=== PATIENT | male | born 1950 | race Caucasian/White ===

== ENCOUNTER 2022-06-09 15:52 | Inpatient (IN) | payer MEDICARE, OTHER, SELFPAY ==
[2022-06-09] MEDS: ACETAMINOPHEN 325 MG TABLET 650 MG PO (17:55)
[2022-06-09] MEDS: HYDROcodone/acetaminophen (*CRX) 5-325 MG TABLET 1 TAB PO (19:57)
[2022-06-09 20:00] VITALS: O2SAT 90
--- NOTE | 2022-06-09 21:09 | PM.IMHP ---
H&P: HPI History of Present Illness Date/Time: 06/09/22 21:09 Chief Complaint: rehab/ weakness Narrative: this is a 71-year-old male that came to our facility for swing bed placement After went into respiratory distress at an outside hospital and being intubated. Patient was also treated for DKA, influenza , pneumonia . and NSTEMI. patient has a past medical history of heart failure ,diabetes. Patient admitted in swing bed for rehabilitation due to decreased balance decreased mobility in severe limited function endurant and/or mobility. The patient denies SOB, CP, palpitation, extremity numbness, lightheadedness, dizziness, constipation, diarrhea, chills, or fever. Review of Systems Review of Systems: All systems reviewed & are unremarkable except as noted in HPI and below PMFSH Past Medical History Medical History (Updated 06/09/22 @ 21:30 by SALINA Cueto) Anemia Congestive heart failure Diabetes mellitus type 2, insulin dependent Social History Social History Smoking status: Never smoker Second hand tobacco smoke exposure: No Alcohol intake: never Substance use: never Substance use type: does not use Lack of Transportation: No Lack of Food: Never True Current Housing: I Have Housing Concerned About Future Housing: No Difficulty Paying Gas/Electric Bills: No Difficulty Paying for Meds: No Currently Unemployed: No Education: High School Diploma/GED Difficulty w/ Childcare or Family Care: No Spiritual care concerns: No Meds Home Medications and Allergies Home Medications Medication Instructions Recorded Confirmed Type Adult Multivitamin with Iron 1 tab-cap PO DAILY 06/09/22 06/09/22 History aspirin 81 mg tablet,delayed 81 mg PO DAILY 06/09/22 06/09/22 History release atorvastatin 80 mg BYMOUTH HS 06/09/22 06/09/22 History carvedilol 12.5 mg tablet (Coreg) 12.5 mg PO BID 06/09/22 06/09/22 History febuxostat 40 mg tablet 40 mg PO DAILY 06/09/22 06/09/22 History ferrous sulfate 325 mg (65 mg 325 mg PO DAILY 06/09/22 06/09/22 History iron) tablet (Feosol) fluticasone 250 mcg-salmeterol 50 1 inh inhalation Q12H 06/09/22 06/09/22 History mcg/dose blistr powdr for inhalation (Wixela Inhub) hydralazine 50 mg tablet 50 mg PO Q6H 06/09/22 06/09/22 History insulin lispro protamine-lispro 35 unit subcut BID 06/09/22 06/09/22 History 100 unit/mL (75-25) subcutaneous pen (Humalog Mix 75-25 KwikPen) levetiracetam 500 mg tablet 500 mg PO DAILY 06/09/22 06/09/22 History (Keppra) losartan 50 mg tablet (Cozaar) 50 mg PO BID 06/09/22 06/09/22 History metformin 1,000 mg tablet 1,000 mg PO BID 06/09/22 06/09/22 History pantoprazole 40 mg tablet,delayed 40 mg PO BID 06/09/22 06/09/22 History release (Protonix) potassium chloride 20 mEq 20 meq PO DAILY 06/09/22 06/09/22 History tablet,extended release(part/cryst) (Klor-Con M) sertraline 100 mg tablet (Zoloft) 100 mg PO DAILY 06/09/22 06/09/22 History sucralfate 1 gram tablet (Carafate) 1 g PO TIDWMEAL 06/09/22 06/09/22 History Allergies Allergy/AdvReac Type Severity Reaction Status Date / Time Cephalosporins Allergy Unknown Verified 06/09/22 17:46 pioglitazone Allergy Unknown Verified 06/09/22 17:46 Exam Narrative: GENERAL: This is a well-nourished, well-developed patient, in no apparent distress. HEAD: normocephalic, atraumatic. EYES: PERRL. Sclera clear/white. Vision is grossly intact. EARS: External ears normal, auditory canals clear and without drainage, TMs normal without perforation. Hearing grossly intact. NOSE: External nose normal with no obvious nasal discharge, nares without redness, no rhinorrhea. THROAT: Mucous membranes moist, posterior pharynx clear. NECK: Neck supple, non-tender without lymphadenopathy, masses or thyromegaly. CARDIOVASCULAR: Regular rate and rhythm without murmurs, gallops, or rubs. RESPIRATORY: Clear to auscultation. Breath sounds equal bilaterally. No
[2022-06-09 21:12] LABS: Glucose Point of Care 238 mg/dl (65-105)
[2022-06-09] MEDS: hydrALAZINE HCL 25 MG TABLET 50 MG PO (21:23)
[2022-06-09] MEDS: LOSARTAN POTASSIUM 50 MG TABLET PO (21:23)
[2022-06-09 21:24] VITALS: PULSE 73
[2022-06-09] MEDS: carvediloL 12.5 MG TABLET PO (21:24)
[2022-06-09] MEDS: ATORVASTATIN 40 MG TABLET 80 MG BY MOUTH (21:24)
[2022-06-09] MEDS: PANTOPRAZOLE 40 MG TABLET PO (21:25)
[2022-06-09] MEDS: SUCRALFATE 1 GM TABLET PO (21:25)
[2022-06-09] MEDS: SALMET XINAFT/FLUTIC PROPIN 250 MCG/50 MCG INH CAP 1 PUFF INHALATION (21:26)
--- NOTE | 2022-06-09 22:31 | ADMGEN ---
This patient, Craig Pool, was admitted to 2nd Floor Room 210-1. Patient/family oriented to hospital policies and general routines including ID bracelet, bed and alarms, visiting hours, pain management, procedures, bathroom and other care routines, personal items, smoking policy, room service/diet, and visiting hours.
[2022-06-09 23:10] VITALS: BP 144/52; PULSE 72; RESP 17; TEMP 36.8; O2SAT 91
[2022-06-10] MEDS: HYDROcodone/acetaminophen (*CRX) 5-325 MG TABLET 1 TAB PO ×3 (03:19→21:02)
[2022-06-10 05:20] LABS: Hematocrit 28.3 % (37.0-46.0); Mean Corpuscular HGB Conc 31.8 g/dL (32.0-36.0); Mean Corpuscular Hemoglobin 29.9 pg (27.0-31.0); Mean Platelet Volume 11.1 fl (8.7-11.0); Platelet Count Result 296 K/mm3 (150-420); Red Blood Count 3.01 M/mm3 (4.70-6.10); White Blood Count 8.9 K/mm3 (4.8-10.8)
[2022-06-10 05:35] LABS: Anion Gap 9 mmol/L (8-16); Blood Urea Nitrogen 15 mg/dL (7-18); Calcium 8.3 mg/dL (8.5-10.1); Carbon Dioxide 25 mmol/L (21-32); Chloride 104 mmol/L (98-108); Estimated Glomerular Filt Rate > 60; Glucose 210 mg/dL (70-99); Osmolality Calculated 292 mOsm/kg (285-295); Sodium 138 mmol/L (136-145)
[2022-06-10] MEDS: SALMET XINAFT/FLUTIC PROPIN 250 MCG/50 MCG INH CAP 1 PUFF INHALATION ×2 (06:23→18:12)
[2022-06-10] MEDS: hydrALAZINE HCL 25 MG TABLET 50 MG PO ×3 (06:23→18:12)
[2022-06-10 08:00] VITALS: BP 164/70; PULSE 82; RESP 15; TEMP 36.8; O2SAT 91
[2022-06-10 08:07] LABS: Glucose Point of Care 218 mg/dl (65-105)
[2022-06-10] MEDS: SUCRALFATE 1 GM TABLET PO ×3 (08:49→18:12)
[2022-06-10 08:50] VITALS: PULSE 82
[2022-06-10] MEDS: POTASSIUM CHLORIDE 20 MEQ TABLET PO (08:50)
[2022-06-10] MEDS: PANTOPRAZOLE 40 MG TABLET PO ×2 (08:50→18:12)
[2022-06-10] MEDS: carvediloL 12.5 MG TABLET PO ×2 (08:50→18:12)
[2022-06-10] MEDS: LOSARTAN POTASSIUM 50 MG TABLET PO ×2 (08:51→18:12)
[2022-06-10] MEDS: FERROUS SULFATE 324 MG TABLET PO (08:51)
[2022-06-10] MEDS: SERTRALINE HCL 50 MG TABLET 100 MG PO (08:51)
[2022-06-10] MEDS: levETIRAcetam 500 MG TABLET PO (08:51)
[2022-06-10] MEDS: LIDOCAINE 5% PATCH 1 PATCH TRANSDERM (08:51)
[2022-06-10] MEDS: ASPIRIN 81 MG ENTERIC TABLET PO (08:51)
[2022-06-10 11:53] LABS: Glucose Point of Care 268 mg/dl (65-105)
[2022-06-10 16:00] VITALS: BP 147/52; PULSE 74; RESP 20; TEMP 36.8; O2SAT 95
[2022-06-10 17:14] LABS: Glucose Point of Care 283 mg/dl (65-105)
[2022-06-10 18:12] VITALS: PULSE 74
[2022-06-10] MEDS: traMADol HCL (*CRX) 25 MG TABLET PO (19:50)
[2022-06-10] MEDS: ATORVASTATIN 40 MG TABLET 80 MG BY MOUTH (21:01)
[2022-06-10] MEDS: traZODone HCL 50 MG TABLET PO (21:09)
[2022-06-10 21:10] LABS: Glucose Point of Care 219 mg/dl (65-105)
[2022-06-10 23:12] VITALS: BP 155/65; PULSE 66; RESP 16; TEMP 36.6; O2SAT 92
[2022-06-11] MEDS: hydrALAZINE HCL 25 MG TABLET 50 MG PO ×5 (00:20→23:24)
[2022-06-11] MEDS: HYDROcodone/acetaminophen (*CRX) 5-325 MG TABLET 1 TAB PO ×2 (03:10→21:04)
[2022-06-11] MEDS: SALMET XINAFT/FLUTIC PROPIN 250 MCG/50 MCG INH CAP 1 PUFF INHALATION ×2 (05:59→17:48)
[2022-06-11 08:00] VITALS: BP 141/63; PULSE 98; RESP 22; O2SAT 96
[2022-06-11 08:01] LABS: Glucose Point of Care 157 mg/dl (65-105)
[2022-06-11] MEDS: SERTRALINE HCL 50 MG TABLET 100 MG PO (10:02)
[2022-06-11] MEDS: LIDOCAINE 5% PATCH 1 PATCH TRANSDERM (10:02)
[2022-06-11 10:03] VITALS: PULSE 88
[2022-06-11] MEDS: levETIRAcetam 500 MG TABLET PO (10:03)
[2022-06-11] MEDS: POTASSIUM CHLORIDE 20 MEQ TABLET PO (10:03)
[2022-06-11] MEDS: LOSARTAN POTASSIUM 50 MG TABLET PO ×2 (10:03→17:43)
[2022-06-11] MEDS: carvediloL 12.5 MG TABLET PO ×2 (10:03→17:43)
[2022-06-11] MEDS: ASPIRIN 81 MG ENTERIC TABLET PO (10:03)
[2022-06-11] MEDS: SUCRALFATE 1 GM TABLET PO ×3 (10:03→17:44)
[2022-06-11] MEDS: PANTOPRAZOLE 40 MG TABLET PO ×2 (10:03→17:44)
[2022-06-11] MEDS: FERROUS SULFATE 324 MG TABLET PO (10:04)
[2022-06-11 12:10] LABS: Glucose Point of Care 234 mg/dl (65-105)
[2022-06-11 16:00] VITALS: BP 147/64; PULSE 68; RESP 22; TEMP 36.6; O2SAT 96
[2022-06-11 16:49] LABS: Glucose Point of Care 282 mg/dl (65-105)
[2022-06-11 17:43] VITALS: PULSE 84
[2022-06-11] MEDS: traZODone HCL 50 MG TABLET PO (21:04)
[2022-06-11] MEDS: ATORVASTATIN 40 MG TABLET 80 MG BY MOUTH (21:04)
[2022-06-11] MEDS: LORazepam (*CRX) 0.5 MG TABLET PO (21:05)
[2022-06-11 21:13] LABS: Glucose Point of Care 223 mg/dl (65-105)
[2022-06-11 23:24] VITALS: BP 156/59; PULSE 73; RESP 15; TEMP 36.8; O2SAT 91
[2022-06-12] MEDS: SALMET XINAFT/FLUTIC PROPIN 250 MCG/50 MCG INH CAP 1 PUFF INHALATION ×2 (06:18→18:21)
[2022-06-12] MEDS: hydrALAZINE HCL 25 MG TABLET 50 MG PO ×4 (06:18→23:20)
[2022-06-12 07:31] LABS: Glucose Point of Care 129 mg/dl (65-105)
[2022-06-12 08:00] VITALS: BP 176/82; PULSE 77; TEMP 36.8; O2SAT 92
[2022-06-12] MEDS: SUCRALFATE 1 GM TABLET PO ×3 (08:06→16:39)
[2022-06-12] MEDS: POTASSIUM CHLORIDE 20 MEQ TABLET PO (09:00)
[2022-06-12] MEDS: ASPIRIN 81 MG ENTERIC TABLET PO (09:03)
[2022-06-12] MEDS: SERTRALINE HCL 50 MG TABLET 100 MG PO (09:04)
[2022-06-12 09:05] VITALS: PULSE 90
[2022-06-12] MEDS: LOSARTAN POTASSIUM 50 MG TABLET PO ×2 (09:05→16:38)
[2022-06-12] MEDS: levETIRAcetam 500 MG TABLET PO (09:05)
[2022-06-12] MEDS: FERROUS SULFATE 324 MG TABLET PO (09:05)
[2022-06-12] MEDS: carvediloL 12.5 MG TABLET PO ×2 (09:05→16:39)
[2022-06-12] MEDS: PANTOPRAZOLE 40 MG TABLET PO ×2 (09:05→17:17)
[2022-06-12] MEDS: HYDROcodone/acetaminophen (*CRX) 5-325 MG TABLET 1 TAB PO ×2 (10:00→20:10)
--- NOTE | 2022-06-12 10:02 | PC.NURSE ---
Patient c/o pain to epigastric/chest area PRN norco given, AGRICULTURAL LOAN OFFICER informed. Patient has great deal of anxiety
--- NOTE | 2022-06-12 10:10 | P.PNCROSS_ITS ---
Event Note Event Note Event Note: patient complains a cough, congestion, allergies and back pain. will add medi cation for treatment
[2022-06-12] MEDS: BENZONATATE 100 MG CAPSULE 200 MG PO ×3 (10:34→16:39)
[2022-06-12] MEDS: DICLOFENAC SODIUM 1% 100 GM GEL (*BKC) 1 APPLIC TOPICAL ×4 (10:35→20:09)
[2022-06-12] MEDS: guaiFENesin 12 HR 600 MG TABCR 1200 MG PO ×2 (10:35→20:09)
[2022-06-12] MEDS: LORATADINE 10 MG TABLET PO (10:35)
[2022-06-12 11:52] LABS: Glucose Point of Care 286 mg/dl (65-105)
--- NOTE | 2022-06-12 13:27 | PC.NURSE ---
Patient reports neck pain improved with Voltaren cream and pain medication. Independent in room
[2022-06-12 16:00] VITALS: BP 173/76; PULSE 68; RESP 18; TEMP 36.8; O2SAT 95
[2022-06-12 16:39] VITALS: PULSE 69
[2022-06-12 16:49] LABS: Glucose Point of Care 250 mg/dl (65-105)
[2022-06-12 20:00] VITALS: PULSE 69; RESP 18; O2SAT 95
[2022-06-12] MEDS: traZODone HCL 50 MG TABLET PO (20:09)
[2022-06-12] MEDS: FLUTICASONE PROPIONATE 0.05% NA SPR 16 GM BTL (*BKC) 1 SPRAY NASAL (20:09)
[2022-06-12] MEDS: LORazepam (*CRX) 0.5 MG TABLET PO (20:10)
[2022-06-12] MEDS: ATORVASTATIN 40 MG TABLET 80 MG BY MOUTH (20:10)
[2022-06-12 20:14] LABS: Glucose Point of Care 289 mg/dl (65-105)
[2022-06-12 23:52] VITALS: BP 143/60; PULSE 76; RESP 17; TEMP 36.6; O2SAT 95
[2022-06-13 05:30] LABS: Hematocrit 30.2 % (37.0-46.0); Hemoglobin 9.4 g/dL (12.4-15.3)
[2022-06-13] MEDS: SALMET XINAFT/FLUTIC PROPIN 250 MCG/50 MCG INH CAP 1 PUFF INHALATION ×2 (05:34→19:38)
[2022-06-13] MEDS: hydrALAZINE HCL 25 MG TABLET 50 MG PO ×4 (05:34→23:32)
[2022-06-13 08:00] VITALS: BP 174/72; PULSE 74; RESP 18; TEMP 36.5; O2SAT 97
[2022-06-13 08:21] LABS: Glucose Point of Care 170 mg/dl (65-105)
[2022-06-13] MEDS: FLUTICASONE PROPIONATE 0.05% NA SPR 16 GM BTL (*BKC) 1 SPRAY NASAL ×2 (09:18→21:11)
[2022-06-13] MEDS: DICLOFENAC SODIUM 1% 100 GM GEL (*BKC) 1 APPLIC TOPICAL ×4 (09:18→21:11)
[2022-06-13 09:19] VITALS: PULSE 78
[2022-06-13] MEDS: SERTRALINE HCL 50 MG TABLET 100 MG PO (09:19)
[2022-06-13] MEDS: carvediloL 12.5 MG TABLET PO ×2 (09:19→16:47)
[2022-06-13] MEDS: POTASSIUM CHLORIDE 20 MEQ TABLET PO (09:20)
[2022-06-13] MEDS: PANTOPRAZOLE 40 MG TABLET PO ×2 (09:20→16:47)
[2022-06-13] MEDS: BENZONATATE 100 MG CAPSULE 200 MG PO ×3 (09:20→16:46)
[2022-06-13] MEDS: ASPIRIN 81 MG ENTERIC TABLET PO (09:21)
[2022-06-13] MEDS: levETIRAcetam 500 MG TABLET PO (09:21)
[2022-06-13] MEDS: LORATADINE 10 MG TABLET PO (09:22)
[2022-06-13] MEDS: SUCRALFATE 1 GM TABLET PO ×3 (09:22→16:45)
[2022-06-13] MEDS: LOSARTAN POTASSIUM 50 MG TABLET PO ×2 (09:22→16:47)
[2022-06-13] MEDS: FERROUS SULFATE 324 MG TABLET PO (09:22)
[2022-06-13] MEDS: guaiFENesin 12 HR 600 MG TABCR 1200 MG PO ×2 (09:26→21:10)
[2022-06-13] MEDS: HYDROcodone/acetaminophen (*CRX) 5-325 MG TABLET 1 TAB PO ×2 (09:33→21:11)
[2022-06-13 11:30] LABS: Glucose Point of Care 264 mg/dl (65-105)
--- NOTE | 2022-06-13 14:47 | PC.NURSE ---
pt after working out with therapy and and bending and standing had a small amt of brownish looking sputum after coughing it up.
[2022-06-13 16:00] VITALS: BP 169/85; PULSE 78; RESP 18; TEMP 36.5; O2SAT 95
[2022-06-13 16:33] LABS: Glucose Point of Care 247 mg/dl (65-105)
[2022-06-13 16:47] VITALS: PULSE 77
[2022-06-13] MEDS: traZODone HCL 50 MG TABLET PO (21:10)
[2022-06-13] MEDS: ATORVASTATIN 40 MG TABLET 80 MG BY MOUTH (21:11)
[2022-06-13] MEDS: LORazepam (*CRX) 0.5 MG TABLET PO (21:14)
[2022-06-13 21:22] LABS: Glucose Point of Care 209 mg/dl (65-105)
[2022-06-13 23:08] VITALS: BP 152/76; PULSE 69; RESP 17; TEMP 36.9; O2SAT 98
[2022-06-14] MEDS: ACETAMINOPHEN 325 MG TABLET 650 MG PO (05:14)
[2022-06-14] MEDS: hydrALAZINE HCL 25 MG TABLET 50 MG PO ×2 (05:14→12:17)
[2022-06-14] MEDS: SALMET XINAFT/FLUTIC PROPIN 250 MCG/50 MCG INH CAP 1 PUFF INHALATION (05:31)
[2022-06-14 08:00] VITALS: BP 180/78; PULSE 84; RESP 18; TEMP 36.6; O2SAT 97
[2022-06-14 08:11] LABS: Glucose Point of Care 161 mg/dl (65-105)
[2022-06-14] MEDS: FLUTICASONE PROPIONATE 0.05% NA SPR 16 GM BTL (*BKC) 1 SPRAY NASAL (08:50)
[2022-06-14] MEDS: HYDROcodone/acetaminophen (*CRX) 5-325 MG TABLET 1 TAB PO (08:51)
[2022-06-14] MEDS: ASPIRIN 81 MG ENTERIC TABLET PO (08:52)
[2022-06-14] MEDS: SUCRALFATE 1 GM TABLET PO ×2 (08:52→12:18)
[2022-06-14] MEDS: SERTRALINE HCL 50 MG TABLET 100 MG PO (08:52)
[2022-06-14] MEDS: BENZONATATE 100 MG CAPSULE 200 MG PO ×2 (08:52→12:18)
[2022-06-14] MEDS: DICLOFENAC SODIUM 1% 100 GM GEL (*BKC) 1 APPLIC TOPICAL ×2 (08:52→12:17)
[2022-06-14] MEDS: PANTOPRAZOLE 40 MG TABLET PO (08:52)
[2022-06-14 08:53] VITALS: PULSE 82
[2022-06-14] MEDS: LOSARTAN POTASSIUM 50 MG TABLET PO (08:53)
[2022-06-14] MEDS: guaiFENesin 12 HR 600 MG TABCR 1200 MG PO (08:53)
[2022-06-14] MEDS: LORATADINE 10 MG TABLET PO (08:53)
[2022-06-14] MEDS: FERROUS SULFATE 324 MG TABLET PO (08:53)
[2022-06-14] MEDS: carvediloL 12.5 MG TABLET PO (08:53)
[2022-06-14] MEDS: levETIRAcetam 500 MG TABLET PO (08:53)
[2022-06-14] MEDS: POTASSIUM CHLORIDE 20 MEQ TABLET PO (08:53)
[2022-06-14] MEDS: traMADol HCL (*CRX) 25 MG TABLET PO (10:52)
[2022-06-14] MEDS: LORazepam (*CRX) 0.5 MG TABLET PO (11:04)
[2022-06-14 11:06] VITALS: BP 180/94; PULSE 86; RESP 18; TEMP 36.3; O2SAT 92
[2022-06-14 12:03] LABS: Influenza A QL RT-PCR Negative (Negative); Influenza B QL RT-PCR Negative (Negative); SARS-CoV-2 RNA PCR Negative (Negative)
[2022-06-14 12:04] LABS: RSV RNA, RT-PCR Negative (Negative)
[2022-06-14 12:13] LABS: Troponin I 92.7 ng/L (0.00-60.4)
--- NOTE | 2022-06-14 12:13 | ECG_ITS ---
Measurements Intervals [place] Rate: 89 P: 81 MA: 138 QRS: 41 QRSD: 93 T: -52 QT: 372 QTc: 454 Interpretive Statements SINUS RHYTHM SHORT MA INTERVAL POSSIBLE RIGHT VENTRICULAR CONDUCTION DELAY [RSR (QR) IN V1/V2] NONSPECIFIC ST & T-WAVE ABNORMALITY ABNORMAL NO PREVIOUS ECG AVAILABLE FOR COMPARISON Electronically Signed On 06-15-2022 7:17:38 HAND TIER by Franklin Mcneill M.D.
--- NOTE | 2022-06-14 12:14 | PM.EVENT ---
Event Note Event Note Event Note: Patient complaining of severe back pain and it has radiated to his back and he has some nausea noted. Trop ordered which are critical we will see what EKG is showing and attempt to transfer
--- NOTE | 2022-06-14 12:47 | PM.EVENT ---
Event Note Event Note Event Note: Troponins is 92.7 Dr. Ernandez is patient normal fermentation operator and he has accepted patient . has come with the disk for the hospital to see the clogged arteries but due to bleeding ulcer they were not able to place on anticoagulation
[2022-06-14 13:00] LABS: Troponin I 366.2 ng/L (0.00-60.4)
--- NOTE | 2022-06-14 13:17 | PM.DS ---
DS: Admitting Diagnosis Discharge Date 06/14/2022 Admitting Diagnosis Weakness, GI Bleed DS: Discharge Diagnosis Discharge Diagnosis (1) Anemia: Code(s): D64.9 - Anemia, unspecified Status: Acute Assessment and Plan: secondary to iron deficiency anemia and GI bleed iron panel completed patient will continue supplement patient will have to follow up with GI specialist (2) History of GI bleed: Code(s): Z87.19 - Personal history of other diseases of the digestive system Status: Acute Assessment and Plan: endoscopic completed at outside hospital gastric ulcer status post clipping x4 completed patient will need to follow up with GI outpatient for colonoscopy in June (3) DONNY (obstructive sleep apnea): Code(s): G47.33 - Obstructive sleep apnea (adult) (pediatric) Status: Acute Assessment and Plan: patient does not use CPAP at home (4) Congestive heart failure: Code(s): I50.9 - Heart failure, unspecified Status: Acute Assessment and Plan: systolic CHF EF of 40% patient will need to follow up with Cardiology for outpatient catheterization PCI in [facility] thoracentesis completed on 06/05 left 530 mL and right 550 (5) Diabetes mellitus type 2, insulin dependent: Code(s): E11.9 - Type 2 diabetes mellitus without complications; Z79.4 - senior living (current) use of insulin Status: Acute Assessment and Plan: A1c pending continue active stents with sliding scale hypoglycemic protocol continue home medication (6) Weakness: Code(s): R53.1 - Weakness Status: Acute Assessment and Plan: ? Exhibit tolerance during physical activity as evidenced by a normal fluctuation of vital signs during physical activity. ? Patient will be ability to perform required activities of daily living. ? Provide appropriate nutrition for healing and strength. ? Use appropriate to prevent falls. ? Continue physical therapy/occupational therapy. (7) Non-STEMI (non-ST elevated myocardial infarction): Code(s): I21.4 - Non-ST elevation (NSTEMI) myocardial infarction Status: Acute Assessment and Plan: Troponin evaluated pt complaining of back pain radiating to his left arm ASA 325 Nitro started prior to transfer 5mcg (8) Elevated troponin: Code(s): R77.8 - Other specified abnormalities of plasma proteins Status: Acute DS: Summary Hospital Course Reason for hospitalization: Swing pt for rehab Hospital Course: Transferred to [facility] and hospitalist started on Nitro drip and recvd ASA This is a 71-year-old male that was admitted to the hospital as a swing patient he came from outlying facility due to weakness as he had had a GI bleed and non-STEMI approximately 1 month ago patient had been complaining stating that he had back pain but the back pain was going to his back his arm he became diaphoretic he was not feeling well and just wanted something for pain. I checked patient's troponins which were slightly elevated at 90 and I repeated in 4 hours later troponins went to 290 started patient on a nitro drip due to high blood pressure gave the patient 325 of aspirin called spoke with [place] grout machine operator about starting heparin drip patient recently had a GI bleed with some bleeding ulcers at this time he was deferred and they will evaluate patient as to if he needs a heparin. patient initially refused to transfer after arrived he agreed Time Spent with Patient Time attestation: Total time spent providing and/or coordinating discharge services: Exam Narrative: GENERAL: This is a well-nourished, well-developed patient, in no apparent distress. HEAD: normocephalic, atraumatic. EYES: PERRL. Sclera clear/white. Vision is grossly intact. EARS: External ears normal, t. NOSE: External nose normal with no obvious nasal discharge, nares without redness, no rhinorrhe
[2022-06-14 14:22] VITALS: BP 167/79; PULSE 88
[2022-06-14] MEDS: NITROGLYCERIN/D5W 200 MCG/ML 50 MG/250 ML BTL IV CONT (14:22)
[2022-06-14] MEDS: ASPIRIN 81 MG CHEWABLE TABLET 243 MG PO (14:29)
--- NOTE | 2022-06-14 15:14 | PC.NURSE ---
1130 patient up in room. claims he has had chills off and on all night. claims pain meds given to him earilier has had no relief. claims he feels a little nauseated. claims the pain is in lower back and his neck is stiff more than usual. tells other staff pain goes down his arms and rubs his r arm. no c/o voiced about radiating pain to this nurse. denies any pain at this time. does co sob c/o lungs feeling tight. did hear some wheezes. prn ativan and pain med given. tack picker aware. covid swabs and flu swabs obtained.--kvrn 1230 claims pain is gone. just wants to go home. kvrn 1320 in room. claims he is not having pains any more. just tired due to no sleep last night. iv started in l hand.--------kvrn 1520 report given to tanesha at [facility]. awaiting for tranfer at this time. cont to still deny cp or any. sleepy. at bedside. nitro gtt cont. kvrn
[2022-06-14 15:28] VITALS: BP 178/84; PULSE 72; RESP 18; TEMP 36.6; O2SAT 93
[2022-06-14 15:54] VITALS: BP 180/70; PULSE 72; RESP 18; TEMP 36.1; O2SAT 92
[2022-06-14 16:28] LABS: Glucose Point of Care 238 mg/dl (65-105)
--- NOTE | 2022-06-14 17:49 | PC.NURSE ---
1645 ambulance here care turned over. bp 152/79. denies cp. nitro gtt cont. walked over to stretcher. care turned over.
--- NOTE | 2022-06-19 13:33 | PC.NURSE ---
Medications finalized on chart.
[2022-07-11 15:31] LABS: Glucose Point of Care 312 mg/dl (65-105)
== END 2022-06-14 16:45 | disposition short-term general hospital (02) | DRG 947 ==
PROVIDERS: Nurse Practitioner; Nurse Practitioner Family; Admitting Provider Internal Medicine; PCP Family Medicine; Visit Provider Internal Medicine
DX: R53.1 Weakness (principal); I21.4 Non-ST elevation (NSTEMI) myocardial infarction; I50.22 Chronic systolic (congestive) heart failure; E11.9 Type 2 diabetes mellitus without complications; D50.0 Iron deficiency anemia secondary to blood loss (chronic); D50.9 Iron deficiency anemia, unspecified; R77.8 Other specified abnormalities of plasma proteins; G47.33 Obstructive sleep apnea (adult) (pediatric); Z20.822 Contact with and (suspected) exposure to COVID-19; Z79.4 Long term (current) use of insulin; Z79.82 Long term (current) use of aspirin; Z87.11 Personal history of peptic ulcer disease
CPT/HCPCS: 36415; 80048; 82948; 84484; 85014; 85018; 85027; 87637; 93005; 97110; 97161; 97165; 97530; 97535; A9270; J1815

== ENCOUNTER 2024-07-06 14:44 | Emergency (ER) | payer MEDICARE, SELFPAY ==
[2024-07-06] VITALS (44 sets, daily range): BP systolic 160–219; BP diastolic 68–127; PULSE 74–98; RESP 12–25; TEMP 36.9–37.6; O2SAT 81–97
--- NOTE | ~2024-07-06 | CT_ITS ---
CTA brain carotid Ordering provider: Franklin Lopez MD History: . Fall, possible head injury/ AMS/ unsteady gait . Comparison: None. Technique: CT angiogram head and neck was performed following timed intravenous injection of contrast . Thin slice axial images and reformatted coronal images were obtained. Three dimensional reformatted images of the brain were also obtained using a [employer] workstation. DLP: 1201 mGy-cm FINDINGS: HEAD: --ANTERIOR AND MIDDLE CEREBRAL ARTERIES AND BRANCHES: Normal caliber and contour. --INTERNAL CAROTID ARTERIES: Moderate diffuse atheromatous disease without significant stenosis. No o cclusion. --BASILAR ARTERY AND BRANCHES: Normal caliber and contour. No discrete atheromatous disease. --POSTERIOR CEREBRAL ARTERIES: Normal caliber and contour --POSTERIOR COMMUNICATING ARTERIES: Not well visualized likely related to congenital absence or small size. --ANEURYSM: None visualized. --BRAIN: Please refer to report of CT head performed the same day. --BONES AND SUPERFICIAL SOFT TISSUES: Please refer to report of CT head performed the same day. --PARANASAL SINUSES AND MASTOIDS: Please refer to report of CT head done the same day. NECK: --RIGHT CERVICAL CAROTID SYSTEM: Mild atheromatous disease of the carotid bulb and proximal internal carotid artery without significant stenosis. Percent stenosis per NASCET criteria is 0%. No carotid dissection. No significant stenosis of the right-sided cervical carotid system. --LEFT CERVICAL CAROTID SYSTEM: Mild atheromatous disease of the carotid bulb and proximal external c arotid artery without significant stenosis. Percent stenosis per NASCET criteria is 0% No carotid di ssection. No significant stenosis of the left-sided cervical carotid system. --VERTEBRAL ARTERIES: Moderate atheromatous disease, specifically within the left vertebral artery, w ith otherwise normal caliber and contour. --VISUALIZED AORTIC ARCH AND BRANCHING VESSELS: Mild atheromatous disease but no significant stenosis . --SOFT TISSUES: Unremarkable --CERVICAL SPINE: Age advanced degenerative changes. LUNGS: Patchy groundglass opacification within the right hemithorax with diffuse nodularity. Dedicate d CT examination of the chest is recommended. IMPRESSION: 1. Unremarkable CTA head of the and neck. 2. Percent stenosis per NASCET criteria is 0%, bilaterally. 3. Patchy groundglass opacification within the right hemithorax with diffuse nodularity. Dedicated C T examination of the chest is recommended. Reviewed, dictated and finalized at location A. ICITY PERSON IMPRESSION: 1. Unremarkable CTA head of the and neck. 2. Percent stenosis per NASCET criteria is 0%, bilaterally. 3. Patchy groundglass opacification within the right hemithorax with diffuse n odularity. Dedicated CT examination of the chest is recommended.
--- NOTE | ~2024-07-06 | CT_ITS ---
Clinical indication:Abnormal lung apices on CT examination of the cervical spine COMPARISON:CT of the cervical spine dated 07/06/2024 TECHNIQUE: Multiple contiguous axial images of the chest were performed without the administration of intravenous contrast. FINDINGS: Patchy groundglass consolidation within both the right middle and lower lobes. A small right-sided pl eural effusion is also noted. Interstitial thickening is detected throughout the remainder of the bilateral lung rincon. No acute displaced right-sided rib fracture is appreciated. (Although examination is somewhat limited by motion artifact). No discrete abnormality is identified within the overlying soft tissues. Calcified atherosclerotic disease is identified within the coronary arteries. IMPRESSION: Patchy groundglass consolidation within the right middle and lower lobes for which infectious/inflamm atory source is suspected. Small right-sided pleural effusion. Reviewed, dictated and finalized at location A. YOLOGY TEACHER IMPRESSION: Patchy groundglass consolidation within the right middle and lower lobes for wh ich infectious/inflammatory source is suspected. Small right-sided pleural effusion.
--- NOTE | ~2024-07-06 | CT_ITS ---
History: Bilateral lower extremity paresthesias and subjective slurred speech PROCEDURE: CT cervical spine without intravenous contrast. COMPARISON: None TECHNIQUE: Multiple contiguous axial images of the cervical spine were performed without the administration of i ntravenous contrast. DLP: mGy-cm FINDINGS: Straightening and slight reversal of the normal curvature of the cervical spine is identified, likely muscular in origin. Severe degenerative disease is identified, with osteophyte formation, and disc space narrowing. Endplate changes are also noted, as well as hypertrophy of the facets. No acute fractures are present. Left apical scarring. The remainder of the bilateral apices are unremarkable. No soft tissue abnormality is present. The airway is patent.. Impression: Straightening and slight reversal of the normal curvature of the cervical spine, likely muscular in o rigin. Degenerative disease, without acute fracture. Reviewed, dictated and finalized at location A. TRONICS COMPUTER MECHANIC Impression: Straightening and slight reversal of the normal curvature of the cervical spine , likely muscular in origin. Degenerative disease, without acute fracture.
--- NOTE | ~2024-07-06 | CT_ITS ---
History: Altered mental status. Fall, possible head injury. PROCEDURE: CT head without contrast. COMPARISON: None TECHNIQUE: Axial imaging of the head performed from the skull base to the vertex without IV contrast. Sagittal a nd coronal reformations obtained. DLP: 605 mGy-cm FINDINGS: The ventricles are normal in size, shape and position. There is no mass, mass effect or midline shift. There is no abnormal extra-axial fluid collection or intracranial hemorrhage. Visualized paranasal sinuses are clear. The mastoid air cells are well aerated. No acute displaced fractures within the overlying cranium. Impression: No acute intracranial hemorrhage or suspicious mass effect. Reviewed, dictated and finalized at location A. P TECH Impression: No acute intracranial hemorrhage or suspicious mass effect.
--- NOTE | ~2024-07-06 | XR_ITS ---
HISTORY: fall, Lt. shoulder pain/ limited ROM COMPARISON: None TECHNIQUE: 4 views of the left shoulder were performed FINDINGS: No acute fracture. Trace widening of the acromioclavicular joint space is identified (measuring 6.9 mm in width) suggest ing acromioclavicular joint injury The glenohumeral joint space is maintained The visualized portion of the adjacent left lung is clear. The humeral head is well seated within the glenoid fossa. IMPRESSION: No acute fracture or anterior dislocation. Possible acromioclavicular joint injury, as detailed above. Reviewed, dictated and finalized at location A. H PAINTER
--- NOTE | 2024-07-06 15:04 | ED.GENADULT ---
HPI - General Adult General Chief complaint: Altered Mental Status Stated complaint: shoulder pain, weakness Source: patient Mode of arrival: ambulatory Limitations: no limitations History of Present Illness HPI narrative: 73-year-old white male slipped on the ice yesterday and fell against his truck hitting his head and his left shoulder. Since then he has had soreness in the left shoulder difficult to move around. Today they were at a restaurant and patient was unable to order for himself as he normally does. He really was not acting right got up from the table his asked him where he was going. Patient stated outside but this was not appropriate at the time. patient spilled coffee on his cells twice and spilled coffee on the table twice. stated even bulwark carpenter thought there was something wrong with him. He was driving erratically all over the road according to the . Complains of pain in left shoulder hurts to move it. Otherwise been eating drinking voiding and stooling fine. said he does not have a history of dementia but his primary care provider wanted him to do a memory test last April and he got angry and left the office. His blood sugar was 268 per today is on insulin takes 30 units in the morning. stated he slept late as he always does woke up at 1:00 p.m.. says last known well was last night. Past medical history: History of DKA diabetes influenza pneumonia non-STEMI heart failure CPAP for obstructive sleep apnea Related Data Home Medications ?Medication ?Instructions ?Recorded ?Confirmed ?Last Taken ?Type Adult Multivitamin with Iron 1 tab-cap PO DAILY 06/09/22 06/09/22 Unknown History aspirin 81 mg tablet,delayed 81 mg PO DAILY 06/09/22 06/09/22 Unknown History release atorvastatin 80 mg BYMOUTH HS 06/09/22 06/09/22 Unknown History carvedilol 12.5 mg tablet (Coreg) 12.5 mg PO BID 06/09/22 06/09/22 Unknown History febuxostat 40 mg tablet 40 mg PO DAILY 06/09/22 06/09/22 Unknown History ferrous sulfate 325 mg (65 mg 325 mg PO DAILY 06/09/22 06/09/22 Unknown History iron) tablet (Feosol) fluticasone 250 mcg-salmeterol 50 1 inh inhalation Q12H 06/09/22 06/09/22 Unknown History mcg/dose blistr powdr for inhalation (Wixela Inhub) hydralazine 50 mg tablet 50 mg PO Q6H 06/09/22 06/09/22 Unknown History insulin lispro protamine-lispro 35 unit subcut BID 06/09/22 06/09/22 Unknown History 100 unit/mL (75-25) subcutaneous pen (Humalog Mix 75-25 KwikPen) levetiracetam 500 mg tablet 500 mg PO DAILY 06/09/22 06/09/22 Unknown History (Keppra) losartan 50 mg tablet (Cozaar) 50 mg PO BID 06/09/22 06/09/22 Unknown History metformin 1,000 mg tablet 1,000 mg PO BID 06/09/22 06/09/22 Unknown History pantoprazole 40 mg tablet,delayed 40 mg PO BID 06/09/22 06/09/22 Unknown History release (Protonix) potassium chloride 20 mEq 20 meq PO DAILY 06/09/22 06/09/22 Unknown History tablet,extended release(part/cryst) (Klor-Con M) sertraline 100 mg tablet (Zoloft) 100 mg PO DAILY 06/09/22 06/09/22 Unknown History sucralfate 1 gram tablet (Carafate) 1 g PO TIDWMEAL 06/09/22 06/09/22 Unknown History Allergies Allergy/AdvReac Type Severity Reaction Status Date / Time Cephalosporins Allergy Unknown Verified 07/06/24 15:39 pioglitazone Allergy Unknown Verified 07/06/24 15:39 Review of Systems Review of Systems: All systems reviewed & are unremarkable except as noted in HPI and below [facility] Past Medical History Medical History (Updated 07/06/24 @ 20:48 by Franklin Lopez MD) Anemia Congestive heart failure Diabetes mellitus type 2, insulin dependent Social History Social History Smoking status: Never smoker Second hand tobacco smoke exposure: No Alcohol intake: never Substance use: never Substance use type: does not use Lack of Transportation: No Lack of Food: Never True Current Housing: I Have Housing Concerned About Future Housing: No Difficulty Paying Gas/Electric Bills: No Difficulty Paying for Meds: No Currently Unemployed: No Education: High School Diploma/GED Difficulty w/ Childcare or Family Care: No Spiritual care concerns: No Exam Narrative: ?White male patient with no apparent distress.? Knows where he is at does not really know why his called the ambulance. He knows the month and the president his name his . Head normocephalic, atraumatic.? Eyes conjunctiva pink sclera nonicteric.? Extraocular movements are intact.? Ears externally normal.? Oropharynx is clear with moist mucous membranes without exudates.? Neck is supple nontender no lymphadenopathy.? Back is nontender.? Lungs are clear.? Heart is regular rate and rhythm without murmurs gallops or rubs.? Chest wall nontender. Abdomen is soft and nontender no hepatosplenomegaly or masses no CVA tenderness no abdominal bruits.? Extremities no cyanosis clubbing or edema.? Skin is warm and dry without rashes or lesions.? Neurological patient is alert and oriented x4.? Motor and sensory grossly intact.? Gait is normal. Patient cannot remember 3 objects within seconds of me she showing them to him and hiding them away. NIH scale 6 Course Vital Signs Vital signs: Vital Signs Temperature 37.4 C 07/06/24 14:44 Pulse Rate 87 07/06/24 14:44 Respiratory Rate 20 07/06/24 14:44 Blood Pressure 210/83 H 07/06/24 14:44 Pulse Oximetry 94 07/06/24 14:44 Oxygen Delivery Room Air 07/06/24 14:44 Temperature 36.9 C 07/06/24 18:00 Pulse Rate 84 07/06/24 20:32 Respiratory Rate 20 07/06/24 20:32 Blood Pressure 174/74 H 07/06/24 20:32 Pulse Oximetry 95 07/06/24 20:32 Oxygen Delivery Nasal Cannula 07/06/24 18:00 Oxygen Flow Rate 4 07/06/24 19:39 Medical Decision Making [facility] Narrative Medical decision making narrative: ?Patient placed in room: 7 with his by EMS, blood cultures drawn ? History and physical was performed. CT head with out contrast was negative per radiologist CT head neck with IV contrast: IMPRESSION: 1. Unremarkable CTA head of the and neck. 2. Percent stenosis per NASCET criteria is 0%, bilaterally. 3. Patchy groundglass opacification within the right hemithorax with diffuse nodularity. Dedicated CT examination of the chest is recommended. right shoulder x-ray: Possible AC separation. Negative troponin ETOH and coags. WBC 16 H&H 10.6 and 32.2 Potassium 3.2 BUN 35 creatinine 1.93 blood sugar 282 Osmo 306 GFR 34 alk phos 122 the rest of CMP is normal. Magnesium 1.5 Lactic acid 1.0 UA and THERAPY ASSISTANT urine showed +2 protein otherwise was negative ABGs On 4 L nasal cannula COVID flu RSV All negative CT chest without per radiologist: IMPRESSION: Patchy groundglass consolidation within the right middle and lower lobes for which infectious/inflammatory source is suspected. Small right-sided pleural effusion. Independent Historian: EMS External Source Review: Differential Dx includes but not limited to: stroke fracture dislocation internal hemorrhage cerebral hemorrhage Medications were Reviewed: medicines reviewed Medications given: normal saline 125 an hour, KCL 40 mEq p.o., Levaquin 500 IV Independently Interpreted by me: EKG shows sinus rhythm at rate 89 right bundle-branch block left anterior fascicular block impression abnormal EKG is independently interpreted by me. Patient had a RSR prime pattern on his EKG 2 years ago May 2022. Shared decision Making: Evaluation discussed with patient his all questions were asked and answered and they agreed with plan. Social Situation Impacting Patients Care: history of TIA 2 years ago associated with the same symptomatology trouble naming things altered mental status at that time he also had pneumonia and influenza. Discussed with [place] nurse practitioner at 4:47 p.m.. She stated patient needs a higher levels care where he can have an MRI evaluation by Neurology for stroke Discussed with Drs. Jesus and Chelly at [facility] accepts transfer and patient will be admitted to inpatient ICU DISCHARGE DIAGNOSIS: Altered mental status, probable acute ischemic stroke, renal insufficiency, mild hypokalemia, hypomagnesemia , pneumonia DISPOSITION : transfer to higher care CONDITION AT DISCHARGE: stable Vital Signs Vital Signs: Vital Signs Temperature 37.4 C 07/06/24 14:44 Pulse Rate 87 07/06/24 14:44 Respiratory Rate 20 07/06/24 14:44 Blood Pressure 210/83 H 07/06/24 14:44 Pulse Oximetry 94 07/06/24 14:44 Oxygen Delivery Room Air 07/06/24 14:44 Temperature 36.9 C 07/06/24 18:00 Pulse Rate 84 07/06/24 20:32 Respiratory Rate 20 07/06/24 20:32 Blood Pressure 174/74 H 07/06/24 20:32 Pulse Oximetry 95 07/06/24 20:32 Oxygen Delivery Nasal Cannula 07/06/24 18:00 Oxygen Flow Rate 4 07/06/24 19:39 Lab Data 07/06/24 15:52 07/06/24 15:52 Labs: Lab Results 07/06/24 07/06/24 07/06/24 Range/Units 15:52 16:03 18:02 WBC 16.0 H (4.8-10.8) K/mm3 RBC 3.55 L (4.70-6.10) M/mm3 Hgb 10.6 L (12.4-15.3) g/dL Hct 32.2 L (37.0-46.0) % MCV 90.7 (78.0-102.0) fL MCH 29.9 (27.0-31.0) pg MCHC 32.9 (32-36) g/dL RDW 13.2 (11.6-14.4) % Plt Count 188 (150-420) K/mm3 MPV 12.1 H (8.7-11.0) fl PT 10.8 (9.50-12.1) Seconds INR 1.0 APTT 27.1 (23.9-30.70) Sec Sodium 139 (136-145) mmol/L Potassium 3.2 L (3.5-5.1) mmol/L Chloride 100 (98-108) mmol/L Carbon Dioxide 25 (21-32) mmol/L Anion Gap 14 H (4-12) mmol/L BUN 35 H (7-18) mg/dL Creatinine 1.93 H (0.70-1.30) mg/dL Estim Creat Clear Calc 31 ml/min Estimated GFR 34 L (59 - ) Glucose 282 H (70-99) mg/dL Calculated Osmolality 306 H (285-295) mOsm/kg Lactic Acid 1.0 (0.4-2.0) mmol/L Calcium 8.7 (8.5-10.1) mg/dL Magnesium 1.5 L (1.8-2.4) mg/dL Total Bilirubin 0.7 (0.00-1.00) mg/dL AST 20 (15-37) U/L ALT 35 (16-63) U/L Alkaline Phosphatase 122 H (46-116) U/L Troponin I 20.7 (0.00-60.4) ng/L Total Protein 6.9 (6.4-8.2) g/dL Albumin 3.5 (3.4-5.0) g/dL Urine Color Light yellow (Yellow) Urine Appearance Clear (Clear) Urine pH 5.5 (5.0-8.0) Ur Specific [place] 1.015 (1.010-1.020) Urine Protein 2+ H (Negative) Urine Glucose (UA) Negative (Negative) Urine Ketones Negative (Negative) Ur Blood (Man) Negative (Negative) Urine Nitrate Negative (Negative) Urine Bilirubin Negative (Negative) Urine Urobilinogen 0.2 (0.2-1.0) mg/dL Leukocyte Esterase Rfl Negative (Negative) TORY/UL Amorphous Sediment Few H (None) Ethyl Alcohol < 3 (0-6) mg/dL Influenza A (RT-PCR) Negative (Negative) Influenza B (RT-PCR) Negative (Negative) RSV (RT-PCR) Negative (Negative) SARS-CoV-2 RNA (RT-PCR) Negative (Negative) ABG Data ABG results: 07/06/24 18:44 Puncture Site Right radial ABG pH 7.43 ABG pCO2 33.3 L ABG pO2 84.0 ABG PO2/FiO2 Ratio Not Reportable ABG HCO3 21.7 L ABG O2 Saturation 95.1 ABG O2 Content 15.9 L ABG Base Excess -2.0 L A-a Gradient Not Reportable Oxyhemoglobin 94.6 O2 Delivery Device Nasal cannula O2 Liters/Min 4.0 Discharge Plan Discharge Clinical Impression: Acute alteration in mental status, Acute ischemic stroke, Renal insufficiency Pneumonia Qualifiers: Pneumonia type: due to unspecified organism Laterality: unspecified laterality Lung location: unspecified part of lung Qualified Code(s): J18.9 - Pneumonia, unspecified organism Patient Disposition: Acute Care Hospital Condition: Stable Additional Instructions: Drs. Jesus and Chelly at [facility] accepts transfer and patient will be admitted to inpatient ICU Patient Language: Portuguese Prescriptions: No Action atorvastatin 80 mg BYMOUTH HS losartan [Cozaar] 50 mg Tablet 50 mg PO BID fluticasone propion-salmeterol [Wixela Inhub] 250-50 mcg/dose Blister With Device 1 inh INHALATION Q12H carvedilol [Coreg] 12.5 mg Tablet 12.5 mg PO BID Rx Instructions: must administer with a meal/food levetiracetam [Keppra] 500 mg Tablet 500 mg PO DAILY sucralfate [Carafate] 1 gram Tablet 1 g PO TIDWMEAL aspirin 81 mg Tablet,Delayed Release (Dr/Ec) 81 mg PO DAILY potassium chloride [Klor-Con M20] 20 mEq Tablet,Er Particles/Crystals 20 meq PO DAILY pantoprazole [Protonix] 40 mg Tablet,Delayed Release (Dr/Ec) 40 mg PO BID ferrous sulfate [Feosol] 325 mg (65 mg iron) Tablet 325 mg PO DAILY metformin 1,000 mg Tablet 1,000 mg PO BID hydralazine 50 mg Tablet 50 mg PO Q6H Rx Instructions: hold if sbp<120 insulin lispro protamin-lispro [Humalog Mix 75-25 KwikPen] 100 unit/mL (75-25) Insulin Pen 35 unit SUBCUT BID febuxostat 40 mg Tablet 40 mg PO DAILY sertraline [Zoloft] 100 mg Tablet 100 mg PO DAILY Adult Multivitamin with Iron 1 tab-cap PO DAILY Follow-up/Referrals: Adrienne Marin MD [Primary Care Provider] - Time of Disposition: 20:48
--- NOTE | 2024-07-06 15:17 | ECG_ITS ---
Test Date: 2024-07-06 15:42:03 Measurements Intervals [place] Rate: 89 P: 50 NM: 151 QRS: -57 QRSD: 158 T: 9 QT: 404 QTc: 492 Interpretive Statements SINUS RHYTHM RIGHT BUNDLE BRANCH BLOCK [120+ ms QRS DURATION, UPRIGHT V1, 40+ ms S IN I/aVL/V4/V5/V6] LEFT ANTERIOR FASCICULAR BLOCK [QRS AXIS <= -45, QR IN I, RS IN II] No previous ECG available for comparison Electronically Signed On 07-07-2024 21:55:56 LIBRARY MONITOR by Amy Mueller M.D.
[2024-07-06 16:08] LABS: Hematocrit 32.2 % (37.0-46.0); Hemoglobin 10.6 g/dL (12.4-15.3); Mean Corpuscular HGB Conc 32.9 g/dL (32-36); Mean Corpuscular Hemoglobin 29.9 pg (27.0-31.0); Mean Corpuscular Volume 90.7 fL (78.0-102.0); Mean Platelet Volume 12.1 fl (8.7-11.0); Platelet Count Result 188 K/mm3 (150-420); Red Blood Count 3.55 M/mm3 (4.70-6.10); Red Cell Distribution Width 13.2 % (11.6-14.4)
[2024-07-06 16:15] LABS: Partial Thromboplastin Time 27.1 Sec (23.9-30.70); Prothrombin Time 10.8 Seconds (9.50-12.1)
[2024-07-06 16:20] LABS: Alanine Aminotransferase 35 U/L (16-63); Albumin Level 3.5 g/dL (3.4-5.0); Alkaline Phosphatase 122 U/L (46-116); Anion Gap 14 mmol/L (4-12); Aspartate Amino Transferase 20 U/L (15-37); Bilirubin,Total 0.7 mg/dL (0.00-1.00); Blood Urea Nitrogen 35 mg/dL (7-18); Calcium 8.7 mg/dL (8.5-10.1); Carbon Dioxide 25 mmol/L (21-32); Chloride 100 mmol/L (98-108); Estimated CRCL calculation 31 ml/min; Estimated Glomerular Filt Rate 34; Glucose 282 mg/dL (70-99); Magnesium 1.5 mg/dL (1.8-2.4); Osmolality Calculated 306 mOsm/kg (285-295); Potassium 3.2 mmol/L (3.5-5.1); Sodium 139 mmol/L (136-145); Total Protein 6.9 g/dL (6.4-8.2); Troponin I 20.7 ng/L (0.00-60.4)
[2024-07-06 16:25] LABS: Ethanol < 3 mg/dL (0-6)
[2024-07-06 16:51] LABS: Add Urine Microscopic? YES; Appearance Urine Clear (Clear); Bilirubin Urine Negative (Negative); Blood Urine Negative (Negative); Color Urine Light Yellow (Yellow); Glucose Urine UA Negative (Negative); Ketones Urine Negative (Negative); Leukocyte Esterase Ur Negative LEU/UL (Negative); Nitrate Urine Negative (Negative); Protein Urine 2+ (Negative); Specific Grav Ur 1.015 (1.010-1.020); Urobilinogen Urine 0.2 mg/dL (0.2-1.0); pH Urine 5.5 (5.0-8.0)
[2024-07-06 17:01] LABS: Amorphous Sediment Urine Few
[2024-07-06] MEDS: SODIUM CHLORIDE 0.9% IV 1,000 ML 125 ML IV CONT (17:16)
[2024-07-06] MEDS: KCL 20 MEQ/SW 100 ML 100 ML 50 MEQ IVPB (17:59)
[2024-07-06 18:49] LABS: HCO3 ABG 21.7 mmol/L (23-29); Oxygen Content ABG 15.9 %vol (16.0-22.0); Oxygen Saturation ABG 95.1 % (95-97); Oxyhemoglobin 94.6 % (94-100); PCO2 ABG 33.3 mmHg (35-45); pH ABG 7.43 (7.35-7.45)
[2024-07-06 18:50] LABS: Device NASAL CANNULA; Modified Allen's Test Pass; Site Drawn RIGHT RADIAL
[2024-07-06 18:56] LABS: SARS-CoV-2 RNA PCR Negative (Negative)
[2024-07-06 18:57] LABS: Influenza A QL RT-PCR Negative (Negative); Influenza B QL RT-PCR Negative (Negative); RSV RNA, RT-PCR Negative (Negative)
--- NOTE | 2024-07-06 19:19 | PC.NURSE ---
Report received, pt assessed and noted resting w/ at bedside. Pt will open eyes to verbal, is A&O x2 at this time. Pt VSS, awaiting results and POC is to transfer. Pts stated his neuro Dr is at [facility] and would like transfer to this facility.
[2024-07-06] MEDS: niCARdipine 20 MG/200 ML 20 MG/200 ML BAG 30 MG IV CONT (19:38)
--- NOTE | 2024-07-06 19:54 | PC.NURSE ---
RESTING QUIETLY ON STRETCHER. WAITING ON RADIOLOGY RESULTS. DENIES ANY NEEDS
[2024-07-06] MEDS: levoFLOXacin 500 MG/D5W 100 ML 500 MG/100 ML BAG 100 MG IVPB (19:55)
--- NOTE | 2024-07-06 20:40 | PC.NURSE ---
Pt resting on side, having chills and warm blankets given. Pt noted to have temp of 99.2. Call back received from [facility] and accepting Carl[facility]. Will await call for bed assignment. Continuing to monitor, vss
--- NOTE | 2024-07-06 21:20 | PC.NURSE ---
Report given to Christophe Snow at [facility] for transfer.
[2024-07-08 07:40] LABS: Total Hemoglobin 11.9 g/dL (12.0-18.0)
--- NOTE | 2024-07-09 12:08 | PC.NURSE ---
PRELIMINARY BLOOD CULTURE RESULTS X2: NO GROWTH TO DATE
== END 2024-07-06 21:52 | disposition short-term general hospital (02) ==
PROVIDERS: Emergency Provider Emergency Medicine; PCP Internal Medicine
DX: I63.9 Cerebral infarction, unspecified (principal); J18.9 Pneumonia, unspecified organism; N28.9 Disorder of kidney and ureter, unspecified; I50.9 Heart failure, unspecified; E11.9 Type 2 diabetes mellitus without complications; I25.2 Old myocardial infarction; Z79.4 Long term (current) use of insulin; W00.0XXA Fall on same level due to ice and snow, initial encounter; Z20.822 Contact with and (suspected) exposure to COVID-19
CPT/HCPCS: 36415; 36600; 70450; 70496; 70498; 71250; 72125; 73030; 80053; 81001; 82077; 82805; 83605; 83735; 84484; 85018; 85027; 85610; 85730; 87040; 87637; 93005; 96361; 96365; 96366; 96367; 99285; J1956; J2404; J3480; J7030; Q9967

== ENCOUNTER 2024-07-15 10:29 | Emergency (ER) | payer MEDICARE, SELFPAY ==
[2024-07-15] VITALS (78 sets, daily range): BP systolic 67–200; BP diastolic 40–125; PULSE 0–97; RESP 13–28; TEMP 37.1; O2SAT 90–100
--- NOTE | ~2024-07-15 | XR_ITS ---
EXAMINATION: XR chest 1V portable DATE: 07/15/2024 11:13 INDICATION: Pneumonia. TECHNIQUE: A single frontal view of the chest was obtained. COMPARISON: Chest CT 07/06/2024 FINDINGS: There are airspace opacities in all lung zones bilaterally. There is a small right pleural effusion. No pneumothorax. Cardiomegaly is noted. There are suture anchors in right humeral head. IMPRESSION: 1. Diffuse lung disease, consistent with pulmonary edema versus pneumonia. 2. Small right pleural effusion. 3. Cardiomegaly. Reviewed, dictated and finalized at location B. E TESTER
--- NOTE | 2024-07-15 10:39 | ECG_ITS ---
Test Date: 2024-07-15 10:52:54 Measurements Intervals [place] Rate: 89 P: 83 DE: 124 QRS: -70 QRSD: 144 T: 72 QT: 379 QTc: 463 Interpretive Statements PROBABLE SINUS RHYTHM POSSIBLE LEFT ATRIAL ENLARGEMENT [-0.1mV P-WAVE IN V1/V2] RIGHT BUNDLE BRANCH BLOCK [120+ ms QRS DURATION, UPRIGHT V1, 40+ ms S IN I/aVL/V4/V5/V6] BASELINE ARTIFACT LIMITS INTERPRETATION Compared to ECG 07/06/2024 15:42:03 BASELINE ARTIFCAT LIMITS INTERPRETATION Electronically Signed On 07-17-2024 12:32:52 FRAME EXPANDER by Maritza Barbour M.D.
--- NOTE | 2024-07-15 10:42 | ED_ITS ---
HPI - SOB/Dyspnea General Chief Complaint: Shortness of Breath/Dyspnea Stated Complaint: weakness & short of breathe Time Seen by Provider: 07/15/24 10:39 Source: patient, family () and EMS Mode of arrival: EMS Limitations: clinical condition History of Present Illness HPI Narrative: 73 year old male arrives to the Emergency Department via EMS. EMS was called for difficulty breathing. Patient was admitted to [facility] and left 2 days ago AMA. He was seen here 07/06/24 and transferred after work up for altered mental status. He was thought to have had a stroke and was diagnosed with pneumonia. EMS state patient was mckeon and had O2 sats in 60's. He was given DuoNeb and placed on BiPap. 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) Context: recent illness (pneumonia) Severity: severe Exacerbating factors: nothing Relieving factors: nothing Treatment prior to arrival: oxygen, bronchodilator and other (BiPap) Related Data Home oxygen amount: none Home Medications ?Medication ?Instructions ?Recorded ?Confirmed ?Last Taken ?Type Adult Multivitamin with Iron 1 tab-cap PO DAILY 06/09/22 06/09/22 Unknown History aspirin 81 mg tablet,delayed 81 mg PO DAILY 06/09/22 06/09/22 Unknown History release atorvastatin 80 mg BYMOUTH HS 06/09/22 06/09/22 Unknown History carvedilol 12.5 mg tablet (Coreg) 12.5 mg PO BID 06/09/22 06/09/22 Unknown History febuxostat 40 mg tablet 40 mg PO DAILY 06/09/22 06/09/22 Unknown History ferrous sulfate 325 mg (65 mg 325 mg PO DAILY 06/09/22 06/09/22 Unknown History iron) tablet (Feosol) fluticasone 250 mcg-salmeterol 50 1 inh inhalation Q12H 06/09/22 06/09/22 Unknown History mcg/dose blistr powdr for inhalation (Wixela Inhub) hydralazine 50 mg tablet 50 mg PO Q6H 06/09/22 06/09/22 Unknown History insulin lispro protamine-lispro 35 unit subcut BID 06/09/22 06/09/22 Unknown History 100 unit/mL (75-25) subcutaneous pen (Humalog Mix 75-25 KwikPen) levetiracetam 500 mg tablet 500 mg PO DAILY 06/09/22 06/09/22 Unknown History (Keppra) losartan 50 mg tablet (Cozaar) 50 mg PO BID 06/09/22 06/09/22 Unknown History metformin 1,000 mg tablet 1,000 mg PO BID 06/09/22 06/09/22 Unknown History pantoprazole 40 mg tablet,delayed 40 mg PO BID 06/09/22 06/09/22 Unknown History release (Protonix) potassium chloride 20 mEq 20 meq PO DAILY 06/09/22 06/09/22 Unknown History tablet,extended release(part/cryst) (Klor-Con M) sertraline 100 mg tablet (Zoloft) 100 mg PO DAILY 06/09/22 06/09/22 Unknown History sucralfate 1 gram tablet (Carafate) 1 g PO TIDWMEAL 06/09/22 06/09/22 Unknown History Allergies Allergy/AdvReac Type Severity Reaction Status Date / Time Cephalosporins Allergy Unknown Verified 07/06/24 15:39 pioglitazone Allergy Unknown Verified 07/06/24 15:39 Review of Systems 2 Review of Systems: All systems reviewed & are unremarkable except as noted in HPI and below ROS unobtainable: Yes unobtainable due to medical condition Constitutional: Constitutional: Reports as per HPI Eyes: Eyes: Reports as per HPI ENT: Reports system reviewed and no additional complaints, except as documented Cardiovascular: Cardiovascular: Reports as per HPI and Denies chest pain Respiratory: Respiratory: Reports as per HPI and Reports dyspnea Gastrointestinal: Gastrointestinal: Reports as per HPI Genitourinary: Genitourinary: Reports no additional male genitourinary complaints Musculoskeletal: Musculoskeletal: Reports no additional musculoskeletal complaints Integumentary/Breasts: Skin/Breast: Reports system reviewed and no additional complaints, except as docu Neurologic: Reports system reviewed and no additional complaints, except as documented Psychiatric: Psychiatric: Reports no additional psychiatric complaints Endocrine: Endocrine: Reports no additional endocrine complaints Hematologic/Lymphatic: Hematologic/Lymphatic: Reports no additional hematologic/lymphatic complaints Allergic/Immunologic: Allergic/Immunologic: Reports no additional allergic/immunologic complaints PMFSH Past Medical History Medical History Anemia Congestive heart failure Diabetes mellitus type 2, insulin dependent Social History Social History Smoking status: Never smoker Second hand tobacco smoke exposure: No Alcohol intake: never Substance use: never Substance use type: does not use Lack of Transportation: No Lack of Food: Never True Current Housing: I Have Housing Concerned About Future Housing: No Difficulty Paying Gas/Electric Bills: No Difficulty Paying for Meds: No Currently Unemployed: No Education: High School Diploma/GED Difficulty w/ Childcare or Family Care: No Spiritual care concerns: No Exam 2 Const: General: ill appearing Nutritional Appearance: well nourished O rientation/consciousness: patient oriented x3 Limitations: physical limitations HENMT: Head: normal to inspection Ears: external ears normal F mina/Nose/Sinus: Normal external nose present Face and sinus: normal facial exam Mouth: Yes Normal oral and palatal mucosa present Teeth and gingiva: dentition normal Eyes: Pupils: Equal, round and reactive pupils present EOM: EOMs intact bilaterally Direct Ophthalmoscopy: no photophobia Neck: Neck: normal visual inspection and no meningeal signs Chest: Chest palpation & inspection: normal inspection of the chest Resp: Effort & Inspection: labored and tachypneic Auscultation: rhonchi Other: on BiPap Cardio: Rate: regular rate Rhythm: regular rhythm Heart sounds: no murmurs GI: Inspection: non-distended GI Palp: Yes Soft to palpation and No Tenderness to palpation present (GI) : General: Yes bladder normal to palpation Back/Spine/Pelvis: Back: no CVA tenderness Skin: General skin exam: normal color Rashes: no rashes Neuro: Other: grossly normal Extrem: General: normal to inspection and no clubbing, cyanosis or edema Course Course Emergency Course: 73 y/o male arrives to the ED via EMS for respiratory distress. EMS found patient mckeon, low O2 sats. Gave DuoNeb and placed on BiPap. PE: on BiPap, tachypnea, few coarse scattered breath sounds CBC: H/H 9/28.2, Plt 283; wbc 16.4 with 89 S, 3 L, 6 M CMP: Na 141, K 3.7, Cl 104, CO2 23, Glc 401, BUN 59, Cr 3.19; LFT's normal FSBS (1610): >499 FSBS (1750): 460 TNI: 1208 / 2 Hr TNI: 1500 EKG: NSR, 89, LAD, RBBB, ST depression lateral AB.34/ 222/ 35/ 19, 99% BiPap 100% BNP: 5509 D-dimer: 3.81 Covid: negative Influenza: negative RSV: negative PCXR: pulm edema vs pneumonia; small R pl eff; CM INR/PT/PTT: 1.1/ 11.6/ 28.8 Tx: court recording monitor, pulse ox, BiPap, saline lock. [attempted to wean BiPap, patient has more difficulty]. Blair. Lasix 40 mg IVP. Heparin 4000 U bolus and drip 900 U/hr. NS 200 cc/hr, Reg insulin 10 U IVP. Insulin 10 U Reg IVP. (1330) discussed with Drs. Garcia (Hospitalist) and Edin (Retail Parts Professional) at [facility]. Report given. Patient accepted for transfer. Will call back with bed assignment. ([id number]) Bed assigned ICU 217. ([id number]) EMS here for transfer Vital Signs Vital signs: Vital Signs Pulse Rate 92 07/15/24 10:30 Respiratory Rate 26 H 07/15/24 10:30 Pulse Oximetry 97 07/15/24 10:30 Oxygen Delivery BiPAP 07/15/24 10:30 Temperature 37.1 C 07/15/24 10:37 Pulse Rate 86 07/15/24 17:31 Respiratory Rate 15 07/15/24 17:31 Blood Pressure 187/91 H 07/15/24 17:31 Pulse Oximetry 94 07/15/24 17:31 Oxygen Delivery BiPAP 07/15/24 16:26 Oxygen Flow Rate 14 07/15/24 10:57 Fraction of Inspired Oxygen 60 07/15/24 10:57 Transfer Transfered to: [facility] Transportation: ALS Transfer rationale: Higher level of care Accepting physician: Dr. Garcia (Hospitalist) - Accepting physician Dr. Jesus (Retail Parts Professional) MDM - SOB/Dyspnea Lab Data 07/15/24 10:39 07/15/24 10:39 Labs: Lab Results 07/15/24 07/15/24 07/15/24 Range/Units 10:39 10:41 12:41 WBC 16.4 H (4.8-10.8) K/mm3 RBC 3.09 L (4.70-6.10) M/mm3 Hgb 9.0 L (12.4-15.3) g/dL Hct 28.2 L (37.0-46.0) % MCV 91.3 (78.0-102.0) fL MCH 29.1 (27.0-31.0) pg MCHC 31.9 L (32-36) g/dL RDW 13.5 (11.6-14.4) % Plt Count 283 (150-420) K/mm3 MPV 11.3 H (8.7-11.0) fl Immature Gran % (Auto) 1.2 H (0.0-0.0) % Neut % (Auto) 88.6 H (50.0-70.0) % Lymph % (Auto) 3.2 L (18.0-42.0) % [place] % (Auto) 5.6 (2.0-11.0) % Eos % (Auto) 0.8 L (1.0-6.0) % Baso % (Auto) 0.6 (0.0-1.0) % Lymph # (Auto) 0.52 L (1.10-4.50) K/mm3 [place] # (Auto) 0.91 H (0.10-0.90) K/mm3 Eos # (Auto) 0.13 (0.02-0.50) K/mm3 Baso # (Auto) 0.09 (0.00-0.10) K/mm3 Abs Immat Gran (auto) 0.20 H (0.00-0.00) K/mm3 Absolute Neuts (auto) 14.51 H (1.70-7.20) K/mm3 Absolute Nucleated RBC 0.00 (0.00-0.00) K/mm3 Nucleated RBC % 0.0 (0-0.0) % PT 11.6 (9.50-12.1) Seconds INR 1.1 APTT 28.8 (23.9-30.70) Sec D-Dimer 3.81 H* (0.19-0.50) mg/L Expiratory Pressure 7 cmH2O Inspiratory Pressure 14 cmH2O Sodium 141 (136-145) mmol/L Potassium 3.7 (3.5-5.1) mmol/L Chloride 104 (98-108) mmol/L Carbon Dioxide 23 (21-32) mmol/L Anion Gap 14 H (4-12) mmol/L BUN 59 H (7-18) mg/dL Creatinine 3.19 H (0.70-1.30) mg/dL Estim Creat Clear Calc 18 ml/min Estimated GFR 19 L (59 - ) Glucose 401 H* (70-99) mg/dL POC Capillary Glucose (65-105) mg/dl Calculated Osmolality 325 H (285-295) mOsm/kg Calcium 8.9 (8.5-10.1) mg/dL Total Bilirubin 0.7 (0.00-1.00) mg/dL AST 26 (15-37) U/L ALT 25 (16-63) U/L Alkaline Phosphatase 92 (46-116) U/L Troponin I 1208.0 H* 1499.7 H* (0.00-60.4) ng/L NT-Pro-B Natriuret Pep 5509 H (0-125) pg/mL Total Protein 7.0 (6.4-8.2) g/dL Albumin 3.1 L (3.4-5.0) g/dL Influenza A (RT-PCR) Negative (Negative) Influenza B (RT-PCR) Negative (Negative) RSV (RT-PCR) Negative (Negative) SARS-CoV-2 RNA (RT-PCR) Negative (Negative) 07/15/24 07/15/24 Range/Units 16:12 17:55 WBC (4.8-10.8) K/mm3 RBC (4.70-6.10) M/mm3 Hgb (12.4-15.3) g/dL Hct (37.0-46.0) % MCV (78.0-102.0) fL MCH (27.0-31.0) pg MCHC (32-36) g/dL RDW (11.6-14.4) % Plt Count (150-420) K/mm3 MPV (8.7-11.0) fl Immature Gran % (Auto) (0.0-0.0) % Neut % (Auto) (50.0-70.0) % Lymph % (Auto) (18.0-42.0) % [place] % (Auto) (2.0-11.0) % Eos % (Auto) (1.0-6.0) % Baso % (Auto) (0.0-1.0) % Lymph # (Auto) (1.10-4.50) K/mm3 [place] # (Auto) (0.10-0.90) K/mm3 Eos # (Auto) (0.02-0.50) K/mm3 Baso # (Auto) (0.00-0.10) K/mm3 Abs Immat Gran (auto) (0.00-0.00) K/mm3 Absolute Neuts (auto) (1.70-7.20) K/mm3 Absolute Nucleated RBC (0.00-0.00) K/mm3 Nucleated RBC % (0-0.0) % PT (9.50-12.1) Seconds INR APTT (23.9-30.70) Sec D-Dimer (0.19-0.50) mg/L Expiratory Pressure cmH2O Inspiratory Pressure cmH2O Sodium (136-145) mmol/L Potassium (3.5-5.1) mmol/L Chloride (98-108) mmol/L Carbon Dioxide (21-32) mmol/L Anion Gap (4-12) mmol/L BUN (7-18) mg/dL Creatinine (0.70-1.30) mg/dL Estim Creat Clear Calc ml/min Estimated GFR (59 - ) Glucose (70-99) mg/dL POC Capillary Glucose > 450 H > 450 H (65-105) mg/dl Calculated Osmolality (285-295) mOsm/kg Calcium (8.5-10.1) mg/dL Total Bilirubin (0.00-1.00) mg/dL AST (15-37) U/L ALT (16-63) U/L Alkaline Phosphatase (46-116) U/L Troponin I (0.00-60.4) ng/L NT-Pro-B Natriuret Pep (0-125) pg/mL Total Protein (6.4-8.2) g/dL Albumin (3.4-5.0) g/dL Influenza A (RT-PCR) (Negative) Influenza B (RT-PCR) (Negative) RSV (RT-PCR) (Negative) SARS-CoV-2 RNA (RT-PCR) (Negative) ABG Data ABG results: 07/15/24 10:39 Puncture Site Right radial ABG pH 7.34 L ABG pCO2 35.3 ABG pO2 222.2 H ABG PO2/FiO2 Ratio Not Reportable ABG HCO3 18.7 L ABG O2 Saturation 98.7 H ABG O2 Content 15.3 L ABG Base Excess -6.4 L A-a Gradient Not Reportable Oxyhemoglobin 98.0 Total Hemoglobin 10.7 L O2 Delivery Device Bipap O2 Liters/Min 100.0 Critical Care Time Critical Care Time Critical Care Time: Yes Total Critical Care Time: 60 Discharge Plan Discharge Clinical Impression: Non-STEMI (non-ST elevated myocardial infarction), Congestive heart failure, Anemia, Renal failure (ARF), acute on chronic, Acute hyperglycemia, Pneumonia, D-dimer, elevated Patient Disposition: Acute Care Hospital Condition: Serious Patient Language: Honduran Prescriptions: No Action atorvastatin 80 mg BYMOUTH HS losartan [Cozaar] 50 mg Tablet 50 mg PO BID fluticasone propion-salmeterol [Wixela Inhub] 250-50 mcg/dose Blister With Device 1 inh INHALATION Q12H carvedilol [Coreg] 12.5 mg Tablet 12.5 mg PO BID Rx Instructions: must administer with a meal/food levetiracetam [Keppra] 500 mg Tablet 500 mg PO DAILY sucralfate [Carafate] 1 gram Tablet 1 g PO TIDWMEAL aspirin 81 mg Tablet,Delayed Release (Dr/Ec) 81 mg PO DAILY potassium chloride [Klor-Con M20] 20 mEq Tablet,Er Particles/Crystals 20 meq PO DAILY pantoprazole [Protonix] 40 mg Tablet,Delayed Release (Dr/Ec) 40 mg PO BID ferrous sulfate [Feosol] 325 mg (65 mg iron) Tablet 325 mg PO DAILY metformin 1,000 mg Tablet 1,000 mg PO BID hydralazine 50 mg Tablet 50 mg PO Q6H Rx Instructions: hold if sbp<120 insulin lispro protamin-lispro [Humalog Mix 75-25 KwikPen] 100 unit/mL (75-25) Insulin Pen 35 unit SUBCUT BID febuxostat 40 mg Tablet 40 mg PO DAILY sertraline [Zoloft] 100 mg Tablet 100 mg PO DAILY Adult Multivitamin with Iron 1 tab-cap PO DAILY Follow-up/Referrals: Adrienne Marin MD [Primary Care Provider] - Time of Disposition: 17:12
[2024-07-15 10:46] LABS: Base Excess ABG -6.4 mmol/L (0-2); Basophils Absolute Auto 0.09 K/mm3 (0.00-0.10); Basophils Percent Auto 0.6 % (0.0-1.0); Eosinophils Absolute Auto 0.13 K/mm3 (0.02-0.50); Eosinophils Percent Auto 0.8 % (1.0-6.0); HCO3 ABG 18.7 mmol/L (23-29); Hematocrit 28.2 % (37.0-46.0); Immature Granulocyte Percent A 1.2 % (0.0-0.0); Lymphocytes Absolute Auto 0.52 K/mm3 (1.10-4.50); Lymphocytes Percent Auto 3.2 % (18.0-42.0); Mean Corpuscular HGB Conc 31.9 g/dL (32-36); Mean Corpuscular Hemoglobin 29.1 pg (27.0-31.0); Mean Corpuscular Volume 91.3 fL (78.0-102.0); Mean Platelet Volume 11.3 fl (8.7-11.0); Monocytes Absolute Auto 0.91 K/mm3 (0.10-0.90); Monocytes Percent Auto 5.6 % (2.0-11.0); Neutrophils Absolute Auto 14.51 K/mm3 (1.70-7.20); Neutrophils Percent Auto 88.6 % (50.0-70.0); Oxygen Content ABG 15.3 %vol (16.0-22.0); Oxygen Saturation ABG 98.7 % (95-97); PCO2 ABG 35.3 mmHg (35-45); PO2 ABG 222.2 mmHg (75-85); Platelet Count Result 283 K/mm3 (150-420); Red Blood Count 3.09 M/mm3 (4.70-6.10); Red Cell Distribution Width 13.5 % (11.6-14.4); White Blood Count 16.4 K/mm3 (4.8-10.8); pH ABG 7.34 (7.35-7.45)
[2024-07-15 10:47] LABS: Device BIPAP; Modified Allen's Test Pass; Site Drawn RIGHT RADIAL
[2024-07-15 10:48] LABS: Expiratory Pressure 7 cmH2O
[2024-07-15 10:49] LABS: Inspiratory Pressure 14 cmH2O
[2024-07-15 10:50] LABS: Total Hemoglobin 10.7 g/dL (12.0-18.0)
[2024-07-15 11:02] LABS: Alanine Aminotransferase 25 U/L (16-63); Albumin Level 3.1 g/dL (3.4-5.0); Alkaline Phosphatase 92 U/L (46-116); Anion Gap 14 mmol/L (4-12); Aspartate Amino Transferase 26 U/L (15-37); Bilirubin,Total 0.7 mg/dL (0.00-1.00); Blood Urea Nitrogen 59 mg/dL (7-18); Calcium 8.9 mg/dL (8.5-10.1); Carbon Dioxide 23 mmol/L (21-32); Chloride 104 mmol/L (98-108); Estimated CRCL calculation 18 ml/min; Estimated Glomerular Filt Rate 19; NT Pro B Type Natriuretic Pept 5509 pg/mL (0-125); Osmolality Calculated 325 mOsm/kg (285-295); Potassium 3.7 mmol/L (3.5-5.1); Sodium 141 mmol/L (136-145)
[2024-07-15 11:03] LABS: D Dimer 3.81 mg/L (0.19-0.50); Glucose 401 mg/dL (70-99)
--- NOTE | 2024-07-15 11:30 | PC.NURSE ---
Kasandra with lab calls with critical results: DDimer 3.81, Troponin 1208, Glucose 401.
[2024-07-15 11:33] LABS: Influenza A QL RT-PCR Negative (Negative); Influenza B QL RT-PCR Negative (Negative); RSV RNA, RT-PCR Negative (Negative); SARS-CoV-2 RNA PCR Negative (Negative)
[2024-07-15] MEDS: FUROSEMIDE INJ 40 MG/4 ML VIAL IV PUSH ×2 (11:56→13:46)
[2024-07-15 13:12] LABS: Troponin I 1499.7 ng/L (0.00-60.4)
[2024-07-15 13:37] LABS: INR 1.1; Partial Thromboplastin Time 28.8 Sec (23.9-30.70); Prothrombin Time 11.6 Seconds (9.50-12.1)
[2024-07-15] MEDS: HEPARIN SODIUM 5,000 UNITS/ML VIAL 4000 UNITS IV PUSH (13:46)
[2024-07-15] MEDS: HEPARIN SOD/D5W 100 UNITS/ML 25,000 UNITS/250 ML BAG 9 UNITS IV CONT (13:47)
--- NOTE | 2024-07-15 14:03 | PC.NURSE ---
Pt accepted at [facility] pending bed availability.
--- NOTE | 2024-07-15 14:31 | PC.NURSE ---
pt continues to rest on cot in room with at bedside. Pt oxygenating well on bipap. updated on plans to transfer pt to [facility] when bed is available. Continue cardiac and SpO2 monitoring.
[2024-07-15 16:13] LABS: Glucose Point of Care > 450 mg/dl (65-105)
[2024-07-15] MEDS: SODIUM CHLORIDE 0.9% IV 1,000 ML 200 ML IV CONT (16:21)
[2024-07-15] MEDS: INSULIN HUMAN REGULAR (*BKC) 1,000 UNITS/10 ML VIAL 10 UNITS IV PUSH ×2 (16:21→18:01)
--- NOTE | 2024-07-15 17:30 | PC.NURSE ---
[facility] calls to inform that the received the call for transport and should be here in 30 minutes to pick patient i
--- NOTE | 2024-07-15 17:39 | PC.NURSE ---
[facility] calls to inform they have been paged out on a 911 call and are unable to guarantee what time they will be available to cloth picker pt.
--- NOTE | 2024-07-15 17:50 | PC.NURSE ---
[facility] has been called for transport. Will notify staff if unable to accommodate BiPap.
[2024-07-15 17:57] LABS: Glucose Point of Care > 450 mg/dl (65-105)
--- NOTE | 2024-07-15 18:05 | PC.NURSE ---
[facility] repaged to transport pt
--- NOTE | 2024-07-15 18:05 | PC.NURSE ---
[facility] repaged for transport
--- NOTE | 2024-07-15 19:01 | PC.NURSE ---
[facility] arrives to transport pt to [facility]
== END 2024-07-15 19:25 | disposition short-term general hospital (02) ==
PROVIDERS: Emergency Provider Emergency Medicine; PCP Internal Medicine
DX: I21.4 Non-ST elevation (NSTEMI) myocardial infarction (principal); J18.9 Pneumonia, unspecified organism; D64.9 Anemia, unspecified; I50.9 Heart failure, unspecified; N17.9 Acute kidney failure, unspecified; R79.89 Other specified abnormal findings of blood chemistry; E11.65 Type 2 diabetes mellitus with hyperglycemia; Z20.822 Contact with and (suspected) exposure to COVID-19
CPT/HCPCS: 36415; 36600; 71045; 80053; 82805; 82948; 83880; 84484; 85018; 85025; 85380; 85610; 85730; 87637; 93005; 96365; 96366; 96375; 96376; 99291; J1644; J1815; J1940; J7030

== ENCOUNTER 2024-08-23 12:44 | Inpatient (IN) | payer MEDICARE, SELFPAY ==
[2024-08-23] VITALS (23 sets, daily range): BP systolic 126–195; BP diastolic 44–153; PULSE 57–93; RESP 17–29; TEMP 36.6–38.8; O2SAT 84–99; BMI 24.7
--- NOTE | ~2024-08-23 | XR_ITS ---
XR chest 1V portable Ordering provider: Duane Jesus MD History: 73 years Male with . SOB, cough, Fever, URI symptoms w/ AMS . Comparison: July 15, 2024 FINDINGS: MEDIASTINUM: The cardiac silhouette is slightly enlarged. Congestive chely. LUNGS: No effusions or pneumothorax. Bilateral perihilar and lower lobe opacification suggestive of pneumonia. Interstitial changes are se en which may indicate underlying edema. Clinical correlation advised. OTHER: No free air under the diaphragm. IMPRESSION: Bilateral pneumonia. Underlying pulmonary edema cannot be excluded. Clinical correlation advised. Reviewed, dictated and finalized at location A. HINOLARYNGOLOGIST IMPRESSION: Bilateral pneumonia. Underlying pulmonary edema cannot be excluded. Clinical co rrelation advised.
--- NOTE | ~2024-08-23 | CT_ITS ---
CT brain wo con Ordering provider: Duane Jesus MD History: 73 years Male with . AMS w/ URS's fever- pt will verbal resp but not follow com . Comparison: July 06, 2024 and was immediately Technique: CT of the head without contrast. Radiation reduction technique utilized. The dose-length p roduct was 605.33 mGy-cm. FINDINGS: BRAIN PARENCHYMA AND CSF SPACES: Mild leukoaraiosis and diffuse cortical atrophy. Mild atheromatous d isease. No midline shift, mass effect or hemorrhage. The brain parenchyma and CSF spaces are otherwi se normal. VISUALIZED PARANASAL SINUSES: Bilateral ethmoid sinus disease. Bilateral sphenoid sinus disease. Left maxillary sinus disease. Postoperative changes seen medially in the maxillary sinuses. MASTOIDS: Well aerated. BONES: The bones appear intact. SOFT TISSUES: Visualized nasopharynx is normal. Superficial soft tissues are normal. IMPRESSION: No acute intracranial findings. Reviewed, dictated and finalized at location A. MAN CONDUCTOR
--- NOTE | 2024-08-23 12:47 | ED_ITS ---
HPI - URI/Sore Throat General Chief Complaint: Fever Stated Complaint: cough and fever Time Seen by Provider: 08/23/24 12:45 Source: patient Mode of arrival: ambulatory Limitations: no limitations History of Present Illness HPI Narrative: 73-year-old male with a history of hypertension, diabetes mellitus, gout,seizure disorder, dyslipidemia, history of GI bleeding, anemia, DONNY, CAD status post stent,CHF with an EF of 40% was recently admitted for pneumonia on 07/13/2024. He was seen in this ED on 07/15 2024 for CHF exacerbation, anemia and acute on chronic renal failure. He was transferred to [facility] where he had placement of cardiac stent. He presents to the ED with -- fever with a T-max of 101.9? -- cough -- confusion. Patient is sluggish in slow to respond. Patient patient is very hard of hearing. He left his hearing aids at home. MD elicited complaint: fever and cough Pertinent past history: pneumonia Onset (ago): day(s) ( One day) Consistency: constant Severity: severe Description of mucous: clear Able to tolerate fluids by mouth: Yes Exacerbating factors: nothing Relieving factors: nothing Associated symptoms: fever, chills, cough and shortness of breath Treatments prior to arrival: none Related Data Home Medications ?Medication ?Instructions ?Recorded ?Confirmed ?Last Taken ?Type Adult Multivitamin with Iron 1 tab-cap PO DAILY 06/09/22 06/09/22 Unknown History aspirin 81 mg tablet,delayed 81 mg PO DAILY 06/09/22 06/09/22 Unknown History release atorvastatin 80 mg BYMOUTH 06/09/22 06/09/22 Unknown History carvedilol 12.5 mg tablet (Coreg) 25 mg PO BID 06/09/22 06/09/22 Unknown History ferrous sulfate 325 mg (65 mg 325 mg PO DAILY 06/09/22 06/09/22 Unknown History iron) tablet (Feosol) fluticasone 250 mcg-salmeterol 50 1 inh inhalation Q12H 06/09/22 06/09/22 Unknown History mcg/dose blistr powdr for inhalation (Wixela Inhub) hydralazine 50 mg tablet 100 mg PO Q6H 06/09/22 06/09/22 Unknown History pantoprazole 40 mg tablet,delayed 40 mg PO BID 06/09/22 06/09/22 Unknown History release (Protonix) sertraline 100 mg tablet (Zoloft) 100 mg PO DAILY 06/09/22 06/09/22 Unknown History alfuzosin 10 mg tablet,extended 10 mg PO DAILY 08/23/24 Unknown History release 24 hr allopurinol 100 mg tablet 100 mg PO DAILY 08/23/24 Unknown History cetirizine 10 mg capsule (All Day 10 mg PO DAILY 08/23/24 Unknown History Allergy (cetirizine)) clopidogrel 75 mg tablet (Plavix) 75 mg PO DAILY 08/23/24 Unknown History fiber 1 tablet PO BID 08/23/24 Unknown History fluticasone 250 mcg-salmeterol 50 1 inh inhalation Q12H 08/23/24 Unknown History mcg/dose blistr powdr for inhalation (Advair Diskus) furosemide 80 mg tablet 80 mg PO DAILY 08/23/24 Unknown History gabapentin 300 mg capsule 300 mg PO TID 08/23/24 Unknown History insulin aspar prot-insulin aspart 30 unit subcut BID 08/23/24 Unknown History 100 unit/mL (70-30) subcutaneous pen isosorbide mononitrate 30 mg 30 mg PO DAILY 08/23/24 Unknown History tablet,extended release 24 hr levetiracetam 750 mg tablet 750 mg PO Q12H 08/23/24 Unknown History melatonin 10 mg capsule 10 mg PO HS 08/23/24 Unknown History Allergies Allergy/AdvReac Type Severity Reaction Status Date / Time cefaclor (From [facility]) Allergy Mild Rash Verified 08/23/24 12:56 Cephalosporins Allergy Unknown Verified 08/23/24 12:56 pioglitazone Allergy Unknown Verified 08/23/24 12:56 Review of Systems 2 Review of Systems: All systems reviewed & are unremarkable except as noted in HPI and below Constitutional: Constitutional: Reports as per HPI and Reports no additional constitutional complaints Eyes: Eyes: Reports as per HPI and Reports no additional eye complaints ENT: Reports system reviewed and no additional complaints, except as documented and Reports as per HPI Cardiovascular: Cardiovascular: Reports as per HPI and Reports no additional cardiovascular complaints Respiratory: Respiratory: Reports as per HPI, Reports no additional respiratory complaints, Reports cough and Reports dyspnea Gastrointestinal: Gastrointestinal: Reports as per HPI and Reports no additional gastrointestinal complaints Genitourinary: Genitourinary: Reports no additional male genitourinary complaints and Reports as per HPI Musculoskeletal: Musculoskeletal: Reports no additional musculoskeletal complaints and Reports as per HPI Integumentary/Breasts: Skin/Breast: Reports system reviewed and no additional complaints, except as docu and Reports as per HPI Neurologic: Reports system reviewed and no additional complaints, except as documented and Reports as per HPI Comments: patient is drowsy and sluggish. He responds to verbal commands. Psychiatric: Psychiatric: Reports no additional psychiatric complaints and Reports as per HPI Endocrine: Endocrine: Reports no additional endocrine complaints and Reports as per HPI Hematologic/Lymphatic: Hematologic/Lymphatic: Reports no additional hematologic/lymphatic complaints and Reports as per HPI Allergic/Immunologic: Allergic/Immunologic: Reports no additional allergic/immunologic complaints and Reports as per HPI PMFSH Past Medical History Medical History (Updated 08/23/24 @ 15:09 by Duane Jesus MD) Gout Dyslipidemia CAD (coronary artery disease) Anemia Congestive heart failure Diabetes mellitus type 2, insulin dependent Surgical History Surgical History (Updated 08/23/24 @ 13:08 by Duane Jesus MD) H/O heart artery stent Social History Social History Smoking status: Never smoker Second hand tobacco smoke exposure: No Alcohol intake: never Substance use: never Substance use type: does not use Lack of Transportation: No Lack of Food: Never True Current Housing: I Have Housing Concerned About Future Housing: No Difficulty Paying Gas/Electric Bills: No Difficulty Paying for Meds: No Currently Unemployed: No Education: High School Diploma/GED Difficulty w/ Childcare or Family Care: No Spiritual care concerns: No Exam 2 Narrative: blood pressure 160/103. Oxygen saturation of 90% on air. Const: General: confusion Orientation/consciousness: patient oriented x3 ( Patient is confused.) Limitations: altered mental status HENMT: Head: normal to inspection Ears: external ears normal F mina/Nose/Sinus: Normal external nose present Face and sinus: normal facial exam Mouth: Yes Normal oral and palatal mucosa present Throat: posterior oropharynx normal Eyes: Conjunctivae: conjunctivae normal Pupils: Equal, round and reactive pupils present EOM: EOMs intact bilaterally Direct Ophthalmoscopy: no photophobia Neck: Neck: normal visual inspection, no lymphadenopathy and no meningeal signs Chest: Chest palpation & inspection: normal inspection of the chest Resp: Auscultation: rales, rhonchi and diminished lung sounds Cardio: Rate: regular rate Rhythm: regular rhythm GI: GI Palp: Yes Soft to palpation Auscultation: normal bowel sounds O ther: No tenderness/ rigidity / rebound. : General: Yes no CVA tenderness Back/Spine/Pelvis: Back: no CVA tenderness Skin: General skin exam: normal color Rashes: no rashes Wounds: no wounds Neuro: General: patient oriented x3, moves all extremities, no meningeal signs, no focal motor deficits and CN's II-XI intact bilaterally Cranial nerves: Yes Nystagmus not present Extrem: General: normal to inspection and no clubbing, cyanosis or edema Psych: Mental Status: mental status grossly normal Course Course Emergency Course: Febrile illness upper respiratory symptoms shortness of breath with bilateral lung infiltrates-- Pulmonary edema/ pneumonia/ volume overload( patient is febrile but has a normal white cell count and a normal lactate.) influenza a CAD/CHF with an EF of 40%-- normal troponin. ProBNP is 3 332. Patient received 40 mg of IV Lasix. CKD with a BUN/creatinine of 35/1.64 hyperglycemia with a blood sugar of 321 Vital Signs Vital signs: Vital Signs Temperature 38.8 C H 08/23/24 12:46 Pulse Rate 91 08/23/24 12:46 Respiratory Rate 20 08/23/24 12:46 Blood Pressure 166/103 H 08/23/24 12:46 Pulse Oximetry 90 08/23/24 12:46 Oxygen Delivery Room Air 08/23/24 12:46 Temperature 38.8 C H 08/23/24 12:46 Pulse Rate 93 08/23/24 13:45 Respiratory Rate 27 H 08/23/24 13:45 Blood Pressure 195/94 H 08/23/24 13:35 Pulse Oximetry 94 08/23/24 13:45 Oxygen Delivery Nasal Cannula 08/23/24 13:35 Oxygen Flow Rate 2 08/23/24 13:35 MDM - URI/Sore Throat MDM Narrative Medical decision making narrative: Influenza a CAD/CHF exacerbation bilateral lung infiltrates /pneumonia CKD hyperglycemia with type 2 diabetes mellitus Differential Diagnosis Differential diagnosis: Likely upper respiratory infection, viral infection and bronchitis Medical Records Attestation: I reviewed the patient's medical records. Lab Data Attestation: I reviewed the patient's lab results. 08/23/24 13:30 08/23/24 13:30 Labs: Lab Results 08/23/24 Range/Units 13:30 WBC 9.3 (4.8-10.8) K/mm3 RBC 3.27 L (4.70-6.10) M/mm3 Hgb 9.5 L (12.4-15.3) g/dL Hct 30.4 L (37.0-46.0) % MCV 93.0 (78.0-102.0) fL MCH 29.1 (27.0-31.0) pg MCHC 31.3 L (32-36) g/dL RDW 14.2 (11.6-14.4) % Plt Count 122 L (150-420) K/mm3 MPV 12.5 H (8.7-11.0) fl Immature Gran % (Auto) 0.5 H (0.0-0.0) % Neut % (Auto) 84.9 H (50.0-70.0) % Lymph % (Auto) 4.1 L (18.0-42.0) % [place] % (Auto) 8.1 (2.0-11.0) % Eos % (Auto) 2.0 (1.0-6.0) % Baso % (Auto) 0.4 (0.0-1.0) % Lymph # (Auto) 0.38 L (1.10-4.50) K/mm3 [place] # (Auto) 0.75 (0.10-0.90) K/mm3 Eos # (Auto) 0.19 (0.02-0.50) K/mm3 Baso # (Auto) 0.04 (0.00-0.10) K/mm3 Abs Immat Gran (auto) 0.05 H (0.00-0.00) K/mm3 Absolute Neuts (auto) 7.86 H (1.70-7.20) K/mm3 Absolute Nucleated RBC 0.00 (0.00-0.00) K/mm3 Nucleated RBC % 0.0 (0-0.0) % Sodium 140 (136-145) mmol/L Potassium 4.0 (3.5-5.1) mmol/L Chloride 102 (98-108) mmol/L Carbon Dioxide 26 (21-32) mmol/L Anion Gap 12 (4-12) mmol/L BUN 35 H (7-18) mg/dL Creatinine 1.64 H (0.70-1.30) mg/dL Estim Creat Clear Calc 35 ml/min Estimated GFR 42 L (59 - ) Glucose 321 H (70-99) mg/dL Calculated Osmolality 310 H (285-295) mOsm/kg Lactic Acid 1.3 (0.4-2.0) mmol/L Calcium 9.0 (8.5-10.1) mg/dL Magnesium 1.5 L (1.8-2.4) mg/dL Total Bilirubin 0.5 (0.00-1.00) mg/dL AST 18 (15-37) U/L ALT 25 (16-63) U/L Alkaline Phosphatase 106 (46-116) U/L Troponin I 45.0 (0.00-60.4) ng/L NT-Pro-B Natriuret Pep 3332 H (0-125) pg/mL Total Protein 6.9 (6.4-8.2) g/dL Albumin 3.4 (3.4-5.0) g/dL Influenza A (RT-PCR) Positive A (Negative) Influenza B (RT-PCR) Negative (Negative) RSV (RT-PCR) Negative (Negative) SARS-CoV-2 RNA (RT-PCR) Negative (Negative) ABG Data ABG results: 08/23/24 13:36 Puncture Site Left radial ABG pH 7.44 ABG pCO2 40.1 ABG pO2 48.3 L ABG HCO3 26.5 ABG O2 Saturation 84.3 L ABG Base Excess 2.2 H Oxyhemoglobin 83.5 L O2 Delivery Device Nasal cannula O2 Liters/Min 2.0 ECG Data EKG #1: ECG completion date: 08/23/24 ECG completion time: 13:26 Interpretation: normal sinus rhythm. 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 This EKG is unchanged from an EKG done on 07/15/2024. Discharge Plan Discharge Clinical Impression: Influenza A Respiratory failure with hypoxia Qualifiers: Chronicity: acute Qualified Code(s): J96.01 - Acute respiratory failure with hypoxia CKD (chronic kidney disease) stage 3, GFR 30-59 ml/min Qualifiers: Chronic kidney disease stage 3 subtype: stage 3b (GFR 30-44) Qualified Code(s): N18.32 - Chronic kidney disease, stage 3b CHF exacerbation Qualifiers: Heart failure type: systolic Qualified Code(s): I50.23 - Acute on chronic systolic (congestive) heart failure Patient Disposition: Acute Care [facility] Condition: Stable Patient Language: Citizen Of [place] Prescriptions: No Action atorvastatin 80 mg BYMOUTH HS fluticasone propion-salmeterol [Wixela Inhub] 250-50 mcg/dose Blister With Device 1 inh INHALATION Q12H carvedilol [Coreg] 12.5 mg Tablet 25 mg PO BID Rx Instructions: must administer with a meal/food aspirin 81 mg Tablet,Delayed Release (Dr/Ec) 81 mg PO DAILY pantoprazole [Protonix] 40 mg Tablet,Delayed Release (Dr/Ec) 40 mg PO BID ferrous sulfate [Feosol] 325 mg (65 mg iron) Tablet 325 mg PO DAILY hydralazine 50 mg Tablet 100 mg PO Q6H Rx Instructions: hold if sbp<120 sertraline [Zoloft] 100 mg Tablet 100 mg PO DAILY Adult Multivitamin with Iron 1 tab-cap PO DAILY allopurinol 100 mg tablet 100 mg PO DAILY alfuzosin 10 mg tablet extended release 24 hr 10 mg PO DAILY furosemide 80 mg tablet 80 mg PO DAILY insulin asp prt-insulin aspart 100 unit/mL (70-30) insulin pen 30 unit SUBCUT BID gabapentin 300 mg capsule 300 mg PO TID levetiracetam 750 mg tablet 750 mg PO Q12H fluticasone propion-salmeterol [Advair Diskus] 250-50 mcg/dose blister with device 1 inh inhalation Q12H All Day Allergy (cetirizine) 10 mg capsule 10 mg PO DAILY clopidogrel [Plavix] 75 mg tablet 75 mg PO DAILY isosorbide mononitrate 30 mg tablet extended release 24 hr 30 mg PO DAILY melatonin 10 mg capsule 10 mg PO HS fiber Tablet,Chewable 1 tablet PO BID Follow-up/Referrals: Adrienne Marin MD [Primary Care Provider] - Time of Disposition: 15:09
--- OUTSIDE RECORDS SUMMARY | 2024-08-23 12:47 | XMS_ITS | Encounter Summary ---
Author Organization [facility] Address [facility] [place] [address] Care Team Providers Care Ict Support Engineer Name Role Phone Adrian Lee MD Primary Care Provider [phone] Gladys Sanchez MD Unavailable [phone] Adrienne Marin MD Primary Care Provider Encounter Details Date Type Department Care Team (Late st Contact Info) Description 06/20/2022 Hospital Follow-up Call [facility] [address] [place] [address] Asia Weiner, RN Social History Tobacco Use Types Packs/Day Years Used Date Smoking Tobacco: Never Smokeless Tobacco: Never Comments:non-smoker Alcohol Use Standard Drinks/Week Comments No 0 (1 standard drink = 0.6 oz pur e alcohol) AUDIT-C Answer Date Recorded Frequency of Alcohol Consumption Never 07/02/2019 Average Number of Drinks Not on file 020 Frequency of Binge Drinking Not on file 01/2020 PHQ-2 Answer Date Recorded PHQ-2 Score - If the patient scores above 3, please move on to questions 3-9 0 03/30/2022 Sex and Gender Information Value Date Recorded Sex Assigned at Male 07/08/2024 7:30 AM RECEIVING COORDINATOR Legal Sex Male 8:56 PM CDT Gender Identity Male 07/08/2024 7:30 AM RECEIVING COORDINATOR Sexual Orientation Straight 07/08/2024 7: 30 AM RECEIVING COORDINATOR COVID-19 Exposure Response Date Recorded In the last 10 days, have yo u been in contact with someone who was confirmed or suspected to have Coronavirus/COVID-19? No / Unsure 06/14/2022 6:51 PM RECEIVING COORDINATOR documented as of this encounter Functional Status * RETIRED Are you deaf or do you have serious difficulty hearing Answer Date of Assessment Author Status Yes 06/14/2022 7:00 PM RECEIVING COORDINATOR Activ e * RETIRED Are you blind or do you have serious difficulty seeing, even when wearing glasses? Answer Date of Assessment Author Status No 06/14/2022 7:00 PM RECEIVING COORDINATOR Activ e * Do you have serious difficulty walking or climbing stairs? Answer Date of Assessment Author Status No 06/14/2022 7:00 PM RECEIVING COORDINATOR Cathy Giles RN Active * Do you have difficulty dressing or bathing? Answer Date of Assessment Author Status No 06/14/2022 7:00 PM RECEIVING COORDINATOR Cathy Giles RN Active * Because of a physical, mental, or emotional condition, do you have difficulty doing errands alone such as visiting a doctor's office or shopping? Answer Date of Assessment Author Status No 06/14/2022 7:00 PM RECEIVING COORDINATOR Cathy Giles RN Active documented as of this encounter Mental Status * Because of a physical, mental, or emotional condition, do you have serious difficulty concentrating, remembering, or making decisions? Answer Entry Date Author Status No 06/14/2022 7:00 PM RECEIVING COORDINATOR Cathy Giles RN Active documented in this encounter Plan of Treatment Upcoming Encounters Date Type Department Care Team (Late st Contact Info) Description 08/25/2024 1:30 PM RECEIVING COORDINATOR [facility]ment [facility] [place] [address] Adrienne Marin MD [address] [place] [id number] 08/27/2024 1:30 PM RECEIVING COORDINATOR Appointment [facility] [place] [address] Adrienne Marin MD [address] [place] [phone] 08/29/2024 1:30 PM RECEIVING COORDINATOR Appointment [facility] [place] [address] Adrienne Marin MD [address] [place] [phone] 09/01/2024 11:30 AM CDT [facility] [address] [place] [address] Anders Palacio, COURTNEY [facility] [address] [place] [address] 09/01/2024 1:30 PM CDT Appointment [facility] [place] [address] Adrienne Marin MD [address] [place] [phone] 09/03/2024 1:30 PM CDT Appointment [facility] [place] [address] Adrienne Marin MD [address] [place] [phone] 09/05/2024 1:30 PM CDT Appointment [facility] [place] [address] Adrienne Marin MD [address] [place] [phone] 09/08/2024 1:30 PM CDT Appointment [facility] [place] [address] Adrienne Marin MD [address] [place] [phone] 09/10/2024 1:30 PM CDT Appointment [facility] [address] [place] [address] Adrienne Marin MD [address] [place] [phone] 09/12/2024 1:30 PM CDT Appointment [facility] [place] [address] Adrienne Marin MD [address] [place] [phone] 09/15/2024 1:30 PM CDT Appointment [facility] [place] [address] Adrienne Marin MD [address] [place] [phone] 09/17/2024 1:30 PM CDT Appointment [facility] [place] [address] Adrienne Marin MD [address] [place] [phone] 09/19/2024 1:30 PM CDT Appointment [facility] [place] [address] Adrienne Marin MD [address] [place] [phone] 09/22/2024 1:30 PM CDT Appointment [facility] [place] [address] Adrienne Marin MD [address] [place] [phone] 09/24/2024 1:30 PM CDT Appointment [facility] [address] [place] [address] Adrienne Marin MD [address] [place] [phone] 09/26/2024 1:30 PM CDT Appointment [facility] [place] [address] Adrienne Marin MD [address] [place] [phone] 09/29/2024 1:30 PM CDT Appointment [facility] [place] [address] Adrienne Marin MD [address] [place] [phone] 10/01/2024 1:30 PM CDT Appointment [facility] [place] [address] Adrienne Marin MD [address] [place] [phone] 10/03/2024 1:30 PM CDT Appointment [facility] [place] [address] Adrienne Marin MD [address] [place] [phone] 10/06/2024 1:30 PM CDT Appointment [facility] [place] [address] Adrienne Marin MD [address] [place] [phone] 10/08/2024 1:30 PM CDT Appointment [facility] [address] [place] [place] [address] Adrienne Marin MD [address] [place] [phone] 10/10/2024 1:30 PM CDT Appointment [facility] [address] [place] [address] Adrienne Marin MD [address] [place] [phone] 10/13/2024 1:30 PM CDT Appointment [facility] [place] [address] Adrienne Marin MD [address] [place] [phone] 10/15/2024 1:30 PM CDT Appointment [facility] [place] [address] Adrienne Marin MD [address] [place] [phone] 10/17/2024 1:30 PM CDT Appointment [facility] [place] [address] Adrienne Marin MD [address] [place] [phone] 10/20/2024 1:30 PM CDT Appointment [facility] [place] [address] Adrienne Marin MD [address] [place] [phone] 10/22/2024 1:30 PM CDT Appointment [facility] [address] [place] [address] Adrienne Marin MD [address] [place] [phone] 10/24/2024 1:30 PM CDT Appointment [facility] [address] [place] [address] Adrienne Marin MD [address] [place] [phone] 10/27/2024 1:30 PM CDT Appointment [facility] [place] [address] Adrienne Marin MD [address] [place] [phone] 10/29/2024 1:30 PM CDT Appointment [facility] [place] [address] Adrienne Marin MD [address] [place] [phone] 10/31/2024 1:30 PM CDT Appointment [facility] [place] [address] Adrienne Marin MD [address] [place] [phone] 11/03/2024 1:30 PM CDT Appointment [facility] [address] [place] [address] Adrienne Marin MD [address] [place] [phone] 11/05/2024 1:30 PM CDT Appointment [facility] [place] [address] Adrienne Marin MD [address] [place] [phone] 11/07/2024 1:30 PM CDT Appointment [facility] [place] [address] Adrienne Marin MD [address] [place] [phone] 11/07/2024 2:40 PM CDT Office Visit [facility] Diabetes [facility] Endocrinology - [address] [phone] Hannah Garrison MD [address] [place] [address] 11/10/2024 1:30 PM CDT Appointment [facility] [place] [address] Adrienne Marin MD [address] [place] [phone] 11/12/2024 1:30 PM CDT Appointment [facility] [place] [address] Adrienne Marin MD [address] [place] [phone] 11/14/2024 1:30 PM CDT Appointment [facility] [address] [place] [address] [address] [place] [address] Adrienne Marin MD [address] [place] [phone] 11/19/2024 1:30 PM CDT Appointment [facility] [address] [place], [place] [address] [address] Adrienne Marin MD [address] [place] [phone] 11/21/2024 1:30 PM CDT Appointment [facility] [address] [place], [place] [address] [address] Adrienne Marin MD [address] [place] [phone] 11/24/2024 1:30 PM CDT Appointment [facility] [address] [place], [place] [address] [address] Adrienne Marin MD [address] [place] [phone] 11/26/2024 1:30 PM CDT Appointment [facility] [address] [place], [place] [address] [address] Adrienne Marin MD [address] [place] [phone] documented as of this encounter Goals Goal Patient Goal Type Associated Problems Recent Progress Patient-Stated? Author Patient will return to prior living situation and remain independent in ADLs upon discharge from hospital General No Diana Todd mechanical piping designer - family caregiver with be involved in care transitions and discharge planning General No Nicole Cole RN Safety Patient/family will have appropriate support at home upon discharge General No Ayleen Garcia, NATURAL RESOURCE SPECIALIST documented as of this encounter Visit Diagnoses Not on filedocumented in this encounter Additional Health Concerns Infection Onset Date Last Indicated Resolved Time Influenza - Seasonal 05/23/2022 05/23/2022 023 12:34 AM RECEIVING COORDINATOR COVID-19 Rule Out 05/13/2023 05/13/2023 05/13/2023 4:14 PM RECEIVING COORDINATOR COVID-19 Rule Out 05/13/2023 05/13/2023 05/14/2023 1:35 AM RECEIVING COORDINATOR COVID-19 Rule Out 07/08/2023 07/08/2023 07/08/2023 5:34 PM RECEIVING COORDINATOR COVID-19 Rule Out 07/07/2024 07/07/2024 07/07/2024 7:39 AM RECEIVING COORDINATOR Assessment Noted Time PHQ-9 Depression Total Score: 0 11/19/19 3:11 PM CDT documented as of this encounter Care Teams Ict Support Engineer Relationship Specialty [place] [address] [place] [address] [place] [phone] PCP - General FAMILY PRACTICE 04/22/18 05/08/24 Adrienne Marin MD [address] [place] [address] PCP - General INTERNAL MEDICINE 05/09/24 Gladys Sanchez MD [address] [place] [id number] [place] [employer] Mechanic CARDIOVASCULAR DISEASE 05/28/19 documented as of this encounter
--- OUTSIDE RECORDS SUMMARY | 2024-08-23 12:47 | XMS_ITS | Encounter Summary ---
Author Organization [facility] Address [facility] [place] [address] Care Team Providers Care Customer Advocacy Manager Name Role Phone Adrian Lee MD Primary Care Provider [phone] Gladys Sanchez MD Unavailable [phone] Adrienne Marin MD Primary Care Provider [phone] Encounter Details Date Type Department Care Team (Late st Contact Info) Description 07/25/2022 Abstract [facility] BUSINESS OFFICE [address] [place] [id number] Abstract, Doc Cikda Social History Tobacco Use Types Packs/Day Years Used Date Smoking Tobacco: Never Smokeless Tobacco: Never Comments:non-smoker Alcohol Use Standard Drinks/Week Comments No 0 (1 standard drink = 0.6 oz pur e alcohol) AUDIT-C Answer Date Recorded Frequency of Alcohol Consumption Never 07/02/2019 Average Number of Drinks Not on file 020 Frequency of Binge Drinking Not on file 01/2020 PHQ-2 Answer Date Recorded Patient Health Questionnaire-2 Score 0 07/17/2022 Sex and Gender Information Value Date Recorded Sex Assigned at Male 07/08/2024 7:30 AM DIRECTOR OF BUSINESS SERVICES Legal Sex Male 8:56 PM CDT Gender Identity Male 07/08/2024 7:30 AM DIRECTOR OF BUSINESS SERVICES Sexual Orientation Straight 07/08/2024 7: 30 AM DIRECTOR OF BUSINESS SERVICES COVID-19 Exposure Response Date Recorded In the last 10 days, have yo u been in contact with someone who was confirmed or suspected to have Coronavirus/COVID-19? No / Unsure 07/28/2022 2:26 PM DIRECTOR OF BUSINESS SERVICES documented as of this encounter Functional Status * RETIRED Are you deaf or do you have serious difficulty hearing Answer Date of Assessment Author Status Yes 06/14/2022 7:00 PM DIRECTOR OF BUSINESS SERVICES Activ e * RETIRED Are you blind or do you have serious difficulty seeing, even when wearing glasses? Answer Date of Assessment Author Status No 06/14/2022 7:00 PM DIRECTOR OF BUSINESS SERVICES Activ e * Do you have serious difficulty walking or climbing stairs? Answer Date of Assessment Author Status No 06/14/2022 7:00 PM DIRECTOR OF BUSINESS SERVICES Cathy Giles RN Active * Do you have difficulty dressing or bathing? Answer Date of Assessment Author Status No 06/14/2022 7:00 PM DIRECTOR OF BUSINESS SERVICES Cathy Giles RN Active * Because of a physical, mental, or emotional condition, do you have difficulty doing errands alone such as visiting a doctor's office or shopping? Answer Date of Assessment Author Status No 06/14/2022 7:00 PM DIRECTOR OF BUSINESS SERVICES Cathy Giles RN Active documented as of this encounter Mental Status * Because of a physical, mental, or emotional condition, do you have serious difficulty concentrating, remembering, or making decisions? Answer Entry Date Author Status No 06/14/2022 7:00 PM DIRECTOR OF BUSINESS SERVICES Cathy Giles RN Active documented in this encounter Plan of Treatment Upcoming Encounters Date Type Department Care Team (Late st Contact Info) Description 08/25/2024 1:30 PM DIRECTOR OF BUSINESS SERVICES Appointment [facility] [place] [address] Adrienne Marin MD [address] [place] [phone] 08/27/2024 1:30 PM DIRECTOR OF BUSINESS SERVICES Appointment [facility] [place] [address] Adrienne Marin MD [address] [place] [phone] 08/29/2024 1:30 PM DIRECTOR OF BUSINESS SERVICES Appointment [facility] [place] [address] Adrienne Marin MD [address] [place] [phone] 09/01/2024 11:30 AM CDT Office Visit [facility] [place] [facility] [address] [place] [address] Anders Palacio, COURTNEY [facility] [address] [place] [address] 09/01/2024 1:30 PM CDT Appointment [facility] [place] [address] Adrienne Marin MD [address] [place] [id number] 09/03/2024 1:30 PM CDT [facility] [place] [place] [address] Adrienne Marin MD [address] [place] [id number] 09/05/2024 1:30 PM CDT Appointment [facility] [place] [address] Adrienne Marin MD [address] [place] [phone] 09/08/2024 1:30 PM CDT Appointment [facility] [place] [address] Adrienne Marin MD [address] [place] [phone] 09/10/2024 1:30 PM CDT Appointment [facility] [place] [address] Adrienne Marin MD [address] [place] [phone] 09/12/2024 1:30 PM CDT Appointment [facility] [facility] [place] [address] Adrienne Marin MD [address] [place] [phone] 09/15/2024 1:30 PM CDT Appointment [facility] [address] [place] [address] [place] [address] Adrienne Marin MD [address] [place] [phone] 09/17/2024 1:30 PM CDT Appointment [facility] [address] [place], [place] [address] [address] Adrienne Marin MD [address] [place] [phone] 09/19/2024 1:30 PM CDT Appointment [facility] [place] [address] Adrienne Marin MD [address] [place] [phone] 09/22/2024 1:30 PM CDT Appointment [facility] [address] [place], [place] [address] [address] Adrienne Marin MD [address] [place] [phone] 09/24/2024 1:30 PM CDT Appointment [facility] [address] [address] Adrienne Marin MD [address] [place] [phone] 09/26/2024 1:30 PM CDT Appointment [facility] [address] Adrienne Marin MD [address] [place] [phone] 09/29/2024 1:30 PM CDT Appointment [facility] [place] [address] Adrienne Marin MD [address] [place] [phone] 10/01/2024 1:30 PM CDT Appointment [facility] [place] [address] Adrienne Marin MD [address] [place] [phone] 10/03/2024 1:30 PM CDT Appointment [facility] [place] [address] Adrienne Marin MD [address] [place] [phone] 10/06/2024 1:30 PM CDT Appointment [facility] [place] [address] Adrienne Marin MD [address] [place] [phone] 10/08/2024 1:30 PM CDT Appointment [facility] [address] [place] [address] Adrienne Marin MD [address] [place] [phone] 10/10/2024 1:30 PM CDT Appointment [facility] [place] [address] Adrienne Marin MD [address] [place] [phone] 10/13/2024 1:30 PM CDT Appointment [facility] [address] [place], [place] [address] [address] Adrienne Marin MD [address] [place] [phone] 10/15/2024 1:30 PM CDT Appointment [facility] [address] [place], [place] [address] [address] Adrienne Marin MD [address] [place] [phone] 10/17/2024 1:30 PM CDT Appointment [facility] [address] Adrienne Marin MD [address] [place] [phone] 10/20/2024 1:30 PM CDT Appointment [facility] [place] [address] Adrienne Marin MD [address] [place] [phone] 10/22/2024 1:30 PM CDT Appointment [facility] [address] [place] [address] Adrienne Marin MD [address] [place] [phone] 10/24/2024 1:30 PM CDT Appointment [facility] [address] [place] [address] Adrienne Marin MD [address] [place] [phone] 10/27/2024 1:30 PM CDT Appointment [facility] [place] [address] Adrienne Marin MD [address] [place] [phone] 10/29/2024 1:30 PM CDT Appointment [facility] [place] [place] [address] Adrienne Marin MD [address] [place] [phone] 10/31/2024 1:30 PM CDT Appointment [facility] [place] [address] Adrienne Marin MD [address] [place] [phone] 11/03/2024 1:30 PM CDT Appointment [facility] [address] [place] [address] Adrienne Marin MD [address] [place] [phone] 11/05/2024 1:30 PM CDT Appointment [facility] [address] [place] [address] Adrienne Marin MD [address] [place] [phone] 11/07/2024 1:30 PM CDT Appointment [facility] [address] [place] [place] [address] Adrienne Marin MD [address] [place] [phone] 11/07/2024 2:40 PM CDT Office Visit [facility]ocr[facility] [address] [phone] Hannah Garrison MD [address] [place] [address] [id number] 11/10/2024 1:30 PM CDT Appointment [facility] [place] [address] Adrienne Marin MD [address] [place] [phone] 11/12/2024 1:30 PM CDT Appointment [facility] [place] [address] Adrienne Marin MD [address] [place] [phone] 11/14/2024 1:30 PM CDT Appointment [facility] [address] [place] [address] Adrienne Marin MD [address] [place] [phone] 11/19/2024 1:30 PM CDT Appointment [facility] [address] [place] [address] [place] [address] Adrienne Marin MD [address] [place] [phone] 11/21/2024 1:30 PM CDT Appointment [facility] [address] [place] [address] [address] [place] [address] Adrienne Marin MD [address] [place] [phone] 11/24/2024 1:30 PM CDT Appointment [facility] [address] [place] [address] [address] [place] [address] Adrienne Marin MD [address] [place] [phone] 11/26/2024 1:30 PM CDT Appointment [facility] [address] [place] [address] [place] [address] Adrienne Marin MD [address] [place] [phone] documented as of this encounter Goals Goal Patient Goal Type Associated Problems Recent Progress Patient-Stated? Author Patient will return to prior living situation and remain independent in ADLs upon discharge from hospital General No Diana Todd facsimile machine operator - family caregiver with be involved in care transitions and discharge planning General No Nicole Cole RN Safety Patient/family will have appropriate support at home upon discharge General No Ayleen Garcia, LANDSCAPE FOREMAN documented as of this encounter Visit Diagnoses Not on filedocumented in this encounter Additional Health Concerns Infection Onset Date Last Indicated Resolved Time COVID-19 Rule Out 05/13/2023 05/13/2023 05/13/2023 4:14 PM DIRECTOR OF BUSINESS SERVICES COVID-19 Rule Out 05/13/2023 05/13/2023 05/14/2023 1:35 AM DIRECTOR OF BUSINESS SERVICES COVID-19 Rule Out 07/08/2023 07/08/2023 07/08/2023 5:34 PM DIRECTOR OF BUSINESS SERVICES COVID-19 Rule Out 07/07/2024 07/07/2024 07/07/2024 7:39 AM DIRECTOR OF BUSINESS SERVICES Assessment Noted Time PHQ-9 Depression Total Score: 0 11/19/19 3:11 PM CDT documented as of this encounter Care Teams Customer Advocacy Manager Relationship Specialty Start Date End Date Adrian Lee MD [address] [place] [phone] PCP - General FAMILY PRACTICE 04/22/18 05/08/24 Adrienne Marin MD [address] [place] [address] PCP - General INTERNAL MEDICINE 05/09/24 Gladys Sanchez MD [address] [place] [address] [employer] Incident Manager CARDIOVASCULAR DISEASE 05/28/19 documented as of this encounter
--- OUTSIDE RECORDS SUMMARY | 2024-08-23 12:48 | XMS_ITS | Encounter Summary ---
Author Organization [facility] Address [facility] [place] [address] Care Team Providers Care Cd Reactor Operator Name Role Phone Gladys Sanchez MD Unavailable [phone] Adrienne Marin MD Primary Care Provider [phone] Encounter Details Date Type Department Care Team (Latest Contact Info) Description 08/22/2024 Travel Social History Tobacco Use Types Packs/Day Years Used Date Smoking Tobacco: Never Passive Smoke Exposure: Never Smokeless Tobacco: Never Comments:non-smoker Alcohol Use Standard Drinks/Week Comments No 0 (1 standard drink = 0.6 oz pur e alcohol) [facility] Utilities Answer Date Recorded In the past 12 months has e [employer], gas, oil, or water [employer] threatened to shut off services in your home? No 07/15/2024 Humiliation, Afraid, Rape, and Kick questionnair e Answer Date Recorded Within the last year, have y ou been afraid of your partner or ex-partner? No 07/15/2024 Within the last year, have y ou been humiliated or emotionally abused in other ways by your partner or ex-partner? No Within the last year, have y ou been kicked, hit, slapped, or otherwise physically hurt by your partner or ex-partner? No 07/15/2024 Within the last year, have y ou been raped or forced to have any kind of sexual activity by your partner or ex-partner? No 07/15/2024 AUDIT-C Answer Date Recorded Q1: How often do you have a drink containing alcohol? Never 07/07/2024 Q2: How many drinks containi ng alcohol do you have on a typical day when you are drinking? Patient does not drink Q3: How often do you have si x or more drinks on one occasion? Never 07/07/2024 Overall Financial Resource Strain (CARDIA) Answe r Date Recorded How hard is it for you to pa y for the very basics like food, housing, medical care, and heating? Not hard at all 07/15/2024 PHQ-2 Answer Date Recorded Patient Health Questionnaire-2 Score 0 05/09/2024 Hunger Vital Sign Answer Date Recorded Within the past 12 months, y ou worried that your food would run out before you got the money to buy more. Never true 07/15/19 25 Within the past 12 months, t he food you bought just didn't last and you didn't have money to get more. Never true 07/15/2024 PRAPARE - Transportation Answer Date Re corded In the past 12 months, has l ack of transportation kept you from medical appointments or from getting medications? No 06/26 In the past 12 months, has l ack of transportation kept you from meetings, work, or from getting things needed for daily living? No 07/15/2024 Housing Stability Vital Sign Answer Jayden e Recorded In the last 12 months, was t here a time when you were not able to pay the mortgage or rent on time? No 05/13/2023 In the last 12 months, how many places have you lived? 1 05/13/2023 In the last 12 months, was t here a time when you did not have a steady place to sleep or slept in a senior living (including now)? No 05/13/2023 Housing Stability Vital Sign Answer Jayden e Recorded In the last 12 months, was t here a time when you were not able to pay the mortgage or rent on time? No 07/15/2024 In the past 12 months, how m any times have you moved where you were living? 0 07/15/2024 At any time in the past 12 m [facility], were you homeless or living in a senior living (including now)? No 07/15/2024 Sex and Gender Information Value Date Recorded Sex Assigned at Male 07/08/2024 7:30 AM BARBER TOOL SHARPENER Legal Sex Male 8:56 PM CDT Gender Identity Male 07/08/2024 7:30 AM BARBER TOOL SHARPENER Sexual Orientation Straight 07/08/2024 7: 30 AM BARBER TOOL SHARPENER documented as of this encounter Functional Status * Are you deaf or do you have serious difficulty hearing Answer Date of Assessment Author Status Yes 07/15/2024 10:54 PM Moe Parsons RN Active * Are you blind or do you have serious difficulty seeing, even when wearing glasses? Answer Date of Assessment Author Status No 07/15/2024 10:54 PM Moe Parsons RN Active * Do you have serious difficulty walking or climbing stairs? Answer Date of Assessment Author Status No 07/15/2024 10:54 PM Moe Parsosn RN Active * Do you have difficulty dressing or bathing? Answer Date of Assessment Author Status No 07/15/2024 10:54 PM Moe Parsons RN Active * Because of a physical, mental, or emotional condition, do you have difficulty doing errands alone such as visiting a doctor's office or shopping? Answer Date of Assessment Author Status No 07/15/2024 10:54 PM Moe Parsons RN Active documented as of this encounter Mental Status * Because of a physical, mental, or emotional condition, do you have serious difficulty concentrating, remembering, or making decisions? Answer Entry Date Author Status No 07/15/2024 10:54 PM Moe Parsons RN Active documented in this encounter Plan of Treatment Upcoming Encounters Date Type Department Care Team (Late st Contact Info) Description 08/25/2024 1:30 PM BARBER TOOL SHARPENER Appointment [facility] [address] [place] [address] Adrienne Marin MD [address] [place] [phone] 08/27/2024 1:30 PM BARBER TOOL SHARPENER Appointment [facility] [place] [address] Adrienne Marin MD [address] [place] [phone] 08/29/2024 1:30 PM BARBER TOOL SHARPENER Appointment [facility] [place] [address] Adrienne Marin MD [address] [place] [phone] 09/01/2024 11:30 AM CDT Office Visit [facility] [address] [place], [place] [address] Anders Palacio NP [facility] [address] [place] [address] 09/01/2024 1:30 PM CDT Appointment [facility] [place] [address] Adrienne Marin MD [address] [place] [phone] 09/03/2024 1:30 PM CDT Appointment [facility] [place] [address] Adrienne Marin MD [address] [place] [phone] 09/05/2024 1:30 PM CDT Appointment [facility] [place] [address] Adrienne Marin MD [address] [place] [phone] 09/08/2024 1:30 PM CDT Appointment [facility] [place] [address] Adrienne Marin MD [address] [place] [phone] 09/10/2024 1:30 PM CDT Appointment [facility] [address] [place] [address] Adrienne Marin MD [address] [place] [phone] 09/12/2024 1:30 PM CDT Appointment [facility] [address] [place] [address] Adrienne Marin MD [address] [place] [phone] 09/15/2024 1:30 PM CDT Appointment [facility] [address] [place] [address] Adrienne Marin MD [address] [place] [phone] 09/17/2024 1:30 PM CDT Appointment [facility] [place] [address] Adrienne Marin MD [address] [place] [phone] 09/19/2024 1:30 PM CDT Appointment [facility] [address] [place] [address] Adrienne Marin MD [address] [place] [phone] 09/22/2024 1:30 PM CDT Appointment [facility] [address] [place] [address] Adrienne Marin MD [address] [place] [phone] 09/24/2024 1:30 PM CDT Appointment [facility] [address] [place] [address] [place] [address] Adrienne Marin MD [address] [place] [phone] 09/26/2024 1:30 PM CDT Appointment [facility] [address] [place] [address] [place] [address] Adrienne Marin MD [address] [place] [phone] 09/29/2024 1:30 PM CDT Appointment [facility] [address] [place] [address] [place] [address] Adrienne Marin MD [address] [place] [phone] 10/01/2024 1:30 PM CDT Appointment [facility] [address] [place] [address] [place] [address] Adrienne Marin MD [address] [place] [phone] 10/03/2024 1:30 PM CDT Appointment [facility] [address] [place] [address] [place] [address] Adrienne Marin MD [address] [place] [phone] 10/06/2024 1:30 PM CDT Appointment [facility] [address] [place] [address] Adrienne Marin MD [address] [place] [phone] 10/08/2024 1:30 PM CDT Appointment [facility] [address] [place], [place] [address] [address] Adrienne Marin MD [address] [place] [phone] 10/10/2024 1:30 PM CDT Appointment [facility] [address] [place], [place] [address] [address] Adrienne Marin MD [address] [place] [phone] 10/13/2024 1:30 PM CDT Appointment [facility] [place] [address] Adrienne Marin MD [address] [place] [phone] 10/15/2024 1:30 PM CDT Appointment [facility] [place] [address] Adrienne Marin MD [address] [place] [phone] 10/17/2024 1:30 PM CDT Appointment [facility] [place] [address] Adrienne Marin MD [address] [place] [phone] 10/20/2024 1:30 PM CDT Appointment [facility] [address] [place] [address] Adrienne Marin MD [address] [place] [phone] 10/22/2024 1:30 PM CDT Appointment [facility] [place] [address] Adrienne Marin MD [address] [place] [phone] 10/24/2024 1:30 PM CDT Appointment [facility] [address] [place], [place] [address] [place] [address] Adrienne Marin MD [address] [place] [phone] 10/27/2024 1:30 PM CDT Appointment [facility] [address] [place], [place] [address] [address] Adrienne Marin MD [address] [place] [phone] 10/29/2024 1:30 PM CDT Appointment [facility] [address] Adrienne Marin MD [address] [place] [phone] 10/31/2024 1:30 PM CDT Appointment [facility] [place] [address] Adrienne Marin MD [address] [place] [phone] 11/03/2024 1:30 PM CDT Appointment [facility] [place] [address] Adrienne Marin MD [address] [place] [phone] 11/05/2024 1:30 PM CDT Appointment [facility] [place] [address] Adrienne Marin MD [address] [place] [phone] 11/07/2024 1:30 PM CDT Appointment [facility] [place] [address] Adrienne Marin MD [address] [place] [phone] 11/07/2024 2:40 PM CDT Office Visit [facility] - [address] [phone] Hannah Garrison MD [address] [place] [phone] 11/10/2024 1:30 PM CDT Appointment [facility] [address] Adrienne Marin MD [address] [place] [phone] 11/12/2024 1:30 PM CDT Appointment [facility] [place] [address] Adrienne Marin MD [address] [place] [phone] 11/14/2024 1:30 PM CDT Appointment [facility] [address] [place] [address] [place] [address] Adrienne Marin MD [address] [place] [phone] 11/19/2024 1:30 PM CDT Appointment [facility] [address] [place] [address] [place] [address] Adrienne Marin MD [address] [place] [phone] 11/21/2024 1:30 PM CDT Appointment [facility] [address] [place] [address] [place] [address] Adrienne Marin MD [address] [place] [phone] 11/24/2024 1:30 PM CDT Appointment [facility] [address] [place] [address] [place] [address] Adrienne Marin MD [address] [place] [phone] 11/26/2024 1:30 PM CDT Appointment [facility] [address] [place] [address] [place] [address] Adrienne Marin MD [address] [place] [phone] documented as of this encounter Goals Goal Patient Goal Type Associated Problems Recent Progress Patient-Stated? Author Patient will return to prior living situation and remain independent in ADLs upon discharge from hospital General Diana Hallman, coating and embossing unit operator - family caregiver with be involved in care transitions and discharge planning General No Nicole Cole, RN Safety Patient/family will have appropriate support at home upon discharge General Ayleen Goyal, COLOR PASTE MIXING SUPERVISOR documented as of this encounter Visit Diagnoses Not on filedocumented in this encounter Additional Health Concerns Assessment Noted Time PHQ-9 Depression Total Score: 0 11/19/19 22 3:11 PM CDT documented as of this encounter Care Teams Cd Reactor Operator Relationship Specialty Start Date End Date Adrienne Marin MD [address] [place] [address] PCP - General INTERNAL MEDICINE 05/09/24 Gladys Sanchez MD [address] [place] [id number] [place] Bullet Charging Machine Operator CARDIOVASCULAR DISEASE 05/28/19 documented as of this encounter
--- OUTSIDE RECORDS SUMMARY | 2024-08-23 12:48 | XMS_ITS | Clinical Summary ---
Author Organization [facility] Address [address] [place] [address] Care Team Providers Care Community Outreach Worker Name Role Phone Gladys Sanchez MD Unavailable [phone] Adrienne Marin MD Primary Care Provider [phone] Allergies Active Allergy Reactions Criticality Noted Date Comments Cephalosporins Rash Low 12/03/2015 Penicillins Rash Low 07/07/2024 Pioglitazone Swelling 03/22/2018 Medications * This document contains information received from the source organization and may not represent a complete record from that organization. sertraline 100 MG tabletIndicatio ns:antidepressa nt Take 1 tablet (100 mg total) by mouth daily. Indications: antidepressant 10/18/19 Active Multiple Vitamins tabletIndicatio ns:supplement Take 1 tablet by mouth daily. Indications: supplement 10/18/19 Active WIXELA INHUB 250-50 MCG/DOSE inhalerIndicati ons:Sob Inhale 1 puff into the lungs 2 (two) times daily. Indications: Sob 05/25/20 Active ferrous sulfate EC 325 (65 Fe) MG tabletIndicatio ns:anemia Take 1 tablet by mouth daily with breakfast. Indications: anemia 10/18/19 Active acetaminophen CR 650 MG Tab CR 8 hr tabletIndicatio ns:pairn Take 2 tablets (1,300 mg total) by mouth daily. Indications: pairn 10/18/19 Active ASPIRIN LOW DOSE 81 MG tablet Take 1 tablet (81 mg total) by mouth daily. 06/12/20 Active Inulin (FIBER CHOICE) 1.5 g Chew Tab Chew 1 chewable tablet by mouth 2 (two) times daily. Active Easy Comfort Lancets Misc Active alfuzosin ER (UROXATRAL) 10 MG 24 hr tablet Take 1 tablet (10 mg total) by mouth daily. Active Cetirizine HCl (ZYRTEC ALLERGY) 10 MG Cap Take 10 mg by mouth daily. Active atorvastatin (LIPITOR) 80 MG tabletIndicatio ns:Dyslipidemia Take 1 tablet (80 mg total) by mouth nightly at bedtime. 30 tablet 09/02/19 Active hydrALAZINE (APRESOLINE) 50 MG tablet Take 1 tablet (50 mg total) by mouth 3 (three) times daily. 10/11/19 Active TRUEPLUS 5-BEVEL PEN NEEDLES 31G X 5 MM [facility] [place] USE TWICE DAILY TO INJECT LANTUS AND VICTOZA 08/31/19 Active NIFEdipine ER (ADALAT CC) 90 MG 24 hr tablet Take 1 tablet (90 mg total) by mouth daily. 02/09/20 Active pantoprazole EC (PROTONIX) 40 MG tablet Take 1 tablet (40 mg total) by mouth daily for 30 days. 30 tablet 05/19/20 Active NEBULIZER/TUBIN G/MOUTHPIECE KIT, DME,Indications :Acute on chronic diastolic congestive heart failure ([facility] HHS/HCC),Camarena ry artery disease involving council coronary artery of council heart without angina pectoris Nebulizer machine with all tubing Dx CHF exacerbation and Pneumonia 1 kit 05/18/20 Active insulin NPH isophane & regular (NOVOLIN 70/30 FLEXPEN) (70-30) 100 UNIT/ML injection (pen)Indication s:Type 2 diabetes mellitus with stage 3b chronic kidney disease, with long-term current use of insulin (CMS/HCC HHS/HCC) ADMINISTER 35 UNITS UNDER THE SKIN TWICE DAILY BEFORE MEALS 30 mL 5 09/11/19 24 Active Additional Information Patient taking differently: ADMINISTER 35 UNITS UNDER THE SKIN TWICE DAILY BEFORE MEALS pt taking 30 units and 20 units, Reported on 05/09/2024 glipiZIDE (GLUCOTROL) 10 MG tabletIndicatio ns:Type 2 diabetes mellitus with stage 3a chronic kidney disease, with long-term current use of insulin (CMS/HCC HHS/HCC) TAKE 1 TABLET(10 MG) BY MOUTH EVERY MORNING BEFORE BREAKFAST 90 tablet 1 06/26/20 24 Active metFORMIN ER (GLUCOPHAGE-XR) 500 MG 24 hr tabletIndicatio ns:Type 2 diabetes mellitus with stage 3a chronic kidney disease, with long-term current use of insulin ([facility] HHS/HCC) TAKE 1 TABLET BY MOUTH DAILY WITH SUPPER 90 tablet 3 01/28/20 24 Active furosemide (LASIX) 80 MG tablet take 1 tablet by mouth every morning 90 tablet 1 02/06/20 24 Active allopurinol (ZYLOPRIM) 100 MG tablet TAKE 1 TABLET(100 MG) BY MOUTH DAILY 90 tablet 1 03/27/20 24 Active gabapentin (NEURONTIN) 100 MG capsule Take 1 capsule (100 mg total) by mouth 3 (three) times daily. 90 capsule 08/03/19 25 Active carvedilol (COREG) 25 MG tablet Take 1 tablet (25 mg total) by mouth 2 (two) times daily. 60 tablet 08/03/19 25 Active levETIRAcetam (KEPPRA) 750 MG tablet Take 1 tablet (750 mg total) by mouth 2 (two) times daily. 120 tablet 08/03/19 25 Active isosorbide mononitrate ER (IMDUR) 30 MG 24 hr tablet Take 1 tablet (30 mg total) by mouth daily. 30 tablet 08/04/19 25 Active clopidogrel (PLAVIX) 75 MG tablet Take 1 tablet (75 mg total) by mouth daily for 30 days. 30 tablet 08/04/19 25 025 Active furosemide (LASIX) 40 MG tablet Take 1 tablet (40 mg total) by mouth nightly. 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 60 tablet 11 09/10/19 24 025 Discontin ued(Stop Taking at Discharge ) losartan (COZAAR) 50 MG tabletIndicatio ns:hypertension Take 1 tablet (50 mg total) by mouth 2 (two) times daily. Indications: hypertension 180 tablet 3 05/08/20 24 025 Discontin ued(Stop Taking at Discharge ) carvedilol (COREG) 12.5 MG tablet Take 1 tablet (12.5 mg total) by mouth 2 (two) times daily. 180 tablet 3 05/08/20 24 025 Discontin ued(Stop Taking at Discharge ) gabapentin (NEURONTIN) 300 MG capsule Take 1 capsule (300 mg total) by mouth 3 (three) times daily. 025 Discontin ued(Stop Taking at Discharge ) Active Problems Problem Noted Date Diagnosed Date Encephalopathy 07/06/2024 NSTEMI (non-ST elevated myoc ardial infarction) ([facility]) 05/13/2023 Stage 3b chronic kidney disease ([facility] ) 01/03/2023 Hyperuricemia w/o signs of i nflam arthrit and tophaceous dis 07/20/2022 Hypomagnesemia 03/20/2022 Benign prostatic hyperplasia without lower urinary tract symptoms 01/09/2022 Iron deficiency anemia 08/16/2021 S/P angioplasty with stent 04/26/2018 Chronic diastolic congestive heart failure ([facility]) 04/26/2018 Type 2 diabetes mellitus wit h stage 3b chronic kidney disease, with long-term current use of insulin ([facility]) 07/19/2017 Hypertension, essential Dyslipidemia CAD (coronary artery disease) Resolved Problems Problem Noted Date Diagnosed Date Resolved Date NSTEMI (non-ST elevated myoc ardial infarction) ([facility]) 06/14/2022 05/07/2023 Edema, unspecified type 03/20/202210/23 Hypokalemia 01/09/2022 05/07/2023 Diabetes mellitus without co mplication ([facility]) 01/09/2022 04/01/2022 Intracranial bleed ([facility]) 10/09/2021 11/18/2021 Dizziness 10/08/2021 11/18/2021 Acute respiratory failure ([facility]) 08/18/2021 11/18/2021 Pneumonia due to COVID-19 virus 08/18/2021 11/18/2021 PNA (pneumonia) 07/19/2021 11/18/2021 Stage 3a chronic kidney dise ase ([facility]) 06/01/2020 01/03/2023 Femoroacetabular impingement of both hips 09/04/2019 11/18/2021 Primary osteoarthritis of left hip 08/17/2019 11/18/2021 Primary osteoarthritis of right hip 08/17/2019 11/18/2021 Trigger finger, left ring finger 05/28/2019 11/18/2021 SOB (shortness of breath) 04/26/2018 Depression 07/19/2017 11/18/2021 Encounters Date Type Department Care Team Description 08/22/2024 1:24 PM PARISH VISITOR Hospital Encounter [facility] [address] [place] [address] Adrienne Marin MD Arrived 08/22/2024 Travel 08/18/2024 1:30 PM PARISH VISITOR - 08/18/2024 11:59 PM PARISH VISITOR Hospital Encounter [facility] [place] [address] Adrienne Marin MD Discharge Disposition: Home or Self Care (Routine Discharge) 08/18/2024 Travel 08/15/2024 9:55 AM PARISH VISITOR - 08/15/2024 11:59 PM PARISH VISITOR Hospital Encounter [facility] [address] [place] [address] [place] [address] Adrienne Marin MD Discharge Disposition: Home or Self Care (Routine Discharge) 08/15/2024 Travel 08/06/2024 [place] [address] Niesha Love LPN Follow Up Call ([facility] 07/15-08/03/24) 07/26/2024 Travel 07/24/2024 Telephone [place] [address] [place] [address] Ester Mae, thread trimmer (Swing bed referral to [facility] from [facility]/) 07/15/2024 8:40 PM PARISH VISITOR - 08/03/2024 3:26 PM PARISH VISITOR Hospital Encounter [facility] Tele[place] [address] Nidia Garcia MD Malcolm, MD John Alanis, Sabrina Garcia, DO Bocanegra, MD Janet Alarcon, MD Ezio Figueroa, Carl Swann MD Discharge Disposition: Home or Self Care (Routine Discharge) 07/15/2024 Travel 07/15/2024 Hospital Follow-up Call [facility] [place] [address] Niesha Love LPN Follow Up Call ([facility] 07/06-07/11/24) 07/07/2024 Travel 07/06/2024 10:48 PM PARISH VISITOR - 07/11/2024 11:33 PM PARISH VISITOR Hospital Encounter [facility] [place] [address] Denny Spaulding MD Tran, MD Lesley Limon Hana, MD Discharge Disposition: Left Against Medical Advice from Last 3 Months Immunizations Name Administration Dates Next Due Fluzone 6 Months+ Quad (0.5 mL Prefilled Syringe) 04/16/2020 Influenza (Generic) 04/17/2019,04/28/2015,2012 Influenza Adult (Generic) 04/22/2021,,04/15/2018,2016,03/13/2016,04/20/2014 Pneumococcal (Pneumovax 23) 04/17/2019 Pneumococcal (Prevnar 13) 04/15/2018 Family History Medical History Relation Comments No Known Problems Brother Stroke Father Heart Disease Mother Hypertension Mother No Known Problems Sister Relation Status Comments Brother Alive Father Mother Sister Alive Social History Tobacco Use Types Packs/Day Years Used Date Smoking Tobacco: Never Passive Smoke Exposure: Never Smokeless Tobacco: Never Tobacco Cessation:Counseling Given: Not Answered Comments:non-smoker Alcohol Use Standard Drinks/Week Comments No 0 (1 standard drink = 0.6 oz pur e alcohol) [facility] Utilities Answer Date Recorded In the past 12 months has [employer] gas, oil, or water company threatened to shut off services in your [...] place to sleep or slept in a correction (including now)? No 05/13/2023 Housing Stability Vital Sign Answer Jayden e Recorded In the last 12 months, was t here a time when you were not able to pay the mortgage or rent on time? No 07/15/2024 In the past 12 months, how m any times have you moved where you were living? 0 07/15/2024 At any time in the past 12 m [facility], were you homeless or living in a correction (including now)? No 07/15/2024 Sex and Gender Information Value Date Recorded Sex Assigned at Male 07/08/2024 7:30 AM PARISH VISITOR Legal Sex Male 8:56 PM CDT Gender Identity Male 07/08/2024 7:30 AM PARISH VISITOR Sexual Orientation Straight 07/08/2024 7: 30 AM PARISH VISITOR Last Filed Vital Signs Vital Sign Reading Time Taken Comments Blood Pressure 151/54 08/03/2024 11:10 AM PARISH VISITOR Pulse 65 08/03/2024 11:10 AM PARISH VISITOR Temperature 36.6 C (97.9 F) 08/03/2024 11:10 AM PARISH VISITOR Respiratory Rate 12 08/03/2024 11:10 AM PARISH VISITOR Oxygen Saturation 100% 08/03/2024 11:10 AM PARISH VISITOR Inhaled Oxygen Concentration - - Weight 73.9 kg (163 lb) 08/03/2024 4:25 AM PARISH VISITOR Height 170.2 cm (5' 7 ) 07/28/2024 6:16 PM PARISH VISITOR Body Mass Index 25.53 07/28/2024 6:16 PM PARISH VISITOR Plan of Treatment Upcoming Encounters Date Type Department Care Team (Late st Contact Info) Description 08/25/2024 1:30 PM PARISH VISITOR Appointment [place] [address] Adrienne Marin MD [address] [place] [phone] 08/27/2024 1:30 PM PARISH VISITOR Appointment [facility] [address] [place] [address] Adrienne Marin MD [address] [place] [phone] 08/29/2024 1:30 PM PARISH VISITOR Appointment [facility] [place] [address] Adrienne Marin MD [address] [place] [phone] 09/01/2024 11:30 AM CDT Office Visit [facility] [address] [place] [address] Anders Palacio, COURTNEY [facility] [address] [place] [address] 09/01/2024 1:30 PM CDT Appointment [facility] [address] [place], [place] [address] [address] Adrienne Marin MD [address] [place] [phone] 09/03/2024 1:30 PM CDT Appointment [facility] [place] [address] Adrienne Marin MD [address] [place] [phone] 09/05/2024 1:30 PM CDT Appointment [facility] [place] [address] Adrienne Marin MD [address] [place] [phone] 09/08/2024 1:30 PM CDT Appointment [facility] [address] [place] [address] Adrienne Marin MD [address] [place] [phone] 09/10/2024 1:30 PM CDT Appointment [facility] [address] [place] [address] Adrienne Marin MD [address] [place] [phone] 09/12/2024 1:30 PM CDT Appointment [facility] [place] [address] Adrienne Marin MD [address] [place] [phone] 09/15/2024 1:30 PM CDT Appointment [facility] [place] [address] Adrienne Marin MD [address] [place] [phone] 09/17/2024 1:30 PM CDT Appointment [facility] [place] [address] Adrienne Marin MD [address] [place] [phone] 09/19/2024 1:30 PM CDT Appointment [facility] [place] [address] Adrienne Marin MD [address] [place] [phone] 09/22/2024 1:30 PM CDT Appointment [facility] [facility] [place] [address] Adrienne Marin MD [address] [place] [phone] 09/24/2024 1:30 PM CDT Appointment [facility] [address] [place] [address] [address] [place] [address] Adrienne Marin MD [address] [place] [phone] 09/26/2024 1:30 PM CDT Appointment [facility] [address] [place], [place] [address] [address] Adrienne Marin MD [address] [place] [phone] 09/29/2024 1:30 PM CDT Appointment [facility] [address] [place], [place] [address] [address] Adrienne Marin MD [address] [place] [phone] 10/01/2024 1:30 PM CDT Appointment [facility] [place] [address] Adrienne Marin MD [address] [place] [phone] 10/03/2024 1:30 PM CDT Appointment [facility] [place] [address] Adrienne Marin MD [address] [place] [phone] 10/06/2024 1:30 PM CDT Appointment [facility] [address] [place] [address] Adrienne Marin MD [address] [place] [phone] 10/08/2024 1:30 PM CDT Appointment [facility] [address] [place] [address] Adrienne Marin MD [address] [place] [phone] 10/10/2024 1:30 PM CDT Appointment [facility] [address] [place] [address] [place] [address] Adrienne Marin MD [address] [place] [phone] 10/13/2024 1:30 PM CDT Appointment [facility] [address] [place], [place] [address] [address] Adrienne Marin MD [address] [place] [phone] 10/15/2024 1:30 PM CDT Appointment [facility] [place] [address] Adrienne Marin MD [address] [place] [phone] 10/17/2024 1:30 PM CDT Appointment [facility] [place] [address] Adrienne Marin MD [address] [place] [address] [place] [phone] 10/20/2024 1:30 PM CDT Appointment [facility] [address] [place] [place] [address] Adrienne Marin MD [address] [place] [phone] 10/22/2024 1:30 PM CDT Appointment [facility] [place] [address] Adrienne Marin MD [address] [place] [phone] 10/24/2024 1:30 PM CDT Appointment [facility] [place] [address] Adrienne Marin MD [address] [place] [phone] 10/27/2024 1:30 PM CDT Appointment [facility] [place] [address] Adrienne Marin MD [address] [place] [phone] 10/29/2024 1:30 PM CDT Appointment [facility] [place] [address] Adrienne Marin MD [address] [place] [phone] 10/31/2024 1:30 PM CDT Appointment [facility] [place] [address] Adrienne Marin MD [address] [place] [phone] 11/03/2024 1:30 PM CDT Appointment [facility] [address] [place] [id number] Adrienne Marin MD [address] [place] [phone] 11/05/2024 1:30 PM CDT Appointment [facility] [address] [place], [place] [address] Adrienne Marin MD [address] [place] [phone] 11/07/2024 1:30 PM CDT Appointment [facility] [place] [address] Adrienne Marin MD [address] [place] [phone] 11/07/2024 2:40 PM CDT Office Visit [facility] Diabetes and Endocrinology - [address] [phone] Hannah Garrison MD [address] [place] [id number] 11/10/2024 1:30 PM CDT Appointment [facility] [address] [place] [address] Adrienne Marin MD [address] [place] [phone] 11/12/2024 1:30 PM CDT Appointment [facility] [place] [address] Adrienne Marin MD [address] [place] [phone] 11/14/2024 1:30 PM CDT Appointment [facility] [place] [address] Adrienne Marin MD [address] [place] [phone] 11/19/2024 1:30 PM CDT Appointment [facility] [place] [address] Adrienne Marin MD [address] [place] [phone] 11/21/2024 1:30 PM CDT Appointment [facility] [place] [address] Adrienne Marin MD [address] [place] [phone] 11/24/2024 1:30 PM CDT Appointment [facility] [place] [address] Adrienne Marin MD [address] [place] [phone] 11/26/2024 1:30 PM CDT Appointment [facility] [place] [address] Adrienne Marin MD [address] [place] [phone] Health Maintenance Due Date Last Done Comments ASCVD Statin 1952 Diabetes: Retinopathy Eye Exam 1970 Hepatitis C 1970 DTaP, Tdap and Td Vaccines (1 - Tdap) 10/24/1971 Zoster Vaccines (1 of 2) 2002 RSV Immunization or 60+ Years (1 - Risk 60-74 years 1-dose series) 2012 Annual Medicare Wellness Visit 2017 COVID-19 Vaccine ( season) 2024 10/01/2020, 09/01/2020 Influenza Adult (#1) 2024 04/22/2021, 04/16/2020, 04/16/2020, Additional history exists PHQ-2 (Physician [place]) 06/25/2024 05/09/2024 Hemoglobin A1C 01/07/2025 07/10/2024, 06/25, 05/09/2024, Additional history exists Kidney Health Evaluation 04/25/2025 04/25/2024 Lipid Panel 07/07/2025 07/07/2024, 11/0 06/2023, 05/07/2023, Additional history exists Colorectal Cancer Screening Colonoscopy (10 Years) 05/31/2028 05/31/2018 Pneumococcal Vaccine: 65+ Years Completed 04/17/2019, 04/15/2018 Meningococcal B Vaccine Aged Out No l onger eligible based on patient's age to complete this topic Meningococcal Vaccine Aged Out No tutu karen eligible based on patient's age to complete this topic RSV Immunizations Under 20 Months Aged Out No longer eligible based on patient's age to complete this topic Goals Goal Patient Goal Type Associated Problems Recent Progress Patient-Stated? Author Patient will return to prior living situation and remain independent in ADLs upon discharge from hospital General No Diana Todd, blasting worker - family caregiver with be involved in care transitions and discharge planning General No Nicole Cole, RN Safety Patient/family will have appropriate support at home upon discharge General No Ayleen Gracia, FLAT OPTICAL ELEMENT MAKER Procedures Procedure Name Priority Date/Time Associated Diagnosis Comments POCT GLUCOSE - RUSSO DOCKED DEVICE Routine 08/03/2024 11:12 AM PARISH VISITOR COMPREHENSIVE METABOLIC PANEL Routine 08/03/2024 6:34 AM PARISH VISITOR CBC W/DIFF AUTOMATED Routine 08/03/2024 6:34 AM PARISH VISITOR POCT GLUCOSE - RUSSO DOCKED DEVICE Routine 08/03/2024 6:06 AM PARISH VISITOR POCT GLUCOSE - RUSSO DOCKED DEVICE Routine 08/02/2024 8:01 PM PARISH VISITOR POCT GLUCOSE - RUSSO DOCKED DEVICE Routine 08/02/2024 3:13 PM PARISH VISITOR POCT GLUCOSE - RUSSO DOCKED DEVICE Routine 08/02/2024 11:11 AM PARISH VISITOR COMPREHENSIVE METABOLIC PANEL Routine 08/02/2024 7:06 AM PARISH VISITOR CBC W/DIFF AUTOMATED Routine 08/02/2024 7:06 AM PARISH VISITOR POCT GLUCOSE - RUSSO DOCKED DEVICE Routine 08/02/2024 5:55 AM PARISH VISITOR POCT GLUCOSE - RUSSO DOCKED DEVICE Routine 08/01/2024 7:56 PM PARISH VISITOR POCT GLUCOSE - RUSSO DOCKED DEVICE Routine 08/01/2024 3:53 PM PARISH VISITOR POCT GLUCOSE - RUSSO DOCKED DEVICE Routine 08/01/2024 11:50 AM PARISH VISITOR COMPREHENSIVE METABOLIC PANEL Routine 08/01/2024 7:18 AM PARISH VISITOR CBC W/DIFF AUTOMATED Routine 08/01/2024 7:18 AM PARISH VISITOR POCT GLUCOSE - RUSSO DOCKED DEVICE Routine 08/01/2024 5:39 AM PARISH VISITOR POCT GLUCOSE - RUSSO DOCKED DEVICE Routine 07/31/2024 7:15 PM PARISH VISITOR POCT GLUCOSE - RUSSO DOCKED DEVICE Routine 07/31/2024 4:37 PM PARISH VISITOR POCT GLUCOSE - RUSSO DOCKED DEVICE Routine 07/31/2024 11:05 AM PARISH VISITOR POCT GLUCOSE - RUSSO DOCKED DEVICE Routine 07/31/2024 10:42 AM PARISH VISITOR COMPREHENSIVE METABOLIC PANEL Routine 07/31/2024 7:16 AM PARISH VISITOR CBC W/DIFF AUTOMATED Routine 07/31/2024 7:16 AM PARISH VISITOR POCT GLUCOSE - RUSSO DOCKED DEVICE Routine 07/31/2024 5:31 AM PARISH VISITOR POCT GLUCOSE - RUSSO DOCKED DEVICE Routine 07/30/2024 8:04 PM PARISH VISITOR POCT GLUCOSE - RUSSO DOCKED DEVICE Routine 07/30/2024 3:21 PM PARISH VISITOR POCT GLUCOSE - RUSSO DOCKED DEVICE Routine 07/30/2024 11:14 AM PARISH VISITOR COMPREHENSIVE METABOLIC PANEL Routine 07/30/2024 7:29 AM PARISH VISITOR CBC W/DIFF AUTOMATED Routine 07/30/2024 7:29 AM PARISH VISITOR POCT GLUCOSE - RUSSO DOCKED DEVICE Routine 07/30/2024 6:00 AM PARISH VISITOR POCT GLUCOSE - RUSSO DOCKED DEVICE Routine 07/30/2024 5:31 AM PARISH VISITOR POCT GLUCOSE - RUSSO DOCKED DEVICE Routine 07/29/2024 8:05 PM PARISH VISITOR POCT GLUCOSE - RUSSO DOCKED DEVICE Routine 07/29/2024 2:11 PM PARISH VISITOR XR CHEST PORTABLE Today 07/29/2024 1:2 5 PM PARISH VISITOR POCT GLUCOSE - RUSSO DOCKED DEVICE Routine 07/29/2024 10:12 AM PARISH VISITOR COMPREHENSIVE METABOLIC PANEL Routine 07/29/2024 7:11 AM PARISH VISITOR CBC W/DIFF AUTOMATED Routine 07/29/2024 7:11 AM PARISH VISITOR POCT GLUCOSE - RUSSO DOCKED DEVICE Routine 07/29/2024 5:56 AM PARISH VISITOR POCT GLUCOSE - RUSSO DOCKED DEVICE Routine 07/28/2024 7:47 PM PARISH VISITOR POCT GLUCOSE - RUSSO DOCKED DEVICE Routine 07/28/2024 3:04 PM PARISH VISITOR EEG ROUTINE Routine 07/28/2024 11:37 AM PARISH VISITOR POCT GLUCOSE - RUSSO DOCKED DEVICE Routine 07/28/2024 10:53 AM PARISH VISITOR EEG ROUTINE Routine 07/28/2024 6:03 AM PARISH VISITOR POCT GLUCOSE - RUSSO DOCKED DEVICE Routine 07/28/2024 5:59 AM PARISH VISITOR COMPREHENSIVE METABOLIC PANEL Routine 07/28/2024 4:40 AM PARISH VISITOR CBC W/DIFF AUTOMATED Routine 07/28/2024 4:40 AM PARISH VISITOR POCT GLUCOSE - RUSSO DOCKED DEVICE Routine 07/27/2024 7:57 PM PARISH VISITOR POCT GLUCOSE - RUSSO DOCKED DEVICE Routine 07/27/2024 2:23 PM PARISH VISITOR POCT GLUCOSE - RUSSO DOCKED DEVICE Routine 07/27/2024 10:41 AM PARISH VISITOR COMPREHENSIVE METABOLIC PANEL Routine 07/27/2024 8:24 AM PARISH VISITOR CBC W/DIFF AUTOMATED Routine 07/27/2024 8:24 AM PARISH VISITOR POCT GLUCOSE - RUSSO DOCKED DEVICE Routine 07/27/2024 6:26 AM PARISH VISITOR POCT GLUCOSE - RUSSO DOCKED DEVICE Routine 07/27/2024 12:10 AM PARISH VISITOR POCT GLUCOSE - RUSSO DOCKED DEVICE Routine 07/26/2024 7:44 PM PARISH VISITOR POCT GLUCOSE - RUSSO DOCKED DEVICE Routine 07/26/2024 3:06 PM PARISH VISITOR POCT GLUCOSE - RUSSO DOCKED DEVICE Routine 07/26/2024 11:16 AM PARISH VISITOR TROPONIN, QUANT TIMED 07/26/2024 10:49 AM PARISH VISITOR ECG 12-LEAD Routine 07/26/2024 9:22 AM PARISH VISITOR TROPONIN, QUANT TIMED 07/26/2024 8:40 AM PARISH VISITOR BLOOD GAS, ARTERIAL LAB STAT 07/26/19 8:10 AM PARISH VISITOR XR CHEST PORTABLE STAT 07/26/2024 8:0 3 AM PARISH VISITOR TROPONIN, QUANT TIMED 07/26/2024 6:52 AM PARISH VISITOR PRO-BRAIN NATRIURETIC PEPTIDE Routine 07/26/2024 6:52 AM PARISH VISITOR COMPREHENSIVE METABOLIC PANEL Routine 07/26/2024 6:52 AM PARISH VISITOR CBC W/DIFF AUTOMATED Routine 07/26/2024 6:52 AM PARISH VISITOR POCT GLUCOSE - RUSSO DOCKED DEVICE Routine 07/26/2024 6:48 AM PARISH VISITOR CTA HEAD+NECK STAT 07/26/2024 5:[address] HEAD WO CON STAT 07/26/2024 5:39 AM PARISH VISITOR POCT GLUCOSE - RUSSO DOCKED DEVICE Routine 07/26/2024 5:08 AM PARISH VISITOR POCT GLUCOSE - RUSSO DOCKED DEVICE Routine 07/25/2024 7:24 PM PARISH VISITOR POCT GLUCOSE - RUSSO DOCKED DEVICE Routine 07/25/2024 3:18 PM PARISH VISITOR XR CHEST PORTABLE Today 07/25/2024 2:0 8 PM PARISH VISITOR POCT GLUCOSE - RUSSO DOCKED DEVICE Routine 07/25/2024 11:17 AM PARISH VISITOR MRSA SCREENING Routine 07/25/2024 10:45 AM PARISH VISITOR PROCALCITONIN (PCT) Routine 07/25/2024 7 :11 AM PARISH VISITOR COMPREHENSIVE METABOLIC PANEL Routine 07/25/2024 7:11 AM PARISH VISITOR CBC W/DIFF AUTOMATED Routine 07/25/2024 7:11 AM PARISH VISITOR POCT GLUCOSE - RUSSO DOCKED DEVICE Routine 07/25/2024 5:54 AM PARISH VISITOR POCT GLUCOSE - RUSSO DOCKED DEVICE Routine 07/24/2024 7:28 PM PARISH VISITOR POCT GLUCOSE - RUSSO DOCKED DEVICE Routine 07/24/2024 2:31 PM PARISH VISITOR POCT GLUCOSE - RUSSO DOCKED DEVICE Routine 07/24/2024 11:37 AM PARISH VISITOR ECG 12-LEAD Routine 07/24/2024 11:28 AM PARISH VISITOR COMPREHENSIVE METABOLIC PANEL Routine 07/24/2024 6:54 AM PARISH VISITOR CBC W/DIFF AUTOMATED Routine 07/24/2024 6:54 AM PARISH VISITOR POCT GLUCOSE - RUSSO DOCKED DEVICE Routine 07/24/2024 6:24 AM PARISH VISITOR POCT GLUCOSE - RUSSO DOCKED DEVICE Routine 07/23/2024 8:09 PM PARISH VISITOR POCT GLUCOSE - RUSSO DOCKED DEVICE Routine 07/23/2024 2:35 PM PARISH VISITOR POCT GLUCOSE - RUSSO DOCKED DEVICE Routine 07/23/2024 10:25 AM PARISH VISITOR MAGNESIUM Routine 07/23/2024 9:59 AM PARISH VISITOR COMPREHENSIVE METABOLIC PANEL Routine 07/23/2024 9:59 AM PARISH VISITOR CBC W/DIFF AUTOMATED Routine 07/23/2024 9:59 AM PARISH VISITOR POCT GLUCOSE - RUSSO DOCKED DEVICE Routine 07/23/2024 5:45 AM PARISH VISITOR POCT GLUCOSE - RUSSO DOCKED DEVICE Routine 07/22/2024 8:06 PM PARISH VISITOR HC URINALYSIS AUTO W/O MICRO Routine 07/22/2024 6:00 PM PARISH VISITOR POCT GLUCOSE - RUSSO DOCKED DEVICE Routine 07/22/2024 4:38 PM PARISH VISITOR POCT GLUCOSE - RUSSO DOCKED DEVICE Routine 07/22/2024 10:33 AM PARISH VISITOR AMMONIA Routine 07/22/2024 10:18 AM PARISH VISITOR LACTIC ACID Routine 07/22/2024 10:18 AM PARISH VISITOR CULTURE, BACTERIA, BLOOD Routine 07/22/2024 10:17 AM PARISH VISITOR PROCALCITONIN (PCT) Routine 07/22/2024 7 :11 AM PARISH VISITOR COMPREHENSIVE METABOLIC PANEL Routine 07/22/2024 7:11 AM PARISH VISITOR CBC W/DIFF AUTOMATED Routine 07/22/2024 7:11 AM PARISH VISITOR POCT GLUCOSE - RUSSO DOCKED DEVICE Routine 07/22/2024 5:46 AM PARISH VISITOR POCT GLUCOSE - RUSSO DOCKED DEVICE Routine 07/21/2024 8:42 PM PARISH VISITOR XA LHC POSS Today 07/21/2024 6:25 PM PARISH VISITOR POCT ACTIVATED CLOTTING TIME - ISTAT DOCKED DEVICE Routine 07/21/2024 6:02 PM PARISH VISITOR HEMOGLOBIN AND HEMATOCRIT STAT 07/21/2024 5:57 PM PARISH VISITOR POCT ACTIVATED CLOTTING TIME - ISTAT DOCKED DEVICE Routine 07/21/2024 5:46 PM PARISH VISITOR POCT GLUCOSE - RUSSO DOCKED DEVICE Routine 07/21/2024 12:03 PM PARISH VISITOR POCT GLUCOSE - RUSSO DOCKED DEVICE Routine 07/21/2024 8:29 AM PARISH VISITOR HEPARIN, ANTI XA, UFH STAT 07/21/2024 4:50 AM PARISH VISITOR FERRITIN Routine 07/21/2024 4:35 AM PARISH VISITOR IRON SAT PANEL (IRON,IBC,%SAT) Routine 07/21/2024 4:35 AM PARISH VISITOR COMPREHENSIVE METABOLIC PANEL Routine 07/21/2024 4:35 AM PARISH VISITOR CBC W/DIFF AUTOMATED Routine 07/21/2024 4:35 AM PARISH VISITOR POCT GLUCOSE - RUSSO DOCKED DEVICE Routine 07/20/2024 8:31 PM PARISH VISITOR POCT GLUCOSE - RUSSO DOCKED DEVICE Routine 07/20/2024 4:[address] CHEST WO CON Today 07/20/2024 3:12 PM PARISH VISITOR POCT GLUCOSE - RUSSO DOCKED DEVICE Routine 07/20/2024 11:42 AM PARISH VISITOR POCT GLUCOSE - RUSSO DOCKED DEVICE Routine 07/20/2024 7:19 AM PARISH VISITOR HEPARIN, ANTI XA, UFH Routine 07/20/2024 5:42 AM PARISH VISITOR COMPREHENSIVE METABOLIC PANEL Routine 07/20/2024 5:42 AM PARISH VISITOR CBC W/DIFF AUTOMATED Routine 07/20/2024 5:42 AM PARISH VISITOR POCT GLUCOSE - RUSSO DOCKED DEVICE Routine 07/20/2024 2:33 AM PARISH VISITOR POCT GLUCOSE - RUSSO DOCKED DEVICE Routine 07/19/2024 9:23 PM PARISH VISITOR POCT GLUCOSE - RUSSO DOCKED DEVICE Routine 07/19/2024 4:45 PM PARISH VISITOR POCT GLUCOSE - RUSSO DOCKED DEVICE Routine 07/19/2024 11:54 AM PARISH VISITOR POCT GLUCOSE - RUSSO DOCKED DEVICE Routine 07/19/2024 7:58 AM PARISH VISITOR HEPARIN, ANTI XA, UFH TIMED 07/19/2024 7:29 AM PARISH VISITOR COMPREHENSIVE METABOLIC PANEL Routine 07/19/2024 5:40 AM PARISH VISITOR CBC W/DIFF AUTOMATED Routine 07/19/2024 5:40 AM PARISH VISITOR PROCALCITONIN (PCT) Routine 07/19/2024 5 :40 AM PARISH VISITOR PHOSPHORUS, INORGANIC PHOSPHATE Routine 07/19/2024 5:40 AM PARISH VISITOR MAGNESIUM Routine 07/19/2024 5:40 AM PARISH VISITOR POCT GLUCOSE - RUSSO DOCKED DEVICE Routine 07/19/2024 12:06 AM PARISH VISITOR HEPARIN, ANTI XA, UFH TIMED 07/19/2024 12:05 AM PARISH VISITOR POCT GLUCOSE - RUSSO DOCKED DEVICE Routine 07/18/2024 8:35 PM PARISH VISITOR HEPARIN, ANTI XA, UFH TIMED 07/18/2024 5:50 PM PARISH VISITOR POCT GLUCOSE - RUSSO DOCKED DEVICE Routine 07/18/2024 4:49 PM PARISH VISITOR NM LUNG PERFUSION Today 07/18/2024 2:1 9 PM PARISH VISITOR POCT GLUCOSE - RUSSO DOCKED DEVICE Routine 07/18/2024 11:58 AM PARISH VISITOR HEPARIN, ANTI XA, UFH TIMED 07/18/2024 11:30 AM PARISH VISITOR POCT GLUCOSE - RUSSO DOCKED DEVICE Routine 07/18/2024 8:27 AM PARISH VISITOR POCT GLUCOSE - RUSSO DOCKED DEVICE Routine 07/18/2024 5:41 AM PARISH VISITOR HEPARIN, ANTI XA, UFH TIMED 07/18/2024 5:00 AM PARISH VISITOR PROCALCITONIN (PCT) Routine 07/18/2024 5 :00 AM PARISH VISITOR PHOSPHORUS, INORGANIC PHOSPHATE Routine 07/18/2024 5:00 AM PARISH VISITOR MAGNESIUM Routine 07/18/2024 5:00 AM PARISH VISITOR COMPREHENSIVE METABOLIC PANEL Routine 07/18/2024 5:00 AM PARISH VISITOR CBC W/DIFF AUTOMATED Routine 07/18/2024 5:00 AM PARISH VISITOR POCT GLUCOSE - RUSSO DOCKED DEVICE Routine 07/18/2024 1:18 AM PARISH VISITOR POCT GLUCOSE - RUSSO DOCKED DEVICE Routine 07/17/2024 7:55 PM PARISH VISITOR POTASSIUM, SERUM Routine 07/17/2024 5:21 PM PARISH VISITOR POCT GLUCOSE - RUSSO DOCKED DEVICE Routine 07/17/2024 3:33 PM PARISH VISITOR XR CHEST PORTABLE Today 07/17/2024 12: 35 PM PARISH VISITOR POCT GLUCOSE - RUSSO DOCKED DEVICE Routine 07/17/2024 11:42 AM PARISH VISITOR POCT GLUCOSE - RUSSO DOCKED DEVICE Routine 07/17/2024 8:24 AM PARISH VISITOR HEPARIN, ANTI XA, UFH TIMED 07/17/2024 3:30 AM PARISH VISITOR TROPONIN, QUANT TIMED 07/17/2024 3:30 AM PARISH VISITOR PROCALCITONIN (PCT) Routine 07/17/2024 3 :30 AM PARISH VISITOR PHOSPHORUS, INORGANIC PHOSPHATE Routine 07/17/2024 3:30 AM PARISH VISITOR MAGNESIUM Routine 07/17/2024 3:30 AM PARISH VISITOR COMPREHENSIVE METABOLIC PANEL Routine 07/17/2024 3:30 AM PARISH VISITOR CBC W/DIFF AUTOMATED Routine 07/17/2024 3:30 AM PARISH VISITOR POCT GLUCOSE - RUSSO DOCKED DEVICE Routine 07/17/2024 1:19 AM PARISH VISITOR POCT GLUCOSE - RUSSO DOCKED DEVICE Routine 07/16/2024 9:45 PM PARISH VISITOR MRI BRAIN WWO CON Today 07/16/2024 9:0 7 PM PARISH VISITOR POCT GLUCOSE - RUSSO DOCKED DEVICE Routine 07/16/2024 4:16 PM PARISH VISITOR TROPONIN, QUANT Routine 07/16/2024 4:15 PM PARISH VISITOR HEPARIN, ANTI XA, UFH TIMED 07/16/2024 4:15 PM PARISH VISITOR POCT GLUCOSE - RUSSO DOCKED DEVICE Routine 07/16/2024 12:13 PM PARISH VISITOR TROPONIN, QUANT Routine 07/16/2024 10:55 AM PARISH VISITOR HEPARIN, ANTI XA, UFH TIMED 07/16/2024 10:55 AM PARISH VISITOR POCT GLUCOSE - RUSSO DOCKED DEVICE Routine 07/16/2024 9:02 AM PARISH VISITOR POCT GLUCOSE - RUSSO DOCKED DEVICE Routine 07/16/2024 5:47 AM PARISH VISITOR PROCALCITONIN (PCT) Routine 07/16/2024 4 :25 AM PARISH VISITOR PHOSPHORUS, INORGANIC PHOSPHATE Routine 07/16/2024 4:25 AM PARISH VISITOR MAGNESIUM Routine 07/16/2024 4:25 AM PARISH VISITOR CBC W/DIFF AUTOMATED Routine 07/16/2024 4:25 AM PARISH VISITOR BASIC METABOLIC PANEL Routine 07/16/2024 4:25 AM PARISH VISITOR ECG 12-LEAD Routine 07/16/2024 2:28 AM PARISH VISITOR HC URINALYSIS AUTO W/O MICRO Routine 07/16/2024 2:03 AM PARISH VISITOR HEPARIN, ANTI XA, UFH TIMED 07/16/2024 1:55 AM PARISH VISITOR PROTHROMBIN TIME, VENOUS STAT 07/16/2024 1:55 AM PARISH VISITOR PARTIAL THROMBOPLASTIN TIME,PTT STAT 07/16/2024 1:55 AM PARISH VISITOR POCT GLUCOSE - RUSSO DOCKED DEVICE Routine 07/16/2024 1:[address] HEAD WO CON Today 07/15/2024 10:25 PM PARISH VISITOR PRO-BRAIN NATRIURETIC PEPTIDE STAT 07/15/2024 9:59 PM PARISH VISITOR TROPONIN, QUANT STAT 07/15/2024 9:59 PM PARISH VISITOR PHOSPHORUS, INORGANIC PHOSPHATE STAT 07/15/2024 9:59 PM PARISH VISITOR MAGNESIUM STAT 07/15/2024 9:59 PM PARISH VISITOR CBC W/DIFF AUTOMATED STAT 07/15/2024 9:59 PM PARISH VISITOR BASIC METABOLIC PANEL STAT 07/15/2024 9:59 PM PARISH VISITOR POCT GLUCOSE - RUSSO DOCKED DEVICE Routine 07/15/2024 9:47 PM PARISH VISITOR MRSA SCREENING Routine 07/15/2024 9:30 PM PARISH VISITOR BLOOD GAS, ARTERIAL LAB Routine 07/15/19 9:20 PM PARISH VISITOR POCT GLUCOSE - RUSSO DOCKED DEVICE Routine 07/11/2024 5:21 PM PARISH VISITOR POCT GLUCOSE - RUSSO DOCKED DEVICE Routine 07/11/2024 12:01 PM PARISH VISITOR BASIC METABOLIC PANEL Routine 07/11/2024 8:51 AM PARISH VISITOR CBC W/DIFF AUTOMATED Routine 07/11/2024 8:51 AM PARISH VISITOR PROCALCITONIN (PCT) Routine 07/11/2024 8 :51 AM PARISH VISITOR MAGNESIUM Routine 07/11/2024 8:51 AM PARISH VISITOR POCT GLUCOSE - RUSSO DOCKED DEVICE Routine 07/11/2024 7:56 AM PARISH VISITOR POCT GLUCOSE - RUSSO DOCKED DEVICE Routine 07/11/2024 5:46 AM PARISH VISITOR POCT GLUCOSE - RUSSO DOCKED DEVICE Routine 07/10/2024 9:50 PM PARISH VISITOR POCT GLUCOSE - RUSSO DOCKED DEVICE Routine 07/10/2024 6:47 PM PARISH VISITOR POCT GLUCOSE - RUSSO DOCKED DEVICE Routine 07/10/2024 3:32 PM PARISH VISITOR EEG ROUTINE Routine 07/10/2024 2:04 PM PARISH VISITOR POCT GLUCOSE - RUSSO DOCKED DEVICE Routine 07/10/2024 11:08 AM PARISH VISITOR KEPPRA LEVEL Routine 07/10/2024 7:00 AM PARISH VISITOR HEMOGLOBIN, GLYCOSYLATED Routine 07/10/2024 7:00 AM PARISH VISITOR COMPREHENSIVE METABOLIC PANEL Routine 07/10/2024 7:00 AM PARISH VISITOR CBC W/DIFF AUTOMATED Routine 07/10/2024 7:00 AM PARISH VISITOR PROCALCITONIN (PCT) Routine 07/10/2024 7 :00 AM PARISH VISITOR MAGNESIUM Routine 07/10/2024 7:00 AM PARISH VISITOR POCT GLUCOSE - RUSSO DOCKED DEVICE Routine 07/10/2024 5:52 AM PARISH VISITOR POCT GLUCOSE - RUSSO DOCKED DEVICE Routine 07/09/2024 8:06 PM PARISH VISITOR MRA NECK WO CON Today 07/09/2024 7:13 PM PARISH VISITOR MRA HEAD WO CON Today 07/09/2024 7:13 PM PARISH VISITOR MRI BRAIN WO CON Today 07/09/2024 7:00 PM PARISH VISITOR XR SHOULDER LT 3V Today 07/09/2024 4:5 3 PM PARISH VISITOR POCT GLUCOSE - RUSSO DOCKED DEVICE Routine 07/09/2024 4:[address] HEAD WO CON STAT 07/09/2024 1:57 PM PARISH VISITOR POCT GLUCOSE - RUSSO DOCKED DEVICE Routine 07/09/2024 12:55 PM PARISH VISITOR US RETROPERITONEAL COMP WICHO 07/09/19 11:32 AM PARISH VISITOR POCT GLUCOSE - RUSSO DOCKED DEVICE Routine 07/09/2024 8:47 AM PARISH VISITOR PROCALCITONIN (PCT) WICHO 07/09/2024 8 :22 AM PARISH VISITOR TROPONIN, QUANT Routine 07/09/2024 3:57 AM PARISH VISITOR MAGNESIUM Routine 07/09/2024 3:57 AM PARISH VISITOR COMPREHENSIVE METABOLIC PANEL Routine 07/09/2024 3:57 AM PARISH VISITOR CBC W/DIFF AUTOMATED Routine 07/09/2024 3:57 AM PARISH VISITOR ECG 12-LEAD Routine 07/08/2024 8:02 PM PARISH VISITOR POCT GLUCOSE - RUSSO DOCKED DEVICE Routine 07/08/2024 7:51 PM PARISH VISITOR POCT GLUCOSE - RUSSO DOCKED DEVICE Routine 07/08/2024 4:39 PM PARISH VISITOR POCT GLUCOSE - RUSSO DOCKED DEVICE Routine 07/08/2024 11:48 AM PARISH VISITOR POCT GLUCOSE - RUSSO DOCKED DEVICE Routine 07/08/2024 7:57 AM PARISH VISITOR PROCALCITONIN (PCT) Routine 07/08/2024 5 :24 AM PARISH VISITOR PRO-BRAIN NATRIURETIC PEPTIDE Routine 07/08/2024 5:24 AM PARISH VISITOR MAGNESIUM Routine 07/08/2024 5:24 AM PARISH VISITOR COMPREHENSIVE METABOLIC PANEL Routine 07/08/2024 5:24 AM PARISH VISITOR CBC W/DIFF AUTOMATED Routine 07/08/2024 5:24 AM PARISH VISITOR POCT GLUCOSE - RUSSO DOCKED DEVICE Routine 07/07/2024 7:56 PM PARISH VISITOR POCT GLUCOSE - RUSSO DOCKED DEVICE Routine 07/07/2024 4:49 PM PARISH VISITOR POCT GLUCOSE - RUSSO DOCKED DEVICE Routine 07/07/2024 12:15 PM PARISH VISITOR MRI BRAIN WO CON Today 07/07/2024 11:5 4 AM PARISH VISITOR USE ECHOCARDIOGRAM W CON Today 07/07/2024 9:52 AM PARISH VISITOR AMMONIA Routine 07/07/2024 9:37 AM PARISH VISITOR TROPONIN, QUANT Routine 07/07/2024 9:37 AM PARISH VISITOR POCT GLUCOSE - RUSSO DOCKED DEVICE Routine 07/07/2024 7:57 AM PARISH VISITOR HIV 1 ANTIGEN(S), WITH HIV-1 AND HIV-2 ANTIBODIES Routine 07/07/2024 6:36 AM PARISH VISITOR SCL 70 Routine 07/07/2024 6:36 AM PARISH VISITOR ANCA VASCULITIS PANEL Routine 07/07/2024 6:36 AM PARISH VISITOR CK (CPK) Routine 07/07/2024 6:36 AM PARISH VISITOR CYCLIC CITRULLINATED PEPTIDE (CCP)ANTIBODY(IGG) Routine 07/07/2024 6:36 AM PARISH VISITOR ANTINUCLEAR ANTIBODY WI RFX Routine 07/07/2024 6:36 AM PARISH VISITOR HEMOGLOBIN, GLYCOSYLATED Routine 07/07/2024 4:20 AM PARISH VISITOR PROCALCITONIN (PCT) Routine 07/07/2024 3 :34 AM PARISH VISITOR LIPID PANEL Routine 07/07/2024 3:34 AM PARISH VISITOR THYROID STIM HORMONE TSH Routine 07/07/2024 3:34 AM PARISH VISITOR MAGNESIUM Routine 07/07/2024 3:34 AM PARISH VISITOR COMPREHENSIVE METABOLIC PANEL Routine 07/07/2024 3:34 AM PARISH VISITOR PROTHROMBIN TIME, VENOUS Routine 07/07/2024 3:34 AM PARISH VISITOR CBC W/DIFF AUTOMATED Routine 07/07/2024 3:34 AM PARISH VISITOR RESPIRATORY PCR PANEL 2 Routine 07/07/19 1:16 AM PARISH VISITOR CULTURE, BACTERIA, BLOOD Routine 07/07/2024 12:30 AM PARISH VISITOR FOLIC ACID SERUM Routine 07/07/2024 12:3 0 AM PARISH VISITOR VITAMIN B-12 Routine 07/07/2024 12:30 AM PARISH VISITOR TRANSFERRIN Routine 07/07/2024 12:30 AM PARISH VISITOR FERRITIN Routine 07/07/2024 12:30 AM PARISH VISITOR IRON SAT PANEL (IRON,IBC,%SAT) Routine 07/07/2024 12:30 AM PARISH VISITOR LACTIC ACID Routine 07/07/2024 12:30 AM PARISH VISITOR TROPONIN, QUANT Routine 07/07/2024 12:30 AM PARISH VISITOR URINE BACTERIA CULTURE Routine 11:25 PM PARISH VISITOR DRUG SCREEN RAPID Routine 07/06/2024 11: 25 PM PARISH VISITOR HC URINALYSIS AUTO W/O MICRO Routine 07/06/2024 11:25 PM PARISH VISITOR POCT GLUCOSE - RUSSO DOCKED DEVICE Routine 07/06/2024 11:16 PM PARISH VISITOR MRSA SCREENING Routine 07/06/2024 11:08 PM PARISH VISITOR COLONOSCOPY GENERIC (SCAN ORDER) Routine 05/31/2018 from Last 3 Months or Most Recently Relevant to Health Maintenance Results * (ABNORMAL) POCT glucose (08/03/2024 11:12 AM PARISH VISITOR) Only the most recent of107 resultswithin the time period is included. GLUCOSE POC 233(H) 70 - 99 mg/dL 08/03/2024 11:27 AM PARISH VISITOR [facility] 08/03/2024 11:1 2 AM PARISH VISITOR us Carl Holguin MD POCT ORDERABLES - DEVICE Final Result [facility] [address] [place] [address], * (ABNORMAL) COMPREHENSIVE METABOLIC PANEL (08/03/2024 6:34 AM PARISH VISITOR) Only the most recent of22 resultswithin the time period is included. GLUCOSE 132(H) 70 - 99 MG/DL 08/03/2024 8:13 AM PARISH VISITOR [facility] BUN 24(H) 7 - 18 MG/DL 08/03/2024 8:13 AM PARISH VISITOR [facility] CREATININE S/P/B 1.67(H) 0.7 - 1.3 MG/DL 08/03/2024 8:13 AM PARISH VISITOR [facility] SODIUM S/P/B 141 136 - 145 MMOL/L 08/03/2024 8:13 AM PARISH VISITOR [facility] POTASSIUM S/P/B 3.7 3.5 - 5.1 MMOL/L 08/03/2024 8:13 AM [facility] CHLORIDE S/P/B 110 97 - 115 MMOL/L 08/03/2024 8:13 AM [facility] CO2 24.0 21 - 32 MMOL/L 08/03/2024 8:13 AM [facility] CALCIUM S/P/B 9.0 8.5 - 10.1 MG/DL 08/03/2024 8:13 AM [facility] BILIRUBIN TOTAL S/P/B 0.3 0.2 - 1.2 MG/DL 08/03/2024 8:13 AM [facility] Comment: THIS ASSAY IS NOT RECOMMENDED FOR PATIENTS UNDERGOING TREATMENT WITH ELTROMBOPAG DUE TO THE POTENTIAL FOR FALSELY ELEVATED RESULTS. TOTAL PROTEIN S/P/B 6.0(L) 6.4 - 8.2 G/DL 08/03/2024 8:13 AM [facility] ALBUMIN S/P/B 2.5(L) 3.4 - 5.0 G/DL 08/03/2024 8:13 AM [facility] AST 16 15 - 37 U/L 08/03/2024 8:13 AM [facility] ALT 15(L) 16 - 60 U/L 08/03/2024 8:13 AM [facility] ALKALINE PHOSPHATASE S/P/B 79 50 - 136 U/L 08/03/2024 8:13 AM [facility] ANION GAP 7.0 2 - 10 MMOL/L 08/03/2024 8:13 AM [facility] BUN CREATININE RATIO 14.4 6 - 26 08/03/2024 8:13 AM [facility] A/G RATIO 0.7(L) 1.0 - 2.0 RATIO 08/03/2024 8:13 AM [facility] GFR ESTIMATE 43(L) >90 ML/MIN/1.7 3 M2 08/03/2024 8:13 AM [facility] Comment: NOTE: eGFR is not calculated for patients <18 years of age or gender unknown. This is an estimated GFR calculation using the new CKD EPI creatinine equation without race and so does not require a correction factor for race. This estimated GFR should not be used for calculating drug doses. 08/03/2024 6:34 AM [facility] Sabrina Gonzales MD LABORATORY Final Res ult [facility] [address] [place] [address], [place] [phone] * (ABNORMAL) CBC W/DIFF AUTOMATED (08/03/2024 6:34 AM PARISH VISITOR) Only the most recent of25 resultswithin the time period is included. WBC 5.53 4.5 - 11.0 x10'3/uL 08/03/2024 7:44 AM [facility] RBC 2.59(L) 4.70 - 6.10 x10'6/uL 08/03/2024 7:44 AM [facility] HGB 7.4(L) 14.0 - 18.0 G/DL 08/03/2024 7:44 AM [facility] HCT 23.5(L) 43.0 - 54.0 % 08/03/2024 7:44 AM [facility] MCV 90.7 80.0 - 94.0 FL 08/03/2024 7:44 AM [facility] MCH 28.6 27.0 - 31.0 PG 08/03/2024 7:44 AM [facility] MCHC 31.5(L) 32.0 - 36.0 G/DL 08/03/2024 7:44 AM [facility] RDW 13.8 11.5 - 14.5 % 08/03/2024 7:44 AM [facility] PLT 165 130 - 400 x10'3/uL 08/03/2024 7:44 AM [facility] MPV 13.0(H) 9.3 - 12.2 FL 08/03/2024 7:44 AM [facility] DIFFERENTIAL TYPE MANUAL DIFFERENTIAL 08/03/2024 8:16 AM [facility] SEG NEUTROPHILS 70 % 8:16 AM [facility] LYMPHOCYTES 10 % 08/03/2024 8:16 AM [facility] MONOCYTES 10 % 08/03/2024 8:16 AM [facility] EOSINOPHILS 9 % 08/03/2024 8:16 AM [facility] BASOPHILS 1 % 08/03/2024 8:16 AM [facility] ABS. NEUTROPHILS 3.87 1.80 - 7.70 x10'3/uL 08/03/2024 8:16 AM [facility] ABS. LYMPHOCYTES 0.55(L) 1.00 - 4.80 x10'3/uL 08/03/2024 8:16 AM [facility] ABS. MONOCYTES 0.55 0.30 - 0.82 x10'3/uL 08/03/2024 8:16 AM [facility] ABS. EOSINOPHILS 0.50 0.04 - 0.54 x10'3/uL 08/03/2024 8:16 AM [facility] ABS. BASOPHILS 0.06 0.01 - 0.08 x10'3/uL 08/03/2024 8:16 AM [facility] RBC MORPHOLOGY RBC MORPHOLOGY APPEARS NORMAL. SLIDE REVIEWED. 08/03/2024 8:16 AM [facility] PLT EST. ADEQUATE 08/03/2024 8:16 AM PAR[facility]IS[facility]OR [facility] 08/03/2024 6:34 AM PAR[facility] VISIT[facility] Sabrina Gonzales MD LABORATORY Final Res ult [facility] [address] [place] [address], * XR CHEST PORTABLE (07/29/2024 1:25 PM PARISH VISITOR) Only the most recent of4 resultswithin the time period is included. Anatomical Region Laterality Modality Chest Radiographic Rozina ging 07/29/2024 1:38 PM PARISH VISITOR Impressions 07/29/2024 1:38 PM PARISH VISITOR IMPRESSION: Stable chest, no acute findings. Ordered By: NIKKI WOLFE Interpreted By: Brooks Gresham MD, 07/29/2024 1:38 PM Narrative 07/29/2024 1:38 PM PAR[facility] VISITOR [place] [id number] SINGLE VIEW OF THE CHEST Clinical history: Shortness of breath Comparison: July 26, 2024 A single view of the chest demonstrates borderline cardiomegaly which is stable. The pulmonary vessels are normally distributed. The Lungs are clear. No consolidations or effusions are seen. Procedure Note Brooks Gresham MD - 07/29/[address] [id number] SINGLE VIEW OF THE CHEST Clinical history: Shortness of breath Comparison: July 26, 2024 A single view of the chest demonstrates borderline cardiomegaly which isstable. The pulmonary vessels are normally distributed. The Lungs areclear. No consolidations or effusions are seen. IMPRESSION: Stable chest, no acute findings. Ordered By: NIKKI WOLFE Interpreted By: Brooks Gresham MD, 07/29/2024 1:38 PM us Nikki Wolfe MD GENERAL IMAGING Final Result * EEG (07/28/2024 11:37 AM PARISH VISITOR) Narrative [facility] - 07/28/2024 11:37 AM PARISH VISITOR Tho Lilly MD 07/28/2024 11:37 AM Date of Service: 07/28/2024 Procedure: Spot EEG Indications: The indication of this EEG is for further seizure work up and rule out seizures. Details of Procedure: Conditions of Recording: This is a digital EEG performed using disc electrodes placed according to the International 10-20 system of electrode placement. Scalp to scalp and scalp to ear montages were used. Activation Procedures: Photic Stimulations. Results: When maximally aroused, the awake background consists of frequencies that primarily fall within the alpha range, 8 -10 Hz on average. The posterior dominant rhythm is well-formed, symmetric characterized by 9 Hz symmetric posterior rhythm averaging 20-40 V in amplitude and is present bilaterally during the awake period. The anterior-posterior gradient was well-formed. Drowsiness was evidenced by attenuation of the posterior dominant rhythm. Amplitudes are within normal range symmetric throughout. There is no significant asymmetry between the two hemispheres with regards to amplitudes, morphologies, or frequencies. Sleep architecture was observed with vertex and beta spindling. Photic stimulation did not elicit abnormalities. No definite interictal epileptiform discharges or seizures were observed. None of the movements documented by the tech were associated with abnormal EEG. Impression: - Normal EEG in the awake and drowsy state. - Some lead artifact in the left frontal F3 T3 C3 leads during this study. Comments: The findings indicate a normal awake and drowsy study with no evidence of interictal epileptiform discharges or seizures. The presence of lead artifact may affect interpretation but does not suggest any underlying pathology. If there is clinical suspicion for seizures, continue empiric treatment with a seizure medication. The absence of interictal epileptiform discharges does not exclude the possibility of a prior seizure or predisposition to future seizures. Tho White MD Epileptologist, Neurohospitalist Hansel Patel MD NEUROLOGY ORDERABLES Final R esult Performing Organization Address City/[facility]/ZIP Co de Phone Number [facility] [address] [place] [address], [place] [phone] * (ABNORMAL) TROPONIN, QUANT (07/26/2024 10:49 AM PARISH VISITOR) Only the most recent of10 resultswithin the time period is included. TROPONIN I HIGH SENSITIVITY 95(H) <79 ng/L 07/26/2024 11:29 AM PARISH VISITOR [facility] Comment: HIGH DOSES OF BIOTIN, TROPONIN-SPECIFIC AUTOANTIBODIES, AND ANTIBODY THERAPY CONTAINING HAMA MAY INTERFERE WITH THIS TEST RESULT. CORRELATION TO CLINICAL HISTORY AND PRESENTATION RECOMMENDED. 07/26/2024 10:4 9 AM PARISH VISITOR Ester Whitten MD LABORATORY Final Re sult Performing Organization Address City/[facility]/ZIP Co de Phone Number [facility] [address] [place] [address], * ECG 12 lead (07/26/2024 9:22 AM PARISH VISITOR) Only the most recent of4 resultswithin the time period is included. 07/26/2024 9:22 AM PARISH VISITOR Narrative [facility] RAD - 07/26/2024 12:02 PM PARISH VISITOR [address] Test Date: 2024-07-26 Pat Name: KEYANA POOL Department: 40 Room: [id number] Gender: Male Special Equipment Technician: : 1950 Requested By: ESTER WHITTEN Order Number: [id number] Tiburcio MD: Johnny Garcia Measurements Intervals [place] Rate: 84 P: 42 GA: 136 QRS: -43 QRSD: 154 T: 19 QT: 423 QTc: 503 Interpretive Statements SINUS RHYTHM LEFT AXIS DEVIATION [QRS AXIS < -30] INTRAVENTRICULAR CONDUCTION DELAY [130+ ms QRS DURATION] Compared to ECG 07/24/2024 11:28:48 Left-axis deviation now present Intraventricular conduction delay now present Right bundle-branch block no longer present Left anterior fascicular block no longer present T-wave abnormality no longer present Possible ischemia no longer present SH VISITOR Procedure Note Johnny Garcia MD - 07/26/[address] Test Date: 2024-07-26 Pat Name: KEYANA POOL Department: 40 Room: [facility] Gender: Male Special Equipment Technician: : 1950 Requested By: ESTER WHITTEN Order Number: [id number] Reading MD: Johnny Garcia Measurements Intervals [place] Rate: 84 P: 42 GA: 136 QRS: -43 QRSD: 154 T: 19 QT: 423 QTc: 503 Interpretive Statements SINUS RHYTHM LEFT AXIS DEVIATION [QRS AXIS < -30] INTRAVENTRICULAR CONDUCTION DELAY [130+ ms QRS DURATION] Compared to ECG 07/24/2024 11:28:48 Left-axis deviation now present Intraventricular conduction delay now present Right bundle-branch block no longer present Left anterior fascicular block no longer present T-wave abnormality no longer present Possible ischemia no longer present SH VISITOR us Ester Whitten MD ECG ORDERABLES Final Re sult [facility] RAD * (ABNORMAL) ARTERIAL BLOOD GAS (07/26/2024 8:10 AM PARISH VISITOR) Only the most recent of2 resultswithin the time period is included. PH ARTERIAL 7.42 7.35 - 7.45 07/26/2024 8:32 AM [facility] PCO2 31.0(L) 35.0 - 45.0 MMHG 07/26/2024 8:32 AM [facility] PO2 82.0(L) 83.0 - 108.0 MMHG 07/26/2024 8:32 AM [facility] TOTAL CO2 ARTERIAL 21.1 19.0 - 24.0 MMOL/L 07/26/2024 8:32 AM [facility] BASE DEFICIT 3.4(H) 0.0 - 3.0 MMOL/L 07/26/2024 8:32 AM [facility] O2 SATURATION 96 94.0 - 98.0 % 07/26/2024 8:32 AM [facility] BICARB ARTERIAL 20.1(L) 21.0 - 28.0 MMOL/L 07/26/2024 8:32 AM [facility] TRACY TEST TRACY TEST PERFORMED 07/26/2024 8:29 AM [facility] O2 ADMIN ARTERIAL 40 07/26/2024 8:29 AM [facility] DRAW SITE ARTERIAL LT RADIAL 07/26/2024 8:29 AM [facility] 07/26/2024 8:10 AM [facility] Ester Whitten MD LABORATORY Final Re sult [facility] [address] [place] [address], * (ABNORMAL) PRO-BRAIN NATRIURETIC PEPTIDE (07/26/2024 6:52 AM [facility]) Only the most recent of3 resultswithin the time period is included. PRO-B TYPE NATRIURETIC PEPTIDE 4,026(H) <125 PG/ML 07/26/2024 7:47 AM PARISH VISITOR [facility] Comment: CUT POINTS ESTABLISHED BY [employer]NATIONAL [employer] ON NT PROBNP (ICON) STUDY (2006). AGE INDEPENDENT: <300 PG/ML HAS A 99% NEGATIVE PREDICTIVE VALUE FOR EXCLUDING ACUTE CHF <50 YEARS: >450 PG/ML IS CONSISTENT WITH ACUTE CHF 50-75 YEARS: >900 PG/ML IS CONSISTENT WITH ACUTE CHF >75 YEARS: >1800 PG/ML IS CONSISTENT WITH ACUTE CHF IN PATIENTS WITH RENAL INSUFFICIENCY (GFR <60), >1200 PG/ML YIELDS A DIAGNOSTIC SENSITIVITY AND SPECIFICITY OF 89% AND 72% FOR ACUTE CHF. 07/26/2024 6:52 AM PARISH VISITOR Ester Whitten MD LABORATORY Final Re sult [facility] [address] [place] [address], * CTA HEAD+NECK (07/26/2024 5:39 AM PARISH VISITOR) Anatomical Region Laterality Modality Head, Neck Computed Tomogra phy 07/26/2024 5:52 AM PARISH VISITOR Impressions 07/26/2024 5:58 AM PARISH VISITOR IMPRESSION: 1. Moderate stenosis in the cavernous portions of internal carotid arteries bilaterally. 2. Focal high-grade stenosis distal right vertebral artery proximal to the basilar origin. There is however very diminutive appearance of the distal right vertebral artery overall which is likely congenital. Contribution to the basilar primarily comes from left vertebral artery. 3. Calcifications of distal left vertebral artery with moderate stenosis at level of foramen magnum. 4. No significant stenosis or occlusion of major intracranial arteries near [place] of [place] otherwise. 5. 50% stenosis of the proximal left internal carotid artery. 6. Less than 10% stenosis at the origin of the right internal carotid artery. 7. Bilateral pleural effusions partially visualized. 8. Diffuse interstitial thickening in the visualized lungs. Referred By: XAVIER SCHULTE Interpreted By: Scottie Trinidad MD, 07/26/2024 5:52 AM Narrative 07/26/2024 5:58 AM PARISH VISITOR [facility] [address] [place], [place] [address] Examination: CTA of the head and neck Exam Date/Time: 07/26/2024 5:18 AM Reason For Exam: Last known well 330am, change in neuro status Comparison: No prior CTA Technique: CT angiography of the head and neck was performed after intravenous injection of 100 cc Isovue-300. Additional 3-D reconstructions and postprocessing were performed independently by the radiologist on a separate dedicated 3-D workstation. A dose lowering technique was used for this procedure, which may include, but is not limited to, dose reduction technique, automated exposure control, iterative reconstruction, ALARA (As Low As Reasonably Achievable), or Image Gently techniques. NASCET guidelines utilized for ICA stenosis grading. Findings: CTA HEAD: Left vertebral artery dominance. Very diminutive distal end of right vertebral artery with focal high-grade stenosis. Most of the contribution to the basilar artery however, given the left vertebral artery. Calcifications of the left vertebral artery at level of foramen magnum with moderate stenosis. Persistent origin circulation of the left posterior cerebral artery. Bilateral posterior cerebral arteries normal in caliber throughout without focal stenosis or aneurysmal dilatation. Calcifications in the cavernous portions of bilateral internal carotid arteries. Moderate stenosis bilaterally resulting. Anterior cerebral arteries and middle cerebral arteries are normal in caliber throughout without focal stenosis or an years bowel dilatation. No evidence of intracranial vascular malformation. CTA neck: Left aortic arch. Origins of the great vessels from the aorta are patent. Visualized portion of bilateral subclavian arteries and brachiocephalic artery are patent. Calcifications at the distal common carotid arteries and proximal internal carotid arteries bilaterally. 50% stenosis of the proximal left internal carotid artery. Less than 10% stenosis at the origin of the right internal carotid artery. Remainder of distal internal carotid arteries, external carotid arteries, and common carotid arteries show no significant stenosis or aneurysmal dilatation. Bilateral pleural effusions partially visualized. Diffuse interstitial thickening bilaterally in the visualized lungs. Procedure Note Scottie Trinidad MD - 07/26/2024 [facility] [address] [place], [place] [address] Examination: CTA of the head and neck Exam Date/Time: 07/26/2024 5:18 AM Reason For Exam: Last known well 330am, change in neuro status Comparison: No prior CTA Technique: CT angiography of the head and neck was performed afterintravenous injection of 100 cc Isovue-300. Additional 3-D reconstructionsand postprocessing were performed independently by the radiologist on aseparate dedicated 3-D workstation. A dose lowering technique was used forthis procedure, which may include, but is not limited to, dose reductiontechnique, automated exposure control, iterative reconstruction, ALARA (AsLow As Reasonably Achievable), or Image Gently techniques. NASCETguidelines utilized for ICA stenosis grading. Findings: CTA HEAD: Left vertebral artery dominance. Very diminutive distal end ofright vertebral artery with focal high-grade stenosis. Most of thecontribution to the basilar artery however, given the left vertebralartery. Calcifications of the left vertebral artery at level of foramenmagnum with moderate stenosis. Persistent origin circulation of theleft posterior cerebral artery. Bilateral posterior cerebral arteriesnormal in caliber throughout without focal stenosis or aneurysmaldilatation. Calcifications in the cavernous portions of bilateralinternal carotid arteries. Moderate stenosis bilaterally resulting.Anterior cerebral arteries and middle cerebral arteries are normal incaliber throughout without focal stenosis or an years bowel dilatation.No evidence of intracranial vascular malformation. CTA neck: Left aortic arch. Origins of the great vessels from the aortaare patent. Visualized portion of bilateral subclavian arteries andbrachiocephalic artery are patent. Calcifications at the distal commoncarotid arteries and proximal internal carotid arteries bilaterally. 50%stenosis of the proximal left internal carotid artery. Less than 10%stenosis at the origin of the right internal carotid artery. Remainder ofdistal internal carotid arteries, external carotid arteries, and commoncarotid arteries show no significant stenosis or aneurysmal dilatation. Bilateral pleural effusions partially visualized. Diffuse interstitialthickening bilaterally in the visualized lungs. IMPRESSION: 1. Moderate stenosis in the cavernous portions of internal carotidarteries bilaterally. 2. Focal high-grade stenosis distal right vertebral artery proximal tothe basilar origin. There is however very diminutive appearance of thedistal right vertebral artery overall which is likely congenital.Contribution to the basilar primarily comes from left vertebral artery. 3. Calcifications of distal left vertebral artery with moderate stenosisat level of foramen magnum. 4. No significant stenosis or occlusion of major intracranial arteriesnear [place] of [place] otherwise. 5. 50% stenosis of the proximal left internal carotid artery. 6. Less than 10% stenosis at the origin of the right internal carotidartery. 7. Bilateral pleural effusions partially visualized. 8. Diffuse interstitial thickening in the visualized lungs. Referred By: XAVIER SCHULTE Interpreted By: Scottie Trinidad MD, 07/26/2024 5:52 AM Mervin Tabares MD CT Final Result * CT HEAD WO CON (07/26/2024 5:39 AM PARISH VISITOR) Only the most recent of3 resultswithin the time period is included. Anatomical Region Laterality Modality Head Computed Tomogra phy 07/26/2024 5:49 AM PARISH VISITOR Impressions 07/26/2024 5:51 AM PARISH VISITOR IMPRESSION: ===== 1. No acute intracranial abnormalities. 2. Atrophy and small vessel ischemic disease. Superimposed acute infarct not excluded. Referred By: XAVIER SCHULTE Interpreted By: Scottie Trinidad MD, 07/26/2024 5:49 AM Narrative 07/26/2024 5:51 AM PARISH VISITOR [address] [address] EXAMINATION: CT of the head EXAM DATE/TIME: 07/26/2024 5:18 AM REASON FOR EXAM: change in neuro status Last known well 330am COMPARISON: Head CT 07/15/2024 TECHNIQUE: Axial CT images of the brain are obtained from skull base through vertex without the use of IV contrast agent. A dose lowering technique was used for this procedure, which may include, but is not limited to, dose reduction technique, automated exposure control, iterative reconstruction, ALARA (As Low As Reasonably Achievable), or Image Gently techniques. FINDINGS: No acute hemorrhage or large territory infarct. Ventricles are minimally enlarged with prominent sulci bilaterally indicated mild symmetric parenchymal volume loss. There are minimal areas of scattered hypodensities in the periventricular deep white matter which are nonspecific but likely secondary to mild small vessel ischemic disease. 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 This is stable from prior study. There are no extra-axial fluid collections. There is no mass, mass effect, or midline shift. There is no depressed skull fracture. Visualized paranasal sinuses and mastoid air cells are clear. Visualized orbital contents are unremarkable. Benign falcine calcifications. ===== Procedure Note Scottie Trinidad MD - 07/26/[address] [address] EXAMINATION: CT of the head EXAM DATE/TIME: 07/26/2024 5:18 AM REASON FOR EXAM: change in neuro status Last known well 330am COMPARISON: Head CT 07/15/2024 TECHNIQUE: Axial CT images of the brain are obtained from skull basethrough vertex without the use of IV contrast agent. A dose loweringtechnique was used for this procedure, which may include, but is notlimited to, dose reduction technique, automated exposure control,iterative reconstruction, ALARA (As Low As Reasonably Achievable), orImage Gently techniques. FINDINGS: No acute hemorrhage or large territory infarct. Ventricles areminimally enlarged with prominent sulci bilaterally indicated mildsymmetric parenchymal volume loss. 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 This is stable fromprior study. There are no extra-axial fluid collections. There is nomass, mass effect, or midline shift. There is no depressed skullfracture. Visualized paranasal sinuses and mastoid air cells are clear.Visualized orbital contents are unremarkable. Benign falcinecalcifications. ===== IMPRESSION: ===== 1. No acute intracranial abnormalities. 2. Atrophy and small vessel ischemic disease. Superimposed acute infarctnot excluded. Referred By: XAVIER SCHULTE Interpreted By: Scottie Trinidad MD, 07/26/2024 5:49 AM Mervin Tabares MD CT Final Result * MRSA SCREENING (07/25/2024 10:45 AM PARISH VISITOR) Only the most recent of3 resultswithin the time period is included. SPEC DESCRIPTION NASAL 07/25/2024 10:43 AM PARISH VISITOR [facility] SPECIAL REQUESTS NO SPECIAL REQUEST 07/25/2024 10:43 AM PARISH VISITOR [facility] CULTURE RESULT NO METHICILLIN RESISTANT STAPHYLOCOCCUS AUREUS ISOLATED 07/26/2024 1:03 PM PARISH VISITOR [facility] SPECIMEN FROM INTERNAL NOSE / Unknown 07/25/2024 10:45 AM PARISH VISITOR 07/25/2024 10:52 AM PARISH VISITOR Sabrina Gonzales MD MICROBIOLOGY - GENERAL OR DERABLES Final Result [facility] [address] [place] [address], * PROCALCITONIN (PCT) (07/25/2024 7:11 AM PARISH VISITOR) Only the most recent of11 resultswithin the time period is included. Procalcitonin 0.05 0.00 - 0.49 NG/ML 07/25/2024 9:22 AM PARISH VISITOR [facility] 07/25/2024 7:11 AM PARISH VISITOR us Sabrina Gonzales MD LABORATORY Final Res ult [facility] [address] [place] [address], [place] [phone] * MAGNESIUM (07/23/2024 9:59 AM PARISH VISITOR) Only the most recent of11 resultswithin the time period is included. MAGNESIUM 2.1 1.8 - 2.4 MG/DL 07/23/2024 12:25 PM PARISH VISITOR [facility] 07/23/2024 9:59 AM PARISH VISITOR Sabrina Gonzales MD LABORATORY Final Res ult Performing Organization Address City/[facility]/ZIP Co de Phone Number [facility] [address] [place] [address], [place] [phone] * (ABNORMAL) URINALYSIS (07/22/2024 6:00 PM PARISH VISITOR) Only the most recent of3 resultswithin the time period is included. SPECIMEN TYPE URINE CLEAN CATCH 07/22/2024 5:59 PM PARISH VISITOR [facility] COLOR (U) YELLOW 07/22/2024 6:15 PM PARISH VISITOR [facility] TRANSPARENCY CLEAR 07/22/2024 6:15 PM PARISH VISITOR [facility] SPECIFIC GRAVITY (U) 1.026 1.001 - 1.030 07/22/2024 6:15 PM PARISH VISITOR [facility] U PH 5.0 5.0 - 9.0 07/22/2024 6:15 PM [facility] LEUKOCYTES (U) 25(A) NEGATIVE 07/22/2024 6:15 PM PARISH VISITOR [facility] NITRITES NEGATIVE NEGATIVE 07/22/2024 6:15 PM PARISH VISITOR [facility] PROTEIN RANDOM (U) NEGATIVE <30 MG/DL 07/22/2024 6:15 PM PARISH VISITOR [facility] GLUCOSE (U) NORMAL NORMAL MG/DL 07/22/2024 6:15 PM PARISH VISITOR [facility] KETONES MG/DL (U) NEGATIVE NEGATIVE MG/DL 07/22/2024 6:15 PM PARISH VISITOR [facility] UROBILINOGEN NORMAL NORMAL MG/DL 07/22/2024 6:15 PM PARISH VISITOR [facility] BILIRUBIN (U) NEGATIVE NEGATIVE MG/DL 07/22/2024 6:15 PM PARISH VISITOR [facility] BLOOD (U) NEGATIVE NEGATIVE 07/22/2024 6:15 PM [facility] MUCUS RARE /LPF 07/22/2024 6:15 PM [facility] WBC/HPF 9(H) <6 /HPF 07/22/2024 6:15 PM [facility] RBC/HPF 4 <6 /HPF 07/22/2024 6:15 PM PARISH VISITOR [facility] SQUAMOUS EPITHELIALS RARE /HPF 07/22/2024 6:15 PM [facility] URINE SPECIMEN OBTAINED BY CLEAN CATCH PROCEDURE / Unknown 07/22/2024 6:00 PM [facility] Sabrina Gonzales MD URINE ORDERABLES Final Re sult [facility] [address] [place] [address], * LACTIC ACID - SINGLE (07/22/2024 10:18 AM PARISH VISITOR) Only the most recent of2 resultswithin the time period is included. LACTIC ACID VENOUS 0.8 0.4 - 2.0 MMOL/L 07/22/2024 11:00 AM PARISH VISITOR [facility] 07/22/2024 10:1 8 AM PARISH VISITOR us Sabrina Gonzales MD LABORATORY Final Res ult [facility] [address] [place] [id number], * AMMONIA (07/22/2024 10:18 AM PARISH VISITOR) Only the most recent of2 resultswithin the time period is included. AMMONIA 26 11 - 32 UMOL/L 07/22/2024 10:49 AM PARISH VISITOR [facility] 07/22/2024 10:1 8 AM PARISH VISITOR Sabrina Gonzales MD LABORATORY Final Res ult [facility] [address] [place] [address], * CULTURE, BACTERIA, BLOOD (07/22/2024 10:17 AM PARISH VISITOR) Only the most recent of2 resultswithin the time period is included. SPEC DESCRIPTION BLOOD 07/22/2024 9:57 AM PARISH VISITOR [facility] SPECIAL REQUESTS NO SPECIAL REQUEST 07/22/2024 9:57 AM PARISH VISITOR [facility] CULTURE RESULT NO GROWTH 5 DAYS 07/27/2024 10:45 AM PARISH VISITOR [facility] BLOOD SPECIMEN OBTAINED FOR BLOOD CULTURE / Unknown 07/22/2024 10:17 AM PARISH VISITOR 07/22/2024 10:18 AM PARISH VISITOR us Sabrina Gonzales MD MICROBIOLOGY - GENERAL OR DERABLES Final Result [facility] [address] [place] [address], * XA LHC POSS (07/21/2024 6:25 PM PARISH VISITOR) Anatomical Region Laterality Modality Cardiac Refined Syrup Operator 07/21/2024 6:00 PM PARISH VISITOR Roc Fulton MD SEWING MACHINE TESTER Final Result * (ABNORMAL) POCT ACTIVATED CLOTTING TIME - ISTAT DOCKED DEVICE (07/21/2024 6:02 PM PARISH VISITOR) Only the most recent of2 resultswithin the time period is included. ACTIVATED CLOTTING TIME (ACT) 263(H) 74 - 125 SEC 07/21/2024 6:14 PM PARISH VISITOR [facility] WHISKEY REGAUGER CODE 121,731 07/21/2024 6:14 PM PARISH VISITOR [facility] 07/21/2024 6:02 PM PARISH VISITOR Jesus Bocanegra MD POCT ORDERABLES - DEVIC E Final Result [facility] [address] [place] [address], * (ABNORMAL) HEMOGLOBIN AND HEMATOCRIT (07/21/2024 5:57 PM PARISH VISITOR) HGB 7.6(L) 14.0 - 18.0 G/DL 07/21/2024 6:23 PM PARISH VISITOR [facility] HCT 23.7(L) 43.0 - 54.0 % 07/21/2024 6:23 PM PARISH VISITOR [facility] 07/21/2024 5:57 PM PARISH VISITOR Jasmeet Leavitt MD LABORATORY Final Result [facility] [address] [place] [address], [place] [phone] * HEPARIN, ANTI XA, UFH (07/21/2024 4:50 AM PARISH VISITOR) Only the most recent of11 resultswithin the time period is included. HEPARIN ANTI XA UFH 0.33 0.30 - 0.70 IU/ML 07/21/2024 5:32 AM PARISH VISITOR [facility] Comment: UFH Therapeutic Anti Xa Ranges: Medical Therapeutic Range: 0.30 - 0.70 IU/mL Cardiac Therapeutic Range: 0.30 - 0.50 IU/mL Neuro Therapeutic Range: 0.20 - 0.40 IU/mL 07/21/2024 4:50 AM PARISH VISITOR Sabrina Lopez DO LABORATORY Final Res ult Performing Organization Address City/[facility]/ZIP Co de Phone Number [facility] [address] [place] [address], [place] [phone] * (ABNORMAL) IRON SAT PANEL (IRON,IBC,%SAT) (07/21/2024 4:35 AM PARISH VISITOR) Only the most recent of2 resultswithin the time period is included. IRON 40(L) 65.0 - 175.0 MCG/DL 07/21/2024 8:50 PM PARISH VISITOR [facility] IRON BINDING CAPACITY 172(L) 250 - 450 MCG/DL 07/21/2024 8:50 PM PARISH VISITOR [facility] IRON SATURATION 23 20 - 55 % 8:50 PM PARISH VISITOR [facility] 07/21/2024 4:35 AM PARISH VISITOR Jasmeet Leavitt MD LABORATORY Final Result [facility] [facility] [address] [place] [address], [place] [phone] * FERRITIN (07/21/2024 4:35 AM PARISH VISITOR) Only the most recent of2 resultswithin the time period is included. FERRITIN 280.2 8.0 - 388.0 NG/ML 07/21/2024 8:54 PM PARISH VISITOR [facility] 07/21/2024 4:35 AM PARISH VISITOR Jasmeet Leavitt MD LABORATORY Final Result Performing Organization Address City/[facility] Co de Phone Number [facility] [address] [place] [address], [place] [phone] * CT CHEST WO CON (07/20/2024 3:12 PM PARISH VISITOR) Anatomical Region Laterality Modality Chest Computed Tomogra phy 07/20/2024 11:5 6 PM PARISH VISITOR Impressions 07/21/2024 12:01 AM PARISH VISITOR IMPRESSION: 1. Scattered patchy groundglass opacities throughout both lungs, suggesting multifocal pneumonia. 2. Coronary artery calcifications. 3. Prominence of the main pulmonary artery suggesting elevated pulmonary arterial pressures. Referred By: XAVIER SCHULTE Interpreted By: Michoacano James DO, 07/20/2024 11:56 PM Narrative 07/21/2024 12:01 AM PARISH VISITOR [facility] [address] [place], [place] [address] EXAMINATION: CT CHEST WO CON EXAM DATE: 07/20/2024 3:04 PM CLINICAL HISTORY: Persistent hypoxia. COMPARISON: Chest radiographs 07/17/2024 and 07/08/2024 and CTA chest 05/23/2022. TECHNIQUE: Axial unenhanced CT of the chest was performed. Coronal and sagittal reformatted images were obtained and reviewed. A radiation dose lowering technique was used for this procedure, which may include, but is not limited to, dose reduction technique, automated exposure control, the use of iterative reconstruction, ALARA (As Low As Reasonably Achievable) techniques, and Image Gently techniques. FINDINGS: MEDIASTINUM: The heart is normal in size without pericardial effusion. There are coronary artery calcifications. There are atherosclerotic calcifications of the thoracic aorta without aneurysm formation. There is prominence of the main pulmonary artery measuring approximately 31 mm in diameter, suggesting elevated pulmonary arterial pressures. There is no mediastinal adenopathy or fluid collection. There is no internal mammary chain, axillary, or supraclavicular adenopathy. PLEURAL SPACES: There is no pleural effusion or pneumothorax. LUNGS: There are scattered patchy groundglass opacities throughout both lungs, most prominent in the right upper lobe and left lower lobe suggesting multifocal pneumonia. There are also linear opacities in the lower lobes suggesting atelectasis. There are scattered calcified granulomas. ABDOMEN: There are atherosclerotic calcifications of the upper abdominal aorta and its branches. MUSCULOSKELETAL: Degenerative arthritis affects the visualized lower cervical spine. Multilevel degenerative disc disease affects the thoracic and visualized upper lumbar spine is prominent at T7-8. Facet joint osteoarthritis affects the upper lumbar spine. Osteoarthritis affects the glenohumeral joints, right greater than left, with suture anchors in the right humeral head reflecting prior rotator cuff repair. Procedure Note Michoacano James DO - 07/21/2024 [facility] [address] [place], [place] [address] EXAMINATION: CT CHEST WO CON EXAM DATE: 07/20/2024 3:04 PM CLINICAL HISTORY: Persistent hypoxia. COMPARISON: Chest radiographs 07/17/2024 and 07/08/2024 and CTA chest05/23/2022. TECHNIQUE: Axial unenhanced CT of the chest was performed. Coronal andsagittal reformatted images were obtained and reviewed. A radiation doselowering technique was used for this procedure, which may include, but isnot limited to, dose reduction technique, automated exposure control, theuse of iterative reconstruction, ALARA (As Low As Reasonably Achievable)techniques, and Image Gently techniques. FINDINGS: MEDIASTINUM: The heart is normal in size without pericardial effusion. There arecoronary artery calcifications. There are atherosclerotic calcificationsof the thoracic aorta without aneurysm formation. There is prominence ofthe main pulmonary artery measuring approximately 31 mm in diameter,suggesting elevated pulmonary arterial pressures. There is no mediastinaladenopathy or fluid collection. There is no internal mammary chain,axillary, or supraclavicular adenopathy. PLEURAL SPACES: There is no pleural effusion or pneumothorax. LUNGS: There are scattered patchy groundglass opacities throughout both lungs,most prominent in the right upper lobe and left lower lobe suggestingmultifocal pneumonia. There are also linear opacities in the lower lobessuggesting atelectasis. There are scattered calcified granulomas. ABDOMEN: There are atherosclerotic calcifications of the upper abdominal aorta andits branches. MUSCULOSKELETAL: Degenerative arthritis affects the visualized lower cervical spine.Multilevel degenerative disc disease affects the thoracic and visualizedupper lumbar spine is prominent at T7-8. Facet joint osteoarthritisaffects the upper lumbar spine. Osteoarthritis affects the glenohumeraljoints, right greater than left, with suture anchors in the right humeralhead reflecting prior rotator cuff repair. IMPRESSION: 1. Scattered patchy groundglass opacities throughout both lungs,suggesting multifocal pneumonia. 2. Coronary artery calcifications. 3. Prominence of the main pulmonary artery suggesting elevated pulmonaryarterial pressures. Referred By: XAVIER SCHULTE Interpreted By: Michoacano James DO, 07/20/2024 11:56 PM Sabrina Lopez DO CT Final Res ult * PHOSPHORUS, INORGANIC PHOSPHATE (07/19/2024 5:40 AM PARISH VISITOR) Only the most recent of5 resultswithin the time period is included. PHOSPHORUS 3.5 2.5 - 4.9 MG/DL 07/19/2024 6:17 AM PARISH VISITOR [facility] 07/19/2024 5:40 AM PARISH VISITOR Hansel Patel MD LABORATORY Final Result [facility] [address] [place] [address], [place] [phone] * NM LUNG PERFUSION (07/18/2024 2:19 PM PARISH VISITOR) Anatomical Region Laterality Modality Chest Nuclear Medicine 07/18/2024 3:01 PM PARISH VISITOR Impressions 07/18/2024 3:05 PM PARISH VISITOR IMPRESSION: Perfusion only study reveals near uniform distribution of activity bilaterally with no segmental defects. Referred By: XAVIER SCHULTE Interpreted By: Eric Ohara MD, 07/18/2024 3:01 PM Narrative 07/18/2024 3:05 PM PARISH VISITOR [address] [address] Perfusion Scintigraphy Exam date: 07/18/2024. Indications: 73-year-old male with shortness of breath. Radiopharmaceutical: 5.6 mCi Tc-99m MAA IV. Comparison: -AP supine chest film dated 07/17/2024 at 1226 hours. -Pulmonary perfusion scintigraphy dated 08/22/2021. Findings: A ventilation study could not be performed to the patient's clinical condition. The perfusion images demonstrate near uniform distribution of activity bilaterally with no segmental defects. The findings are nearly identical to those obtained on the 08/22/2021 pulmonary perfusion scintigraphy study. Procedure Note Eric Ohara MD - 07/18/[address] [address] Perfusion Scintigraphy Exam date: 07/18/2024. Indications: 73-year-old male with shortness of breath. Radiopharmaceutical: 5.6 mCi Tc-99m MAA IV. Comparison: -AP supine chest film dated 07/17/2024 at 1226 hours. -Pulmonary perfusion scintigraphy dated 08/22/2021. Findings: A ventilation study could not be performed to the patient's clinicalcondition. The perfusion images demonstrate near uniform distribution of activitybilaterally with no segmental defects. The findings are nearly identicalto those obtained on the 08/22/2021 pulmonary perfusion scintigraphystudy. IMPRESSION: Perfusion only study reveals near uniform distribution of activitybilaterally with no segmental defects. Referred By: XAVIER SCHULTE Interpreted By: Eric Ohara MD, 07/18/2024 3:01 PM Sabrina Lopez DO NUC MED Final Res ult * (ABNORMAL) POTASSIUM, SERUM (07/17/2024 5:21 PM PARISH VISITOR) POTASSIUM S/P/B 3.2(L) 3.5 - 5.1 MMOL/L 07/17/2024 5:50 PM PARISH VISITOR [facility] 07/17/2024 5:21 PM PARISH VISITOR Hansel Patel MD LABORATORY Final Result [facility] [address] [place] [address], [place] [phone] * MRI BRAIN WWO CON (07/16/2024 9:07 PM PARISH VISITOR) Anatomical Region Laterality Modality Head Magnetic Resonan ce 07/16/2024 9:20 PM PARISH VISITOR Impressions 07/16/2024 9:30 PM PARISH VISITOR IMPRESSION: 1. No acute infarct or intracranial mass lesion. 2. Other chronic or nonurgent findings as described above. Referred By: XAVIER SCHULTE Interpreted By: Duane Pina MD, 07/16/2024 9:20 PM Narrative 07/16/2024 9:30 PM PARISH VISITOR [place] [address] INDICATION: Stroke EXAMINATION: MRI brain with and without contrast. TECHNIQUE: Multisequence multiplanar imaging was performed before and after administration of 16 cc dotarem intravenously without adverse event. DATE/TIME: 07/16/2024 8:44 PM COMPARISON: 07/09/2024, CT 07/15/2024 FINDINGS: There is no evidence of acute infarct or restricted diffusion. Motion artifact mildly degrades evaluation of the postcontrast, however no definite evidence of abnormal enhancement within the brain or meninges. There is no evidence of intracranial mass, mass effect or midline shift. Stable chronic encephalomalacia in the right anterior temporal lobe. There is mild volume loss with enlargement of the ventricles and hemispheric sulci. The proximal portions of the major intracranial arterial flow voids are grossly patent. No abnormal extra-axial collections identified. Gradient images reveal stable tiny foci of old hemorrhage in the right parietal lobe.. The craniocervical junction, sellar content, and pineal region appear unremarkable. Mastoid air cells, paranasal sinuses, and images of the orbits/globes are unremarkable. Procedure Note Duane Pina MD - 07/16/2024 [place] [address] INDICATION: Stroke EXAMINATION: MRI brain with and without contrast. TECHNIQUE: Multisequence multiplanar imaging was performed before andafter administration of 16 cc dotarem intravenously without adverseevent. DATE/TIME: 07/16/2024 8:44 PM COMPARISON: 07/09/2024, CT 07/15/2024 FINDINGS: There is no evidence of acute infarct or restricted diffusion. Motionartifact mildly degrades evaluation of the postcontrast, however nodefinite evidence of abnormal enhancement within the brain or meninges.There is no evidence of intracranial mass, mass effect or midline shift.Stable chronic encephalomalacia in the right anterior temporal lobe.There is mild volume loss with enlargement of the ventricles andhemispheric sulci. The proximal portions of the major intracranialarterial flow voids are grossly patent. No abnormal extra-axialcollections identified. Gradient images reveal stable tiny foci of oldhemorrhage in the right parietal lobe.. The craniocervical junction,sellar content, and pineal region appear unremarkable. Mastoid air cells,paranasal sinuses, and images of the orbits/globes are unremarkable. IMPRESSION: 1. No acute infarct or intracranial mass lesion. 2. Other chronic or nonurgent findings as described above. Referred By: XAVIER SCHULTE Interpreted By: Duane Pina MD, 07/16/2024 9:20 PM Hansel Patel MD MRI Final Result * (ABNORMAL) BASIC METABOLIC PANEL (07/16/2024 4:25 AM PARISH VISITOR) Only the most recent of3 resultswithin the time period is included. GLUCOSE 283(H) 70 - 99 MG/DL 07/16/2024 5:20 AM [facility] BUN 59(H) 7 - 18 MG/DL 07/16/2024 5:20 AM [facility] CREATININE S/P/B 2.63(H) 0.7 - 1.3 MG/DL 07/16/2024 5:20 AM [facility] SODIUM S/P/B 144 136 - 145 MMOL/L 07/16/2024 5:20 AM [facility] POTASSIUM S/P/B 3.3(L) 3.5 - 5.1 MMOL/L 07/16/2024 5:20 AM [facility] CHLORIDE S/P/B 113 97 - 115 MMOL/L 07/16/2024 5:20 AM [facility] CO2 23.9 21 - 32 MMOL/L 07/16/2024 5:20 AM [facility] CALCIUM S/P/B 9.1 8.5 - 10.1 MG/DL 07/16/2024 5:20 AM PARISH VISITOR [facility] ANION GAP 7.1 2 - 10 MMOL/L 07/16/2024 5:20 AM [facility] BUN CREATININE RATIO 22.4 6 - 26 07/16/2024 5:20 AM [facility] GFR ESTIMATE 25(L) >90 ML/MIN/1.7 3 M2 07/16/2024 5:20 AM [facility] Comment: NOTE: eGFR is not calculated for patients <18 years of age or gender unknown. This is an estimated GFR calculation using the new CKD EPI creatinine equation without race and so does not require a correction factor for race. This estimated GFR should not be used for calculating drug doses. 07/16/2024 4:25 AM PARISH VISITOR Nicole Brown MD LABORATORY Final Result [facility] [address] [place] [address], [place] [phone] * PARTIAL THROMBOPLASTIN TIME,PTT (07/16/2024 1:55 AM PARISH VISITOR) PTT 25.4 25.1 - 36.5 SEC 07/16/2024 2:44 AM PARISH VISITOR [facility] 07/16/2024 1:55 AM PARISH VISITOR Ester Whitten MD LABORATORY Final Re sult [facility] [address] [place] [address], [place] [phone] * (ABNORMAL) PROTIME/INR, VENOUS (07/16/2024 1:55 AM PARISH VISITOR) Only the most recent of2 resultswithin the time period is included. PROTIME 13.4(H) 10.2 - 12.9 SEC 07/16/2024 2:44 AM PARISH VISITOR [facility] INR 1.2 07/16/2024 2:44 AM PARISH VISITOR [facility] Comment: Recommended INR Therapeutic Goals: 2.0-3.0 Routine Therapy 2.5-3.5 Mechanical Prosthetic Valves (High Risk) 07/16/2024 1:55 AM PARISH VISITOR Ester Whitten MD LABORATORY Final Re sult [facility] [address] [place] [address], * EEG (07/10/2024 2:04 PM PARISH VISITOR) Narrative [facility] - 07/10/2024 2:04 PM PARISH VISITOR Tho Lilly MD 07/10/2024 2:05 PM Date of Service: 07/10/24 Procedure: Spot EEG Duration: 20-40min study Indications: The indication of this EEG is for further seizure work up and rule out seizures. Details of Procedure: Conditions of Recording: This is a digital EEG performed using disc electrodes placed according to the International 10-20 system of electrode placement. Scalp to scalp and scalp to ear montages were used. Activation Procedures: Photic Stimulations Results: When maximally aroused, the awake background consists of frequencies that primarily fall within the alpha range, 8-10 Hz on average. The posterior dominant rhythm is well-formed, symmetric characterized by 9 Hz symmetric posterior rhythm averaging 20-40 uV in amplitude and is present bilaterally during the awake period. There was an appropriate admixture of frequencies and the anterior-posterior gradient was well-formed. Drowsiness was evidenced by attenuation of the posterior dominant rhythm. Amplitudes are within normal range symmetric throughout. There is no significant asymmetry between the 2 hemispheres with regards to amplitudes, morphologies, or frequencies. Photic stimulation did not elicit abnormalities. Focal slowing was noted over the left temporal area. However, significant lead artifact over the left temporal area limits interpretation of the study. No definite interictal epileptiform discharges or seizures were observed. None of the movements documented by the tech were associated with abnormal EEG. Impression: - Abnormal EEG in the awake and drowsy state - Focal slowing over the left temporal area, which may represent a focal abnormality or artifact - Significant lead artifact over left temporal area limiting interpretation of the study Comments: The focal slowing observed over the left temporal area could potentially indicate focal neuronal dysfunction in this region. However, the presence of significant lead artifact in the same area limits the interpretation of this finding. It is difficult to definitively determine whether the slowing represents a true physiological abnormality or is an artifact-related phenomenon. If there is clinical suspicion for seizures, continue empiric treatment with a seizure medication. The absence of interictal epileptiform discharges does not exclude the possibility of a prior seizure or of the predisposition to future seizures. A repeat EEG with careful attention to electrode placement and impedance, particularly in the left temporal region, may be considered to clarify the nature of the observed slowing and to rule out artifact. Tho White MD Epileptologist, Neurohospitalist Jennifer Arroyo MD NEUROLOGY ORDERABLES [facility] al Result [facility] [address] [place] [address], [place] [phone] * (ABNORMAL) HEMOGLOBIN, GLYCOSYLATED (07/10/2024 7:00 AM PARISH VISITOR) Only the most recent of2 resultswithin the time period is included. HGB A1C 8.4(H) <5.7 % 07/10/2024 10:01 AM PARISH VISITOR [facility] Comment: ADA GUIDELINES 2010 5.7 TO 6.4% INCREASED RISK OF DIABETES > OR = 6.5% CONSISTENT WITH DIABETES ESTIMATED AVG GLUCOSE 194 mg/dL 07/10/2024 10:01 AM PARISH VISITOR [facility] 07/10/2024 7:00 AM PARISH VISITOR Padmaja Leigh MD LABORATORY Final Result [facility] [address] [place] [address], [place] [phone] * (ABNORMAL) KEPPRA LEVEL (07/10/2024 7:00 AM PARISH VISITOR) KEPPRA 49.5(H) 6.0 - 46.0 mcg/mL 07/13/2024 8:05 PM PARISH VISITOR [facility] Comment: Brivaracetam (Briviact(R), Rikelta(R)) exhibits significant cross-reactivity in the Levetiracetam (Keppra(R), Spritam(R)) immunoassay. If Brivaracetam has been prescribed, order test code 12383 Levetiracetam by LCMSMS. Test Performed by [employer] [facility], [facility], [address] [place] [address] Zaki Beard M.D., Ph.D., Director of Laboratories , [facility] [id number] 07/10/2024 7:00 AM PARISH VISITOR Padmaja Leigh MD LABORATORY Final Result Performing Organization Address City/[facility]/ZIP Co de Phone Number [place] [address] , * MRA NECK WO CON (07/09/2024 7:13 PM PARISH VISITOR) Anatomical Region Laterality Modality Neck Magnetic Resonan ce 07/09/2024 7:53 PM PARISH VISITOR Impressions 07/09/2024 8:00 PM PARISH VISITOR IMPRESSION: 1. No definite large vessel intracranial arterial occlusion identified. 2. No hemodynamically significant stenosis in the visualized carotid and vertebral arteries in the neck. 3. MRA assessment somewhat degraded by motion and artifact. Referred By: VERÓNICA HUNTER Interpreted By: Fer August MD, 07/09/2024 7:53 PM Narrative 07/09/2024 8:00 PM PARISH VISITOR [address] [address] INDICATION: Slurred speech. TIA. EXAMINATION: MRA of the neck and head without contrast. TECHNIQUE: Unenhanced MRA examinations of the neck and head were performed. Both the source images and 3-D/MIP images were reviewed. Percent carotid stenosis measured per NASCET criteria. COMPARISON: CTA 10/08/2021 FINDINGS: MRA NECK: Assessment is somewhat limited by motion and artifact. Aorta and great vessels: Classic 3 vessel aortic arch origin anatomy. Visualized portions of the mediastinal great vessels are grossly patent. Right carotid: No hemodynamically significant stenosis suggested, though motion and artifact somewhat degrade assessment.. Left carotid: No hemodynamically significant stenosis suggested, though motion and artifact somewhat degrade assessment.. Right vertebral artery: Developmentally smaller in caliber than the left. No significant stenosis. Left vertebral artery: No significant stenosis. MRA head: Image quality is degraded by motion and artifact. Mild to moderate narrowing of the supraclinoid ICA segment suggested. Otherwise the intracranial ICA segments and proximal portions of the anterior and middle cerebral arteries are patent. Anterior communicating artery is patent. Posterior circulation is left dominant. Basilar artery patent and without significant stenosis to the terminus. Moderate stenosis suggested at the left CREDIT ANALYST P1/P2 segment junction. Proximal portions of the posterior cerebral arteries, superior cerebellar arteries, and PICA branches are patent. Left posterior communicating artery patent. Tiny right posterior communicating artery patent. Procedure Note Fer August MD - 07/09/[address] [address] INDICATION: Slurred speech. TIA. EXAMINATION: MRA of the neck and head without contrast. TECHNIQUE: Unenhanced MRA examinations of the neck and head were performed. Both thesource images and 3-D/MIP images were reviewed. Percent carotid stenosismeasured per NASCET criteria. COMPARISON: CTA 10/08/2021 FINDINGS: MRA NECK: Assessment is somewhat limited by motion and artifact. Aorta and great vessels: Classic 3 vessel aortic arch origin anatomy.Visualized portions of the mediastinal great vessels are grossly patent. Right carotid: No hemodynamically significant stenosis suggested, thoughmotion and artifact somewhat degrade assessment.. Left carotid: No hemodynamically significant stenosis suggested, thoughmotion and artifact somewhat degrade assessment.. Right vertebral artery: Developmentally smaller in caliber than the left.No significant stenosis. Left vertebral artery: No significant stenosis. MRA head: Image quality is degraded by motion and artifact. Mild to moderatenarrowing of the supraclinoid ICA segment suggested. Otherwise theintracranial ICA segments and proximal portions of the anterior and middlecerebral arteries are patent. Anterior communicating artery is patent. Posterior circulation is left dominant. Basilar artery patent and withoutsignificant stenosis to the terminus. Moderate stenosis suggested at theleft CREDIT ANALYST P1/P2 segment junction. Proximal portions of the posteriorcerebral arteries, superior cerebellar arteries, and PICA branches arepatent. Left posterior communicating artery patent. Tiny right posteriorcommunicating artery patent. IMPRESSION: 1. No definite large vessel intracranial arterial occlusion identified. 2. No hemodynamically significant stenosis in the visualized carotid andvertebral arteries in the neck. 3. MRA assessment somewhat degraded by motion and artifact. Referred By: VERÓNICA HUNTER Interpreted By: Fer August MD, 07/09/2024 7:53 PM us Jennifer Arroyo MD MRI Final Re sult * MRA HEAD WO CON (07/09/2024 7:13 PM PARISH VISITOR) Anatomical Region Laterality Modality Head Magnetic Resonan ce 07/09/2024 7:53 PM PARISH VISITOR Impressions 07/09/2024 8:00 PM PARISH VISITOR IMPRESSION: 1. No definite large vessel intracranial arterial occlusion identified. 2. No hemodynamically significant stenosis in the visualized carotid and vertebral arteries in the neck. 3. MRA assessment somewhat degraded by motion and artifact. Referred By: VERÓNICA HUNTER Interpreted By: Fer August MD, 07/09/2024 7:53 PM Narrative 07/09/2024 8:00 PM PARISH VISITOR [address] [address] INDICATION: Slurred speech. TIA. EXAMINATION: MRA of the neck and head without contrast. TECHNIQUE: Unenhanced MRA examinations of the neck and head were performed. Both the source images and 3-D/MIP images were reviewed. Percent carotid stenosis measured per NASCET criteria. COMPARISON: CTA 10/08/2021 FINDINGS: MRA NECK: Assessment is somewhat limited by motion and artifact. Aorta and great vessels: Classic 3 vessel aortic arch origin anatomy. Visualized portions of the mediastinal great vessels are grossly patent. Right carotid: No hemodynamically significant stenosis suggested, though motion and artifact somewhat degrade assessment.. Left carotid: No hemodynamically significant stenosis suggested, though motion and artifact somewhat degrade assessment.. Right vertebral artery: Developmentally smaller in caliber than the left. No significant stenosis. Left vertebral artery: No significant stenosis. MRA head: Image quality is degraded by motion and artifact. Mild to moderate narrowing of the supraclinoid ICA segment suggested. Otherwise the intracranial ICA segments and proximal portions of the anterior and middle cerebral arteries are patent. Anterior communicating artery is patent. Posterior circulation is left dominant. Basilar artery patent and without significant stenosis to the terminus. Moderate stenosis suggested at the left CREDIT ANALYST P1/P2 segment junction. Proximal portions of the posterior cerebral arteries, superior cerebellar arteries, and PICA branches are patent. Left posterior communicating artery patent. Tiny right posterior communicating artery patent. Procedure Note Fer August MD - 07/09/[address] [address] INDICATION: Slurred speech. TIA. EXAMINATION: MRA of the neck and head without contrast. TECHNIQUE: Unenhanced MRA examinations of the neck and head were performed. Both thesource images and 3-D/MIP images were reviewed. Percent carotid stenosismeasured per NASCET criteria. COMPARISON: CTA 10/08/2021 FINDINGS: MRA NECK: Assessment is somewhat limited by motion and artifact. Aorta and great vessels: Classic 3 vessel aortic arch origin anatomy.Visualized portions of the mediastinal great vessels are grossly patent. Right carotid: No hemodynamically significant stenosis suggested, thoughmotion and artifact somewhat degrade assessment.. Left carotid: No hemodynamically significant stenosis suggested, thoughmotion and artifact somewhat degrade assessment.. Right vertebral artery: Developmentally smaller in caliber than the left.No significant stenosis. Left vertebral artery: No significant stenosis. MRA head: Image quality is degraded by motion and artifact. Mild to moderatenarrowing of the supraclinoid ICA segment suggested. Otherwise theintracranial ICA segments and proximal portions of the anterior and middlecerebral arteries are patent. Anterior communicating artery is patent. Posterior circulation is left dominant. Basilar artery patent and withoutsignificant stenosis to the terminus. Moderate stenosis suggested at theleft CREDIT ANALYST P1/P2 segment junction. Proximal portions of the posteriorcerebral arteries, superior cerebellar arteries, and PICA branches arepatent. Left posterior communicating artery patent. Tiny right posteriorcommunicating artery patent. IMPRESSION: 1. No definite large vessel intracranial arterial occlusion identified. 2. No hemodynamically significant stenosis in the visualized carotid andvertebral arteries in the neck. 3. MRA assessment somewhat degraded by motion and artifact. Referred By: VERÓNICA HUNTER Interpreted By: Fer August MD, 07/09/2024 7:53 PM us Jennifer Arroyo MD MRI Final Re sult * MRI BRAIN WO CON (07/09/2024 7:00 PM PARISH VISITOR) Only the most recent of2 resultswithin the time period is included. Anatomical Region Laterality Modality Head Magnetic Resonan ce 07/09/2024 7:50 PM PARISH VISITOR Impressions 07/09/2024 7:53 PM PARISH VISITOR IMPRESSION: 1. No acute intracranial abnormalities identified. No acute infarct, intracranial mass, or midline shift. 2. 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 3. Stable chronic encephalomalacia involving the anterior right temporal lobe, probably from prior infarct versus other remote insults. Referred By: VERÓNICA HUNTER Interpreted By: Fer August MD, 07/09/2024 7:50 PM Narrative 07/09/2024 7:53 PM PARISH VISITOR [place] [address] INDICATION: Slurred speech. Concern for TIA. EXAMINATION: MRI brain without contrast. TECHNIQUE: Multiplanar and multisequence MRI images of the brain were obtained without contrast. COMPARISON: Brain MRI 07/07/2024 FINDINGS: No diffusion restriction or evidence of acute infarct. Patchy foci of FLAIR hyperintensity again seen in the hemispheric white matter, likely due to small vessel disease. Stable chronic encephalomalacia involving the anterior right temporal lobe. 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 No intracranial mass, mass effect, or midline shift. Mild volume loss with prominence of the ventricles and extra-axial/subarachnoid spaces. No extra-axial collections. Proximal portions of the major intracranial arterial flow voids are patent. No hemorrhagic foci of susceptibility seen on gradient echo images. Craniocervical junction, sellar content, and pineal region are unremarkable. Partially imaged degenerative changes in the cervical spine. Mastoid air cells clear. Post surgical and inflammatory changes noted in the paranasal sinuses. Visualized orbits unremarkable. Procedure Note Fer August MD - 07/09/2024 [place] [address] INDICATION: Slurred speech. Concern for TIA. EXAMINATION: MRI brain without contrast. TECHNIQUE: Multiplanar and multisequence MRI images of the brain wereobtained without contrast. COMPARISON: Brain MRI 07/07/2024 FINDINGS: No diffusion restriction or evidence of acute infarct. Patchy foci ofFLAIR hyperintensity again seen in the hemispheric white matter, likelydue to small vessel disease. Stable chronic encephalomalacia involving theanterior right temporal lobe. 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 Nointracranial mass, mass effect, or midline shift. Mild volume loss withprominence of the ventricles and extra- axial/subarachnoid spaces. Noextra-axial collections. Proximal portions of the major intracranialarterial flow voids are patent. No hemorrhagic foci of susceptibility seenon gradient echo images. Craniocervical junction, sellar content, andpineal region are unremarkable. Partially imaged degenerative changes inthe cervical spine. Mastoid air cells clear. Post surgical andinflammatory changes noted in the paranasal sinuses. Visualized orbitsunremarkable. IMPRESSION: 1. No acute intracranial abnormalities identified. No acute infarct,intracranial mass, or midline shift. 2. 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 3. Stable chronic encephalomalacia involving the anterior right temporallobe, probably from prior infarct versus other remote insults. Referred By: VERÓNICA HUNTER Interpreted By: Fer August MD, 07/09/2024 7:50 PM us Jennifer Arroyo MD MRI Final Re sult * XR SHOULDER LT 3V (07/09/2024 4:53 PM PARISH VISITOR) Anatomical Region Laterality Modality Shoulder Radiographic Rozina ging 07/09/2024 4:43 PM PARISH VISITOR Impressions 07/09/2024 4:45 PM PARISH VISITOR =====IMPRESSION:===== 1. No left shoulder acute injury identified 2. Mild inferior joint degenerative spurring Ordered By: PADMAJA LEIGH Interpreted By: Phil Valencia MD, 07/09/2024 4:43 PM Narrative 07/09/2024 4:45 PM PARISH VISITOR [address] [address] Examination: 3 views left shoulder Exam date/time: 07/09/2024 4:26 PM Reason For Exam: 73 male status post recent fall. Persistent shoulder pain. Unable to lift arm above horizontal. Comparison: None Technique: 3 views of the left shoulder were obtained Findings: No acute fracture or dislocation seen. Grossly normal glenohumeral alignment. Inferior glenohumeral joint mild degenerative spurring. AC joint is unremarkable. Normal bone density. No erosive destructive change. Soft tissues are unremarkable. Procedure Note Phil Valencia MD - 07/09/2024 [facility] [address] [place], [place] [address] Examination: 3 views left shoulder Exam date/time: 07/09/2024 4:26 PM Reason For Exam: 73 male status post recent fall. Persistent shoulderpain. Unable to lift arm above horizontal. Comparison: None Technique: 3 views of the left shoulder were obtained Findings: No acute fracture or dislocation seen. Grossly normal glenohumeral alignment. Inferior glenohumeral joint milddegenerative spurring. AC joint is unremarkable. Normal bone density. No erosive destructive change. Soft tissues are unremarkable. =====IMPRESSION:===== 1. No left shoulder acute injury identified 2. Mild inferior joint degenerative spurring Ordered By: PADMAJA LEIGH Interpreted By: Phil Valencia MD, 07/09/2024 4:43 PM us Padmaja Leigh MD GENERAL IMAGING Final Result * US RETROPERITONEAL COMP (07/09/2024 11:32 AM PARISH VISITOR) Anatomical Region Laterality Modality Abdomen Ultrasound 07/09/2024 11:4 8 AM PARISH VISITOR Impressions 07/09/2024 11:55 AM PARISH VISITOR IMPRESSION: 1. No hydronephrosis. Bilateral ureteral jets in the urinary bladder. 2. Mild urinary bladder wall thickening. Mild cystitis would be in the differential diagnosis and recommend clinical correlation. 3. Minimal right pleural effusion. Ordered By: PADMAJA LEIGH Interpreted By: Venu Ding, 07/09/2024 11:48 AM Narrative 07/09/2024 11:55 AM [facility] [place] [address] [place], [place] [address] IMAGING STUDIES: US RETROPERITONEAL COMP DATE: 07/09/2024 11:05 AM HISTORY: acute on CKD 3 73-year-old male. Stage III chronic kidney disease. Acute kidney injury. Current ICU patient. COMPARISON: No pertinent comparison study at this institution. DISCUSSION: Right kidney 10.7 x 5.7 x 5.2 cm. Left kidney 10.6 x 6.7 x 5.5 cm. No hydronephrosis. Color Doppler signal within both kidneys. Mild urinary bladder distention. Mild urinary bladder wall thickening with anterior bladder wall approximately 6.8 mm. No bladder calcification. On color Doppler imaging of the urinary bladder, bilateral ureteral jets visualized consistent with patent ureters. Grayscale and color Doppler imaging of the upper abdominal IVC is within normal limits. Minimal right pleural fluid. Procedure Note Venu Ding MD - 07/09/2024 [facility] [address] [place], [place] [address] IMAGING STUDIES: US RETROPERITONEAL COMPDATE: 07/09/2024 11:05 AM HISTORY: acute on CKD 3 73-year-old male. Stage III chronic kidneydisease. Acute kidney injury. Current ICU patient. COMPARISON: No pertinent comparison study at this institution. DISCUSSION: Right kidney 10.7 x 5.7 x 5.2 cm. Left kidney 10.6 x 6.7 x 5.5 cm. No hydronephrosis. Color Doppler signal within both kidneys. Mild urinary bladder distention. Mild urinary bladder wall thickening withanterior bladder wall approximately 6.8 mm. No bladder calcification. Oncolor Doppler imaging of the urinary bladder, bilateral ureteral jetsvisualized consistent with patent ureters. Grayscale and color Doppler imaging of the upper abdominal IVC is withinnormal limits. Minimal right pleural fluid. IMPRESSION: 1. No hydronephrosis. Bilateral ureteral jets in the urinary bladder. 2. Mild urinary bladder wall thickening. Mild cystitis would be in thedifferential diagnosis and recommend clinical correlation. 3. Minimal right pleural effusion. Ordered By: PADMAJA LEIGH Interpreted By: Venu Ding, 07/09/2024 11:48 AM us Padmaja Leigh MD ULTRASOUND Final Result * USE ECHOCARDIOGRAM W CON (07/07/2024 9:52 AM PARISH VISITOR) Anatomical Region Laterality Modality NA Echocardiogram 07/07/2024 9:16 AM PARISH VISITOR Narrative 07/07/2024 9:30 PM PARISH VISITOR Echocardiography Report Pat.Name: KEYANA POOL Pat.ID: [id number] St.Date: 07/07/2024 Exam Time: 9:16:00 AM Study Type:ECHO WITH CARDIAC DOPPLER COMP Height: 67 in Weight: 177 lb BSA: 1.92 m2 Age: 5 1950,73Y Sex: M HR: 68 bpm Sonogrphr: Hugh Lantigua [facility] [[email or web address]], ACS Pat. Stat.:Inpatient Room: [facility] Reason for Study:Ischemic Cardiomyopathy Procedures: 2D, M-mode, Doppler, Color Flow, Definity was used to enhance endocardial definition. Portable, The study quality is technically difficult. Race: W ++++++++++++++++++++++++++++++++++++ SUMMARY: ++++++++++++++++++++++++++++++++++++ The left ventricular size is normal. Estimated left ventricular ejection fraction is 55-60%. Left ventricular diastolic function is abnormal. There was severe hypokinesis, nearly aneurysmal, of the apical urbina. The right ventricular size is normal. Right ventricular systolic function is normal. No significant valvular abnormalities. ++++++++++++++++++++++++++++++++++++ FINDINGS: ++++++++++++++++++++++++++++++++++++ LV: The left ventricular size is normal. Estimated left ventricular ejection fraction is 55-60%. No concentric left ventricular hypertrophy. Left ventricular diastolic function is abnormal. WM: There was severe hypokinesis, nearly aneurysmal, of the apical urbina. RV: The right ventricular size is normal. Right ventricular systolic function is normal. IVS: No evidence of ventricular septal defect. LA: The left atrial volume is moderately increased (42-48 ml/M2). RA: Right atrial size is mildly enlarged. IAS: Atrial septum appears intact. ANGEL LUIS: Very small pericardial effusion noted, no evidence of tamponade. AO: Normal aortic root. PA: The peak pulmonary artery systolic pressure is estimated to be approximately 30 mmHg. This is consistent with upper normal pulmonary artery systolic pressure. SVn: Inferior vena cava is normal. Inferior vena cava shows >50% collapse with respiration consistent with normal right atrial pressure. AV: The aortic valve is trileaflet. No evidence of aortic valve stenosis. No evidence of aortic valve regurgitation. MV: Trace mitral regurgitation. No evidence of mitral stenosis. PV: No evidence of pulmonic valve stenosis. No evidence of pulmonic regurgitation. TV: A trace of tricuspid regurgitation. No evidence of tricuspid valve stenosis. <Electronic Signature> 07/07/2024 09:30 PM Roc Fulton M.D. Procedure Note Roc Fulton MD - 07/07/2024 Echocardiography Report Pat.Name: KEYANA POOL Pat.ID: [id number] .Date: 07/07/2024 Exam Time: 9:16:00 AM Study Type:ECHO WITH CARDIAC DOPPLER COMP Height: 67 in Weight: 177 lb BSA: 1.92 m2 Age: 5 1950,73Y Sex: M HR: 68 bpm Sonogrphr: Hugh Lantigua [facility] [[email or web address]], ACS Pat. Stat.:Inpatient Room: 202 Reason for Study:Ischemic Cardiomyopathy Procedures: 2D, M-mode, Doppler, Color Flow, Definity was used to enhance endocardial definition. Portable, The study quality is technically difficult. Race: W ++++++++++++++++++++++++++++++++++++ SUMMARY: ++++++++++++++++++++++++++++++++++++ The left ventricular size is normal. Estimated left ventricular ejection fraction is 55-60%. Left ventricular diastolic function is abnormal. There was severe hypokinesis, nearly aneurysmal, of the apical urbina. The right ventricular size is normal. Right ventricular systolic function is normal. No significant valvular abnormalities. ++++++++++++++++++++++++++++++++++++ FINDINGS: ++++++++++++++++++++++++++++++++++++ LV: The left ventricular size is normal. Estimated left ventricular ejection fraction is 55-60%. No concentric left ventricular hypertrophy. Left ventricular diastolic function is abnormal. WM: There was severe hypokinesis, nearly aneurysmal, of the apical urbina. RV: The right ventricular size is normal. Right ventricular systolic function is normal. IVS: No evidence of ventricular septal defect. LA: The left atrial volume is moderately increased (42-48 ml/M2). RA: Right atrial size is mildly enlarged. IAS: Atrial septum appears intact. ANGEL LUIS: Very small pericardial effusion noted, no evidence of tamponade. AO: Normal aortic root. PA: The peak pulmonary artery systolic pressure is estimated to be approximately 30 mmHg. This is consistent with upper normal pulmonary artery systolic pressure. SVn: Inferior vena cava is normal. Inferior vena cava shows >50% collapse with respiration consistent with normal right atrial pressure. AV: The aortic valve is trileaflet. No evidence of aortic valve stenosis. No evidence of aortic valve regurgitation. MV: Trace mitral regurgitation. No evidence of mitral stenosis. PV: No evidence of pulmonic valve stenosis. No evidence of pulmonic regurgitation. TV: A trace of tricuspid regurgitation. No evidence of tricuspid valve stenosis. <Electronic Signature> 07/07/2024 09:30 PM Roc Fulton M.D. Abram Lassiter DO ECHO Final Result * ANCA VASCULITIS PANEL (07/07/2024 6:36 AM PARISH VISITOR) MYELOPEROXIDASE AB <1.0 <1.0 AI 2024 10:20 AM PARISH VISITOR Koding DEBORAH PERKINS Comment: Value Interpretation <1.0 AI: No Antibody Detected >or=1.0 AI: Antibody Detected Autoantibodies to myeloperoxidase (MPO) are commonly associated with the following small-vessel vasculitides: microscopic polyangiitis, polyarteritis nodosa, Churg-Zak syndrome, necrotizing and crescentic glomerulonephritis and occasionally granulomatosis with polyangiitis (GPA, Ajit's). The perinuclear IFA pattern, (p-ANCA) is based largely on autoantibody to myeloperoxidase which serves as the primary antigen. These autoantibodies are present in active disease. C ANCA <1.0 <1.0 AI 07/09/2024 10:20 AM PARISH VISITOR [facility] Comment: Value Interpretation <1.0 AI: No Antibody Detected >or=1.0 AI: Antibody Detected Autoantibodies to proteinase-3 (GA-3) are accepted as characteristic for granulomatosis with polyangiitis (GPA, Ajit's), and are detectable in 95% of the histologically proven cases. The cytoplasmic IFA pattern, (c-ANCA), is based largely on autoantibody to GA-3 which serves as the primary antigen. These autoantibodies are present in active disease. Test Performed by [facility], [facility], [address] [place] [address] Zaki Beard M.D., Ph.D., Director of Laboratories , [facility] [id number] 07/07/2024 6:36 AM PARISH VISITOR Duane Jesus MD LABORATORY Final Result [facility] [address], * HIV 1 ANTIGEN(S), WITH HIV-1 AND HIV-2 ANTIBODIES (07/07/2024 6:36 AM PARISH VISITOR) HIV 1/2 AB+ HIV1 P24 AG NON-REACTI VE NON-REACTI VE 07/07/2024 8:05 AM PARISH VISITOR [facility] 07/07/2024 6:36 AM PARISH VISITOR Duane Jesus MD LABORATORY Final Result [facility] [address] [place] [address], [place] [phone] * ANTINUCLEAR ANTIBODY WI RFX (MARA) (07/07/2024 6:36 AM PARISH VISITOR) MARA <0.09 07/07/2024 2:30 PM PARISH VISITOR [facility] Comment: NEGATIVE: <0.7 RATIO MARA PROFILE AND TITER NOT PERFORMED THE MARA SCREEN TESTS FOR THE FOLLOWING ANTIBODIES BY EIA: SSA1 (RO), SSB1 (LA), BISHOP, SCL70, JO1, CENTROMERE, AUTO PAINTER HELPER HISTONE MUST BE ORDERED SEPARATELY DNA (DS) ANTIBODY 1.3 IU/ML 2:30 PM PARISH VISITOR [facility] Comment: NEGATIVE: <10 IU/mL EQUIVOCAL: 10 to 15 IU/mL POSITIVE: >15 IU/mL THIS QUANTITATIVE ASSAY IS CALIBRATED TO THE [employer]'S WO/80 STANDARD. THE LEVEL OF dsDNA AUTOANTIBODY GERERALLY CORRELATES WITH THE LEVEL OF DISEASE ACTIVITY IN SYSTEMIC LUPUS ERYTHMATOSUS 07/07/2024 6:36 AM PARISH VISITOR Duane Jesus MD LABORATORY Final Result [facility] [address] [place] [address], [place] [phone] [id number] * CYCLIC CITRULLINATED PEPTIDE (CCP)ANTIBODY(IGG) (07/07/2024 6:36 AM PARISH VISITOR) CITRULLINE PEPTIDE ANTIBODY <16 <20 Units 07/09/2024 6:54 PM PARISH VISITOR Koding VICKEYJESÚS ODEN Comment: Negative: <20 Weak Positive: 20 - 39 Moderate Positive: 40 - 59 Strong Positive: >59 Test Performed by Mani Reynoso, [facility], [address] [place] [address] Zaki Beard M.D., Ph.D., Director of Laboratories , CLIA [id number] 07/07/2024 6:36 AM PARISH VISITOR Duane Jesus MD LABORATORY Final Result [place] [id number] [place], [place] , [place] [phone] * SCL 70 (07/07/2024 6:36 AM PARISH VISITOR) SCL 70 S/P/B <1.0 07/09/2024 9:52 AM PARISH VISITOR [facility] Comment: Reference Range: < 1.0 NEG AI Test Performed by [facility], [facility], [address] [place] [address] Zaki Beard M.D., Ph.D., Director of Laboratories , CLIA [id number] 07/07/2024 6:36 AM PARISH VISITOR us Duane Jesus MD LABORATORY Final Result Performing Organization Address City/[facility]/ZIP Co de Phone Number [place] [id number] [place], [place] , [place] [phone] * CK (CPK) (07/07/2024 6:36 AM PARISH VISITOR) CPK 172 35 - 232 U/L 07/07/2024 7:08 AM PARISH VISITOR [facility] 07/07/2024 6:36 AM PARISH VISITOR us Duane Jesus MD LABORATORY Final Result [facility] [address] [place] [id number], [place] [phone] * LIPID PANEL (07/07/2024 3:34 AM PARISH VISITOR) CHOLESTEROL 125 <200 MG/DL 07/07/2024 4:48 AM [facility] TRIGLYCERIDES 119 <150 MG/DL 07/07/2024 4:48 AM [facility] HDL 52 >40.0 MG/DL 07/07/2024 4:48 AM [facility] LDL (CALCULATED) 49 <100 MG/DL 07/07/19 25 4:48 AM [facility] NON HDL CHOLESTEROL 73 <130 MG/DL 07/07 4:48 AM [facility] CHOL/HDL RATIO 2.4 0.0 - 4.5 07/07/2024 4:48 AM [facility] VLDL CALCULATION 24 5 - 55 MG/DL 07/07/2024 4:48 AM [facility] LIPID INTERPRETATION 07/07/2024 4:48 AM [facility] Comment: [facility] REPORT RECOMMENDATIONS: ADULT CHILD LOW RISK: CHOLESTEROL <200 <170 TRIGLYCERIDE <150 --- HDL >=60 --- LDL <100 <110 BORDERLINE: CHOLESTEROL 200-239 170-199 TRIGLYCERIDE 150-199 --- HDL 40-59 --- LDL 100-159 110-129 HIGH RISK: CHOLESTEROL >=240 >=200 TRIGLYCERIDE >=200 --- HDL <40 --- LDL >=160 >=130 07/07/2024 3:34 AM PARISH VISITOR us Denny Spaulding MD LABORATORY Final Resul t [facility] [address] [place] [address], * THYROID STIM HORMONE, TSH (07/07/2024 3:34 AM PARISH VISITOR) Pathologist [facility] [place] TSH 1.270 0.358 - 3.74 uIU/ML 07/07/2024 4:58 AM PARISH VISITOR [facility] Comment: HIGH DOSES OF BIOTIN MAY INTERFERE WITH THIS TEST RESULT. CORRELATION TO CLINICAL HISTORY AND PRESENTATION RECOMMENDED. 07/07/2024 3:34 AM PARISH VISITOR us Denny Spaulding MD LABORATORY Final Resul t [facility] [address] [place] [address], * RESPIRATORY PCR PANEL 2 (07/07/2024 1:16 AM PARISH VISITOR) [facility] ADENOVIRUS PCR (RESP) NOT DETECTED NOT DETECTED 07/07/2024 7:39 AM PARISH VISITOR [facility] CORONAVIRUS 229E PCR (RESP) NOT DETECTED NOT DETECTED 07/07/2024 7:39 AM PARISH VISITOR [facility] CORONAVIRUS HKU1 PCR (RESP) NOT DETECTED NOT DETECTED 07/07/2024 7:39 AM [facility] CORONAVIRUS NL63 PCR (RESP) NOT DETECTED NOT DETECTED 07/07/2024 7:39 AM [facility] CORONAVIRUS OC43 PCR (RESP) NOT DETECTED NOT DETECTED 07/07/2024 7:39 AM PARISH VISITOR [facility] METAPNEUMOVIRUS PCR (RESP) NOT DETECTED NOT DETECTED 07/07/2024 7:39 AM PARISH VISITOR [facility] RHINOVIRUS/ENTEROV IRUS PCR (RESP) NOT DETECTED NOT DETECTED 07/07/2024 7:39 AM PARISH VISITOR [facility] INFLUENZA A PCR (RESP) NOT DETECTED NOT DETECTED 07/07/2024 7:39 AM [facility] INFLUENZA B PCR (RESP) NOT DETECTED NOT DETECTED 07/07/2024 7:39 AM PARISH VISITOR [facility] PARAINFLUENZA 1 PCR (RESP) NOT DETECTED NOT DETECTED 07/07/2024 7:39 AM PARISH VISITOR [facility] PARAINFLUENZA 2 PCR (RESP) NOT DETECTED NOT DETECTED 07/07/2024 7:39 AM PARISH VISITOR [facility] PARAINFLUENZA 3 PCR (RESP) NOT DETECTED NOT DETECTED 07/07/2024 7:39 AM PARISH VISITOR [facility] PARAINFLUENZA 4 PCR (RESP) NOT DETECTED NOT DETECTED 07/07/2024 7:39 AM PARISH VISITOR [facility] RSV PCR (RESP) NOT DETECTED NOT DETECTED 07/07/2024 7:39 AM PARISH VISITOR [facility] B PARAPERTUSIS PCR (RESP) NOT DETECTED NOT DETECTED 07/07/2024 7:39 AM PARISH VISITOR [facility] BORDETELLA PERTUSSIS PCR (RESP) NOT DETECTED NOT DETECTED 07/07/2024 7:39 AM PARISH VISITOR [facility] CHLAMYDOPHILA PNEUMONIAE PCR (RESP) NOT DETECTED NOT DETECTED 07/07/2024 7:39 AM PARISH VISITOR [facility] MYCOPLASMA PNEUMONIAE PCR (RESP) NOT DETECTED NOT DETECTED 07/07/2024 7:39 AM PARISH VISITOR [facility] CORONAVIRUS SARS COV 2 PCR (RESP) NOT DETECTED NOT DETECTED 07/07/2024 7:39 AM PARISH VISITOR [facility] NASOPHARYNGEAL SWAB / Unknown 07/07/2024 1:16 AM PARISH VISITOR Duane Jesus MD MICROBIOLOGY - GENERAL ORDER PRECIOUS Final Result [facility] [address] [place] [address], [place] [phone] * (ABNORMAL) VITAMIN B-12 (07/07/2024 12:30 AM PARISH VISITOR) VITAMIN B12 S/P/B 1,551(H) 254 - 1,320 PG/ML 07/07/2024 1:34 AM PARISH VISITOR [facility] 07/07/2024 12:3 0 AM PARISH VISITOR us Duane Jesus MD LABORATORY Final Result [facility] [address] [place] [address], [place] [phone] * (ABNORMAL) TRANSFERRIN (07/07/2024 12:30 AM PARISH VISITOR) TRANSFERRIN 172(L) 200 - 360 mg/dL 07/07/2024 1:02 AM PARISH VISITOR [facility] 07/07/2024 12:3 0 AM PARISH VISITOR us Duane Jesus MD LABORATORY Final Result Performing Organization Address City/[facility]/ZIP Co de Phone Number [facility] [address] [place] [address], [place] [phone] * (ABNORMAL) FOLIC ACID SERUM (07/07/2024 12:30 AM PARISH VISITOR) FOLATE 46.6(H) 3.1 - 17.5 NG/ML 07/07/2024 1:34 AM PARISH VISITOR [facility] 07/07/2024 12:3 0 AM PARISH VISITOR us Duane Jesus MD LABORATORY Final Result Performing Organization Address City/[facility]/ZIP Co de Phone Number [facility] [address] [place] [address], [place] [phone] * DRUG SCREEN RAPID (07/06/2024 11:25 PM PARISH VISITOR) AMPHETAMINE (U) NEGATIVE NEGATIVE 12:07 AM [facility] BARBITURATES SCREEN (U) NEGATIVE NEGATIVE 07/07/2024 12:07 AM [facility] BENZODIAZEPINES SCREEN (U) NEGATIVE NEGATIVE 07/07/2024 12:07 AM [facility] CANNABINOIDS SCREEN (U) NEGATIVE NEGATIVE 07/07/2024 12:07 AM [facility] COCAINE METABOLITES (U) NEGATIVE NEGATIVE 07/07/2024 12:07 AM [facility] METHADONE (U) NEGATIVE NEGATIVE 07/07/2024 12:07 AM [facility] OPIATE SCREEN (U) NEGATIVE NEGATIVE 025 12:07 AM [facility] PHENCYCLIDINE PCP (U) NEGATIVE NEGATIVE 07/07/2024 12:07 AM [facility] Comment: NOTE: RESULTS OF THIS DRUG SCREEN SHOULD BE USED FOR MEDICAL PURPOSES ONLY AND NOT FOR LEGAL OR EMPLOYMENT PURPOSES. POSITIVE RESULTS ARE NOT CONFIRMED. MEDICATIONS CONTAINING EPHEDRINE MAY CAUSE FALSE POSITIVE AMPHETAMINE CALL [phone], LAB, TO REQUEST CONFIRMATION TESTING. IF CREATININE IS <40 mg/dL. RECOLLECTION IS SUGGESTED. AMPHETAMINE- 500 NG/ML BARBITURATE- 200 NG/ML BENZODIAZEPINES- 200 NG/ML THC- 50 NG/ML COCAINE- 150 NG/ML METHADONE- 300 NG/ML OPIATE- 300 MG/ML PCP- 25 NG/ML CREATININE (U) 71.6 39 - 259 MG/DL 07/07/2024 12:07 AM [facility] URINE SPECIMEN / Unknown 07/06/2024 11:25 PM PARISH VISITOR us Duane Jesus MD URINE ORDERABLES Final Resul t [facility] [address] [place] [id number], * URINE BACTERIA CULTURE (07/06/2024 11:25 PM PARISH VISITOR) SPEC DESCRIPTION URINE CLEAN CATCH 07/06/2024 11:22 PM PARISH VISITOR [facility] SPECIAL REQUESTS NO SPECIAL REQUEST 07/06/2024 11:22 PM PARISH VISITOR [facility] CULTURE RESULT NO GROWTH 2 DAYS 07/09/2024 7:01 AM PARISH VISITOR [facility] URINE SPECIMEN OBTAINED BY CLEAN CATCH PROCEDURE / Unknown 07/06/2024 11:25 PM PARISH VISITOR 07/06/2024 11:47 PM PARISH VISITOR us Duane Jesus MD MICROBIOLOGY - GENERAL ORDER PRECIOUS Final Result [facility] [address] [place] [address], [place] [phone] * COLONOSCOPY (05/31/2018) us Documents Scanned SCANNING Final Result from Last 3 Months or Most Recently Relevant to Health Maintenance Insurance [employer] Advance Directives * Full Code (Latest Code Status on File) Date Activated Date Inactivated Comments 07/21/2024 6:36 PM 08/03/2024 5:26 PM * Full Code Date Activated Date Inactivated Comments 07/06/2024 10:52 PM 07/12/2024 1:44 AM * Full Code Date Activated Date Inactivated Comments 05/13/2023 9:25 PM 05/18/2023 4:22 PM * Full Code Date Activated Date Inactivated Comments 06/14/2022 6:58 PM 06/16/2022 3:34 PM * Full Code Date Activated Date Inactivated Comments 10/18/2021 7:16 PM 05/23/2022 2:52 PM Care Teams Community Outreach Worker Relationship Specialty Start Date End Date Adrienne Marin MD [address] [place] [address] PCP - General INTERNAL MEDICINE 05/09/24 Gladys Sanchez MD [address] [place] [address] [facility] Nurse Liaison CARDIOVASCULAR DISEASE 05/28/19
--- OUTSIDE RECORDS SUMMARY | 2024-08-23 12:48 | XMS_ITS | Encounter Summary ---
Author Organization [facility] Address Critical access hospital[address] [place] [address] Care Team Providers Care Management Trainee Program Stores Name Role Phone Adrian Lee MD Primary Care Provider [phone] Gladys Sanchez MD Unavailable [phone] Adrienne Marin MD Primary Care Provider [phone] Encounter Details Date Type Department Care Team (Late st Contact Info) Description 01/24/2023 Abstract [facility] [address] [place] [id number] Flakito Hernandez MD Social History Tobacco Use Types Packs/Day Years [...] Date Recorded Patient Health Questionnaire-2 Score 0 01/15/2023 Sex and Gender Information Value Date Recorded Sex Assigned at Male 07/08/2024 7:30 AM PERSONAL INSURANCE ADVISOR Legal Sex Male 8:56 PM CDT Gender Identity Male 07/08/2024 7:30 AM PERSONAL INSURANCE ADVISOR Sexual Orientation Straight 07/08/2024 7: 30 AM PERSONAL INSURANCE ADVISOR documented as of this encounter Functional Status * RETIRED Are you deaf or do you have serious difficulty hearing Answer Date of Assessment Author Status Yes 06/14/2022 7:00 PM PERSONAL INSURANCE ADVISOR Activ e * RETIRED Are you blind or do you have serious difficulty seeing, even when wearing glasses? Answer Date of Assessment Author Status No 06/14/2022 7:00 PM PERSONAL INSURANCE ADVISOR Activ e * Do you have serious difficulty walking or climbing stairs? Answer Date of Assessment Author Status No 06/14/2022 7:00 PM Cathy Osuna RN Active * Do you have difficulty dressing or bathing? Answer Date of Assessment Author Status No 06/14/2022 7:00 PM Cathy Osuna RN Active * Because of a physical, mental, or emotional condition, do you have difficulty doing errands alone such as visiting a doctor's office or shopping? Answer Date of Assessment Author Status No 06/14/2022 7:00 PM Cathy Osuna RN Active documented as of this encounter Mental Status * Because of a physical, mental, or emotional condition, do you have serious difficulty concentrating, remembering, or making decisions? Answer Entry Date Author Status No 06/14/2022 7:00 PM Cathy Osuna RN Active documented in this encounter Plan of Treatment Upcoming Encounters Date Type Department Care Team (Late st Contact Info) Description 08/25/2024 1:30 PM PERSONAL INSURANCE ADVISOR Appointment Center [facility] [address] [address] Adrienne Marin MD [address] [place] [phone] 08/27/2024 1:30 PM PERSONAL INSURANCE ADVISOR Appointment Center [facility] [place] [address] Adrienne Marin MD [address] [place] [phone] 08/29/2024 1:30 PM PERSONAL INSURANCE ADVISOR Appointment Center [facility] [place] [address] Adrienne Marin MD [address] [place] [phone] 09/01/2024 11:30 AM CDT Office [facility], [facility] [address] [place] [address] Anders Palacio, COURTNEY Three [facility] [address] [place] [address] 09/01/2024 1:30 PM CDT Appointment Center [facility] [address] [place] [address] Adrienne Marin MD [address] [place] [phone] 09/03/2024 1:30 PM CDT Appointment [facility] [place] [address] Adrienne Marin MD [address] [place] [phone] 09/05/2024 1:30 PM CDT Appointment [facility] [place] [address] Adrienne Marin MD [address] [place] [phone] 09/08/2024 1:30 PM CDT [facility] [address] Adrienne Marin MD [address] [place] [phone] 09/10/2024 1:30 PM CDT App[facility] [place] [address] Adrienne Marin MD [address] [place] [phone] 09/12/2024 1:30 PM CDT Appointment [facility] [address] [place] [place] [address] Adrienne Marin MD [address] [place] [phone] 09/15/2024 1:30 PM CDT Appointment [facility] [address] [place] [place] [address] Adrienne Marin MD [address] [place] [phone] 09/17/2024 1:30 PM CDT Appointment [facility] [place] [address] Adrienne Marin MD [address] [place] [phone] 09/19/2024 1:30 PM CDT Appointment [facility] [place] [address] Adrienne Marin MD [address] [place] [phone] 09/22/2024 1:30 PM CDT Appointment [facility] [place] [address] Adrienne Marin MD [address] [place] [phone] 09/24/2024 1:30 PM CDT Appointment [facility] [place] [address] Adrienne Marin MD [address] [place] [phone] 09/26/2024 1:30 PM CDT Appointment [facility] [address] [place] [address] Adrienne Marin MD [address] [place] [phone] 09/29/2024 1:30 PM CDT Appointment [facility] [address] [place] [address] Adrienne Marin MD [address] [place] [phone] 10/01/2024 1:30 PM CDT Appointment [facility] [place] [address] Adrienne Marin MD [address] [place] [phone] 10/03/2024 1:30 PM CDT Appointment [facility] [place] [address] Adrienne Marin MD [address] [place] [phone] 10/06/2024 1:30 PM CDT Appointment [facility] [place] [address] Adrienne Marin MD [address] [place] [phone] 10/08/2024 1:30 PM CDT Appointment [facility] [address] [place] [address] Adrienne Marin MD [address] [place] [phone] 10/10/2024 1:30 PM CDT Appointment [facility] [address] [place] [address] Adrienne Marin MD [address] [place] [phone] 10/13/2024 1:30 PM CDT Appointment [facility] [place] [address] Adrienne Marin MD [address] [place] [phone] 10/15/2024 1:30 PM CDT Appointment [facility] [place] [address] Adrienne Marin MD [address] [place] [phone] 10/17/2024 1:30 PM CDT Appointment [facility] [place] [address] Adrienne Marin MD [address] [place] [phone] 10/20/2024 1:30 PM CDT Appointment [facility] [place] [address] Adrienne Marin MD [address] [place] [phone] 10/22/2024 1:30 PM CDT Appointment [facility] [address] [place] [address] Adrienne Marin MD [address] [place] [phone] 10/24/2024 1:30 PM CDT Appointment [facility] [address] [place] [address] Adrienne Marin MD [address] [place] [phone] 10/27/2024 1:30 PM CDT Appointment [facility] [address] [place], [place] [address] [address] Adrienne Marin MD [address] [place] [phone] 10/29/2024 1:30 PM CDT Appointment [facility] [place] [address] Adrienne Marin MD [address] [place] [phone] 10/31/2024 1:30 PM CDT Appointment [facility] [place] [address] Adrienne Marin MD [address] [place] [phone] 11/03/2024 1:30 PM CDT Appointment [facility] [address] [address] Adrienne Marin MD [address] [place] [phone] 11/05/2024 1:30 PM CDT Appointment [facility] [address] [place] [address] Adrienne Marin MD [address] [place] [phone] 11/07/2024 1:30 PM CDT Appointment [facility] [address] [place] [address] Adrienne Marin MD [address] [place] [phone] 11/07/2024 2:40 PM CDT Office Visit [facility] Diabetes and Endocrinology - [address] [phone] Hannah Garrison MD [address] [place] [id number] 11/10/2024 1:30 PM CDT Appointment [facility] [place] [address] Adrienne Marin MD [address] [place] [phone] 11/12/2024 1:30 PM CDT Appointment [facility] [address] [place] [address] Adrienne Marin MD [address] [place] [phone] 11/14/2024 1:30 PM CDT Appointment [facility] [address] [place] [address] Adrienne Marin MD [address] [place] [phone] 11/19/2024 1:30 PM CDT Appointment [facility] [address] [place] [address] [address] [place] [address] Adrienne Marin MD [address] [place] [phone] 11/21/2024 1:30 PM CDT Appointment [facility] [address] [place] [address] [address] [place] [address] Adrienne Marin MD [address] [place] [phone] 11/24/2024 1:30 PM CDT Appointment [facility] [address] [place] [address] [place] [address] Adrienne Marin MD [address] [place] [phone] 11/26/2024 1:30 PM CDT App[facility] [address] [place] [address] [address] [place] [address] Adrienne Marin MD [address] [place] [phone] documented as of this encounter Goals Goal Patient Goal Type Associated Problems Recent Progress Patient-Stated? Author Patient will return to prior living situation and remain independent in ADLs upon discharge from hospital General No Diana Todd RN Family - family caregiver with be involved in care transitions and discharge planning General No Nicole Cole RN Safety Patient/family will have appropriate support at home upon discharge General No Ayleen Garcia, DIRECTOR OF TEACHER EDUCATION documented as of this encounter Visit Diagnoses Not on filedocumented in this encounter Additional Health Concerns Infection Onset Date Last Indicated Resolved Time COVID-19 Rule Out 05/13/2023 05/13/2023 05/13/2023 4:14 PM PERSONAL INSURANCE ADVISOR COVID-19 Rule Out 05/13/2023 05/13/2023 05/14/2023 1:35 AM PERSONAL INSURANCE ADVISOR COVID-19 Rule Out 07/08/2023 07/08/2023 07/08/2023 5:34 PM PERSONAL INSURANCE ADVISOR COVID-19 Rule Out 07/07/2024 07/07/2024 07/07/2024 7:39 AM PERSONAL INSURANCE ADVISOR Assessment Noted Time PHQ-9 Depression Total Score: 0 11/19/19 3:11 PM CDT documented as of this encounter Care Teams Management Trainee Program Stores Relationship Specialty Start Date End Date Adrian Lee MD [address] [facility] [place] [phone] PCP - General FAMILY PRACTICE 04/22/18 05/08/24 Adrienne Marin MD [address] [place] [phone] PCP - General INTERNAL MEDICINE 05/09/24 Gladys Sanchez MD [address] [place] [id number] [employer] Manager CARDIOVASCULAR DISEASE 05/28/19 documented as of this encounter
--- OUTSIDE RECORDS SUMMARY | 2024-08-23 12:48 | XMS_ITS | Encounter Summary ---
Author Organization [facility] Address [facility] [place] [address] Care Team Providers Care Senior Project Architect Name Role Phone Pee Lafleur MD Unavailable Unavailable Adrian Lee MD Primary Care Provider [phone] Gladys Sanchez MD Unavailable [phone] Adrienne Marin MD Primary Care Provider [phone] Encounter Details Date Type Department Care Team (Late st Contact Info) Description 11/30/2018 Abstract SFL CONVERSION [address] [place] [address] , Generic Conversion, Social History Tobacco Use Types Packs/Day Years Used Date Smoking Tobacco: Never Smokeless Tobacco: Never Sex and Gender Information Value Date Recorded Sex Assigned at Male 07/08/2024 7:30 AM MIXER RUNNER Legal Sex Male 8:56 PM CDT Gender Identity Male 07/08/2024 7:30 AM MIXER RUNNER Sexual Orientation Straight 07/08/2024 7: 30 AM MIXER RUNNER documented as of this encounter Plan of Treatment Upcoming Encounters Date Type Department Care Team (Late st Contact Info) Description 08/25/2024 1:30 [address] [facility] [place] [address] Adrienne Marin MD [address] [place] [phone] 08/27/2024 1:30 PM MIXER RUNNER Appointment [facility] [place] [address] Adrienne Marin MD [address] [place] [phone] 08/29/2024 1:30 PM MIXER RUNNER Appointment [facility] [place] [address] Adrienne Marin MD [address] [place] [phone] 09/01/2024 11:30 AM CDT Office [facility], [facility] [address] [place] [address] Anders Palacio NP [facility] [address] [place] [address] 09/01/2024 1:30 PM CDT Appointment [facility] [address] [place], [place] [address] [address] Adrienne Marin MD [address] [place] [phone] 09/03/2024 1:30 PM CDT Appointment [facility] [place] [address] Adrienne Marin MD [address] [place] [phone] 09/05/2024 1:30 PM CDT Appointment [facility] [place] [address] Adrienne Marin MD [address] [place] [phone] 09/08/2024 1:30 PM CDT Appointment [facility] [address] [place] [address] Adrienne Marin MD [address] [place] [phone] 09/10/2024 1:30 PM CDT Appointment [facility] [place] [address] Adrienne Marin MD [address] [place] [phone] 09/12/2024 1:30 PM CDT Appointment [facility] [place] [place] [address] Adrienne Marin MD [address] [place] [phone] 09/15/2024 1:30 PM CDT Appointment [facility] [address] [place], [place] [address] [address] Adrienne Marin MD [address] [place] [phone] 09/17/2024 1:30 PM CDT Appointment [facility] [place] [address] Adrienne Marin MD [address] [place] [phone] 09/19/2024 1:30 PM CDT Appointment [facility] [place] [address] Adrienne Marin MD [address] [place] [phone] 09/22/2024 1:30 PM CDT Appointment [facility] [address] [place] [address] Adrienne Marin MD [address] [place] [phone] 09/24/2024 1:30 PM CDT Appointment [facility] [place] [address] Adrienne Marin MD [address] [place] [phone] 09/26/2024 1:30 PM CDT Appointment [facility] [place] [address] Adrienne Marin MD [address] [place] [phone] 09/29/2024 1:30 PM CDT Appointment [facility] [place] [address] Adrienne Marin MD [address] [place] [phone] 10/01/2024 1:30 PM CDT Appointment [facility] [place] [address] Adrienne Marin MD [address] [place] [phone] 10/03/2024 1:30 PM CDT Appointment [facility] [place] [address] Adrienne Marin MD [address] [place] [phone] 10/06/2024 1:30 PM CDT Appointment [facility] [address] [place] [address] Adrienne Marin MD [address] [place] [phone] 10/08/2024 1:30 PM CDT Appointment [facility] [place] [address] Adrienne Marin MD [address] [place] [phone] 10/10/2024 1:30 PM CDT Appointment [facility] [place] [address] Adrienne Marin MD [address] [place] [phone] 10/13/2024 1:30 PM CDT Appointment [facility] [address] [place], [place] [address] [address] Adrienne Marin MD [address] [place] [phone] 10/15/2024 1:30 PM CDT Appointment [facility] [place] [address] Adrienne Marin MD [address] [place] [phone] 10/17/2024 1:30 PM CDT Appointment [facility] [place] [address] Adrienne Marin MD [address] [place] [phone] 10/20/2024 1:30 PM CDT Appointment [facility] [address] [place] [address] Adrienne Marin MD [address] [place] [phone] 10/22/2024 1:30 PM CDT Appointment [facility] [address] [place] [address] Adrienne Marin MD [address] [place] [phone] 10/24/2024 1:30 PM CDT Appointment [facility] [address] [place] [address] Adrienne Marin MD [address] [place] [phone] 10/27/2024 1:30 PM CDT Appointment [facility] [place] [address] Adrienne Marin MD [address] [place] [phone] 10/29/2024 1:30 PM CDT Appointment [facility] [place] [address] Adrienne Marin MD [address] [place] [phone] 10/31/2024 1:30 PM CDT Appointment [facility] [place] [address] Adrienne Marin MD [address] [place] [phone] 11/03/2024 1:30 PM CDT Appointment [facility] [address] [place] [address] Adrienne Marin MD [address] [place] [phone] 11/05/2024 1:30 PM CDT Appointment [facility] [place] [address] Adrienne Marin MD [address] [place] [phone] 11/07/2024 1:30 PM CDT Appointment [facility] [place] [address] Adrienne Marin MD [address] [place] [phone] 11/07/2024 2:40 PM CDT Office Visit [facility] Endocrinology [address] [phone] Hannah Garrison MD [address] [place] [address] 11/10/2024 1:30 PM CDT Appointment [facility] [place] [address] Adrienne Marin MD [address] [place] [phone] 11/12/2024 1:30 PM CDT Appointment [facility] [place] [address] Adrienne Marin MD [address] [place] [phone] 11/14/2024 1:30 PM CDT Appointment [facility] [address] [place] [address] [place] [address] Adrienne Marin MD [address] [place] [phone] 11/19/2024 1:30 PM CDT Appointment [facility] [address] [place] [address] [place] [address] Adrienne Marin MD [address] [place] [phone] 11/21/2024 1:30 PM CDT Appointment [facility] [address] [place] [address] [place] [address] Adrienne Marin MD [address] [place] [phone] 11/24/2024 1:30 PM CDT Appointment [facility] [address] [place], [place] [address] [address] Adrienne Marin MD [address] [place] [phone] 11/26/2024 1:30 PM CDT Appointment [facility] [place] [address] Adrienne Marin MD [address] [place] [phone] documented as of this encounter Visit Diagnoses Not on filedocumented in this encounter Additional Health Concerns Infection Onset Date Last Indicated Resolved Time COVID-19 Rule Out 07/19/2021 07/19/2021 07/19/2021 9:17 PM MIXER RUNNER COVID-19 Rule Out 07/19/2021 07/19/2021 07/20/2021 7:01 PM MIXER RUNNER COVID-19 Rule Out 08/18/2021 08/18/2021 08/18/2021 12:03 PM MIXER RUNNER COVID-19 Confirmed 08/18/2021 08/18/2021 12:32 AM CDT COVID-19 Rule Out 09/13/2021 09/13/2021 09/13/2021 5:00 AM CDT COVID-19 Rule Out 05/23/2022 05/23/2022 05/23/2022 3:38 PM MIXER RUNNER Influenza - Seasonal 05/23/2022 05/23/2022 023 12:34 AM MIXER RUNNER COVID-19 Rule Out 05/13/2023 05/13/2023 05/13/2023 4:14 PM MIXER RUNNER COVID-19 Rule Out 05/13/2023 05/13/2023 05/14/2023 1:35 AM MIXER RUNNER COVID-19 Rule Out 07/08/2023 07/08/2023 07/08/2023 5:34 PM MIXER RUNNER COVID-19 Rule Out 07/07/2024 07/07/2024 07/07/2024 7:39 AM MIXER RUNNER documented as of this encounter Care Teams Senior Project Architect Relationship Specialty Start Date End Date Adrian Lee MD [address] [place] [address] [place] [address] PCP - General FAMILY PRACTICE 04/22/18 05/08/24 Adrienne Marin MD [address] [place] [address] PCP - General INTERNAL MEDICINE 05/09/24 Pee Lafleur MD [place] [employer] CARDIOVASCULAR DISEASE 11/02/17 05/27/19 Gladys Sanchez MD [address] [place] [address] [place] [employer] CARDIOVASCULAR DISEASE 05/28/19 documented as of this encounter
--- OUTSIDE RECORDS SUMMARY | 2024-08-23 12:48 | XMS_ITS | Encounter Summary ---
Author Organization [facility] Address [facility] [place] [address] Care Team Providers Care Playground Attendant Name Role Phone Adrian Lee MD Primary Care Provider [phone] Gladys Sanchez MD Unavailable [phone] Adrienne Marin MD Primary Care Provider [phone] Encounter Details Date Type Department Care Team (Late st Contact Info) Description 05/21/2023 Hospital Follow-up Call [facility] Unit [address] [place] [address] Amanda Ohara RN Social History Tobacco Use Types Packs/Day Years Used Date Smoking Tobacco: Never Passive Smoke Exposure: Never Smokeless Tobacco: Never Comments:non-smoker Alcohol Use Standard Drinks/Week Comments No 0 (1 standard drink = 0.6 oz pur e alcohol) [facility] Utilities Answer Date Recorded In the past 12 months has [employer] gas, oil, or water Plizy threatened to shut off services in your home? No 05/13/2023 Humiliation, Afraid, Rape, and Kick questionnair e Answer Date Recorded Within the last year, have y ou been afraid of your partner or ex-partner? No 05/13/2023 Within the last year, have y ou been humiliated or emotionally abused in other ways by your partner or ex-partner? No Within the last year, have y ou been kicked, hit, slapped, or otherwise physically hurt by your partner or ex-partner? No 05/13/2023 Within the last year, have y ou been raped or forced to have any kind of sexual activity by your partner or ex-partner? No 05/13/2023 AUDIT-C Answer Date Recorded Frequency of Alcohol Consumption Never 07/02/2019 Average Number of Drinks Not on file 020 Frequency of Binge Drinking Not on file 01/2020 Overall Financial Resource Strain (CARDIA) Answe r Date Recorded How hard is it for you to pa y for the very basics like food, housing, medical care, and heating? Not very hard 05/13/2023 PHQ-2 Answer Date Recorded Patient Health Questionnaire-2 Score 0 01/15/2023 Hunger Vital Sign Answer Date Recorded Within the past 12 months, y ou worried that your food would run out before you got the money to buy more. Never true 05/13/20 23 Within the past 12 months, t he food you bought just didn't last and you didn't have money to get more. Never true 05/13/2023 PRAPARE - Transportation Answer Date Re corded In the past 12 months, has l ack of transportation kept you from medical appointments or from getting medications? No 04/25 In the past 12 months, has l ack of transportation kept you from meetings, work, or from getting things needed for daily living? No 05/13/2023 Housing Stability Vital Sign Answer [...] place to sleep or slept in a assisted (including now)? No 05/13/2023 Sex and Gender Information Value Date Recorded Sex Assigned at Male 07/08/2024 7:30 AM WEIGHBRIDGE OPERATOR Legal Sex Male 8:56 PM CDT Gender Identity Male 07/08/2024 7:30 AM WEIGHBRIDGE OPERATOR Sexual Orientation Straight 07/08/2024 7: 30 AM WEIGHBRIDGE OPERATOR documented as of this encounter Functional Status * Are you deaf or do you have serious difficulty hearing Answer Date of Assessment Author Status Yes 05/13/2023 9:00 PM Dary Fortune RN Active * Are you blind or do you have serious difficulty seeing, even when wearing glasses? Answer Date of Assessment Author Status No 05/13/2023 9:00 PM Dary Fortune RN Active * Do you have serious difficulty walking or climbing stairs? Answer Date of Assessment Author Status No 05/13/2023 9:00 PM Dary Fortune RN Active * Do you have difficulty dressing or bathing? Answer Date of Assessment Author Status No 05/13/2023 9:00 PM Dary Fortune RN Active * Because of a physical, mental, or emotional condition, do you have difficulty doing errands alone such as visiting a doctor's office or shopping? Answer Date of Assessment Author Status No 05/13/2023 9:00 PM Dary Fortune RN Active documented as of this encounter Mental Status * Because of a physical, mental, or emotional condition, do you have serious difficulty concentrating, remembering, or making decisions? Answer Entry Date Author Status No 05/13/2023 9:00 PM Dary Fortune RN Active documented in this encounter Plan of Treatment Upcoming Encounters Date Type Department Care Team (Late st Contact Info) Description 08/25/2024 1:30 PM WEIGHBRIDGE OPERATOR Appointment [facility] [address] [place], [place] [address] [address] Adrienne Marin MD [address] [place] [phone] 08/27/2024 1:30 PM WEIGHBRIDGE OPERATOR Appointment [facility] [place] [address] Adrienne Marin MD [address] [place] [phone] 08/29/2024 1:30 PM WEIGHBRIDGE OPERATOR Appointment [facility] [place] [address] Adrienne Marin MD [address] [place] [phone] 09/01/2024 11:30 AM CDT Office Visit [facility] [address], [facility] [address] [place] [address] Anders Palacio, COURTNEY [facility] [address] [place] [address] 09/01/2024 1:30 PM CDT Appointment [facility] [address] [place] [address] Adrienne Marin MD [address] [place] [phone] 09/03/2024 1:30 PM CDT Appointment [facility] [address] [place] [address] Adrienne Marin MD [address] [place] [phone] 09/05/2024 1:30 PM CDT Appointment [facility] [address] [place] [address] Adrienne Marin MD [address] [place] [phone] 09/08/2024 1:30 PM CDT Appointment [facility] [address] [place] [address] Adrienne Marin MD [address] [place] [phone] 09/10/2024 1:30 PM CDT Appointment [facility] [address] [place] [address] Adrienne Marin MD [address] [place] [phone] 09/12/2024 1:30 PM CDT Appointment [facility] [address] [place] [address] Adrienne Marin MD [address] [place] [phone] 09/15/2024 1:30 PM CDT Appointment [facility] [address] [place] [address] Adrienne Marin MD [address] [place] [phone] 09/17/2024 1:30 PM CDT Appointment [facility] [place] [address] Adrienne Marin MD [address] [place] [phone] 09/19/2024 1:30 PM CDT Appointment [facility] [place] [address] Adrienne Marin MD [address] [place] [phone] 09/22/2024 1:30 PM CDT Appointment [facility] [place] [address] Adrienne Marin MD [address] [place] [phone] 09/24/2024 1:30 PM CDT Appointment [facility] [place] [address] Adrienne Marin MD [address] [place] [phone] 09/26/2024 1:30 PM CDT Appointment [facility] [address] [place] [address] Adrienne Marin MD [address] [place] [phone] 09/29/2024 1:30 PM CDT Appointment [facility] [address] [place] [address] Adrienne Marin MD [address] [place] [phone] 10/01/2024 1:30 PM CDT Appointment [facility] [place] [address] Adrienne Marin MD [address] [place] [phone] 10/03/2024 1:30 PM CDT Appointment [facility] [place] [address] Adrienne Marin MD [address] [place] [phone] 10/06/2024 1:30 PM CDT Appointment [facility] [place] [address] Adrienne Marin MD [address] [place] [phone] 10/08/2024 1:30 PM CDT Appointment [facility] [place] [address] Adrienne Marin MD [address] [place] [phone] 10/10/2024 1:30 PM CDT Appointment [facility] [address] [place] [address] Adrienne Marin MD [address] [place] [phone] 10/13/2024 1:30 PM CDT Appointment [facility] [address] [place] [address] Adrienne Marin MD [address] [place] [phone] 10/15/2024 1:30 PM CDT Appointment [facility] [address] [place] [place] [address] Adrienne Marin MD [address] [place] [phone] 10/17/2024 1:30 PM CDT Appointment [facility] [place] [address] Adrienne Marin MD [address] [place] [phone] 10/20/2024 1:30 PM CDT Appointment [facility] [place] [address] Adrienne Marin MD [address] [place] [phone] 10/22/2024 1:30 PM CDT Appointment [facility] [address] [place] [address] Adrienne Marin MD [address] [place] [phone] 10/24/2024 1:30 PM CDT Appointment [facility] [address] [place] [address] Adrienne Marin MD [address] [place] [phone] 10/27/2024 1:30 PM CDT Appointment [facility] [address] [place], [place] [address] [address] Adrienne Marin MD [address] [place] [phone] 10/29/2024 1:30 PM CDT Appointment [facility] [address] [place] [address] [place] [address] Adrienne Mrain MD [address] [place] [phone] 10/31/2024 1:30 PM CDT Appointment [facility] [place] [address] Adrienne Marin MD [address] [place] [phone] 11/03/2024 1:30 PM CDT Appointment [facility] [place] [address] Adrienne Marin MD [address] [place] [phone] 11/05/2024 1:30 PM CDT Appointment [facility] [address] [place] [address] Adrienne Marin MD [address] [place] [phone] 11/07/2024 1:30 PM CDT Appointment [facility] [address] [place] [address] Adrienne Marin MD [address] [place] [phone] 11/07/2024 2:40 PM CDT Office Visit [facility] Diabetes and Endocrinology - [address] [phone] Hannah Garrison MD [address] [place] [address] 11/10/2024 1:30 PM CDT Appointment [facility] [place] [address] Adrienne Marin MD [address] [place] [phone] 11/12/2024 1:30 PM CDT Appointment [facility] [place] [address] Adrienne Marin MD [address] [place] [phone] 11/14/2024 1:30 PM CDT Appointment [facility] [place] [address] Adrienne Marin MD [address] [place] [phone] 11/19/2024 1:30 PM CDT Appointment [facility] [address] [place] [address] [place] [address] Adrienne Marin MD [address] [place] [phone] 11/21/2024 1:30 PM CDT Appointment [facility] [address] [place] [address] [place] [address] Adrienne Marin MD [address] [place] [phone] 11/24/2024 1:30 PM CDT Appointment [facility] [address] [place] [address] [place] [address] Adrienne Marin MD [address] [place] [phone] 11/26/2024 1:30 PM CDT Appointment [facility] [address] [place] [address] [place] [address] Adrienne Marin MD [address] [place] [phone] documented as of this encounter Goals [...] home upon discharge General No Ayleen Garcia, WARE FINISHER documented as of this encounter Visit Diagnoses Not on filedocumented in this encounter Additional Health Concerns Infection Onset Date Last Indicated Resolved Time COVID-19 Rule Out 07/08/2023 07/08/2023 07/08/2023 5:34 PM WEIGHBRIDGE OPERATOR COVID-19 Rule Out 07/07/2024 07/07/2024 07/07/2024 7:39 AM WEIGHBRIDGE OPERATOR Assessment Noted Time PHQ-9 Depression Total Score: 0 11/19/19 22 3:11 PM CDT documented as of this encounter Care Teams Playground Attendant Relationship Specialty Start Date End Date Adrian Lee MD [address] [place] [address] PCP - General FAMILY PRACTICE 04/22/18 05/08/24 Adrienne Marin MD [address] [place] [id number] PCP - General INTERNAL MEDICINE 05/09/24 Gladys Sanchez MD [address] [place] [address] [place] Demonstrator CARDIOVASCULAR DISEASE 05/28/19 documented as of this encounter
--- OUTSIDE RECORDS SUMMARY | 2024-08-23 12:48 | XMS_ITS | Encounter Summary ---
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 PCI Procedures PHASE II CARDIAC REHAB Adrienne Marin MD [address] [place] [address] Phone: tel: fax: [facility] [address] [place] [address] Phone: tel: fax: Referral ID Status Reason Start Date Expiration Date V isits Requested Visits Authorized New Request 08/14/2024 [id number] [phone] Encounter Details Date Type Department Care Team (Late st Contact Info) Description 08/22/2024 1:24 PM DIRECTOR SPEECH Hospital Encounter [facility] [address] [place] [address] Adrienne Marin MD [address] [place] [address] Arrived Social History Tobacco Use Types Packs/Day Years Used Date Smoking Tobacco: Never Passive Smoke Exposure: Never Smokeless Tobacco: Never Comments:non-smoker Alcohol Use Standard Drinks/Week Comments No 0 (1 standard drink = 0.6 oz pur e alcohol) [facility] Utilities Answer Date Recorded In the past 12 months has th e electric, gas, oil, or water company threatened to [...] place to sleep or slept in a mcc (including now)? No 05/13/2023 Housing Stability Vital Sign Answer Jayden e Recorded In the last 12 months, was t here a time when you were not able to pay the mortgage or rent on time? No 07/15/2024 In the past 12 months, how m any times have you moved where you were living? 0 07/15/2024 At any time in the past 12 [facility], were you homeless or living in a mcc (including now)? No 07/15/2024 Sex and Gender Information Value Date Recorded Sex Assigned at Male 07/08/2024 7:30 AM DIRECTOR SPEECH Legal Sex Male 8:56 PM CDT Gender Identity Male 07/08/2024 7:30 AM DIRECTOR SPEECH Sexual Orientation Straight 07/08/2024 7: 30 AM DIRECTOR SPEECH documented as of this encounter Functional Status [...] Parsons RN Active * Do you have difficulty dressing or bathing? Answer Date of Assessment Author Status No 07/15/2024 10:54 PM Moe Parsons RN Active * Because of a physical, mental, or emotional condition, do you have difficulty doing errands alone such as visiting a doctor's office or shopping? Answer Date of Assessment Author Status No 07/15/2024 10:54 PM DIRECTOR SPEECH Moe Wilkins RN Active documented as of this encounter Mental Status * Because of a physical, mental, or emotional condition, do you have serious difficulty concentrating, remembering, or making decisions? Answer Entry Date Author Status No 07/15/2024 10:54 PM DIRECTOR SPEECH Moe Wilkins RN Active documented in this encounter Plan of Treatment Upcoming Encounters Date Type Department Care Team (Late st Contact Info) Description 08/25/2024 1:30 PM DIRECTOR SPEECH Appointment [facility] Critical [facility] [place] [address] Adrienne Marin MD [address] [place] [phone] 08/27/2024 1:30 PM DIRECTOR SPEECH [facility]ment [facility] [place] [address] Adrienne Marin MD [address] [place] [phone] 08/29/2024 1:30 PM DIRECTOR SPEECH Appointment [facility] [place] [place] [address] Adrienne Marin MD [address] [place] [phone] 09/01/2024 11:30 AM CDT Office Visit [facility], [facility] [address], [place] [address] Anders Palacio NP [facility] [address] [place] [address] 09/01/2024 1:30 PM CDT Appointment [facility] [place] [place] [address] Adrienne Marin MD [address] [place] [phone] 09/03/2024 1:30 PM CDT Appointment [facility] [address] [place] [address] Adrienne Marin MD [address] [place] [phone] 09/05/2024 1:30 PM CDT Appointment [facility] [address] [place] [address] Adrienne Marin MD [address] [place] [phone] 09/08/2024 1:30 PM CDT Appointment [facility] [address] [place] [address] Adrienne Marin MD [address] [place] [phone] 09/10/2024 1:30 PM CDT Appointment [facility] [place] [address] Adrienne Marin MD [address] [place] [phone] 09/12/2024 1:30 PM CDT Appointment [facility] [address] [place] [address] Adrienne Marin MD [address] [place] [phone] 09/15/2024 1:30 PM CDT Appointment [facility] [address] [place] [address] Adrienne Marin MD [address] [place] [phone] 09/17/2024 1:30 PM CDT Appointment [facility] [address] [place] [address] [place] [address] Adrienne Marin MD [address] [place] [phone] 09/19/2024 1:30 PM CDT Appointment [facility] [address] [place] [address] [place] [address] Adrienne Marin MD [address] [place] [phone] 09/22/2024 1:30 PM CDT Appointment [facility] [address] [place] [address] [place] [address] Adrienne Marin MD [address] [place] [phone] 09/24/2024 1:30 PM CDT Appointment [facility] [address] [place] [address] [place] [address] Adrienne Marin MD [address] [place] [phone] 09/26/2024 1:30 PM CDT Appointment [facility] [address] [place] [address] [place] [address] Adrienne Marin MD [address] [place] [phone] 09/29/2024 1:30 PM CDT Appointment [facility] [address] [place] [address] Adrienne Marin MD [address] [place] [phone] 10/01/2024 1:30 PM CDT Appointment [facility] [address] [place] [address] Adrienne Marin MD [address] [place] [phone] 10/03/2024 1:30 PM CDT Appointment [facility] [address] [place], [place] [address] [address] Adrienne Marin MD [address] [place] [phone] 10/06/2024 1:30 PM CDT Appointment [facility] Critical access [place] [address] Adrienne Marin MD [address] [place] [phone] 10/08/2024 1:30 PM CDT Appointment [facility] Critical access [place] [address] Adrienne Marin MD [address] [place] [phone] 10/10/2024 1:30 PM CDT Appointment [facility] Critical access [place] [address] Adrienne Marin MD [address] [place] [phone] 10/13/2024 1:30 PM CDT Appointment [facility] [address] [place] [address] Adrienne Marin MD [address] [place] [phone] 10/15/2024 1:30 PM CDT Appointment [facility] [address] [place], [place] [address] [address] Adrienne Marin MD [address] [place] [phone] 10/17/2024 1:30 PM CDT Appointment [facility] [address] [place] [address] [address] Adrienne Marin MD [address] [place] [phone] 10/20/2024 1:30 PM CDT Appointment [facility] [address] [place] [address] [address] Adrienne Marin MD [address] [place] [phone] 10/22/2024 1:30 PM CDT Appointment [facility] Critical access [place] [address] Adrienne Marin MD [address] [place] [phone] 10/24/2024 1:30 PM CDT Appointment [facility] Critical access [place] [address] Adrienne Marin MD [address] [place] [phone] 10/27/2024 1:30 PM CDT Appointment [facility] [address] [place] [address] Adrienne Marin MD [address] [place] [phone] 10/29/2024 1:30 PM CDT Appointment [facility] [address] [place] [address] Adrienne Marin MD [address] [place] [phone] 10/31/2024 1:30 PM CDT Appointment [facility] [place] [address] Adrienne Marin MD [address] [place] [phone] 11/03/2024 1:30 PM CDT Appointment [facility] Critical access [place] [address] Adrienne Marin MD [address] [place] [phone] 11/05/2024 1:30 PM CDT Appointment [facility] [place] [address] Adrienne Marin MD [address] [place] [phone] 11/07/2024 1:30 PM CDT Appointment [facility] [place] [address] Adrienne Marin MD [address] [place] [phone] 11/07/2024 2:40 PM CDT Office Visit [facility] Medical Group Diabetes and Endocrinology - [place] [address] [facility] [place] [phone] Hannah Garrison MD [address] [place] [address] 11/10/2024 1:30 PM CDT Appointment [facility] [address] [place] [address] Adrienne Marin MD [address] [place] [phone] 11/12/2024 1:30 PM CDT Appointment [facility] [address] [place] [address] Adrienne Marin MD [address] [place] [phone] 11/14/2024 1:30 PM CDT Appointment [facility] [address] [place] [address] Adrienne Marin MD [address] [place] [phone] 11/19/2024 1:30 PM CDT Appointment [facility] [address] [place] [address] Adrienne Marin MD [address] [place] [phone] 11/21/2024 1:30 PM CDT Appointment [facility] [address] [place] [address] Adrienne Marin MD [address] [place] [phone] 11/24/2024 1:30 PM CDT Appointment [facility] [address] [place] [address] [address] [place] [address] Adrienne Marin MD [address] [place] [phone] 11/26/2024 1:30 PM CDT Appointment [facility] [address] [place] [address] [address] [place] [address] Adrienne Marin MD [address] [place] [phone] documented as of this encounter Goals [...] home upon discharge General No Ayleen Garcia, SILK SCREEN PRINTER MACHINE documented as of this encounter Visit Diagnoses Not on filedocumented in this encounter Additional Health Concerns Assessment Noted Time PHQ-9 Depression Total Score: 0 11/19/19 22 3:11 PM CDT documented as of this encounter Care Teams Tempering Oven Operator Relationship Specialty Start Date End Date Adrienne Marin MD [address] [place] [address] PCP - General INTERNAL MEDICINE 05/09/24 Gladys Sanchez MD [address] [place] [address] [place] Chart Writer CARDIOVASCULAR DISEASE 05/28/19 documented as of this encounter
--- OUTSIDE RECORDS SUMMARY | 2024-08-23 12:49 | XMS_ITS | Encounter Summary ---
Author Organization [facility] Address [facility] [place] [address] Care Team Providers Care Telecom Coordinator Name Role Phone Adrian Lee MD Primary Care Provider [phone] Gladys Sanchez MD Unavailable [phone] Adrienne Marin MD Primary Care Provider [phone] Encounter Details Date Type Department Care Team (Late st Contact Info) Description 10/26/2020 Abstract [facility] [address] [place] [address] Social History Tobacco Use Types Packs/Day Years Used Date Smoking Tobacco: Never Smokeless Tobacco: Never Alcohol Use Standard Drinks/Week Comments No 0 (1 standard drink = 0.6 oz pur e alcohol) AUDIT-C Answer Date Recorded Frequency of Alcohol Consumption Never 07/02/2019 Average Number of Drinks Not on file 020 Frequency of Binge Drinking Not on file 01/2020 PHQ-2 Answer Date Recorded PHQ-2 Score - If the patient scores above 3, please move on to questions 3-9 0 09/14/2020 Sex and Gender Information Value Date Recorded Sex Assigned at Male 07/08/2024 7:30 AM CITY MAGISTRATE Legal Sex Male 8:56 PM CDT Gender Identity Male 07/08/2024 7:30 AM CITY MAGISTRATE Sexual Orientation Straight 07/08/2024 7: 30 AM CITY MAGISTRATE COVID-19 Exposure Response Date Recorded In the last month, have you been in contact with someone who was confirmed or suspected to have Coronavirus / COVID-19? No / Unsure 10/02/2020 11:49 AM CDT documented as of this encounter Plan of Treatment Upcoming Encounters Date Type Department Care Team (Late st Contact Info) Description 08/25/2024 1:30 PM CITY MAGISTRATE Appointment [facility] [place] [address] Adrienne Marin MD [address] [place] [phone] 08/27/2024 1:30 PM CITY MAGISTRATE Appointment [facility] [place] [address] Adrienne Marin MD [address] [place] [phone] 08/29/2024 1:30 PM CITY MAGISTRATE Appointment [facility] [place] [address] Adrienne Marin MD [address] [place] [phone] 09/01/2024 11:30 AM CDT Office Visit [address] [address] Anders Palacio, COURTNEY [facility] [address] [place] [address] 09/01/2024 1:30 PM CDT Appointment [facility] [place] [address] Adrienne Marin MD [address] [place] [phone] 09/03/2024 1:30 PM CDT Appointment [facility] [place] [address] Adrienne Marin MD [address] [place] [phone] 09/05/2024 1:30 PM CDT Appointment [facility] [address] [place] [address] Adrienne Marin MD [address] [place] [phone] 09/08/2024 1:30 PM CDT Appointment [facility] [address] [place] [address] Adrienne Marin MD [address] [place] [phone] 09/10/2024 1:30 PM CDT Appointment [facility] [place] [address] Adrienne Marin MD [address] [place] [phone] 09/12/2024 1:30 PM CDT Appointment [facility] [place] [address] Adrienne Marin MD [address] [place] [phone] 09/15/2024 1:30 PM CDT Appointment [facility] [place] [address] Adrienne Marin MD [address] [place] [phone] 09/17/2024 1:30 PM CDT Appointment [facility] [address] [place] [address] Adrienne Marin MD [address] [place] [phone] 09/19/2024 1:30 PM CDT Appointment [facility] [address] [place] [address] Adrienne Marin MD [address] [place] [phone] 09/22/2024 1:30 PM CDT Appointment [facility] [address] [place] [address] Adrienne Marin MD [address] [place] [phone] 09/24/2024 1:30 PM CDT Appointment [facility] [place] [address] Adrienne Marin MD [address] [place] [phone] 09/26/2024 1:30 PM CDT Appointment [facility] [place] [address] Adrienne Marin MD [address] [place] [phone] 09/29/2024 1:30 PM CDT Appointment [facility] [place] [address] Adrienne Marin MD [address] [place] [phone] 10/01/2024 1:30 PM CDT Appointment [facility] [address] [place] [address] Adrienne Marin MD [address] [place] [phone] 10/03/2024 1:30 PM CDT App[facility]ment [facility] [place] [address] Adrienne Marin MD [address] [place] [phone] 10/06/2024 1:30 PM CDT Appointment [facility] [address] [place], [place] [address] [address] Adrienne Marin MD [address] [place] [phone] 10/08/2024 1:30 PM CDT Appointment [facility] [address] [place], [place] [address] [address] Adrienne Marin MD [address] [place] [phone] 10/10/2024 1:30 PM CDT Appointment [facility] [address] [place] [address] Adrienne Marin MD [address] [place] [phone] 10/13/2024 1:30 PM CDT Appointment [facility] [place] [address] Adrienne Marin MD [address] [place] [phone] 10/15/2024 1:30 PM CDT Appointment [facility] [address] [place] [address] [place] [address] Adrienne Marin MD [address] [place] [phone] 10/17/2024 1:30 PM CDT Appointment [facility] [address] [place] [address] [place] [address] Adrienne Marin MD [address] [place] [phone] 10/20/2024 1:30 PM CDT Appointment [facility] [address] [place] [address] [place] [address] Adrienne Marin MD [address] [place] [phone] 10/22/2024 1:30 PM CDT Appointment [facility] [address] [place], [place] [address] [address] Adrienne Marin MD [address] [place] [phone] 10/24/2024 1:30 PM CDT Appointment [facility] [place] [address] Adrienne Marin MD [address] [place] [phone] 10/27/2024 1:30 PM CDT Appointment [facility] [address] [place], [place] [address] [address] Adrienne Marin MD [address] [place] [phone] 10/29/2024 1:30 PM CDT Appointment [facility] [address] [place] [address] Adrienne Marin MD [address] [place] [phone] 10/31/2024 1:30 PM CDT Appointment [facility] [address] [place] [address] Adrienne Marin MD [address] [place] [phone] 11/03/2024 1:30 PM CDT Appointment [facility] [place] [address] Adrienne Marin MD [address] [place] [phone] 11/05/2024 1:30 PM CDT Appointment [facility] [place] [address] Adrienne Marin MD [address] [place] [phone] 11/07/2024 1:30 PM CDT Appointment [facility] [place] [place] [address] Adrienne Marin MD [address] [place] [phone] 11/07/2024 2:40 PM CDT Office Visit [facility] Medical Group Diabetes and Endocrinology - [address] [phone] Hannah Garrison MD [address] [place] [address] [place] [address] 11/10/2024 1:30 PM CDT Appointment [facility] [address] [place] [address] Adrienne Marin MD [address] [place] [phone] 11/12/2024 1:30 PM CDT Appointment [facility] [facility] [address] Adrienne Marin MD [address] [place] [phone] 11/14/2024 1:30 PM CDT Appointment [facility] [address] [place], [place] [address] [address] Adrienne Marin MD [address] [place] [phone] 11/19/2024 1:30 PM CDT Appointment [facility] [address] [place], [place] [address] [address] Adrienne Marin MD [address] [place] [phone] 11/21/2024 1:30 PM CDT Appointment [facility] [place] [address] Adrienne Marin MD [address] [place] [phone] 11/24/2024 1:30 PM CDT Appointment [facility] [place] [address] Adrienne Marin MD [address] [place] [phone] 11/26/2024 1:30 PM CDT Appointment [facility] [address] [place] [address] Adrienne Marin MD [address] [place] [phone] documented as of this encounter Visit Diagnoses Not on filedocumented in this encounter Additional Health Concerns Infection Onset Date Last Indicated Resolved Time COVID-19 Rule Out 07/19/2021 07/19/2021 07/19/2021 9:17 PM CITY MAGISTRATE COVID-19 Rule Out 07/19/2021 07/19/2021 07/20/2021 7:01 PM CITY MAGISTRATE COVID-19 Rule Out 08/18/2021 08/18/2021 08/18/2021 12:03 PM CITY MAGISTRATE COVID-19 Confirmed 08/18/2021 08/18/2021 12:32 AM CDT COVID-19 Rule Out 09/13/2021 09/13/2021 09/13/2021 5:00 AM CDT COVID-19 Rule Out 05/23/2022 05/23/2022 05/23/2022 3:38 PM CITY MAGISTRATE Influenza - Seasonal 05/23/2022 05/23/2022 023 12:34 AM CITY MAGISTRATE COVID-19 Rule Out 05/13/2023 05/13/2023 05/13/2023 4:14 PM CITY MAGISTRATE COVID-19 Rule Out 05/13/2023 05/13/2023 05/14/2023 1:35 AM CITY MAGISTRATE COVID-19 Rule Out 07/08/2023 07/08/2023 07/08/2023 5:34 PM CITY MAGISTRATE COVID-19 Rule Out 07/07/2024 07/07/2024 07/07/2024 7:39 AM CITY MAGISTRATE documented as of this encounter Care Teams Telecom Coordinator Relationship Specialty Start Date End Date Adrian Lee MD [address] [place] [phone] PCP - General FAMILY PRACTICE 04/22/18 05/08/24 Adrienne Marin MD [address] [place] [address] PCP - General INTERNAL MEDICINE 05/09/24 Gladys Sanchez MD [address] [place] [address] [place] Block Saw Operator CARDIOVASCULAR DISEASE 05/28/19 documented as of this encounter
--- NOTE | 2024-08-23 13:10 | ECG_ITS ---
Test Date: 2024-08-23 13:26:37 Measurements Intervals [place] Rate: 89 P: 41 MI: 129 QRS: -63 QRSD: 158 T: 31 QT: 391 QTc: 478 Interpretive Statements SINUS RHYTHM RIGHT BUNDLE BRANCH BLOCK [120+ ms QRS DURATION, UPRIGHT V1, 40+ ms S IN I/aVL/V4/V5/V6] LEFT ANTERIOR FASCICULAR BLOCK [QRS AXIS <= -45, QR IN I, RS IN II] ABNORMAL ECG Electronically Signed On 08-23-2024 13:38:23 LOAN SUPERVISOR by Franklin Mcneill M.D.
--- OUTSIDE RECORDS SUMMARY | 2024-08-23 13:42 | XMS_ITS | Encounter Summary ---
Author Organization [facility] Address Critical access hospital[address] [place] [address] Care Team Providers Care Breaking Machine Operator Name Role Phone Adrian Lee MD Primary Care Provider [phone] Gladys Sanchez MD Unavailable [phone] Adrienne Marin MD Primary Care Provider [phone] Encounter Details Date Type Department Care Team (Late st Contact Info) Description 01/24/2023 Abstract [facility] [address] [place] [id number] Flakito Hernandez MD Social History Tobacco Use [...] Sex Assigned at Male 07/08/2024 7:30 AM HEAVY EQUIPMENT FIELD MECHANIC Legal Sex Male 8:56 PM CDT Gender Identity Male 07/08/2024 7:30 AM HEAVY EQUIPMENT FIELD MECHANIC Sexual Orientation Straight 07/08/2024 7: 30 AM HEAVY EQUIPMENT FIELD MECHANIC documented as of this encounter Functional Status * RETIRED Are you deaf or do you have serious difficulty hearing Answer Date of Assessment Author Status Yes 06/14/2022 7:00 PM HEAVY EQUIPMENT FIELD MECHANIC Activ e * RETIRED Are you blind or do you have serious difficulty seeing, even when wearing glasses? Answer Date of Assessment Author Status No 06/14/2022 7:00 PM HEAVY EQUIPMENT FIELD MECHANIC Activ e * Do you have serious [...] st Contact Info) Description 08/25/2024 1:30 PM HEAVY EQUIPMENT FIELD MECHANIC Appointment [facility] [address] [place] [address] Adrienne Marin MD [address] [place] [phone] 08/27/2024 1:30 PM HEAVY EQUIPMENT FIELD MECHANIC Appointment [facility] [place] [place] [address] Adrienne Marin MD [address] [place] [phone] 08/29/2024 1:30 PM HEAVY EQUIPMENT FIELD MECHANIC Appointment [facility] [place] [address] Adrienne Marin MD [address] [place] [phone] 09/01/2024 11:30 AM CDT [facility] [address] [place] [address] Anders Palacio, COURTNEY [facility] [address] [place] [address] 09/01/2024 1:30 PM CDT Appointment [facility] [address] [place] [address] Adrienne Marin MD [address] [place] [phone] 09/03/2024 1:30 PM CDT Appointment [facility] [place] [address] Adrienne Marin MD [address] [place] [phone] 09/05/2024 1:30 PM CDT Appointment [facility] [place] [address] Adrienne Marin MD [address] [place] [phone] 09/08/2024 1:30 PM CDT App[facility]ment [facility] [place] [address] Adrienne Marin MD [address] [place] [phone] 09/10/2024 1:30 PM CDT Appointment [facility] [place] [address] Adrienne Marin MD [address] [place] [phone] 09/12/2024 1:30 PM CDT Appointment [facility] [address] [place] [address] Adrienne Marin MD [address] [place] [phone] 09/15/2024 1:30 PM CDT Appointment [facility] [address] [place] [address] Adrienne Marin MD [address] [place] [phone] 09/17/2024 1:30 PM CDT Appointment [facility] [place] [address] Adrienne Marin MD [address] [place] [phone] 09/19/2024 1:30 PM CDT Appointment [facility] [place] [address] Adrienne Marin MD [address] [place] [phone] 09/22/2024 1:30 PM CDT Appointment [facility] [place] [address] Adrienne Marin MD [address] [place] [phone] 09/24/2024 1:30 PM CDT Appointment [facility] [place] [address] Adrienne Marin MD [address] [place] [phone] 09/26/2024 1:30 PM CDT Appointment [facility] [address] [place] [address] Adrienne Marin MD [address] [place] [phone] 09/29/2024 1:30 PM CDT Appointment [facility] [address] [place] [address] Adrienne Marin MD [address] [place] [phone] 10/01/2024 1:30 PM CDT Appointment [facility] [place] [address] Adrienne Marin MD [address] [place] [phone] 10/03/2024 1:30 PM CDT Appointment [facility] [place] [address] Adrienne Marin MD [address] [place] [phone] 10/06/2024 1:30 PM CDT Appointment [facility] [place] [address] Adrienne Marin MD [address] [place] [phone] 10/08/2024 1:30 PM CDT Appointment [facility] [address] [place] [address] Adrienne Marin MD [address] [place] [phone] 10/10/2024 1:30 PM CDT Appointment [facility] [address] [place] [address] Adrienne Marin MD [address] [place] [phone] 10/13/2024 1:30 PM CDT Appointment [facility] [place] [address] Adrienne Marin MD [address] [place] [phone] 10/15/2024 1:30 PM CDT Appointment [facility] [place] [address] Adrienne Marin MD [address] [place] [phone] 10/17/2024 1:30 PM CDT Appointment [facility] [place] [address] Adrienne Marin MD [address] [place] [phone] 10/20/2024 1:30 PM CDT Appointment [facility] [place] [address] Adrienne Marin MD [address] [place] [phone] 10/22/2024 1:30 PM CDT Appointment [facility] [address] [place] [address] Adrienne Marin MD [address] [place] [phone] 10/24/2024 1:30 PM CDT Appointment [facility] [address] [place] [address] Adrienne Marin MD [address] [place] [phone] 10/27/2024 1:30 PM CDT Appointment [facility] [address] [place], [place] [address] [address] Adrienne Marin MD [address] [place] [phone] 10/29/2024 1:30 PM CDT Appointment [facility] [place] [address] Adrienne Marin MD [address] [place] [phone] 10/31/2024 1:30 PM CDT Appointment [facility] [place] [address] Adrienne Marin MD [address] [place] [phone] 11/03/2024 1:30 PM CDT Appointment [facility] [address] [place] [address] Adrienne Marin MD [address] [place] [phone] 11/05/2024 1:30 PM CDT Appointment [facility] [address] [place] [address] Adrienne Marin MD [address] [place] [phone] 11/07/2024 1:30 PM CDT Appointment [facility] [address] [place] [address] Adrienne Marin MD [address] [place] [phone] 11/07/2024 2:40 PM CDT Office Visit [facility] Diabetes and Endocrinology - [address] [phone] Hannah Garrison MD [address] [place] [address] 11/10/2024 1:30 PM CDT Appointment [facility] [place] [address] Adrienne Marin MD [address] [place] [phone] 11/12/2024 1:30 PM CDT Appointment [facility] [address] [place] [address] Adrienne Marin MD [address] [place] [phone] 11/14/2024 1:30 PM CDT Appointment [facility] [address] [place] [address] Adrienne Marin MD [address] [place] [phone] 11/19/2024 1:30 PM CDT Appointment [facility] [address] [place] [address] [address] [place] [address] Adrienne Marin MD [address] [place] [phone] 11/21/2024 1:30 PM CDT Appointment [facility] [address] [place] [address] [address] [place] [address] Adrienne Marin MD [address] [place] [phone] 11/24/2024 1:30 PM CDT Appointment [facility] [address] [place] [address] [place] [address] Adrienne Marin MD [address] [place] [phone] 11/26/2024 1:30 PM CDT [facility] [address] [place] [address] [address] [place] [address] Adrienne Marin MD [address] [place] [phone] documented as of this encounter Goals [...] home upon discharge General No Ayleen Garcia, [employer] ATTENDANT documented as of this encounter Visit Diagnoses Not on filedocumented in this encounter Additional Health Concerns Infection Onset Date Last Indicated Resolved Time COVID-19 Rule Out 05/13/2023 05/13/2023 05/13/2023 4:14 PM HEAVY EQUIPMENT FIELD MECHANIC COVID-19 Rule Out 05/13/2023 05/13/2023 05/14/2023 1:35 AM HEAVY EQUIPMENT FIELD MECHANIC COVID-19 Rule Out 07/08/2023 07/08/2023 07/08/2023 5:34 PM HEAVY EQUIPMENT FIELD MECHANIC COVID-19 Rule Out 07/07/2024 07/07/2024 07/07/2024 7:39 AM HEAVY EQUIPMENT FIELD MECHANIC Assessment Noted Time PHQ-9 Depression Total Score: 0 11/19/19 3:11 PM CDT documented as of this encounter Care Teams Breaking Machine Operator Relationship Specialty Start Date End Date Adrian Lee MD [address] [facility] [place] [address] PCP - General FAMILY PRACTICE 04/22/18 05/08/24 Adrienne Marin MD [address] [place] [phone] PCP - General INTERNAL MEDICINE 05/09/24 Gladys Sanchez MD [address] [place] [id number] [place] [facility] Concierge CARDIOVASCULAR DISEASE 05/28/19 documented as of this encounter
--- OUTSIDE RECORDS SUMMARY | 2024-08-23 13:42 | XMS_ITS | Encounter Summary ---
Author Organization [facility] Address [facility] [place] [address] Care Team Providers Care Bus Matron Name Role Phone Adrian Lee MD Primary Care Provider [phone] Gladys Sanchez MD Unavailable [phone] Adrienne Marin MD Primary Care Provider [phone] Encounter Details Date Type Department Care Team (Late st Contact Info) Description 05/21/2023 Hospital Follow-up Call [facility] Cardi[facility] Care Unit [address] [place] [address] Amanda Ohara RN Social History Tobacco Use Types Packs/Day Years Used Date Smoking Tobacco: Never Passive Smoke Exposure: Never Smokeless Tobacco: Never Comments:non-smoker Alcohol Use Standard Drinks/Week Comments No 0 (1 standard drink = 0.6 oz pur e alcohol) [facility] Utilities Answer Date Recorded In the past 12 months has [employer] gas, oil, or water [employer] threatened to shut off services in your [...] in a mcc (including now)? No 05/13/2023 Sex and Gender Information Value Date Recorded Sex Assigned at Male 07/08/2024 7:30 AM DIGITAL STRATEGY DIRECTOR Legal Sex Male 8:56 PM CDT Gender Identity Male 07/08/2024 7:30 AM DIGITAL STRATEGY DIRECTOR Sexual Orientation Straight 07/08/2024 7: 30 AM DIGITAL STRATEGY DIRECTOR documented as of this encounter Functional Status [...] st Contact Info) Description 08/25/2024 1:30 PM DIGITAL STRATEGY DIRECTOR Appointment [facility] [address] [place], [place] [address] [address] Adrienne Marin MD [address] [place] [phone] 08/27/2024 1:30 PM DIGITAL STRATEGY DIRECTOR Appointment [facility] [place] [address] Adrienne Marin MD [address] [place] [phone] 08/29/2024 1:30 PM DIGITAL STRATEGY DIRECTOR Appointment [facility] [place] [address] Adrienne Marin MD [address] [place] [phone] 09/01/2024 11:30 AM CDT Office Visit [facility] [address], [facility] [address] [place] [address] Anders Palacio, COURTNEY [facility] [address] [place] [address] 09/01/2024 1:30 PM CDT Appointment [facility] [address] [place] [address] Adrienne Marin MD [address] [place] [phone] 09/03/2024 1:30 PM CDT Appointment [facility] [address] [place] [address] Adrienne Marin MD [address] [place] [phone] 09/05/2024 1:30 PM CDT Appointment [facility] [address] [place] [address] Adrienne Marin MD [address] [place] [phone] 09/08/2024 1:30 PM CDT Appointment [facility] [address] [place] [address] Adrienne Marin MD [address] [place] [phone] 09/10/2024 1:30 PM CDT Appointment [facility] [address] [place] [address] Adrienne Marin MD [address] [place] [phone] 09/12/2024 1:30 PM CDT Appointment [facility] [address] [place] [address] Adrienne Marin MD [address] [place] [phone] 09/15/2024 1:30 PM CDT Appointment [facility] [address] [place] [address] Adrienne Marin MD [address] [place] [phone] 09/17/2024 1:30 PM CDT Appointment [facility] [place] [address] Adrienne Marin MD [address] [place] [phone] 09/19/2024 1:30 PM CDT Appointment [facility] [place] [address] Adrienne Marin MD [address] [place] [phone] 09/22/2024 1:30 PM CDT Appointment [facility] [place] [address] Adrienne Marin MD [address] [place] [phone] 09/24/2024 1:30 PM CDT Appointment [facility] [place] [address] Adrienne Marin MD [address] [place] [phone] 09/26/2024 1:30 PM CDT Appointment [facility] [address] [place] [address] Adrienne Marin MD [address] [place] [phone] 09/29/2024 1:30 PM CDT Appointment [facility] [address] [place] [address] Adrienne Marin MD [address] [place] [phone] 10/01/2024 1:30 PM CDT Appointment [facility] [place] [address] Adrienne Marin MD [address] [place] [phone] 10/03/2024 1:30 PM CDT Appointment [facility] [place] [address] Adrienne Marin MD [address] [place] [phone] 10/06/2024 1:30 PM CDT Appointment [facility] [place] [address] Adrienne Marin MD [address] [place] [phone] 10/08/2024 1:30 PM CDT Appointment [facility] [place] [address] Adrienne Marin MD [address] [place] [phone] 10/10/2024 1:30 PM CDT Appointment [facility] [address] [place] [address] Adrienne Marin MD [address] [place] [phone] 10/13/2024 1:30 PM CDT Appointment [facility] [address] [place] [address] Adrienne Marin MD [address] [place] [phone] 10/15/2024 1:30 PM CDT Appointment [facility] [address] [address] Adrienne Marin MD [address] [place] [phone] 10/17/2024 1:30 PM CDT Appointment [facility] [place] [address] Adrienne Marin MD [address] [place] [phone] 10/20/2024 1:30 PM CDT Appointment [facility] [place] [address] Adrienne Marin MD [address] [place] [phone] 10/22/2024 1:30 PM CDT Appointment [facility] [address] [place] [address] Adrienne Marin MD [address] [place] [phone] 10/24/2024 1:30 PM CDT Appointment [facility] [address] [place] [address] Adrienne Marin MD [address] [place] [phone] 10/27/2024 1:30 PM CDT Appointment [facility] [address] [place], [place] [address] [address] Adrienne Marin MD [address] [place] [phone] 10/29/2024 1:30 PM CDT Appointment [facility] [address] [place] [address] [place] [address] Adrienne Marin MD [address] [place] [phone] 10/31/2024 1:30 PM CDT Appointment [facility] [place] [address] Adrienne Marin MD [address] [place] [phone] 11/03/2024 1:30 PM CDT Appointment [facility] [place] [address] Adrienne Marin MD [address] [place] [phone] 11/05/2024 1:30 PM CDT Appointment [facility] [address] [place] [address] Adrienne Marin MD [address] [place] [phone] 11/07/2024 1:30 PM CDT Appointment [facility] [address] [place] [address] Adrienne Marin MD [address] [place] [phone] 11/07/2024 2:40 PM CDT Office Visit [facility] Medical Group Diabetes and Endocrinology - [address] [phone] Hannah Garrison MD [address] [place] [address] 11/10/2024 1:30 PM CDT Appointment [facility] [place] [address] Adrienne Marin MD [address] [place] [phone] 11/12/2024 1:30 PM CDT Appointment [facility] [place] [address] Adrienne Marin MD [address] [place] [phone] 11/14/2024 1:30 PM CDT Appointment [facility] [place] [address] Adrienne Marin MD [address] [place] [phone] 11/19/2024 1:30 PM CDT Appointment [facility] [address] [place] [address] [place] [address] Adrienne Marin MD [address] [place] [phone] 11/21/2024 1:30 PM CDT Appointment [facility] [address] [place] [address] [place] [address] Adrienne Marin MD [address] [place] [phone] 11/24/2024 1:30 PM CDT Appointment [facility] [address] [place] [address] [place] [address] Adrienne Marin MD [address] [place] [phone] 11/26/2024 1:30 PM CDT Appointment [facility] [address] [place] [address] [place] [address] Adrienne Marin MD [address] [place] [phone] documented as of this encounter Goals [...] home upon discharge General No Ayleen Garcia, LITHARGE SUPERVISOR documented as of this encounter Visit Diagnoses Not on filedocumented in this encounter Additional Health Concerns Infection Onset Date Last Indicated Resolved Time COVID-19 Rule Out 07/08/2023 07/08/2023 07/08/2023 5:34 PM DIGITAL STRATEGY DIRECTOR COVID-19 Rule Out 07/07/2024 07/07/2024 07/07/2024 7:39 AM DIGITAL STRATEGY DIRECTOR Assessment Noted Time PHQ-9 Depression Total Score: 0 11/19/19 22 3:11 PM CDT documented as of this encounter Care Teams Bus Matron Relationship Specialty Start Date End Date Adrian Lee MD [address] [place] [phone] PCP - General FAMILY PRACTICE 04/22/18 05/08/24 Adrienne Marin MD [address] [place] [phone] PCP - General INTERNAL MEDICINE 05/09/24 Gladys Sanchez MD [address] [place] [address] [facility] CARDIOVASCULAR DISEASE 05/28/19 documented as of this encounter
--- OUTSIDE RECORDS SUMMARY | 2024-08-23 13:42 | XMS_ITS | Encounter Summary ---
Author Organization [facility] Address [facility] [place] [address] Care Team Providers Care Preparer Making Department Name Role Phone Adrian Lee MD Primary Care Provider [phone] Gladys Sanchez MD Unavailable [phone] Adrienne Marin MD Primary Care Provider [phone] Encounter Details Date Type Department Care Team (Late st Contact Info) Description 06/20/2022 Hospital Follow-up Call [facility] [address] [place] [address] Asia Weiner, RN Social History [...] Sex Assigned at Male 07/08/2024 7:30 AM CIVIL CAD TECH Legal Sex Male 8:56 PM CDT Gender Identity Male 07/08/2024 7:30 AM CIVIL CAD TECH Sexual Orientation Straight 07/08/2024 7: 30 AM CIVIL CAD TECH COVID-19 Exposure Response Date Recorded In the last 10 days, have yo u been in contact with someone who was confirmed or suspected to have Coronavirus/COVID-19? No / Unsure 06/14/2022 6:51 PM CIVIL CAD TECH documented as of this encounter Functional Status * RETIRED Are you deaf or do you have serious difficulty hearing Answer Date of Assessment Author Status Yes 06/14/2022 7:00 PM CIVIL CAD TECH Activ e * RETIRED Are you blind or do you have serious difficulty seeing, even when wearing glasses? Answer Date of Assessment Author Status No 06/14/2022 7:00 PM CIVIL CAD TECH Activ e * Do you have serious difficulty walking or climbing stairs? Answer Date of Assessment Author Status No 06/14/2022 7:00 PM CIVIL CAD TECH Cathy Giles RN Active * Do you have difficulty dressing or bathing? Answer Date of Assessment Author Status No 06/14/2022 7:00 PM CIVIL CAD TECH Cathy Giles RN Active * Because of a physical, mental, or emotional condition, do you have difficulty doing errands alone such as visiting a doctor's office or shopping? Answer Date of Assessment Author Status No 06/14/2022 7:00 PM CIVIL CAD TECH Cathy Giles RN Active documented as of this encounter Mental Status * Because of a physical, mental, or emotional condition, do you have serious difficulty concentrating, remembering, or making decisions? Answer Entry Date Author Status No 06/14/2022 7:00 PM CIVIL CAD TECH Cathy Giles RN Active documented in this encounter Plan of Treatment Upcoming Encounters Date Type Department Care Team (Late st Contact Info) Description 08/25/2024 1:30 PM CIVIL CAD TECH [facility]ment [facility] [place] [address] Adrienne Marin MD [address] [place] [phone] 08/27/2024 1:30 PM CIVIL CAD TECH Appointment [facility] [place] [address] Adrienne Marin MD [address] [place] [phone] 08/29/2024 1:30 PM CIVIL CAD TECH Appointment [facility] Count includes the [facility] [place] [address] Adrienne Marin MD [address] [place] [phone] 09/01/2024 11:30 AM CDT [facility] [address] [place] [address] Anders Palacio, COURTNEY [facility] [address] [place] [address] 09/01/2024 1:30 PM CDT Appointment [facility] includes the [facility] [place] [address] Adrienne Marin MD [address] [place] [phone] 09/03/2024 1:30 PM CDT Appointment [facility] includes the [facility] [place] [address] Adrienne Marin MD [address] [place] [phone] 09/05/2024 1:30 PM CDT Appointment [facility] Count includes the [facility] [place] [address] Adrienne Marin MD [address] [place] [phone] 09/08/2024 1:30 PM CDT Appointment [facility] includes the [facility] [place] [address] Adrienne Marin MD [address] [place] [phone] 09/10/2024 1:30 PM CDT Appointment [facility] [address] [place] [address] Adrienne Marin MD [address] [place] [phone] 09/12/2024 1:30 PM CDT Appointment [facility] [place] [address] Adrienne Marin MD [address] [place] [phone] 09/15/2024 1:30 PM CDT Appointment [facility] [place] [address] Adrienne Marin MD [address] [place] [phone] 09/17/2024 1:30 PM CDT Appointment [facility] [place] [address] Adrienne Marin MD [address] [place] [phone] 09/19/2024 1:30 PM CDT Appointment [facility] [place] [address] Adrienne Marin MD [address] [place] [phone] 09/22/2024 1:30 PM CDT Appointment [facility] [place] [address] Adrienne Marin MD [address] [place] [phone] 09/24/2024 1:30 PM CDT Appointment [facility] [address] [place] [address] Adrienne Marin MD [address] [place] [phone] 09/26/2024 1:30 PM CDT Appointment [facility] [place] [address] Adrienne Marin MD [address] [place] [phone] 09/29/2024 1:30 PM CDT Appointment [facility] includes the [facility] [place] [address] Adrienne Marin MD [address] [place] [phone] 10/01/2024 1:30 PM CDT Appointment [facility] Count includes the [facility] [place] [address] dArienne Marin MD [address] [place] [phone] 10/03/2024 1:30 PM CDT Appointment [facility] Count includes the [facility] [place] [address] Adrienne Marin MD [address] [place] [phone] 10/06/2024 1:30 PM CDT Appointment [facility] includes the [facility] [place] [address] Adrienne Marin MD [address] [place] [phone] 10/08/2024 1:30 PM CDT Appointment [facility] [address] [place] [address] Adrienne Marin MD [address] [place] [phone] 10/10/2024 1:30 PM CDT Appointment [facility] [address] [place] [address] Adrienne Marin MD [address] [place] [phone] 10/13/2024 1:30 PM CDT Appointment [facility] [place] [address] Adrienne Marin MD [address] [place] [phone] 10/15/2024 1:30 PM CDT Appointment [facility] [place] [address] Adrienne Marin MD [address] [place] [phone] 10/17/2024 1:30 PM CDT Appointment [facility] [place] [address] Adrienne Marin MD [address] [place] [phone] 10/20/2024 1:30 PM CDT Appointment [facility] [place] [address] Adrienne Marin MD [address] [place] [phone] 10/22/2024 1:30 PM CDT Appointment [facility] [address] [place] [address] Adrienne Marin MD [address] [place] [phone] 10/24/2024 1:30 PM CDT Appointment [facility] [address] [place] [address] Adrienne Marin MD [address] [place] [phone] 10/27/2024 1:30 PM CDT Appointment [facility] [place] [address] Adrienne Marin MD [address] [place] [phone] 10/29/2024 1:30 PM CDT Appointment [facility] [place] [address] Adrienne Marin MD [address] [place] [phone] 10/31/2024 1:30 PM CDT Appointment [facility] [place] [address] Adrienne Marin MD [address] [place] [phone] 11/03/2024 1:30 PM CDT Appointment [facility] [address] [place] [address] Adrienne Marin MD [address] [place] [phone] 11/05/2024 1:30 PM CDT Appointment [facility] includes the [facility] [place] [address] Adrienne Marin MD [address] [place] [phone] 11/07/2024 1:30 PM CDT Appointment [facility] includes [facility] [place] [address] Adrienne Marin MD [address] [place] [phone] 11/07/2024 2:40 PM CDT Office Visit [facility] Diabetes and Endocrinology - [address] [phone] Hannah Garrison MD [address] [place] [id number] 11/10/2024 1:30 PM CDT Appointment [facility] [place] [address] Adrienne Marin MD [address] [place] [phone] 11/12/2024 1:30 PM CDT Appointment [facility] [place] [address] Adrienne Marin MD [address] [place] [phone] 11/14/2024 1:30 PM CDT Appointment [facility] [address] [place] [address] [address] [place] [address] Adrienne Marin MD [address] [place] [phone] 11/19/2024 1:30 PM CDT Appointment [facility] [address] [place], [place] [address] [address] Adrienne Marin MD [address] [place] [phone] 11/21/2024 1:30 PM CDT Appointment [facility] [address] [place], [place] [address] [address] Adrienne Marin MD [address] [place] [phone] 11/24/2024 1:30 PM CDT Appointment [facility] [address] [place], [place] [address] [address] Adrienne Marin MD [address] [place] [phone] 11/26/2024 1:30 PM CDT Appointment [facility] [address] [place], [place] [address] [address] Adrienne Marin MD [address] [place] [phone] documented as of this encounter Goals Goal Patient Goal Type Associated Problems Recent Progress Patient-Stated? Author Patient will return to prior living situation and remain independent in ADLs upon discharge from hospital General No Diana Todd tire specialist - family caregiver with be involved in care transitions and discharge planning General No Nicole Cole RN Safety Patient/family will have appropriate support at home upon discharge General No Ayleen Garcia, DATABASE REPORT WRITER documented as of this encounter Visit Diagnoses Not on filedocumented in this encounter Additional Health Concerns Infection Onset Date Last Indicated Resolved Time Influenza - Seasonal 05/23/2022 05/23/2022 023 12:34 AM CIVIL CAD TECH COVID-19 Rule Out 05/13/2023 05/13/2023 05/13/2023 4:14 PM CIVIL CAD TECH COVID-19 Rule Out 05/13/2023 05/13/2023 05/14/2023 1:35 AM CIVIL CAD TECH COVID-19 Rule Out 07/08/2023 07/08/2023 07/08/2023 5:34 PM CIVIL CAD TECH COVID-19 Rule Out 07/07/2024 07/07/2024 07/07/2024 7:39 AM CIVIL CAD TECH Assessment Noted Time PHQ-9 Depression Total Score: 0 11/19/19 3:11 PM CDT documented as of this encounter Care Teams Preparer Making Department Relationship Specialty [place] [address] [place] [address] [place] [phone] PCP - General FAMILY PRACTICE 04/22/18 05/08/24 Adrienne Marin MD [address] [place] [phone] PCP - General INTERNAL MEDICINE 05/09/24 Gladys Sanchez MD [address] [place] [address] [place] [employer] CARDIOVASCULAR DISEASE 05/28/19 documented as of this encounter
--- OUTSIDE RECORDS SUMMARY | 2024-08-23 13:42 | XMS_ITS | Clinical Summary ---
Author Organization [facility] Address [address] [place] [address] Care Team Providers Care Video Tape Duplicator Name Role Phone Gladys Sanchez MD Unavailable [phone] Adrienne Marin MD Primary Care Provider [phone] Allergies Active Allergy Reactions Criticality Noted Date [...] 5-BEVEL PEN NEEDLES 31G X 5 MM [facility] [place] TWICE DAILY TO INJECT LANTUS AND VICTOZA 08/31/19 Active NIFEdipine ER (ADALAT CC) 90 MG 24 hr tablet Take 1 tablet (90 mg total) by mouth daily. 02/09/20 Active pantoprazole EC (PROTONIX) 40 MG tablet Take 1 tablet (40 mg total) by mouth daily for 30 days. 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 ([facility] HHS/HCC) Take 1 tablet (500 mg total) [...] 07/06/2024 NSTEMI (non-ST elevated myoc ardial infarction) ([facility]) 05/13/2023 Stage 3b chronic kidney disease ([facility] ) 01/03/2023 Hyperuricemia w/o signs of i nflam arthrit and tophaceous dis 07/20/2022 Hypomagnesemia 03/20/2022 Benign prostatic hyperplasia without lower urinary tract symptoms 01/09/2022 Iron deficiency anemia 08/16/2021 S/P angioplasty with stent 04/26/2018 Chronic diastolic congestive heart failure ([facility]) 04/26/2018 Type 2 diabetes mellitus wit h stage 3b chronic kidney disease, with long-term current use of insulin ([facility]) 07/19/2017 Hypertension, essential Dyslipidemia CAD (coronary artery disease) Resolved Problems Problem Noted Date Diagnosed Date Resolved Date NSTEMI (non-ST elevated myoc ardial infarction) ([facility]) 06/14/2022 05/07/2023 Edema, unspecified type 03/20/202210/23 Hypokalemia 01/09/2022 05/07/2023 Diabetes mellitus without co mplication ([facility]) 01/09/2022 04/01/2022 Intracranial bleed ([facility]) 10/09/2021 11/18/2021 Dizziness 10/08/2021 11/18/2021 Acute respiratory failure ([facility]) 08/18/2021 11/18/2021 Pneumonia due to COVID-19 virus 08/18/2021 11/18/2021 PNA (pneumonia) 07/19/2021 11/18/2021 Stage 3a chronic kidney dise ase ([facility]) 06/01/2020 01/03/2023 Femoroacetabular impingement of both hips 09/04/2019 11/18/2021 Primary osteoarthritis of left hip 08/17/2019 11/18/2021 Primary osteoarthritis of right hip 08/17/2019 11/18/2021 Trigger finger, left ring finger 05/28/2019 11/18/2021 SOB (shortness of breath) 04/26/2018 Depression 07/19/2017 11/18/2021 Encounters Date Type Department Care Team Description 08/22/2024 1:24 PM SEED SERVICE ADVISOR Hospital Encounter [facility] [address] [place] [address] Adrienne Marin MD Arrived 08/22/2024 Travel 08/18/2024 1:30 PM SEED SERVICE ADVISOR - 08/18/2024 11:59 PM SEED SERVICE ADVISOR Hospital Encounter [facility] Formerly [facility] [place] [address] Adrienne Marin MD Discharge Disposition: Home or Self Care (Routine Discharge) 08/18/2024 Travel 08/15/2024 9:55 AM SEED SERVICE ADVISOR - 08/15/2024 11:59 PM SEED SERVICE ADVISOR Hospital Encounter [facility] [address] [place] [address] [place] [address] Adrienne Marin MD Discharge Disposition: Home or Self Care (Routine Discharge) 08/15/2024 Travel 08/06/2024 [place] [address] Niesha Love LPN Follow Up Call ([facility] 07/15-08/03/24) 07/26/2024 Travel 07/24/2024 Telephone [place] [address] [place] [address] Ester Mae, gameroom technician (Swing bed referral to [facility] from [facility]/) 07/15/2024 8:40 PM SEED SERVICE ADVISOR - 08/03/2024 3:26 PM SEED SERVICE ADVISOR Hospital Encounter [facility] [place] [address] Nidia Garcia MD Malcolm, MD John Alanis, Sabrina Garcia, DO Bocanegra, MD Janet Alarcon, MD Ezio Figueroa, Carl Swnan MD Discharge Disposition: Home or Self Care (Routine Discharge) 07/15/2024 Travel 07/15/2024 Hospital Follow-up Call [facility] [place] [address] Niesha Love LPN Follow Up Call ([facility] 07/06-07/11/24) 07/07/2024 Travel 07/06/2024 10:48 PM SEED SERVICE ADVISOR - 07/11/2024 11:33 PM SEED SERVICE ADVISOR Hospital Encounter [facility] [place] [address] Denny Spaulding MD Tran, MD Lesley Limon [...] drink = 0.6 oz pur e alcohol) [facility] Utilities Answer Date Recorded In the past 12 months has [employer] gas, oil, or water company threatened to [...] in a assisted (including now)? No 05/13/2023 Housing Stability Vital Sign Answer Jayden e Recorded In the last 12 months, was t here a time when you were not able to pay the mortgage or rent on time? No 07/15/2024 In the past 12 months, how m any times have you moved where you were living? 0 07/15/2024 At any time in the past 12 m [facility], were you homeless or living in a assisted (including now)? No 07/15/2024 Sex and Gender Information Value Date Recorded Sex Assigned at Male 07/08/2024 7:30 AM SEED SERVICE ADVISOR Legal Sex Male 8:56 PM CDT Gender Identity Male 07/08/2024 7:30 AM SEED SERVICE ADVISOR Sexual Orientation Straight 07/08/2024 7: 30 AM SEED SERVICE ADVISOR Last Filed Vital Signs Vital Sign Reading Time Taken Comments Blood Pressure 151/54 08/03/2024 11:10 AM SEED SERVICE ADVISOR Pulse 65 08/03/2024 11:10 AM SEED SERVICE ADVISOR Temperature 36.6 C (97.9 F) 08/03/2024 11:10 AM SEED SERVICE ADVISOR Respiratory Rate 12 08/03/2024 11:10 AM SEED SERVICE ADVISOR Oxygen Saturation 100% 08/03/2024 11:10 AM SEED SERVICE ADVISOR Inhaled Oxygen Concentration - - Weight 73.9 kg (163 lb) 08/03/2024 4:25 AM SEED SERVICE ADVISOR Height 170.2 cm (5' 7 ) 07/28/2024 6:16 PM SEED SERVICE ADVISOR Body Mass Index 25.53 07/28/2024 6:16 PM SEED SERVICE ADVISOR Plan of Treatment Upcoming Encounters Date Type Department Care Team (Late st Contact Info) Description 08/25/2024 1:30 PM SEED SERVICE ADVISOR Appointment [place] [address] Adrienne Marin MD [address] [place] [phone] 08/27/2024 1:30 PM SEED SERVICE ADVISOR Appointment [facility] [address] [address] Adrienne Marin MD [address] [place] [phone] 08/29/2024 1:30 PM SEED SERVICE ADVISOR Appointment [facility] [place] [address] Adrienne Marin MD [address] [place] [phone] 09/01/2024 11:30 AM CDT Office Visit [facility] [address] [place] [address] Anders Palacio, COURTNEY [facility] [address] [place] [address] 09/01/2024 1:30 PM CDT Appointment [facility] [address] [place], [place] [address] [address] Adrienne Marin MD [address] [place] [phone] 09/03/2024 1:30 PM CDT Appointment [facility] [place] [address] Adrienne Marin MD [address] [place] [phone] 09/05/2024 1:30 PM CDT Appointment [facility] [address] [place] [address] Adrienne Marin MD [address] [place] [phone] 09/08/2024 1:30 PM CDT Appointment [facility] [address] [place] [address] Adrienne Marin MD [address] [place] [phone] 09/10/2024 1:30 PM CDT Appointment [facility] [address] [place] [address] Adrienne Marin MD [address] [place] [phone] 09/12/2024 1:30 PM CDT Appointment [facility] [place] [address] Adrienne Marin MD [address] [place] [phone] 09/15/2024 1:30 PM CDT Appointment [facility] [place] [address] Adrienne Marin MD [address] [place] [phone] 09/17/2024 1:30 PM CDT Appointment [facility] [place] [address] Adrienne Marin MD [address] [place] [phone] 09/19/2024 1:30 PM CDT Appointment [facility] [place] [address] Adrienne Marin MD [address] [place] [phone] 09/22/2024 1:30 PM CDT Appointment [facility] [place] [address] Adrienne Marin MD [address] [place] [phone] 09/24/2024 1:30 PM CDT Appointment [facility] [address] [place] [address] [address] [place] [address] Adrienne Marin MD [address] [place] [phone] 09/26/2024 1:30 PM CDT Appointment [facility] [address] [place], [place] [address] [address] Adrienne Marin MD [address] [place] [phone] 09/29/2024 1:30 PM CDT Appointment [facility] [address] [place], [place] [address] [address] Adrienne Marin MD [address] [place] [phone] 10/01/2024 1:30 PM CDT Appointment [facility] [place] [address] Adrienne Marin MD [address] [place] [phone] 10/03/2024 1:30 PM CDT Appointment [facility] [place] [address] Adrienne Marin MD [address] [place] [phone] 10/06/2024 1:30 PM CDT Appointment [facility] [address] [place] [place] [address] Adrienne Marin MD [address] [place] [phone] 10/08/2024 1:30 PM CDT Appointment [facility] [address] [place] [place] [address] Adrienne Marin MD [address] [place] [phone] 10/10/2024 1:30 PM CDT Appointment [facility] [address] [place] [address] [place] [address] Adrienne Marin MD [address] [place] [phone] 10/13/2024 1:30 PM CDT Appointment [facility] [address] [place], [place] [address] [address] Adrienne Marin MD [address] [place] [phone] 10/15/2024 1:30 PM CDT Appointment [facility] [place] [address] Adrienne Marin MD [address] [place] [phone] 10/17/2024 1:30 PM CDT Appointment [facility] [place] [address] Adrienne Marin MD [address] [place] [address] [place] [phone] 10/20/2024 1:30 PM CDT Appointment [facility] [address] [place] [place] [address] Adrienne Marin MD [address] [place] [phone] 10/22/2024 1:30 PM CDT Appointment [facility] [place] [address] Adrienne Marin MD [address] [place] [phone] 10/24/2024 1:30 PM CDT Appointment [facility] [place] [address] Adrienne Marin MD [address] [place] [phone] 10/27/2024 1:30 PM CDT Appointment [facility] [place] [address] Adrienne Marin MD [address] [place] [phone] 10/29/2024 1:30 PM CDT Appointment [facility] [place] [address] Adrienne Marin MD [address] [place] [phone] 10/31/2024 1:30 PM CDT Appointment [facility] [place] [address] Adrienne Marin MD [address] [place] [phone] 11/03/2024 1:30 PM CDT Appointment [facility] [address] [place], [place] [address] Adrienne Marin MD [address] [place] [phone] 11/05/2024 1:30 PM CDT Appointment [facility] [address] [place] [address] Adrienne Marin MD [address] [place] [phone] 11/07/2024 1:30 PM CDT Appointment [facility] [place] [address] Adrienne Marin MD [address] [place] [phone] 11/07/2024 2:40 PM CDT Office Visit [facility] Diabetes and Endocrinology - [address] [phone] Hannah Garrison MD [address] [place] [id number] 11/10/2024 1:30 PM CDT Appointment [facility] [address] [place] [address] Adrienne Marin MD [address] [place] [phone] 11/12/2024 1:30 PM CDT Appointment [facility] [place] [address] Adrienne Marin MD [address] [place] [phone] 11/14/2024 1:30 PM CDT Appointment [facility] [place] [address] Adrienne Marin MD [address] [place] [phone] 11/19/2024 1:30 PM CDT Appointment [facility] [place] [address] Adrienne Marin MD [address] [place] [phone] 11/21/2024 1:30 PM CDT Appointment [facility] [place] [address] Adrienne Marin MD [address] [place] [phone] 11/24/2024 1:30 PM CDT Appointment [facility] [place] [address] Adrienne Marin MD [address] [place] [phone] 11/26/2024 1:30 PM CDT Appointment [facility] [place] [address] Adrienne Marin MD [address] [place] [phone] Health Maintenance Due Date Last Done [...] 04/16/2020, 04/16/2020, Additional history exists PHQ-2 (Physician [place]) 06/25/2024 05/09/2024 Hemoglobin A1C 01/07/2025 07/10/2024, 06/25, [...] discharge from hospital General No Diana Todd, bright cutter - family caregiver with be involved in care transitions and discharge planning General No Nicole Cole, RN Safety Patient/family will have appropriate support at home upon discharge General No Ayleen Garcia, JOY LOADER Procedures Procedure Name Priority Date/Time Associated Diagnosis Comments POCT GLUCOSE - RUSSO DOCKED DEVICE Routine 08/03/2024 11:12 AM SEED SERVICE ADVISOR COMPREHENSIVE METABOLIC PANEL Routine 08/03/2024 6:34 AM SEED SERVICE ADVISOR CBC W/DIFF AUTOMATED Routine 08/03/2024 6:34 AM SEED SERVICE ADVISOR POCT GLUCOSE - RUSSO DOCKED DEVICE Routine 08/03/2024 6:06 AM SEED SERVICE ADVISOR POCT GLUCOSE - RUSSO DOCKED DEVICE Routine 08/02/2024 8:01 PM SEED SERVICE ADVISOR POCT GLUCOSE - RUSSO DOCKED DEVICE Routine 08/02/2024 3:13 PM SEED SERVICE ADVISOR POCT GLUCOSE - RUSSO DOCKED DEVICE Routine 08/02/2024 11:11 AM SEED SERVICE ADVISOR COMPREHENSIVE METABOLIC PANEL Routine 08/02/2024 7:06 AM SEED SERVICE ADVISOR CBC W/DIFF AUTOMATED Routine 08/02/2024 7:06 AM SEED SERVICE ADVISOR POCT GLUCOSE - RUSSO DOCKED DEVICE Routine 08/02/2024 5:55 AM SEED SERVICE ADVISOR POCT GLUCOSE - RUSSO DOCKED DEVICE Routine 08/01/2024 7:56 PM SEED SERVICE ADVISOR POCT GLUCOSE - RUSSO DOCKED DEVICE Routine 08/01/2024 3:53 PM SEED SERVICE ADVISOR POCT GLUCOSE - RUSSO DOCKED DEVICE Routine 08/01/2024 11:50 AM SEED SERVICE ADVISOR COMPREHENSIVE METABOLIC PANEL Routine 08/01/2024 7:18 AM SEED SERVICE ADVISOR CBC W/DIFF AUTOMATED Routine 08/01/2024 7:18 AM SEED SERVICE ADVISOR POCT GLUCOSE - RUSSO DOCKED DEVICE Routine 08/01/2024 5:39 AM SEED SERVICE ADVISOR POCT GLUCOSE - RUSSO DOCKED DEVICE Routine 07/31/2024 7:15 PM SEED SERVICE ADVISOR POCT GLUCOSE - RUSSO DOCKED DEVICE Routine 07/31/2024 4:37 PM SEED SERVICE ADVISOR POCT GLUCOSE - RUSSO DOCKED DEVICE Routine 07/31/2024 11:05 AM SEED SERVICE ADVISOR POCT GLUCOSE - RUSSO DOCKED DEVICE Routine 07/31/2024 10:42 AM SEED SERVICE ADVISOR COMPREHENSIVE METABOLIC PANEL Routine 07/31/2024 7:16 AM SEED SERVICE ADVISOR CBC W/DIFF AUTOMATED Routine 07/31/2024 7:16 AM SEED SERVICE ADVISOR POCT GLUCOSE - RUSSO DOCKED DEVICE Routine 07/31/2024 5:31 AM SEED SERVICE ADVISOR POCT GLUCOSE - RUSSO DOCKED DEVICE Routine 07/30/2024 8:04 PM SEED SERVICE ADVISOR POCT GLUCOSE - RUSSO DOCKED DEVICE Routine 07/30/2024 3:21 PM SEED SERVICE ADVISOR POCT GLUCOSE - RUSSO DOCKED DEVICE Routine 07/30/2024 11:14 AM SEED SERVICE ADVISOR COMPREHENSIVE METABOLIC PANEL Routine 07/30/2024 7:29 AM SEED SERVICE ADVISOR CBC W/DIFF AUTOMATED Routine 07/30/2024 7:29 AM SEED SERVICE ADVISOR POCT GLUCOSE - RUSSO DOCKED DEVICE Routine 07/30/2024 6:00 AM SEED SERVICE ADVISOR POCT GLUCOSE - RUSSO DOCKED DEVICE Routine 07/30/2024 5:31 AM SEED SERVICE ADVISOR POCT GLUCOSE - RUSSO DOCKED DEVICE Routine 07/29/2024 8:05 PM SEED SERVICE ADVISOR POCT GLUCOSE - RUSSO DOCKED DEVICE Routine 07/29/2024 2:11 PM SEED SERVICE ADVISOR XR CHEST PORTABLE Today 07/29/2024 1:2 5 PM SEED SERVICE ADVISOR POCT GLUCOSE - RUSSO DOCKED DEVICE Routine 07/29/2024 10:12 AM SEED SERVICE ADVISOR COMPREHENSIVE METABOLIC PANEL Routine 07/29/2024 7:11 AM SEED SERVICE ADVISOR CBC W/DIFF AUTOMATED Routine 07/29/2024 7:11 AM SEED SERVICE ADVISOR POCT GLUCOSE - RUSSO DOCKED DEVICE Routine 07/29/2024 5:56 AM SEED SERVICE ADVISOR POCT GLUCOSE - RUSSO DOCKED DEVICE Routine 07/28/2024 7:47 PM SEED SERVICE ADVISOR POCT GLUCOSE - RUSSO DOCKED DEVICE Routine 07/28/2024 3:04 PM SEED SERVICE ADVISOR EEG ROUTINE Routine 07/28/2024 11:37 AM SEED SERVICE ADVISOR POCT GLUCOSE - RUSSO DOCKED DEVICE Routine 07/28/2024 10:53 AM SEED SERVICE ADVISOR EEG ROUTINE Routine 07/28/2024 6:03 AM SEED SERVICE ADVISOR POCT GLUCOSE - RUSSO DOCKED DEVICE Routine 07/28/2024 5:59 AM SEED SERVICE ADVISOR COMPREHENSIVE METABOLIC PANEL Routine 07/28/2024 4:40 AM SEED SERVICE ADVISOR CBC W/DIFF AUTOMATED Routine 07/28/2024 4:40 AM SEED SERVICE ADVISOR POCT GLUCOSE - RUSSO DOCKED DEVICE Routine 07/27/2024 7:57 PM SEED SERVICE ADVISOR POCT GLUCOSE - RUSSO DOCKED DEVICE Routine 07/27/2024 2:23 PM SEED SERVICE ADVISOR POCT GLUCOSE - RUSSO DOCKED DEVICE Routine 07/27/2024 10:41 AM SEED SERVICE ADVISOR COMPREHENSIVE METABOLIC PANEL Routine 07/27/2024 8:24 AM SEED SERVICE ADVISOR CBC W/DIFF AUTOMATED Routine 07/27/2024 8:24 AM SEED SERVICE ADVISOR POCT GLUCOSE - RUSSO DOCKED DEVICE Routine 07/27/2024 6:26 AM SEED SERVICE ADVISOR POCT GLUCOSE - RUSSO DOCKED DEVICE Routine 07/27/2024 12:10 AM SEED SERVICE ADVISOR POCT GLUCOSE - RUSSO DOCKED DEVICE Routine 07/26/2024 7:44 PM SEED SERVICE ADVISOR POCT GLUCOSE - RUSSO DOCKED DEVICE Routine 07/26/2024 3:06 PM SEED SERVICE ADVISOR POCT GLUCOSE - RUSSO DOCKED DEVICE Routine 07/26/2024 11:16 AM SEED SERVICE ADVISOR TROPONIN, QUANT TIMED 07/26/2024 10:49 AM SEED SERVICE ADVISOR ECG 12-LEAD Routine 07/26/2024 9:22 AM SEED SERVICE ADVISOR TROPONIN, QUANT TIMED 07/26/2024 8:40 AM SEED SERVICE ADVISOR BLOOD GAS, ARTERIAL LAB STAT 07/26/19 8:10 AM SEED SERVICE ADVISOR XR CHEST PORTABLE STAT 07/26/2024 8:0 3 AM SEED SERVICE ADVISOR TROPONIN, QUANT TIMED 07/26/2024 6:52 AM SEED SERVICE ADVISOR PRO-BRAIN NATRIURETIC PEPTIDE Routine 07/26/2024 6:52 AM SEED SERVICE ADVISOR COMPREHENSIVE METABOLIC PANEL Routine 07/26/2024 6:52 AM SEED SERVICE ADVISOR CBC W/DIFF AUTOMATED Routine 07/26/2024 6:52 AM SEED SERVICE ADVISOR POCT GLUCOSE - RUSSO DOCKED DEVICE Routine 07/26/2024 6:48 AM SEED SERVICE ADVISOR CTA HEAD+NECK STAT 07/26/2024 5:39 AM SEED SERVICE ADVISOR CT HEAD WO CON STAT 07/26/2024 5:39 AM SEED SERVICE ADVISOR POCT GLUCOSE - RUSSO DOCKED DEVICE Routine 07/26/2024 5:08 AM SEED SERVICE ADVISOR POCT GLUCOSE - RUSSO DOCKED DEVICE Routine 07/25/2024 7:24 PM SEED SERVICE ADVISOR POCT GLUCOSE - RUSSO DOCKED DEVICE Routine 07/25/2024 3:18 PM SEED SERVICE ADVISOR XR CHEST PORTABLE Today 07/25/2024 2:0 8 PM SEED SERVICE ADVISOR POCT GLUCOSE - RUSSO DOCKED DEVICE Routine 07/25/2024 11:17 AM SEED SERVICE ADVISOR MRSA SCREENING Routine 07/25/2024 10:45 AM SEED SERVICE ADVISOR PROCALCITONIN (PCT) Routine 07/25/2024 7 :11 AM SEED SERVICE ADVISOR COMPREHENSIVE METABOLIC PANEL Routine 07/25/2024 7:11 AM SEED SERVICE ADVISOR CBC W/DIFF AUTOMATED Routine 07/25/2024 7:11 AM SEED SERVICE ADVISOR POCT GLUCOSE - RUSSO DOCKED DEVICE Routine 07/25/2024 5:54 AM SEED SERVICE ADVISOR POCT GLUCOSE - RUSSO DOCKED DEVICE Routine 07/24/2024 7:28 PM SEED SERVICE ADVISOR POCT GLUCOSE - RUSSO DOCKED DEVICE Routine 07/24/2024 2:31 PM SEED SERVICE ADVISOR POCT GLUCOSE - RUSSO DOCKED DEVICE Routine 07/24/2024 11:37 AM SEED SERVICE ADVISOR ECG 12-LEAD Routine 07/24/2024 11:28 AM SEED SERVICE ADVISOR COMPREHENSIVE METABOLIC PANEL Routine 07/24/2024 6:54 AM SEED SERVICE ADVISOR CBC W/DIFF AUTOMATED Routine 07/24/2024 6:54 AM SEED SERVICE ADVISOR POCT GLUCOSE - RUSSO DOCKED DEVICE Routine 07/24/2024 6:24 AM SEED SERVICE ADVISOR POCT GLUCOSE - RUSSO DOCKED DEVICE Routine 07/23/2024 8:09 PM SEED SERVICE ADVISOR POCT GLUCOSE - RUSSO DOCKED DEVICE Routine 07/23/2024 2:35 PM SEED SERVICE ADVISOR POCT GLUCOSE - RUSSO DOCKED DEVICE Routine 07/23/2024 10:25 AM SEED SERVICE ADVISOR MAGNESIUM Routine 07/23/2024 9:59 AM SEED SERVICE ADVISOR COMPREHENSIVE METABOLIC PANEL Routine 07/23/2024 9:59 AM SEED SERVICE ADVISOR CBC W/DIFF AUTOMATED Routine 07/23/2024 9:59 AM SEED SERVICE ADVISOR POCT GLUCOSE - RUSSO DOCKED DEVICE Routine 07/23/2024 5:45 AM SEED SERVICE ADVISOR POCT GLUCOSE - RUSSO DOCKED DEVICE Routine 07/22/2024 8:06 PM SEED SERVICE ADVISOR HC URINALYSIS AUTO W/O MICRO Routine 07/22/2024 6:00 PM SEED SERVICE ADVISOR POCT GLUCOSE - RUSSO DOCKED DEVICE Routine 07/22/2024 4:38 PM SEED SERVICE ADVISOR POCT GLUCOSE - RUSSO DOCKED DEVICE Routine 07/22/2024 10:33 AM SEED SERVICE ADVISOR AMMONIA Routine 07/22/2024 10:18 AM SEED SERVICE ADVISOR LACTIC ACID Routine 07/22/2024 10:18 AM SEED SERVICE ADVISOR CULTURE, BACTERIA, BLOOD Routine 07/22/2024 10:17 AM SEED SERVICE ADVISOR PROCALCITONIN (PCT) Routine 07/22/2024 7 :11 AM SEED SERVICE ADVISOR COMPREHENSIVE METABOLIC PANEL Routine 07/22/2024 7:11 AM SEED SERVICE ADVISOR CBC W/DIFF AUTOMATED Routine 07/22/2024 7:11 AM SEED SERVICE ADVISOR POCT GLUCOSE - RUSSO DOCKED DEVICE Routine 07/22/2024 5:46 AM SEED SERVICE ADVISOR POCT GLUCOSE - RUSSO DOCKED DEVICE Routine 07/21/2024 8:42 PM SEED SERVICE ADVISOR XA LHC POSS Today 07/21/2024 6:25 PM SEED SERVICE ADVISOR POCT ACTIVATED CLOTTING TIME - ISTAT DOCKED DEVICE Routine 07/21/2024 6:02 PM SEED SERVICE ADVISOR HEMOGLOBIN AND HEMATOCRIT STAT 07/21/2024 5:57 PM SEED SERVICE ADVISOR POCT ACTIVATED CLOTTING TIME - ISTAT DOCKED DEVICE Routine 07/21/2024 5:46 PM SEED SERVICE ADVISOR POCT GLUCOSE - RUSSO DOCKED DEVICE Routine 07/21/2024 12:03 PM SEED SERVICE ADVISOR POCT GLUCOSE - RUSSO DOCKED DEVICE Routine 07/21/2024 8:29 AM SEED SERVICE ADVISOR HEPARIN, ANTI XA, UFH STAT 07/21/2024 4:50 AM SEED SERVICE ADVISOR FERRITIN Routine 07/21/2024 4:35 AM SEED SERVICE ADVISOR IRON SAT PANEL (IRON,IBC,%SAT) Routine 07/21/2024 4:35 AM SEED SERVICE ADVISOR COMPREHENSIVE METABOLIC PANEL Routine 07/21/2024 4:35 AM SEED SERVICE ADVISOR CBC W/DIFF AUTOMATED Routine 07/21/2024 4:35 AM SEED SERVICE ADVISOR POCT GLUCOSE - RUSSO DOCKED DEVICE Routine 07/20/2024 8:31 PM SEED SERVICE ADVISOR POCT GLUCOSE - RUSSO DOCKED DEVICE Routine 07/20/2024 4:14 PM SE[address] SERVICE [address] CHEST WO CON Today 07/20/2024 3:12 PM SEED SERVICE ADVISOR POCT GLUCOSE - RUSSO DOCKED DEVICE Routine 07/20/2024 11:42 AM SEED SERVICE ADVISOR POCT GLUCOSE - RUSSO DOCKED DEVICE Routine 07/20/2024 7:19 AM SEED SERVICE ADVISOR HEPARIN, ANTI XA, UFH Routine 07/20/2024 5:42 AM SEED SERVICE ADVISOR COMPREHENSIVE METABOLIC PANEL Routine 07/20/2024 5:42 AM SEED SERVICE ADVISOR CBC W/DIFF AUTOMATED Routine 07/20/2024 5:42 AM SEED SERVICE ADVISOR POCT GLUCOSE - RUSSO DOCKED DEVICE Routine 07/20/2024 2:33 AM SEED SERVICE ADVISOR POCT GLUCOSE - RUSSO DOCKED DEVICE Routine 07/19/2024 9:23 PM SEED SERVICE ADVISOR POCT GLUCOSE - RUSSO DOCKED DEVICE Routine 07/19/2024 4:45 PM SEED SERVICE ADVISOR POCT GLUCOSE - RUSSO DOCKED DEVICE Routine 07/19/2024 11:54 AM SEED SERVICE ADVISOR POCT GLUCOSE - RUSSO DOCKED DEVICE Routine 07/19/2024 7:58 AM SEED SERVICE ADVISOR HEPARIN, ANTI XA, UFH TIMED 07/19/2024 7:29 AM SEED SERVICE ADVISOR COMPREHENSIVE METABOLIC PANEL Routine 07/19/2024 5:40 AM SEED SERVICE ADVISOR CBC W/DIFF AUTOMATED Routine 07/19/2024 5:40 AM SEED SERVICE ADVISOR PROCALCITONIN (PCT) Routine 07/19/2024 5 :40 AM SEED SERVICE ADVISOR PHOSPHORUS, INORGANIC PHOSPHATE Routine 07/19/2024 5:40 AM SEED SERVICE ADVISOR MAGNESIUM Routine 07/19/2024 5:40 AM SEED SERVICE ADVISOR POCT GLUCOSE - RUSSO DOCKED DEVICE Routine 07/19/2024 12:06 AM SEED SERVICE ADVISOR HEPARIN, ANTI XA, UFH TIMED 07/19/2024 12:05 AM SEED SERVICE ADVISOR POCT GLUCOSE - RUSSO DOCKED DEVICE Routine 07/18/2024 8:35 PM SEED SERVICE ADVISOR HEPARIN, ANTI XA, UFH TIMED 07/18/2024 5:50 PM SEED SERVICE ADVISOR POCT GLUCOSE - RUSSO DOCKED DEVICE Routine 07/18/2024 4:49 PM SEED SERVICE ADVISOR NM LUNG PERFUSION Today 07/18/2024 2:1 9 PM SEED SERVICE ADVISOR POCT GLUCOSE - RUSSO DOCKED DEVICE Routine 07/18/2024 11:58 AM SEED SERVICE ADVISOR HEPARIN, ANTI XA, UFH TIMED 07/18/2024 11:30 AM SEED SERVICE ADVISOR POCT GLUCOSE - RUSSO DOCKED DEVICE Routine 07/18/2024 8:27 AM SEED SERVICE ADVISOR POCT GLUCOSE - RUSSO DOCKED DEVICE Routine 07/18/2024 5:41 AM SEED SERVICE ADVISOR HEPARIN, ANTI XA, UFH TIMED 07/18/2024 5:00 AM SEED SERVICE ADVISOR PROCALCITONIN (PCT) Routine 07/18/2024 5 :00 AM SEED SERVICE ADVISOR PHOSPHORUS, INORGANIC PHOSPHATE Routine 07/18/2024 5:00 AM SEED SERVICE ADVISOR MAGNESIUM Routine 07/18/2024 5:00 AM SEED SERVICE ADVISOR COMPREHENSIVE METABOLIC PANEL Routine 07/18/2024 5:00 AM SEED SERVICE ADVISOR CBC W/DIFF AUTOMATED Routine 07/18/2024 5:00 AM SEED SERVICE ADVISOR POCT GLUCOSE - RUSSO DOCKED DEVICE Routine 07/18/2024 1:18 AM SEED SERVICE ADVISOR POCT GLUCOSE - RUSSO DOCKED DEVICE Routine 07/17/2024 7:55 PM SEED SERVICE ADVISOR POTASSIUM, SERUM Routine 07/17/2024 5:21 PM SEED SERVICE ADVISOR POCT GLUCOSE - RUSSO DOCKED DEVICE Routine 07/17/2024 3:33 PM SEED SERVICE ADVISOR XR CHEST PORTABLE Today 07/17/2024 12: 35 PM SEED SERVICE ADVISOR POCT GLUCOSE - RUSSO DOCKED DEVICE Routine 07/17/2024 11:42 AM SEED SERVICE ADVISOR POCT GLUCOSE - RUSSO DOCKED DEVICE Routine 07/17/2024 8:24 AM SEED SERVICE ADVISOR HEPARIN, ANTI XA, UFH TIMED 07/17/2024 3:30 AM SEED SERVICE ADVISOR TROPONIN, QUANT TIMED 07/17/2024 3:30 AM SEED SERVICE ADVISOR PROCALCITONIN (PCT) Routine 07/17/2024 3 :30 AM SEED SERVICE ADVISOR PHOSPHORUS, INORGANIC PHOSPHATE Routine 07/17/2024 3:30 AM SEED SERVICE ADVISOR MAGNESIUM Routine 07/17/2024 3:30 AM SEED SERVICE ADVISOR COMPREHENSIVE METABOLIC PANEL Routine 07/17/2024 3:30 AM SEED SERVICE ADVISOR CBC W/DIFF AUTOMATED Routine 07/17/2024 3:30 AM SEED SERVICE ADVISOR POCT GLUCOSE - RUSSO DOCKED DEVICE Routine 07/17/2024 1:19 AM SEED SERVICE ADVISOR POCT GLUCOSE - RUSSO DOCKED DEVICE Routine 07/16/2024 9:45 PM SEED SERVICE ADVISOR MRI BRAIN WWO CON Today 07/16/2024 9:0 7 PM SEED SERVICE ADVISOR POCT GLUCOSE - RUSSO DOCKED DEVICE Routine 07/16/2024 4:16 PM SEED SERVICE ADVISOR TROPONIN, QUANT Routine 07/16/2024 4:15 PM SEED SERVICE ADVISOR HEPARIN, ANTI XA, UFH TIMED 07/16/2024 4:15 PM SEED SERVICE ADVISOR POCT GLUCOSE - RUSSO DOCKED DEVICE Routine 07/16/2024 12:13 PM SEED SERVICE ADVISOR TROPONIN, QUANT Routine 07/16/2024 10:55 AM SEED SERVICE ADVISOR HEPARIN, ANTI XA, UFH TIMED 07/16/2024 10:55 AM SEED SERVICE ADVISOR POCT GLUCOSE - RUSSO DOCKED DEVICE Routine 07/16/2024 9:02 AM SEED SERVICE ADVISOR POCT GLUCOSE - RUSSO DOCKED DEVICE Routine 07/16/2024 5:47 AM SEED SERVICE ADVISOR PROCALCITONIN (PCT) Routine 07/16/2024 4 :25 AM SEED SERVICE ADVISOR PHOSPHORUS, INORGANIC PHOSPHATE Routine 07/16/2024 4:25 AM SEED SERVICE ADVISOR MAGNESIUM Routine 07/16/2024 4:25 AM SEED SERVICE ADVISOR CBC W/DIFF AUTOMATED Routine 07/16/2024 4:25 AM SEED SERVICE ADVISOR BASIC METABOLIC PANEL Routine 07/16/2024 4:25 AM SEED SERVICE ADVISOR ECG 12-LEAD Routine 07/16/2024 2:28 AM SEED SERVICE ADVISOR HC URINALYSIS AUTO W/O MICRO Routine 07/16/2024 2:03 AM SEED SERVICE ADVISOR HEPARIN, ANTI XA, UFH TIMED 07/16/2024 1:55 AM SEED SERVICE ADVISOR PROTHROMBIN TIME, VENOUS STAT 07/16/2024 1:55 AM SEED SERVICE ADVISOR PARTIAL THROMBOPLASTIN TIME,PTT STAT 07/16/2024 1:55 AM SEED SERVICE ADVISOR POCT GLUCOSE - RUSSO DOCKED DEVICE Routine 07/16/2024 1:29 AM SEED SERVICE [address] CT HEAD WO CON Today 07/15/2024 10:25 PM SEED SERVICE ADVISOR PRO-BRAIN NATRIURETIC PEPTIDE STAT 07/15/2024 9:59 PM SEED SERVICE ADVISOR TROPONIN, QUANT STAT 07/15/2024 9:59 PM SEED SERVICE ADVISOR PHOSPHORUS, INORGANIC PHOSPHATE STAT 07/15/2024 9:59 PM SEED SERVICE ADVISOR MAGNESIUM STAT 07/15/2024 9:59 PM SEED SERVICE ADVISOR CBC W/DIFF AUTOMATED STAT 07/15/2024 9:59 PM SEED SERVICE ADVISOR BASIC METABOLIC PANEL STAT 07/15/2024 9:59 PM SEED SERVICE ADVISOR POCT GLUCOSE - RUSSO DOCKED DEVICE Routine 07/15/2024 9:47 PM SEED SERVICE ADVISOR MRSA SCREENING Routine 07/15/2024 9:30 PM SEED SERVICE ADVISOR BLOOD GAS, ARTERIAL LAB Routine 07/15/19 9:20 PM SEED SERVICE ADVISOR POCT GLUCOSE - RUSSO DOCKED DEVICE Routine 07/11/2024 5:21 PM SEED SERVICE ADVISOR POCT GLUCOSE - RUSSO DOCKED DEVICE Routine 07/11/2024 12:01 PM SEED SERVICE ADVISOR BASIC METABOLIC PANEL Routine 07/11/2024 8:51 AM SEED SERVICE ADVISOR CBC W/DIFF AUTOMATED Routine 07/11/2024 8:51 AM SEED SERVICE ADVISOR PROCALCITONIN (PCT) Routine 07/11/2024 8 :51 AM SEED SERVICE ADVISOR MAGNESIUM Routine 07/11/2024 8:51 AM SEED SERVICE ADVISOR POCT GLUCOSE - RUSSO DOCKED DEVICE Routine 07/11/2024 7:56 AM SEED SERVICE ADVISOR POCT GLUCOSE - RUSSO DOCKED DEVICE Routine 07/11/2024 5:46 AM SEED SERVICE ADVISOR POCT GLUCOSE - RUSSO DOCKED DEVICE Routine 07/10/2024 9:50 PM SEED SERVICE ADVISOR POCT GLUCOSE - RUSSO DOCKED DEVICE Routine 07/10/2024 6:47 PM SEED SERVICE ADVISOR POCT GLUCOSE - RUSSO DOCKED DEVICE Routine 07/10/2024 3:32 PM SEED SERVICE ADVISOR EEG ROUTINE Routine 07/10/2024 2:04 PM SEED SERVICE ADVISOR POCT GLUCOSE - RUSSO DOCKED DEVICE Routine 07/10/2024 11:08 AM SEED SERVICE ADVISOR KEPPRA LEVEL Routine 07/10/2024 7:00 AM SEED SERVICE ADVISOR HEMOGLOBIN, GLYCOSYLATED Routine 07/10/2024 7:00 AM SEED SERVICE ADVISOR COMPREHENSIVE METABOLIC PANEL Routine 07/10/2024 7:00 AM SEED SERVICE ADVISOR CBC W/DIFF AUTOMATED Routine 07/10/2024 7:00 AM SEED SERVICE ADVISOR PROCALCITONIN (PCT) Routine 07/10/2024 7 :00 AM SEED SERVICE ADVISOR MAGNESIUM Routine 07/10/2024 7:00 AM SEED SERVICE ADVISOR POCT GLUCOSE - RUSSO DOCKED DEVICE Routine 07/10/2024 5:52 AM SEED SERVICE ADVISOR POCT GLUCOSE - RUSSO DOCKED DEVICE Routine 07/09/2024 8:06 PM SEED SERVICE ADVISOR MRA NECK WO CON Today 07/09/2024 7:13 PM SEED SERVICE ADVISOR MRA HEAD WO CON Today 07/09/2024 7:13 PM SEED SERVICE ADVISOR MRI BRAIN WO CON Today 07/09/2024 7:00 PM SEED SERVICE ADVISOR XR SHOULDER LT 3V Today 07/09/2024 4:5 3 PM SEED SERVICE ADVISOR POCT GLUCOSE - RUSSO DOCKED DEVICE Routine 07/09/2024 4:46 PM SE[address] SERVICE [address] CT HEAD WO CON STAT 07/09/2024 1:57 PM SEED SERVICE ADVISOR POCT GLUCOSE - RUSSO DOCKED DEVICE Routine 07/09/2024 12:55 PM SEED SERVICE ADVISOR US RETROPERITONEAL COMP WICHO 07/09/19 11:32 AM SEED SERVICE ADVISOR POCT GLUCOSE - RUSSO DOCKED DEVICE Routine 07/09/2024 8:47 AM SEED SERVICE ADVISOR PROCALCITONIN (PCT) WICHO 07/09/2024 8 :22 AM SEED SERVICE ADVISOR TROPONIN, QUANT Routine 07/09/2024 3:57 AM SEED SERVICE ADVISOR MAGNESIUM Routine 07/09/2024 3:57 AM SEED SERVICE ADVISOR COMPREHENSIVE METABOLIC PANEL Routine 07/09/2024 3:57 AM SEED SERVICE ADVISOR CBC W/DIFF AUTOMATED Routine 07/09/2024 3:57 AM SEED SERVICE ADVISOR ECG 12-LEAD Routine 07/08/2024 8:02 PM SEED SERVICE ADVISOR POCT GLUCOSE - RUSSO DOCKED DEVICE Routine 07/08/2024 7:51 PM SEED SERVICE ADVISOR POCT GLUCOSE - RUSSO DOCKED DEVICE Routine 07/08/2024 4:39 PM SEED SERVICE ADVISOR POCT GLUCOSE - RUSSO DOCKED DEVICE Routine 07/08/2024 11:48 AM SEED SERVICE ADVISOR POCT GLUCOSE - RUSSO DOCKED DEVICE Routine 07/08/2024 7:57 AM SEED SERVICE ADVISOR PROCALCITONIN (PCT) Routine 07/08/2024 5 :24 AM SEED SERVICE ADVISOR PRO-BRAIN NATRIURETIC PEPTIDE Routine 07/08/2024 5:24 AM SEED SERVICE ADVISOR MAGNESIUM Routine 07/08/2024 5:24 AM SEED SERVICE ADVISOR COMPREHENSIVE METABOLIC PANEL Routine 07/08/2024 5:24 AM SEED SERVICE ADVISOR CBC W/DIFF AUTOMATED Routine 07/08/2024 5:24 AM SEED SERVICE ADVISOR POCT GLUCOSE - RUSSO DOCKED DEVICE Routine 07/07/2024 7:56 PM SEED SERVICE ADVISOR POCT GLUCOSE - RUSSO DOCKED DEVICE Routine 07/07/2024 4:49 PM SEED SERVICE ADVISOR POCT GLUCOSE - RUSSO DOCKED DEVICE Routine 07/07/2024 12:15 PM SEED SERVICE ADVISOR MRI BRAIN WO CON Today 07/07/2024 11:5 4 AM SEED SERVICE ADVISOR USE ECHOCARDIOGRAM W CON Today 07/07/2024 9:52 AM SEED SERVICE ADVISOR AMMONIA Routine 07/07/2024 9:37 AM SEED SERVICE ADVISOR TROPONIN, QUANT Routine 07/07/2024 9:37 AM SEED SERVICE ADVISOR POCT GLUCOSE - RUSSO DOCKED DEVICE Routine 07/07/2024 7:57 AM SEED SERVICE ADVISOR HIV 1 ANTIGEN(S), WITH HIV-1 AND HIV-2 ANTIBODIES Routine 07/07/2024 6:36 AM SEED SERVICE ADVISOR SCL 70 Routine 07/07/2024 6:36 AM SEED SERVICE ADVISOR ANCA VASCULITIS PANEL Routine 07/07/2024 6:36 AM SEED SERVICE ADVISOR CK (CPK) Routine 07/07/2024 6:36 AM SEED SERVICE ADVISOR CYCLIC CITRULLINATED PEPTIDE (CCP)ANTIBODY(IGG) Routine 07/07/2024 6:36 AM SEED SERVICE ADVISOR ANTINUCLEAR ANTIBODY WI RFX Routine 07/07/2024 6:36 AM SEED SERVICE ADVISOR HEMOGLOBIN, GLYCOSYLATED Routine 07/07/2024 4:20 AM SEED SERVICE ADVISOR PROCALCITONIN (PCT) Routine 07/07/2024 3 :34 AM SEED SERVICE ADVISOR LIPID PANEL Routine 07/07/2024 3:34 AM SEED SERVICE ADVISOR THYROID STIM HORMONE TSH Routine 07/07/2024 3:34 AM SEED SERVICE ADVISOR MAGNESIUM Routine 07/07/2024 3:34 AM SEED SERVICE ADVISOR COMPREHENSIVE METABOLIC PANEL Routine 07/07/2024 3:34 AM SEED SERVICE ADVISOR PROTHROMBIN TIME, VENOUS Routine 07/07/2024 3:34 AM SEED SERVICE ADVISOR CBC W/DIFF AUTOMATED Routine 07/07/2024 3:34 AM SEED SERVICE ADVISOR RESPIRATORY PCR PANEL 2 Routine 07/07/19 1:16 AM SEED SERVICE ADVISOR CULTURE, BACTERIA, BLOOD Routine 07/07/2024 12:30 AM SEED SERVICE ADVISOR FOLIC ACID SERUM Routine 07/07/2024 12:3 0 AM SEED SERVICE ADVISOR VITAMIN B-12 Routine 07/07/2024 12:30 AM SEED SERVICE ADVISOR TRANSFERRIN Routine 07/07/2024 12:30 AM SEED SERVICE ADVISOR FERRITIN Routine 07/07/2024 12:30 AM SEED SERVICE ADVISOR IRON SAT PANEL (IRON,IBC,%SAT) Routine 07/07/2024 12:30 AM SEED SERVICE ADVISOR LACTIC ACID Routine 07/07/2024 12:30 AM SEED SERVICE ADVISOR TROPONIN, QUANT Routine 07/07/2024 12:30 AM SEED SERVICE ADVISOR URINE BACTERIA CULTURE Routine 11:25 PM SEED SERVICE ADVISOR DRUG SCREEN RAPID Routine 07/06/2024 11: 25 PM SEED SERVICE ADVISOR HC URINALYSIS AUTO W/O MICRO Routine 07/06/2024 11:25 PM SEED SERVICE ADVISOR POCT GLUCOSE - RUSSO DOCKED DEVICE Routine 07/06/2024 11:16 PM SEED SERVICE ADVISOR MRSA SCREENING Routine 07/06/2024 11:08 PM SEED SERVICE ADVISOR COLONOSCOPY GENERIC (SCAN ORDER) Routine 05/31/2018 from Last 3 Months or Most Recently Relevant to Health Maintenance Results * (ABNORMAL) POCT glucose (08/03/2024 11:12 AM SEED SERVICE ADVISOR) Only the most recent of107 resultswithin the time period is included. GLUCOSE POC 233(H) 70 - 99 mg/dL 08/03/2024 11:27 AM SEED SERVICE ADVISOR [facility] 08/03/2024 11:1 2 AM SEED SERVICE ADVISOR us Carl Holguin MD POCT ORDERABLES - DEVICE Final Result [facility] [address] [place] [address], * (ABNORMAL) COMPREHENSIVE METABOLIC PANEL (08/03/2024 6:34 AM SEED SERVICE ADVISOR) Only the most recent of22 resultswithin the time period is included. GLUCOSE 132(H) 70 - 99 MG/DL 08/03/2024 8:13 AM SEED SERVICE ADVISOR [facility] BUN 24(H) 7 - 18 MG/DL 08/03/2024 8:13 AM SEED SERVICE ADVISOR [facility] CREATININE S/P/B 1.67(H) 0.7 - 1.3 MG/DL 08/03/2024 8:13 AM SEED SERVICE ADVISOR [facility] SODIUM S/P/B 141 136 - 145 MMOL/L 08/03/2024 8:13 AM SEED SERVICE ADVISOR [facility] POTASSIUM S/P/B 3.7 3.5 - 5.1 MMOL/L 08/03/2024 8:13 AM [facility] CHLORIDE S/P/B 110 97 - 115 MMOL/L 08/03/2024 8:13 AM [facility] CO2 24.0 21 - 32 MMOL/L 08/03/2024 8:13 AM [facility] CALCIUM S/P/B 9.0 8.5 - 10.1 MG/DL 08/03/2024 8:13 AM [facility] BILIRUBIN TOTAL S/P/B 0.3 0.2 - 1.2 MG/DL 08/03/2024 8:13 AM [facility] Comment: THIS ASSAY IS NOT RECOMMENDED FOR PATIENTS UNDERGOING TREATMENT WITH ELTROMBOPAG DUE TO THE POTENTIAL FOR FALSELY ELEVATED RESULTS. TOTAL PROTEIN S/P/B 6.0(L) 6.4 - 8.2 G/DL 08/03/2024 8:13 AM [facility] ALBUMIN S/P/B 2.5(L) 3.4 - 5.0 G/DL 08/03/2024 8:13 AM [facility] AST 16 15 - 37 U/L 08/03/2024 8:13 AM [facility] ALT 15(L) 16 - 60 U/L 08/03/2024 8:13 AM [facility] ALKALINE PHOSPHATASE S/P/B 79 50 - 136 U/L 08/03/2024 8:13 AM [facility] ANION GAP 7.0 2 - 10 MMOL/L 08/03/2024 8:13 AM [facility] BUN CREATININE RATIO 14.4 6 - 26 08/03/2024 8:13 AM [facility] A/G RATIO 0.7(L) 1.0 - 2.0 RATIO 08/03/2024 8:13 AM [facility] GFR ESTIMATE 43(L) >90 ML/MIN/1.7 3 M2 08/03/2024 8:13 AM [facility] Comment: NOTE: eGFR is not calculated for patients <18 years of age or gender unknown. This is an estimated GFR calculation using the new CKD EPI creatinine equation without race and so does not require a correction factor for race. This estimated GFR should not be used for calculating drug doses. 08/03/2024 6:34 AM SEED SERVICE ADVISOR Sabrina Gonzales MD LABORATORY Final Res ult [facility] [address] [place] [address], [place] [phone] * (ABNORMAL) CBC W/DIFF AUTOMATED (08/03/2024 6:34 AM SEED SERVICE ADVISOR) Only the most recent of25 resultswithin the time period is included. WBC 5.53 4.5 - 11.0 x10'3/uL 08/03/2024 7:44 AM [facility] RBC 2.59(L) 4.70 - 6.10 x10'6/uL 08/03/2024 7:44 AM [facility] HGB 7.4(L) 14.0 - 18.0 G/DL 08/03/2024 7:44 AM [facility] HCT 23.5(L) 43.0 - 54.0 % 08/03/2024 7:44 AM [facility] MCV 90.7 80.0 - 94.0 FL 08/03/2024 7:44 AM [facility] MCH 28.6 27.0 - 31.0 PG 08/03/2024 7:44 AM [facility] MCHC 31.5(L) 32.0 - 36.0 G/DL 08/03/2024 7:44 AM [facility] RDW 13.8 11.5 - 14.5 % 08/03/2024 7:44 AM [facility] PLT 165 130 - 400 x10'3/uL 08/03/2024 7:44 AM [facility] MPV 13.0(H) 9.3 - 12.2 FL 08/03/2024 7:44 AM [facility] DIFFERENTIAL TYPE MANUAL DIFFERENTIAL 08/03/2024 8:16 AM [facility] SEG NEUTROPHILS 70 % 8:16 AM [facility] LYMPHOCYTES 10 % 08/03/2024 8:16 AM [facility] MONOCYTES 10 % 08/03/2024 8:16 AM [facility] EOSINOPHILS 9 % 08/03/2024 8:16 AM [facility] BASOPHILS 1 % 08/03/2024 8:16 AM [facility] ABS. NEUTROPHILS 3.87 1.80 - 7.70 x10'3/uL 08/03/2024 8:16 AM [facility] ABS. LYMPHOCYTES 0.55(L) 1.00 - 4.80 x10'3/uL 08/03/2024 8:16 AM [facility] ABS. MONOCYTES 0.55 0.30 - 0.82 x10'3/uL 08/03/2024 8:16 AM [facility] ABS. EOSINOPHILS 0.50 0.04 - 0.54 x10'3/uL 08/03/2024 8:16 AM [facility] ABS. BASOPHILS 0.06 0.01 - 0.08 x10'3/uL 08/03/2024 8:16 AM [facility] RBC MORPHOLOGY RBC MORPHOLOGY APPEARS NORMAL. SLIDE REVIEWED. 08/03/2024 8:16 AM [facility] PLT EST. ADEQUATE 08/03/2024 8:16 AM SEED SERVICE ADVISOR [facility] 08/03/2024 6:34 AM SEED SERVICE ADVISOR Sabrina Gonzales MD LABORATORY Final Res ult [facility] [address] [place] [address], * XR CHEST PORTABLE (07/29/2024 1:25 PM SEED SERVICE ADVISOR) Only the most recent of4 resultswithin the time period is included. Anatomical Region Laterality Modality Chest Radiographic Rozina ging 07/29/2024 1:38 PM SEED SERVICE ADVISOR Impressions 07/29/2024 1:38 PM SEED SERVICE ADVISOR IMPRESSION: Stable chest, no acute findings. Ordered By: NIKKI WOLFE Interpreted By: Brooks Gresham MD, 07/29/2024 1:38 PM Narrative 07/29/2024 1:38 PM SEED SERVICE ADVISOR [place] [id number] SINGLE VIEW OF THE CHEST Clinical history: Shortness of breath Comparison: July 26, 2024 A single view of the chest demonstrates borderline cardiomegaly which is stable. The pulmonary vessels are normally distributed. The Lungs are clear. No consolidations or effusions are seen. Procedure Note Brooks Gresham MD - 07/29/[address] [address] SINGLE VIEW OF THE CHEST Clinical history: [...] Final Result * EEG (07/28/2024 11:37 AM SEED SERVICE ADVISOR) Narrative [facility] - 07/28/2024 11:37 AM SEED SERVICE ADVISOR Tho Lilly MD 07/28/2024 11:37 AM Date [...] ORDERABLES Final R esult Performing Organization Address City/[facility]/ZIP Co de Phone Number [facility] [address] [place] [address], [place] [phone] * (ABNORMAL) TROPONIN, QUANT (07/26/2024 10:49 AM SEED SERVICE ADVISOR) Only the most recent of10 resultswithin the time period is included. TROPONIN I HIGH SENSITIVITY 95(H) <79 ng/L 07/26/2024 11:29 AM SEED SERVICE ADVISOR [facility] Comment: HIGH DOSES OF BIOTIN, TROPONIN-SPECIFIC AUTOANTIBODIES, AND ANTIBODY THERAPY CONTAINING HAMA MAY INTERFERE WITH THIS TEST RESULT. CORRELATION TO CLINICAL HISTORY AND PRESENTATION RECOMMENDED. 07/26/2024 10:4 9 AM SEED SERVICE ADVISOR Ester Whitten MD LABORATORY Final Re sult Performing Organization Address City/[facility]/ZIP Co de Phone Number [facility] [address] [place] [phone], * ECG 12 lead (07/26/2024 9:22 AM SEED SERVICE ADVISOR) Only the most recent of4 resultswithin the time period is included. 07/26/2024 9:22 AM SEED SERVICE ADVISOR Narrative [facility] RAD - 07/26/2024 12:02 PM SEED SERVICE ADVISOR [address] Test Date: 2024-07-26 Pat Name: KEYANA POOL Department: 40 Room: [id number] Gender: Male First Assistant Manager: : 1950 Requested By: ESTER WHITTEN Order Number: [id number] Tiburcio MD: Johnny Garcia Measurements Intervals [place] Rate: 84 P: 42 GA: 136 QRS: [...] longer present Possible ischemia no longer present SERVICE ADVISOR Procedure Note Johnny Garcia MD - 07/26/[address] [place] [address] Test Date: 2024-07-26 Pat Name: KEYANA POOL Department: 40 Room: [facility] Gender: Male First Assistant Manager: : 1950 Requested By: ESTER WHITTEN Order Number: [id number] Reading MD: Johnny Garcia Measurements Intervals [place] Rate: 84 P: 42 GA: 136 QRS: [...] longer present Possible ischemia no longer present SERVICE ADVISOR us Ester Whitten MD ECG ORDERABLES Final Re sult [facility] RAD * (ABNORMAL) ARTERIAL BLOOD GAS (07/26/2024 8:10 AM SEED SERVICE ADVISOR) Only the most recent of2 resultswithin the time period is included. PH ARTERIAL 7.42 7.35 - 7.45 07/26/2024 8:32 AM [facility] PCO2 31.0(L) 35.0 - 45.0 MMHG 07/26/2024 8:32 AM [facility] PO2 82.0(L) 83.0 - 108.0 MMHG 07/26/2024 8:32 AM [facility] TOTAL CO2 ARTERIAL 21.1 19.0 - 24.0 MMOL/L 07/26/2024 8:32 AM [facility] BASE DEFICIT 3.4(H) 0.0 - 3.0 MMOL/L 07/26/2024 8:32 AM [facility] O2 SATURATION 96 94.0 - 98.0 % 07/26/2024 8:32 AM [facility] BICARB ARTERIAL 20.1(L) 21.0 - 28.0 MMOL/L 07/26/2024 8:32 AM [facility] TRACY TEST TRACY TEST PERFORMED 07/26/2024 8:29 AM [facility] O2 ADMIN ARTERIAL 40 07/26/2024 8:29 AM [facility] DRAW SITE ARTERIAL LT RADIAL 07/26/2024 8:29 AM [facility] 07/26/2024 8:10 AM [facility] Ester Whitten MD LABORATORY Final Re sult [facility] [address] [place] [address], * (ABNORMAL) PRO-BRAIN NATRIURETIC PEPTIDE (07/26/2024 6:52 AM [facility]) Only the most recent of3 resultswithin the time period is included. PRO-B TYPE NATRIURETIC PEPTIDE 4,026(H) <125 PG/ML 07/26/2024 7:47 AM SEED SERVICE ADVISOR [facility] Comment: CUT POINTS ESTABLISHED BY INTERNATIONAL [...] 72% FOR ACUTE CHF. 07/26/2024 6:52 AM SEED SERVICE ADVISOR Ester Whitten MD LABORATORY Final Re sult [facility] [address] [place] [address], * CTA HEAD+NECK (07/26/2024 5:39 AM SEED SERVICE ADVISOR) Anatomical Region Laterality Modality Head, Neck Computed Tomogra phy 07/26/2024 5:52 AM SEED SERVICE ADVISOR Impressions 07/26/2024 5:58 AM SEED SERVICE ADVISOR IMPRESSION: 1. Moderate stenosis in the cavernous [...] or occlusion of major intracranial arteries near [place] otherwise. 5. 50% stenosis of the proximal left internal carotid artery. 6. Less than 10% stenosis at the origin of the right internal carotid artery. 7. Bilateral pleural effusions partially visualized. 8. Diffuse interstitial thickening in the visualized lungs. Referred By: XAVIER SCHULTE Interpreted By: Scottie Trinidad MD, 07/26/2024 5:52 AM Narrative 07/26/2024 5:58 AM SEED SERVICE ADVISOR [facility] [address] [place], [place] [address] Examination: CTA of the head and neck [...] Procedure Note Scottie Trinidad MD - 07/26/2024 [facility] [address] [place], [place] [address] Examination: CTA of the head and neck [...] stenosis or occlusion of major intracranial arteriesnear [place] of [place] otherwise. 5. 50% stenosis of [...] CT HEAD WO CON (07/26/2024 5:39 AM SEED SERVICE ADVISOR) Only the most recent of3 resultswithin the time period is included. Anatomical Region Laterality Modality Head Computed Tomogra phy 07/26/2024 5:49 AM SEED SERVICE ADVISOR Impressions 07/26/2024 5:51 AM SEED SERVICE ADVISOR IMPRESSION: ===== 1. No acute intracranial abnormalities. 2. Atrophy and small vessel ischemic disease. Superimposed acute infarct not excluded. Referred By: XAIVER SCHULTE Interpreted By: Scottie Trinidad MD, 07/26/2024 5:49 AM Narrative 07/26/2024 5:51 AM SEED SERVICE ADVISOR [address] [address] EXAMINATION: CT of the head EXAM DATE/TIME: [...] Procedure Note Scottie Trinidad MD - 07/26/[address] [address] EXAMINATION: CT of the head EXAM DATE/TIME: [...] Result * MRSA SCREENING (07/25/2024 10:45 AM SEED SERVICE ADVISOR) Only the most recent of3 resultswithin the time period is included. SPEC DESCRIPTION NASAL 07/25/2024 10:43 AM SEED SERVICE ADVISOR [facility] SPECIAL REQUESTS NO SPECIAL REQUEST 07/25/2024 10:43 AM SEED SERVICE ADVISOR [facility] CULTURE RESULT NO METHICILLIN RESISTANT STAPHYLOCOCCUS AUREUS ISOLATED 07/26/2024 1:03 PM SEED SERVICE ADVISOR [facility] SPECIMEN FROM INTERNAL NOSE / Unknown 07/25/2024 10:45 AM SEED SERVICE ADVISOR 07/25/2024 10:52 AM SEED SERVICE ADVISOR Sabrina Gonzales MD MICROBIOLOGY - GENERAL OR DERABLES Final Result [facility] [address] [place] [address], * PROCALCITONIN (PCT) (07/25/2024 7:11 AM SEED SERVICE ADVISOR) Only the most recent of11 resultswithin the time period is included. Procalcitonin 0.05 0.00 - 0.49 NG/ML 07/25/2024 9:22 AM SEED SERVICE ADVISOR [facility] 07/25/2024 7:11 AM SEED SERVICE ADVISOR us Sabrina Gonzales MD LABORATORY Final Res ult [facility] [address] [place] [address], [place] [phone] * MAGNESIUM (07/23/2024 9:59 AM SEED SERVICE ADVISOR) Only the most recent of11 resultswithin the time period is included. MAGNESIUM 2.1 1.8 - 2.4 MG/DL 07/23/2024 12:25 PM SEED SERVICE ADVISOR [facility] 07/23/2024 9:59 AM SEED SERVICE ADVISOR Sabrina Gonzales MD LABORATORY Final Res ult Performing Organization Address City/[facility]/ZIP Co de Phone Number [facility] [address] [place] [address], [place] [phone] * (ABNORMAL) URINALYSIS (07/22/2024 6:00 PM SEED SERVICE ADVISOR) Only the most recent of3 resultswithin the time period is included. SPECIMEN TYPE URINE CLEAN CATCH 07/22/2024 5:59 PM SEED SERVICE ADVISOR [facility] COLOR (U) YELLOW 07/22/2024 6:15 PM SEED SERVICE ADVISOR [facility] TRANSPARENCY CLEAR 07/22/2024 6:15 PM SEED SERVICE ADVISOR [facility] SPECIFIC GRAVITY (U) 1.026 1.001 - 1.030 07/22/2024 6:15 PM SEED SERVICE ADVISOR [facility] U PH 5.0 5.0 - 9.0 07/22/2024 6:15 PM [facility] LEUKOCYTES (U) 25(A) NEGATIVE 07/22/2024 6:15 PM SEED SERVICE ADVISOR [facility] NITRITES NEGATIVE NEGATIVE 07/22/2024 6:15 PM SEED SERVICE ADVISOR [facility] PROTEIN RANDOM (U) NEGATIVE <30 MG/DL 07/22/2024 6:15 PM SEED SERVICE ADVISOR [facility] GLUCOSE (U) NORMAL NORMAL MG/DL 07/22/2024 6:15 PM SEED SERVICE ADVISOR [facility] KETONES MG/DL (U) NEGATIVE NEGATIVE MG/DL 07/22/2024 6:15 PM SEED SERVICE ADVISOR [facility] UROBILINOGEN NORMAL NORMAL MG/DL 07/22/2024 6:15 PM SEED SERVICE ADVISOR [facility] BILIRUBIN (U) NEGATIVE NEGATIVE MG/DL 07/22/2024 6:15 PM SEED SERVICE ADVISOR [facility] BLOOD (U) NEGATIVE NEGATIVE 07/22/2024 6:15 PM [facility] MUCUS RARE /LPF 07/22/2024 6:15 PM [facility] WBC/HPF 9(H) <6 /HPF 07/22/2024 6:15 PM [facility] RBC/HPF 4 <6 /HPF 07/22/2024 6:15 PM SEED SERVICE ADVISOR [facility] SQUAMOUS EPITHELIALS RARE /HPF 07/22/2024 6:15 PM [facility] URINE SPECIMEN OBTAINED BY CLEAN CATCH PROCEDURE / Unknown 07/22/2024 6:00 PM [facility] Sabrina Gonzales MD URINE ORDERABLES Final Re sult [facility] [address] [place] [address], * LACTIC ACID - SINGLE (07/22/2024 10:18 AM SEED SERVICE ADVISOR) Only the most recent of2 resultswithin the time period is included. LACTIC ACID VENOUS 0.8 0.4 - 2.0 MMOL/L 07/22/2024 11:00 AM SEED SERVICE ADVISOR [facility] 07/22/2024 10:1 8 AM SEED SERVICE ADVISOR us Sabrina Gonzales MD LABORATORY Final Res ult [facility] [address] [place] [address], * AMMONIA (07/22/2024 10:18 AM SEED SERVICE ADVISOR) Only the most recent of2 resultswithin the time period is included. AMMONIA 26 11 - 32 UMOL/L 07/22/2024 10:49 AM SEED SERVICE ADVISOR [facility] 07/22/2024 10:1 8 AM SEED SERVICE ADVISOR Sabrina Gonzales MD LABORATORY Final Res ult [facility] [address] [place] [address], * CULTURE, BACTERIA, BLOOD (07/22/2024 10:17 AM SEED SERVICE ADVISOR) Only the most recent of2 resultswithin the time period is included. SPEC DESCRIPTION BLOOD 07/22/2024 9:57 AM SEED SERVICE ADVISOR [facility] SPECIAL REQUESTS NO SPECIAL REQUEST 07/22/2024 9:57 AM SEED SERVICE ADVISOR [facility] CULTURE RESULT NO GROWTH 5 DAYS 07/27/2024 10:45 AM SEED SERVICE ADVISOR [facility] BLOOD SPECIMEN OBTAINED FOR BLOOD CULTURE / Unknown 07/22/2024 10:17 AM SEED SERVICE ADVISOR 07/22/2024 10:18 AM SEED SERVICE ADVISOR us Sabrina Gonzales MD MICROBIOLOGY - GENERAL OR DERABLES Final Result [facility] [address] [place] [address], * XA LHC POSS (07/21/2024 6:25 PM SEED SERVICE ADVISOR) Anatomical Region Laterality Modality Cardiac Public [employer] Facilities Rental Manager 07/21/2024 6:00 PM SEED SERVICE ADVISOR Roc Fulton MD MANAGER OF DRILLING Final Result * (ABNORMAL) POCT ACTIVATED CLOTTING TIME - ISTAT DOCKED DEVICE (07/21/2024 6:02 PM SEED SERVICE ADVISOR) Only the most recent of2 resultswithin the time period is included. ACTIVATED CLOTTING TIME (ACT) 263(H) 74 - 125 SEC 07/21/2024 6:14 PM SEED SERVICE ADVISOR [facility] VENDING STAND SUPERVISOR CODE [id number] 07/21/2024 6:14 PM SEED SERVICE ADVISOR [facility] 07/21/2024 6:02 PM SEED SERVICE ADVISOR Jesus Bocanegra MD POCT ORDERABLES - DEVIC E Final Result [facility] [address] [place] [address], * (ABNORMAL) HEMOGLOBIN AND HEMATOCRIT (07/21/2024 5:57 PM SEED SERVICE ADVISOR) HGB 7.6(L) 14.0 - 18.0 G/DL 07/21/2024 6:23 PM SEED SERVICE ADVISOR [facility] HCT 23.7(L) 43.0 - 54.0 % 07/21/2024 6:23 PM SEED SERVICE ADVISOR [facility] 07/21/2024 5:57 PM SEED SERVICE ADVISOR Jasmeet Leavitt MD LABORATORY Final Result [facility] [address] [place] [address], [place] [phone] * HEPARIN, ANTI XA, UFH (07/21/2024 4:50 AM SEED SERVICE ADVISOR) Only the most recent of11 resultswithin the time period is included. HEPARIN ANTI XA UFH 0.33 0.30 - 0.70 IU/ML 07/21/2024 5:32 AM SEED SERVICE ADVISOR [facility] Comment: UFH Therapeutic Anti Xa Ranges: Medical Therapeutic Range: 0.30 - 0.70 IU/mL Cardiac Therapeutic Range: 0.30 - 0.50 IU/mL Neuro Therapeutic Range: 0.20 - 0.40 IU/mL 07/21/2024 4:50 AM SEED SERVICE ADVISOR Sabrina Lopez DO LABORATORY Final Res ult Performing Organization Address City/[facility]/ZIP Co de Phone Number [facility] [address] [place] [address], [place] [phone] * (ABNORMAL) IRON SAT PANEL (IRON,IBC,%SAT) (07/21/2024 4:35 AM SEED SERVICE ADVISOR) Only the most recent of2 resultswithin the time period is included. IRON 40(L) 65.0 - 175.0 MCG/DL 07/21/2024 8:50 PM SEED SERVICE ADVISOR [facility] IRON BINDING CAPACITY 172(L) 250 - 450 MCG/DL 07/21/2024 8:50 PM SEED SERVICE ADVISOR [facility] IRON SATURATION 23 20 - 55 % 8:50 PM SEED SERVICE ADVISOR [facility] 07/21/2024 4:35 AM SEED SERVICE ADVISOR Jasmeet Leavitt MD LABORATORY Final Result [facility] [address] [place] [address], [place] [phone] * FERRITIN (07/21/2024 4:35 AM SEED SERVICE ADVISOR) Only the most recent of2 resultswithin the time period is included. FERRITIN 280.2 8.0 - 388.0 NG/ML 07/21/2024 8:54 PM SEED SERVICE ADVISOR [facility] 07/21/2024 4:35 AM SEED SERVICE ADVISOR Jasmeet Leavitt MD LABORATORY Final Result Performing Organization Address City/[facility] Co de Phone Number [facility] [address] [place] [address], [place] [phone] * CT CHEST WO CON (07/20/2024 3:12 PM SEED SERVICE ADVISOR) Anatomical Region Laterality Modality Chest Computed Tomogra phy 07/20/2024 11:5 6 PM SEED SERVICE ADVISOR Impressions 07/21/2024 12:01 AM SEED SERVICE ADVISOR IMPRESSION: 1. Scattered patchy groundglass opacities throughout both lungs, suggesting multifocal pneumonia. 2. Coronary artery calcifications. 3. Prominence of the main pulmonary artery suggesting elevated pulmonary arterial pressures. Referred By: XAVIER SCHULTE Interpreted By: Michoacano James DO, 07/20/2024 11:56 PM Narrative 07/21/2024 12:01 AM SEED SERVICE ADVISOR [facility] [address] [place], [place] [address] EXAMINATION: CT CHEST WO CON EXAM DATE: [...] Procedure Note Michoacano James DO - 07/21/2024 [facility] [address] [place], [place] [address] EXAMINATION: CT CHEST WO CON EXAM DATE: [...] * PHOSPHORUS, INORGANIC PHOSPHATE (07/19/2024 5:40 AM SEED SERVICE ADVISOR) Only the most recent of5 resultswithin the time period is included. PHOSPHORUS 3.5 2.5 - 4.9 MG/DL 07/19/2024 6:17 AM SEED SERVICE ADVISOR [facility] 07/19/2024 5:40 AM SEED SERVICE ADVISOR Hansel Patel MD LABORATORY Final Result [facility] [address] [place] [address], [place] [phone] * NM LUNG PERFUSION (07/18/2024 2:19 PM SEED SERVICE ADVISOR) Anatomical Region Laterality Modality Chest Nuclear Medicine 07/18/2024 3:01 PM SEED SERVICE ADVISOR Impressions 07/18/2024 3:05 PM SEED SERVICE ADVISOR IMPRESSION: Perfusion only study reveals near uniform distribution of activity bilaterally with no segmental defects. Referred By: XAVIER SCHULTE Interpreted By: Eric Ohara MD, 07/18/2024 3:01 PM Narrative 07/18/2024 3:05 PM SEED SERVICE ADVISOR [address] [address] Perfusion Scintigraphy Exam date: 07/18/2024. Indications: 73-year-old [...] Procedure Note Eric Ohara MD - 07/18/[address] [address] Perfusion Scintigraphy Exam date: 07/18/2024. Indications: 73-year-old [...] * (ABNORMAL) POTASSIUM, SERUM (07/17/2024 5:21 PM SEED SERVICE ADVISOR) POTASSIUM S/P/B 3.2(L) 3.5 - 5.1 MMOL/L 07/17/2024 5:50 PM SEED SERVICE ADVISOR [facility] 07/17/2024 5:21 PM SEED SERVICE ADVISOR Hansel Patel MD LABORATORY Final Result [facility] [address] [place] [address], [place] [phone] * MRI BRAIN WWO CON (07/16/2024 9:07 PM SEED SERVICE ADVISOR) Anatomical Region Laterality Modality Head Magnetic Resonan ce 07/16/2024 9:20 PM SEED SERVICE ADVISOR Impressions 07/16/2024 9:30 PM SEED SERVICE ADVISOR IMPRESSION: 1. No acute infarct or intracranial mass lesion. 2. Other chronic or nonurgent findings as described above. Referred By: XAVIER SCHULTE Interpreted By: Duane Pina MD, 07/16/2024 9:20 PM Narrative 07/16/2024 9:30 PM SEED SERVICE ADVISOR [place] [address] INDICATION: Stroke EXAMINATION: MRI brain with and [...] Procedure Note Duane Pina MD - 07/16/2024 [place] [address] INDICATION: Stroke EXAMINATION: MRI brain with and [...] (ABNORMAL) BASIC METABOLIC PANEL (07/16/2024 4:25 AM SEED SERVICE ADVISOR) Only the most recent of3 resultswithin the time period is included. GLUCOSE 283(H) 70 - 99 MG/DL 07/16/2024 5:20 AM [facility] BUN 59(H) 7 - 18 MG/DL 07/16/2024 5:20 AM [facility] CREATININE S/P/B 2.63(H) 0.7 - 1.3 MG/DL 07/16/2024 5:20 AM [facility] SODIUM S/P/B 144 136 - 145 MMOL/L 07/16/2024 5:20 AM [facility] POTASSIUM S/P/B 3.3(L) 3.5 - 5.1 MMOL/L 07/16/2024 5:20 AM [facility] CHLORIDE S/P/B 113 97 - 115 MMOL/L 07/16/2024 5:20 AM [facility] CO2 23.9 21 - 32 MMOL/L 07/16/2024 5:20 AM [facility] CALCIUM S/P/B 9.1 8.5 - 10.1 MG/DL 07/16/2024 5:20 AM SEED SERVICE ADVISOR [facility] ANION GAP 7.1 2 - 10 MMOL/L 07/16/2024 5:20 AM [facility] BUN CREATININE RATIO 22.4 6 - 26 07/16/2024 5:20 AM [facility] GFR ESTIMATE 25(L) >90 ML/MIN/1.7 3 M2 07/16/2024 5:20 AM [facility] Comment: NOTE: eGFR is not calculated for patients <18 years of age or gender unknown. This is an estimated GFR calculation using the new CKD EPI creatinine equation without race and so does not require a correction factor for race. This estimated GFR should not be used for calculating drug doses. 07/16/2024 4:25 AM SEED SERVICE ADVISOR Nicole Brown MD LABORATORY Final Result [facility] [address] [place] [address], [place] [phone] * PARTIAL THROMBOPLASTIN TIME,PTT (07/16/2024 1:55 AM SEED SERVICE ADVISOR) PTT 25.4 25.1 - 36.5 SEC 07/16/2024 2:44 AM SEED SERVICE ADVISOR [facility] 07/16/2024 1:55 AM SEED SERVICE ADVISOR Ester Whitten MD LABORATORY Final Re sult [facility] [address] [place] [address], [place] [phone] * (ABNORMAL) PROTIME/INR, VENOUS (07/16/2024 1:55 AM SEED SERVICE ADVISOR) Only the most recent of2 resultswithin the time period is included. PROTIME 13.4(H) 10.2 - 12.9 SEC 07/16/2024 2:44 AM SEED SERVICE ADVISOR [facility] INR 1.2 07/16/2024 2:44 AM SEED SERVICE ADVISOR [facility] Comment: Recommended INR Therapeutic Goals: 2.0-3.0 Routine Therapy 2.5-3.5 Mechanical Prosthetic Valves (High Risk) 07/16/2024 1:55 AM SEED SERVICE ADVISOR Ester Whitten MD LABORATORY Final Re sult [facility] [address] [place] [address], * EEG (07/10/2024 2:04 PM SEED SERVICE ADVISOR) Narrative [facility] - 07/10/2024 2:04 PM SEED SERVICE ADVISOR Tho Lilly MD 07/10/2024 2:05 PM Date [...] Epileptologist, Neurohospitalist Jennifer Arroyo MD NEUROLOGY ORDERABLES [facility] al Result [facility] [address] [place] [address], [place] [phone] * (ABNORMAL) HEMOGLOBIN, GLYCOSYLATED (07/10/2024 7:00 AM SEED SERVICE ADVISOR) Only the most recent of2 resultswithin the time period is included. HGB A1C 8.4(H) <5.7 % 07/10/2024 10:01 AM SEED SERVICE ADVISOR [facility] Comment: ADA GUIDELINES 2010 5.7 TO 6.4% INCREASED RISK OF DIABETES > OR = 6.5% CONSISTENT WITH DIABETES ESTIMATED AVG GLUCOSE 194 mg/dL 07/10/2024 10:01 AM SEED SERVICE ADVISOR [facility] 07/10/2024 7:00 AM SEED SERVICE ADVISOR Padmaja Leigh MD LABORATORY Final Result [facility] [address] [place] [address], [place] [phone] * (ABNORMAL) KEPPRA LEVEL (07/10/2024 7:00 AM SEED SERVICE ADVISOR) KEPPRA 49.5(H) 6.0 - 46.0 mcg/mL 07/13/2024 8:05 PM SEED SERVICE ADVISOR [facility] Comment: Brivaracetam (Briviact(R), Rikelta(R)) exhibits significant cross-reactivity in the Levetiracetam (Keppra(R), Spritam(R)) immunoassay. If Brivaracetam has been prescribed, order test code [id number] Levetiracetam by LCMSMS. Test Performed by [employer], [facility], [address] [place] [address] Zaki Beard M.D., Ph.D., Director of Laboratories , [facility] [id number] 07/10/2024 7:00 AM SEED SERVICE ADVISOR Padmaja Leigh MD LABORATORY Final Result Performing Organization Address City/[facility]/ZIP Co de Phone Number [employer] [address] , * MRA NECK WO CON (07/09/2024 7:13 PM SEED SERVICE ADVISOR) Anatomical Region Laterality Modality Neck Magnetic Resonan ce 07/09/2024 7:53 PM SEED SERVICE ADVISOR Impressions 07/09/2024 8:00 PM SEED SERVICE ADVISOR IMPRESSION: 1. No definite large vessel intracranial arterial occlusion identified. 2. No hemodynamically significant stenosis in the visualized carotid and vertebral arteries in the neck. 3. MRA assessment somewhat degraded by motion and artifact. Referred By: VERÓNICA HUNTER Interpreted By: Fer August MD, 07/09/2024 7:53 PM Narrative 07/09/2024 8:00 PM SEED SERVICE ADVISOR [address] [address] INDICATION: Slurred speech. TIA. EXAMINATION: MRA of [...] terminus. Moderate stenosis suggested at the left WELDER GUN P1/P2 segment junction. Proximal portions of the posterior cerebral arteries, superior cerebellar arteries, and PICA branches are patent. Left posterior communicating artery patent. Tiny right posterior communicating artery patent. Procedure Note Fer August MD - 07/09/[address] [address] INDICATION: Slurred speech. TIA. EXAMINATION: MRA of [...] the terminus. Moderate stenosis suggested at theleft WELDER GUN P1/P2 segment junction. Proximal portions of the [...] MRA HEAD WO CON (07/09/2024 7:13 PM SEED SERVICE ADVISOR) Anatomical Region Laterality Modality Head Magnetic Resonan ce 07/09/2024 7:53 PM SEED SERVICE ADVISOR Impressions 07/09/2024 8:00 PM SEED SERVICE ADVISOR IMPRESSION: 1. No definite large vessel intracranial arterial occlusion identified. 2. No hemodynamically significant stenosis in the visualized carotid and vertebral arteries in the neck. 3. MRA assessment somewhat degraded by motion and artifact. Referred By: VERÓNICA HUNTER Interpreted By: Fer August MD, 07/09/2024 7:53 PM Narrative 07/09/2024 8:00 PM SEED SERVICE ADVISOR [address] [address] INDICATION: Slurred speech. TIA. EXAMINATION: MRA of [...] terminus. Moderate stenosis suggested at the left WELDER GUN P1/P2 segment junction. Proximal portions of the posterior cerebral arteries, superior cerebellar arteries, and PICA branches are patent. Left posterior communicating artery patent. Tiny right posterior communicating artery patent. Procedure Note Fer August MD - 07/09/[address] [address] INDICATION: Slurred speech. TIA. EXAMINATION: MRA of [...] the terminus. Moderate stenosis suggested at theleft WELDER GUN P1/P2 segment junction. Proximal portions of the [...] MRI BRAIN WO CON (07/09/2024 7:00 PM SEED SERVICE ADVISOR) Only the most recent of2 resultswithin the time period is included. Anatomical Region Laterality Modality Head Magnetic Resonan ce 07/09/2024 7:50 PM SEED SERVICE ADVISOR Impressions 07/09/2024 7:53 PM SEED SERVICE ADVISOR IMPRESSION: 1. No acute intracranial abnormalities identified. No acute infarct, intracranial mass, or midline shift. 2. 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 3. Stable chronic encephalomalacia involving the anterior right temporal lobe, probably from prior infarct versus other remote insults. Referred By: VERÓNICA HUNTER Interpreted By: Fer August MD, 07/09/2024 7:50 PM Narrative 07/09/2024 7:53 PM SEED SERVICE ADVISOR [place] [address] INDICATION: Slurred speech. Concern for TIA. EXAMINATION: [...] Procedure Note Fer August MD - 07/09/2024 [place] [address] INDICATION: Slurred speech. Concern for TIA. EXAMINATION: [...] XR SHOULDER LT 3V (07/09/2024 4:53 PM SEED SERVICE ADVISOR) Anatomical Region Laterality Modality Shoulder Radiographic Rozina ging 07/09/2024 4:43 PM SEED SERVICE ADVISOR Impressions 07/09/2024 4:45 PM SEED SERVICE ADVISOR =====IMPRESSION:===== 1. No left shoulder acute injury identified 2. Mild inferior joint degenerative spurring Ordered By: PADMAJA LEIGH Interpreted By: Phil Valencia MD, 07/09/2024 4:43 PM Narrative 07/09/2024 4:45 PM SEED SERVICE ADVISOR [address] [address] Examination: 3 views left shoulder Exam date/time: [...] Procedure Note Phil Valencia MD - 07/09/2024 [facility] [address] [place], [place] [address] Examination: 3 views left shoulder Exam date/time: [...] * US RETROPERITONEAL COMP (07/09/2024 11:32 AM SEED SERVICE ADVISOR) Anatomical Region Laterality Modality Abdomen Ultrasound 07/09/2024 11:4 8 AM SEED SERVICE ADVISOR Impressions 07/09/2024 11:55 AM SEED SERVICE ADVISOR IMPRESSION: 1. No hydronephrosis. Bilateral ureteral jets in the urinary bladder. 2. Mild urinary bladder wall thickening. Mild cystitis would be in the differential diagnosis and recommend clinical correlation. 3. Minimal right pleural effusion. Ordered By: PADMAJA LEIGH Interpreted By: Venu Ding, 07/09/2024 11:48 AM Narrative 07/09/2024 11:55 AM SEED SERVICE ADVISOR [facility] [address] [place], [place] [address] IMAGING STUDIES: US RETROPERITONEAL COMP DATE: 07/09/2024 [...] Procedure Note Venu Ding MD - 07/09/2024 [facility] [address] [place], [place] [address] IMAGING STUDIES: US RETROPERITONEAL COMPDATE: 07/09/2024 11:05 [...] USE ECHOCARDIOGRAM W CON (07/07/2024 9:52 AM SEED SERVICE ADVISOR) Anatomical Region Laterality Modality NA Echocardiogram 07/07/2024 9:16 AM SEED SERVICE ADVISOR Narrative 07/07/2024 9:30 PM SEED SERVICE ADVISOR Echocardiography Report Pat.Name: KEYANA POOL Pat.ID: [id number] St.Date: 07/07/2024 Exam Time: 9:16:00 AM Study Type:ECHO WITH CARDIAC DOPPLER COMP Height: 67 in Weight: 177 lb BSA: 1.92 m2 Age: 5 1950,73Y Sex: M HR: 68 bpm Sonogrphr: Hugh Lantigua [facility], [facility] Pat. Stat.:Inpatient Room: [facility] Reason for Study:Ischemic Cardiomyopathy Procedures: 2D, M-mode, [...] 07/07/2024 Echocardiography Report Pat.Name: KEYANA POOL Pat.ID: [id number] .Date: 07/07/2024 Exam Time: 9:16:00 AM Study Type:ECHO WITH CARDIAC DOPPLER COMP Height: 67 in Weight: 177 lb BSA: 1.92 m2 Age: 5 1950,73Y Sex: M HR: 68 bpm Sonogrphr: Hugh Lantigua [facility], [facility] Pat. Stat.:Inpatient Room: 202 Reason for [...] * ANCA VASCULITIS PANEL (07/07/2024 6:36 AM SEED SERVICE ADVISOR) MYELOPEROXIDASE AB <1.0 <1.0 AI 2024 10:20 AM SEED SERVICE ADVISOR [employer] DEBORAH PERKINS Comment: Value Interpretation <1.0 AI: [...] ANCA <1.0 <1.0 AI 07/09/2024 10:20 AM SEED SERVICE ADVISOR [email or web address] Comment: Value Interpretation <1.0 AI: No Antibody Detected >or=1.0 AI: Antibody Detected Autoantibodies to proteinase-3 (GA-3) are accepted as characteristic for granulomatosis with polyangiitis (GPA, Aijt's), and are detectable in 95% of the histologically proven cases. The cytoplasmic IFA pattern, (c-ANCA), is based largely on autoantibody to GA-3 which serves as the primary antigen. These autoantibodies are present in active disease. Test Performed by [employer], [facility], [address] [place] [address] Zaki Beard M.D., Ph.D., Director of Laboratories , [facility] [id number] 07/07/2024 6:36 AM SEED SERVICE ADVISOR Duane Jesus MD LABORATORY Final Result [email or web address] [phone], * HIV 1 ANTIGEN(S), WITH HIV-1 AND HIV-2 ANTIBODIES (07/07/2024 6:36 AM SEED SERVICE ADVISOR) HIV 1/2 AB+ HIV1 P24 AG NON-REACTI VE NON-REACTI VE 07/07/2024 8:05 AM SEED SERVICE ADVISOR [facility] 07/07/2024 6:36 AM SEED SERVICE ADVISOR Duane Jesus MD LABORATORY Final Result [facility] [address] [place] [address], [place] [phone] * ANTINUCLEAR ANTIBODY WI RFX (MARA) (07/07/2024 6:36 AM SEED SERVICE ADVISOR) MARA <0.09 07/07/2024 2:30 PM SEED SERVICE ADVISOR [facility] Comment: NEGATIVE: <0.7 RATIO MARA PROFILE AND TITER NOT PERFORMED THE MARA SCREEN TESTS FOR THE FOLLOWING ANTIBODIES BY EIA: SSA1 (RO), SSB1 (LA), BISHOP, SCL70, JO1, CENTROMERE, HOUSESMITH HISTONE MUST BE ORDERED SEPARATELY DNA (DS) ANTIBODY 1.3 IU/ML 2:30 PM SEED SERVICE ADVISOR [facility] Comment: NEGATIVE: <10 IU/mL EQUIVOCAL: 10 to 15 IU/mL POSITIVE: >15 IU/mL THIS QUANTITATIVE ASSAY IS CALIBRATED TO THE [employer]'S WO/80 STANDARD. THE LEVEL OF dsDNA AUTOANTIBODY GERERALLY CORRELATES WITH THE LEVEL OF DISEASE ACTIVITY IN SYSTEMIC LUPUS ERYTHMATOSUS 07/07/2024 6:36 AM SEED SERVICE ADVISOR Duane Jesus MD LABORATORY Final Result [facility] [address] [place] [address], [place] [phone] [id number] * CYCLIC CITRULLINATED PEPTIDE (CCP)ANTIBODY(IGG) (07/07/2024 6:36 AM SEED SERVICE ADVISOR) CITRULLINE PEPTIDE ANTIBODY <16 <20 Units 07/09/2024 6:54 PM SEED SERVICE ADVISOR [employer] [facility] Comment: Negative: <20 Weak Positive: 20 - 39 Moderate Positive: 40 - 59 Strong Positive: >59 Test Performed by Mani Reynoso, [employer] [facility], [address] [place] [address] Zaki Beard M.D., Ph.D., Director of Laboratories , CLIA [id number] 07/07/2024 6:36 AM SEED SERVICE ADVISOR Duane Jesus MD LABORATORY Final Result [email or web address] [place] [id number] [place], [place] , [place] [phone] * SCL 70 (07/07/2024 6:36 AM SEED SERVICE ADVISOR) SCL 70 S/P/B <1.0 07/09/2024 9:52 AM SEED SERVICE ADVISOR [email or web address] Comment: Reference Range: < 1.0 NEG AI Test Performed by [employer] [place], [employer] [facility], [address] [place] [address] Zaki Beard M.D., Ph.D., Director of Laboratories , CLIA [id number] 07/07/2024 6:36 AM SEED SERVICE ADVISOR us Duane Jesus MD LABORATORY Final Result Performing Organization Address City/[facility]/ZIP Co de Phone Number [email or web address]IL[place] [id number] [place], [place] , [place] [phone] * CK (CPK) (07/07/2024 6:36 AM SEED SERVICE ADVISOR) CPK 172 35 - 232 U/L 07/07/2024 7:08 AM SEED SERVICE ADVISOR [facility] 07/07/2024 6:36 AM SEED SERVICE ADVISOR us Duane Jesus MD LABORATORY Final Result [facility] [address] [place] [id number], [place] [phone] * LIPID PANEL (07/07/2024 3:34 AM SEED SERVICE ADVISOR) CHOLESTEROL 125 <200 MG/DL 07/07/2024 4:48 AM [facility] TRIGLYCERIDES 119 <150 MG/DL 07/07/2024 4:48 AM [facility] HDL 52 >40.0 MG/DL 07/07/2024 4:48 AM [facility] LDL (CALCULATED) 49 <100 MG/DL 07/07/19 25 4:48 AM [facility] NON HDL CHOLESTEROL 73 <130 MG/DL 07/07 4:48 AM [facility] CHOL/HDL RATIO 2.4 0.0 - 4.5 07/07/2024 4:48 AM [facility] VLDL CALCULATION 24 5 - 55 MG/DL 07/07/2024 4:48 AM [facility] LIPID INTERPRETATION 07/07/2024 4:48 AM [facility] Comment: [facility] REPORT RECOMMENDATIONS: ADULT CHILD LOW RISK: CHOLESTEROL <200 <170 TRIGLYCERIDE <150 --- HDL >=60 --- LDL <100 <110 BORDERLINE: CHOLESTEROL 200-239 170-199 TRIGLYCERIDE 150-199 --- HDL 40-59 --- LDL 100-159 110-129 HIGH RISK: CHOLESTEROL >=240 >=200 TRIGLYCERIDE >=200 --- HDL <40 --- LDL >=160 >=130 07/07/2024 3:34 AM SEED SERVICE ADVISOR us Denny Spaulding MD LABORATORY Final Resul t [facility] [address] [place] [address], * THYROID STIM HORMONE, TSH (07/07/2024 3:34 AM SEED SERVICE ADVISOR) Pathologist [facility] TSH 1.270 0.358 - 3.74 uIU/ML 07/07/2024 4:58 AM SEED SERVICE ADVISOR [facility] Comment: HIGH DOSES OF BIOTIN MAY INTERFERE WITH THIS TEST RESULT. CORRELATION TO CLINICAL HISTORY AND PRESENTATION RECOMMENDED. 07/07/2024 3:34 AM SEED SERVICE ADVISOR us Denny Spaulding MD LABORATORY Final Resul t [facility] [address] [place] [address], * RESPIRATORY PCR PANEL 2 (07/07/2024 1:16 AM SEED SERVICE ADVISOR) [facility] ADENOVIRUS PCR (RESP) NOT DETECTED NOT DETECTED 07/07/2024 7:39 AM SEED SERVICE ADVISOR [facility] CORONAVIRUS 229E PCR (RESP) NOT DETECTED NOT DETECTED 07/07/2024 7:39 AM SEED SERVICE ADVISOR [facility] CORONAVIRUS HKU1 PCR (RESP) NOT DETECTED NOT DETECTED 07/07/2024 7:39 AM [facility] CORONAVIRUS NL63 PCR (RESP) NOT DETECTED NOT DETECTED 07/07/2024 7:39 AM [facility] CORONAVIRUS OC43 PCR (RESP) NOT DETECTED NOT DETECTED 07/07/2024 7:39 AM SEED SERVICE ADVISOR [facility] METAPNEUMOVIRUS PCR (RESP) NOT DETECTED NOT DETECTED 07/07/2024 7:39 AM SEED SERVICE ADVISOR [facility] RHINOVIRUS/ENTEROV IRUS PCR (RESP) NOT DETECTED NOT DETECTED 07/07/2024 7:39 AM SEED SERVICE ADVISOR [facility] INFLUENZA A PCR (RESP) NOT DETECTED NOT DETECTED 07/07/2024 7:39 AM [facility] INFLUENZA B PCR (RESP) NOT DETECTED NOT DETECTED 07/07/2024 7:39 AM SEED SERVICE ADVISOR [facility] PARAINFLUENZA 1 PCR (RESP) NOT DETECTED NOT DETECTED 07/07/2024 7:39 AM SEED SERVICE ADVISOR [facility] PARAINFLUENZA 2 PCR (RESP) NOT DETECTED NOT DETECTED 07/07/2024 7:39 AM SEED SERVICE ADVISOR [facility] PARAINFLUENZA 3 PCR (RESP) NOT DETECTED NOT DETECTED 07/07/2024 7:39 AM SEED SERVICE ADVISOR [facility] PARAINFLUENZA 4 PCR (RESP) NOT DETECTED NOT DETECTED 07/07/2024 7:39 AM SEED SERVICE ADVISOR [facility] RSV PCR (RESP) NOT DETECTED NOT DETECTED 07/07/2024 7:39 AM SEED SERVICE ADVISOR [facility] B PARAPERTUSIS PCR (RESP) NOT DETECTED NOT DETECTED 07/07/2024 7:39 AM SEED SERVICE ADVISOR [facility] BORDETELLA PERTUSSIS PCR (RESP) NOT DETECTED NOT DETECTED 07/07/2024 7:39 AM SEED SERVICE ADVISOR [facility] CHLAMYDOPHILA PNEUMONIAE PCR (RESP) NOT DETECTED NOT DETECTED 07/07/2024 7:39 AM SEED SERVICE ADVISOR [facility] MYCOPLASMA PNEUMONIAE PCR (RESP) NOT DETECTED NOT DETECTED 07/07/2024 7:39 AM SEED SERVICE ADVISOR [facility] CORONAVIRUS SARS COV 2 PCR (RESP) NOT DETECTED NOT DETECTED 07/07/2024 7:39 AM SEED SERVICE ADVISOR [facility] NASOPHARYNGEAL SWAB / Unknown 07/07/2024 1:16 AM SEED SERVICE ADVISOR Duane Jesus MD MICROBIOLOGY - GENERAL ORDER PRECIOUS Final Result [facility] [address] [place] [address], [place] [phone] * (ABNORMAL) VITAMIN B-12 (07/07/2024 12:30 AM SEED SERVICE ADVISOR) VITAMIN B12 S/P/B 1,551(H) 254 - 1,320 PG/ML 07/07/2024 1:34 AM SEED SERVICE ADVISOR [facility] 07/07/2024 12:3 0 AM SEED SERVICE ADVISOR us Duane Jesus MD LABORATORY Final Result [facility] [address] [place] [address], [place] [phone] * (ABNORMAL) TRANSFERRIN (07/07/2024 12:30 AM SEED SERVICE ADVISOR) TRANSFERRIN 172(L) 200 - 360 mg/dL 07/07/2024 1:02 AM SEED SERVICE ADVISOR [facility] 07/07/2024 12:3 0 AM SEED SERVICE ADVISOR us Duane Jesus MD LABORATORY Final Result Performing Organization Address City/[facility]/ZIP Co de Phone Number [facility] [address] [place] [address], [place] [phone] * (ABNORMAL) FOLIC ACID SERUM (07/07/2024 12:30 AM SEED SERVICE ADVISOR) FOLATE 46.6(H) 3.1 - 17.5 NG/ML 07/07/2024 1:34 AM SEED SERVICE ADVISOR [facility] 07/07/2024 12:3 0 AM SEED SERVICE ADVISOR us Duane Jesus MD LABORATORY Final Result Performing Organization Address City/[facility]/ZIP Co de Phone Number [facility] [address] [place] [address], [place] [phone] * DRUG SCREEN RAPID (07/06/2024 11:25 PM SEED SERVICE ADVISOR) AMPHETAMINE (U) NEGATIVE NEGATIVE 12:07 AM [facility] BARBITURATES SCREEN (U) NEGATIVE NEGATIVE 07/07/2024 12:07 AM [facility] BENZODIAZEPINES SCREEN (U) NEGATIVE NEGATIVE 07/07/2024 12:07 AM [facility] CANNABINOIDS SCREEN (U) NEGATIVE NEGATIVE 07/07/2024 12:07 AM [facility] COCAINE METABOLITES (U) NEGATIVE NEGATIVE 07/07/2024 12:07 AM [facility] METHADONE (U) NEGATIVE NEGATIVE 07/07/2024 12:07 AM [facility] OPIATE SCREEN (U) NEGATIVE NEGATIVE 025 12:07 AM [facility] PHENCYCLIDINE PCP (U) NEGATIVE NEGATIVE 07/07/2024 12:07 AM [facility] Comment: NOTE: RESULTS OF THIS DRUG SCREEN SHOULD BE USED FOR MEDICAL PURPOSES ONLY AND NOT FOR LEGAL OR EMPLOYMENT PURPOSES. POSITIVE RESULTS ARE NOT CONFIRMED. MEDICATIONS CONTAINING EPHEDRINE MAY CAUSE FALSE POSITIVE AMPHETAMINE CALL [phone], LAB, TO REQUEST CONFIRMATION TESTING. IF CREATININE IS <40 mg/dL. RECOLLECTION IS SUGGESTED. AMPHETAMINE- 500 NG/ML BARBITURATE- 200 NG/ML BENZODIAZEPINES- 200 NG/ML THC- 50 NG/ML COCAINE- 150 NG/ML METHADONE- 300 NG/ML OPIATE- 300 MG/ML PCP- 25 NG/ML CREATININE (U) 71.6 39 - 259 MG/DL 07/07/2024 12:07 AM [facility] URINE SPECIMEN / Unknown 07/06/2024 11:25 PM SEED SERVICE ADVISOR us Duane Jesus MD URINE ORDERABLES Final Resul t [facility] [address] [place] [address], * URINE BACTERIA CULTURE (07/06/2024 11:25 PM SEED SERVICE ADVISOR) SPEC DESCRIPTION URINE CLEAN CATCH 07/06/2024 11:22 PM SEED SERVICE ADVISOR [facility] SPECIAL REQUESTS NO SPECIAL REQUEST 07/06/2024 11:22 PM SEED SERVICE ADVISOR [facility] CULTURE RESULT NO GROWTH 2 DAYS 07/09/2024 7:01 AM SEED SERVICE ADVISOR [facility] URINE SPECIMEN OBTAINED BY CLEAN CATCH PROCEDURE / Unknown 07/06/2024 11:25 PM SEED SERVICE ADVISOR 07/06/2024 11:47 PM SEED SERVICE ADVISOR us Duane Jesus MD MICROBIOLOGY - GENERAL ORDER PRECIOUS Final Result [facility] [address] [place] [address], [place] [phone] * COLONOSCOPY (05/31/2018) us Documents Scanned SCANNING [...] 7:16 PM 05/23/2022 2:52 PM Care Teams Video Tape Duplicator Relationship Specialty Start Date End Date Adrienne Marin MD [address] [place] [address] PCP - General INTERNAL MEDICINE 05/09/24 Gladys Sanchez MD [address] [place] [id number] [place] Mds Manager CARDIOVASCULAR DISEASE 05/28/19
--- OUTSIDE RECORDS SUMMARY | 2024-08-23 13:42 | XMS_ITS | Encounter Summary ---
Author Organization [facility] Address [facility] [place] [address] Care Team Providers Care Core Winder Machine Operator Name Role Phone Adrian Lee MD Primary Care Provider [phone] Gladys Sanchez MD Unavailable [phone] Adrienne Marin MD Primary Care Provider [phone] Encounter Details Date Type Department Care Team (Late st Contact Info) Description 07/25/2022 Abstract [facility] BUSINESS OFFICE [address] [place] [id number] Abstract, Doc Cikda Social History Tobacco Use [...] Sex Assigned at Male 07/08/2024 7:30 AM NETWORKS COMPUTER CONSULTANT Legal Sex Male 8:56 PM CDT Gender Identity Male 07/08/2024 7:30 AM NETWORKS COMPUTER CONSULTANT Sexual Orientation Straight 07/08/2024 7: 30 AM NETWORKS COMPUTER CONSULTANT COVID-19 Exposure Response Date Recorded In the last 10 days, have yo u been in contact with someone who was confirmed or suspected to have Coronavirus/COVID-19? No / Unsure 07/28/2022 2:26 PM NETWORKS COMPUTER CONSULTANT documented as of this encounter Functional Status * RETIRED Are you deaf or do you have serious difficulty hearing Answer Date of Assessment Author Status Yes 06/14/2022 7:00 PM NETWORKS COMPUTER CONSULTANT Activ e * RETIRED Are you blind or do you have serious difficulty seeing, even when wearing glasses? Answer Date of Assessment Author Status No 06/14/2022 7:00 PM NETWORKS COMPUTER CONSULTANT Activ e * Do you have serious difficulty walking or climbing stairs? Answer Date of Assessment Author Status No 06/14/2022 7:00 PM NETWORKS COMPUTER CONSULTANT Cathy Giles RN Active * Do you have difficulty dressing or bathing? Answer Date of Assessment Author Status No 06/14/2022 7:00 PM NETWORKS COMPUTER CONSULTANT Cathy Giles RN Active * Because of a physical, mental, or emotional condition, do you have difficulty doing errands alone such as visiting a doctor's office or shopping? Answer Date of Assessment Author Status No 06/14/2022 7:00 PM NETWORKS COMPUTER CONSULTANT Cathy Giles RN Active documented as of this encounter Mental Status * Because of a physical, mental, or emotional condition, do you have serious difficulty concentrating, remembering, or making decisions? Answer Entry Date Author Status No 06/14/2022 7:00 PM NETWORKS COMPUTER CONSULTANT Cathy Giles RN Active documented in this encounter Plan of Treatment Upcoming Encounters Date Type Department Care Team (Late st Contact Info) Description 08/25/2024 1:30 PM NETWORKS COMPUTER CONSULTANT Appointment [facility] [place] [place] [address] Adrienne Marin MD [address] [place] [address] [phone] 08/27/2024 1:30 PM NETWORKS COMPUTER CONSULTANT Appointment [facility] [place] [address] Adrienne Marin MD [address] [place] [address] [phone] 08/29/2024 1:30 PM NETWORKS COMPUTER CONSULTANT Appointment [facility] [place] [address] Adrienne Marin MD [address] [place] [phone] 09/01/2024 11:30 AM CDT Office Visit [facility] [address] [place] [address] Anders Palacio, COURTNEY [facility] [address] [place] [address] 09/01/2024 1:30 PM CDT Appointment [facility] [place] [address] Adrienne Marin MD [address] [place] [phone] 09/03/2024 1:30 PM CDT [facility] [address] Adrienne Marin MD [address] [place] [phone] 09/05/2024 1:30 PM CDT Appointment [facility] [place] [address] Adrienne Marin MD [address] [place] [phone] 09/08/2024 1:30 PM CDT Appointment [facility] [place] [address] Adrienne Marin MD [address] [place] [phone] 09/10/2024 1:30 PM CDT Appointment [facility] [address] Adrienne Marin MD [address] [place] [phone] 09/12/2024 1:30 PM CDT App[facility]ment [facility] [facility] [place] [address] Adrienne Marin MD [address] [place] [phone] 09/15/2024 1:30 PM CDT Appointment [facility] [address] [place] [address] [place] [address] Adrienne Marin MD [address] [place] [phone] 09/17/2024 1:30 PM CDT Appointment [facility] [address] [place], [place] [address] [address] Adrienne Marin MD [address] [place] [phone] 09/19/2024 1:30 PM CDT Appointment [facility] [place] [address] Adrienne Marin MD [address] [place] [phone] 09/22/2024 1:30 PM CDT Appointment [facility] [address] [place], [place] [address] [address] Adrienne Marin MD [address] [place] [phone] 09/24/2024 1:30 PM CDT Appointment [facility] [address] [place] [address] Adrienne Marin MD [address] [place] [phone] 09/26/2024 1:30 PM CDT Appointment [facility] [place] [address] Adrienne Marin MD [address] [place] [phone] 09/29/2024 1:30 PM CDT Appointment [facility] [place] [address] Adrienne Marin MD [address] [place] [phone] 10/01/2024 1:30 PM CDT Appointment [facility] [place] [address] Adrienne Marin MD [address] [place] [phone] 10/03/2024 1:30 PM CDT Appointment [facility] [place] [address] Adrienne Marin MD [address] [place] [phone] 10/06/2024 1:30 PM CDT Appointment [facility] [place] [address] Adrienne Marin MD [address] [place] [phone] 10/08/2024 1:30 PM CDT Appointment [facility] [address] [place] [address] Adrienne Marin MD [address] [place] [phone] 10/10/2024 1:30 PM CDT App[facility]ment [facility] [place] [address] Adrienne Marin MD [address] [place] [phone] 10/13/2024 1:30 PM CDT Appointment [facility] [address] [place], [place] [address] [address] Adrienne Marin MD [address] [place] [phone] 10/15/2024 1:30 PM CDT Appointment [facility] [address] [place] [address] [address] Adrienne Marin MD [address] [place] [phone] 10/17/2024 1:30 PM CDT App[facility]ment [facility] [place] [address] Adrienne Marin MD [address] [place] [phone] 10/20/2024 1:30 PM CDT Appointment [facility] [place] [address] Adrienne Marin MD [address] [place] [phone] 10/22/2024 1:30 PM CDT Appointment [facility] [address] [place] [address] Adrienne Marin MD [address] [place] [phone] 10/24/2024 1:30 PM CDT Appointment [facility] [address] [place] [address] Adrienne Marin MD [address] [place] [phone] 10/27/2024 1:30 PM CDT Appointment [facility] [place] [address] Adrienne aMrin MD [address] [place] [phone] 10/29/2024 1:30 PM CDT Appointment [facility] [place] [address] Adrienne Marin MD [address] [place] [phone] 10/31/2024 1:30 PM CDT App[facility]ment [facility] [place] [address] Adrienne Marin MD [address] [place] [phone] 11/03/2024 1:30 PM CDT Appointment [facility] [address] [place] [address] Adrienne Marin MD [address] [place] [phone] 11/05/2024 1:30 PM CDT Appointment [facility] [address] [place] [address] Adrienne Marin MD [address] [place] [phone] 11/07/2024 1:30 PM CDT Appointment [facility] [address] [place] [address] Adrienne Marin MD [address] [place] [phone] 11/07/2024 2:40 PM CDT Office Visit [facility] [address] [phone] Hannah Garrison MD [address] [place] [address] 11/10/2024 1:30 PM CDT Appointment [facility] [place] [address] Adrienne Marin MD [address] [place] [phone] 11/12/2024 1:30 PM CDT Appointment [facility] [place] [address] Adrienne Marin MD [address] [place] [phone] 11/14/2024 1:30 PM CDT Appointment [facility] [address] [place] [address] Adrienne Marin MD [address] [place] [phone] 11/19/2024 1:30 PM CDT Appointment [facility] [address] [place] [address] [place] [address] Adrienne Marin MD [address] [place] [phone] 11/21/2024 1:30 PM CDT Appointment [facility] [address] [place] [address] [address] [place] [address] Adrienne Marni MD [address] [place] [phone] 11/24/2024 1:30 PM CDT Appointment [facility] [address] [place] [address] [address] [place] [address] Adrienne Marin MD [address] [place] [phone] 11/26/2024 1:30 PM CDT Appointment [facility] [address] [place] [address] [place] [address] Adrienne Marin MD [address] [place] [phone] documented as of this encounter Goals Goal Patient Goal Type Associated Problems Recent Progress Patient-Stated? Author Patient will return to prior living situation and remain independent in ADLs upon discharge from hospital General No Diana Todd protective clothing issuer - family caregiver with be involved in care transitions and discharge planning General No Nicole Cole RN Safety Patient/family will have appropriate support at home upon discharge General No Ayleen Garcia, HOLIDAY DETECTOR OPERATOR documented as of this encounter Visit Diagnoses Not on filedocumented in this encounter Additional Health Concerns Infection Onset Date Last Indicated Resolved Time COVID-19 Rule Out 05/13/2023 05/13/2023 05/13/2023 4:14 PM NETWORKS COMPUTER CONSULTANT COVID-19 Rule Out 05/13/2023 05/13/2023 05/14/2023 1:35 AM NETWORKS COMPUTER CONSULTANT COVID-19 Rule Out 07/08/2023 07/08/2023 07/08/2023 5:34 PM NETWORKS COMPUTER CONSULTANT COVID-19 Rule Out 07/07/2024 07/07/2024 07/07/2024 7:39 AM NETWORKS COMPUTER CONSULTANT Assessment Noted Time PHQ-9 Depression Total Score: 0 11/19/19 3:11 PM CDT documented as of this encounter Care Teams Core Winder Machine Operator Relationship Specialty Start Date End Date Adrian Lee MD [address] [place] [phone] PCP - General FAMILY PRACTICE 04/22/18 05/08/24 Adrienne Marin MD [address] [place] [phone] PCP - General INTERNAL MEDICINE 05/09/24 Gladys Sanchez MD [address] [place] [address] [place] Heel Cover Softener CARDIOVASCULAR DISEASE 05/28/19 documented as of this encounter
--- OUTSIDE RECORDS SUMMARY | 2024-08-23 13:42 | XMS_ITS | Encounter Summary ---
Author Organization [facility] Address [facility] [place] [address] Care Team Providers Care Valve Pipe Irrigator Name Role Phone Pee Lafleur MD Unavailable Unavailable Adrian Lee MD Primary Care Provider [phone] Gladys Sanchez MD Unavailable [phone] Adrienne Marin MD Primary Care Provider [phone] Encounter Details Date Type Department Care Team (Late st Contact Info) Description 11/30/2018 Abstract [facility] [address] [place] [address] , Generic Conversion, Social History Tobacco Use Types Packs/Day Years Used Date Smoking Tobacco: Never Smokeless Tobacco: Never Sex and Gender Information Value Date Recorded Sex Assigned at Male 07/08/2024 7:30 AM INSIDE SALES ACCOUNT MANAGER Legal Sex Male 8:56 PM CDT Gender Identity Male 07/08/2024 7:30 AM INSIDE SALES ACCOUNT MANAGER Sexual Orientation Straight 07/08/2024 7: 30 AM INSIDE SALES ACCOUNT MANAGER documented as of this encounter Plan of Treatment Upcoming Encounters Date Type Department Care Team (Late st Contact Info) Description 08/25/2024 1:30 PM INSIDE SALES ACCOUNT MANAGER Appointment [place] [address] Adrienne Marin MD [address] [place] [phone] 08/27/2024 1:30 PM INSIDE SALES ACCOUNT MANAGER Appointment [facility] [place] [address] Adrienne Marin MD [address] [place] [phone] 08/29/2024 1:30 PM INSIDE SALES ACCOUNT MANAGER Appointment [facility] [place] [address] Adrienne Marin MD [address] [place] [phone] 09/01/2024 11:30 AM CDT [facility] [address] [place] [address] Anders Palacio NP Three [facility] [address] [place] [address] 09/01/2024 1:30 PM CDT Appointment [facility] [address] [place], [place] [address] [address] Adrienne Marin MD [address] [place] [phone] 09/03/2024 1:30 PM CDT Appointment [facility] [place] [address] Adrienne Marin MD [address] [place] [phone] 09/05/2024 1:30 PM CDT Appointment [facility] [place] [address] Adrienne Marin MD [address] [place] [phone] 09/08/2024 1:30 PM CDT Appointment [facility] [address] [place] [address] Adrienne Marin MD [address] [place] [phone] 09/10/2024 1:30 PM CDT Appointment [facility] [place] [address] Adrienne Marin MD [address] [place] [phone] 09/12/2024 1:30 PM CDT Appointment [facility] [facility] [place] [address] Adrienne Marin MD [address] [place] [phone] 09/15/2024 1:30 PM CDT Appointment [facility] [address] [place], [place] [address] [address] Adrienne Marin MD [address] [place] [phone] 09/17/2024 1:30 PM CDT Appointment [facility] [place] [address] Adrienne Marin MD [address] [place] [phone] 09/19/2024 1:30 PM CDT Appointment [facility] [place] [address] Adrienne Marin MD [address] [place] [phone] 09/22/2024 1:30 PM CDT Appointment [facility] [address] [place] [address] Adrienne Marin MD [address] [place] [phone] 09/24/2024 1:30 PM CDT Appointment [facility] [place] [address] Adrienne Marin MD [address] [place] [phone] 09/26/2024 1:30 PM CDT Appointment [facility] [place] [address] Adrienne Marin MD [address] [place] [phone] 09/29/2024 1:30 PM CDT Appointment [facility] [place] [address] Adrienne Marin MD [address] [place] [phone] 10/01/2024 1:30 PM CDT Appointment [facility] [place] [address] Adrienne Marin MD [address] [place] [phone] 10/03/2024 1:30 PM CDT Appointment [facility] [place] [address] Adrienne Marin MD [address] [place] [phone] 10/06/2024 1:30 PM CDT Appointment [facility] [address] [place] [address] Adrienne Marin MD [address] [place] [phone] 10/08/2024 1:30 PM CDT Appointment [facility] [place] [address] Adrienne Marin MD [address] [place] [phone] 10/10/2024 1:30 PM CDT Appointment [facility] [place] [address] Adrienne Marin MD [address] [place] [phone] 10/13/2024 1:30 PM CDT Appointment [facility] [address] [place], [place] [address] [address] Adrienne Marin MD [address] [place] [phone] 10/15/2024 1:30 PM CDT Appointment [facility] [place] [address] Adrienne Marin MD [address] [place] [phone] 10/17/2024 1:30 PM CDT Appointment [facility] [place] [address] Adrienne Marin MD [address] [place] [phone] 10/20/2024 1:30 PM CDT Appointment [facility] [address] [place] [address] Adrienne Marin MD [address] [place] [phone] 10/22/2024 1:30 PM CDT Appointment [facility] [address] [place] [address] Adrienne Marin MD [address] [place] [phone] 10/24/2024 1:30 PM CDT Appointment [facility] [place] [place] [address] Adrienne Marin MD [address] [place] [phone] 10/27/2024 1:30 PM CDT Appointment [facility] [place] [address] Adrienne Marin MD [address] [place] [phone] 10/29/2024 1:30 PM CDT Appointment [facility] [place] [address] Adrienne Marin MD [address] [place] [phone] 10/31/2024 1:30 PM CDT Appointment [facility] [place] [address] Adrienne Marin MD [address] [place] [phone] 11/03/2024 1:30 PM CDT Appointment [facility] [address] [place] [address] Adrienne Marin MD [address] [place] [phone] 11/05/2024 1:30 PM CDT Appointment [facility] [place] [address] Adrienne Marin MD [address] [place] [phone] 11/07/2024 1:30 PM CDT Appointment [facility] [place] [address] Adrienne Marin MD [address] [place] [phone] 11/07/2024 2:40 PM CDT Office Visit [facility] Diabetes and Endocrinology [address] [address] Hannah Garrison MD [address] [place] [address] 11/10/2024 1:30 PM CDT Appointment [facility] [place] [place] [address] Adrienne Marin MD [address] [place] [phone] 11/12/2024 1:30 PM CDT Appointment [facility] [place] [address] Adrienne Marin MD [address] [place] [phone] 11/14/2024 1:30 PM CDT Appointment [facility] [address] [place] [address] [place] [address] Adrienne Marin MD [address] [place] [phone] 11/19/2024 1:30 PM CDT Appointment [facility] [address] [place] [address] [place] [address] Adrienne Marin MD [address] [place] [phone] 11/21/2024 1:30 PM CDT Appointment [facility] [address] [place] [address] [place] [address] Adrienne Marin MD [address] [place] [phone] 11/24/2024 1:30 PM CDT Appointment [facility] [address] [place], [place] [address] [address] Adrienne Marin MD [address] [place] [phone] 11/26/2024 1:30 PM CDT Appointment [facility] [place] [address] Adrienne Marin MD [address] [place] [phone] documented as of this encounter Visit Diagnoses Not on filedocumented in this encounter Additional Health Concerns Infection Onset Date Last Indicated Resolved Time COVID-19 Rule Out 07/19/2021 07/19/2021 07/19/2021 9:17 PM INSIDE SALES ACCOUNT MANAGER COVID-19 Rule Out 07/19/2021 07/19/2021 07/20/2021 7:01 PM INSIDE SALES ACCOUNT MANAGER COVID-19 Rule Out 08/18/2021 08/18/2021 08/18/2021 12:03 PM INSIDE SALES ACCOUNT MANAGER COVID-19 Confirmed 08/18/2021 08/18/2021 12:32 AM CDT COVID-19 Rule Out 09/13/2021 09/13/2021 09/13/2021 5:00 AM CDT COVID-19 Rule Out 05/23/2022 05/23/2022 05/23/2022 3:38 PM INSIDE SALES ACCOUNT MANAGER Influenza - Seasonal 05/23/2022 05/23/2022 023 12:34 AM INSIDE SALES ACCOUNT MANAGER COVID-19 Rule Out 05/13/2023 05/13/2023 05/13/2023 4:14 PM INSIDE SALES ACCOUNT MANAGER COVID-19 Rule Out 05/13/2023 05/13/2023 05/14/2023 1:35 AM INSIDE SALES ACCOUNT MANAGER COVID-19 Rule Out 07/08/2023 07/08/2023 07/08/2023 5:34 PM INSIDE SALES ACCOUNT MANAGER COVID-19 Rule Out 07/07/2024 07/07/2024 07/07/2024 7:39 AM INSIDE SALES ACCOUNT MANAGER documented as of this encounter Care Teams Valve Pipe Irrigator Relationship Specialty Start Date End Date Adrian Lee MD [address] [place] [address] [place] [address] PCP - General FAMILY PRACTICE 04/22/18 05/08/24 Adrienne Marin MD [address] [place] [address] PCP - General INTERNAL MEDICINE 05/09/24 Pee Lafleur MD [employer] [facility] CARDIOVASCULAR DISEASE 11/02/17 05/27/19 Gladys Sanchez MD [address] [place] [address] [employer] [facility] CARDIOVASCULAR DISEASE 05/28/19 documented as of this encounter
--- OUTSIDE RECORDS SUMMARY | 2024-08-23 13:42 | XMS_ITS | Encounter Summary ---
Author Organization [facility] Address [facility] [place] [address] Care Team Providers Care Wax Bleacher Name Role Phone Adrian Lee MD Primary Care Provider [phone] Gladys Sanchez MD Unavailable [phone] Adrienne Marin MD Primary Care Provider [phone] Encounter Details Date Type Department Care Team (Late st Contact Info) Description 10/26/2020 Abstract [facility] [address] [place] [address] Social History Tobacco Use Types Packs/Day Years [...] Sex Assigned at Male 07/08/2024 7:30 AM AIX ADMINISTRATOR Legal Sex Male 8:56 PM CDT Gender Identity Male 07/08/2024 7:30 AM AIX ADMINISTRATOR Sexual Orientation Straight 07/08/2024 7: 30 AM AIX ADMINISTRATOR COVID-19 Exposure Response Date Recorded In the last month, have you been in contact with someone who was confirmed or suspected to have Coronavirus / COVID-19? No / Unsure 10/02/2020 11:49 AM CDT documented as of this encounter Plan of Treatment Upcoming Encounters Date Type Department Care Team (Late st Contact Info) Description 08/25/2024 1:30 PM AIX ADMINISTRATOR Appointment [facility] [place] [address] Adrienne Marin MD [address] [place] [phone] 08/27/2024 1:30 PM AIX ADMINISTRATOR Appointment [facility] [place] [place] [address] Adrienne Marin MD [address] [place] [phone] 08/29/2024 1:30 PM AIX ADMINISTRATOR Appointment [facility] [place] [place] [address] Adrienne Marin MD [address] [place] [phone] 09/01/2024 11:30 AM CDT Office Visit [address] [address] Anders Palacio, COURTNEY [facility] [address] [place] [address] 09/01/2024 1:30 PM CDT Appointment [facility] [place] [address] Adrienne Marin MD [address] [place] [phone] 09/03/2024 1:30 PM CDT Appointment [facility] [place] [address] Adrienne Marin MD [address] [place] [phone] 09/05/2024 1:30 PM CDT Appointment [facility] [address] [place] [address] Adrienne Marin MD [address] [place] [phone] 09/08/2024 1:30 PM CDT Appointment [facility] [address] [place] [address] Adrienne Marin MD [address] [place] [phone] 09/10/2024 1:30 PM CDT Appointment [facility] [place] [address] Adrienne Marin MD [address] [place] [phone] 09/12/2024 1:30 PM CDT Appointment [facility] [place] [address] Adrienne Marin MD [address] [place] [phone] 09/15/2024 1:30 PM CDT Appointment [facility] [place] [address] Adrienne Marin MD [address] [place] [phone] 09/17/2024 1:30 PM CDT Appointment [facility] [address] [place] [address] Adrienne Marin MD [address] [place] [phone] 09/19/2024 1:30 PM CDT Appointment [facility] [address] [place] [address] Adrienne Marin MD [address] [place] [phone] 09/22/2024 1:30 PM CDT Appointment [facility] [address] [place] [address] Adrienne Marin MD [address] [place] [phone] 09/24/2024 1:30 PM CDT Appointment [facility] [place] [address] Adrienne Marin MD [address] [place] [phone] 09/26/2024 1:30 PM CDT Appointment [facility] [place] [address] Adrienne Marin MD [address] [place] [phone] 09/29/2024 1:30 PM CDT Appointment [facility] [place] [address] Adrienne Marin MD [address] [place] [phone] 10/01/2024 1:30 PM CDT Appointment [facility] [address] [place] [address] Adrienne Marin MD [address] [place] [phone] 10/03/2024 1:30 PM CDT Appointment [facility] [place] [address] Adrienne Marin MD [address] [place] [phone] 10/06/2024 1:30 PM CDT Appointment [facility] [address] [place], [place] [address] [address] Adrienne Marin MD [address] [place] [phone] 10/08/2024 1:30 PM CDT Appointment [facility] [address] [place], [place] [address] [address] Adrienne Marin MD [address] [place] [phone] 10/10/2024 1:30 PM CDT Appointment [facility] [place] [address] Adrienne Marin MD [address] [place] [phone] 10/13/2024 1:30 PM CDT Appointment [facility] [place] [address] Adrienne Marin MD [address] [place] [phone] 10/15/2024 1:30 PM CDT Appointment [facility] [address] [place] [address] [place] [address] Adrienne Marin MD [address] [place] [phone] 10/17/2024 1:30 PM CDT Appointment [facility] [address] [place] [address] [place] [address] Adrienne Marin MD [address] [place] [phone] 10/20/2024 1:30 PM CDT Appointment [facility] [address] [place] [address] [place] [address] Adrienne Marin MD [address] [place] [phone] 10/22/2024 1:30 PM CDT Appointment [facility] [address] [place], [place] [address] [address] Adrienne Marin MD [address] [place] [phone] 10/24/2024 1:30 PM CDT Appointment [facility] [place] [address] Adrienne Marin MD [address] [place] [phone] 10/27/2024 1:30 PM CDT Appointment [facility] [address] [place], [place] [address] [address] Adrienne Marin MD [address] [place] [phone] 10/29/2024 1:30 PM CDT Appointment [facility] [address] [place] [address] Adrienne Marin MD [address] [place] [phone] 10/31/2024 1:30 PM CDT Appointment [facility] [address] [place] [address] Adrienne Marin MD [address] [place] [phone] 11/03/2024 1:30 PM CDT Appointment [facility] [place] [address] Adrienne Mrain MD [address] [place] [phone] 11/05/2024 1:30 PM CDT Appointment [facility] [place] [address] Adrienne Marin MD [address] [place] [phone] 11/07/2024 1:30 PM CDT Appointment [facility] [place] [place] [address] Adrienne Marin MD [address] [place] [phone] 11/07/2024 2:40 PM CDT Office Visit [facility] Medical Group Diabetes and Endocrinology - [address] [phone] Hannah Garrison MD [address] [place] [address] [place] [address] 11/10/2024 1:30 PM CDT Appointment [facility] [address] [place] [address] Adrienne Marin MD [address] [place] [phone] 11/12/2024 1:30 PM CDT Appointment [facility] [place] [address] Adrienne Marin MD [address] [place] [phone] 11/14/2024 1:30 PM CDT Appointment [facility] [address] [place], [place] [address] [address] Adrienne Marin MD [address] [place] [phone] 11/19/2024 1:30 PM CDT Appointment [facility] [address] [place], [place] [address] [address] Adrienne Marin MD [address] [place] [phone] 11/21/2024 1:30 PM CDT Appointment [facility] [place] [address] Adrienne Marin MD [address] [place] [phone] 11/24/2024 1:30 PM CDT Appointment [facility] [place] [address] Adrienne Marin MD [address] [place] [phone] 11/26/2024 1:30 PM CDT Appointment [facility] [address] [place] [address] Adrienne Marin MD [address] [place] [phone] documented as of this encounter Visit Diagnoses Not on filedocumented in this encounter Additional Health Concerns Infection Onset Date Last Indicated Resolved Time COVID-19 Rule Out 07/19/2021 07/19/2021 07/19/2021 9:17 PM AIX ADMINISTRATOR COVID-19 Rule Out 07/19/2021 07/19/2021 07/20/2021 7:01 PM AIX ADMINISTRATOR COVID-19 Rule Out 08/18/2021 08/18/2021 08/18/2021 12:03 PM AIX ADMINISTRATOR COVID-19 Confirmed 08/18/2021 08/18/2021 12:32 AM CDT COVID-19 Rule Out 09/13/2021 09/13/2021 09/13/2021 5:00 AM CDT COVID-19 Rule Out 05/23/2022 05/23/2022 05/23/2022 3:38 PM AIX ADMINISTRATOR Influenza - Seasonal 05/23/2022 05/23/2022 023 12:34 AM AIX ADMINISTRATOR COVID-19 Rule Out 05/13/2023 05/13/2023 05/13/2023 4:14 PM AIX ADMINISTRATOR COVID-19 Rule Out 05/13/2023 05/13/2023 05/14/2023 1:35 AM AIX ADMINISTRATOR COVID-19 Rule Out 07/08/2023 07/08/2023 07/08/2023 5:34 PM AIX ADMINISTRATOR COVID-19 Rule Out 07/07/2024 07/07/2024 07/07/2024 7:39 AM AIX ADMINISTRATOR documented as of this encounter Care Teams Wax Bleacher Relationship Specialty Start Date End Date Adrian Lee MD [address] [place] [address] PCP - General FAMILY PRACTICE 04/22/18 05/08/24 Adrienne Marin MD [address] [place] [address] PCP - General INTERNAL MEDICINE 05/09/24 Gladys Sanchez MD [address] [place] [address] [place] [facility] CARDIOVASCULAR DISEASE 05/28/19 documented as of this encounter
--- OUTSIDE RECORDS SUMMARY | 2024-08-23 13:42 | XMS_ITS | Encounter Summary ---
Author Organization [facility] Address [facility] [place] [address] Care Team Providers Care Licensed Nuclear Operator Name Role Phone Gladys Sanchez MD Unavailable [phone] Adrienne Marin MD Primary Care Provider Encounter Details Date Type Department Care Team (Latest Contact Info) Description 08/22/2024 Travel Social History Tobacco Use Types Packs/Day Years Used Date Smoking Tobacco: Never Passive Smoke Exposure: Never Smokeless Tobacco: Never Comments:non-smoker Alcohol Use Standard Drinks/Week Comments No 0 (1 standard drink = 0.6 oz pur e alcohol) [facility] Utilities Answer Date Recorded In the past 12 months has e [employer], gas, oil, or water [place] [employer] threatened to shut off services in your [...] place to sleep or slept in a long-term (including now)? No 05/13/2023 Housing Stability Vital Sign Answer Jayden e Recorded In the last 12 months, was t here a time when you were not able to pay the mortgage or rent on time? No 07/15/2024 In the past 12 months, how m any times have you moved where you were living? 0 07/15/2024 At any time in the past 12 m [facility], were you homeless or living in a long-term (including now)? No 07/15/2024 Sex and Gender Information Value Date Recorded Sex Assigned at Male 07/08/2024 7:30 AM SENIOR SOFTWARE TEST ENGINEER Legal Sex Male 8:56 PM CDT Gender Identity Male 07/08/2024 7:30 AM SENIOR SOFTWARE TEST ENGINEER Sexual Orientation Straight 07/08/2024 7: 30 AM SENIOR SOFTWARE TEST ENGINEER documented as of this encounter Functional Status [...] st Contact Info) Description 08/25/2024 1:30 PM SENIOR SOFTWARE TEST ENGINEER Appointment [facility] [place] [address] Adrienne Marin MD [address] [place] [phone] 08/27/2024 1:30 PM SENIOR SOFTWARE TEST ENGINEER Appointment [facility] [place] [address] Adrienne Marin MD [address] [place] [phone] 08/29/2024 1:30 PM SENIOR SOFTWARE TEST ENGINEER Appointment [facility] [place] [address] Adrienne Marin MD [address] [place] [phone] 09/01/2024 11:30 AM CDT Office Visit [facility], [facility] [address] [place], [place] [address] Anders Palacio NP [facility] [address] [place] [address] 09/01/2024 1:30 PM CDT Appointment [facility] [place] [address] Adrinene Marin MD [address] [place] [phone] 09/03/2024 1:30 PM CDT Appointment [facility] [place] [address] Adrienne Marin MD [address] [place] [phone] 09/05/2024 1:30 PM CDT Appointment [facility] [place] [address] Adrienne Marin MD [address] [place] [phone] 09/08/2024 1:30 PM CDT Appointment [facility] [place] [address] Adrienne Marin MD [address] [place] [phone] 09/10/2024 1:30 PM CDT Appointment [facility] [address] [place] [address] Adrienne Marin MD [address] [place] [phone] 09/12/2024 1:30 PM CDT Appointment [facility] [address] [place] [address] Adrienne Marin MD [address] [place] [phone] 09/15/2024 1:30 PM CDT Appointment [facility] [address] [place] [address] Adrienne Marin MD [address] [place] [phone] 09/17/2024 1:30 PM CDT Appointment [facility] [place] [address] Adrienne Marin MD [address] [place] [phone] 09/19/2024 1:30 PM CDT Appointment [facility] [address] [place] [address] Adrienne Marin MD [address] [place] [phone] 09/22/2024 1:30 PM CDT Appointment [facility] [address] [place] [address] Adrienne Marin MD [address] [place] [phone] 09/24/2024 1:30 PM CDT Appointment [facility] [address] [place] [address] [place] [address] Adrienne Marin MD [address] [place] [phone] 09/26/2024 1:30 PM CDT Appointment [facility] [address] [place] [address] [place] [address] Adrienne Marin MD [address] [place] [phone] 09/29/2024 1:30 PM CDT Appointment [facility] [address] [place] [address] [place] [address] Adrienne Marin MD [address] [place] [phone] 10/01/2024 1:30 PM CDT Appointment [facility] [address] [place] [address] [place] [address] Adrienne Marin MD [address] [place] [phone] 10/03/2024 1:30 PM CDT Appointment [facility] [address] [place] [address] [place] [address] Adrienne Marin MD [address] [place] [phone] 10/06/2024 1:30 PM CDT Appointment [facility] [address] [place] [address] Adrienne Marin MD [address] [place] [phone] 10/08/2024 1:30 PM CDT Appointment [facility] [address] [place], [place] [address] [address] Adrienne Marni MD [address] [place] [phone] 10/10/2024 1:30 PM CDT Appointment [facility] [address] [place], [place] [address] [address] Adrienne Marin MD [address] [place] [phone] 10/13/2024 1:30 PM CDT Appointment [facility] [place] [address] Adrienne Marin MD [address] [place] [phone] 10/15/2024 1:30 PM CDT Appointment [facility] [place] [address] Adrienne Marin MD [address] [place] [phone] 10/17/2024 1:30 PM CDT Appointment [facility] [place] [address] Adrienne Marin MD [address] [place] [phone] 10/20/2024 1:30 PM CDT Appointment [facility] [address] [place] [address] Adrienne Marin MD [address] [place] [phone] 10/22/2024 1:30 PM CDT Appointment [facility] [place] [address] Adrienne Marin MD [address] [place] [phone] 10/24/2024 1:30 PM CDT Appointment [facility] [address] [place], [place] [address] [address] Adrienne Marin MD [address] [place] [phone] 10/27/2024 1:30 PM CDT Appointment [facility] [address] [place], [place] [address] [address] Adrienne Marin MD [address] [place] [phone] 10/29/2024 1:30 PM CDT Appointment [facility] [place] [address] Adrienne Marin MD [address] [place] [phone] 10/31/2024 1:30 PM CDT Appointment [facility] [place] [address] Adrienne Marin MD [address] [place] [phone] 11/03/2024 1:30 PM CDT Appointment [facility] [place] [address] Adrienne Marin MD [address] [place] [phone] 11/05/2024 1:30 PM CDT Appointment [facility] [place] [address] Adrienne Marin MD [address] [place] [phone] 11/07/2024 1:30 PM CDT Appointment [facility] [place] [address] Adrienne Marin MD [address] [place] [phone] 11/07/2024 2:40 PM CDT Office Visit [facility] Diabetes and Endocrinology - [address] [phone] Hannah Garrison MD [address] [place] [phone] 11/10/2024 1:30 PM CDT Appointment [facility] [place] [address] Adrienne Marin MD [address] [place] [phone] 11/12/2024 1:30 PM CDT Appointment [facility] [place] [address] Adrienne Marin MD [address] [place] [phone] 11/14/2024 1:30 PM CDT Appointment [facility] [address] [place] [address] [place] [address] Adrienne Marin MD [address] [place] [phone] 11/19/2024 1:30 PM CDT Appointment [facility] [address] [place] [address] [place] [address] Adrienne Marin MD [address] [place] [phone] 11/21/2024 1:30 PM CDT Appointment [facility] [address] [place] [address] [place] [address] Adrienne Marin MD [address] [place] [phone] 11/24/2024 1:30 PM CDT Appointment [facility] [address] [place] [address] [place] [address] Adrienne Marin MD [address] [place] [phone] 11/26/2024 1:30 PM CDT Appointment [facility] [address] [place] [address] [place] [address] Adrienne Marin MD [address] [place] [phone] documented as of this encounter Goals Goal Patient Goal Type Associated Problems Recent Progress Patient-Stated? Author Patient will return to prior living situation and remain independent in ADLs upon discharge from hospital General Diana Hallman, perioperative manager - family caregiver with be involved in care transitions and discharge planning General No Nicole Cole, RN Safety Patient/family will have appropriate support at home upon discharge General Ayleen Goyal, SITE MONITOR documented as of this encounter Visit Diagnoses Not on filedocumented in this encounter Additional Health Concerns Assessment Noted Time PHQ-9 Depression Total Score: 0 11/19/19 22 3:11 PM CDT documented as of this encounter Care Teams Licensed Nuclear Operator Relationship Specialty Start Date End Date Adrienne Marin MD [address] [place] [address] PCP - General INTERNAL MEDICINE 05/09/24 Gladys Sanchez MD [address] [place] [address] [employer] Basic CARDIOVASCULAR DISEASE 05/28/19 documented as of this encounter
--- OUTSIDE RECORDS SUMMARY | 2024-08-23 13:42 | XMS_ITS | Encounter Summary ---
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 PCI Procedures PHASE II CARDIAC REHAB Adrienne Marin MD [address] [place] [address] Phone: tel: fax: [facility] [address] [place] [address] Phone: tel: fax: Referral ID Status Reason Start Date Expiration Date V isits Requested Visits Authorized New Request 08/14/2024 [id number] Encounter Details Date Type Department Care Team (Late st Contact Info) Description 08/22/2024 1:24 PM DROP FORGER Hospital Encounter [facility] [address] [place] [address] Adrienne Marin MD [address] [place] [phone] Arrived Social History Tobacco Use Types Packs/Day Years Used Date Smoking Tobacco: Never Passive Smoke Exposure: Never Smokeless Tobacco: Never Comments:non-smoker Alcohol Use Standard Drinks/Week Comments No 0 (1 standard drink = 0.6 oz pur e alcohol) [facility] Utilities Answer Date Recorded In the [...] place to sleep or slept in a half-way (including now)? No 05/13/2023 Housing Stability Vital Sign Answer Jayden e Recorded In the last 12 months, was t here a time when you were not able to pay the mortgage or rent on time? No 07/15/2024 In the past 12 months, how m any times have you moved where you were living? 0 07/15/2024 At any time in the past 12 m [facility], were you homeless or living in a half-way (including now)? No 07/15/2024 Sex and Gender Information Value Date Recorded Sex Assigned at Male 07/08/2024 7:30 AM DROP FORGER Legal Sex Male 8:56 PM CDT Gender Identity Male 07/08/2024 7:30 AM DROP FORGER Sexual Orientation Straight 07/08/2024 7: 30 AM DROP FORGER documented as of this encounter Functional Status [...] Assessment Author Status No 07/15/2024 10:54 PM DROP FORGER Moe Wilkins RN Active documented as of this encounter Mental Status * Because of a physical, mental, or emotional condition, do you have serious difficulty concentrating, remembering, or making decisions? Answer Entry Date Author Status No 07/15/2024 10:54 PM DROP FORGER Moe Wilkins RN Active documented in this encounter Plan of Treatment Upcoming Encounters Date Type Department Care Team (Late st Contact Info) Description 08/25/2024 1:30 PM DROP FORGER Appointment [facility] [place] [address] Adrienne Marin MD [address] [place] [phone] 08/27/2024 1:30 PM DROP FORGER [facility] [place] [address] Adrienne Marin MD [address] [place] [phone] 08/29/2024 1:30 PM DROP FORGER Appointment [facility] [place] [address] Adrienne Marin MD [address] [place] [phone] 09/01/2024 11:30 AM CDT Office Visit [facility], [facility] [address] [place], [place] [address] Anders Palacio NP [facility] [address] [place] [address] 09/01/2024 1:30 PM CDT Appointment [facility] [place] [address] Adrienne Marin MD [address] [place] [phone] 09/03/2024 1:30 PM CDT Appointment [facility] [address] [place] [address] Adrienne Marin MD [address] [place] [phone] 09/05/2024 1:30 PM CDT Appointment [facility] [address] [place] [address] Adrienne Marin MD [address] [place] [phone] 09/08/2024 1:30 PM CDT Appointment [facility] [address] [place] [address] Adrienne Marin MD [address] [place] [phone] 09/10/2024 1:30 PM CDT Appointment [facility] [place] [address] Adrienne Marin MD [address] [place] [phone] 09/12/2024 1:30 PM CDT Appointment [facility] [address] [place] [address] Adrienne Marin MD [address] [place] [phone] 09/15/2024 1:30 PM CDT Appointment [facility] [address] [place] [address] Adrienne Marin MD [address] [place] [phone] 09/17/2024 1:30 PM CDT Appointment [facility] [address] [place] [address] [place] [address] Adrienne Marin MD [address] [place] [phone] 09/19/2024 1:30 PM CDT Appointment [facility] [address] [place] [address] [place] [address] Adrienne Marin MD [address] [place] [phone] 09/22/2024 1:30 PM CDT Appointment [facility] [address] [place] [address] [place] [address] Adrienne Marin MD [address] [place] [phone] 09/24/2024 1:30 PM CDT Appointment [facility] [address] [place] [address] [place] [address] Adrienne Marin MD [address] [place] [phone] 09/26/2024 1:30 PM CDT Appointment [facility] [address] [place] [address] [place] [address] Adrienne Marin MD [address] [place] [phone] 09/29/2024 1:30 PM CDT Appointment [facility] [address] [place] [address] Adrienne Marin MD [address] [place] [phone] 10/01/2024 1:30 PM CDT Appointment [facility] [address] [place] [address] Adrienne Marin MD [address] [place] [phone] 10/03/2024 1:30 PM CDT Appointment [facility] [address] [place], [place] [address] [address] Adrienne Marin MD [address] [place] [phone] 10/06/2024 1:30 PM CDT Appointment [facility] [place] [address] Adrienne Marin MD [address] [place] [phone] 10/08/2024 1:30 PM CDT Appointment [facility] [place] [address] Adrienne Marin MD [address] [place] [phone] 10/10/2024 1:30 PM CDT Appointment [facility] [place] [address] Adrienne Marin MD [address] [place] [phone] 10/13/2024 1:30 PM CDT Appointment [facility] [address] [place] [address] Adrienne Marin MD [address] [place] [phone] 10/15/2024 1:30 PM CDT Appointment [facility] [address] [place], [place] [address] [address] Adrienne Marin MD [address] [place] [phone] 10/17/2024 1:30 PM CDT Appointment [facility] [address] [place], [place] [address] [address] Adrienne Marin MD [address] [place] [phone] 10/20/2024 1:30 PM CDT Appointment [facility] [address] [place], [place] [address] [address] Adrienne Marin MD [address] [place] [phone] 10/22/2024 1:30 PM CDT Appointment [facility] [place] [address] Adrienne Marin MD [address] [place] [phone] 10/24/2024 1:30 PM CDT Appointment [facility] [place] [address] Adrienne Marin MD [address] [place] [phone] 10/27/2024 1:30 PM CDT Appointment [facility] [address] [place] [address] Adrienne Marin MD [address] [place] [phone] 10/29/2024 1:30 PM CDT Appointment [facility] [address] [place] [address] Adrienne Marin MD [address] [place] [phone] 10/31/2024 1:30 PM CDT Appointment [facility] [place] [address] Adrienne Marin MD [address] [place] [phone] 11/03/2024 1:30 PM CDT Appointment [facility] [place] [address] Adrienne Marin MD [address] [place] [phone] 11/05/2024 1:30 PM CDT Appointment [facility] [place] [address] Adrienne Marin MD [address] [place] [phone] 11/07/2024 1:30 PM CDT Appointment [facility] [place] [address] Adrienne Marin MD [address] [place] [phone] 11/07/2024 2:40 PM CDT Office Visit [facility] Medical Group Diabetes and Endocrinology - Issue [address] [phone] Hannah Garrison MD [address] [place] [address] 11/10/2024 1:30 PM CDT Appointment [facility] [address] [place] [address] Adrienne Marin MD [address] [place] [phone] 11/12/2024 1:30 PM CDT Appointment [facility] [address] [place] [address] Adrienne Marin MD [address] [place] [phone] 11/14/2024 1:30 PM CDT Appointment [facility] [address] [place] [address] Adrienne Marin MD [address] [place] [phone] 11/19/2024 1:30 PM CDT Appointment [facility] [address] [place] [address] Adrienne Marin MD [address] [place] [phone] 11/21/2024 1:30 PM CDT Appointment [facility] [address] [place] [address] Adrienne Marin MD [address] [place] [phone] 11/24/2024 1:30 PM CDT Appointment [facility] [address] [place] [address] [address] [place] [address] Adrienne Marin MD [address] [place] [phone] 11/26/2024 1:30 PM CDT Appointment [facility] [address] [place] [address] [address] [place] [address] Adrienne Marin MD [address] [place] [phone] documented as of this encounter Goals [...] home upon discharge General No Ayleen Garcia, STIFF LEG DERRICK OPERATOR documented as of this encounter Visit Diagnoses Not on filedocumented in this encounter Additional Health Concerns Assessment Noted Time PHQ-9 Depression Total Score: 0 11/19/19 22 3:11 PM CDT documented as of this encounter Care Teams Medical Technologist Generalist Relationship Specialty Start Date End Date Adrienne Marin MD [address] [place] [phone] PCP - General INTERNAL MEDICINE 05/09/24 Gladys Sanchez MD [address] [place] [id number] Issue Executive Director [employer] CARDIOVASCULAR DISEASE 05/28/19 documented as of this encounter
[2024-08-23 13:46] LABS: Basophils Absolute Auto 0.04 K/mm3 (0.00-0.10); Basophils Percent Auto 0.4 % (0.0-1.0); Eosinophils Absolute Auto 0.19 K/mm3 (0.02-0.50); Hematocrit 30.4 % (37.0-46.0); Hemoglobin 9.5 g/dL (12.4-15.3); Immature Granulocyte Absolute 0.05 K/mm3 (0.00-0.00); Immature Granulocyte Percent A 0.5 % (0.0-0.0); Lymphocytes Absolute Auto 0.38 K/mm3 (1.10-4.50); Lymphocytes Percent Auto 4.1 % (18.0-42.0); Mean Corpuscular HGB Conc 31.3 g/dL (32-36); Mean Corpuscular Hemoglobin 29.1 pg (27.0-31.0); Mean Platelet Volume 12.5 fl (8.7-11.0); Monocytes Absolute Auto 0.75 K/mm3 (0.10-0.90); Monocytes Percent Auto 8.1 % (2.0-11.0); Neutrophils Absolute Auto 7.86 K/mm3 (1.70-7.20); Neutrophils Percent Auto 84.9 % (50.0-70.0); Platelet Count Result 122 K/mm3 (150-420); Red Blood Count 3.27 M/mm3 (4.70-6.10); Red Cell Distribution Width 14.2 % (11.6-14.4); White Blood Count 9.3 K/mm3 (4.8-10.8)
[2024-08-23 13:47] LABS: Base Excess ABG 2.2 mmol/L (0-2); HCO3 ABG 26.5 mmol/L (23-29); Oxygen Saturation ABG 84.3 % (95-97); Oxyhemoglobin 83.5 % (94-100); PCO2 ABG 40.1 mmHg (35-45); PO2 ABG 48.3 mmHg (75-85); pH ABG 7.44 (7.35-7.45)
[2024-08-23 13:49] LABS: Device NASAL CANNULA; Modified Allen's Test Pass; Site Drawn LEFT RADIAL
--- NOTE | 2024-08-23 14:01 | PC.NURSE ---
Covid culture sent to lab around 13:25
[2024-08-23 14:05] LABS: Lactic Acid Reflex 1.3 mmol/L (0.4-2.0)
[2024-08-23 14:12] LABS: Alanine Aminotransferase 25 U/L (16-63); Albumin Level 3.4 g/dL (3.4-5.0); Alkaline Phosphatase 106 U/L (46-116); Anion Gap 12 mmol/L (4-12); Aspartate Amino Transferase 18 U/L (15-37); Bilirubin,Total 0.5 mg/dL (0.00-1.00); Blood Urea Nitrogen 35 mg/dL (7-18); Carbon Dioxide 26 mmol/L (21-32); Chloride 102 mmol/L (98-108); Estimated CRCL calculation 35 ml/min; Estimated Glomerular Filt Rate 42; Glucose 321 mg/dL (70-99); NT Pro B Type Natriuretic Pept 3332 pg/mL (0-125); Osmolality Calculated 310 mOsm/kg (285-295); Sodium 140 mmol/L (136-145); Total Protein 6.9 g/dL (6.4-8.2)
[2024-08-23 14:13] LABS: Magnesium 1.5 mg/dL (1.8-2.4)
[2024-08-23] MEDS: FUROSEMIDE INJ 40 MG/4 ML VIAL IV PUSH ×2 (14:15→16:28)
[2024-08-23] MEDS: ACETAMINOPHEN 325 MG TABLET 650 MG PO (14:18)
[2024-08-23 14:24] LABS: Influenza A QL RT-PCR Positive (Negative); Influenza B QL RT-PCR Negative (Negative); RSV RNA, RT-PCR Negative (Negative); SARS-CoV-2 RNA PCR Negative (Negative)
--- NOTE | 2024-08-23 15:30 | ADMGEN ---
This patient, Craig Pool, was admitted to 2nd Floor Room 207-1. Patient/family oriented to hospital policies and general routines including ID bracelet, bed and alarms, visiting hours, pain management, procedures, bathroom and other care routines, personal items, smoking policy, room service/diet, and visiting hours. Information on how to activate the Rapid Response Team has been discussed. Patient/Family are encouraged to report perceived risks to care and to ask questions if they do not understand what they are told or what they should do.
[2024-08-23] MEDS: OSELTAMIVIR PHOSPHATE 75 MG CAPSULE PO (15:48)
[2024-08-23] MEDS: CEFEPIME 2 GM/NS 50 ML 2 GM/50 ML BAG IVPB (15:48)
[2024-08-23] MEDS: VANCOMYCIN 1,750 MG/NS 500 ML 1,750 MG/500 ML BAG 250 MG IVPB (16:27)
[2024-08-23 16:59] LABS: Glucose Point of Care 343 mg/dl (65-105)
[2024-08-23] MEDS: INSULIN HUMAN LISPRO (*BKC) 1,000 UNITS/10 ML VIAL SUB-Q (17:16)
[2024-08-23] MEDS: GABAPENTIN 300 MG CAPSULE PO (17:23)
[2024-08-23] MEDS: MAGNESIUM SULF 2 GM/WATER 50ML 2 GM/50 ML BAG IVPB (17:23)
[2024-08-23] MEDS: INSULIN ASPART MIX 30 UNITS SUB-Q (17:24)
[2024-08-23] MEDS: SALMET XINAFT/FLUTIC PROPIN 250 MCG/50 MCG INH CAP 1 PUFF INHALATION (17:44)
[2024-08-23] MEDS: IPRATROPIUM 0.5 MG/ALBUTEROL SULFATE 2.5 MG AMPUL.NEB 3 ML INHALATION ×2 (17:45→23:31)
[2024-08-23] MEDS: ATORVASTATIN 40 MG TABLET 80 MG PO (20:24)
[2024-08-23] MEDS: levETIRAcetam 500 MG TABLET 1500 MG PO (20:24)
[2024-08-23] MEDS: LORATADINE 10 MG TABLET PO (20:25)
[2024-08-23] MEDS: carvediloL 12.5 MG TABLET 25 MG PO (20:25)
[2024-08-23] MEDS: guaiFENesin 12 HR 600 MG TABCR 1200 MG PO (20:25)
[2024-08-23] MEDS: MELATONIN 5 MG TABLET 10 MG PO (20:25)
[2024-08-23 20:26] LABS: Glucose Point of Care 239 mg/dl (65-105)
[2024-08-23] MEDS: HEPARIN SODIUM 5,000 UNITS/ML VIAL 5000 UNITS SUB-Q (20:30)
[2024-08-23] MEDS: hydrALAZINE HCL 25 MG TABLET 100 MG PO (21:04)
[2024-08-24] VITALS (16 sets, daily range): BP systolic 122–147; BP diastolic 52–61; PULSE 52–64; RESP 16–20; TEMP 36.2–36.8; O2SAT 93–99
[2024-08-24 05:14] LABS: Hematocrit 24.7 % (37.0-46.0); Hemoglobin 7.8 g/dL (12.4-15.3); Mean Corpuscular HGB Conc 31.6 g/dL (32-36); Mean Corpuscular Hemoglobin 29.2 pg (27.0-31.0); Mean Corpuscular Volume 92.5 fL (78.0-102.0); Mean Platelet Volume 11.3 fl (8.7-11.0); Platelet Count Result 107 K/mm3 (150-420); Red Blood Count 2.67 M/mm3 (4.70-6.10); Red Cell Distribution Width 14.5 % (11.6-14.4); White Blood Count 6.2 K/mm3 (4.8-10.8)
[2024-08-24 05:35] LABS: Alanine Aminotransferase 22 U/L (16-63); Alkaline Phosphatase 93 U/L (46-116); Anion Gap 10 mmol/L (4-12); Aspartate Amino Transferase 17 U/L (15-37); Bilirubin,Total 0.5 mg/dL (0.00-1.00); Calcium 8.3 mg/dL (8.5-10.1); Carbon Dioxide 28 mmol/L (21-32); Chloride 105 mmol/L (98-108); Potassium 3.5 mmol/L (3.5-5.1); Sodium 143 mmol/L (136-145); Total Protein 5.8 g/dL (6.4-8.2)
[2024-08-24] MEDS: SALMET XINAFT/FLUTIC PROPIN 250 MCG/50 MCG INH CAP 1 PUFF INHALATION ×2 (05:44→17:44)
[2024-08-24 05:45] LABS: Albumin Level 2.6 g/dL (3.4-5.0); Blood Urea Nitrogen 37 mg/dL (7-18); Estimated CRCL calculation 35 ml/min; Estimated Glomerular Filt Rate 41; Glucose 104 mg/dL (70-99); Magnesium 2.1 mg/dL (1.8-2.4); Osmolality Calculated 304 mOsm/kg (285-295)
[2024-08-24] MEDS: OSELTAMIVIR PHOSPHATE 30 MG CAPSULE PO ×2 (05:46→17:43)
[2024-08-24] MEDS: IPRATROPIUM 0.5 MG/ALBUTEROL SULFATE 2.5 MG AMPUL.NEB 3 ML INHALATION ×3 (05:46→17:45)
[2024-08-24] MEDS: hydrALAZINE HCL 25 MG TABLET 100 MG PO ×2 (05:46→21:35)
[2024-08-24] MEDS: PANTOPRAZOLE 40 MG TABLET PO (05:46)
[2024-08-24 06:23] LABS: Add Urine Microscopic? YES; Appearance Urine Clear (Clear); Bilirubin Urine Negative (Negative); Blood Urine Negative (Negative); Color Urine Light Yellow (Yellow); Glucose Urine UA Negative (Negative); Ketones Urine Negative (Negative); Leukocyte Esterase Ur Negative LEU/UL (Negative); Nitrate Urine Negative (Negative); Protein Urine Trace (Negative); Urobilinogen Urine 0.2 mg/dL (0.2-1.0); pH Urine 5.5 (5.0-8.0)
[2024-08-24 06:27] LABS: RBC Urine None seen /hpf (0-2); Squamous Epithelial Cell Urine Occasional /hpf (Few); WBC Urine None seen /hpf (0-3)
[2024-08-24 06:28] LABS: Bacteria Urine Rare /hpf
[2024-08-24 07:51] LABS: Glucose Point of Care 117 mg/dl (65-105)
[2024-08-24 07:51] LABS: MRSA (PCR) NOT DETECTED (NOT DETECTE)
[2024-08-24] MEDS: SERTRALINE HCL 50 MG TABLET 100 MG PO (08:24)
[2024-08-24] MEDS: carvediloL 12.5 MG TABLET 25 MG PO ×2 (08:24→21:33)
[2024-08-24] MEDS: ISOSORBIDE MONONITRATE 30 MG TAB.ER.24H PO (08:24)
[2024-08-24] MEDS: levETIRAcetam 500 MG TABLET 1500 MG PO ×2 (08:24→21:34)
[2024-08-24] MEDS: FERROUS SULFATE 325 MG TABLET DR 650 MG BY MOUTH (08:24)
[2024-08-24] MEDS: CLOPIDOGREL BISULFATE 75 MG TABLET PO (08:25)
[2024-08-24] MEDS: guaiFENesin 12 HR 600 MG TABCR 1200 MG PO ×2 (08:25→21:34)
[2024-08-24] MEDS: ASPIRIN 81 MG ENTERIC TABLET PO (08:25)
[2024-08-24] MEDS: GABAPENTIN 300 MG CAPSULE PO ×3 (08:25→16:45)
[2024-08-24] MEDS: HEPARIN SODIUM 5,000 UNITS/ML VIAL 5000 UNITS SUB-Q (08:25)
[2024-08-24] MEDS: allopurinoL 100 MG TABLET PO (08:25)
[2024-08-24] MEDS: FUROSEMIDE INJ 40 MG/4 ML VIAL IV PUSH ×2 (08:26→16:46)
[2024-08-24] MEDS: INSULIN ASPART MIX 30 UNITS SUB-Q ×2 (08:27→16:48)
--- NOTE | 2024-08-24 08:45 | P.HP_ITS ---
H&P: HPI History of Present Illness Date/Time: 08/24/24 08:45 Chief Complaint: Fever/Cough/SOB Narrative: patient is a 73-year-old male who presented to the emergency department with complaints of fever, productive cough and worsening shortness a breath. patient states he was previously hospitalized for NSTEMI at which time he underwent a PCI with stent placement. Patient has a past medical history of h ypertension, diabetes mellitus, gout,seizure disorder, dyslipidemia, history of GI bleeding, anemia, DONNY, CAD status post stent,CHF with an EF of 40% and recent hospitalization for pneumonia on 07/13/2024. patient denied any chest pain, nausea, vomiting, chills continued to endorse fever, productive cough and generalized malaise. in the emergency department patient was found to have acute respiratory failure with hypoxia requiring 4 L supplemental oxygen to maintain 92% he was also found to be influenza positive. CXR showed bilateral pneumonia versus pulmonary edema he also had elevated BNP and troponin negative. Patient was admitted to the medical unit for further evaluation and treatment of acute respiratory failure with hypoxia secondary to influenza and CHF exacerbation. Review of Systems Review of Systems: All systems reviewed & are unremarkable except as noted in HPI and below PMFSH Past Medical History Medical History (Updated 08/24/24 @ 08:50 by Brinda Penn APRN) Gout Dyslipidemia CAD (coronary artery disease) Anemia Congestive heart failure Diabetes mellitus type 2, insulin dependent Surgical History Surgical History H/O heart artery stent Social History Social History Smoking status: Never smoker Second hand tobacco smoke exposure: No Alcohol intake: never Substance use: never Substance use type: does not use Do You Feel Safe in your Home?: Yes Lack of Transportation: No Lack of Food: Never True Current Housing: I Have Housing Concerned About Future Housing: No Difficulty Paying Gas/Electric Bills: No Difficulty Paying for Meds: No Currently Unemployed: No Education: Associate Degree Difficulty w/ Childcare or Family Care: No Spiritual care concerns: No Meds Home Medications and Allergies Home Medications ?Medication ?Instructions ?Recorded ?Confirmed ?Type Adult Multivitamin with Iron 1 tab-cap PO DAILY 06/09/22 08/23/24 History aspirin 81 mg tablet,delayed 81 mg PO DAILY 06/09/22 08/23/24 History release atorvastatin 80 mg BYMOUTH HS 06/09/22 08/23/24 History carvedilol 12.5 mg tablet (Coreg) 25 mg PO BID 06/09/22 08/23/24 History ferrous sulfate 325 mg (65 mg 650 mg PO DAILY 06/09/22 08/23/24 History iron) tablet (Feosol) fluticasone 250 mcg-salmeterol 50 1 inh inhalation Q12H 06/09/22 08/23/24 History mcg/dose blistr powdr for inhalation (Wixela Inhub) hydralazine 50 mg tablet 100 mg PO Q8H 06/09/22 08/23/24 History pantoprazole 40 mg tablet,delayed 40 mg PO DAILY@0630 06/09/22 08/23/24 History release (Protonix) sertraline 100 mg tablet (Zoloft) 100 mg PO DAILY 06/09/22 08/23/24 History acetaminophen 650 mg 1,300 mg PO Q8H PRN fever or pain 08/23/24 08/23/24 History tablet,extended release (8 Hour Pain Reliever) alfuzosin 10 mg tablet,extended 10 mg PO DAILY 08/23/24 08/23/24 History release 24 hr allopurinol 100 mg tablet 100 mg PO DAILY 08/23/24 08/23/24 History cetirizine 10 mg capsule (All Day 10 mg PO DAILY 08/23/24 08/23/24 History Allergy (cetirizine)) clopidogrel 75 mg tablet (Plavix) 75 mg PO DAILY 08/23/24 08/23/24 History ferrous sulfate 325 mg (65 mg 325 mg PO DAILY 08/23/24 08/23/24 History iron) tablet (Iron (ferrous sulfate)) fiber 1 tablet PO BID 08/23/24 08/23/24 History fluticasone 250 mcg-salmeterol 50 1 inh inhalation Q12H 08/23/24 08/23/24 History mcg/dose blistr powdr for inhalation (Advair Diskus) furosemide 80 mg tablet 80 mg PO DAILY 08/23/24 08/23/24 History gabapentin 300 mg capsule 300 mg PO TID 08/23/24 08/23/24 History insulin aspar prot-insulin aspart 30 unit subcut BID 08/23/24 08/23/24 History 100 unit/mL (70-30) subcutaneous pen isosorbide mononitrate 30 mg 30 mg PO DAILY 08/23/24 08/23/24 History tablet,extended release 24 hr levetiracetam 750 mg tablet 1,500 mg PO Q12H 08/23/24 08/23/24 History melatonin 10 mg capsule 10 mg PO HS 08/23/24 08/23/24 History Allergies Allergy/AdvReac Type Severity Reaction Status Date / Time cefaclor (From [facility]) Allergy Mild Rash Verified 08/23/24 12:56 Cephalosporins Allergy Unknown Verified 08/23/24 12:56 pioglitazone Allergy Unknown Verified 08/23/24 12:56 Vital Signs Vital Signs - 24 hr 08/23/24 12:46 08/23/24 12:54 08/23/24 13:01 Temperature 101.9 F H Pulse Rate 91 Respiratory Rate 20 24 H Blood Pressure 166/103 H 172/153 H Pulse Oximetry 90 90 87 L Oxygen Delivery Room Air Room Air Oxygen Flow Rate 08/23/24 13:15 08/23/24 13:30 08/23/24 13:31 Temperature Pulse Rate 86 86 Respiratory Rate 24 H 24 H Blood Pressure 174/135 H Pulse Oximetry 84 L 94 96 Oxygen Delivery Room Air Nasal Cannula Nasal Cannula Oxygen Flow Rate 2 2 08/23/24 13:35 08/23/24 13:45 08/23/24 14:05 Temperature Pulse Rate 88 93 Respiratory Rate 29 H 27 H Blood Pressure 195/94 H Pulse Oximetry 93 94 91 Oxygen Delivery Nasal Cannula Nasal Cannula Oxygen Flow Rate 2 4 08/23/24 14:07 08/23/24 14:15 08/23/24 14:18 Temperature Pulse Rate 87 82 76 Respiratory Rate 17 23 H 20 Blood Pressure 145/88 H Pulse Oximetry 97 93 Oxygen Delivery Nasal Cannula Nasal Cannula Oxygen Flow Rate 4 2 08/23/24 14:30 08/23/24 14:45 08/23/24 15:00 Temperature Pulse Rate 80 78 87 Respiratory Rate 26 H 26 H 25 H Blood Pressure Pulse Oximetry 97 96 Oxygen Delivery Nasal Cannula Nasal Cannula Oxygen Flow Rate 4 4 08/23/24 15:05 08/23/24 15:12 08/23/24 15:15 Temperature Pulse Rate 79 76 83 Respiratory Rate 26 H 20 23 H Blood Pressure 143/72 H Pulse Oximetry 96 93 97 Oxygen Delivery Nasal Cannula Nasal Cannula Nasal Cannula Oxygen Flow Rate 4 2 4 08/23/24 16:00 08/23/24 20:00 08/23/24 20:00 Temperature 98.8 F Pulse Rate 66 63 63 Respiratory Rate 20 17 Blood Pressure 143/54 H Pulse Oximetry 93 97 Oxygen Delivery Nasal Cannula Nasal Cannula Oxygen Flow Rate 2 2 08/23/24 20:00 08/23/24 20:25 08/23/24 23:27 Temperature 97.9 F Pulse Rate 63 63 63 Respiratory Rate 17 17 Blood Pressure 126/44 L Pulse Oximetry 97 97 Oxygen Delivery Nasal Cannula Oxygen Flow Rate 2 2 08/23/24 23:47 08/24/24 00:00 08/24/24 00:00 Temperature 97.6 F Pulse Rate 57 L 56 L 56 L Respiratory Rate 17 17 Blood Pressure 130/56 L Pulse Oximetry 99 98 Oxygen Delivery Nasal Cannula Oxygen Flow Rate 2 2 08/24/24 04:00 08/24/24 04:00 08/24/24 05:45 Temperature 97.8 F Pulse Rate 59 L 58 L 58 L Respiratory Rate 18 17 Blood Pressure 127/55 L Pulse Oximetry 97 95 Oxygen Delivery Nasal Cannula Oxygen Flow Rate 2 2 08/24/24 08:24 Temperature Pulse Rate 62 Respiratory Rate Blood Pressure Pulse Oximetry Oxygen Delivery Oxygen Flow Rate Exam Narrative: * GENERAL: Alert and oriented x 3. No acute distress. * EYES: EOMI. No scleral icterus. PERRLA. * HEENT: Moist mucous membranes. * LUNGS: scant crackles BLL to auscultation bilaterally. No accessory muscle use. Productive cough on 2L NC * CARDIOVASCULAR: Regular rate and rhythm. No murmur. No JVD. S1-S2 * ABDOMEN: Soft, non tenderness and non-distended. No palpable masses. * EXTREMITIES: No edema. Non-tender * SKIN: No rashes or lesions. Skin warm, dry. * NEUROLOGIC: No focal neurological deficits. CN II-XII grossly intact * PSYCHIATRIC: Appropriate mood and affect. Good judgement and insight. H&P: Results Labs Labs: Short CBC 08/23/24 08/24/24 Range/Units 13:30 05:09 WBC 9.3 6.2 (4.8-10.8) K/mm3 Hgb 9.5 L 7.8 L (12.4-15.3) g/dL Hct 30.4 L 24.7 L (37.0-46.0) % Plt Count 122 L 107 L (150-420) K/mm3 BMP 08/23/24 08/24/24 13:30 05:09 Sodium 140 143 Potassium 4.0 3.5 Chloride 102 105 Carbon Dioxide 26 28 BUN 35 H 37 H Creatinine 1.64 H 1.65 H Glucose 321 H 104 H Calcium 9.0 8.3 L Cardiac Enzymes 08/23/24 Range/Units 13:30 Troponin I 45.0 (0.00-60.4) ng/L Liver Function 08/23/24 08/24/24 Range/Units 13:30 05:09 Total Bilirubin 0.5 0.5 (0.00-1.00) mg/dL AST 18 17 (15-37) U/L ALT 25 22 (16-63) U/L Alkaline Phosphatase 106 93 (46-116) U/L Albumin 3.4 2.6 L (3.4-5.0) g/dL Urine 08/23/24 Range/Units 06:20 Urine Color Light yellow (Yellow) Urine Appearance Clear (Clear) Urine pH 5.5 (5.0-8.0) Ur Specific Royal 1.010 (1.010-1.020) Urine Protein Trace H (Negative) Urine Glucose (UA) Negative (Negative) Imaging Chest x-ray: Radiologist's impression: XR chest 1V portable Ordering provider: Duane Jesus MD History: 73 years Male with . SOB, cough, Fever, URI symptoms w/ AMS . Comparison: July 15, 2024 FINDINGS: MEDIASTINUM: The cardiac silhouette is slightly enlarged. Congestive chely. LUNGS: No effusions or pneumothorax. Bilateral perihilar and lower lobe opacification suggestive of pneumonia. Interstitial changes are seen which may indicate underlying edema. Clinical correlation advised. OTHER: No free air under the diaphragm. IMPRESSION: Bilateral pneumonia. Underlying pulmonary edema cannot be excluded. Clinical correlation advised. Assessment and Plan Assessment and plan (1) Respiratory failure with hypoxia: Qualifiers: Chronicity: acute Qualified Code(s): J96.01 - Acute respiratory failure with hypoxia Code(s): J96.91 - Respiratory failure, unspecified with hypoxia Status: Acute Assessment and Plan: Patient presented to the ED with hypoxia requiring 4L N[place] supplemental oxygen to maintain 92%, patient with recent HX of NSTEMI with PCI and stent placement. Patient tested positive for influenza and CXR showing possible bilateral PNA vs pulmonary edema * Wean oxygen to maintain 92% does not use oxygen at home * Mucolytics * Incentive spirometer * DuoNebs * IV Lasix * CXR Bilateral PNA vs pulmonary edema * Initially placed patient on cefepime and vancomycin for HAP patient with recent hospitalization MRSA negative vancomycin D/C * Trop negative * BNP 3332 (2) Pneumonia and influenza: Code(s): J11.00 - Influenza due to unidentified influenza virus with unspecified type of pneumonia Status: Acute Assessment and Plan: * Treating for HAP recent hospitalization and influenza positive * Bronchodilators. * Chest x-ray: bilateral PNA vs pulmonary edema * incentive spirometry while awake. * antibiotic therapy Cefepime/Vanc * MRSA negative D/C vanc * supplemental oxygen therapy to maintain oxygen 92% * Tamiflu (3) CHF exacerbation: Qualifiers: Heart failure type: systolic Qualified Code(s): I50.23 - Acute on chronic systolic (congestive) heart failure Code(s): I50.9 - Heart failure, unspecified Status: Acute Assessment and Plan: * BNP 3336 * IV Lasix b.i.d. * monitor renal function during diuresis * previous echocardiogram results or if applicable * EK SR BBB * chest x-ray: PNA vs pulmonary edema * resumed coreg, Imdur , ASA * Daily weight. (4) CAD (coronary artery disease): Code(s): I25.10 - Atherosclerotic heart disease of [place] coronary artery without angina pectoris Status: Acute Assessment and Plan: Patient with recent PCI and stent placement 06/2024 * resumed ASA, Plavix, Coreg, Imdur, and statin (5) Diabetes mellitus type 2, insulin dependent: Code(s): E11.9 - Type 2 diabetes mellitus without complications; Z79.4 - detention (current) use of insulin Status: Acute Assessment and Plan: * Accu-Cheks a.c. HS * sliding scale insulin * hold oral diabetic medications * Diabetic diet * Optimize Carlos inhibitors and statins. * Watch for hypoglycemia/hypoglycemic protocol ordered (6) Anemia: Code(s): D64.9 - Anemia, unspecified Status: Acute Assessment and Plan: Acute on Chronic HX of CKD and iron deficiency * HGB 9.5>7.8 * baseline 9.0 * resumed Iron supplement * No evidence of GIB at this time * will monitor Hgb * Transfuse if Hgb <7.0 * Will continue with Plavix and ASA due to recent stent (7) CKD (chronic kidney disease) stage 3, GFR 30-59 ml/min: Qualifiers: Chronic kidney disease stage 3 subtype: stage 3b (GFR 30-44) Qualified Code(s): N18.32 - Chronic kidney disease, stage 3b Code(s): N18.30 - Chronic kidney disease, stage 3 unspecified Status: Acute Assessment and Plan: * at baseline previous 07/06 1.93 * Gentle IV hydration. * Avoid nephrotoxic drugs. * Monitor antihypertensive drug therapy. * Avoid NSAIDs. * Routine CMP monitoring GFR. * Monitor electrolytes especially potassium. * Antibiotic doses depending on creatinine clearance. (8) DONNY (obstructive sleep apnea): Code(s): G47.33 - Obstructive sleep apnea (adult) (pediatric) Status: Acute Assessment and Plan: * previously have CPAP but does not currently use one (9) Weakness: Code(s): R53.1 - Weakness Status: Acute Assessment and Plan: * PT/OT evaluation * Secondary to Acute infection Plan Code status: Full code per patient DVT prophylaxis: SCD's Stress ulcer prophylaxis: Protonix 40 daily PT/OT notes: PT/OT for evaluation Disposition: Patient admitted for acute respiratory failure with hypoxia secondary to pneumonia, influenza, CHF exacerbation. Will continue with current treatment plan and wean oxygen as tolerated. PT/OT evaluation for further discharge planning Quality VTE Prophylaxis VTE prophylaxis: mechanical ordered -Patient's previous records reviewed on admission -ER notes reviewed in detail on admission -discussed all findings and current treatment plan with patient/Family/POA -Consultations reviewed for recommendations -Patient's disposition for safe discharge discussed with patient case coordinator Dictation performed by [employer] direct speech recognition software, therefore retanned leather roller variants and typographical errors may occur. Hospitalist MIPS Advance Care Plan I have confirmed that the patient's Advanced Care Plan is present, code status is documented, or surrogate decision maker is listed in patient medical record.: Yes Medication Reconciliation I have utilized all available resources to obtain, update and review the patients current medications (includes all prescriptions, OTC, herbals, cannabis, and nutritional supplements).: Yes The patient is not eligible for med reconciliation; the patient is in a emergent medical situation where delaying treatment would jeopardize the patients health.: No
[2024-08-24 11:40] LABS: Glucose Point of Care 128 mg/dl (65-105)
--- NOTE | 2024-08-24 13:58 | PC.NURSE ---
Pts NC O2 being titrated per order. Pt noted to have no SOB w/ activity, pt wanting to go home tomorrow. Noted SPO2 at 96% on RA after up walking to [place], no SOB noted. INTERACTIVE MULTIMEDIA DESIGNER Christy notified of BP 116/51 and will hold Apresoline med at this time and recheck before giving again at HS.
--- NOTE | 2024-08-24 14:57 | PC.NURSE ---
1434 patient status changed to in patient.
[2024-08-24 16:30] LABS: Glucose Point of Care 151 mg/dl (65-105)
[2024-08-24] MEDS: MELATONIN 5 MG TABLET 10 MG PO (21:34)
[2024-08-24] MEDS: ATORVASTATIN 40 MG TABLET 80 MG PO (21:34)
[2024-08-24] MEDS: LORATADINE 10 MG TABLET PO (21:35)
[2024-08-24 22:23] LABS: Glucose Point of Care 128 mg/dl (65-105)
[2024-08-25] VITALS (9 sets, daily range): BP systolic 94–156; BP diastolic 38–58; PULSE 52–68; RESP 16–18; TEMP 36.2–36.6; O2SAT 93–98
[2024-08-25] MEDS: IPRATROPIUM 0.5 MG/ALBUTEROL SULFATE 2.5 MG AMPUL.NEB 3 ML INHALATION ×3 (00:48→13:09)
[2024-08-25] MEDS: PANTOPRAZOLE 40 MG TABLET PO (06:34)
[2024-08-25] MEDS: hydrALAZINE HCL 25 MG TABLET 100 MG PO (06:34)
[2024-08-25] MEDS: OSELTAMIVIR PHOSPHATE 30 MG CAPSULE PO (06:35)
[2024-08-25] MEDS: SALMET XINAFT/FLUTIC PROPIN 250 MCG/50 MCG INH CAP 1 PUFF INHALATION (06:35)
[2024-08-25 08:14] LABS: Glucose Point of Care 103 mg/dl (65-105)
[2024-08-25 08:24] LABS: Hematocrit 27.1 % (37.0-46.0); Hemoglobin 8.6 g/dL (12.4-15.3); Mean Corpuscular HGB Conc 31.7 g/dL (32-36); Mean Corpuscular Hemoglobin 29.1 pg (27.0-31.0); Mean Corpuscular Volume 91.6 fL (78.0-102.0); Mean Platelet Volume 11.1 fl (8.7-11.0); Platelet Count Result 130 K/mm3 (150-420); Red Blood Count 2.96 M/mm3 (4.70-6.10); Red Cell Distribution Width 14.1 % (11.6-14.4); White Blood Count 4.8 K/mm3 (4.8-10.8)
[2024-08-25 08:54] LABS: Alanine Aminotransferase 33 U/L (16-63); Albumin Level 2.6 g/dL (3.4-5.0); Alkaline Phosphatase 91 U/L (46-116); Anion Gap 10 mmol/L (4-12); Aspartate Amino Transferase 25 U/L (15-37); Bilirubin,Total 0.3 mg/dL (0.00-1.00); Blood Urea Nitrogen 38 mg/dL (7-18); Calcium 8.8 mg/dL (8.5-10.1); Carbon Dioxide 28 mmol/L (21-32); Chloride 105 mmol/L (98-108); Estimated CRCL calculation 37 ml/min; Estimated Glomerular Filt Rate 45; Glucose 111 mg/dL (70-99); Osmolality Calculated 306 mOsm/kg (285-295); Potassium 3.3 mmol/L (3.5-5.1); Sodium 143 mmol/L (136-145); Total Protein 6.2 g/dL (6.4-8.2)
[2024-08-25] MEDS: levETIRAcetam 500 MG TABLET 1500 MG PO (09:48)
[2024-08-25] MEDS: ISOSORBIDE MONONITRATE 30 MG TAB.ER.24H PO (09:48)
[2024-08-25] MEDS: guaiFENesin 12 HR 600 MG TABCR 1200 MG PO (09:49)
[2024-08-25] MEDS: ASPIRIN 81 MG ENTERIC TABLET PO (09:49)
[2024-08-25] MEDS: FERROUS SULFATE 325 MG TABLET DR 650 MG BY MOUTH (09:49)
[2024-08-25] MEDS: allopurinoL 100 MG TABLET PO (09:49)
[2024-08-25] MEDS: carvediloL 12.5 MG TABLET 25 MG PO (09:51)
[2024-08-25] MEDS: GABAPENTIN 300 MG CAPSULE PO (09:51)
[2024-08-25] MEDS: SERTRALINE HCL 50 MG TABLET 100 MG PO (09:51)
[2024-08-25] MEDS: FUROSEMIDE INJ 40 MG/4 ML VIAL IV PUSH (09:52)
[2024-08-25] MEDS: CLOPIDOGREL BISULFATE 75 MG TABLET PO (09:52)
[2024-08-25] MEDS: INSULIN ASPART MIX 30 UNITS SUB-Q (09:52)
[2024-08-25 11:55] LABS: Glucose Point of Care 213 mg/dl (65-105)
[2024-08-25] MEDS: INSULIN HUMAN LISPRO (*BKC) 1,000 UNITS/10 ML VIAL SUB-Q (11:56)
--- NOTE | 2024-08-25 12:04 | P.DS_ITS ---
DS: Admitting Diagnosis Discharge Date 08/25/2024 Admitting Diagnosis acute respiratory failure with hypoxia secondary to influenza and CHF exacerbation DS: Discharge Diagnosis Discharge Diagnosis (1) Respiratory failure with hypoxia: Qualifiers: Chronicity: acute Qualified Code(s): J96.01 - Acute respiratory failure with hypoxia Code(s): J96.91 - Respiratory failure, unspecified with hypoxia Status: Acute Assessment and Plan: * resume Lasix and complete Tamiflu therapy (2) Pneumonia and influenza: Code(s): J11.00 - Influenza due to unidentified influenza virus with unspecified type of pneumonia Status: Acute Assessment and Plan: * discontinued antibiotic therapy did appear to be bacterial underlying viral infection with CHF exacerbation (3) CHF exacerbation: Qualifiers: Heart failure type: systolic Qualified Code(s): I50.23 - Acute on chronic systolic (congestive) heart failure Code(s): I50.9 - Heart failure, unspecified Status: Acute Assessment and Plan: * Resumed daily lasix * resumed coreg, Imdur , ASA * Daily weight. (4) CAD (coronary artery disease): Code(s): I25.10 - Atherosclerotic heart disease of [place] coronary artery without angina pectoris Status: Acute Assessment and Plan: Patient with recent PCI and stent placement 06/2024 * resumed ASA, Plavix, Coreg, Imdur, and statin (5) Diabetes mellitus type 2, insulin dependent: Code(s): E11.9 - Type 2 diabetes mellitus without complications; Z79.4 - retirement (current) use of insulin Status: Acute Assessment and Plan: * Resume home medications (6) Anemia: Code(s): D64.9 - Anemia, unspecified Status: Acute Assessment and Plan: Acute on Chronic HX of CKD and iron deficiency * continue Ferrous Sulfate * Will continue with Plavix and ASA due to recent stent (7) CKD (chronic kidney disease) stage 3, GFR 30-59 ml/min: Qualifiers: Chronic kidney disease stage 3 subtype: stage 3b (GFR 30-44) Qualified Code(s): N18.32 - Chronic kidney disease, stage 3b Code(s): N18.30 - Chronic kidney disease, stage 3 unspecified Status: Acute Assessment and Plan: * follow-up with nephrology Outpatient (8) DONNY (obstructive sleep apnea): Code(s): G47.33 - Obstructive sleep apnea (adult) (pediatric) Status: Acute Assessment and Plan: * previously have CPAP but does not currently use one (9) Weakness: Code(s): R53.1 - Weakness Status: Acute Assessment and Plan: * PT/OT evaluation * Secondary to Acute infection Plan Disposition: Discharged to home DS: Summary Hospital Course Reason for hospitalization: acute respiratory failure with hypoxia secondary to influenza and CHF exacerbation Hospital Course: Patient was a 73-year-old male who presented to the emergency department with complaints of fever, productive cough and worsening shortness a breath. patient states he was previously hospitalized for NSTEMI at which time he underwent a PCI with stent placement. Patient has a past medical history of hypertension, diabetes mellitus, gout,seizure disorder, dyslipidemia, history of GI bleeding, anemia, DONNY, CAD status post stent,CHF with an EF of 40% and recent hospitalization for pneumonia on 07/13/2024. patient denied any chest pain, nausea, vomiting, chills continued to endorse fever, productive cough and generalized malaise. in the emergency department patient was found to have ac [place] respiratory failure with hypoxia requiring 4 L supplemental oxygen to maintain 92% he was also found to be influenza positive. CXR showed bilateral pneumonia versus pulmonary edema he also had elevated BNP and troponin negative. Patient was admitted to the medical unit for further evaluation and treatment of acute respiratory failure with hypoxia secondary to influenza and CHF exacerbation. Patient continued with nebulizer treatments, Tamiflu, IV Lasix b.i.d. with overall improvement was weaned off oxygen and remained at 96 or above% on room air. I did discontinue his IV antibiotic therapy including cefepime and vancomycin for possible HAP, MRSA negative did not appear to be bacterial pneumonia likely secondary to viral influenza and CHF exacerbation. Patient remained afebrile normal WBC. patient is seen and assessed on day of discharge in no acute distress denied any chest pain, nausea, vomiting, fever chills and reported shortness of breath and productive cough with overall improvement. Patient was discharged home with remaining Tamiflu prescription and resumed his oral 80 mg Lasix. Patient acknowledged and agreed with discharge plan was discharged home with . Status at Discharge Functional status at discharge: independent ambulation Overall status at discharge: patient is back to baseline Time Spent with Patient Time attestation: Total time spent providing and/or coordinating discharge services: Time spent: Greater than 30 minutes Exam Narrative: * GENERAL: Alert and oriented x 3. No acute distress. * EYES: EOMI. No scleral icterus. PERRLA. * HEENT: Moist mucous membranes. * LUNGS: clear to auscultation bilaterally. No accessory muscle use. * CARDIOVASCULAR: Regular rate and rhythm. No murmur. No JVD. S1-S2 * ABDOMEN: Soft, non tenderness and non-distended. No palpable masses. * EXTREMITIES: No edema. Non-tender * SKIN: No rashes or lesions. Skin warm, dry. * NEUROLOGIC: No focal neurological deficits. CN II-XII grossly intact * PSYCHIATRIC: Appropriate mood and affect. Good judgement and insight. DS: Data Data Completed and Pending Labs on day of discharge: Labs from last 24 hours 08/25/24 08/25/24 08/25/24 11:50 08:18 08:06 WBC 4.8 RBC 2.96 L Hgb 8.6 L Hct 27.1 L MCV 91.6 MCH 29.1 MCHC 31.7 L RDW 14.1 Plt Count 130 L MPV 11.1 H Sodium 143 Potassium 3.3 L Chloride 105 Carbon Dioxide 28 Anion Gap 10 BUN 38 H Creatinine 1.54 H Estim Creat Clear Calc 37 Estimated GFR 45 L Glucose 111 H POC Capillary Glucose 213 H 103 Calculated Osmolality 306 H Calcium 8.8 Total Bilirubin 0.3 AST 25 ALT 33 Alkaline Phosphatase 91 Total Protein 6.2 L Albumin 2.6 L 08/24/24 08/24/24 22:17 16:24 WBC RBC Hgb Hct MCV MCH MCHC RDW Plt Count MPV Sodium Potassium Chloride Carbon Dioxide Anion Gap BUN Creatinine Estim Creat Clear Calc Estimated GFR Glucose POC Capillary Glucose 128 H 151 H Calculated Osmolality Calcium Total Bilirubin AST ALT Alkaline Phosphatase Total Protein Albumin Preliminary micro results at discharge 08/23/24 13:20 Blood Culture - Preliminary Blood 08/23/24 13:30 Blood Culture - Preliminary Blood Imaging Radiologist's impression: XR chest 1V portable Ordering provider: Duane Jesus MD History: 73 years Male with . SOB, cough, Fever, URI symptoms w/ AMS . Comparison: July 15, 2024 FINDINGS: MEDIASTINUM: The cardiac silhouette is slightly enlarged. Congestive chely. LUNGS: No effusions or pneumothorax. Bilateral perihilar and lower lobe opacification suggestive of pneumonia. Interstitial changes are seen which may indicate underlying edema. Clinical correlation advised. OTHER: No free air under the diaphragm. IMPRESSION: Bilateral pneumonia. Underlying pulmonary edema cannot be excluded. Clinical correlation advised. Discharge Plan Discharge Attending physician on discharge: Grady Daly Consulting providers: Brinda Penn Discharging Clinician: Brinda Penn Anticipated Discharge Date/Time: 08/25/24 11:58 Patient Disposition: Home, Self-Care Activity: may shower and as tolerated Diet: heart healthy Discharge Instructions: Influenza * I have prescribed Tamiflu please complete indicated * continue with incentive spirometer * we did initially have you on antibiotic therapy but this did not appear to be a bacterial pneumonia this was secondary to viral influenza pulmonary edema * acetaminophen for aches pains fevers * encourage hydration but in moderation due to your congestive heart failure congestive heart failure * please resume Lasix 80 mg daily * 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 ? Keep track of any new symptoms or changes in your symptoms. ? Rest until you feel better. ? Be safe with medicines. Take your medicines exactly as prescribed. Call your doctor if you think you are having a problem with your medicine. ? Do not drive after taking a prescription pain medicine. ? Ensure to follow-up with primary care physician as indicated and provide updated medication list provided to you at discharge. When should you call for help? Call 911 anytime you think you may need emergency care. For example, call if: ? You passed out (lost consciousness). Call your doctor now or seek immediate medical care if: ? You have new symptoms like fever, difficulty breathing, Chest pain, vomiting, or rash. ? You have new or different pain. ? You are confused and are having trouble thinking clearly. ? Your symptoms are getting worse. Watch closely for changes in your health, and be sure to contact your doctor if: ? You do not get better as expected. Patient Instructions: Antibiotic Form, Guaifenesin (By mouth), Oseltamivir (By mouth), Heart Failure (DC), Influenza (DC), Low-Sodium Diet (DC) Patient Language: Kazakh Stand Alone Forms: General Discharge Information Follow-up/Referrals: Adrienne Marin MD [Primary Care Provider] - 2 weeks (Call to make appt.) Discharge Medications: New guaifenesin [Mucus Relief ER] 600 mg Tablet Extended Release 12hr 1,200 mg PO Q12HR Qty: 15 0RF Rx Instructions: OTC oseltamivir [Tamiflu] 30 mg Capsule 30 mg PO Q12H Qty: 7 0RF Continued atorvastatin 80 mg BYMOUTH HS fluticasone propion-salmeterol [Wixela Inhub] 250-50 mcg/dose Blister With Device 1 inh INHALATION Q12H carvedilol [Coreg] 12.5 mg Tablet 25 mg PO BID Rx Instructions: must administer with a meal/food aspirin 81 mg Tablet,Delayed Release (Dr/Ec) 81 mg PO DAILY pantoprazole [Protonix] 40 mg Tablet,Delayed Release (Dr/Ec) 40 mg PO DAILY@0630 ferrous sulfate [Feosol] 325 mg (65 mg iron) Tablet 650 mg PO DAILY Patient Comments: Mon-Sun-Sun hydralazine 50 mg Tablet 100 mg PO Q8H Rx Instructions: hold if sbp<120 sertraline [Zoloft] 100 mg Tablet 100 mg PO DAILY Adult Multivitamin with Iron 1 tab-cap PO DAILY allopurinol 100 mg tablet 100 mg PO DAILY alfuzosin 10 mg tablet extended release 24 hr 10 mg PO DAILY furosemide 80 mg tablet 80 mg PO DAILY insulin asp prt-insulin aspart 100 unit/mL (70-30) insulin pen 30 unit SUBCUT BID gabapentin 300 mg capsule 300 mg PO TID levetiracetam 750 mg tablet 1,500 mg PO Q12H fluticasone propion-salmeterol [Advair Diskus] 250-50 mcg/dose blister with device 1 inh inhalation Q12H All Day Allergy (cetirizine) 10 mg capsule 10 mg PO DAILY clopidogrel [Plavix] 75 mg tablet 75 mg PO DAILY isosorbide mononitrate 30 mg tablet extended release 24 hr 30 mg PO DAILY melatonin 10 mg capsule 10 mg PO HS fiber Tablet,Chewable 1 tablet PO BID acetaminophen [8 Hour Pain Reliever] 650 mg tablet extended release 1,300 mg PO Q8H PRN (Reason: fever or pain) ferrous sulfate [Iron (ferrous sulfate)] 325 mg (65 mg iron) tablet 325 mg PO DAILY Patient Comments: Take on Take 2 tabs on - Date of admission: 08/24/24 14:34 Primary Care Provider: Adrienne Marin Admitting Provider: Grady Daly Attending physician on admission: Grayd Daly Condition: Stable Quality VTE Prophylaxis VTE prophylaxis: mechanical ordered -Patient's previous records reviewed on admission -ER notes reviewed in detail on admission -discussed all findings and current treatment plan with patient/Family/POA -Consultations reviewed for recommendations -Patient's disposition for safe discharge discussed with welfare case worker Dictation performed by [employer] direct speech recognition software, therefore fire behavior analyst variants and typographical errors may occur. Hospitalist MIPS Heart Failure (Exclusion) Patient has history of Heart Transplant or Left Ventricular Assistive Device?: No IF YES, STOP HERE Heart Failure (Qualifier) Patient has current or prior documentation of LVEF less than or equal to 40%, or mod/servere depressed LVSF?: No IF NO, STOP HERE
--- NOTE | 2024-08-25 13:25 | PC.NURSE ---
Patient discharging home. IV sites to right hand and wrist discontinued, dressing applied to sites. All belongings gathered together and sent home with patient. All discharge instructions and education reviewed with patient and Fabiana. Both parties state understanding. Patient denies any questions at discharge. This nurse accompanied patient to front door via wheelchair by this nurse. left via private vehicle with .
--- NOTE | 2024-08-27 11:25 | PC.NURSE ---
Discharge call back completed, no questions regarding dc instructions, doing well at home.
== END 2024-08-25 13:25 | disposition home or self-care (01) | DRG 193 ==
LOC: CHSED 15:09 → CHS2ND 15:17
PROVIDERS: Nurse Practitioner Family; Admitting Provider Internal Medicine; Emergency Provider Internal Medicine Critical Care Medicine; PCP Internal Medicine; Visit Provider Internal Medicine
DX: J11.00 Influenza due to unidentified influenza virus with unspecified type of pneumonia (principal); I50.23 Acute on chronic systolic (congestive) heart failure; J96.01 Acute respiratory failure with hypoxia; Y95 Nosocomial condition; I25.10 Atherosclerotic heart disease of native coronary artery without angina pectoris; N18.32 Chronic kidney disease, stage 3b; E11.22 Type 2 diabetes mellitus with diabetic chronic kidney disease; D63.1 Anemia in chronic kidney disease; E78.5 Hyperlipidemia, unspecified; M10.9 Gout, unspecified; G47.33 Obstructive sleep apnea (adult) (pediatric); Z79.4 Long term (current) use of insulin
CPT/HCPCS: 36415; 36600; 70450; 71045; 80053; 81001; 82805; 82948; 83605; 83735; 83880; 84484; 85025; 85027; 87040; 87637; 87641; 93005; 94640; 96365; 96366; 96367; 96368; 96375; 97161; 97165; 99285; A9270; G0378; J0692; J1644; J1815; J1940; J3370; J3475

== ENCOUNTER 2024-10-25 19:40 | Emergency (ER) | payer MEDICARE, SELFPAY ==
[2024-10-25] VITALS (29 sets, daily range): BP systolic 151–219; BP diastolic 69–111; PULSE 83–97; RESP 19–36; TEMP 36.4–36.6; O2SAT 81–96
--- NOTE | ~2024-10-25 | XR_ITS ---
EXAMINATION: XR chest 1V portable Exam Date/Time: 10/25/2024 19:55 CDT HISTORY: shortness of breath Comparison: 08/23/2024. RESULT: Numerous transverse artifactual lines are grossly imaged limit evaluation. Lines, tubes, and devices: Soft tissue anchors in the right humeral head. Lungs and pleura: Patchy airspace disease bilaterally, most pronounced in the right upper and right midlung. Indistinct vessels. Minimal bilateral costophrenic angle blunting. Cardiomediastinal silhouette: Stable. Other: No acute osseous or upper abdominal finding. IMPRESSION: Bilateral airspace disease, worse in the right lung, may represent edema or multifocal infection or a combination of those entities. Possible trace bilateral pleural effusions. Reviewed, dictated and finalized at location K. IMPRESSION: Bilateral airspace disease, worse in the right lung, may represent edema or mul tifocal infection or a combination of those entities. Possible trace bilateral pleural effusions.
--- NOTE | ~2024-10-25 | CT_ITS ---
EXAMINATION: CT brain wo con DATE: 10/25/2024 21:27 INDICATION: TRANSIENT ALTERATION OF AWARENESS. . TECHNIQUE: Computed tomography (CT) of the head was performed without intravenous contrast. The mA wa s adjusted according to patient size. Iterative reconstruction technique was employed. The dose-lengt h product was 605.33 mGy-cm. COMPARISON: None. FINDINGS: No acute intracranial hemorrhage or extra-axial fluid collection. No hydrocephalus, mass, or herniation. No acute ischemic infarct. Unremarkable dural venous sinus attenuation. No acute osseous abnormality. Absent right frontal sinus. Mild ethmoid, sphenoid, and bilateral maxillary mucosal thickening. Bilat eral antral windows. The mastoid air cells are clear. Mild atrophy and chronic white matter change. Atherosclerotic intracranial calcification. Right tempo ral encephalomalacia. IMPRESSION: No acute intracranial process. Reviewed, dictated and finalized at location K.
[2024-10-25] MEDS: FUROSEMIDE INJ 40 MG/4 ML VIAL 60 MG IV PUSH (19:45)
--- NOTE | 2024-10-25 19:50 | ECG_ITS ---
Test Date: 2024-10-25 19:52:30 Measurements Intervals [place] Rate: 95 P: 70 MN: 168 QRS: -64 QRSD: 162 T: 37 QT: 432 QTc: 545 Interpretive Statements SINUS RHYTHM RIGHT BUNDLE BRANCH BLOCK [120+ ms QRS DURATION, UPRIGHT V1, 40+ ms S IN I/aVL/V4/V5/V6] LEFT ANTERIOR FASCICULAR BLOCK [QRS AXIS <= -45, QR IN I, RS IN II] Compared to ECG 08/23/2024 13:26:37 NO SIGNIFICANT CHANGES Electronically Signed On 10-28-2024 14:12:13 CDT by Maritza Barbour M.D.
--- NOTE | 2024-10-25 19:50 | ED.SOB ---
HPI - SOB/Dyspnea General Chief Complaint: Shortness of Breath/Dyspnea Stated Complaint: SOB Time Seen by Provider: 10/25/24 19:44 Source: patient, family and EMS Mode of arrival: EMS Limitations: no limitations History of Present Illness HPI Narrative: 74-year-old male with a history of hypertension, diabetes mellitus, goiter, seizure disorder, dyslipidemia, history of GI bleed, anemia, DONNY noncompliant with nocturnal CPAP, CAD status post stent in June of 2024, CHF with an EF of 40% with recurrent pneumonias in June, was brought in by EMS for -- worsening shortness of breath for the past 2 days which got worse today -- cough which is nonproductive -- patient has been very drowsy and difficult to arouse -- hypertension on presentation with a blood pressure of 219/111. The patient has not been able to take his medicines secondary to drowsiness. Patient denied any fever or chills. patient was admitted to this hospital on 08/25/2024 for respiratory failure secondary to CHF, pneumonia, influenza. No recent upper respiratory tract infection. MD elicited complaint: shortness of breath and cough Pertinent past history: congestive heart failure Onset (ago): day(s) ( Two days) Timing: constant Severity: severe Exacerbating factors: nothing Relieving factors: nothing Known history of: congestive heart failure Associated symptoms: denies other symptoms, cough and chest congestion Treatment prior to arrival: NIPPV Related Data Home oxygen amount: none Home Medications ?Medication ?Instructions ?Recorded ?Confirmed ?Last Taken ?Type Adult Multivitamin with Iron 1 tab-cap PO DAILY 06/09/22 08/23/24 08/22/24 History aspirin 81 mg tablet,delayed 81 mg PO DAILY 06/09/22 08/23/24 08/22/24 History release atorvastatin 80 mg BYMOUTH HS 06/09/22 08/23/24 08/22/24 History carvedilol 12.5 mg tablet (Coreg) 25 mg PO BID 06/09/22 08/23/24 08/22/24 History ferrous sulfate 325 mg (65 mg 650 mg PO DAILY 06/09/22 08/23/24 Unknown History iron) tablet (Feosol) fluticasone 250 mcg-salmeterol 50 1 inh inhalation Q12H 06/09/22 08/23/24 08/22/24 History mcg/dose blistr powdr for inhalation (Wixela Inhub) hydralazine 50 mg tablet 100 mg PO Q8H 06/09/22 08/23/24 08/22/24 History pantoprazole 40 mg tablet,delayed 40 mg PO DAILY@0630 06/09/22 08/23/24 08/22/24 History release (Protonix) sertraline 100 mg tablet (Zoloft) 100 mg PO DAILY 06/09/22 08/23/24 08/22/24 History acetaminophen 650 mg 1,300 mg PO Q8H PRN fever or pain 08/23/24 08/23/24 Unknown History tablet,extended release (8 Hour Pain Reliever) alfuzosin 10 mg tablet,extended 10 mg PO DAILY 08/23/24 08/23/24 08/22/24 History release 24 hr allopurinol 100 mg tablet 100 mg PO DAILY 08/23/24 08/23/24 08/22/24 History cetirizine 10 mg capsule (All Day 10 mg PO DAILY 08/23/24 08/23/24 08/22/24 History Allergy (cetirizine)) clopidogrel 75 mg tablet (Plavix) 75 mg PO DAILY 08/23/24 08/23/24 08/22/24 History ferrous sulfate 325 mg (65 mg 325 mg PO DAILY 08/23/24 08/23/24 08/21/24 History iron) tablet (Iron (ferrous sulfate)) fiber 1 tablet PO BID 08/23/24 08/23/24 Unknown History fluticasone 250 mcg-salmeterol 50 1 inh inhalation Q12H 08/23/24 08/23/24 08/22/24 History mcg/dose blistr powdr for inhalation (Advair Diskus) furosemide 80 mg tablet 80 mg PO DAILY 08/23/24 08/23/24 08/22/24 History gabapentin 300 mg capsule 300 mg PO TID 08/23/24 08/23/24 08/22/24 History insulin aspar prot-insulin aspart 30 unit subcut BID 08/23/24 08/23/24 08/22/24 History 100 unit/mL (70-30) subcutaneous pen isosorbide mononitrate 30 mg 30 mg PO DAILY 08/23/24 08/23/24 08/22/24 History tablet,extended release 24 hr levetiracetam 750 mg tablet 1,500 mg PO Q12H 08/23/24 08/23/24 08/22/24 History melatonin 10 mg capsule 10 mg PO HS 08/23/24 08/23/24 08/22/24 History Allergies Allergy/AdvReac Type Severity Reaction Status Date / Time cefaclor (From [facility]) Allergy Mild Rash Verified 08/23/24 12:56 Cephalosporins Allergy Unknown Verified 08/23/24 12:56 pioglitazone Allergy Unknown Verified 08/23/24 12:56 Review of Systems Constitutional: Constitutional: Reports as per HPI and Reports no additional constitutional complaints Eyes: Eyes: Reports as per HPI and Reports no additional eye complaints ENT: Reports system reviewed and no additional complaints, except as documented and Reports as per HPI Cardiovascular: Cardiovascular: Reports as per HPI and Reports no additional cardiovascular complaints Respiratory: Respiratory: Reports as per HPI, Reports no additional respiratory complaints, Reports chest congestion, Reports cough and Reports dyspnea Gastrointestinal: Gastrointestinal: Reports as per HPI and Reports no additional gastrointestinal complaints Genitourinary: Genitourinary: Reports no additional male genitourinary complaints and Reports as per HPI Musculoskeletal: Musculoskeletal: Reports no additional musculoskeletal complaints and Reports as per HPI Integumentary/Breasts: Skin/Breast: Reports system reviewed and no additional complaints, except as docu and Reports as per HPI Neurologic: Reports system reviewed and no additional complaints, except as documented and Reports as per HPI Psychiatric: Psychiatric: Reports no additional psychiatric complaints and Reports as per HPI Endocrine: Endocrine: Reports no additional endocrine complaints and Reports as per HPI Hematologic/Lymphatic: Hematologic/Lymphatic: Reports no additional hematologic/lymphatic complaints and Reports as per HPI Allergic/Immunologic: Allergic/Immunologic: Reports no additional allergic/immunologic complaints and Reports as per HPI FOR[facility]LY [facility] Past Medical History Medical History Gout Dyslipidemia CAD (coronary artery disease) Anemia Congestive heart failure Diabetes mellitus type 2, insulin dependent Surgical History Surgical History H/O heart artery stent Social History Social History Smoking status: Never smoker Second hand tobacco smoke exposure: No Alcohol intake: never Substance use: never Substance use type: does not use Do You Feel Safe in your Home?: Yes Lack of Transportation: No Lack of Food: Never True Current Housing: I Have Housing Concerned About Future Housing: No Difficulty Paying Gas/Electric Bills: No Difficulty Paying for Meds: No Currently Unemployed: No Education: Associate Degree Difficulty w/ Childcare or Family Care: No Spiritual care concerns: No Exam Narrative: blood pressure to 119/111 patient is on BiPAP, FiO2 100% with an oxygen saturation of 92%. Const: General: ill appearing Orientation/consciousness: patient oriented x3 Limitations: altered mental status ( patient is drowsy) HENMT: Head: normal to inspection Ears: external ears normal Face/Nose/Sinus: Normal external nose present Face and sinus: normal facial exam Throat: posterior oropharynx normal Eyes: Conjunctivae: conjunctivae normal Pupils: Equal, round and reactive pupils present EOM: EOMs intact bilaterally Direct Ophthalmoscopy: no photophobia Neck: Neck: normal visual inspection, no lymphadenopathy and no meningeal signs Chest: Chest palpation & inspection: normal inspection of the chest Resp: Effort & Inspection: labored, tachypneic and uses accessory muscles Other: Bibasilar rales skilled nursing up the chest Cardio: Rate: regular rate GI: GI Palp: Yes Soft to palpation Auscultation: normal bowel sounds Other: no tenderness/rigidity /rebound. : General: Yes no CVA tenderness Back/Spine/Pelvis: Back: no CVA tenderness Skin: General skin exam: normal color Rashes: no rashes Wounds: no wounds Neuro: General: patient oriented x3, moves all extremities, no meningeal signs, no focal motor deficits and CN's II-XI intact bilaterally Cranial nerves: Yes Nystagmus not present Extrem: General: normal to inspection and no clubbing, cyanosis or edema Psych: Mental Status: mental status grossly normal Affect: normal affect Course Course Emergency Course: Acute respiratory failure ABG on room air was noted to be 733/37.5/51/ 81%( patient was on 6 L nasal cannula mother the time of the ABG draw the cannula was misplaced from his nose.) CHF exacerbation proBNP of 5 148 bilateral pneumonia. chest x-ray revealed bilateral lung infiltrates which is worse on the right side. Patient has had recurrent pneumonias. Patient has been cultured and started on vancomycin, Zosyn and Zithromax. To rule out cryptogenic organizing pneumonia non-STEMI with a troponin of 344. EKG did not show any changes from prior EKGs. hypertensive emergency. patient started on IV nitroglycerin at 10 mics per minute, Lasix 60, hydralazine 10 and Imdur 60 p.o. The blood pressure dropped to systolic of 170 following which the nitroglycerin was discontinued. hyperglycemia acute on chronic renal failure with a BUN/creatinine of 30/1.8, K 3.4. Mag 1.7. patient has a baseline creatinine around 1.5. Patient received 40 of K p.o. Altered mental status/hypersomnolence-- CT head did not show any acute findings. lactic acidosis- Not a candidate for IV fluids elevated uric acid of 7.3 positive D-dimer- CTA not done secondary to renal failure Patient transitioned from BiPAP to 6 L nasal cannula. Patient is saturating 95% with a respiratory rate of 20. Blood pressure systolic is around 150. Vital Signs Vital signs: Vital Signs Temperature 36.6 C 10/25/24 19:40 Pulse Rate 97 10/25/24 19:40 Respiratory Rate 36 H 10/25/24 19:40 Blood Pressure 211/99 H 10/25/24 19:40 Pulse Oximetry 92 10/25/24 19:40 Oxygen Delivery EMS-CPAP 10/25/24 19:40 Temperature 36.4 C 10/25/24 21:29 Pulse Rate 84 10/25/24 22:15 Respiratory Rate 21 H 10/25/24 22:15 Blood Pressure 159/77 H 10/25/24 22:15 Pulse Oximetry 91 10/25/24 22:15 Oxygen Delivery BiPAP 10/25/24 22:15 Oxygen Flow Rate 6 10/25/24 20:46 MDM - SOB/Dyspnea MDM Narrative Medical decision making narrative: acute hypoxic respiratory failure secondary to bilateral pneumonia, CHF exacerbation non-STEMI altered mental status acute on chronic renal failure with electrolyte imbalance hyperglycemia Differential Diagnosis Differential diagnosis: Likely acute exacerbation of chronic obstructive airways disease and pulmonary embolism Medical Records Attestation: I reviewed the patient's medical records. Lab Data Attestation: I reviewed the patient's lab results. 10/25/24 19:50 10/25/24 19:51 Labs: Lab Results 10/25/24 10/25/24 10/25/24 Range/Units 19:50 19:51 21:14 WBC 15.5 H (4.8-10.8) K/mm3 RBC 4.09 L (4.70-6.10) M/mm3 Hgb 11.8 L (12.4-15.3) g/dL Hct 38.1 (37.0-46.0) % MCV 93.2 (78.0-102.0) fL MCH 28.9 (27.0-31.0) pg MCHC 31.0 L (32-36) g/dL RDW 15.1 H (11.6-14.4) % Plt Count 153 (150-420) K/mm3 MPV 12.5 H (8.7-11.0) fl Immature Gran % (Auto) 0.8 H (0.0-0.0) % Neut % (Auto) 90.1 H (50.0-70.0) % Lymph % (Auto) 2.0 L (18.0-42.0) % Douglas % (Auto) 6.6 (2.0-11.0) % Eos % (Auto) 0.0 L (1.0-6.0) % Baso % (Auto) 0.5 (0.0-1.0) % Lymph # (Auto) 0.31 L (1.10-4.50) K/mm3 Douglas # (Auto) 1.03 H (0.10-0.90) K/mm3 Eos # (Auto) 0.00 L (0.02-0.50) K/mm3 Baso # (Auto) 0.07 (0.00-0.10) K/mm3 Abs Immat Gran (auto) 0.12 H (0.00-0.00) K/mm3 Absolute Neuts (auto) 14.01 H (1.70-7.20) K/mm3 Absolute Nucleated RBC 0.00 (0.00-0.00) K/mm3 Nucleated RBC % 0.0 (0-0.0) % PT 11.3 (9.50-12.1) Seconds INR 1.0 APTT 26.9 (23.9-30.70) Sec D-Dimer 0.76 H* (0.19-0.50) mg/L Sodium 144 (136-145) mmol/L Potassium 3.4 L (3.5-5.1) mmol/L Chloride 106 (98-108) mmol/L Carbon Dioxide 23 (21-32) mmol/L Anion Gap 15 H (4-12) mmol/L BUN 30 H (7-18) mg/dL Creatinine 1.81 H (0.70-1.30) mg/dL Estim Creat Clear Calc Not Reportable Estimated GFR 37 L (59 - ) Glucose 436 H* (70-99) mg/dL Calculated Osmolality 323 H (285-295) mOsm/kg Lactic Acid 2.3 H (0.4-2.0) mmol/L Uric Acid 7.3 H (3.5-7.2) mg/dL Calcium 8.8 (8.5-10.1) mg/dL Magnesium 1.7 L (1.8-2.4) mg/dL Total Bilirubin 1.1 H (0.00-1.00) mg/dL AST 18 (15-37) U/L ALT 45 (16-63) U/L Alkaline Phosphatase 136 H (46-116) U/L Troponin I 344.4 H* (0.00-60.4) ng/L NT-Pro-B Natriuret Pep 5148 H (0-125) pg/mL Total Protein 7.0 (6.4-8.2) g/dL Albumin 3.5 (3.4-5.0) g/dL Lipase 8 L (16-77) U/L Urine Color Light yellow (Yellow) Urine Appearance Clear (Clear) Urine pH 5.5 (5.0-8.0) Ur Specific Garrett 1.020 (1.010-1.020) Urine Protein 3+ H (Negative) Urine Glucose (UA) 3+ H (Negative) Urine Ketones 1+ H (Negative) Ur Blood (Man) Negative (Negative) Urine Nitrate Negative (Negative) Urine Bilirubin Negative (Negative) Urine Urobilinogen 0.2 (0.2-1.0) mg/dL Leukocyte Esterase Rfl Negative (Negative) TORY/UL Amorphous Sediment Few H (None) Urine Mucus Few H /lpf Nasal MRSA (PCR) Influenza A (RT-PCR) Negative (Negative) Influenza B (RT-PCR) Negative (Negative) RSV (RT-PCR) Negative (Negative) SARS-CoV-2 RNA (RT-PCR) Negative (Negative) 10/25/24 Range/Units 22:20 WBC (4.8-10.8) K/mm3 RBC (4.70-6.10) M/mm3 Hgb (12.4-15.3) g/dL Hct (37.0-46.0) % MCV (78.0-102.0) fL MCH (27.0-31.0) pg MCHC (32-36) g/dL RDW (11.6-14.4) % Plt Count (150-420) K/mm3 MPV (8.7-11.0) fl Immature Gran % (Auto) (0.0-0.0) % Neut % (Auto) (50.0-70.0) % Lymph % (Auto) (18.0-42.0) % Douglas % (Auto) (2.0-11.0) % Eos % (Auto) (1.0-6.0) % Baso % (Auto) (0.0-1.0) % Lymph # (Auto) (1.10-4.50) K/mm3 Douglas # (Auto) (0.10-0.90) K/mm3 Eos # (Auto) (0.02-0.50) K/mm3 Baso # (Auto) (0.00-0.10) K/mm3 Abs Immat Gran (auto) (0.00-0.00) K/mm3 Absolute Neuts (auto) (1.70-7.20) K/mm3 Absolute Nucleated RBC (0.00-0.00) K/mm3 Nucleated RBC % (0-0.0) % PT (9.50-12.1) Seconds INR APTT (23.9-30.70) Sec D-Dimer (0.19-0.50) mg/L Sodium (136-145) mmol/L Potassium (3.5-5.1) mmol/L Chloride (98-108) mmol/L Carbon Dioxide (21-32) mmol/L Anion Gap (4-12) mmol/L BUN (7-18) mg/dL Creatinine (0.70-1.30) mg/dL Estim Creat Clear Calc Estimated GFR (59 - ) Glucose (70-99) mg/dL Calculated Osmolality (285-295) mOsm/kg Lactic Acid Pending (0.4-2.0) mmol/L Uric Acid (3.5-7.2) mg/dL Calcium (8.5-10.1) mg/dL Magnesium (1.8-2.4) mg/dL Total Bilirubin (0.00-1.00) mg/dL AST (15-37) U/L ALT (16-63) U/L Alkaline Phosphatase (46-116) U/L Troponin I (0.00-60.4) ng/L NT-Pro-B Natriuret Pep (0-125) pg/mL Total Protein (6.4-8.2) g/dL Albumin (3.4-5.0) g/dL Lipase (16-77) U/L Urine Color (Yellow) Urine Appearance (Clear) Urine pH (5.0-8.0) Ur Specific Garrett (1.010-1.020) Urine Protein (Negative) Urine Glucose (UA) (Negative) Urine Ketones (Negative) Ur Blood (Man) (Negative) Urine Nitrate (Negative) Urine Bilirubin (Negative) Urine Urobilinogen (0.2-1.0) mg/dL Leukocyte Esterase Rfl (Negative) TORY/UL Amorphous Sediment (None) Urine Mucus /lpf Nasal MRSA (PCR) Pending Influenza A (RT-PCR) (Negative) Influenza B (RT-PCR) (Negative) RSV (RT-PCR) (Negative) SARS-CoV-2 RNA (RT-PCR) (Negative) ABG Data ABG results: 10/25/24 20:56 Puncture Site Left radial ABG pH 7.33 L ABG pCO2 37.5 ABG pO2 51.3 L ABG HCO3 19.4 L ABG O2 Saturation 80.6 L ABG Base Excess -5.9 L Oxyhemoglobin 79.8 L O2 Delivery Device Room air O2 Liters/Min 0.0 ECG Data EKG #1: ECG completion date: 10/25/24 ECG completion time: 19:52 Interpretation: normal sinus rhythm. Left axis deviation. Right bundle-branch block pattern with left anterior hemiblock. Critical Care Time Critical Care Time Critical Care Time: Yes Total Critical Care Time: 60 Discharge Plan Discharge Clinical Impression: Non-STEMI (non-ST elevated myocardial infarction), Acute hypoxic respiratory failure CKD (chronic kidney disease) stage 3, GFR 30-59 ml/min Qualifiers: Chronic kidney disease stage 3 subtype: stage 3b (GFR 30-44) Qualified Code(s): N18.32 - Chronic kidney disease, stage 3b CHF exacerbation Qualifiers: Heart failure type: systolic Qualified Code(s): I50.23 - Acute on chronic systolic (congestive) heart failure Bilateral pneumonia Qualifiers: Pneumonia type: due to unspecified organism Lung location: unspecified part of lung Qualified Code(s): J18.9 - Pneumonia, unspecified organism Patient Disposition: Still a Patient Condition: Stable Additional Instructions: transfer patient to [facility] patient has been accepted by Dr. Ester Ramos Patient Language: Swazi Prescriptions: No Action atorvastatin 80 mg [facility] fluticasone propion-salmeterol [Wixela Inhub] 250-50 mcg/dose Blister With Device 1 inh INHALATION Q12H carvedilol [Coreg] 12.5 mg Tablet 25 mg PO BID Rx Instructions: must administer with a meal/food aspirin 81 mg Tablet,Delayed Release (Dr/Ec) 81 mg PO DAILY pantoprazole [Protonix] 40 mg Tablet,Delayed Release (Dr/Ec) 40 mg PO DAILY@0630 ferrous sulfate [Feosol] 325 mg (65 mg iron) Tablet 650 mg PO DAILY Patient Comments: Mon-Wed-Fri hydralazine 50 mg Tablet 100 mg PO Q8H Rx Instructions: hold if sbp<120 sertraline [Zoloft] 100 mg Tablet 100 mg PO DAILY Adult Multivitamin with Iron 1 tab-cap PO DAILY allopurinol 100 mg tablet 100 mg PO DAILY alfuzosin 10 mg tablet extended release 24 hr 10 mg PO DAILY furosemide 80 mg tablet 80 mg PO DAILY insulin asp prt-insulin aspart 100 unit/mL (70-30) insulin pen 30 unit SUBCUT BID gabapentin 300 mg capsule 300 mg PO TID levetiracetam 750 mg tablet 1,500 mg PO Q12H fluticasone propion-salmeterol [Advair Diskus] 250-50 mcg/dose blister with device 1 inh inhalation Q12H All Day Allergy (cetirizine) 10 mg capsule 10 mg PO DAILY clopidogrel [Plavix] 75 mg tablet 75 mg PO DAILY isosorbide mononitrate 30 mg tablet extended release 24 hr 30 mg PO DAILY melatonin 10 mg capsule 10 mg PO fiber Tablet,Chewable 1 tablet PO BID acetaminophen [8 Hour Pain Reliever] 650 mg tablet extended release 1,300 mg PO Q8H PRN (Reason: fever or pain) ferrous sulfate [Iron (ferrous sulfate)] 325 mg (65 mg iron) tablet 325 mg PO DAILY Patient Comments: Take on Take 2 tabs on guaifenesin [Mucus Relief ER] 600 mg Tablet Extended Release 12hr 1,200 mg PO Q12HR Qty: 15 0RF Rx Instructions: OTC oseltamivir [Tamiflu] 30 mg Capsule 30 mg PO Q12H Qty: 7 0RF Follow-up/Referrals: Adrienne Marin MD [Primary Care Provider] - Time of Disposition: 22:23
[2024-10-25] MEDS: ONDANSETRON INJ 4 MG/2 ML VIAL IV PUSH (19:54)
[2024-10-25] MEDS: MORPHINE SULFATE (*CRX) 2 MG/ML INJ IV PUSH (19:55)
[2024-10-25 20:02] LABS: Basophils Absolute Auto 0.07 K/mm3 (0.00-0.10); Basophils Percent Auto 0.5 % (0.0-1.0); Hematocrit 38.1 % (37.0-46.0); Hemoglobin 11.8 g/dL (12.4-15.3); Immature Granulocyte Absolute 0.12 K/mm3 (0.00-0.00); Immature Granulocyte Percent A 0.8 % (0.0-0.0); Lymphocytes Absolute Auto 0.31 K/mm3 (1.10-4.50); Mean Corpuscular Hemoglobin 28.9 pg (27.0-31.0); Mean Corpuscular Volume 93.2 fL (78.0-102.0); Mean Platelet Volume 12.5 fl (8.7-11.0); Monocytes Absolute Auto 1.03 K/mm3 (0.10-0.90); Monocytes Percent Auto 6.6 % (2.0-11.0); Neutrophils Absolute Auto 14.01 K/mm3 (1.70-7.20); Neutrophils Percent Auto 90.1 % (50.0-70.0); Platelet Count Result 153 K/mm3 (150-420); Red Blood Count 4.09 M/mm3 (4.70-6.10); Red Cell Distribution Width 15.1 % (11.6-14.4); White Blood Count 15.5 K/mm3 (4.8-10.8)
[2024-10-25] MEDS: NITROGLYCERIN/D5W 200 MCG/ML 50 MG/250 ML BTL IV CONT (20:06)
[2024-10-25 20:14] LABS: Lactic Acid Reflex 2.3 mmol/L (0.4-2.0)
--- OUTSIDE RECORDS SUMMARY | 2024-10-25 20:15 | XMS_ITS | Encounter Summary ---
Author Organization [facility] Address [facility] [place] [address] Care Team Providers Care Hassock Maker Name Role Phone Adrian Lee MD Primary Care Provider [phone] Gladys Sanchez MD Unavailable [phone] Adrienne Marin MD Primary Care Provider [phone] Encounter Details Date Type Department Care Team (Late st Contact Info) Description 07/25/2022 Abstract [facility] BUSINESS OFFICE [address] [place] [id number] Abstract, Doc Cikda Social History Tobacco Use [...] Sex Assigned at Male 07/08/2024 7:30 AM LEAD PHARMACY TECHNICIAN Legal Sex Male 8:56 PM CDT Gender Identity Male 07/08/2024 7:30 AM LEAD PHARMACY TECHNICIAN Sexual Orientation Straight 07/08/2024 7: 30 AM LEAD PHARMACY TECHNICIAN COVID-19 Exposure Response Date Recorded In the last 10 days, have yo u been in contact with someone who was confirmed or suspected to have Coronavirus/COVID-19? No / Unsure 07/28/2022 2:26 PM LEAD PHARMACY TECHNICIAN documented as of this encounter Functional Status * RETIRED Are you deaf or do you have serious difficulty hearing Answer Date of Assessment Author Status Yes 06/14/2022 7:00 PM LEAD PHARMACY TECHNICIAN Activ e * RETIRED Are you blind or do you have serious difficulty seeing, even when wearing glasses? Answer Date of Assessment Author Status No 06/14/2022 7:00 PM LEAD PHARMACY TECHNICIAN Activ e * Do you have serious difficulty walking or climbing stairs? Answer Date of Assessment Author Status No 06/14/2022 7:00 PM LEAD PHARMACY TECHNICIAN Cathy Giles RN Active * Do you have difficulty dressing or bathing? Answer Date of Assessment Author Status No 06/14/2022 7:00 PM LEAD PHARMACY TECHNICIAN Cathy Giles RN Active * Because of a physical, mental, or emotional condition, do you have difficulty doing errands alone such as visiting a doctor's office or shopping? Answer Date of Assessment Author Status No 06/14/2022 7:00 PM LEAD PHARMACY TECHNICIAN Cathy Giles RN Active documented as of this encounter Mental Status * Because of a physical, mental, or emotional condition, do you have serious difficulty concentrating, remembering, or making decisions? Answer Entry Date Author Status No 06/14/2022 7:00 PM LEAD PHARMACY TECHNICIAN Cathy Giles RN Active documented in this encounter Plan of Treatment Upcoming Encounters Date Type Department Care Team (Late st Contact Info) Description 10/27/2024 1:30 PM CDT Appointment [facility] [address] Adrienne Marin MD [address] [place] [phone] 10/29/2024 1:30 PM CDT Appointment [place] [address] Adrienne Marin MD [address] [place] [phone] 10/31/2024 1:30 PM CDT Appointment [facility] [place] [address] Adrienne Marin MD [address] [place] [phone] 11/03/2024 1:30 PM CDT Appointment [facility] [address] [place] [address] Adrienne Marin MD [address] [place] [phone] 11/05/2024 1:30 PM CDT Appointment [facility] [address] Adrienne Marin MD [address] [place] [phone] 11/07/2024 1:30 PM CDT Appointment [facility] [place] [address] Adrienne Marin MD [address] [place] [phone] 11/07/2024 2:40 PM CDT Office Visit [facility] Diabetes and Endocrinology - [address] [address] Hannah Garrison MD [address] [place] [address] 11/10/2024 1:30 PM CDT Appointment [facility] [place] [address] Adrienne Marin MD [address] [place] [phone] 11/12/2024 1:30 PM CDT Appointment [facility] [place] [address] Adrienne Marin MD [address] [place] [phone] 11/14/2024 1:30 PM CDT Appointment [facility] [place] [address] Adrienne Marin MD [address] [place] [phone] 11/19/2024 1:30 PM CDT Appointment [facility] [address] [place], [place] [address] [address] Adrienne Marin MD [address] [place] [phone] 11/21/2024 1:30 PM CDT Appointment [facility] [address] [place], [place] [address] [address] Adrienne Marin MD [address] [place] [phone] 11/24/2024 1:30 PM CDT Appointment [facility] [place] [address] Adrienne Marin MD [address] [place] [phone] 11/26/2024 1:30 PM CDT Appointment [facility] [address] Adrienne Marin MD [address] [place] [phone] 12/30/2024 11:30 AM CDT Office Visit [facility] THREE [facility], [address] [place] [address] Roc Fulton MD Three [facility]. [address] [place] [address] 02/03/2025 11:00 AM CDT Office Visit [facility] Multispecialty Care - [facility] 3 [facility], [address] [place] [address] Nathan Lechuga MD 3 [facility] [place] [address] documented as of this encounter Goals Goal [...] home upon discharge General No Ayleen Garcia, REGISTERED PUBLIC SURVEYOR documented as of this encounter Visit Diagnoses Not on filedocumented in this encounter Additional Health Concerns Infection Onset Date Last Indicated Resolved Time COVID-19 Rule Out 05/13/2023 05/13/2023 05/13/2023 4:14 PM LEAD PHARMACY TECHNICIAN COVID-19 Rule Out 05/13/2023 05/13/2023 05/14/2023 1:35 AM LEAD PHARMACY TECHNICIAN COVID-19 Rule Out 07/08/2023 07/08/2023 07/08/2023 5:34 PM LEAD PHARMACY TECHNICIAN COVID-19 Rule Out 07/07/2024 07/07/2024 07/07/2024 7:39 AM LEAD PHARMACY TECHNICIAN Assessment Noted Time PHQ-9 Depression Total Score: 0 11/19/19 3:11 PM CDT documented as of this encounter Care Teams Hassock Maker Relationship Specialty Start Date End Date Adrian Lee MD [address] [place] [address] PCP - General FAMILY PRACTICE 04/22/18 05/08/24 Adrienne Marin MD [address] [place] [address] PCP - General INTERNAL MEDICINE 05/09/24 Gladys Sanchez MD [address] [place] [address] [place] Bridge Clerk Specialist CARDIOVASCULAR DISEASE 05/28/19 documented as of this encounter
--- OUTSIDE RECORDS SUMMARY | 2024-10-25 20:15 | XMS_ITS | Encounter Summary ---
Author Organization [facility] Address [facility] [place] [address] Care Team Providers Care Seamark Advanced Operator Maintainer Name Role Phone Adrian Lee MD Primary Care Provider [phone] Gladys Sanchez MD Unavailable [phone] Adrienne Marin MD Primary Care Provider [phone] Encounter Details Date Type Department Care Team (Late st Contact Info) Description 06/20/2022 Hospital Follow-up Call [facility] Cardiac Rehab [address] [place] [address] Asia Weiner, RN Social History [...] Sex Assigned at Male 07/08/2024 7:30 AM CYCLE REPAIRER Legal Sex Male 8:56 PM CDT Gender Identity Male 07/08/2024 7:30 AM CYCLE REPAIRER Sexual Orientation Straight 07/08/2024 7: 30 AM CYCLE REPAIRER COVID-19 Exposure Response Date Recorded In the last 10 days, have yo u been in contact with someone who was confirmed or suspected to have Coronavirus/COVID-19? No / Unsure 06/14/2022 6:51 PM CYCLE REPAIRER documented as of this encounter Functional Status * RETIRED Are you deaf or do you have serious difficulty hearing Answer Date of Assessment Author Status Yes 06/14/2022 7:00 PM CYCLE REPAIRER Activ e * RETIRED Are you blind or do you have serious difficulty seeing, even when wearing glasses? Answer Date of Assessment Author Status No 06/14/2022 7:00 PM CYCLE REPAIRER Activ e * Do you have serious difficulty walking or climbing stairs? Answer Date of Assessment Author Status No 06/14/2022 7:00 PM CYCLE REPAIRER Cathy Giles RN Active * Do you have difficulty dressing or bathing? Answer Date of Assessment Author Status No 06/14/2022 7:00 PM CYCLE REPAIRER Cathy Giles RN Active * Because of a physical, mental, or emotional condition, do you have difficulty doing errands alone such as visiting a doctor's office or shopping? Answer Date of Assessment Author Status No 06/14/2022 7:00 PM CYCLE REPAIRER Cathy Giles RN Active documented as of this encounter Mental Status * Because of a physical, mental, or emotional condition, do you have serious difficulty concentrating, remembering, or making decisions? Answer Entry Date Author Status No 06/14/2022 7:00 PM CYCLE REPAIRER Cathy Giles RN Active documented in this encounter Plan of Treatment Upcoming Encounters Date Type Department Care Team (Late st Contact Info) Description 10/27/2024 1:30 PM CDT Appointment [facility] [place] [address] Adrienne Marin MD [address] [place] [phone] 10/29/2024 1:30 PM CDT Appointment [facility] [place] [address] Adrienne Marin MD [address] [place] [phone] 10/31/2024 1:30 PM CDT Appointment [facility] [address] [place] [address] Adrienne Marin MD [address] [place] [phone] 11/03/2024 1:30 PM CDT Appointment [facility] [address] [place] [address] Adrienne Marin MD [address] [place] [phone] 11/05/2024 1:30 PM CDT Appointment [facility] [address] [place] [address] Adrienne Marin MD [address] [place] [phone] 11/07/2024 1:30 PM CDT Appointment [facility] [place] [address] Adrienne Marin MD [address] [place] [phone] 11/07/2024 2:40 PM CDT Office Visit [facility] Group Diabetes and Endocrinology - [address] [address] Hannah Garrison MD [address] [place] [address] [place], [place] [phone] 11/10/2024 1:30 PM CDT Appointment [facility] [address] [place] [address] Adrienne Marin MD [address] [place] [phone] 11/12/2024 1:30 PM CDT Appointment [id number] [place] [address] Adrienne Marin MD [address] [place] [phone] 11/14/2024 1:30 PM CDT Appointment [id number] [place] [address] Adrienne Marin MD [address] [place] [phone] 11/19/2024 1:30 PM CDT Appointment [facility] [address] [place], [place] [address] [address] Adrienne Marin MD [address] [place] [phone] 11/21/2024 1:30 PM CDT Appointment [facility] [address] [place], [place] [address] [address] Adrienne Marin MD [address] [place] [phone] 11/24/2024 1:30 PM CDT Appointment [facility] [place] [address] Adrienne Marin MD [address] [place] [phone] 11/26/2024 1:30 PM CDT Appointment [facility] [place] [address] Adrienne Marin MD [address] [place] [phone] 12/30/2024 11:30 AM CDT Office Visit [facility] THREE [facility], [address] [place] [address] Roc Fulton MD Three [facility]. [address] [place] [address] 02/03/2025 11:00 AM CDT Office Visit [facility] Multispecialty Care - [facility] 3 [facility], [address] [place] [phone] Nathan Lechuga MD [address] [place] [address] documented as of this encounter Goals Goal Patient Goal Type Associated Problems Recent Progress Patient-Stated? Author Patient will return to prior living situation and remain independent in ADLs upon discharge from hospital General No Diana Todd, client insights consultant - family caregiver with be involved in care transitions and discharge planning General No Nicole Cole RN Safety Patient/family will have appropriate support at home upon discharge General No Ayleen Garcia, READING PROFESSOR documented as of this encounter Visit Diagnoses Not on filedocumented in this encounter Additional Health Concerns Infection Onset Date Last Indicated Resolved Time Influenza - Seasonal 05/23/2022 05/23/2022 023 12:34 AM CYCLE REPAIRER COVID-19 Rule Out 05/13/2023 05/13/2023 05/13/2023 4:14 PM CYCLE REPAIRER COVID-19 Rule Out 05/13/2023 05/13/2023 05/14/2023 1:35 AM CYCLE REPAIRER COVID-19 Rule Out 07/08/2023 07/08/2023 07/08/2023 5:34 PM CYCLE REPAIRER COVID-19 Rule Out 07/07/2024 07/07/2024 07/07/2024 7:39 AM CYCLE REPAIRER Assessment Noted Time PHQ-9 Depression Total Score: 0 11/19/19 22 3:11 PM CDT documented as of this encounter Care Teams Seamark Advanced Operator Maintainer Relationship Specialty Start Date End Date Adrian Lee MD [address] [place] [address] PCP - General FAMILY PRACTICE 04/22/18 05/08/24 Adrienne Marin MD [address] [place] [address] PCP - General INTERNAL MEDICINE 05/09/24 Gladys Sanchez MD [address] [place] [phone] Dante Mechanical Shovel Operator CARDIOVASCULAR DISEASE 05/28/19 documented as of this encounter
--- OUTSIDE RECORDS SUMMARY | 2024-10-25 20:15 | XMS_ITS | Encounter Summary ---
Author Organization [facility] Address [facility] [place] [address] Care Team Providers Care Boatwright Name Role Phone Gladys Sanchez MD Unavailable [phone] Adrienne Marin MD Primary Care Provider [phone] Encounter Details Date Type Department Care Team (Late st Contact Info) Description 10/13/2024 Fliptop Message Replication Medical [facility] Call Center [address] [place] [phone] Mychart, [facility] Provider levETIRAcetam (KEPPRA) 750 MG tablet Social History Tobacco Use Types Packs/Day Years Used Date Smoking Tobacco: Never Passive Smoke Exposure: Never Smokeless Tobacco: Never Comments:non-smoker Alcohol Use Standard Drinks/Week Comments No 0 (1 standard drink = 0.6 oz pur e alcohol) [facility] Utilities Answer Date Recorded In the past 12 months has [facility] [employer], [employer], oil, or water [employer] threatened to shut off services in your [...] place to sleep or slept in a jail (including now)? No 05/13/2023 Housing Stability Vital Sign Answer Jayden e Recorded In the last 12 months, was t here a time when you were not able to pay the mortgage or rent on time? No 07/15/2024 In the past 12 months, how m any times have you moved where you were living? 0 07/15/2024 At any time in the past 12 m [facility], were you homeless or living in a jail (including now)? No 07/15/2024 Sex and Gender Information Value Date Recorded Sex Assigned at Male 07/08/2024 7:30 AM MATERIALS MANAGER Legal Sex Male 8:56 PM CDT Gender Identity Male 07/08/2024 7:30 AM MATERIALS MANAGER Sexual Orientation Straight 07/08/2024 7: 30 AM MATERIALS MANAGER documented as of this encounter Functional Status [...] 10/27/2024 1:30 PM CDT Appointment Cardiopulmonary Rehab [facility] [place] [address] Adrienne Marin MD [address] [place] [phone] 10/29/2024 1:30 PM CDT Appointment Cardiopulmonary Rehab [facility] [place] [address] Adrienne Marin MD [address] [place] [phone] 10/31/2024 1:30 PM CDT Appointment [facility] [address] Adrienne Marin MD [address] [place] [phone] 11/03/2024 1:30 PM CDT Appointment [facility] [address] [place] [address] Adrienne Marin MD [address] [place] [phone] 11/05/2024 1:30 PM CDT Appointment [facility] [place] [place] [address] Adrienne Marin MD [address] [place] [phone] 11/07/2024 1:30 PM CDT Appointment [facility] [address] [place] [address] Adrienne Marin MD [address] [place] [phone] 11/07/2024 2:40 PM CDT Office Visit [facility] Diabetes and Endocrinology - [address] [phone] Hannah Garrison MD [address] [place] [address] [place] [address] 11/10/2024 1:30 PM CDT Appointment [facility] [address] [place], [place] [address] [place] [address] Adrienne Marin MD [address] [place] [phone] 11/12/2024 1:30 PM CDT Appointment [facility] [place] [address] Adrienne Marin MD [address] [place] [phone] 11/14/2024 1:30 PM CDT Appointment [facility] [place] [address] Adrienne Marin MD [address] [place] [phone] 11/19/2024 1:30 PM CDT Appointment [facility] [place] [address] Adrienne Marin MD [address] [place] [phone] 11/21/2024 1:30 PM CDT Appointment [facility] [place] [address] Adrienne Marin MD [address] [place] [phone] 11/24/2024 1:30 PM CDT Appointment [facility] [place] [address] Adrienne Marin MD [address] [place] [phone] 11/26/2024 1:30 PM CDT Appointment [facility] [address] [place] [address] [place] [address] Adrienne Marin MD [address] [place] [phone] 12/30/2024 11:30 AM CDT Office Visit [facility] THREE [facility], [address] [place] [address] Roc Fulton MD [address] [facility]. [address] [place] [address] 02/03/2025 11:00 AM CDT Office Visit [facility]ialty Care - [facility] 3 [facility], [address] [place] [address] Nathan Lechuga MD [address] [place] [address] documented as of this encounter Goals Goal [...] home upon discharge General No Ayleen Garcia, TAX LAWYER documented as of this encounter Visit Diagnoses Not on filedocumented in this encounter Additional Health Concerns Assessment Noted Time PHQ-9 Depression Total Score: 0 11/19/19 22 3:11 PM CDT documented as of this encounter Care Teams Boatwright Relationship Specialty Start Date End Date Adrienne Marin MD [address] [place] [address] PCP - General INTERNAL MEDICINE 05/09/24 Gladys Sanchez MD [place] [employer] Seating Press Operator CARDIOVASCULAR DISEASE 05/28/19 documented as of this encounter
--- OUTSIDE RECORDS SUMMARY | 2024-10-25 20:15 | XMS_ITS | Encounter Summary ---
Author Organization [facility] [place] [address] Care Team Providers Care Dietitian Assistant Name Role Phone Pee Lafleur MD Unavailable Unavailable Adrian Lee MD Primary Care Provider [phone] Gladys Sanchez MD Unavailable [phone] Adrienne Marin MD Primary Care Provider [phone] Encounter Details Date Type Department Care Team (Late st Contact Info) Description 11/30/2018 Abstract [facility] [address] [place] [address] , Generic Conversion, Social History Tobacco Use Types Packs/Day Years Used Date Smoking Tobacco: Never Smokeless Tobacco: Never Sex and Gender Information Value Date Recorded Sex Assigned at Male 07/08/2024 7:30 AM HEAVY DUTY CUSTODIAN Legal Sex Male 8:56 PM CDT Gender Identity Male 07/08/2024 7:30 AM HEAVY DUTY CUSTODIAN Sexual Orientation Straight 07/08/2024 7: 30 AM HEAVY DUTY CUSTODIAN documented as of this encounter Plan of Treatment Upcoming Encounters Date Type Department Care Team (Late st Contact Info) Description 10/27/2024 1:30 PM CDT Appointment [facility]iop[place] [address] Adrienne Marin MD [facility] [place] [address] 10/29/2024 1:30 PM CDT Appointment Cardiopulmonary Rehab [address] [place] [address] Adrienne Marin MD [address] [place] [phone] 10/31/2024 1:30 PM CDT Appointment [place] [facility] [place] [address] Adrienne Marin MD [address] [place] [phone] 11/03/2024 1:30 PM CDT Appointment [place] [facility] [place] [address] Adrienne Marin MD [address] [place] [phone] 11/05/2024 1:30 PM CDT Appointment [place] [facility] [place] [place] [address] Adrienne Marin MD [address] [place] [phone] 11/07/2024 1:30 PM CDT Appointment [place] [facility] [place] [address] Adrienne Marin MD [address] [place] [phone] 11/07/2024 2:40 PM CDT Office Visit [facility] Diabetes and Endocrinology - [address] [phone] Hannah Garrison MD [address] [place] [address] 11/10/2024 1:30 PM CDT Appointment [place] [facility] [address] [place] [address] [address] [place] [address] Adrienne Marin MD [address] [place] [phone] 11/12/2024 1:30 PM CDT Appointment [place] [facility] [address] [place], [place] [address] [address] Adrienne Marin MD [address] [place] [phone] 11/14/2024 1:30 PM CDT Appointment [place] [facility] [address] [place] [address] [place] [address] Adrienne Marin MD [address] [place] [phone] 11/19/2024 1:30 PM CDT Appointment [place] [facility] [address] [place], [place] [address] [address] Adrienne Marin MD [address] [place] [phone] 11/21/2024 1:30 PM CDT Appointment [place] [facility] [place] [address] Adrienne Marin MD [address] [place] [phone] 11/24/2024 1:30 PM CDT Appointment [place] [facility] [place] [address] Adrienne Marin MD [address] [place] [phone] 11/26/2024 1:30 PM CDT Appointment [place] [facility] [address] [facility] [place] [address] [place] [address] Adrienne Marin MD [address] [place] [phone] 12/30/2024 11:30 AM CDT Office Visit [facility], [address] [place] [address] Roc Fulton MD Three [facility]. [facility] [address] [place] [address] 02/03/2025 11:00 AM CDT Office Visit [facility] Multispecialty Care - [facility] 3 [facility], [address] [place] [address] Nathan Lechuga MD [address] [place] [address] documented as of this encounter Visit Diagnoses Not on filedocumented in this encounter Additional Health Concerns Infection Onset Date Last Indicated Resolved Time COVID-19 Rule Out 07/19/2021 07/19/2021 07/19/2021 9:17 PM HEAVY DUTY CUSTODIAN COVID-19 Rule Out 07/19/2021 07/19/2021 07/20/2021 7:01 PM HEAVY DUTY CUSTODIAN COVID-19 Rule Out 08/18/2021 08/18/2021 08/18/2021 12:03 PM HEAVY DUTY CUSTODIAN COVID-19 Confirmed 08/18/2021 08/18/2021 12:32 AM CDT COVID-19 Rule Out 09/13/2021 09/13/2021 09/13/2021 5:00 AM CDT COVID-19 Rule Out 05/23/2022 05/23/2022 05/23/2022 3:38 PM HEAVY DUTY CUSTODIAN Influenza - Seasonal 05/23/2022 05/23/2022 023 12:34 AM HEAVY DUTY CUSTODIAN COVID-19 Rule Out 05/13/2023 05/13/2023 05/13/2023 4:14 PM HEAVY DUTY CUSTODIAN COVID-19 Rule Out 05/13/2023 05/13/2023 05/14/2023 1:35 AM HEAVY DUTY CUSTODIAN COVID-19 Rule Out 07/08/2023 07/08/2023 07/08/2023 5:34 PM HEAVY DUTY CUSTODIAN COVID-19 Rule Out 07/07/2024 07/07/2024 07/07/2024 7:39 AM HEAVY DUTY CUSTODIAN documented as of this encounter Care Teams Dietitian Assistant Relationship Specialty Start Date End Date Adrian Lee MD [address] [place] [address] PCP - General FAMILY PRACTICE 04/22/18 05/08/24 Adrienne Marin MD [address] [place] [address] PCP - General INTERNAL MEDICINE 05/09/24 Pee Lafleur MD [place] Lead Cashier CARDIOVASCULAR DISEASE 11/02/17 05/27/19 Gladys Sanchez MD [address] [place] [address] [place] Lead Cashier CARDIOVASCULAR DISEASE 05/28/19 documented as of this encounter
--- OUTSIDE RECORDS SUMMARY | 2024-10-25 20:15 | XMS_ITS | Encounter Summary ---
Author Organization [facility] Address [facility] [place] [address] Care Team Providers Care Tar Man Name Role Phone Adrian Lee MD Primary Care Provider [phone] Gladys Sanchez MD Unavailable [phone] Adrienne Marin MD Primary Care Provider [phone] Encounter Details Date Type Department Care Team (Late st Contact Info) Description 01/24/2023 Abstract [facility] [address] [place], [place] [id number] Flakito Hernandez MD Social History Tobacco Use [...] Sex Assigned at Male 07/08/2024 7:30 AM DYNAMITE PACKING MACHINE FEEDER Legal Sex Male 8:56 PM CDT Gender Identity Male 07/08/2024 7:30 AM DYNAMITE PACKING MACHINE FEEDER Sexual Orientation Straight 07/08/2024 7: 30 AM DYNAMITE PACKING MACHINE FEEDER documented as of this encounter Functional Status * RETIRED Are you deaf or do you have serious difficulty hearing Answer Date of Assessment Author Status Yes 06/14/2022 7:00 PM DYNAMITE PACKING MACHINE FEEDER Activ e * RETIRED Are you blind or do you have serious difficulty seeing, even when wearing glasses? Answer Date of Assessment Author Status No 06/14/2022 7:00 PM DYNAMITE PACKING MACHINE FEEDER Activ e * Do you have serious [...] Info) Description 10/27/2024 1:30 PM CDT Appointment [place] [facility] [place] [address] Adrienne Marin MD [address] [place] [phone] 10/29/2024 1:30 PM CDT Appointment [place] [facility] [place] [address] Adrienne Marin MD [address] [place] [phone] 10/31/2024 1:30 PM CDT Appointment [place] [facility] [place] [place] [address] Adrienne Marin MD [address] [place] [phone] 11/03/2024 1:30 PM CDT Appointment [place] [facility] [address] [place] [address] Adrienne Marin MD [address] [place] [phone] 11/05/2024 1:30 PM CDT Appointment [place] [facility] [address] [place] [address] Adrienne Marin MD [address] [place] [phone] 11/07/2024 1:30 PM CDT Appointment [place] [facility] [address] [place] [address] Adrienne Marin MD [address] [place] [phone] 11/07/2024 2:40 PM CDT Office Visit [facility] Diabetes and Endocrinology [address] [address] Hannah Garrison MD [address] [place] [address] 11/10/2024 1:30 PM CDT Appointment [place] [facility] [address] [place] [address] Adrienne Marin MD [address] [place] [phone] 11/12/2024 1:30 PM CDT Appointment [place] [facility] [address] [place] [address] Adrienne Marin MD [address] [place] [phone] 11/14/2024 1:30 PM CDT Appointment [place] [facility] [address] [place] [address] Adrienne Marin MD [address] [place] [phone] 11/19/2024 1:30 PM CDT Appointment [place] [facility] [place] [address] Adrienne Marin MD [address] [place] [phone] 11/21/2024 1:30 PM CDT Appointment [place] [facility] [place] [address] Adrienne Marin MD [address] [place] [phone] 11/24/2024 1:30 PM CDT Appointment [place] [facility] [place] [address] Adrienne Marin MD [address] [place] [phone] 11/26/2024 1:30 PM CDT Appointment [place] [facility] [place] [address] Adrienne Marin MD [address] [place] [phone] 12/30/2024 11:30 AM CDT Office Visit [facility], [address] [address] Roc Fulton MD Three [facility]. [address] [place] [address] 02/03/2025 11:00 AM CDT Office Visit [facility] Multispecialty Care - [facility] 3 [facility], [address] [place] [phone] Nathan Lechuga MD 3 [facility] [place] [address] documented as of this encounter Goals Goal Patient Goal Type Associated Problems Recent Progress Patient-Stated? Author Patient will return to prior living situation and remain independent in ADLs upon discharge from hospital General No Diana Todd, call or contact centre manager - family caregiver with be involved in care transitions and discharge planning General No Nicole Cole RN Safety Patient/family will have appropriate support at home upon discharge General No Ayleen Garcia, CLINICAL ENGINEERING MANAGER documented as of this encounter Visit Diagnoses Not on filedocumented in this encounter Additional Health Concerns Infection Onset Date Last Indicated Resolved Time COVID-19 Rule Out 05/13/2023 05/13/2023 05/13/2023 4:14 PM DYNAMITE PACKING MACHINE FEEDER COVID-19 Rule Out 05/13/2023 05/13/2023 05/14/2023 1:35 AM DYNAMITE PACKING MACHINE FEEDER COVID-19 Rule Out 07/08/2023 07/08/2023 07/08/2023 5:34 PM DYNAMITE PACKING MACHINE FEEDER COVID-19 Rule Out 07/07/2024 07/07/2024 07/07/2024 7:39 AM DYNAMITE PACKING MACHINE FEEDER Assessment Noted Time PHQ-9 Depression Total Score: 0 11/19/19 3:11 PM CDT documented as of this encounter Care Teams Tar Man Relationship Specialty Start Date End Date Adrian Lee MD [address] [facility] [place] [phone] PCP - General FAMILY PRACTICE 10/29/18 11/14/24 Adrienne Marin MD [address] [place] [address] PCP - General INTERNAL MEDICINE 05/09/24 [place] [address] [place] [address] [place] [phone] [place] Metal Roaster CARDIOVASCULAR DISEASE 05/28/19 documented as of this encounter
--- OUTSIDE RECORDS SUMMARY | 2024-10-25 20:15 | XMS_ITS | Encounter Summary ---
Author Organization [facility] Address [facility] [place] [address] Care Team Providers Care Grinding Machine Operator Portable Name Role Phone Gladys Sanchez MD Unavailable [phone] Adrienne Marin MD Primary Care Provider [phone] Encounter Details Date Type Department Care Team (Late st Contact Info) Description 10/24/2024 1:28 PM T Hospital Encounter [place] [facility] [address] [place] [address] Adrienne Marin MD [address] [place] [address] Arrived Social History Tobacco Use Types Packs/Day Years Used Date Smoking Tobacco: Never Passive Smoke Exposure: Never Smokeless Tobacco: Never Comments:non-smoker Alcohol Use Standard Drinks/Week Comments No 0 (1 standard drink = 0.6 oz pur e alcohol) [facility] Utilities Answer Date Recorded In the past 12 months has [facility] [employer], gas, oil, or water [email or web address] threatened to shut off services in your [...] place to sleep or slept in a care home (including now)? No 05/13/2023 Housing Stability Vital Sign Answer Jayden e Recorded In the last 12 months, was t here a time when you were not able to pay the mortgage or rent on time? No 07/15/2024 In the past 12 months, how m any times have you moved where you were living? 0 07/15/2024 At any time in the past 12 m [facility], were you homeless or living in a care home (including now)? No 07/15/2024 Sex and Gender Information Value Date Recorded Sex Assigned at Male 07/08/2024 7:30 AM PICKLING SOLUTION MAKER Legal Sex Male 8:56 PM CDT Gender Identity Male 07/08/2024 7:30 AM PICKLING SOLUTION MAKER Sexual Orientation Straight 07/08/2024 7: 30 AM PICKLING SOLUTION MAKER documented as of this encounter Functional Status [...] Info) Description 10/27/2024 1:30 PM CDT Appointment [place] [facility] [address] [place] [address] Adrienne Marin MD [address] [place] [phone] 10/29/2024 1:30 PM CDT Appointment [place] [facility] [address] [place] [address] Adrienne Marin MD [address] [place] [phone] 10/31/2024 1:30 PM CDT Appointment [place] [facility] [place] [address] Adrienne Marin MD [address] [place] [phone] 11/03/2024 1:30 PM CDT Appointment [place] [facility] [place] [address] Adrienne Marin MD [address] [place] [phone] 11/05/2024 1:30 PM CDT Appointment [place] [facility] [place] [address] Adrienne Marin MD [address] [place] [phone] 11/07/2024 1:30 PM CDT Appointment [place] [facility] [place] [address] Adrienne Marin MD [address] [place] [phone] 11/07/2024 2:40 PM CDT Office [facility] Diabetes and Endocrinology - [address] [address] Hannah Garrison MD [address] [place] [address] 11/10/2024 1:30 PM CDT Appointment [place] [facility] [address] [place] [address] Adrienne Marin MD [address] [place] [phone] 11/12/2024 1:30 PM CDT Appointment [place] [facility] [place] [address] Adrienne Marin MD [address] [place] [phone] 11/14/2024 1:30 PM CDT Appointment [place] [facility] [place] [address] Adrienne Marin MD [address] [place] [phone] 11/19/2024 1:30 PM CDT Appointment [place] [facility] [place] [address] Adrienne Marin MD [address] [place] [phone] 11/21/2024 1:30 PM CDT Appointment [place] [facility] [place] [address] Adrienne Marin MD [address] [place] [phone] 11/24/2024 1:30 PM CDT Appointment [place] [facility] [place] [address] Adrienne Marin MD [address] [place] [phone] 11/26/2024 1:30 PM CDT Appointment [place] [facility] [address] [place] [address] [address] [place] [address] Adrienne Marin MD [address] [place] [phone] 12/30/2024 11:30 AM CDT Office Visit [facility] [facility], [address] [place] [address] Roc Fulton MD [facility]. [address] [place] [address] 02/03/2025 11:00 AM CDT Office Visit [facility] Multispecialty Care - [facility] 3 [facility], [address] [place] [phone] Nathan Lechuga MD 3 [place] [address] documented as of this encounter Goals Goal Patient Goal Type Associated Problems Recent Progress Patient-Stated? Author Patient will return to prior living situation and remain independent in ADLs upon discharge from hospital General No Diana Todd, clinical data abstractor - family caregiver with be involved in care transitions and discharge planning General No Nicole Cole RN Safety Patient/family will have appropriate support at home upon discharge General No Ayleen Garcia, METAL NUMERICAL TOOL PROGRAMMER documented as of this encounter Visit Diagnoses Not on filedocumented in this encounter Additional Health Concerns Assessment Noted Time PHQ-9 Depression Total Score: 0 11/19/19 22 3:11 PM CDT documented as of this encounter Care Teams Grinding Machine Operator Portable Relationship Specialty Start Date End Date Adrienne Marin MD [address] [place] [phone] PCP - General INTERNAL MEDICINE 05/09/24 Gladys Sanchez MD [place] Interactive Account Manager CARDIOVASCULAR DISEASE 05/28/19 documented as of this encounter
--- OUTSIDE RECORDS SUMMARY | 2024-10-25 20:15 | XMS_ITS | Encounter Summary ---
Author Organization [facility] Address [address] [place] [address] Care Team Providers Care Resident Inspector Name Role Phone Gladys Sanchez MD Unavailable [phone] Adrienne Marin MD Primary Care Provider [phone] Encounter Details Date Type Department Care Team (Latest Contact Info) Description 10/24/2024 Travel Social History Tobacco Use Types Packs/Day Years Used Date Smoking Tobacco: Never Passive Smoke Exposure: Never Smokeless Tobacco: Never Comments:non-smoker Alcohol Use Standard Drinks/Week Comments No 0 (1 standard drink = 0.6 oz pur e alcohol) [facility] Utilities Answer Date Recorded In the past 12 months has e [employer], gas, oil, or water [employer] threatened to shut off services in your [...] place to sleep or slept in a penitentiary (including now)? No 05/13/2023 Housing Stability Vital Sign Answer Jayden e Recorded In the last 12 months, was t here a time when you were not able to pay the mortgage or rent on time? No 07/15/2024 In the past 12 months, how m any times have you moved where you were living? 0 07/15/2024 At any time in the past 12 m [facility], were you homeless or living in a penitentiary (including now)? No 07/15/2024 Sex and Gender Information Value Date Recorded Sex Assigned at Male 07/08/2024 7:30 AM MARKETING COMMUNICATIONS ASSISTANT Legal Sex Male 8:56 PM CDT Gender Identity Male 07/08/2024 7:30 AM MARKETING COMMUNICATIONS ASSISTANT Sexual Orientation Straight 07/08/2024 7: 30 AM MARKETING COMMUNICATIONS ASSISTANT documented as of this encounter Functional Status [...] Info) Description 10/27/2024 1:30 PM CDT App[facility]ment [place] [facility] [place] [address] Adrienne Marin MD [address] [place] [phone] 10/29/2024 1:30 PM CDT Appointment [place] [facility] [place] [address] Adrienne Marin MD [address] [place] [phone] 10/31/2024 1:30 PM CDT Appointment [place] [address] [place] [address] Adrienne Marin MD [address] [place] [phone] 11/03/2024 1:30 PM CDT Appointment [place] [facility] [place] [address] Adrienne Marin MD [address] [place] [phone] 11/05/2024 1:30 PM CDT Appointment [place] [facility] [place] [address] Adrienne Marin MD [address] [place] [phone] 11/07/2024 1:30 PM CDT Appointment [place] [facility] [place] [address] Adrienne Marin MD [address] [place] [phone] 11/07/2024 2:40 PM CDT Office Visit [facility] Diabetes and Endocrinology - [address] [address] Hannah Garrison MD [address] [place] [address] [place], [place] [address] 11/10/2024 1:30 PM CDT App[facility]ment [place] [facility] [place] [address] Adrienne Marin MD [address] [place] [phone] 11/12/2024 1:30 PM CDT Appointment [facility] [address] [place] [address] Adrienne Marin MD [address] [place] [phone] 11/14/2024 1:30 PM CDT Appointment [facility] [address] [place] [address] Adrienne Marin MD [address] [place] [phone] 11/19/2024 1:30 PM CDT Appointment [facility] [address] [place] [address] Adrienne Marin MD [address] [place] [phone] 11/21/2024 1:30 PM CDT Appointment [place] [place] [address] Adrienne Marin MD [address] [place] [phone] 11/24/2024 1:30 PM CDT Appointment [facility] [address] [place] [address] Adrienne Marin MD [address] [place] [phone] 11/26/2024 1:30 PM CDT Appointment [facility] [address] [place] [address] Adrienne Marin MD [address] [place] [address] 12/30/2024 11:30 AM CDT Office Visit [facility] [facility], [address] [place] [address] Roc Fulton MD Three [facility]. [address] [place] [address] 02/03/2025 11:00 AM CDT Office Visit [facility]ialty Care - [facility] 3 [facility], [address] [place] [address] Nathan Lechuga MD 3 [place] [address] documented as of this encounter Goals Goal Patient Goal Type Associated Problems Recent Progress Patient-Stated? Author Patient will return to prior living situation and remain independent in ADLs upon discharge from hospital General No Diana Todd, liability claims manager - family caregiver with be involved in care transitions and discharge planning General No Nicole Cole RN Safety Patient/family will have appropriate support at home upon discharge General No Ayleen Garcia, FIRE CHIEF'S AIDE documented as of this encounter Visit Diagnoses Not on filedocumented in this encounter Additional Health Concerns Assessment Noted Time PHQ-9 Depression Total Score: 0 11/19/19 22 3:11 PM CDT documented as of this encounter Care Teams Resident Inspector Relationship Specialty Start Date End Date Adrienne Marin MD [address] [place] [phone] PCP - General INTERNAL MEDICINE 05/09/24 Gladys Sanchez MD Clements Windlasser CARDIOVASCULAR DISEASE 05/28/19 documented as of this encounter
--- OUTSIDE RECORDS SUMMARY | 2024-10-25 20:15 | XMS_ITS | Encounter Summary ---
Author Organization [facility] Address [facility] [place] [address] Care Team Providers Care Clinical Advisor Name Role Phone Adrian Lee MD Primary Care Provider [phone] Gladys Sanchez MD Unavailable [phone] Adrienne Marin MD Primary Care Provider [phone] Encounter Details Date Type Department Care Team (Late st Contact Info) Description 10/26/2020 Abstract [facility] [address] [place] [id number] Social History Tobacco Use Types Packs/Day Years [...] Sex Assigned at Male 07/08/2024 7:30 AM LOT BOSS Legal Sex Male 8:56 PM CDT Gender Identity Male 07/08/2024 7:30 AM LOT BOSS Sexual Orientation Straight 07/08/2024 7: 30 AM LOT BOSS COVID-19 Exposure Response Date Recorded In the last month, have you been in contact with someone who was confirmed or suspected to have Coronavirus / COVID-19? No / Unsure 10/02/2020 11:49 AM CDT documented as of this encounter Plan of Treatment Upcoming Encounters Date Type Department Care Team (Late st Contact Info) Description 10/27/2024 1:30 PM CDT Appointment [facility] [place] [address] Adrienne Marin MD [address] [place] [phone] 10/29/2024 1:30 PM CDT Appointment [facility] [place] [address] Adrienne Marin MD [address] [place] [phone] 10/31/2024 1:30 PM CDT Appointment [facility] [place] [address] Adrienne Marin MD [address] [place] [phone] 11/03/2024 1:30 PM CDT Appointment [facility] [place] [address] Adrienne Marin MD [address] [place] [phone] 11/05/2024 1:30 PM CDT Appointment [facility] [place] [address] Adrienne Marin MD [address] [place] [phone] 11/07/2024 1:30 PM CDT Appointment [facility] [place] [address] Adrienne Marin MD [address] [place] [phone] 11/07/2024 2:40 PM CDT Office Visit [facility] Medical [facility] Diabetes and Endocrinology - [place] [address] [place] [place] [address] Hannah Garrison MD [facility] [place], [place] [id number] 11/10/2024 1:30 PM CDT Appointment [facility] [address] [place] [address] Adrienne Marin MD [address] [place] [phone] 11/12/2024 1:30 PM CDT Appointment [facility] [address] [place] [address] Adrienne Marin MD [address] [place] [phone] 11/14/2024 1:30 PM CDT Appointment [facility] [address] [place] [address] Adrienne Marin MD [address] [place] [phone] 11/19/2024 1:30 PM CDT Appointment [facility] [address] [place] [address] Adrienne Marin MD [address] [place] [phone] 11/21/2024 1:30 PM CDT Appointment [facility] [address] [place] [address] Adrienne Marin MD [address] [place] [phone] 11/24/2024 1:30 PM CDT Appointment [facility] [address] [place] [address] Adrienne Marin MD [address] [place] [phone] 11/26/2024 1:30 PM CDT Appointment [facility] [address] [facility] [place] [address] Adrienne Marin MD [address] [place] [phone] 12/30/2024 11:30 AM CDT Office Visit [facility] THREE [facility], [facility] [address] [place] [address] Roc Fulton MD Three [facility]. [facility] [address] [place] [address] 02/03/2025 11:00 AM CDT Office Visit [facility] Medical Group Multispecialty Care - [facility] [address] [facility], [address] [place] [id number] Nathan Lechuga MD [address] [place] [address] documented as of this encounter Visit Diagnoses Not on filedocumented in this encounter Additional Health Concerns Infection Onset Date Last Indicated Resolved Time COVID-19 Rule Out 07/19/2021 07/19/2021 07/19/2021 9:17 PM LOT BOSS COVID-19 Rule Out 07/19/2021 07/19/2021 07/20/2021 7:01 PM LOT BOSS COVID-19 Rule Out 08/18/2021 08/18/2021 08/18/2021 12:03 PM LOT BOSS COVID-19 Confirmed 08/18/2021 08/18/2021 12:32 AM CDT COVID-19 Rule Out 09/13/2021 09/13/2021 09/13/2021 5:00 AM CDT COVID-19 Rule Out 05/23/2022 05/23/2022 05/23/2022 3:38 PM LOT BOSS Influenza - Seasonal 05/23/2022 05/23/2022 023 12:34 AM LOT BOSS COVID-19 Rule Out 05/13/2023 05/13/2023 05/13/2023 4:14 PM LOT BOSS COVID-19 Rule Out 05/13/2023 05/13/2023 05/14/2023 1:35 AM LOT BOSS COVID-19 Rule Out 07/08/2023 07/08/2023 07/08/2023 5:34 PM LOT BOSS COVID-19 Rule Out 07/07/2024 07/07/2024 07/07/2024 7:39 AM LOT BOSS documented as of this encounter Care Teams Clinical Advisor Relationship Specialty Start Date End Date Adrian Lee MD [address] [place] [address] PCP - General FAMILY PRACTICE 04/22/18 05/08/24 Adrienne Marin MD [address] [place] [phone] PCP - General INTERNAL MEDICINE 05/09/24 Gladys Sanchez MD [address] [place] [address] [place] [employer] Worker CARDIOVASCULAR DISEASE 05/28/19 documented as of this encounter
--- OUTSIDE RECORDS SUMMARY | 2024-10-25 20:15 | XMS_ITS | Encounter Summary ---
Author Organization [facility] Address [facility] [place] [address] Care Team Providers Care Senior Business Analyst Name Role Phone Adrian Lee MD Primary Care Provider [phone] Gladys Sanchez MD Unavailable [phone] Adrienne Marin MD Primary Care Provider Encounter Details Date Type Department Care Team (Late st Contact Info) Description 05/21/2023 Hospital Follow-up Call [facility] [address] [place] [address] Amanda Ohara RN Social History Tobacco Use Types Packs/Day Years Used Date Smoking Tobacco: Never Passive Smoke Exposure: Never Smokeless Tobacco: Never Comments:non-smoker Alcohol Use Standard Drinks/Week Comments No 0 (1 standard drink = 0.6 oz pur e alcohol) [facility] Utilities Answer Date Recorded In the past 12 months has [employer], oil, or water [employer] threatened to shut off services in your [...] in a jail (including now)? No 05/13/2023 Sex and Gender Information Value Date Recorded Sex Assigned at Male 07/08/2024 7:30 AM SHIP ENGINEER Legal Sex Male 8:56 PM CDT Gender Identity Male 07/08/2024 7:30 AM SHIP ENGINEER Sexual Orientation Straight 07/08/2024 7: 30 AM SHIP ENGINEER documented as of this encounter Functional [...] Info) Description 10/27/2024 1:30 PM CDT Appointment [facility] [place] [address] Adrienne Marin MD [address] [place] [phone] 10/29/2024 1:30 PM CDT Appointment [facility] [place] [address] Adrienne Marin MD [address] [place] [phone] 10/31/2024 1:30 PM CDT Appointment [facility] [place] [address] Adrienne Marin MD [address] [place] [phone] 11/03/2024 1:30 PM CDT Appointment [facility] [place] [address] Adrienne Marin MD [address] [place] [phone] 11/05/2024 1:30 PM CDT Appointment [facility] [place] [address] Adrienne Marin MD [address] [place] [phone] 11/07/2024 1:30 PM CDT Appointment [facility] [place] [address] Adrienne Marin MD [address] [place] [phone] 11/07/2024 2:40 PM CDT Office Visit [facility] Medical Group Diabetes and Endocrinology - [address] [address] Hannah Garrison MD [address] [place] [address] 11/10/2024 1:30 PM CDT Appointment [facility] [place] [address] Adrienne Marin MD [address] [place] [phone] 11/12/2024 1:30 PM CDT Appointment [facility] [place] [address] Adrienne Marin MD [address] [place] [phone] 11/14/2024 1:30 PM CDT Appointment [facility] [address] [place] [address] Adrienne Marin MD [address] [place] [phone] 11/19/2024 1:30 PM CDT Appointment [facility] [facility] [place] [address] Adrienne Marin MD [address] [place] [phone] 11/21/2024 1:30 PM CDT Appointment [facility] [place] [address] Adrienne Marin MD [address] [place] [phone] 11/24/2024 1:30 PM CDT Appointment [facility] [place] [address] Adrienne Marin MD [address] [place] [phone] 11/26/2024 1:30 PM CDT Appointment [facility] [place] [address] Adrienne Marin MD [address] [place] [phone] 12/30/2024 11:30 AM CDT Office Visit [facility], [address] [address] Roc Fulton MD Three [facility]. [address] [place] [address] 02/03/2025 11:00 AM CDT Office Visit [facility] Medical Group Multispecialty Care - [facility] 3 [facility], [address] [place] [phone] Nathan Lechuga MD [address] [place] [address] documented as of this encounter Goals Goal Patient Goal Type Associated Problems Recent Progress Patient-Stated? Author Patient will return to prior living situation and remain independent in ADLs upon discharge from hospital General No Diana Todd, program consultant - family caregiver with be involved in care transitions and discharge planning General No Nicole Cole RN Safety Patient/family will have appropriate support at home upon discharge General No Ayleen Garcia, EMERGENCY DEPARTMENT documented as of this encounter Visit Diagnoses Not on filedocumented in this encounter Additional Health Concerns Infection Onset Date Last Indicated Resolved Time COVID-19 Rule Out 07/08/2023 07/08/2023 07/08/2023 5:34 PM SHIP ENGINEER COVID-19 Rule Out 07/07/2024 07/07/2024 07/07/2024 7:39 AM SHIP ENGINEER Assessment Noted Time PHQ-9 Depression Total Score: 0 11/19/19 22 3:11 PM CDT documented as of this encounter Care Teams Senior Business Analyst Relationship Specialty [place] [address] [place] [address] [place] [phone] PCP - General FAMILY PRACTICE 04/22/18 05/08/24 Adrienne Marin MD [address] [place] [address] PCP - General INTERNAL MEDICINE 05/09/24 Gladys Sanchez MD [address] [place] [address] Duarte Microbiology Technologist CARDIOVASCULAR DISEASE 05/28/19 documented as of this encounter
--- OUTSIDE RECORDS SUMMARY | 2024-10-25 20:15 | XMS_ITS | Clinical Summary ---
Author Organization [facility] Address [address] [place] [address] Care Team Providers Care Hole Digger Operator Name Role Phone Gladys Sanchez MD Unavailable [phone] Adrienne Marin MD Primary Care Provider [phone] Allergies Active Allergy Reactions Criticality Noted Date [...] 5-BEVEL PEN NEEDLES 31G X 5 MM [facility] [place]ICE DAILY TO INJECT LANTUS AND VICTOZA 08/31/19 Active pantoprazole EC (PROTONIX) 40 MG tablet Take 1 tablet (40 mg total) by mouth daily for 30 days. 30 tablet 05/19/20 Active NEBULIZER/TUBIN G/MOUTHPIECE KIT, DME,Indications :Acute on chronic diastolic congestive heart failure ([facility]/HCC HHS/HCC),Camarena ry artery disease involving [place] cro[place] coronary artery of [place] heart without angina pectoris Nebulizer machine with all tubing Dx CHF exacerbation and Pneumonia 1 kit 05/18/20 Active insulin NPH isophane & regular (NOVOLIN 70/30 FLEXPEN) (70-30) 100 UNIT/ML injection (pen)Indication s:Type 2 diabetes mellitus with stage 3b chronic kidney disease, with long-term current use of insulin (CMS/HCC HHS/HCC) ADMINISTER 35 UNITS UNDER THE SKIN TWICE DAILY BEFORE MEALS 30 mL 5 09/11/19 Active Additional Information Patient taking differently: ADMINISTER 35 UNITS UNDER THE SKIN TWICE DAILY BEFORE MEALS pt taking 30 units and 20 units, Reported on 05/09/2024 glipiZIDE (GLUCOTROL) 10 MG tabletIndicatio ns:Type 2 diabetes mellitus with stage 3a chronic kidney disease, with long-term current use of insulin (CMS/HCC HHS/HCC) TAKE 1 TABLET(10 MG) BY MOUTH EVERY MORNING BEFORE BREAKFAST 90 tablet 1 12/19/19 Active metFORMIN ER (GLUCOPHAGE-XR) 500 MG 24 hr tabletIndicatio ns:Type 2 diabetes mellitus with stage 3a chronic kidney disease, with long-term current use of insulin ([facility]) TAKE 1 TABLET BY MOUTH DAILY WITH SUPPER 90 tablet 3 01/28/20 24 Active Additional Information Patient not taking.Reported on 09/01/2024 furosemide (LASIX) 80 MG tablet take 1 tablet by mouth every morning 90 tablet 1 02/06/20 24 Active allopurinol (ZYLOPRIM) 100 MG tablet TAKE 1 TABLET(100 MG) BY MOUTH DAILY 90 tablet 1 03/27/20 24 Active gabapentin (NEURONTIN) 100 MG capsule Take 1 capsule (100 mg total) by mouth 3 (three) times daily. 90 capsule 08/03/19 25 Active Additional Information Patient taking differently: 300 mgOral 3 times daily, Reported on 09/01/2024 carvedilol (COREG) 25 MG tablet Take 1 tablet (25 mg total) by mouth 2 (two) times daily. 60 tablet 08/03/19 25 Active isosorbide mononitrate ER (IMDUR) 30 MG 24 hr tablet Take 1 tablet (30 mg total) by mouth daily. 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 120 tablet 10/14/19 25 Active levETIRAcetam (KEPPRA) 750 MG tablet Take 1 tablet (750 mg total) by mouth 2 (two) times daily. 120 tablet 08/03/19 25 025 Discontin ued(Reord er) Active Problems Problem Noted Date Diagnosed Date Encephalopathy 07/06/2024 NSTEMI (non-ST elevated myoc ardial infarction) ([facility]) 05/13/2023 Stage 3b chronic kidney disease 01/03/2023 Hyperuricemia w/o signs of i nflam arthrit and tophaceous dis 07/20/2022 Hypomagnesemia 03/20/2022 Benign prostatic hyperplasia without lower urinary tract symptoms 01/09/2022 Iron deficiency anemia 08/16/2021 S/P angioplasty with stent 04/26/2018 Chronic diastolic congestive heart failure ([facility]) 04/26/2018 Type 2 diabetes mellitus wit h stage 3b chronic kidney disease, with long-term current use of insulin ([facility]) 07/19/2017 Hypertension, essential Dyslipidemia CAD (coronary artery disease) Resolved Problems Problem Noted Date Diagnosed Date Resolved Date NSTEMI (non-ST elevated myoc ardial infarction) ([facility]) 06/14/2022 05/07/2023 Edema, unspecified type 03/20/202210/23 Hypokalemia 01/09/2022 05/07/2023 Diabetes mellitus without co mplication ([facility]) 01/09/2022 04/01/2022 Intracranial bleed ([facility]) 10/09/2021 11/18/2021 Dizziness 10/08/2021 11/18/2021 Acute respiratory failure ([facility]) 08/18/2021 11/18/2021 Pneumonia due to COVID-19 virus 08/18/2021 11/18/2021 PNA (pneumonia) 07/19/2021 11/18/2021 Stage 3a chronic kidney disease 06/01/2020 01/03/2023 Femoroacetabular impingement of both hips 09/04/2019 11/18/2021 Primary osteoarthritis of left hip 08/17/2019 11/18/2021 Primary osteoarthritis of right hip 08/17/2019 11/18/2021 Trigger finger, left ring finger 05/28/2019 11/18/2021 SOB (shortness of breath) 04/26/2018 Depression 07/19/2017 11/18/2021 Encounters Date Type Department Care Team Description 10/24/2024 1:28 PM CDT Hospital Encounter [facility] [address] [place] [address] Adrienne Marin MD Arrived 10/24/2024 Travel 10/22/2024 1:21 PM CDT - 10/22/2024 11:59 PM CDT Hospital Encounter [facility] [address] [place] [address] Adrienne Marin MD Discharge Disposition: Home or Self Care (Routine Discharge) 10/22/2024 Travel 10/20/2024 1:22 PM CDT - 10/20/2024 11:59 PM CDT Hospital Encounter [facility] [address] [place] [address] [place] [address] Adrienne Marin MD Discharge Disposition: Home or Self Care (Routine Discharge) 10/20/2024 Travel 10/17/2024 1:18 PM CDT - 10/17/2024 11:59 PM CDT Hospital [facility] [address] [place] [address] [place] [address] Adrienne Marin MD Discharge Disposition: Home or Self Care (Routine Discharge) 10/17/2024 Travel 10/13/2024 1:23 PM CDT - 10/13/2024 11:59 PM CDT Hospital Encounter [facility] [address] [place], [place] [address] [address] Adrienne Marin MD Discharge Disposition: Home or Self Care (Routine Discharge) 10/13/2024 Telephone [facility] - [address] [place] [address] Nathan Lechuga MD Medication 10/13/2024 Travel 10/13/2024 MyChart Message Enc [facility] Call Center [address] [place] [address] [place] Provider levETIRAcetam (KEPPRA) 750 MG tablet 10/10/2024 1:28 PM CDT - 10/10/2024 11:59 PM CDT Hospital Encounter [facility] [address] [place], [place] [address] [address] Adrienne Marin MD Discharge Disposition: Home or Self Care (Routine Discharge) 10/10/2024 Travel 10/08/2024 1:21 PM CDT - 10/08/2024 11:59 PM CDT Hospital Encounter [facility] [address] [place] [address] [place] [address] Adrienne Marin MD Discharge Disposition: Home or Self Care (Routine Discharge) 10/08/2024 Travel 10/03/2024 1:29 PM CDT - 10/03/2024 11:59 PM CDT Hospital Encounter [facility] [address] [place] [address] Adrienne Marin MD Discharge Disposition: Home or Self Care (Routine Discharge) 10/03/2024 Travel 10/01/2024 1:18 PM CDT - 10/01/2024 11:59 PM CDT Hospital Encounter [facility] [address] [place] [place] [address] Adrienne Marin MD Discharge Disposition: Home or Self Care (Routine Discharge) 10/01/2024 Travel 09/29/2024 1:19 PM CDT - 09/29/2024 11:59 PM CDT Hospital Encounter [facility] [address] [place] [place] [address] Adrienne Marin MD Discharge Disposition: Home or Self Care (Routine Discharge) 09/29/2024 Travel 09/26/2024 1:25 PM CDT - 09/26/2024 11:59 PM CDT Hospital Encounter [facility] [address] [place] [address] Adrienne Marin MD Discharge Disposition: Home or Self Care (Routine Discharge) 09/26/2024 Travel 09/24/2024 1:30 PM CDT - 09/24/2024 11:59 PM CDT Hospital Encounter [facility] [address] [place] [address] Adrienne Marin MD Discharge Disposition: Home or Self Care (Routine Discharge) 09/24/2024 Travel 09/19/2024 1:16 PM CDT - 09/19/2024 11:59 PM CDT Hospital Encounter [facility] [address] [place] [address] Adrienne Marin MD Discharge Disposition: Home or Self Care (Routine Discharge) 09/19/2024 Travel 09/17/2024 1:30 PM CDT - 09/17/2024 11:59 PM CDT Hospital Encounter [facility] [address] [place] [address] Adrienne Marin MD Discharge Disposition: Home or Self Care (Routine Discharge) 09/17/2024 Travel 09/15/2024 1:25 PM CDT - 09/15/2024 11:59 PM CDT Hospital Encounter [facility] [address] [place] [address] Adrienne Marin MD Discharge Disposition: Home or Self Care (Routine Discharge) 09/15/2024 Travel 09/12/2024 1:19 PM CDT - 09/12/2024 11:59 PM CDT Hospital Encounter [facility] [address] [place] [address] Adrienne Marin MD Discharge Disposition: Home or Self Care (Routine Discharge) 09/12/2024 Telephone [facility] [employer] [facility] [address] [address] [place] [address] Nathan Lechuga MD Results 09/12/2024 Travel 09/10/2024 1:29 PM CDT - 09/10/2024 11:59 PM CDT Hospital Encounter [facility] [address] [place] [address] Adrienne Marin MD Discharge Disposition: Home or Self Care (Routine Discharge) 09/10/2024 Travel 09/08/2024 1:21 PM CDT - 09/08/2024 11:59 PM CDT Hospital Encounter [facility] [address] [place] [address] Adrienne Marin MD Discharge Disposition: Home or Self Care (Routine Discharge) 09/08/2024 Travel 09/05/2024 1:59 PM CDT - 09/05/2024 4:10 PM CDT Emergency [facility] [address] [place], [place] [address] [address] Zhanna Reid MD Hyperglycemia Discharge Disposition: Home or Self Care (Routine Discharge) 09/05/2024 1:30 PM CDT - 09/05/2024 1:58 PM CDT Hospital Encounter [facility] [address] [place] [address] Adrienne Marin MD Discharge Disposition: Home or Self Care (Routine Discharge) 09/05/2024 Telephone [facility] Diabetes and Endocrinology - [address] [address] Hannah Garrison MD Blood Sugar Reporting (Elevated blood sugar >500 at cardiac rehab) 09/05/2024 Travel 09/03/2024 1:23 PM CDT - 09/03/2024 11:59 PM CDT Hospital Encounter [facility] [address] [place], [place] [address] [address] Adrienne Marin MD Discharge Disposition: Home or Self Care (Routine Discharge) 09/03/2024 Travel 09/01/2024 11:30 AM CDT Office Visit [facility], [address] [address] Anders Palacio NP Hospital Discharge 09/01/2024 Travel 08/22/2024 1:24 PM EMAIL ADMINISTRATOR - 08/22/2024 11:59 PM EMAIL ADMINISTRATOR Hospital Encounter [facility] [address] [place], [place] [address] [address] Adrienne Marin MD Discharge Disposition: Home or Self Care (Routine Discharge) 08/22/2024 Travel 08/18/2024 1:30 PM EMAIL ADMINISTRATOR - 08/18/2024 11:59 PM EMAIL ADMINISTRATOR Hospital Encounter [facility] [address] [place], [place] [address] [address] Adrienne Marin MD Discharge Disposition: Home or Self Care (Routine Discharge) 08/18/2024 Travel 08/15/2024 9:55 AM EMAIL ADMINISTRATOR - 08/15/2024 11:59 PM EMAIL ADMINISTRATOR Hospital Encounter [facility] [place] [address] Adrienne Marin MD Discharge Disposition: Home or Self Care (Routine Discharge) 08/15/2024 Travel 08/06/2024 Hospital Follow-up Call [facility] [place] [address] Niesha Love LPN Follow Up Call (ABRAM 07/15-08/03/24) 07/15/2024 8:40 PM EMAIL ADMINISTRATOR - 08/03/2024 3:26 PM EMAIL ADMINISTRATOR Hospital Encounter [facility] [place] [address] Nidia Garcia MD Malcolm, MD John Alanis, Sabrina Garcia, DO Bocanegra, MD Janet Alracon, Sabrina Bellamy, MD Holguin, Carl Swann MD Discharge Disposition: Home or Self Care (Routine Discharge) from Last 3 Months Immunizations Immunization Administration Dates Next Due Fluzone 6 Months+ [...] drink = 0.6 oz pur e alcohol) [facility] Utilities Answer Date Recorded In the past 12 months has e electric, gas, oil, or water [employer] threatened to shut off services in your [...] place to sleep or slept in a custodial (including now)? No 05/13/2023 Housing Stability Vital Sign Answer Jayden e Recorded In the last 12 months, was t here a time when you were not able to pay the mortgage or rent on time? No 07/15/2024 In the past 12 months, how m any times have you moved where you were living? 0 07/15/2024 At any time in the past 12 m [facility], were you homeless or living in a custodial (including now)? No 07/15/2024 Sex and Gender Information Value Date Recorded Sex Assigned at Male 07/08/2024 7:30 AM EMAIL ADMINISTRATOR Legal Sex Male 8:56 PM CDT Gender Identity Male 07/08/2024 7:30 AM EMAIL ADMINISTRATOR Sexual Orientation Straight 07/08/2024 7: 30 AM EMAIL ADMINISTRATOR Last Filed Vital Signs Vital Sign Reading Time Taken Comments Blood Pressure 168/62 09/05/2024 3:30 PM CDT Pulse 67 09/05/2024 2:04 PM CDT Temperature 36.2 C (97.2 F) 09/05/2024 2:04 PM CDT Respiratory Rate 16 09/05/2024 2:04 PM CDT Oxygen Saturation 97% 09/05/2024 3:30 PM CDT Inhaled Oxygen Concentration - - Weight 79 kg (174 lb 4 oz) 09/05/2024 2:04 PM CD T Height 165.1 cm (5' 5 ) 09/05/2024 2:04 PM CDT Body Mass Index 29 09/05/2024 2:04 PM CDT Plan of Treatment Upcoming Encounters Date Type Department Care Team (Late st Contact Info) Description 10/27/2024 1:30 PM CDT Appointment [facility] [place] [address] Adrienne Marin MD [address] [place] [phone] 10/29/2024 1:30 PM CDT Appointment [place] [address] Adrienne Marin MD [address] [place] [phone] 10/31/2024 1:30 PM CDT Appointment [facility] [place] [address] Adrienne Marin MD [address] [place] [phone] 11/03/2024 1:30 PM CDT Appointment [facility] [place] [address] Adrienne Marin MD [address] [place] [phone] 11/05/2024 1:30 PM CDT Appointment [facility] [address] [place] [address] [address] [place] [address] Adrienne Marin MD [address] [place] [phone] 11/07/2024 1:30 PM CDT Appointment [facility] [place] [address] Adrienne Marin MD [address] [place] [phone] 11/07/2024 2:40 PM CDT Office Visit [facility] Diabetes and Endocrinology - [address] [address] Hannah Garrison MD [address] [place] [address] 11/10/2024 1:30 PM CDT Appointment [facility] [place] [address] Adrienne Marin MD [address] [place] [phone] 11/12/2024 1:30 PM CDT Appointment [facility] [address] [place] [address] Adrienne Marin MD [address] [place] [phone] 11/14/2024 1:30 PM CDT Appointment [facility] [place] [address] Adrienne Marin MD [address] [place] [phone] 11/19/2024 1:30 PM CDT Appointment [facility] [place] [address] Adrienne Marin MD [address] [place] [phone] 11/21/2024 1:30 PM CDT Appointment [facility] [place] [address] Adrienne Marin MD [address] [place] [phone] 11/24/2024 1:30 PM CDT Appointment [facility] [place] [address] Adrienne Marin MD [address] [place] [phone] 11/26/2024 1:30 PM CDT Appointment [facility] [place] [address] Adrienne Marin MD [address] [place] [phone] 12/30/2024 11:30 AM CDT Office Visit [facility], [address] [place] [address] Roc Fulton MD [facility]. [address] [place] [address] 02/03/2025 11:00 AM CDT Office Visit [facility] - [facility] [address] [facility], [address] [place] [phone] Nathan Lechuga MD [address] [place] [address] Health Maintenance Due Date Last Done Comments ASCVD Statin 1952 Diabetes: Retinopathy Eye Exam 1970 Hepatitis C 1970 DTaP, Tdap and Td Vaccines (1 - Tdap) 10/24/1971 Zoster Vaccines (1 of 2) 2002 RSV Immunization or 60+ Years (1 - Risk 60-74 years 1-dose series) 2012 Annual Medicare Wellness Visit 2017 COVID-19 Vaccine ( season) 2024 10/01/2020, 09/01/2020 PHQ-2 (Physician [place]) 06/25/2024 05/09/2024 Hemoglobin A1C 01/07/2025 07/10/2024, 06/25, 05/09/2024, Additional history exists Kidney Health Evaluation 04/25/2025 04/25/2024 Lipid Panel 07/07/2025 07/07/2024, 11/0 06/2023, 05/07/2023, Additional history exists Colorectal Cancer Screening Colonoscopy (10 Years) 05/31/2028 05/31/2018 Pneumococcal Vaccine: 50+ Years Completed 04/17/2019, 04/15/2018 Meningococcal B Vaccine [...] discharge from hospital General No Diana Todd, site reliability engineer - family caregiver with be involved in care transitions and discharge planning General No Nicole Cole RN Safety Patient/family will have appropriate support at home upon discharge General No Ayleen Garcia, ADMISSIONS NURSE Procedures Procedure Name Priority Date/Time Associated Diagnosis Comments POCT GLUCOSE - RUSSO DOCKED DEVICE Routine 09/05/2024 4:02 PM CDT POCT GLUCOSE - RUSSO DOCKED DEVICE Routine 09/05/2024 3:16 PM CDT BLOOD GAS, VENOUS STAT 09/05/2024 2:3 0 PM CDT COMPREHENSIVE METABOLIC PANEL STAT 09/05/2024 2:30 PM CDT CBC W/DIFF AUTOMATED STAT 09/05/2024 2:30 PM CDT POCT GLUCOSE - RUSSO DOCKED DEVICE Routine 09/05/2024 2:29 PM CDT POCT GLUCOSE - RUSSO DOCKED DEVICE Routine 08/03/2024 11:12 AM EMAIL ADMINISTRATOR COMPREHENSIVE METABOLIC PANEL Routine 08/03/2024 6:34 AM EMAIL ADMINISTRATOR CBC W/DIFF AUTOMATED Routine 08/03/2024 6:34 AM EMAIL ADMINISTRATOR POCT GLUCOSE - RUSSO DOCKED DEVICE Routine 08/03/2024 6:06 AM EMAIL ADMINISTRATOR POCT GLUCOSE - RUSSO DOCKED DEVICE Routine 08/02/2024 8:01 PM EMAIL ADMINISTRATOR POCT GLUCOSE - RUSSO DOCKED DEVICE Routine 08/02/2024 3:13 PM EMAIL ADMINISTRATOR POCT GLUCOSE - RUSSO DOCKED DEVICE Routine 08/02/2024 11:11 AM EMAIL ADMINISTRATOR COMPREHENSIVE METABOLIC PANEL Routine 08/02/2024 7:06 AM EMAIL ADMINISTRATOR CBC W/DIFF AUTOMATED Routine 08/02/2024 7:06 AM EMAIL ADMINISTRATOR POCT GLUCOSE - RUSSO DOCKED DEVICE Routine 08/02/2024 5:55 AM EMAIL ADMINISTRATOR POCT GLUCOSE - RUSSO DOCKED DEVICE Routine 08/01/2024 7:56 PM EMAIL ADMINISTRATOR POCT GLUCOSE - RUSSO DOCKED DEVICE Routine 08/01/2024 3:53 PM EMAIL ADMINISTRATOR POCT GLUCOSE - RUSSO DOCKED DEVICE Routine 08/01/2024 11:50 AM EMAIL ADMINISTRATOR COMPREHENSIVE METABOLIC PANEL Routine 08/01/2024 7:18 AM EMAIL ADMINISTRATOR CBC W/DIFF AUTOMATED Routine 08/01/2024 7:18 AM EMAIL ADMINISTRATOR POCT GLUCOSE - RUSSO DOCKED DEVICE Routine 08/01/2024 5:39 AM EMAIL ADMINISTRATOR POCT GLUCOSE - RUSSO DOCKED DEVICE Routine 07/31/2024 7:15 PM EMAIL ADMINISTRATOR POCT GLUCOSE - RUSSO DOCKED DEVICE Routine 07/31/2024 4:37 PM EMAIL ADMINISTRATOR POCT GLUCOSE - RUSSO DOCKED DEVICE Routine 07/31/2024 11:05 AM EMAIL ADMINISTRATOR POCT GLUCOSE - RUSSO DOCKED DEVICE Routine 07/31/2024 10:42 AM EMAIL ADMINISTRATOR COMPREHENSIVE METABOLIC PANEL Routine 07/31/2024 7:16 AM EMAIL ADMINISTRATOR CBC W/DIFF AUTOMATED Routine 07/31/2024 7:16 AM EMAIL ADMINISTRATOR POCT GLUCOSE - RUSSO DOCKED DEVICE Routine 07/31/2024 5:31 AM EMAIL ADMINISTRATOR POCT GLUCOSE - RUSSO DOCKED DEVICE Routine 07/30/2024 8:04 PM EMAIL ADMINISTRATOR POCT GLUCOSE - RUSSO DOCKED DEVICE Routine 07/30/2024 3:21 PM EMAIL ADMINISTRATOR POCT GLUCOSE - RUSSO DOCKED DEVICE Routine 07/30/2024 11:14 AM EMAIL ADMINISTRATOR COMPREHENSIVE METABOLIC PANEL Routine 07/30/2024 7:29 AM EMAIL ADMINISTRATOR CBC W/DIFF AUTOMATED Routine 07/30/2024 7:29 AM EMAIL ADMINISTRATOR POCT GLUCOSE - RUSSO DOCKED DEVICE Routine 07/30/2024 6:00 AM EMAIL ADMINISTRATOR POCT GLUCOSE - RUSSO DOCKED DEVICE Routine 07/30/2024 5:31 AM EMAIL ADMINISTRATOR POCT GLUCOSE - RUSSO DOCKED DEVICE Routine 07/29/2024 8:05 PM EMAIL ADMINISTRATOR POCT GLUCOSE - RUSSO DOCKED DEVICE Routine 07/29/2024 2:11 PM EMAIL ADMINISTRATOR XR CHEST PORTABLE Today 07/29/2024 1:2 5 PM EMAIL ADMINISTRATOR POCT GLUCOSE - RUSSO DOCKED DEVICE Routine 07/29/2024 10:12 AM EMAIL ADMINISTRATOR COMPREHENSIVE METABOLIC PANEL Routine 07/29/2024 7:11 AM EMAIL ADMINISTRATOR CBC W/DIFF AUTOMATED Routine 07/29/2024 7:11 AM EMAIL ADMINISTRATOR POCT GLUCOSE - RUSSO DOCKED DEVICE Routine 07/29/2024 5:56 AM EMAIL ADMINISTRATOR POCT GLUCOSE - RUSSO DOCKED DEVICE Routine 07/28/2024 7:47 PM EMAIL ADMINISTRATOR POCT GLUCOSE - RUSSO DOCKED DEVICE Routine 07/28/2024 3:04 PM EMAIL ADMINISTRATOR EEG ROUTINE Routine 07/28/2024 11:37 AM EMAIL ADMINISTRATOR POCT GLUCOSE - RUSSO DOCKED DEVICE Routine 07/28/2024 10:53 AM EMAIL ADMINISTRATOR EEG ROUTINE Routine 07/28/2024 6:03 AM EMAIL ADMINISTRATOR POCT GLUCOSE - RUSSO DOCKED DEVICE Routine 07/28/2024 5:59 AM EMAIL ADMINISTRATOR COMPREHENSIVE METABOLIC PANEL Routine 07/28/2024 4:40 AM EMAIL ADMINISTRATOR CBC W/DIFF AUTOMATED Routine 07/28/2024 4:40 AM EMAIL ADMINISTRATOR HEMOGLOBIN, GLYCOSYLATED Routine 07/10/2024 7:00 AM EMAIL ADMINISTRATOR LIPID PANEL Routine 07/07/2024 3:34 AM EMAIL ADMINISTRATOR COLONOSCOPY GENERIC (SCAN ORDER) Routine 05/31/2018 from Last 3 Months or Most Recently Relevant to Health Maintenance Results * (ABNORMAL) POCT glucose (09/05/2024 4:02 PM CDT) Only the most recent of31 resultswithin the time period is included. GLUCOSE POC 184(H) 70 - 99 MG/DL 09/05/2024 4:04 PM [address] [facility] 09/05/2024 4:02 PM CDT us Zhanna Reid MD POCT ORDERABLES - DEVICE Fi nal Result [facility] [address] [place] [address], * Blood gas, venous (09/05/2024 2:30 PM CDT) PH VENOUS 7.42 7.32 - 7.43 09/05/2024 2:43 PM [address] [facility] PCO2 VENOUS 37.0 MMHG 09/05/2024 2:43 PM CD[address] [facility] Comment:NO REFERENCE RANGE H BEEN ESTABLISHED PO2 VENOUS 45.0 MM HG 09/05/2024 2:43 PM CD[address] [facility] Comment:NO REFERENCE RANGE H BEEN ESTABLISHED TOTAL CO2 VENOUS 25.1 22.0 - 26.0 MMOL/L 09/05/2024 2:43 PM [address] [facility] BASE DEFICIT VENOUS 0.2 MMOL/L 09/05/2024 2:43 PM CD[address] [facility] Comment:NO REFERENCE RANGE H BEEN ESTABLISHED O2 SAT VENOUS 82 % 09/05/2024 2:43 PM CD[address] [facility] Comment:NO REFERENCE RANGE H BEEN ESTABLISHED BICARB VENOUS 24.0 22.0 - 29.0 MMOL/L 09/05/2024 2:43 PM CDT [facility] O2 ADMIN VENOUS ROOM AIR 2:30 PM [address] [facility] 09/05/2024 2:30 PM CDT us Zhanna Reid MD LABORATORY Final Resul t [facility] [facility] [address] [id number], * (ABNORMAL) COMPREHENSIVE METABOLIC PANEL (09/05/2024 2:30 PM CDT) Only the most recent of8 resultswithin the time period is included. SODIUM S/P/B 136 136 - 145 MMOL/L 09/05/2024 2:53 PM CDT [facility] POTASSIUM S/P/B 3.6 3.5 - 5.1 MMOL/L 09/05/2024 2:53 PM CDT [facility] CHLORIDE S/P/B 99 98 - 107 MMOL/L 09/05/2024 2:53 PM CDT [facility] CO2 24.6 21.0 - 32.0 MMOL/L 09/05/2024 2:53 PM CDT [facility] GLUCOSE 486(H) 70 - 99 MG/DL 09/05/2024 2:53 PM CDT [facility] Comment: FASTING GLUCOSE 100 TO 125 MG/DL IS CONSISTENT WITH IMPAIRED FASTING GLUCOSE. FASTING GLUCOSE >125 MG/DL IS CONSISTENT WITH DIABETES. RANDOM GLUCOSE >200 MG/DL WITH HYPERGLYCEMIC SYMPTOMS IS CONSISTENT WITH DIABETES. PER ADA GUIDELINES BUN 35(H) 6 - 24 MG/DL 09/05/2024 2:53 PM CDT [facility] CREATININE S/P/B 1.77(H) 0.70 - 1.30 MG/DL 09/05/2024 2:53 PM CDT [facility] CALCIUM S/P/B 8.4 8.4 - 10.5 MG/DL 09/05/2024 2:53 PM CDT [facility] BILIRUBIN TOTAL S/P/B 0.4 0.2 - 1.0 MG/DL 09/05/2024 2:53 PM CDT [facility] Comment: THIS ASSAY IS NOT RECOMMENDED FOR PATIENTS UNDERGOING TREATMENT WITH ELTROMBOPAG DUE TO THE POTENTIAL FOR FALSELY ELEVATED RESULTS. ALKALINE PHOSPHATASE S/P/B 113 45 - 115 U/L 09/05/2024 2:53 PM CDT [facility] AST 20 15 - 37 U/L 09/05/2024 2:53 PM T [facility] ALT 32 16 - 63 U/L 09/05/2024 2:53 PM CDT [facility] TOTAL PROTEIN S/P/B 6.4 6.4 - 8.2 G/DL 09/05/2024 2:53 PM T [facility] ALBUMIN S/P/B 3.1(L) 3.4 - 5.0 G/DL 09/05/2024 2:53 PM T [facility] ANION GAP 12.4 5.0 - 15.0 MMOL/L 09/05/2024 2:53 PM T [facility] OSMOLALITY (CALC) 312 MOSM/KG 025 2:53 PM T [facility] Comment:REFERENCE RANGE NOT ESTABLISHED GFR ESTIMATE 41(L) >89 ML/MIN/1. 73 M2 09/05/2024 2:53 PM CD[address] [facility] GFR NOTES GFR REFERENCE S: 09/05/2024 2:53 PM CD[address] [facility] Comment: THE ESTIMATED GFR IS CALCULATED USING THE 2020 CKD-EPI EQUATION. THE FOLLOWING CATEGORIES FOR GRADING RENAL FUNCTION ARE RECOMMENDED BY THE INTERNATIONAL SOCIETY OF NEPHROLOGY (KDIGO 2012 CLINICAL PRACTICE GUIDELINE). G1,NORMAL OR HIGH: >89 ml/min/1.73 m2 G2,MILDLY DECREASED: 60-89 ml/min/1.73 m2 G3A,MILDLY TO MODERATELY DECREASED: 45-59 ml/min/1.73 m2 G3B,MODERATELY TO SEVERELY DECREASED: 30-44 ml/min/1.73 m2 G4,SEVERELY DECREASED: 15-29 ml/min/1.73 m2 G5,KIDNEY FAILURE: <15 ml/min/1.73 m2 09/05/2024 2:30 PM CDT us Zhanna Reid MD LABORATORY Final Resul t [facility] [address] [place] [address], * (ABNORMAL) CBC W/DIFF AUTOMATED (09/05/2024 2:30 PM CDT) Only the most recent of8 resultswithin the time period is included. WBC 12.36(H) 4.00 - 10.80 x10'3/uL 09/05/2024 2:38 PM CD[address] [facility] RBC 2.81(L) 4.50 - 6.10 x10'6/uL 09/05/2024 2:38 PM CD[address] [facility] HGB 8.4(L) 13.0 - 18.0 G/DL 09/05/2024 2:38 PM CD[address] [facility] HCT 25.7(L) 37.0 - 52.0 % 09/05/2024 2:38 PM CD[address] [facility] MCV 91.5 78.0 - 100.0 FL 09/05/2024 2:38 PM CDT [facility] MCH 29.9 27.0 - 31.0 PG 09/05/2024 2:38 PM CD[address] [facility] MCHC 32.7(L) 33.0 - 36.0 G/DL 09/05/2024 2:38 PM CD[address] [facility] RDW 14.6(H) 11.5 - 14.5 % 09/05/2024 2:38 PM CD[address] [facility] PLT 202 150 - 350 x10'3/uL 09/05/2024 2:38 PM CDT [facility] MPV 11.8(H) 7.4 - 10.4 FL 09/05/2024 2:38 PM [address] [facility] CBC COMMENT NORMAL REFERENCE RANGE NOT ESTABLISHED FOR THE PROPORTIONAL LEUKOCYTE DIFFERENTIAL. 09/05/2024 2:[address] [facility] NEUTROPHILS % 86.0 % 09/05/2024 2:38 PM [address] [facility] LYMPHOCYTES % 3.8 % 09/05/2024 2:38 PM [address] [facility] MONOCYTES % 6.0 % 09/05/2024 2:38 PM [address] [facility] EOSINOPHILS % 3.2 % 09/05/2024 2:38 PM [address] [facility] BASOPHILS % 0.4 % 09/05/2024 2:38 PM CD[address] [facility] IMMATURE GRANS % 0.6 % 09/06/19 2:38 PM [address] [facility] NRBC % 0.0 % 09/05/2024 2:38 PM CDT [facility] ABS. NEUTROPHILS 10.63(H) 1.60 - 8.30 x10'3/uL 09/05/2024 2:38 [address] [facility] ABS. LYMPHOCYTES 0.47(L) 0.80 - 4.70 x10'3/uL 09/05/2024 2:38 PM [address] [facility] ABS. MONOCYTES 0.74 0.00 - 1.50 x10'3/uL 09/05/2024 2:38 PM [address] [facility] ABS. EOSINOPHILS 0.40 0.00 - 0.40 x10'3/uL 09/05/2024 2:38 PM [address] [facility] ABS. BASOPHILS 0.05 0.00 - 0.20 x10'3/uL 09/05/2024 2:38 PM [address] [facility] ABS. IMMATURE GRANULOCYTES 0.07(H) 0.00 - 0.03 x10'3/uL 09/05/2024 2:[address] [facility] ABS. NUCLEATED RBC'S 0.00 0.00 - 0.01 x10'3/uL 09/05/2024 2:[address] [facility] 09/05/2024 2:30 PM CDT us Zhanna Reid MD LABORATORY Final Resul t [facility] [address] [place] [address], * XR CHEST PORTABLE (07/29/2024 1:25 PM EMAIL ADMINISTRATOR) Anatomical Region Laterality Modality Chest Radiographic Rozina ging 07/29/2024 1:38 PM EMAIL ADMINISTRATOR Impressions 07/29/2024 1:38 PM EMAIL ADMINISTRATOR IMPRESSION: Stable chest, no acute findings. Ordered By: ELODIA WOLFE Interpreted By: Brooks Gresham MD, 07/29/2024 1:38 PM Narrative 07/29/2024 1:38 PM EMAIL ADMINISTRATOR [address] [address] SINGLE VIEW OF THE CHEST Clinical history: Shortness of breath Comparison: July 26, 2024 A single view of the chest demonstrates borderline cardiomegaly which is stable. The pulmonary vessels are normally distributed. The Lungs are clear. No consolidations or effusions are seen. Procedure Note Brooks Gresham MD - 07/29/2024 [facility] [address] [place], [place] [address] SINGLE VIEW OF THE CHEST Clinical history: Shortness of breath Comparison: July 26, 2024 A single view of the chest demonstrates borderline cardiomegaly which isstable. The pulmonary vessels are normally distributed. The Lungs areclear. No consolidations or effusions are seen. IMPRESSION: Stable chest, no acute findings. Ordered By: ELODIA WOLFE Interpreted By: Brooks Gresham MD, 07/29/2024 1:38 PM us Elodia Wolfe MD GENERAL IMAGING Final Result * EEG (07/28/2024 11:37 AM EMAIL ADMINISTRATOR) Narrative [facility] - 07/28/2024 11:37 AM EMAIL ADMINISTRATOR Tho Lilly MD 07/28/2024 11:37 AM Date [...] ORDERABLES Final R esult Performing Organization Address [facility] Co de Phone Number [facility] [address] [place] [address], * (ABNORMAL) HEMOGLOBIN, GLYCOSYLATED (07/10/2024 7:00 AM EMAIL ADMINISTRATOR) HGB A1C 8.4(H) <5.7 % 07/10/2024 10:01 AM [facility] Comment: ADA GUIDELINES 2010 5.7 TO 6.4% INCREASED RISK OF DIABETES > OR = 6.5% CONSISTENT WITH DIABETES ESTIMATED AVG GLUCOSE 194 mg/dL 07/10/2024 10:01 AM [facility] 07/10/2024 7:00 AM EMAIL ADMINISTRATOR Jennifer Sutton MD LABORATORY Final Result Performing Organization Address [facility] Co de Phone Number [facility] [address] [place] [address], [place] [phone] * LIPID PANEL (07/07/2024 3:34 AM EMAIL ADMINISTRATOR) CHOLESTEROL 125 <200 MG/DL 07/07/2024 4:48 AM EMAIL ADMINISTRATOR [facility] TRIGLYCERIDES 119 <150 MG/DL 07/07/2024 4:48 AM [facility] HDL 52 >40.0 MG/DL 07/07/2024 4:48 AM EMAIL ADMINISTRATOR [facility] LDL (CALCULATED) 49 <100 MG/DL 07/07/19 4:48 AM [facility] NON HDL CHOLESTEROL 73 <130 MG/DL 07/07 4:48 AM [facility] CHOL/HDL RATIO 2.4 0.0 - 4.5 07/07/2024 4:48 AM [facility] VLDL CALCULATION 24 5 - 55 MG/DL 07/07/2024 4:48 AM [facility] LIPID INTERPRETATION 07/07/2024 4:48 AM [facility] Comment: NIH CONCENSUS REPORT RECOMMENDATIONS: ADULT CHILD LOW RISK: CHOLESTEROL <200 <170 TRIGLYCERIDE <150 --- HDL >=60 --- LDL <100 <110 BORDERLINE: CHOLESTEROL 200-239 170-199 TRIGLYCERIDE 150-199 --- HDL 40-59 --- LDL 100-159 110-129 HIGH RISK: CHOLESTEROL >=240 >=200 TRIGLYCERIDE >=200 --- HDL <40 --- LDL >=160 >=130 07/07/2024 3:34 AM EMAIL ADMINISTRATOR us Denny Spaulding MD LABORATORY Final Resul t [facility] [address] [place] [address], * COLONOSCOPY (05/31/2018) us Documents Scanned SCANNING Final Result from Last 3 Months or Most Recently Relevant to Health Maintenance Insurance AETNA AETNA Advance Directives * Full Code (Latest [...] 7:16 PM 05/23/2022 2:52 PM Care Teams Hole Digger Operator Relationship Specialty Start Date End Date Adrienne Marin MD [address] [place] [address] PCP - General INTERNAL MEDICINE 05/09/24 Gladys Sanchez MD [place] [employer] CARDIOVASCULAR DISEASE 05/28/19
[2024-10-25 20:22] LABS: Partial Thromboplastin Time 26.9 Sec (23.9-30.70); Prothrombin Time 11.3 Seconds (9.50-12.1)
[2024-10-25 20:23] LABS: Alanine Aminotransferase 45 U/L (16-63); Albumin Level 3.5 g/dL (3.4-5.0); Alkaline Phosphatase 136 U/L (46-116); Anion Gap 15 mmol/L (4-12); Aspartate Amino Transferase 18 U/L (15-37); Bilirubin,Total 1.1 mg/dL (0.00-1.00); Blood Urea Nitrogen 30 mg/dL (7-18); Calcium 8.8 mg/dL (8.5-10.1); Carbon Dioxide 23 mmol/L (21-32); Chloride 106 mmol/L (98-108); Estimated Glomerular Filt Rate 37; Lipase 8 U/L (16-77); Magnesium 1.7 mg/dL (1.8-2.4); NT Pro B Type Natriuretic Pept 5148 pg/mL (0-125); Osmolality Calculated 323 mOsm/kg (285-295); Potassium 3.4 mmol/L (3.5-5.1); Sodium 144 mmol/L (136-145); Uric Acid 7.3 mg/dL (3.5-7.2)
[2024-10-25] MEDS: hydrALAZINE HCL 20 MG/ML VIAL 10 MG IV PUSH (20:25)
[2024-10-25 20:26] LABS: Glucose 436 mg/dL (70-99); Troponin I 344.4 ng/L (0.00-60.4)
[2024-10-25 20:30] LABS: Add Urine Microscopic? YES; Appearance Urine Clear (Clear); Bilirubin Urine Negative (Negative); Blood Urine Negative (Negative); Color Urine Light Yellow (Yellow); Glucose Urine UA 3+ (Negative); Ketones Urine 1+ (Negative); Leukocyte Esterase Ur Negative LEU/UL (Negative); Nitrate Urine Negative (Negative); Protein Urine 3+ (Negative); Urobilinogen Urine 0.2 mg/dL (0.2-1.0); pH Urine 5.5 (5.0-8.0)
--- NOTE | 2024-10-25 20:30 | PC.NURSE ---
Pts and daughter in room at bedside and condition status updated. Pt more alert when daughter walked in room and able to follow simple commands and answer some questions. Continuing to monitor, orders received.
[2024-10-25 20:35] LABS: Amorphous Sediment Urine Few
[2024-10-25 20:36] LABS: Mucus Urine Few /lpf
[2024-10-25] MEDS: ISOSORBIDE MONONITRATE 60 MG TAB.ER.24H PO (20:56)
[2024-10-25] MEDS: POTASSIUM CHLORIDE 20 MEQ ER TABLET 40 MEQ PO (21:00)
[2024-10-25] MEDS: INSULIN HUMAN REGULAR (*BKC) 1,000 UNITS/10 ML VIAL 8 UNITS IV PUSH ×2 (21:12→23:21)
[2024-10-25 21:13] LABS: Base Excess ABG -5.9 mmol/L (0-2); HCO3 ABG 19.4 mmol/L (23-29); Oxygen Saturation ABG 80.6 % (95-97); Oxyhemoglobin 79.8 % (94-100); PCO2 ABG 37.5 mmHg (35-45); PO2 ABG 51.3 mmHg (75-85); pH ABG 7.33 (7.35-7.45)
[2024-10-25 21:16] LABS: Device ROOM AIR; Modified Allen's Test Pass; Site Drawn LEFT RADIAL
[2024-10-25] MEDS: PIPERACILLN/TAZ 3.375GM/NS50ML 3.375 GM/50 ML BAG IVPB (21:25)
--- NOTE | 2024-10-25 21:30 | PC.NURSE ---
Pts ABG's back and RT in room placing pt on bipap, settings of 10/5 w/ rate of 12 on machine set. Pt tolerating well. VSS continuing to monitor and await CT results.
[2024-10-25] MEDS: AZITHROMYCIN 500 MG/NS 250 ML 500 MG/250 ML BAG 250 MG IVPB (21:33)
[2024-10-25] MEDS: HEPARIN SODIUM 5,000 UNITS/ML VIAL 4000 UNITS IV PUSH (21:52)
[2024-10-25] MEDS: HEPARIN SOD/D5W 100 UNITS/ML 25,000 UNITS/250 ML BAG 9 UNITS IV CONT (21:54)
[2024-10-25 21:57] LABS: Reflex Lactic Acid Yes or No Add Lactic
[2024-10-25 22:02] LABS: Influenza A QL RT-PCR Negative (Negative); Influenza B QL RT-PCR Negative (Negative); RSV RNA, RT-PCR Negative (Negative); SARS-CoV-2 RNA PCR Negative (Negative)
[2024-10-25 22:24] LABS: D Dimer 0.76 mg/L (0.19-0.50)
[2024-10-25] MEDS: VANCOMYCIN 2,000 MG/NS 500 ML 2,000 MG/500 ML BAG 250 MG IVPB (22:34)
[2024-10-25 22:42] LABS: Lactic Acid 2.1 mmol/L (0.4-2.0)
--- NOTE | 2024-10-25 23:15 | PC.NURSE ---
Pt resting and report given to Martin at [facility]. Awaiting EMS to arrive for transfer.
[2024-10-25 23:43] LABS: MRSA (PCR) NOT DETECTED (NOT DETECTE)
--- NOTE | 2024-10-27 14:24 | PC.NURSE ---
PRELIMINARY BLOOD CULTURE REPORT; NO GROWTH TO DATE.
[2024-10-28 00:08] LABS: Glucose Point of Care 428 mg/dl (65-105)
--- NOTE | 2024-10-28 12:13 | PC.NURSE ---
preliminary blood culture reviewed. staph epidermis isolated. awaiting susceptibility report
== END 2024-10-25 23:50 | disposition short-term general hospital (02) ==
PROVIDERS: Emergency Provider Internal Medicine Critical Care Medicine; PCP Internal Medicine
DX: I21.4 Non-ST elevation (NSTEMI) myocardial infarction (principal); J96.00 Acute respiratory failure, unspecified whether with hypoxia or hypercapnia; I11.0 Hypertensive heart disease with heart failure; N18.32 Chronic kidney disease, stage 3b; I50.23 Acute on chronic systolic (congestive) heart failure; E11.22 Type 2 diabetes mellitus with diabetic chronic kidney disease; I25.10 Atherosclerotic heart disease of native coronary artery without angina pectoris; E78.5 Hyperlipidemia, unspecified; Z20.822 Contact with and (suspected) exposure to COVID-19
CPT/HCPCS: 36415; 36600; 51702; 70450; 71045; 80053; 81001; 82805; 82948; 83605; 83690; 83735; 83880; 84484; 84550; 85025; 85380; 85610; 85730; 87040; 87637; 87641; 93005; 96365; 96366; 96367; 96368; 96375; 96376; 99285; A9270; J0360; J0456; J1644; J1815; J1938; J2270; J2305; J2405; J2543; J3370

== ENCOUNTER 2024-11-05 14:47 | Emergency (ER) | payer MEDICARE, SELFPAY ==
--- NOTE | ~2024-11-05 | XR_ITS ---
XR chest 1V portable Ordering provider: Duane Jesus MD History: 74 years Male with . pneumonia . Comparison: October 25, 2024 FINDINGS: MEDIASTINUM: The cardiac silhouette is slightly enlarged. LUNGS: No effusions or pneumothorax. Opacification in the right upper and lower lobe and left lower l obe suggestive of pneumonia. OTHER: No free air under the diaphragm. IMPRESSION: Bilateral pneumonia. Reviewed, dictated and finalized at location A. IMPRESSION: Bilateral pneumonia.
[2024-11-05 14:50] VITALS: BP 132/53; PULSE 60; RESP 20; TEMP 37.1; O2SAT 93
--- OUTSIDE RECORDS SUMMARY | 2024-11-05 14:52 | XMS_ITS | Encounter Summary ---
Author Organization [facility] Address [facility] [place] [address] Care Team Providers Care Rn Internal Medicine Name Role Phone Adrian Lee MD Primary Care Provider [phone] Gladys Sanchez MD Unavailable [phone] Adrienne Mrain MD Primary Care Provider [phone] Anna Landry RN Unavailable Unavailable Anna Landry RN Unavailable Unavailable Encounter Details Date Type Department Care Team (Late st Contact Info) Description 06/20/2022 Hospital Follow-up Call [facility] [address] [place] [address] Asia Weiner, RN Social History [...] Sex Assigned at Male 07/08/2024 7:30 AM MANUAL ARTS THERAPY TEACHER Legal Sex Male 8:56 PM CDT Gender Identity Male 07/08/2024 7:30 AM MANUAL ARTS THERAPY TEACHER Sexual Orientation Straight 07/08/2024 7: 30 AM MANUAL ARTS THERAPY TEACHER COVID-19 Exposure Response Date Recorded In the last 10 days, have yo u been in contact with someone who was confirmed or suspected to have Coronavirus/COVID-19? No / Unsure 06/14/2022 6:51 PM MANUAL ARTS THERAPY TEACHER documented as of this encounter Functional Status * RETIRED Are you deaf or do you have serious difficulty hearing Answer Date of Assessment Author Status Yes 06/14/2022 7:00 PM MANUAL ARTS THERAPY TEACHER Activ e * RETIRED Are you blind or do you have serious difficulty seeing, even when wearing glasses? Answer Date of Assessment Author Status No 06/14/2022 7:00 PM MANUAL ARTS THERAPY TEACHER Activ e * Do you have serious difficulty walking or climbing stairs? Answer Date of Assessment Author Status No 06/14/2022 7:00 PM MANUAL ARTS THERAPY TEACHER Cathy Giles RN Active * Do you have difficulty dressing or bathing? Answer Date of Assessment Author Status No 06/14/2022 7:00 PM MANUAL ARTS THERAPY TEACHER Cathy Giles RN Active * Because of a physical, mental, or emotional condition, do you have difficulty doing errands alone such as visiting a doctor's office or shopping? Answer Date of Assessment Author Status No 06/14/2022 7:00 PM MANUAL ARTS THERAPY TEACHER Cathy Giles RN Active documented as of this encounter Mental Status * Because of a physical, mental, or emotional condition, do you have serious difficulty concentrating, remembering, or making decisions? Answer Entry Date Author Status No 06/14/2022 7:00 PM MANUAL ARTS THERAPY TEACHER Cathy Giles RN Active documented in this encounter Plan of Treatment Upcoming Encounters Date Type Department Care Team (Late st Contact Info) Description 11/07/2024 1:30 PM CDT Appointment [facility] [address] [facility] [place] [address] Adrienne Marin MD [address] [place] [address] 11/07/2024 2:40 PM CDT Office Visit [facility] Diabetes and Endocrinology - [address] [phone] Hannah Garrison MD [address] [place], [place] [address] [address] 11/10/2024 1:30 PM CDT Appointment [facility] [place] [address] Adrienne Marin MD [address] [place] [phone] 11/12/2024 1:30 PM CDT Appointment [facility] [place] [address] Adrienne Marin MD [address] [place] [phone] 11/14/2024 1:30 PM CDT Appointment [facility] [place] [address] Adrienne Marin MD [address] [place] [phone] 11/18/2024 2:45 PM CDT Office Visit [facility] [address] [place] [address] Anders Palacio, COURTNEY Three [facility] [address] [place] [address] 11/19/2024 1:30 PM CDT Appointment [facility] [place] [address] Adrienne Marin MD [address] [place] [phone] 11/21/2024 1:30 PM CDT Appointment [facility] [place] [address] Adrienne Marin MD [address] [place] [address] 11/24/2024 1:30 PM CDT Appointment [facility] [address] [facility] [place] [address] Adrienne Marin MD [address] [place] [phone] 11/26/2024 1:30 PM CDT Appointment [facility] [address] [place] [address] [address] [place] [address] Adrienne Marin MD [address] [place] [address] 12/30/2024 11:30 AM CDT Office Visit [facility] [place] [address] [place] [address] Roc Fulton MD Three [facility]. [address] [address] [place] [address] 02/03/2025 11:00 AM CDT Office Visit [facility] Medical Group [facility] - [facility] [address] [facility], [address] [place] [phone] Nathan Lechuga MD [address] [place], [place] [phone] documented as of this encounter Goals Goal Patient Goal Type Associated Problems Recent Progress Patient-Stated? Author Patient will return to prior living situation and remain independent in ADLs upon discharge from hospital General No Diana Todd, installation helper - family caregiver with be involved in care transitions and discharge planning General No Nicole Cole RN Safety Patient/family will have appropriate support at home upon discharge [facility] Ayleen Goyal, GIN CLERK documented as of this encounter Visit Diagnoses Not on filedocumented in this encounter Additional Health Concerns Infection Onset Date Last Indicated Resolved Time Influenza - Seasonal 05/23/2022 05/23/2022 023 12:34 AM MANUAL ARTS THERAPY TEACHER COVID-19 Rule Out 05/13/2023 05/13/2023 05/13/2023 4:14 PM MANUAL ARTS THERAPY TEACHER COVID-19 Rule Out 05/13/2023 05/13/2023 05/14/2023 1:35 AM MANUAL ARTS THERAPY TEACHER COVID-19 Rule Out 07/08/2023 07/08/2023 07/08/2023 5:34 PM MANUAL ARTS THERAPY TEACHER COVID-19 Rule Out 07/07/2024 07/07/2024 07/07/2024 7:39 AM MANUAL ARTS THERAPY TEACHER Assessment Noted Time PHQ-9 Depression Total Score: 0 11/19/19 22 3:11 PM CDT documented as of this encounter Care Teams Rn Internal Medicine Relationship Specialty Start Date End Date Adrian Lee MD [address] [place] [phone] PCP - General FAMILY PRACTICE 04/22/18 05/08/24 Adrienne Marin MD [address] [place] [phone] PCP - General INTERNAL MEDICINE 05/09/24 Gladys Sanchez MD [address] [place] [phone] [place] Product Test Engineer CARDIOVASCULAR DISEASE 05/28/19 Anna Landry slag skimmer (Ambulatory) REGISTERED NURSE 10/29/24 11/02/24 Anna Landry RN Care Manager (Ambulatory) REGISTERED NURSE 11/03/24 documented as of this encounter
--- OUTSIDE RECORDS SUMMARY | 2024-11-05 14:52 | XMS_ITS | Encounter Summary ---
Author Organization [facility] Address [facility]2 [place] [address] Care Team Providers Care Inside Sales Executive Name Role Phone Gladys Sanchez MD Unavailable [phone] Adrienne Marin MD Primary Care Provider [phone] Anna Landry RN Unavailable Unavailable Anna Landry RN Unavailable Unavailable Encounter Details Date Type Department Care Team (Late st Contact Info) Description 10/13/2024 WineShop Message Enc [facility] Medical Group Call Center [address] [place] [phone] [facility] Provider levETIRAcetam (KEPPRA) 750 MG tablet Social History Tobacco Use Types Packs/Day Years Used Date Smoking Tobacco: Never Passive Smoke Exposure: Never Smokeless Tobacco: Never Comments:non-smoker Alcohol Use Standard Drinks/Week Comments No 0 (1 standard drink = 0.6 oz pur e alcohol) [facility] Utilities Answer Date Recorded In the past 12 months has [employer], oil, or water [employer] threatened to shut off services in your [...] any time in the past 12 m [facility], were you homeless or living in a care home (including now)? No 07/15/2024 Sex and Gender Information Value Date Recorded Sex Assigned at Male 07/08/2024 7:30 AM REVENUE DIRECTOR Legal Sex Male 8:56 PM CDT Gender Identity Male 07/08/2024 7:30 AM REVENUE DIRECTOR Sexual Orientation Straight 07/08/2024 7: 30 AM REVENUE DIRECTOR documented as of this encounter Functional [...] Info) Description 11/07/2024 1:30 PM CDT Appointment [place] [facility] [place] [address] Adrienne Marin MD [address] [place] [address] 11/07/2024 2:40 PM CDT Office Visit [facility] Medical Group Diabetes and Endocrinology - Adrian [address] [place] [phone] Hannah Garrison MD [address] [place] [address] 11/10/2024 1:30 PM CDT Appointment [facility] [address] [place] [address] Adrienne Marin MD [address] [place] [phone] 11/12/2024 1:30 PM CDT Appointment [place] [facility] [place] [address] Adrienne Marin MD [address] [place] [phone] 11/14/2024 1:30 PM CDT Appointment [facility] [facility] [place] [address] Adrienne Marin MD [address] [place] [phone] 11/18/2024 2:45 PM CDT Office Visit [facility] [address] [place], [place] [address] Anders Palacio, COURTNEY Three [facility] [address] [place] [address] 11/19/2024 1:30 PM CDT Appointment [facility] [address] [place] [address] Adrienne Marin MD [address] [place] [phone] 11/21/2024 1:30 PM CDT Appointment [facility] [address] [place] [address] Adrienne Marin MD [address] [place] [phone] 11/24/2024 1:30 PM CDT Appointment [facility] [address] [place] [address] [address] [place] [address] Adrienne Marin MD [address] [place] [phone] 11/26/2024 1:30 PM CDT Appointment [facility] [address] [place] [address] [place] [address] Adrienne Marin MD [address] [place] [phone] 12/30/2024 11:30 AM CDT Office Visit [facility] [address] [place] [address] Roc Fulton MD Three [facility]. [facility] [address] [place] [address] 02/03/2025 11:00 AM CDT Office Visit [facility] Medical Group [facility] 3 [facility], [address] [place] [address] Nathan Lechuga MD 3 [place] [address] documented as of this encounter Goals Goal Patient Goal Type Associated Problems Recent Progress Patient-Stated? Author Patient will return to prior living situation and remain independent in ADLs upon discharge from hospital General No Diana Todd, cushion stuffer - family caregiver with be involved in care transitions and discharge planning General No Nicole Cole, RN Safety Patient/family will have appropriate support at home upon discharge General No Ayleen Garcia, GUARD RANGE documented as of this encounter Visit Diagnoses Not on filedocumented in this encounter Additional Health Concerns Assessment Noted Time PHQ-9 Depression Total Score: 0 11/19/19 22 3:11 PM CDT documented as of this encounter Care Teams Inside Sales Executive Relationship Specialty Start Date End Date Adrienne Marin MD [address] [place] [phone] PCP - General INTERNAL MEDICINE 05/09/24 Gladys Sanchez MD Adrian Supervisor Grinding CARDIOVASCULAR DISEASE 05/28/19 Anna Landry RN Care Manager (Ambulatory) REGISTERED NURSE 10/29/24 11/02/24 Anna Landyr RN Care Manager (Ambulatory) REGISTERED NURSE 11/03/24 documented as of this encounter
--- OUTSIDE RECORDS SUMMARY | 2024-11-05 14:52 | XMS_ITS | Encounter Summary ---
Author Organization [facility] Address [address] [place] [address] Care Team Providers Care Knapsack Sprayer Name Role Phone Adrian Lee MD Primary Care Provider Gladys Sanchez MD Unavailable [phone] Adrienne Marin MD Primary Care Provider [phone] Anna Landry RN Unavailable Unavailable Anna Landry RN Unavailable Unavailable Encounter Details Date Type Department Care Team (Late st Contact Info) Description 05/21/2023 Hospital Follow-up Call [facility] Cardiovascular Care Unit [address] [place] [address] Amanda Ohara, RN Social History Tobacco Use Types Packs/Day Years Used Date Smoking Tobacco: Never Passive Smoke Exposure: Never Smokeless Tobacco: Never Comments:non-smoker Alcohol Use Standard Drinks/Week Comments No 0 (1 standard drink = 0.6 oz pur e alcohol) [facility] Utilities Answer Date Recorded In the past 12 months has e Grade[employer], gas, oil, or water [employer] threatened to shut off services in your [...] place to sleep or slept in a nursing home (including now)? No 05/13/2023 Sex and Gender Information Value Date Recorded Sex Assigned at Male 07/08/2024 7:30 AM FILLING MACHINE OPERATOR Legal Sex Male 8:56 PM CDT Gender Identity Male 07/08/2024 7:30 AM FILLING MACHINE OPERATOR Sexual Orientation Straight 07/08/2024 7: 30 AM FILLING MACHINE OPERATOR documented as of this encounter Functional [...] Info) Description 11/07/2024 1:30 PM CDT [facility] [place] [address] Adrienne Marin MD [address] [place] [phone] 11/07/2024 2:40 PM CDT Office Visit [facility] Medical Group Diabetes and Endocrinology - [address] [phone] Hannah Garrison MD [address] [place] [address] [place], [place] [address] 11/10/2024 1:30 PM CDT Appointment [facility] Re[facility] [address] [place] [address] Adrienne Marin MD [address] [place] [phone] 11/12/2024 1:30 PM CDT Appointment [facility] [address] [place] [address] Adrienne Marin MD [address] [place] [phone] 11/14/2024 1:30 PM CDT Appointment [facility] [place] [address] Adrienne Marin MD [address] [place] [phone] 11/18/2024 2:45 PM CDT Office Visit [facility] THREE [facility] [address] [place] [address] Anders Palacio NP Three [facility] [address] [place] [address] 11/19/2024 1:30 PM CDT Appointment [facility] [place] [address] Adrienne Marin MD [address] [place] [phone] 11/21/2024 1:30 PM CDT Appointment [facility] [place] [address] Adrienne Marin MD [address] [place] [phone] 11/24/2024 1:30 PM CDT App[facility] [place] [place] [address] Adrienne Marin MD [address] [place] [phone] 11/26/2024 1:30 PM CDT Appointment [facility] [address] [facility] [place] [address] Adrienne Marin MD [address] [place] [phone] 12/30/2024 11:30 AM CDT Office [facility] THREE [facility] [place] [address] [place] [address] Roc Fulton MD Three [facility]. [place] [address] [place] [address] 02/03/2025 11:00 AM CDT Office Visit [facility] Medical Group Multispecialty Care - [facility] 3 [facility], [address] [place] [phone] Nathan Lechuga MD 3 [place] [address] documented as of this encounter Goals Goal Patient Goal Type Associated Problems Recent Progress Patient-Stated? Author Patient will return to prior living situation and remain independent in ADLs upon discharge from hospital General No Diana Todd, assistant golf coach - family caregiver with be involved in care transitions and discharge planning General No Nicole Cole RN Safety Patient/family will have appropriate support at home upon discharge General No Ayleen Garcia, ADMINISTRATIVE DIETITIAN documented as of this encounter Visit Diagnoses Not on filedocumented in this encounter Additional Health Concerns Infection Onset Date Last Indicated Resolved Time COVID-19 Rule Out 07/08/2023 07/08/2023 07/08/2023 5:34 PM FILLING MACHINE OPERATOR COVID-19 Rule Out 07/07/2024 07/07/2024 07/07/2024 7:39 AM FILLING MACHINE OPERATOR Assessment Noted Time PHQ-9 Depression Total Score: 0 11/19/19 22 3:11 PM CDT documented as of this encounter Care Teams Knapsack Sprayer Relationship Specialty Start Date End Date Adrian Lee MD [address] [place] [phone] PCP - General FAMILY PRACTICE 04/22/18 05/08/24 Adrienne Marin MD [address] [place] [address] PCP - General INTERNAL MEDICINE 05/09/24 Gladys Sanchez MD [address] [place] [address] [place] Identity Access Management Architect CARDIOVASCULAR DISEASE 05/28/19 Anna Landry, blower room attendant (Ambulatory) REGISTERED NURSE 10/29/24 11/02/24 Anna Landry, blower room attendant (Ambulatory) REGISTERED NURSE 11/03/24 documented as of this encounter
--- OUTSIDE RECORDS SUMMARY | 2024-11-05 14:52 | XMS_ITS | Encounter Summary ---
Author Organization [facility] Address [facility] [place] [address] Care Team Providers Care Larriman Helper Name Role Phone Adrian Lee MD Primary Care Provider [phone] Gladys Sanchez MD Unavailable Adrienne Marin MD Primary Care Provider [phone] Anna Landry RN Unavailable Unavailable Anna Landry RN Unavailable Unavailable Encounter Details Date Type Department Care Team (Late st Contact Info) Description 07/25/2022 Abstract [facility] BUSINESS OFFICE [address] [place] [id number] Abstract, Doc Cikda Social History Tobacco Use [...] Sex Assigned at Male 07/08/2024 7:30 AM FISHERIES DIRECTOR Legal Sex Male 8:56 PM CDT Gender Identity Male 07/08/2024 7:30 AM FISHERIES DIRECTOR Sexual Orientation Straight 07/08/2024 7: 30 AM FISHERIES DIRECTOR COVID-19 Exposure Response Date Recorded In the last 10 days, have yo u been in contact with someone who was confirmed or suspected to have Coronavirus/COVID-19? No / Unsure 07/28/2022 2:26 PM FISHERIES DIRECTOR documented as of this encounter Functional Status * RETIRED Are you deaf or do you have serious difficulty hearing Answer Date of Assessment Author Status Yes 06/14/2022 7:00 PM FISHERIES DIRECTOR Activ e * RETIRED Are you blind or do you have serious difficulty seeing, even when wearing glasses? Answer Date of Assessment Author Status No 06/14/2022 7:00 PM FISHERIES DIRECTOR Activ e * Do you have serious difficulty walking or climbing stairs? Answer Date of Assessment Author Status No 06/14/2022 7:00 PM FISHERIES DIRECTOR Cathy Giles RN Active * Do you have difficulty dressing or bathing? Answer Date of Assessment Author Status No 06/14/2022 7:00 PM FISHERIES DIRECTOR Cathy Giles RN Active * Because of a physical, mental, or emotional condition, do you have difficulty doing errands alone such as visiting a doctor's office or shopping? Answer Date of Assessment Author Status No 06/14/2022 7:00 PM FISHERIES DIRECTOR Cathy Giles RN Active documented as of this encounter Mental Status * Because of a physical, mental, or emotional condition, do you have serious difficulty concentrating, remembering, or making decisions? Answer Entry Date Author Status No 06/14/2022 7:00 PM FISHERIES DIRECTOR Cathy Giles RN Active documented in this encounter Plan of Treatment Upcoming Encounters Date Type Department Care Team (Late st Contact Info) Description 11/07/2024 1:30 PM CDT Appointment [place] [id number] [place] [address] Adrienne Marin MD [address] [place] [phone] 11/07/2024 2:40 PM CDT Office Visit [facility] Medical Group Diabetes and Endocrinology - [address] [phone] Hannah Garrison MD [address] [place] [address] [place] [address] 11/10/2024 1:30 PM CDT Appointment [place] [facility] [address] [place] [address] [place] [address] Adrienne Marin MD [address] [place] [phone] 11/12/2024 1:30 PM CDT Appointment [place] [facility] [address] [place] [address] [place] [address] Adrienne Marin MD [address] [place] [phone] 11/14/2024 1:30 PM CDT Appointment [place] [facility] [address] [place] [address] [place] [address] Adrienne Marin MD [address] [place] [phone] 11/18/2024 2:45 PM CDT Office Visit [facility] THREE [facility] [address] [place], [place] [phone] Anders Palacio, COURTNEY Three [facility] [address] [place], [place] [address] 11/19/2024 1:30 PM CDT Appointment [place] [facility] [address] [place] [address] [address] [place] [address] Adrienne Marin MD [address] [place] [phone] 11/21/2024 1:30 PM CDT Appointment [place] [facility] [place] [address] Adrienne Marin MD [address] [place] [phone] 11/24/2024 1:30 PM CDT Appointment [place] [facility] [address] [place] [address] [address] [place], [place] [address] Adrienne Marin MD [address] [place] [phone] 11/26/2024 1:30 PM CDT Appointment [place] [facility] [address] [place] [address] [address] [place], [place] [address] Adrienne Marin MD [address] [place] [phone] 12/30/2024 11:30 AM CDT Office Visit [facility] THREE [facility] [place] [address] [place] [address] Roc Fulton MD Three [facility]. [place] [address] [place] [address] 02/03/2025 11:00 AM CDT Office Visit [facility] Medical Group Multispecialty Care - [facility] 3 [facility], [address] [place] [address] Nathan Lechuga MD 3 [place] [address] documented as of this encounter Goals Goal Patient Goal Type Associated Problems Recent Progress Patient-Stated? Author Patient will return to prior living situation and remain independent in ADLs upon discharge from hospital General No Diana Todd, epic ambulatory analyst - family caregiver with be involved in care transitions and discharge planning General No Nicole Cole RN Safety Patient/family will have appropriate support at home upon discharge General No Ayleen Garcia, SYSTEM ADMINISTRATION ADVISOR documented as of this encounter Visit Diagnoses Not on filedocumented in this encounter Additional Health Concerns Infection Onset Date Last Indicated Resolved Time COVID-19 Rule Out 05/13/2023 05/13/2023 05/13/2023 4:14 PM FISHERIES DIRECTOR COVID-19 Rule Out 05/13/2023 05/13/2023 05/14/2023 1:35 AM FISHERIES DIRECTOR COVID-19 Rule Out 07/08/2023 07/08/2023 07/08/2023 5:34 PM FISHERIES DIRECTOR COVID-19 Rule Out 07/07/2024 07/07/2024 07/07/2024 7:39 AM FISHERIES DIRECTOR Assessment Noted Time PHQ-9 Depression Total Score: 0 11/19/19 3:11 PM CDT documented as of this encounter Care Teams Larriman Helper Relationship Specialty Start Date End Date Adrian Lee MD [address] [place] [phone] PCP - General FAMILY PRACTICE 04/22/18 05/08/24 Adrienne Marin MD [address] [place] [address] PCP - General INTERNAL MEDICINE 05/09/24 Gladys Sanchez MD [address] [place] [phone] [place] Tunnel Kiln Operator CARDIOVASCULAR DISEASE 05/28/19 Anna Landry, twisting department end finder (Ambulatory) REGISTERED NURSE 10/29/24 11/02/24 Anna Landry twisting department end finder (Ambulatory) REGISTERED NURSE 11/03/24 documented as of this encounter
--- OUTSIDE RECORDS SUMMARY | 2024-11-05 14:53 | XMS_ITS | Encounter Summary ---
Author Organization [facility] Address [facility] [place] [address] Care Team Providers Care Software Support Analyst Name Role Phone Adrian Lee MD Primary Care Provider [phone] Gladys Sanchez MD Unavailable [phone] Adrienne Marin MD Primary Care Provider Anna Landry RN Unavailable Unavailable Anna Landry RN Unavailable Unavailable Encounter Details Date Type Department Care Team (Late st Contact Info) Description 01/24/2023 Abstract [facility] [address] [place] [address] Flakito Hernandez MD Social History Tobacco Use [...] Sex Assigned at Male 07/08/2024 7:30 AM CHEMISTRY RESEARCH ASSISTANT Legal Sex Male 8:56 PM CDT Gender Identity Male 07/08/2024 7:30 AM CHEMISTRY RESEARCH ASSISTANT Sexual Orientation Straight 07/08/2024 7: 30 AM CHEMISTRY RESEARCH ASSISTANT documented as of this encounter Functional Status * RETIRED Are you deaf or do you have serious difficulty hearing Answer Date of Assessment Author Status Yes 06/14/2022 7:00 PM CHEMISTRY RESEARCH ASSISTANT Activ e * RETIRED Are you blind or do you have serious difficulty seeing, even when wearing glasses? Answer Date of Assessment Author Status No 06/14/2022 7:00 PM CHEMISTRY RESEARCH ASSISTANT Activ e * Do you have serious [...] 11/07/2024 1:30 PM CDT App[facility]ment [facility] [place] [address] Adrienne Marin MD [address] [place] [phone] 11/07/2024 2:40 PM CDT Office Visit [facility] Medical Group Diabetes and Endocrinology - [address] [phone] Hannah Garrison MD [address] [place], [place] [address]Jeevan [place] [address] 11/10/2024 1:30 PM CDT Appointment Cardiopulmonary Rehab [address] [address] Adrienne Marin MD [address] [place] [phone] 11/12/2024 1:30 PM CDT Appointment [place] [facility] [place] [address] Adrienne Marin MD [address] [place] [phone] 11/14/2024 1:30 PM CDT Appointment [place] [facility] [address] [place] [address] [place] [address] Adrienne Marin MD [address] [place] [phone] 11/18/2024 2:45 PM CDT [facility], [address] [address] Anders Palacio, COURTNEY Three [facility] [address] [place] [address] 11/19/2024 1:30 PM CDT Appointment [place] [facility] [place] [address] Adrienne Marin MD [address] [place] [phone] 11/21/2024 1:30 PM CDT Appointment [place] [facility] [place] [address] Adrienne Marin MD [address] [place] [phone] 11/24/2024 1:30 PM CDT Appointment [place] [facility] [address] [facility] [place] [address] Adrienne Marin MD [address] [place] [phone] 11/26/2024 1:30 PM CDT Appointment [place] [facility] [address] [place] [address] [address] [place], [place] [address] Adrienne Marin MD [address] [place] [phone] 12/30/2024 11:30 AM CDT Office Visit [facility] THREE [facility] [place] [address] [place] [address] Roc Fulton MD Three [facility]. [place] [address] [place] [address] 02/03/2025 11:00 AM CDT Office Visit [facility] Medical Group Multispecialty Care - [facility] 3 [facility], [address] [place] [phone] Nathan Lechuga MD 3 [place] [address] documented as of this encounter Goals Goal Patient Goal Type Associated Problems Recent Progress Patient-Stated? Author Patient will return to prior living situation and remain independent in ADLs upon discharge from hospital General No Diana Todd, stencil cutter - family caregiver with be involved in care transitions and discharge planning General No Nicole Cole RN Safety Patient/family will have appropriate support at home upon discharge General No Ayleen Garcia, MANAGER PAYROLL documented as of this encounter Visit Diagnoses Not on filedocumented in this encounter Additional Health Concerns Infection Onset Date Last Indicated Resolved Time COVID-19 Rule Out 05/13/2023 05/13/2023 05/13/2023 4:14 PM CHEMISTRY RESEARCH ASSISTANT COVID-19 Rule Out 05/13/2023 05/13/2023 05/14/2023 1:35 AM CHEMISTRY RESEARCH ASSISTANT COVID-19 Rule Out 07/08/2023 07/08/2023 07/08/2023 5:34 PM CHEMISTRY RESEARCH ASSISTANT COVID-19 Rule Out 07/07/2024 07/07/2024 07/07/2024 7:39 AM CHEMISTRY RESEARCH ASSISTANT Assessment Noted Time PHQ-9 Depression Total Score: 0 11/19/19 3:11 PM CDT documented as of this encounter Care Teams Software Support Analyst Relationship Specialty Start Date End Date Adrian Lee MD [address] [place] [address] PCP - General FAMILY PRACTICE 04/22/18 05/08/24 Adrienne Marin MD [address] [place] [address] PCP - General INTERNAL MEDICINE 05/09/24 Gladys Sanchez MD [address] [place] [address] [place] Radiology Teacher CARDIOVASCULAR DISEASE 05/28/19 Anna Landry diesel mechanic farm (Ambulatory) REGISTERED NURSE 10/29/24 11/02/24 Anna Landry diesel mechanic farm (Ambulatory) REGISTERED NURSE 11/03/24 documented as of this encounter
--- OUTSIDE RECORDS SUMMARY | 2024-11-05 14:53 | XMS_ITS | Encounter Summary ---
Author Organization [facility] Address [facility] [place] [address] Care Team Providers Care Supervisor Instrument Mechanics Name Role Phone Adrian Lee MD Primary Care Provider Gladsy Sanchez MD Unavailable Adrienne Marin MD Primary Care Provider [phone] Anna Landry RN Unavailable Unavailable Anna Landry RN Unavailable Unavailable Encounter Details Date Type Department Care Team (Late st Contact Info) Description 10/26/2020 Abstract [facility] [address] [place] [address] Social History Tobacco Use Types Packs/Day Years [...] Sex Assigned at Male 07/08/2024 7:30 AM MANAGER OF COMPLIANCE Legal Sex Male 8:56 PM CDT Gender Identity Male 07/08/2024 7:30 AM MANAGER OF COMPLIANCE Sexual Orientation Straight 07/08/2024 7: 30 AM MANAGER OF COMPLIANCE COVID-19 Exposure Response Date Recorded In the last month, have you been in contact with someone who was confirmed or suspected to have Coronavirus / COVID-19? No / Unsure 10/02/2020 11:49 AM CDT documented as of this encounter Plan of Treatment Upcoming Encounters Date Type Department Care Team (Late st Contact Info) Description 11/07/2024 1:30 PM CDT Appointment Cardiopulmonary Rehab [address] [place] [address] Adrienne Marin MD [address] [place] [phone] 11/07/2024 2:40 PM CDT Office Visit [facility] Diabetes and Endocrinology - [place] [address] [place] [phone] Hannah Garrison MD [address] [place] [phone] 11/10/2024 1:30 PM CDT [facility]ment [facility] [place] [address] Adrienne Marin MD [address] [place] [phone] 11/12/2024 1:30 PM CDT Appointment Card[facility] [place] [address] Adrienne Marin MD [address] [place] [phone] 11/14/2024 1:30 PM CDT Appointment [facility] [place] [address] Adrienne Marin MD [address] [place] [phone] 11/18/2024 2:45 PM CDT Office Visit [facility], [facility] [address] [place] [address] Anders Palacio NP Three [facility] [address] [place] [address] 11/19/2024 1:30 PM CDT Appointment [facility] [address] [place] [address] [address] [place] [address] Adrienne Marin MD [address] [place] [phone] 11/21/2024 1:30 PM CDT Appointment [facility] [address] [place], [place] [address], [place] [address] Adrienne Marin MD [address] [place] [phone] 11/24/2024 1:30 PM CDT Appointment [facility] [place] [address] Adrienne Marin MD [address] [place] [phone] 11/26/2024 1:30 PM CDT Appointment [facility] [address] [place], [place] [address], [place] [address] Adrienne Marin MD [address] [place] [phone] 12/30/2024 11:30 AM CDT Office Visit [facility], [facility] [address] [place] [address] Roc Fulton MD Three [facility]. [facility] [address] [place] [address] 02/03/2025 11:00 AM CDT Office Visit [facility] Medical Group Multispecialty Care - [facility] 3 [facility], [address] [place] [phone] Nathan Lechuga MD [address] [place] [address] documented as of this encounter Visit Diagnoses Not on filedocumented in this encounter Additional Health Concerns Infection Onset Date Last Indicated Resolved Time COVID-19 Rule Out 07/19/2021 07/19/2021 07/19/2021 9:17 PM MANAGER OF COMPLIANCE COVID-19 Rule Out 07/19/2021 07/19/2021 07/20/2021 7:01 PM MANAGER OF COMPLIANCE COVID-19 Rule Out 08/18/2021 08/18/2021 08/18/2021 12:03 PM MANAGER OF COMPLIANCE COVID-19 Confirmed 08/18/2021 08/18/2021 12:32 AM CDT COVID-19 Rule Out 09/13/2021 09/13/2021 09/13/2021 5:00 AM CDT COVID-19 Rule Out 05/23/2022 05/23/2022 05/23/2022 3:38 PM MANAGER OF COMPLIANCE Influenza - Seasonal 05/23/2022 05/23/2022 023 12:34 AM MANAGER OF COMPLIANCE COVID-19 Rule Out 05/13/2023 05/13/2023 05/13/2023 4:14 PM MANAGER OF COMPLIANCE COVID-19 Rule Out 05/13/2023 05/13/2023 05/14/2023 1:35 AM MANAGER OF COMPLIANCE COVID-19 Rule Out 07/08/2023 07/08/2023 07/08/2023 5:34 PM MANAGER OF COMPLIANCE COVID-19 Rule Out 07/07/2024 07/07/2024 07/07/2024 7:39 AM MANAGER OF COMPLIANCE documented as of this encounter Care Teams Supervisor Instrument Mechanics Relationship Specialty Start Date End Date Adrian Lee MD [address] [place] [address] PCP - General FAMILY PRACTICE 04/22/18 05/08/24 Adrienne Marin MD [address] [place] [phone] PCP - General INTERNAL MEDICINE 05/09/24 Gladys Sanchez MD [address] [place] [phone] [place] [employer] Operator CARDIOVASCULAR DISEASE 05/28/19 Anna Landry, career counselor (Ambulatory) REGISTERED NURSE 10/29/24 11/02/24 Anna Landry RN Care Manager (Ambulatory) REGISTERED NURSE 11/03/24 documented as of this encounter
--- OUTSIDE RECORDS SUMMARY | 2024-11-05 14:53 | XMS_ITS | Encounter Summary ---
Author Organization [facility] Address [facility] [place] [address] Care Team Providers Care Mental Health Professional Name Role Phone Gladys Sanchez MD Unavailable Adrienne Marin MD Primary Care Provider [phone] Anna Landry RN Unavailable Unavailable Anna Landry RN Unavailable Unavailable Reason for Visit * Reason Onset Date Comments TCM 10/31/2024 [facility] 10/26/24 - 10/30 Encounter Details Date Type Department Care Team (Late st Contact Info) Description 10/31/2024 Patient Outreach [address] [address] Anna Landry, RN TCM ([facility] 10/26/24 - 10/30/24) Social History Tobacco Use Types Packs/Day Years Used Date Smoking Tobacco: Never Passive Smoke Exposure: Never Smokeless Tobacco: Never Comments:non-smoker Alcohol Use Standard Drinks/Week Comments No 0 (1 standard drink = 0.6 oz pur e alcohol) [facility] Utilities Answer Date Recorded In the past 12 months has [employer] electric, gas, oil, or water Clinical Data threatened to shut off services in your home? No 10/26/2024 Humiliation, Afraid, Rape, a nd Kick questionnaire Answer Date Recorded Within the last year, have y ou been afraid of your partner or ex-partner? Patient unable to answer 10/26/2024 Within the last year, have y ou been humiliated or emotionally abused in other ways by your partner or ex-partner? Patient unable to answer 10/26/2024 Within the last year, have y ou been kicked, hit, slapped, or otherwise physically hurt by your partner or ex-partner? Patient unable to answer 10/26/2024 Within the last year, have y ou been raped or forced to have any kind of sexual activity by your partner or ex-partner? Patient unable to answer 10/26/2024 AUDIT-C Answer Date Recorded Q1: How often [...] care, and heating? Not hard at all 10/26/2024 PHQ-2 Answer Date Recorded Patient Health Questionnaire-2 Score 0 05/09/2024 Hunger Vital Sign Answer Date Recorded Within the past 12 months, y ou worried that your food would run out before you got the money to buy more. Never true 10/27/19 25 Within the past 12 months, t he food you bought just didn't last and you didn't have money to get more. Never true 10/26/2024 PRAPARE - Transportation Answer Date Re corded In the past 12 months, has l ack of transportation kept you from medical appointments or from getting medications? No 09/2024 In the past 12 months, has l ack of transportation kept you from meetings, work, or from getting things needed for daily living? No 10/26/2024 Housing Stability Vital Sign Answer Jayden e [...] to sleep or slept in a senior care (including now)? No 05/13/2023 Housing Stability Vital Sign Answer Jayden e Recorded In the last 12 months, was t here a time when you were not able to pay the mortgage or rent on time? No 10/26/2024 In the past 12 months, how m any times have you moved where you were living? 0 10/26/2024 At any time in the past 12 m [facility], were you homeless or living in a senior care (including now)? No 10/26/2024 Sex and Gender Information Value Date Recorded Sex Assigned at Male 07/08/2024 7:30 AM [employer] SUPERVISOR Legal Sex Male 8:56 PM CDT Gender Identity Male 07/08/2024 7:30 AM [employer] FARM SUPERVISOR Sexual Orientation Straight 07/08/2024 7: 30 AM [employer] FARM SUPERVISOR documented as of this encounter Functional Status * Are you deaf or do you have serious difficulty hearing Answer Date of Assessment Author Status No 10/26/2024 11:48 AM CDT Jarret Masters RN Active * Are you blind or do you have serious difficulty seeing, even when wearing glasses? Answer Date of Assessment Author Status No 10/26/2024 11:48 AM CDT Jarret Masters RN Active * Do you have serious difficulty walking or climbing stairs? Answer Date of Assessment Author Status No 10/26/2024 11:48 AM CDT Jarret Masters RN Active * Do you have difficulty dressing or bathing? Answer Date of Assessment Author Status No 10/26/2024 11:48 AM CDT Jarret Masters RN Active * Because of a physical, mental, or emotional condition, do you have difficulty doing errands alone such as visiting a doctor's office or shopping? Answer Date of Assessment Author Status No 10/26/2024 11:48 AM CDT Jarret Masters RN Active documented as of this encounter Mental Status * Because of a physical, mental, or emotional condition, do you have serious difficulty concentrating, remembering, or making decisions? Answer Entry Date Author Status No 10/26/2024 11:48 AM CDT Jarret Masters RN Active documented in this encounter Plan of Treatment Upcoming Encounters Date Type Department Care Team (Late st Contact Info) Description 11/07/2024 1:30 PM CDT Appointment Cardiopulmonary Rehab [address] [place] [address] Adrienne Marin MD [address] [place] [phone] 11/07/2024 2:40 PM CDT Office Visit [facility] Medical Group Diabetes and Endocrinology - [place] [address] [place] [phone] Hannah Garrison MD [facility] [place] [address] 11/10/2024 1:30 PM CDT Appointment [facility] [address] [place] [address] Adrienne Marin MD [address] [place] [phone] 11/12/2024 1:30 PM CDT Appointment [facility] [address] [place] [address] Adrienne Marin MD [address] [place] [phone] 11/14/2024 1:30 PM CDT Appointment [facility] [address] [place] [address] Adrienne Marin MD [address] [place] [phone] 11/18/2024 2:45 PM CDT Office Visit [facility] THREE [facility], [facility] [address] [place] [address] Anders Palacio NP Three [facility] [address] [place] [address] 11/19/2024 1:30 PM CDT Appointment [facility] [address] [place] [address] Adrienne Marin MD [address] [place] [phone] 11/21/2024 1:30 PM CDT Appointment [facility] [address] [place] [address] Adrienne Marin MD [address] [place] [phone] 11/24/2024 1:30 PM CDT Appointment [facility] [address] [place] [address] Adrienne Marin MD [address] [place] [phone] 11/26/2024 1:30 PM CDT Appointment [facility] [place] [address] Adrienne Marin MD [address] [place] [phone] 12/30/2024 11:30 AM CDT Office Visit [facility] THREE [facility], [facility] [address] [place] [address] Roc Fulton MD Three [facility]. [facility] [address] [place] [address] 02/03/2025 11:00 AM CDT Office Visit [facility] Medical Group Multispecialty Care - [facility] 3 [facility], [address] [place] [phone] Nathan Lechuga MD [address] [place] [phone] documented as of this encounter Goals Goal Patient Goal Type Associated Problems Recent Progress Patient-Stated? Author Patient will return to prior living situation and remain independent in ADLs upon discharge from hospital General No Diana Todd, theatre manager - family caregiver with be involved in care transitions and discharge planning General No Nicole Cole RN Safety Patient/family will have appropriate support at home upon discharge General No Ayleen Garcia B[employer]ER CH[employer]STITCH documented as of this encounter Visit Diagnoses Not on filedocumented in this encounter Additional Health Concerns Assessment Noted Time PHQ-9 Depression Total Score: 0 11/19/19 22 3:11 PM CDT documented as of this encounter Care Teams Mental Health Professional Relationship Specialty Start Date End Date Adrienne Marin MD [address] [place] [phone] PCP - General INTERNAL MEDICINE 05/09/24 Gladys Sanchez MD [place] Unemployment Claims Adjudicator CARDIOVASCULAR DISEASE 05/28/19 Anna Landry RN Care Manager (Ambulatory) REGISTERED NURSE 10/29/24 11/02/24 Anna Landry RN Care Manager (Ambulatory) REGISTERED NURSE 11/03/24 documented as of this encounter
--- OUTSIDE RECORDS SUMMARY | 2024-11-05 14:53 | XMS_ITS | Clinical Summary ---
Author Organization [facility] Address [address] [place] [address] Care Team Providers Care Rabbit Dresser Name Role Phone Gladys Sanchez MD Unavailable [phone] Adrienne Marin MD Primary Care Provider [phone] Anna Landry RN Unavailable Unavailable Allergies Active Allergy Reactions Criticality Noted Date Comments Cephalosporins Rash Low 12/03/2015 Penicillins Rash Low 07/07/2024 Pioglitazone Swelling 03/22/2018 Medications * This document contains information received from the source organization and may not represent a complete record from that organization. sertraline 100 MG tabletIndicatio ns:antidepressa nt Take 1 tablet (100 mg total) by mouth daily. Indications: antidepressant Active Multiple Vitamins tabletIndicatio ns:supplement Take 1 tablet by mouth daily. Indications: supplement Active WIXELA INHUB 250-50 MCG/DOSE inhalerIndicati ons:Sob Inhale 1 puff into the lungs 2 (two) times daily. Indications: Sob Active ferrous sulfate EC 325 (65 Fe) MG tabletIndicatio ns:anemia Take 1 tablet by mouth daily with breakfast. Indications: anemia Active acetaminophen CR 650 MG Tab CR 8 hr tabletIndicatio ns:pairn Take 2 tablets (1,300 mg total) by mouth daily. Indications: pairn Active ASPIRIN LOW DOSE 81 MG tablet Take 1 tablet (81 mg total) by mouth daily. 022 Active Inulin (FIBER CHOICE) 1.5 g Chew [...] by mouth nightly at bedtime. 30 tablet 023 Active hydrALAZINE (APRESOLINE) 50 MG tablet Take 1 tablet (50 mg total) by mouth 3 (three) times daily. 023 Active TRUEPLUS 5-BEVEL PEN NEEDLES 31G X 5 MM [facility] [place] DAILY TO INJECT LANTUS AND VICTOZA 023 Active pantoprazole EC (PROTONIX) 40 MG tablet Take 1 tablet (40 mg total) by mouth daily for 30 days. 30 tablet 023 Active NEBULIZER/TUBIN G/MOUTHPIECE KIT, DME,Indications :Acute on chronic diastolic congestive heart failure ([facility] HHS/HCC),Camarena ry artery disease involving creek coronary artery of creek heart without angina pectoris Nebulizer machine with all tubing Dx CHF exacerbation and Pneumonia 1 kit 023 Active insulin NPH isophane & regular (NOVOLIN 70/30 FLEXPEN) (70-30) 100 UNIT/ML injection (pen)Indication s:Type 2 diabetes mellitus with stage 3b chronic kidney disease, with long-term current use of insulin ([facility]/HCC HHS/HCC) ADMINISTER 35 UNITS UNDER THE SKIN TWICE DAILY BEFORE MEALS 30 mL 5 024 Active Additional Information Patient taking differently: ADMINISTER 35 UNITS UNDER THE SKIN TWICE DAILY BEFORE MEALS pt taking 30 units and 20 units, Reported on 05/09/2024 glipiZIDE (GLUCOTROL) 10 MG tabletIndicatio ns:Type 2 diabetes mellitus with stage 3a chronic kidney disease, with long-term current use of insulin (CMS/HCC HHS/HCC) TAKE 1 TABLET(10 MG) BY MOUTH EVERY MORNING BEFORE BREAKFAST 90 tablet 1 024 Active furosemide (LASIX) 80 MG tablet take 1 tablet by mouth every morning 90 tablet 1 024 Active allopurinol (ZYLOPRIM) 100 MG tablet TAKE 1 TABLET(100 MG) BY MOUTH DAILY 90 tablet 1 024 Active gabapentin (NEURONTIN) 100 MG capsule Take 1 capsule (100 mg total) by mouth 3 (three) times daily. 90 capsule 025 Active Additional Information Patient taking differently: 300 mgOral 3 times daily, Reported on 09/01/2024 carvedilol (COREG) 25 MG tablet Take 1 tablet (25 mg total) by mouth 2 (two) times daily. 60 tablet 025 Active isosorbide mononitrate ER (IMDUR) 30 MG 24 hr tablet Take 1 tablet (30 mg total) by mouth daily. 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 120 tablet 025 Active clopidogrel (PLAVIX) 75 MG tablet Take 1 tablet (75 mg total) by mouth daily. Active NIFEdipine XL (ADALAT CC) 30 MG 24 hr tablet Take 1 tablet (30 mg total) by mouth daily. 30 tablet 1 025 Active cloNIDine (CATAPRES) 0.1 MG tablet Take 1 tablet (0.1 mg total) by mouth 2 (two) times daily. 60 tablet 1 025 Active potassium bicarbonate-cit vira acid (EFFER-K) 20 MEQ effervescent tablet Take 1 tablet (20 mEq total) by mouth daily. 60 tablet 1 025 Active metFORMIN ER (GLUCOPHAGE-XR) 500 MG 24 hr tabletIndicatio ns:Type 2 diabetes mellitus with stage 3a chronic kidney disease, with long-term current use of insulin ([facility] HHS/HCC) TAKE 1 TABLET BY MOUTH DAILY WITH SUPPER 90 tablet 3 024 2024 Discontinued(S top Taking at Discharge) levETIRAcetam (KEPPRA) 750 MG tablet Take 1 tablet (750 mg total) by mouth 2 (two) times daily. 120 tablet 025 2024 Discontinued(R eorder) levoFLOXacin (LEVAQUIN) 500 MG tablet Take 1 tablet (500 mg total) by mouth daily for 2 days. 2 tablet 025 2024 potassium bicarbonate-cit vira acid (EFFER-K) 20 MEQ effervescent tablet Take 1 tablet (20 mEq total) by mouth 2 (two) times daily. 60 tablet 1 025 2024 Discontinued Active Problems Problem Noted Date Diagnosed Date Respiratory failure ([facility]) 10/26/2024 Encephalopathy 07/06/2024 NSTEMI (non-ST elevated myoc ardial infarction) ([facility]) 05/13/2023 Stage 3b chronic kidney disease 01/03/2023 Hyperuricemia w/o signs of i nflam arthrit and tophaceous dis 07/20/2022 Hypomagnesemia 03/20/2022 Benign prostatic hyperplasia without lower urinary tract symptoms 01/09/2022 Iron deficiency anemia 08/16/2021 S/P angioplasty with stent 04/26/2018 Chronic diastolic congestive heart failure ([facility]) 04/26/2018 Type 2 diabetes mellitus wit h stage 3b chronic kidney disease, with long-term current use of insulin ([facility]) 07/19/2017 Hypertension, essential Dyslipidemia CAD (coronary artery disease) Resolved Problems Problem Noted Date Diagnosed Date Resolved Date NSTEMI (non-ST elevated myoc ardial infarction) ([facility]) 06/14/2022 05/07/2023 Edema, unspecified type 03/20/2022 05/09/2023 Hypokalemia 01/09/2022 05/07/2023 Diabetes mellitus without co mplication ([facility]) 01/09/2022 04/01/2022 Intracranial bleed ([facility]) 10/09/2021 11/18/2021 Dizziness 10/08/2021 11/18/2021 Acute respiratory failure ([facility]) 08/18/2021 11/18/2021 Pneumonia due to COVID-19 [...] Encounters Date Type Department Care Team Description 10/31/2024 Hospital Follow-up Call [facility] [place] [address] Niesha Love LPN Follow Up Call (ABRAM 10/26-10/30/24) 10/31/2024 Patient Outreach [facility], [address] [address] Anna Landry RN TCM ([facility]RAM 10/26/24 - 10/30/24) 10/30/2024 Orders Only [facility], [address] [address] Roc Fulton MD 10/29/2024 Travel 10/29/2024 Patient Outreach [facility], [address] [address] Anna Landry RN Hospital Follow Up (ABRAM Admission notification ) 10/28/2024 Travel 10/26/2024 12:49 AM CDT - 10/30/2024 12:31 PM CDT Hospital Encounter [facility] Int[facility] [place] [address] Ester Ramos MD Suresh, MD Jayla Alarcon Kandace C, MD McGowen, Payton K, MD Discharge Disposition: Home or Self Care (Routine Discharge) 10/24/2024 1:28 PM CDT - 10/24/2024 11:59 PM CDT Hospital Encounter [facility] [address] [place] [address] [place] [address] Adrienne Marin MD Discharge Disposition: Home or Self Care (Routine Discharge) 10/24/2024 Travel 10/22/2024 1:21 PM CDT - 10/22/2024 11:59 PM CDT Hospital Encounter [facility] [address] [place] [address] [place] [address] Adrienne Marin MD Discharge Disposition: Home or Self Care (Routine Discharge) 10/22/2024 Travel 10/20/2024 1:22 PM CDT - 10/20/2024 11:59 PM CDT Hospital Encounter [facility] [address] [place] [address] [place] [address] Adrienne Marin MD Discharge Disposition: Home or Self Care (Routine Discharge) 10/20/2024 Travel 10/17/2024 1:18 PM CDT - 10/17/2024 11:59 PM CDT Hospital Encounter [facility] [address] [place] [address] [place] [address] Adrienne Marin MD Discharge Disposition: Home or Self Care (Routine Discharge) 10/17/2024 Travel 10/13/2024 1:23 PM CDT - 10/13/2024 11:59 PM CDT Hospital Encounter [facility] [address] [place] [address] [place] [address] Adrienne Marin MD Discharge Disposition: Home or Self Care (Routine Discharge) 10/13/[address] [facility] [place] [address] [place] [address] Nathan Lechuga MD Medication 10/13/2024 Travel 10/13/[address] [facility] Call Center [address] [place] [address] [place] Provider levETIRAcetam (KEPPRA) 750 MG tablet 10/10/2024 1:28 PM CDT - 10/10/2024 11:59 PM CDT Hospital Encounter [facility] [address] [place] [address] Adrienne Marin MD Discharge Disposition: Home or Self Care (Routine Discharge) 10/10/2024 Travel 10/08/2024 1:21 PM CDT - 10/08/2024 11:59 PM CDT Hospital Encounter [facility] [address] [place] [address] Adrienne Marin MD Discharge Disposition: Home or Self Care (Routine Discharge) 10/08/2024 Travel 10/03/2024 1:29 PM CDT - 10/03/2024 11:59 PM CDT Hospital Encounter [facility] [address] [place] [address] Adrienne Marin MD Discharge Disposition: Home or Self Care (Routine Discharge) 10/03/2024 Travel 10/01/2024 1:18 PM CDT - 10/01/2024 11:59 PM CDT Hospital Encounter [facility] [address] [place] [address] Adrienne Marin MD Discharge Disposition: Home or Self Care (Routine Discharge) 10/01/2024 Travel 09/29/2024 1:19 PM CDT - 09/29/2024 11:59 PM CDT Hospital Encounter [facility] [address] [place] [address] Adrienne Marin MD Discharge Disposition: Home or Self Care (Routine Discharge) 09/29/2024 Travel 09/26/2024 1:25 PM CDT - 09/26/2024 11:59 PM CDT Hospital Encounter [facility] [address] [place] [address] Adrienne Marin MD Discharge Disposition: Home or Self Care (Routine Discharge) 09/26/2024 Travel 09/24/2024 1:30 PM CDT - 09/24/2024 11:59 PM CDT Hospital Encounter [facility] [address] [place] [address] Adrienne Marin MD Discharge Disposition: Home or Self Care (Routine Discharge) 09/24/2024 Travel 09/19/2024 1:16 PM CDT - 09/19/2024 11:59 PM CDT Hospital Encounter [facility] [address] [place] [address] Adrienne Marin MD Discharge Disposition: Home or Self Care (Routine Discharge) 09/19/2024 Travel 09/17/2024 1:30 PM CDT - 09/17/2024 11:59 PM CDT Hospital Encounter [facility] [address] [place] [address] [place] [address] Adrienne Marin MD Discharge Disposition: Home or Self Care (Routine Discharge) 09/17/2024 Travel 09/15/2024 1:25 PM CDT - 09/15/2024 11:59 PM CDT Hospital Encounter [facility] [address] [place] [address] [place] [address] Adrienne Marin MD Discharge Disposition: Home or Self Care (Routine Discharge) 09/15/2024 Travel 09/12/2024 1:19 PM CDT - 09/12/2024 11:59 PM CDT Hospital Encounter [facility] [place] [address] Adrienne Marin MD Discharge Disposition: Home or Self Care (Routine Discharge) 09/12/[address] [facility] - [address] [place] [address] Nathan Lechuga MD Results 09/12/2024 Travel 09/10/2024 1:29 PM CDT - 09/10/2024 11:59 PM CDT Hospital Encounter [facility] [address] [place] [address] [place] [address] Adrienne Marin MD Discharge Disposition: Home or Self Care (Routine Discharge) 09/10/2024 Travel 09/08/2024 1:21 PM CDT - 09/08/2024 11:59 PM CDT Hospital Encounter [facility] [address] [place] [address] Adrienne Marin MD Discharge Disposition: Home or Self Care (Routine Discharge) 09/08/2024 Travel 09/05/2024 1:59 PM CDT - 09/05/2024 4:10 PM CDT Emergency [facility] [address] [place] [address] Zhanna Reid MD Hyperglycemia Discharge Disposition: Home or Self Care (Routine Discharge) 09/05/2024 1:30 PM CDT - 09/05/2024 1:58 PM CDT Hospital Encounter [facility] [address] [place] [address] [place] [address] Adrienne Marin MD Discharge Disposition: Home or Self Care (Routine Discharge) 09/05/[address] [facility] Diabetes and Endocrinology - [address] [address] Hannah Garrison MD Blood Sugar Reporting (Elevated blood sugar >500 at cardiac rehab) 09/05/2024 Travel 09/03/2024 1:23 PM CDT - 09/03/2024 11:59 PM CDT Hospital Encounter [facility] [address] [place] [address] Adrienne Marin MD Discharge Disposition: Home or Self Care (Routine Discharge) 09/03/2024 Travel 09/01/2024 11:30 AM CDT Office Visit [facility], [address] [address] Anders Palacio NP Hospital Discharge 09/01/2024 Travel 08/22/2024 1:24 PM ROUTE VENDING MACHINE SERVICER - 08/22/2024 11:59 PM ROUTE VENDING MACHINE SERVICER Hospital Encounter [facility] [address] [place] [address] Adrienne Marin MD Discharge Disposition: Home or Self Care (Routine Discharge) 08/22/2024 Travel 08/18/2024 1:30 PM ROUTE VENDING MACHINE SERVICER - 08/18/2024 11:59 PM ROUTE VENDING MACHINE SERVICER Hospital Encounter [facility] [address] [place] [address] Adrienne Marin MD Discharge Disposition: Home or Self Care (Routine Discharge) 08/18/2024 Travel 08/15/2024 9:55 AM ROUTE VENDING MACHINE SERVICER - 08/15/2024 11:59 PM ROUTE VENDING MACHINE SERVICER Hospital Encounter [facility] [address] [place] [address] Adrienne Marin MD Discharge Disposition: Home or Self Care (Routine Discharge) 08/15/2024 Travel from Last 3 Months Immunizations Immunization Administration [...] drink = 0.6 oz pur e alcohol) [facility] Utilities Answer Date Recorded In the past 12 months has [facility] [employer] gas, oil, or water [employer] threatened to shut off services in your [...] place to sleep or slept in a intermediate (including now)? No 05/13/2023 Housing Stability Vital Sign Answer Jayden e Recorded In the last 12 months, was t here a time when you were not able to pay the mortgage or rent on time? No 10/26/2024 In the past 12 months, how m any times have you moved where you were living? 0 10/26/2024 At any time in the past 12 m [facility], were you homeless or living in a intermediate (including now)? No 10/26/2024 Sex and Gender Information Value Date Recorded Sex Assigned at Male 07/08/2024 7:30 AM ROUTE VENDING MACHINE SERVICER Legal Sex Male 8:56 PM CDT Gender Identity Male 07/08/2024 7:30 AM ROUTE VENDING MACHINE SERVICER Sexual Orientation Straight 07/08/2024 7: 30 AM ROUTE VENDING MACHINE SERVICER Last Filed Vital Signs Vital Sign Reading Time Taken Comments Blood Pressure 150/65 10/30/2024 11:45 AM CDT Pulse 67 10/30/2024 11:45 AM CDT Temperature 36.5 C (97.7 F) 10/30/2024 11:45 AM CDT Respiratory Rate 20 10/30/2024 11:45 AM CDT Oxygen Saturation 97% 10/30/2024 11:45 AM CDT Inhaled Oxygen Concentration - - Weight 75.8 kg (167 lb 1.7 oz) 10/30/2024 5:30 A M CDT Height 165.1 cm (5' 5 ) 10/26/2024 1:05 AM CDT Body Mass Index 27.81 10/26/2024 1:05 AM CDT Plan of Treatment Upcoming Encounters Date Type Department Care Team (Late st Contact Info) Description 11/07/2024 1:30 PM CDT Appointment Cardiop[facility] Rehab [address] [place], [place] [id number] Adrienne Marin MD [address] [place] [address] 11/07/2024 2:40 PM CDT Office Visit [facility] Diabetes and Endocrinology - [address] [address] Hannah Garrison MD [address] [place], [place] [address] [place], [place] [address] 11/10/2024 1:30 PM CDT Appointment [facility] [address] [place], [place] [address] Adrienne Marin MD [address] [place] [address] 11/12/2024 1:30 PM CDT Appointment [facility] [address] [place] [address] Adrienne Marin MD [address] [place] [phone] 11/14/2024 1:30 PM CDT Appointment [facility] [place] [address] Adrienne Marin MD [address] [place] [phone] 11/18/2024 2:45 PM CDT Office Visit [facility] THREE [address] [address] Anders Palacio, COURTNEY [place] [place] [address] 11/19/2024 1:30 PM CDT Appointment [facility] [place] [address] Adrienne Marin MD [address] [place] [phone] 11/21/2024 1:30 PM CDT Appointment [facility] [place] [address] Adrienne Marin MD [address] [place] [phone] 11/24/2024 1:30 PM CDT Appointment [facility] [address] [place] [address] Adrienne Marin MD [address] [place] [address] 11/26/2024 1:30 PM CDT Appointment [facility] [address] [place] [address] Adrienne Marin MD [address] [place] [phone] 12/30/2024 11:30 AM CDT Office Visit [facility], [address] [place] [address] Roc Fulton MD Three [facility]. [address] [place] [address] 02/03/2025 11:00 AM CDT Office Visit [facility] - [facility] [address] [facility], [address] [place] [phone] Nathan Lechuga MD [address] [place] [address] Health Maintenance Due Date Last Done Comments ASCVD Statin 1950 Diabetes: Retinopathy Eye Exam 1970 Hepatitis C 1970 DTaP, Tdap and Td Vaccines (1 - Tdap) 10/24/1971 Zoster Vaccines (1 of 2) 2002 RSV Immunization or 60+ Years (1 - Risk 60-74 years 1-dose series) 2012 Annual Medicare Wellness Visit 2017 COVID-19 Vaccine ( season) 2024 10/01/2020, 09/01/2020 PHQ-2 (Physician [place]) 06/25/2024 05/09/2024 Kidney Health Evaluation 04/25/2025 04/25/2024 Hemoglobin A1C 04/28/2025 10/26/2024, 06/25, 07/07/2024, Additional history exists Lipid Panel 07/07/2025 07/07/2024, 11/0 06/2023, 05/07/2023, [...] discharge from hospital General No Diana Todd, mannequin sander and finisher - family caregiver with be involved in care transitions and discharge planning General No Nicole Cole RN Safety Patient/family will have appropriate support at home upon discharge General No Ayleen Garcia, WOODS OVERSEER Procedures Procedure Name Priority Date/Time Associated Diagnosis Comments POCT GLUCOSE - RUSSO DOCKED DEVICE Routine 10/30/2024 11:38 AM CDT COMPREHENSIVE METABOLIC PANEL Routine 10/30/2024 4:55 AM CDT CBC W/DIFF AUTOMATED Routine 10/30/2024 4:55 AM CDT POCT GLUCOSE - RUSSO DOCKED DEVICE Routine 10/30/2024 4:29 AM CDT CLOSTRIDIUM DIFFICILE Routine 10/29/2024 9:37 PM CDT POCT GLUCOSE - RUSSO DOCKED DEVICE Routine 10/29/2024 8:24 PM CDT POCT GLUCOSE - RUSSO DOCKED DEVICE Routine 10/29/2024 4:47 PM CDT POCT GLUCOSE - RUSSO DOCKED DEVICE Routine 10/29/2024 10:07 AM CDT PRO-BRAIN NATRIURETIC PEPTIDE Routine 10/29/2024 5:10 AM CDT COMPREHENSIVE METABOLIC PANEL Routine 10/29/2024 5:10 AM CDT CBC W/DIFF AUTOMATED Routine 10/29/2024 5:10 AM CDT POCT GLUCOSE - RUSSO DOCKED DEVICE Routine 10/28/2024 7:44 PM CDT POCT GLUCOSE - RUSSO DOCKED DEVICE Routine 10/28/2024 4:36 PM CDT POCT GLUCOSE - RUSSO DOCKED DEVICE Routine 10/28/2024 11:34 AM CDT HEPARIN, ANTI XA, UFH TIMED 10/28/2024 10:30 AM CDT XR CHEST PORTABLE STAT 10/28/2024 3:5 3 AM CDT HEPARIN, ANTI XA, UFH TIMED 10/28/2024 3:22 AM CDT TROPONIN, QUANT STAT 10/28/2024 3:22 AM CDT COMPREHENSIVE METABOLIC PANEL Routine 10/28/2024 3:22 AM CDT CBC W/DIFF AUTOMATED Routine 10/28/2024 3:22 AM CDT MAGNESIUM Routine 10/28/2024 3:22 AM CDT BLOOD GAS, ARTERIAL LAB STAT 10/29/19 3:20 AM CDT POCT GLUCOSE - RUSSO DOCKED DEVICE Routine 10/28/2024 2:38 AM CDT POCT GLUCOSE - RUSSO DOCKED DEVICE Routine 10/27/2024 9:02 PM CDT HEPARIN, ANTI XA, UFH TIMED 10/27/2024 8:50 PM CDT TROPONIN, QUANT TIMED 10/27/2024 2:23 PM CDT HEPARIN, ANTI XA, UFH TIMED 10/27/2024 2:23 PM CDT POCT GLUCOSE - RUSSO DOCKED DEVICE Routine 10/27/2024 1:22 PM CDT HEPARIN, ANTI XA, UFH TIMED 10/27/2024 8:37 AM CDT POCT GLUCOSE - RUSSO DOCKED DEVICE Routine 10/27/2024 8:32 AM CDT TROPONIN, QUANT Routine 10/27/2024 4:24 AM CDT VANCOMYCIN Routine 10/27/2024 4:24 AM CDT MAGNESIUM Routine 10/27/2024 4:24 AM CDT CBC W/DIFF AUTOMATED Routine 10/27/2024 4:24 AM CDT COMPREHENSIVE METABOLIC PANEL Routine 10/27/2024 4:24 AM CDT POCT GLUCOSE - RUSSO DOCKED DEVICE Routine 10/27/2024 2:52 AM CDT HEPARIN, ANTI XA, UFH TIMED 10/27/2024 2:38 [id number]|2024-11-05 14:53:00|2024-11-05 14:52:00|XMS_ITS|ROS BOLANOS|External Medical Summaries|[id number]|" Encounter Summary Created on: November 05, 2024 Mr. Craig Pool : 1950 Sex: Male Author Organization [facility] Address [address] [place] [address] Care Team Providers Care Rabbit Dresser Name Role Phone Pee Lafleur MD Unavailable Unavailable Adrian Lee MD Primary Care Provider [phone] Gladys Sanchez MD Unavailable [phone] Adrienne Marin MD Primary Care Provider [phone] Anna Landry RN Unavailable Unavailable Anna Landry RN Unavailable Unavailable Encounter Details Date Type Department Care Team (Late st Contact Info) Description 11/30/2018 Abstract [facility] [address] [place] [address] , Generic Conversion, Social History Tobacco Use Types Packs/Day Years Used Date Smoking Tobacco: Never Smokeless Tobacco: Never Sex and Gender Information Value Date Recorded Sex Assigned at Male 07/08/2024 7:30 AM ROUTE VENDING MACHINE SERVICER Legal Sex Male 8:56 PM CDT Gender Identity Male 07/08/2024 7:30 AM ROUTE VENDING MACHINE SERVICER Sexual Orientation Straight 07/08/2024 7: 30 AM ROUTE VENDING MACHINE SERVICER documented as of this encounter Plan of Treatment Upcoming Encounters Date Type Department Care Team (Late Contact Info) Description 11/07/2024 1:30 PM CDT Appointment Cardiopulmonary Rehab [address] [place] [address] Adrienne Marin MD [facility] [place] [address] 11/07/2024 2:40 PM CDT Office Visit [facility] Diabetes and Endocrinology - [address] [address] Hannah Garrison MD [address] [facility] [place] [place], [place] [address] 11/10/2024 1:30 PM CDT Appointment [facility] [address] [place] [address] Adrienne Marin MD [address] [place] [phone] 11/12/2024 1:30 PM CDT Appointment [facility] [place] [address] Adrienne Marin MD [address] [place] [phone] 11/14/2024 1:30 PM CDT Appointment [facility] [place] [address] Adrienne Marin MD [address] [place] [phone] 11/18/2024 2:45 PM CDT Office Visit [facility] THREE [facility] [address] [place], [place] [address] Anders Palacio, COURTNEY Three [facility] [address] [place] [address] 11/19/2024 1:30 PM CDT Appointment [facility] [place] [address] Adrienne Marin MD [address] [place] [phone] 11/21/2024 1:30 PM CDT Appointment [facility] [address] [place] [address] Adrienne Marin MD [address] [place] [phone] 11/24/2024 1:30 PM CDT Appointment [facility] [address] [place] [address] [address] [place] [address] Adrienne Marin MD [address] [place] [phone] 11/26/2024 1:30 PM CDT Appointment [facility] [address] [place] [address] [place] [address] Adrienne Marin MD [address] [place] [phone] 12/30/2024 11:30 AM CDT Office Visit [facility] THREE [facility] [address] [place] [address] Roc Fulton MD Three [facility]. [facility] [address] [place] [address] 02/03/2025 11:00 AM CDT Office Visit [facility] 3 [facility], [address] [place] [phone] Nathan Lechuga MD [address] [place] [address] documented as of this encounter Visit Diagnoses Not on filedocumented in this encounter Additional Health Concerns Infection Onset Date Last Indicated Resolved Time COVID-19 Rule Out 07/19/2021 07/19/202107/1907/19/2021 9:17 PM ROUTE VENDING MACHINE SERVICER COVID-19 Rule Out 07/19/2021 07/19/2021 07/20/2021 7:01 PM ROUTE VENDING MACHINE SERVICER COVID-19 Rule Out 08/18/2021 08/18/2021 08/18/2021 12:03 PM ROUTE VENDING MACHINE SERVICER COVID-19 Confirmed 08/18/2021 08/18/2021 12:32 AM CDT COVID-19 Rule Out 09/13/2021 09/13/2021 09/13/2021 5:00 AM CDT COVID-19 Rule Out 05/23/2022 05/23/2022 05/23/2022 3:38 PM ROUTE VENDING MACHINE SERVICER Influenza - Seasonal 05/23/2022 05/23/2022 023 12:34 AM ROUTE VENDING MACHINE SERVICER COVID-19 Rule Out 05/13/2023 05/13/2023 05/13/2023 4:14 PM ROUTE VENDING MACHINE SERVICER COVID-19 Rule Out 05/13/2023 05/13/2023 05/14/2023 1:35 AM ROUTE VENDING MACHINE SERVICER COVID-19 Rule Out 07/08/2023 07/08/2023 07/08/2023 5:34 PM ROUTE VENDING MACHINE SERVICER COVID-19 Rule Out 07/07/2024 07/07/2024 07/07/2024 7:39 AM ROUTE VENDING MACHINE SERVICER documented as of this encounter Care Teams Rabbit Dresser Relationship Specialty Start Date End Date Adrian Lee MD [address] [place] [phone] PCP - General FAMILY PRACTICE 04/22/18 05/08/24 Adrienne Marin MD [address] [place] [phone] PCP - General INTERNAL MEDICINE 05/09/24 Pee Lafleur MD [place] [employer] CARDIOVASCULAR DISEASE 11/02/17 05/27/19 Gladys Sanchez MD [address] [place] [address] [place] [employer] CARDIOVASCULAR DISEASE 05/28/19 Anna Landry, inverter and clipper (Ambulatory) REGISTERED NURSE 10/29/24 11/02/24 Anna Landry, inverter and clipper (Ambulatory) REGISTERED NURSE 11/03/24 documented as of this encounter "
--- NOTE | 2024-11-05 16:03 | ED_ITS ---
HPI - General Adult General Chief complaint: Unspecified Stated complaint: tiered Time Seen by Provider: 11/05/24 16:03 Source: patient Mode of arrival: ambulatory Limitations: no limitations History of Present Illness HPI narrative: 74-year-old male with a history of hypertension, diabetes mellitus, biter, seizure disorder, dyslipidemia, GI bleed, DONNY noncompliant with CPAP, CAD status post stent in June of 2024 with an EF of 40%, recurrent pneumonia, CKD presented to this hospital on 10/25/2024 with acute hypoxic respiratory failure secondary to bilateral lung infiltrates secondary to pneumonia/ CHF exacerbation. The patient was transferred to [facility] where the patient was noted to have pneumonia and discharged home on 10/31/1999 on Levaquin. Today the patient presents for a follow-up after completion of antibiotics for the pneumonia. The patient does not have any fever. No cough, sputum production or shortness of breath. Patient feels weak and drowsy. had difficulty waking him up. Onset (ago): day(s) Relieving factors: none Exacerbating factors: none Associated symptoms: denies other symptoms Treatments prior to arrival: none Related Data Home Medications Medication Instructions Recorded Confirmed Last Taken Type Adult Multivitamin with Iron 1 tab-cap PO DAILY 06/09/22 08/23/24 08/22/24 History aspirin 81 mg tablet,delayed 81 mg PO DAILY 06/09/22 08/23/24 08/22/24 History release atorvastatin 80 mg BYMOUTH 06/09/22 08/23/24 08/22/24 History carvedilol 12.5 mg tablet (Coreg) 25 mg PO BID 06/09/22 08/23/24 08/22/24 History ferrous sulfate 325 mg (65 mg 650 mg PO DAILY 06/09/22 08/23/24 Unknown History iron) tablet (Feosol) fluticasone 250 mcg-salmeterol 50 1 inh inhalation Q12H 06/09/22 08/23/24 08/22/24 History mcg/dose blistr powdr for inhalation (Wixela Inhub) hydralazine 50 mg tablet 100 mg PO Q8H 06/09/22 08/23/24 08/22/24 History pantoprazole 40 mg tablet,delayed 40 mg PO DAILY@0630 06/09/22 08/23/24 08/22/24 History release (Protonix) sertraline 100 mg tablet (Zoloft) 100 mg PO DAILY 06/09/22 08/23/24 08/22/24 History acetaminophen 650 mg 1,300 mg PO Q8H PRN fever or pain 08/23/24 08/23/24 Unknown History tablet,extended release (8 Hour Pain Reliever) alfuzosin 10 mg tablet,extended 10 mg PO DAILY 08/23/24 08/23/24 08/22/24 History release 24 hr allopurinol 100 mg tablet 100 mg PO DAILY 08/23/24 08/23/24 08/22/24 History cetirizine 10 mg capsule (All Day 10 mg PO DAILY 08/23/24 08/23/24 08/22/24 History Allergy (cetirizine)) clopidogrel 75 mg tablet (Plavix) 75 mg PO DAILY 08/23/24 08/23/24 08/22/24 History ferrous sulfate 325 mg (65 mg 325 mg PO DAILY 08/23/24 08/23/24 08/21/24 History iron) tablet (Iron (ferrous sulfate)) fiber 1 tablet PO BID 08/23/24 08/23/24 Unknown History fluticasone 250 mcg-salmeterol 50 1 inh inhalation Q12H 08/23/24 08/23/24 08/22/24 History mcg/dose blistr powdr for inhalation (Advair Diskus) furosemide 80 mg tablet 80 mg PO DAILY 08/23/24 08/23/24 08/22/24 History gabapentin 300 mg capsule 300 mg PO TID 08/23/24 08/23/24 08/22/24 History insulin aspar prot-insulin aspart 30 unit subcut BID 08/23/24 08/23/24 08/22/24 History 100 unit/mL (70-30) subcutaneous pen isosorbide mononitrate 30 mg 30 mg PO DAILY 08/23/24 08/23/24 08/22/24 History tablet,extended release 24 hr levetiracetam 750 mg tablet 1,500 mg PO Q12H 08/23/24 08/23/24 08/22/24 History melatonin 10 mg capsule 10 mg PO HS 08/23/24 08/23/24 08/22/24 History Allergies Allergy/AdvReac Type Severity Reaction Status Date / Time cefaclor (From [facility]) Allergy Mild Rash Verified 08/23/24 12:56 Cephalosporins Allergy Unknown Verified 08/23/24 12:56 pioglitazone Allergy Unknown Verified 08/23/24 12:56 Review of Systems 2 Review of Systems: All systems reviewed & are unremarkable except as noted in HPI and below Constitutional: Constitutional: Reports as per HPI and Reports no additional constitutional complaints Eyes: Eyes: Reports as per HPI and Reports no additional eye complaints ENT: Reports system reviewed and no additional complaints, except as documented and Reports as per HPI Cardiovascular: Cardiovascular: Reports as per HPI and Reports no additional cardiovascular complaints Respiratory: Respiratory: Reports as per HPI and Reports no additional respiratory complaints Gastrointestinal: Gastrointestinal: Reports as per HPI and Reports no additional gastrointestinal complaints Genitourinary: Genitourinary: Reports no additional male genitourinary complaints and Reports as per HPI Musculoskeletal: Musculoskeletal: Reports no additional musculoskeletal complaints and Reports as per HPI Integumentary/Breasts: Skin/Breast: Reports system reviewed and no additional complaints, except as docu and Reports as per HPI Neurologic: Reports system reviewed and no additional complaints, except as documented and Reports as per HPI Psychiatric: Psychiatric: Reports no additional psychiatric complaints and Reports as per HPI Endocrine: Endocrine: Reports no additional endocrine complaints and Reports as per HPI Hematologic/Lymphatic: Hematologic/Lymphatic: Reports no additional hematologic/lymphatic complaints and Reports as per HPI Allergic/Immunologic: Allergic/Immunologic: Reports no additional allergic/immunologic complaints and Reports as per HPI [facility] Past Medical History Medical History Gout Dyslipidemia CAD (coronary artery disease) Anemia Congestive heart failure Diabetes mellitus type 2, insulin dependent Surgical History Surgical History H/O heart artery stent Social History Social History Smoking status: Never smoker Second hand tobacco smoke exposure: No Alcohol intake: never Substance use: never Substance use type: does not use Do You Feel Safe in your Home?: Yes Lack of Transportation: No Lack of Food: Never True Current Housing: I Have Housing Concerned About Future Housing: No Difficulty Paying Gas/Electric Bills: No Difficulty Paying for Meds: No Currently Unemployed: No Education: Associate Degree Difficulty w/ Childcare or Family Care: No Spiritual care concerns: No Exam 2 Narrative: Pulse is 60 blood pressure is 132/53. Temperature 37.1°. Oxygen saturation of 93% on room air. Const: General: cooperative, healthy appearing and comfortable Nutritional Appearance: average body habitus and well nourished HENMT: Head: normal to inspection, No palpable skull fracture present, normocephalic and atraumatic Ears: hearing grossly normal bilaterally ( Patient uses hearing aids.) Face/Nose/Sinus: Normal external nose present and Normal nares present Face and sinus: normal facial exam, sinuses nontender and face symmetric Mouth: Yes Normal oral and palatal mucosa present, Yes lip normal and Yes tongue normal Throat: posterior oropharynx normal Eyes: General: appearance normal, both eyes and all related structures Neck: Neck: normal visual inspection, full ROM, no lymphadenopathy and no meningeal signs Chest: Chest palpation & inspection: normal inspection of the chest Resp: Effort & Inspection: normal respiratory effort Auscultation: crackles and diminished lung sounds Cardio: Rate: regular rate Rhythm: regular rhythm Heart sounds: S1 normal heart sound present and S2 normal heart sound present GI: Inspection: normal to inspection Other: Tenderness/ rigidity/rebound : General: Yes no CVA tenderness Back/Spine/Pelvis: Back: no CVA tenderness and back tenderness ( spinal tenderness.) Skin: General skin exam: normal color, no rashes or lesions noted, elasticity normal and turgor normal Neuro: General: oriented to person, oriented to place, oriented to time and patient oriented x3 Extrem: General: normal to inspection and full ROM Psych: Appearance: grossly normal and well kempt Course Course Emergency Course: regarding bilateral pneumonia-- patient is afebrile without any cough or shortness of breath. Chest x-ray continues to show ongoing bilateral lung infiltrates. The patient has a white count of 13.4. In view of the lack of fever and improvement of symptoms would assumed that the patient has recovered. If he continues to spike fever or has worsening shortness of breath advised him to follow-up with his primary care physician. patient has CHF and is continued on his usual medications. patient has had recurrent pneumonia over the past few months. Symptomatic early he is greatly improved. If he has recurrence of pneumonia would consider cryptogenic organizing pneumonia. Vital Signs Vital signs: Vital Signs Temperature 37.1 C 11/05/24 14:50 Pulse Rate 60 11/05/24 14:50 Respiratory Rate 20 11/05/24 14:50 Blood Pressure 132/53 L 11/05/24 14:50 Pulse Oximetry 93 11/05/24 14:50 Oxygen Delivery Room Air 11/05/24 14:50 Temperature 36.8 C 11/05/24 16:52 Pulse Rate 65 11/05/24 16:52 Respiratory Rate 18 11/05/24 16:52 Blood Pressure 156/58 H 11/05/24 16:52 Pulse Oximetry 93 11/05/24 16:52 Oxygen Delivery Room Air 11/05/24 16:52 Medical Decision Making MDM Narrative Medical decision making narrative: resolving bilateral pneumonia CHF compensated Differential Diagnosis Differential Diagnosis: aspiration pneumonia, CHF exacerbation, community-acquired pneumonia Medical Records Medical records reviewed: Yes I reviewed the external patient's medical records. Vital Signs Vital Signs: Vital Signs Temperature 37.1 C 11/05/24 14:50 Pulse Rate 60 11/05/24 14:50 Respiratory Rate 20 11/05/24 14:50 Blood Pressure 132/53 L 11/05/24 14:50 Pulse Oximetry 93 11/05/24 14:50 Oxygen Delivery Room Air 11/05/24 14:50 Temperature 36.8 C 11/05/24 16:52 Pulse Rate 65 11/05/24 16:52 Respiratory Rate 18 11/05/24 16:52 Blood Pressure 156/58 H 11/05/24 16:52 Pulse Oximetry 93 11/05/24 16:52 Oxygen Delivery Room Air 11/05/24 16:52 Lab Data 11/05/24 16:43 11/05/24 16:43 Labs: Lab Results 11/05/24 Range/Units 16:43 WBC 13.4 H (4.8-10.8) K/mm3 RBC 3.28 L (4.70-6.10) M/mm3 Hgb 9.5 L (12.4-15.3) g/dL Hct 29.6 L (37.0-46.0) % MCV 90.2 (78.0-102.0) fL MCH 29.0 (27.0-31.0) pg MCHC 32.1 (32-36) g/dL RDW 14.3 (11.6-14.4) % Plt Count 212 (150-420) K/mm3 MPV 11.2 H (8.7-11.0) fl Immature Gran % (Auto) 0.8 H (0.0-0.0) % Neut % (Auto) 87.4 H (50.0-70.0) % Lymph % (Auto) 3.3 L (18.0-42.0) % [place] % (Auto) 5.8 (2.0-11.0) % Eos % (Auto) 2.2 (1.0-6.0) % Baso % (Auto) 0.5 (0.0-1.0) % Lymph # (Auto) 0.44 L (1.10-4.50) K/mm3 [place] # (Auto) 0.78 (0.10-0.90) K/mm3 Eos # (Auto) 0.30 (0.02-0.50) K/mm3 Baso # (Auto) 0.07 (0.00-0.10) K/mm3 Abs Immat Gran (auto) 0.11 H (0.00-0.00) K/mm3 Absolute Neuts (auto) 11.73 H (1.70-7.20) K/mm3 Absolute Nucleated RBC 0.00 (0.00-0.00) K/mm3 Nucleated RBC % 0.0 (0-0.0) % Sodium 140 (137-145) mmol/L Potassium 3.6 (3.4-5.0) mmol/L Chloride 109 H (98-107) mmol/L Carbon Dioxide 21 L (22-30) mmol/L Anion Gap 10 (4-12) mmol/L BUN 30 H (9-20) mg/dL Creatinine 1.84 H (0.7-1.3) mg/dL Estim Creat Clear Calc 31 ml/min Estimated GFR 36 L (59 - ) Glucose 114 H (65-110) mg/dL Calculated Osmolality 297 H (285-295) mOsm/kg Lactic Acid 0.7 (0.4-2.0) mmol/L Calcium 8.8 (8.4-10.2) mg/dL Discharge Plan Discharge Clinical Impression: Compensated heart failure Pneumonia Qualifiers: Pneumonia type: due to unspecified organism Laterality: bilateral Lung location: unspecified part of lung Qualified Code(s): J18.9 - Pneumonia, unspecified organism Patient Disposition: Home Condition: Stable Instructions: Antibiotic Form, Heart Failure (ED), Bacterial Pneumonia (ED) Patient Language: Sami Prescriptions: No Action atorvastatin 80 mg BYMOUTH HS fluticasone propion-salmeterol [Wixela Inhub] 250-50 mcg/dose Blister With Device 1 inh INHALATION Q12H carvedilol [Coreg] 12.5 mg Tablet 25 mg PO BID Rx Instructions: must administer with a meal/food aspirin 81 mg Tablet,Delayed Release (Dr/Ec) 81 mg PO DAILY pantoprazole [Protonix] 40 mg Tablet,Delayed Release (Dr/Ec) 40 mg PO DAILY@0630 ferrous sulfate [Feosol] 325 mg (65 mg iron) Tablet 650 mg PO DAILY Patient Comments: Sun-Sun-Sun hydralazine 50 mg Tablet 100 mg PO Q8H Rx Instructions: hold if sbp<120 sertraline [Zoloft] 100 mg Tablet 100 mg PO DAILY Adult Multivitamin with Iron 1 tab-cap PO DAILY allopurinol 100 mg tablet 100 mg PO DAILY alfuzosin 10 mg tablet extended release 24 hr 10 mg PO DAILY furosemide 80 mg tablet 80 mg PO DAILY insulin asp prt-insulin aspart 100 unit/mL (70-30) insulin pen 30 unit SUBCUT BID gabapentin 300 mg capsule 300 mg PO TID levetiracetam 750 mg tablet 1,500 mg PO Q12H fluticasone propion-salmeterol [Advair Diskus] 250-50 mcg/dose blister with device 1 inh inhalation Q12H All Day Allergy (cetirizine) 10 mg capsule 10 mg PO DAILY clopidogrel [Plavix] 75 mg tablet 75 mg PO DAILY isosorbide mononitrate 30 mg tablet extended release 24 hr 30 mg PO DAILY melatonin 10 mg capsule 10 mg PO HS fiber Tablet,Chewable 1 tablet PO BID acetaminophen [8 Hour Pain Reliever] 650 mg tablet extended release 1,300 mg PO Q8H PRN (Reason: fever or pain) ferrous sulfate [Iron (ferrous sulfate)] 325 mg (65 mg iron) tablet 325 mg PO DAILY Patient Comments: Take on Take 2 tabs on guaifenesin [Mucus Relief ER] 600 mg Tablet Extended Release 12hr 1,200 mg PO Q12HR Qty: 15 0RF Rx Instructions: OTC oseltamivir [Tamiflu] 30 mg Capsule 30 mg PO Q12H Qty: 7 0RF Follow-up/Referrals: Adrienne Marin MD [Primary Care Provider] - Time of Disposition: 17:41
--- OUTSIDE RECORDS SUMMARY | 2024-11-05 16:08 | XMS_ITS | Encounter Summary ---
Author Organization [facility] Address [facility] [place] [address] Care Team Providers Care Ornithology Teacher Name Role Phone Adrian Lee MD Primary Care Provider [phone] Gladys Sanchez MD Unavailable [phone] Adrienne Marin MD Primary Care Provider [phone] Anna Landry RN Unavailable Unavailable Anna Landry RN Unavailable Unavailable Encounter Details Date Type Department Care Team (Late st Contact Info) Description 07/25/2022 Abstract [facility] BUSINESS OFFICE [address] [place] [id number] Abstract, Doc Cikda Social History Tobacco Use [...] Sex Assigned at Male 07/08/2024 7:30 AM ELECTRICAL MAINTENANCE TECHNICIAN Legal Sex Male 8:56 PM CDT Gender Identity Male 07/08/2024 7:30 AM ELECTRICAL MAINTENANCE TECHNICIAN Sexual Orientation Straight 07/08/2024 7: 30 AM ELECTRICAL MAINTENANCE TECHNICIAN COVID-19 Exposure Response Date Recorded In the last 10 days, have yo u been in contact with someone who was confirmed or suspected to have Coronavirus/COVID-19? No / Unsure 07/28/2022 2:26 PM ELECTRICAL MAINTENANCE TECHNICIAN documented as of this encounter Functional Status * RETIRED Are you deaf or do you have serious difficulty hearing Answer Date of Assessment Author Status Yes 06/14/2022 7:00 PM ELECTRICAL MAINTENANCE TECHNICIAN Activ e * RETIRED Are you blind or do you have serious difficulty seeing, even when wearing glasses? Answer Date of Assessment Author Status No 06/14/2022 7:00 PM ELECTRICAL MAINTENANCE TECHNICIAN Activ e * Do you have serious difficulty walking or climbing stairs? Answer Date of Assessment Author Status No 06/14/2022 7:00 PM ELECTRICAL MAINTENANCE TECHNICIAN Cathy Giles RN Active * Do you have difficulty dressing or bathing? Answer Date of Assessment Author Status No 06/14/2022 7:00 PM ELECTRICAL MAINTENANCE TECHNICIAN Cathy Giles RN Active * Because of a physical, mental, or emotional condition, do you have difficulty doing errands alone such as visiting a doctor's office or shopping? Answer Date of Assessment Author Status No 06/14/2022 7:00 PM ELECTRICAL MAINTENANCE TECHNICIAN Cathy Giles RN Active documented as of this encounter Mental Status * Because of a physical, mental, or emotional condition, do you have serious difficulty concentrating, remembering, or making decisions? Answer Entry Date Author Status No 06/14/2022 7:00 PM ELECTRICAL MAINTENANCE TECHNICIAN Cathy Giles RN Active documented in this encounter Plan of Treatment Upcoming Encounters Date Type Department Care Team (Late st Contact Info) Description 11/07/2024 1:30 PM CDT Appointment [facility] [place] [address] Adrienne Marin MD [address] [place] [phone] 11/07/2024 2:40 PM CDT Office Visit [facility] Endocrin[facility] - [address] [phone] Hannah Garrison MD [address] [place] [address] [place] [address] 11/10/2024 1:30 PM CDT Appointment [facility] [address] [place] [address] [place] [address] Adrienne Marin MD [address] [place] [phone] 11/12/2024 1:30 PM CDT Appointment [facility] [address] [place] [address] [place] [address] Adrienne Marin MD [address] [place] [phone] 11/14/2024 1:30 PM CDT Appointment [facility] [address] [place] [address] [place] [address] Adrienne Marin MD [address] [place] [phone] 11/18/2024 2:45 PM CDT Office Visit [facility] [address] [place], [place] [phone] Anders Palacio, COURTNEY Three [facility] [address] [place], [place] [address] 11/19/2024 1:30 PM CDT Appointment [facility] [address] [place] [address] [address] [place] [address] Adrienne Marin MD [address] [place] [phone] 11/21/2024 1:30 PM CDT Appointment [facility] [place] [address] Adrienne Marin MD [address] [place] [phone] 11/24/2024 1:30 PM CDT Appointment [facility] [address] [place] [address] [address] [place] [address] Adrienne Marin MD [address] [place] [phone] 11/26/2024 1:30 PM CDT Appointment [facility] [address] [place] [address] [address] [place] [address] Adrienne Marin MD [address] [place] [phone] 12/30/2024 11:30 AM CDT Office Visit [facility] [place] [address] [place] [address] Roc Fulton MD Three [facility] [address] [place] [address] 02/03/2025 11:00 AM CDT Office Visit [facility] Multispecialty Care - [facility] 3 [facility], [address] [place] [address] Nathan Lechuga MD [address] [place] [address] documented as of this encounter Goals Goal Patient Goal Type Associated Problems Recent Progress Patient-Stated? Author Patient will return to prior living situation and remain independent in ADLs upon discharge from hospital General No iDana Todd, property insurance agent - family caregiver with be involved in care transitions and discharge planning General No Nicole Cole RN Safety Patient/family will have appropriate support at home upon discharge General No Ayleen Garcia, GREEN END DEPARTMENT SUPERVISOR documented as of this encounter Visit Diagnoses Not on filedocumented in this encounter Additional Health Concerns Infection Onset Date Last Indicated Resolved Time COVID-19 Rule Out 05/13/2023 05/13/2023 05/13/2023 4:14 PM ELECTRICAL MAINTENANCE TECHNICIAN COVID-19 Rule Out 05/13/2023 05/13/2023 05/14/2023 1:35 AM ELECTRICAL MAINTENANCE TECHNICIAN COVID-19 Rule Out 07/08/2023 07/08/2023 07/08/2023 5:34 PM ELECTRICAL MAINTENANCE TECHNICIAN COVID-19 Rule Out 07/07/2024 07/07/2024 07/07/2024 7:39 AM ELECTRICAL MAINTENANCE TECHNICIAN Assessment Noted Time PHQ-9 Depression Total Score: 0 11/19/19 3:11 PM CDT documented as of this encounter Care Teams Ornithology Teacher Relationship Specialty Start Date End Date Adrian Lee MD [address] [place] [phone] PCP - General FAMILY PRACTICE 04/22/18 05/08/24 Adrienne Marin MD [address] [place] [phone] PCP - General INTERNAL MEDICINE 05/09/24 Gladys Sanchez MD [address] [place] [phone] Lynn Piano Regulator CARDIOVASCULAR DISEASE 05/28/19 Anna Landry, leak detector (Ambulatory) REGISTERED NURSE 10/29/24 11/02/24 Anna Landry leak detector (Ambulatory) REGISTERED NURSE 11/03/24 documented as of this encounter
--- OUTSIDE RECORDS SUMMARY | 2024-11-05 16:08 | XMS_ITS | Encounter Summary ---
Author Organization [place] Address [facility] [place] [address] Care Team Providers Care Numberer And Wirer Name Role Phone Adrian Lee MD Primary Care Provider [phone] Gladys Sanchez MD Unavailable [phone] Adrienne Marin MD Primary Care Provider [phone] Anna Landry RN Unavailable Unavailable Anna Landry RN Unavailable Unavailable Encounter Details Date Type Department Care Team (Late st Contact Info) Description 06/20/2022 Hospital Follow-up Call [facility] [address] [place] [address] Asia Weiner, RN Social History [...] Sex Assigned at Male 07/08/2024 7:30 AM CAKE BATTER MIXER Legal Sex Male 8:56 PM CDT Gender Identity Male 07/08/2024 7:30 AM CAKE BATTER MIXER Sexual Orientation Straight 07/08/2024 7: 30 AM CAKE BATTER MIXER COVID-19 Exposure Response Date Recorded In the last 10 days, have yo u been in contact with someone who was confirmed or suspected to have Coronavirus/COVID-19? No / Unsure 06/14/2022 6:51 PM CAKE BATTER MIXER documented as of this encounter Functional Status * RETIRED Are you deaf or do you have serious difficulty hearing Answer Date of Assessment Author Status Yes 06/14/2022 7:00 PM CAKE BATTER MIXER Activ e * RETIRED Are you blind or do you have serious difficulty seeing, even when wearing glasses? Answer Date of Assessment Author Status No 06/14/2022 7:00 PM CAKE BATTER MIXER Activ e * Do you have serious difficulty walking or climbing stairs? Answer Date of Assessment Author Status No 06/14/2022 7:00 PM CAKE BATTER MIXER Cathy Giles RN Active * Do you have difficulty dressing or bathing? Answer Date of Assessment Author Status No 06/14/2022 7:00 PM CAKE BATTER MIXER Cathy Giles RN Active * Because of a physical, mental, or emotional condition, do you have difficulty doing errands alone such as visiting a doctor's office or shopping? Answer Date of Assessment Author Status No 06/14/2022 7:00 PM CAKE BATTER MIXER Cathy Giles RN Active documented as of this encounter Mental Status * Because of a physical, mental, or emotional condition, do you have serious difficulty concentrating, remembering, or making decisions? Answer Entry Date Author Status No 06/14/2022 7:00 PM CAKE BATTER MIXER Cathy Giles RN Active documented in this encounter Plan of Treatment Upcoming Encounters Date Type Department Care Team (Late st Contact Info) Description 11/07/2024 1:30 PM CDT Appointment [facility] [address] [place] [address] Adrienne Marin MD [address] [place] [address] 11/07/2024 2:40 PM CDT Office Visit [facility] Diabetes and Endocrinology - [address] [phone] Hannah Garrison MD [address] [place], [place] [address]Je[place] [address] 11/10/2024 1:30 PM CDT Appointment [facility] [place] [address] Adrienne Marin MD [address] [place] [phone] 11/12/2024 1:30 PM CDT Appointment [facility] [place] [address] Adrienne Marin MD [address] [place] [phone] 11/14/2024 1:30 PM CDT Appointment [facility] [place] [address] Adrienne Marin MD [address] [place] [phone] 11/18/2024 2:45 PM CDT Office [facility], [facility] [address] [place] [address] Anders Palacio, COURTNEY Three [facility] [address] [place] [address] 11/19/2024 1:30 PM CDT Appointment [facility] [place] [address] Adrienne Marin MD [address] [place] [phone] 11/21/2024 1:30 PM CDT Appointment [facility] [place] [address] Adrienne Marin MD [address] [place] [phone] 11/24/2024 1:30 PM CDT Appointment [facility] [address] [place] [address] Adrienne Marin MD [address] [place] [phone] 11/26/2024 1:30 PM CDT Appointment [facility] [address] [place] [address] [address] [place] [address] Adrienne Mairn MD [address] [place] [phone] 12/30/2024 11:30 AM CDT Office Visit [facility], [place] [address] [place] [address] Roc Fulton MD Three [facility]. [place] [address] [place] [address] 02/03/2025 11:00 AM CDT Office Visit [facility] Multispecialty Care - [facility] [address] [facility], [address] [place] [phone] Nathan Lechuga MD [address] [place], [place] [phone] documented as of this encounter Goals Goal Patient Goal Type Associated Problems Recent Progress Patient-Stated? Author Patient will return to prior living situation and remain independent in ADLs upon discharge from hospital General No Diana Todd, casting chipper - family caregiver with be involved in care transitions and discharge planning General No Nicole Cole RN Safety Patient/family will have appropriate support at home upon discharge [facility] Ayleen Goyal, COMPLIANCE NURSE documented as of this encounter Visit Diagnoses Not on filedocumented in this encounter Additional Health Concerns Infection Onset Date Last Indicated Resolved Time Influenza - Seasonal 05/23/2022 05/23/2022 023 12:34 AM CAKE BATTER MIXER COVID-19 Rule Out 05/13/2023 05/13/2023 05/13/2023 4:14 PM CAKE BATTER MIXER COVID-19 Rule Out 05/13/2023 05/13/2023 05/14/2023 1:35 AM CAKE BATTER MIXER COVID-19 Rule Out 07/08/2023 07/08/2023 07/08/2023 5:34 PM CAKE BATTER MIXER COVID-19 Rule Out 07/07/2024 07/07/2024 07/07/2024 7:39 AM CAKE BATTER MIXER Assessment Noted Time PHQ-9 Depression Total Score: 0 11/19/19 22 3:11 PM CDT documented as of this encounter Care Teams Numberer And Wirer Relationship Specialty Start Date End Date Adrian Lee MD [address] [place] [phone] PCP - General FAMILY PRACTICE 04/22/18 05/08/24 Adrienne Marin MD [address] [place] [phone] PCP - General INTERNAL MEDICINE 05/09/24 Gladys Sanchez MD [address] [place] [phone] [place] Facilities Assistant CARDIOVASCULAR DISEASE 05/28/19 Anna Lnadry dyed raw stock blower feeder (Ambulatory) REGISTERED NURSE 10/29/24 11/02/24 Anna Landry RN Care Manager (Ambulatory) REGISTERED NURSE 11/03/24 documented as of this encounter
--- OUTSIDE RECORDS SUMMARY | 2024-11-05 16:08 | XMS_ITS | Encounter Summary ---
Author Organization [facility] Address Counts include 234 beds at the [facility] [place] [address] Care Team Providers Care Shale Miner Blasting Name Role Phone Gladys Sanchez MD Unavailable [phone] Adrienne Marin MD Primary Care Provider [phone] Anna Landry RN Unavailable Unavailable Anna Landry RN Unavailable Unavailable Encounter Details Date Type Department Care Team (Late st Contact Info) Description 10/13/2024 MAD Incubator Message Enc [facility] Call Center [address] [place] [phone] [facility] levETIRAcetam (KEPPRA) 750 MG tablet Social History Tobacco Use Types Packs/Day Years Used Date Smoking Tobacco: Never Passive Smoke Exposure: Never Smokeless Tobacco: Never Comments:non-smoker Alcohol Use Standard Drinks/Week Comments No 0 (1 standard drink = 0.6 oz pur e alcohol) [facility] Utilities Answer Date Recorded In the past 12 months has [employer], oil, or water [employer] threatened to shut off services in your [...] time in the past 12 m [facility], were you homeless or living in a jail (including now)? No 07/15/2024 Sex and Gender Information Value Date Recorded Sex Assigned at Male 07/08/2024 7:30 AM MULTIMEDIA DEVELOPER Legal Sex Male 8:56 PM CDT Gender Identity Male 07/08/2024 7:30 AM MULTIMEDIA DEVELOPER Sexual Orientation Straight 07/08/2024 7: 30 AM MULTIMEDIA DEVELOPER documented as of this encounter Functional Status [...] Info) Description 11/07/2024 1:30 PM CDT Appointment [facility] [facility] [place] [address] Adrienne Marin MD [address] [place] [address] 11/07/2024 2:40 PM CDT Office Visit [facility] Diabetes and Endocrinology - [place] [address] [place] [phone] Hannah Garrison MD [address] [place] [address] 11/10/2024 1:30 PM CDT Appointment [facility] [address] [place] [address] Adrienne Marin MD [address] [place] [phone] 11/12/2024 1:30 PM CDT Appointment [facility] [place] [address] Adrienne Marin MD [address] [place] [phone] 11/14/2024 1:30 PM CDT Appointment [facility] [place] [address] Adrienne Marin MD [address] [place] [phone] 11/18/2024 2:45 PM CDT Office Visit [facility] THREE [facility], [facility] [address] [place], [place] [address] Anders Palacio, COURTNEY Three [facility] [address] [place] [address] 11/19/2024 1:30 PM CDT Appointment [facility] [address] [place] [address] Adrienne Marin MD [address] [place] [phone] 11/21/2024 1:30 PM CDT Appointment [facility] [address] [place] [address] Adrienne Marin MD [address] [place] [phone] 11/24/2024 1:30 PM CDT Appointment [facility] [address] [place] [address] [address] [place] [address] Adrienne Marin MD [address] [place] [phone] 11/26/2024 1:30 PM CDT Appointment [facility] [address] [place] [address] [place] [address] Adrienne Marin MD [address] [place] [phone] 12/30/2024 11:30 AM CDT Office Visit [facility] THREE [facility], [facility] [address] [place] [address] Roc Fulton MD Three [facility]. [facility] [address] [place] [address] 02/03/2025 11:00 AM CDT Office Visit [facility] Multispecialty Care - [facility] 3 [facility], [address] [place] [address] Nathan Lechuga MD [address] [place] [address] documented as of this encounter Goals Goal Patient Goal Type Associated Problems Recent Progress Patient-Stated? Author Patient will return to prior living situation and remain independent in ADLs upon discharge from hospital General No Diana Todd, press operator carbon products - family caregiver with be involved in care transitions and discharge planning General No Nicole Cole, RN Safety Patient/family will have appropriate support at home upon discharge General No Ayleen Garcia, CUSTOMER DATA TECHNICIAN documented as of this encounter Visit Diagnoses Not on filedocumented in this encounter Additional Health Concerns Assessment Noted Time PHQ-9 Depression Total Score: 0 11/19/19 22 3:11 PM CDT documented as of this encounter Care Teams Shale Miner Blasting Relationship Specialty Start Date End Date Adrienne Marin MD [address] [place] [phone] PCP - General INTERNAL MEDICINE 05/09/24 Gladys Sanchez MD [place] Analytical Data Miner CARDIOVASCULAR DISEASE 05/28/19 Anna Landry RN Care Manager (Ambulatory) REGISTERED NURSE 10/29/24 11/02/24 Anna Landry RN Care Manager (Ambulatory) REGISTERED NURSE 11/03/24 documented as of this encounter
--- OUTSIDE RECORDS SUMMARY | 2024-11-05 16:08 | XMS_ITS | Encounter Summary ---
Author Organization [facility] Address [address] [place] [address] Care Team Providers Care Command And Control Officer Name Role Phone Adrian Lee MD Primary Care Provider [phone] Gladys Sanchez MD Unavailable [phone] Adrienne Marin MD Primary Care Provider Anna Landry RN Unavailable Unavailable Anna Landry RN Unavailable Unavailable Encounter Details Date Type Department Care Team (Late st Contact Info) Description 05/21/2023 Hospital Follow-up Call [facility] [address] [place] [address] Amanda Ohara, RN Social History Tobacco Use Types Packs/Day Years Used Date Smoking Tobacco: Never Passive Smoke Exposure: Never Smokeless Tobacco: Never Comments:non-smoker Alcohol Use Standard Drinks/Week Comments No 0 (1 standard drink = 0.6 oz pur e alcohol) [facility] Utilities Answer Date Recorded In the past 12 months has e [employer], gas, oil, or water [employer] threatened to shut off services in your [...] place to sleep or slept in a skilled nursing (including now)? No 05/13/2023 Sex and Gender Information Value Date Recorded Sex Assigned at Male 07/08/2024 7:30 AM WIENER PACKER Legal Sex Male 8:56 PM CDT Gender Identity Male 07/08/2024 7:30 AM WIENER PACKER Sexual Orientation Straight 07/08/2024 7: 30 AM WIENER PACKER documented as of this encounter Functional Status [...] 11/07/2024 1:30 PM CDT Appointment [facility] [place] [address] Adrienne Marin MD [address] [place] [phone] 11/07/2024 2:40 PM CDT Office Visit [facility] Diabetes and Endocrinology - [address] [phone] Hannah Garrison MD [address] [place] [address] [place], [place] [address] 11/10/2024 1:30 PM CDT Appointment Cardiopulmonary Rehab [address] [place] [address] Adrienne Marin MD [address] [place] [phone] 11/12/2024 1:30 PM CDT Appointment [facility] [address] [place] [address] Adrienne Marin MD [address] [place] [phone] 11/14/2024 1:30 PM CDT Appointment [place] [facility] [place] [address] Adrienne Marin MD [address] [place] [phone] 11/18/2024 2:45 PM CDT Office Visit [facility] THREE [facility], [facility] [address] [place] [address] Anders Palacio NP Three [facility] [address] [place] [address] 11/19/2024 1:30 PM CDT Appointment [place] [facility] [place] [address] Adrienne Marin MD [address] [place] [phone] 11/21/2024 1:30 PM CDT Appointment [place] [facility] [place] [address] Adrienne Marin MD [address] [place] [phone] 11/24/2024 1:30 PM CDT Appointment [place] [facility] [place] [address] Adrienne Marin MD [address] [place] [phone] 11/26/2024 1:30 PM CDT Appointment [facility] [address] [place] [address] Adrienne Marin MD [address] [place] [phone] 12/30/2024 11:30 AM CDT Office Visit [facility] THREE [facility], [place] [address] [place] [address] Roc Fulton MD Three [facility]. [place] [address] [place] [address] 02/03/2025 11:00 AM CDT Office Visit [facility] Multispecialty Care - [facility] 3 [facility], [address] [place] [phone] Nathan Lechuga MD [address] [place] [address] documented as of this encounter Goals Goal Patient Goal Type Associated Problems Recent Progress Patient-Stated? Author Patient will return to prior living situation and remain independent in ADLs upon discharge from hospital General No Diana Todd, door to door fundraising collector - family caregiver with be involved in care transitions and discharge planning General No Nicole Cole RN Safety Patient/family will have appropriate support at home upon discharge General No Ayleen Garcia, RELEASE OF INFORMATION SPECIALIST documented as of this encounter Visit Diagnoses Not on filedocumented in this encounter Additional Health Concerns Infection Onset Date Last Indicated Resolved Time COVID-19 Rule Out 07/08/2023 07/08/2023 07/08/2023 5:34 PM WIENER PACKER COVID-19 Rule Out 07/07/2024 07/07/2024 07/07/2024 7:39 AM WIENER PACKER Assessment Noted Time PHQ-9 Depression Total Score: 0 11/19/19 22 3:11 PM CDT documented as of this encounter Care Teams Command And Control Officer Relationship Specialty Start Date End Date Adrian Lee MD [address] [place] [phone] PCP - General FAMILY PRACTICE 04/22/18 05/08/24 Adrienne Marin MD [address] [place] [address] PCP - General INTERNAL MEDICINE 05/09/24 Gladys Sanchez MD [address] [place] [address] [place] Living Manager CARDIOVASCULAR DISEASE 05/28/19 Anna Landry, hand drawer in helper (Ambulatory) REGISTERED NURSE 10/29/24 11/02/24 Anna Landry, hand drawer in helper (Ambulatory) REGISTERED NURSE 11/03/24 documented as of this encounter
--- OUTSIDE RECORDS SUMMARY | 2024-11-05 16:09 | XMS_ITS | Encounter Summary ---
Author Organization [facility] Address [facility] [place] [address] Care Team Providers Care Ranch Cook Name Role Phone Gladys Sanchez MD Unavailable [phone] Adrienne Marin MD Primary Care Provider [phone] Anna Landry RN Unavailable Unavailable Anna Landry RN Unavailable Unavailable Reason for Visit * Reason Onset Date Comments TCM 10/31/2024 [facility] 10/26/24 - 10/30 Encounter Details Date Type Department Care Team (Late st Contact Info) Description 10/31/2024 Patient Outreach [address] [address] Anna Landry, RN TCM (ABRAM 10/26/24 - 10/30/24) Social History Tobacco Use Types Packs/Day Years Used Date Smoking Tobacco: Never Passive Smoke Exposure: Never Smokeless Tobacco: Never Comments:non-smoker Alcohol Use Standard Drinks/Week Comments No 0 (1 standard drink = 0.6 oz pur e alcohol) [facility] Utilities Answer Date Recorded In the past 12 months has ait[employer], gas, oil, or water [employer] threatened to shut off services in your [...] place to sleep or slept in a mcfp (including now)? No 05/13/2023 Housing Stability Vital Sign Answer Jayden e Recorded In the last 12 months, was t here a time when you were not able to pay the mortgage or rent on time? No 10/26/2024 In the past 12 months, how m any times have you moved where you were living? 0 10/26/2024 At any time in the past 12 m [facility], were you homeless or living in a mcfp (including now)? No 10/26/2024 Sex and Gender Information Value Date Recorded Sex Assigned at Male 07/08/2024 7:30 AM MARINE ENGINEER CPVEC Legal Sex Male 8:56 PM CDT Gender Identity Male 07/08/2024 7:30 AM MARINE ENGINEER CPVEC Sexual Orientation Straight 07/08/2024 7: 30 AM MARINE ENGINEER CPVEC documented as of this encounter Functional Status [...] CDT Appointment Cardiopulmonary Rehab [address] [place] [address] Adrienne Marin MD [address] [place] [phone] 11/07/2024 2:40 PM CDT Office Visit [facility] Diabetes and Endocrinology - [place] [address] [place] [phone] Hannah Garrison MD [facility] [place] [address] 11/10/2024 1:30 PM CDT Appointment [place] [facility] [address] [place] [address] Adrienne Marin MD [address] [place] [phone] 11/12/2024 1:30 PM CDT Appointment [place] [facility] [address] [place] [address] Adrienne Marin MD [address] [place] [phone] 11/14/2024 1:30 PM CDT Appointment [place] [facility] [address] [place] [address] Adrienne Marin MD [address] [place] [phone] 11/18/2024 2:45 PM CDT Office Visit [place] [facility] THREE [facility], [facility] [address] [place] [address] Anders Palacio NP Three [facility] [address] [place] [address] 11/19/2024 1:30 PM CDT Appointment [place] [facility] [address] [facility] [place] [address] Adrienne Marin MD [address] [place] [phone] 11/21/2024 1:30 PM CDT Appointment [place] [facility] [address] [place] [address] Adrienne Marin MD [address] [place] [phone] 11/24/2024 1:30 PM CDT Appointment [place] [facility] [address] [place] [address] Adrienne Marin MD [address] [place] [phone] 11/26/2024 1:30 PM CDT Appointment [place] [facility] [place] [address] Adrienne Marin MD [address] [place] [phone] 12/30/2024 11:30 AM CDT Office Visit [place] [facility] THREE [facility], [facility] [address] [place] [address] Roc Fulton MD Three [facility]. [facility] [address] [place] [address] 02/03/2025 11:00 AM CDT Office Visit [facility] Multispecialty Care - [facility] 3 [facility], [address] [place] [phone] Nathan Lechuga MD [address] [place] [address] documented as of this encounter Goals Goal Patient Goal Type Associated Problems Recent Progress Patient-Stated? Author Patient will return to prior living situation and remain independent in ADLs upon discharge from hospital General No Diana Todd, insulation worker interior surface - family caregiver with be involved in care transitions and discharge planning General No Nicole Cole RN Safety Patient/family will have appropriate support at home upon discharge General No Ayleen Garcia DRAW BENCH OPERATOR HELPER documented as of this encounter Visit Diagnoses Not on filedocumented in this encounter Additional Health Concerns Assessment Noted Time PHQ-9 Depression Total Score: 0 11/19/19 22 3:11 PM CDT documented as of this encounter Care Teams Ranch Cook Relationship Specialty Start Date End Date Adrienne Marin MD [address] [place] [phone] PCP - General INTERNAL MEDICINE 05/09/24 Gladys Sanchez MD [place] Clinical Manager CARDIOVASCULAR DISEASE 05/28/19 Anna Landry RN Care Manager (Ambulatory) REGISTERED NURSE 10/29/24 11/02/24 Anna Landry RN Care Manager (Ambulatory) REGISTERED NURSE 11/03/24 documented as of this encounter
--- OUTSIDE RECORDS SUMMARY | 2024-11-05 16:09 | XMS_ITS | Encounter Summary ---
Author Organization [facility] Address [facility] [place] [address] Care Team Providers Care Piano Bench Assembler Name Role Phone Adrian Lee MD Primary Care Provider [phone] Gladys Sanchez MD Unavailable Adrienne Marin MD Primary Care Provider [phone] Anna Landry RN Unavailable Unavailable Anna Lanrdy RN Unavailable Unavailable Encounter Details Date Type Department Care Team (Late st Contact Info) Description 10/26/2020 Abstract [facility] [address] [place] [address] Social History Tobacco Use Types Packs/Day Years [...] Sex Assigned at Male 07/08/2024 7:30 AM ACCOUNTS PAYABLE ANALYST Legal Sex Male 8:56 PM CDT Gender Identity Male 07/08/2024 7:30 AM ACCOUNTS PAYABLE ANALYST Sexual Orientation Straight 07/08/2024 7: 30 AM ACCOUNTS PAYABLE ANALYST COVID-19 Exposure Response Date Recorded In the last month, have you been in contact with someone who was confirmed or suspected to have Coronavirus / COVID-19? No / Unsure 10/02/2020 11:49 AM CDT documented as of this encounter Plan of Treatment Upcoming Encounters Date Type Department Care Team (Late st Contact Info) Description 11/07/2024 1:30 PM CDT Appointment Cardiopulmonary Rehab [address] [place] [address] Adrienne Marin MD [address] [place] [phone] 11/07/2024 2:40 PM CDT Office Visit [facility] Diabetes and Endocrinology - [place] [address] [place] [phone] Hannah Garrison MD [address] [place] [address] 11/10/2024 1:30 PM CDT Appointment [facility] [place] [address] Adrienne Marin MD [address] [place] [phone] 11/12/2024 1:30 PM CDT Appointment Cardiop[facility] [place] [address] Adrienne Marin MD [address] [place] [phone] 11/14/2024 1:30 PM CDT Appointment [facility] [place] [address] Adrienne Marin MD [address] [place] [phone] 11/18/2024 2:45 PM CDT Office Visit [place] [facility] [address] [place] [address] Anders Palacio NP Three [facility] [address] [place] [address] 11/19/2024 1:30 PM CDT Appointment [facility] [address] [place] [address] [address] [place] [address] Adrienne Marin MD [address] [place] [phone] 11/21/2024 1:30 PM CDT Appointment [facility] [address] [place], [place] [address], [place] [address] Adrienne Marin MD [address] [place] [phone] 11/24/2024 1:30 PM CDT Appointment [facility] [place] [address] Adrienne Marin MD [address] [place] [phone] 11/26/2024 1:30 PM CDT Appointment [facility] [address] [place], [place] [address], [place] [address] Adrienne Marin MD [address] [place] [phone] 12/30/2024 11:30 AM CDT Office Visit [place] [facility] [address] [place] [address] Roc Fulton MD Three [facility]. [facility] [address] [place] [address] 02/03/2025 11:00 AM CDT Office Visit [facility] Multispecialty Care - [facility] 3 [facility], [address] [place] [phone] Nathan Lechuga MD [address] [place] [address] documented as of this encounter Visit Diagnoses Not on filedocumented in this encounter Additional Health Concerns Infection Onset Date Last Indicated Resolved Time COVID-19 Rule Out 07/19/2021 07/19/2021 07/19/2021 9:17 PM ACCOUNTS PAYABLE ANALYST COVID-19 Rule Out 07/19/2021 07/19/2021 07/20/2021 7:01 PM ACCOUNTS PAYABLE ANALYST COVID-19 Rule Out 08/18/2021 08/18/2021 08/18/2021 12:03 PM ACCOUNTS PAYABLE ANALYST COVID-19 Confirmed 08/18/2021 08/18/2021 12:32 AM CDT COVID-19 Rule Out 09/13/2021 09/13/2021 09/13/2021 5:00 AM CDT COVID-19 Rule Out 05/23/2022 05/23/2022 05/23/2022 3:38 PM ACCOUNTS PAYABLE ANALYST Influenza - Seasonal 05/23/2022 05/23/2022 023 12:34 AM ACCOUNTS PAYABLE ANALYST COVID-19 Rule Out 05/13/2023 05/13/2023 05/13/2023 4:14 PM ACCOUNTS PAYABLE ANALYST COVID-19 Rule Out 05/13/2023 05/13/2023 05/14/2023 1:35 AM ACCOUNTS PAYABLE ANALYST COVID-19 Rule Out 07/08/2023 07/08/2023 07/08/2023 5:34 PM ACCOUNTS PAYABLE ANALYST COVID-19 Rule Out 07/07/2024 07/07/2024 07/07/2024 7:39 AM ACCOUNTS PAYABLE ANALYST documented as of this encounter Care Teams Piano Bench Assembler Relationship Specialty Start Date End Date Adrian Lee MD [address] [place] [address] PCP - General FAMILY PRACTICE 04/22/18 05/08/24 Adrienne Marin MD [address] [place] [phone] PCP - General INTERNAL MEDICINE 05/09/24 Gladys Sanchez MD [address] [place] [phone] [place] Janitor Supervisor CARDIOVASCULAR DISEASE 05/28/19 Anna Landry, door to door fundraising collector (Ambulatory) REGISTERED NURSE 10/29/24 11/02/24 Anna Landry RN Care Manager (Ambulatory) REGISTERED NURSE 11/03/24 documented as of this encounter
--- OUTSIDE RECORDS SUMMARY | 2024-11-05 16:09 | XMS_ITS | Encounter Summary ---
Author Organization [facility] Address [facility] [place] [address] Care Team Providers Care Clinical Lab Technologist Name Role Phone Adrian Lee MD Primary Care Provider [phone] Gladys Sanchez MD Unavailable [phone] Adrienne Marin MD Primary Care Provider [phone] Anna Landry RN Unavailable Unavailable Anna Landry RN Unavailable Unavailable Encounter Details Date Type Department Care Team (Late st Contact Info) Description 01/24/2023 Abstract [facility] [address] [place] [address] Flakito Hernandez MD Social History Tobacco Use [...] Sex Assigned at Male 07/08/2024 7:30 AM CONTACT ASSEMBLER Legal Sex Male 8:56 PM CDT Gender Identity Male 07/08/2024 7:30 AM CONTACT ASSEMBLER Sexual Orientation Straight 07/08/2024 7: 30 AM CONTACT ASSEMBLER documented as of this encounter Functional Status * RETIRED Are you deaf or do you have serious difficulty hearing Answer Date of Assessment Author Status Yes 06/14/2022 7:00 PM CONTACT ASSEMBLER Activ e * RETIRED Are you blind or do you have serious difficulty seeing, even when wearing glasses? Answer Date of Assessment Author Status No 06/14/2022 7:00 PM CONTACT ASSEMBLER Activ e * Do you have serious [...] 11/07/2024 1:30 PM CDT App[facility] [place] [address] Adrienne Marin MD [address] [place] [phone] 11/07/2024 2:40 PM CDT Office Visit [facility] Medical Group Diabetes and Endocrinology - [address] [phone] Hannah Garrison MD [address] [place], [place] [address] [place], [place] [address] 11/10/2024 1:30 PM CDT Appointment Cardiop[facility] Rehab [address] [place] [address] Adrienne Marin MD [address] [place] [phone] 11/12/2024 1:30 PM CDT Appointment [facility] [facility] [address] [place] [address] Adrienne Marin MD [address] [place] [phone] 11/14/2024 1:30 PM CDT Appointment [facility] [address] [place] [address] [place] [address] Adrienne Marin MD [address] [place] [phone] 11/18/2024 2:45 PM CDT Office Visit [facility], [address] [address] Anders Palacio, COURTNEY [facility] [address] [place] [address] 11/19/2024 1:30 PM CDT Appointment [facility] Cardiopulmonary Rehab [facility] [place] [address] Adrienne Marin MD [address] [place] [phone] 11/21/2024 1:30 PM CDT Appointment [facility] Card[facility] Re[facility] [place] [address] Adrienne Marin MD [address] [place] [phone] 11/24/2024 1:30 PM CDT Appointment [facility] [address] [place] [address] Adrienne Marin MD [address] [place] [phone] 11/26/2024 1:30 PM CDT Appointment [facility] Card[facility] Rehab [address] [place] [address] [address] [place] [address] Adrienne Marin MD [address] [place] [phone] 12/30/2024 11:30 AM CDT Office Visit [facility] [place] [address] [place] [address] Roc Fulton MD Three [facility]. [place] [address] [place] [address] 02/03/2025 11:00 AM CDT Office Visit [facility] Medical Group Multispecialty Care - [facility] 3 [facility], [address] [place] [phone] Nathan Lechuga MD [address] [place] [address] documented as of this encounter Goals Goal Patient Goal Type Associated Problems Recent Progress Patient-Stated? Author Patient will return to prior living situation and remain independent in ADLs upon discharge from hospital General No Diana Todd, children's attendant - family caregiver with be involved in care transitions and discharge planning General No Nicole Cole RN Safety Patient/family will have appropriate support at home upon discharge General No Ayleen Garcia, LITHOPONE CHARGER documented as of this encounter Visit Diagnoses Not on filedocumented in this encounter Additional Health Concerns Infection Onset Date Last Indicated Resolved Time COVID-19 Rule Out 05/13/2023 05/13/2023 05/13/2023 4:14 PM CONTACT ASSEMBLER COVID-19 Rule Out 05/13/2023 05/13/2023 05/14/2023 1:35 AM CONTACT ASSEMBLER COVID-19 Rule Out 07/08/2023 07/08/2023 07/08/2023 5:34 PM CONTACT ASSEMBLER COVID-19 Rule Out 07/07/2024 07/07/2024 07/07/2024 7:39 AM CONTACT ASSEMBLER Assessment Noted Time PHQ-9 Depression Total Score: 0 11/19/19 3:11 PM CDT documented as of this encounter Care Teams Clinical Lab Technologist Relationship Specialty Start Date End Date Adrian Lee MD [address] [place] [address] PCP - General FAMILY PRACTICE 04/22/18 05/08/24 Adrienne Marin MD [address] [place] [address] PCP - General INTERNAL MEDICINE 05/09/24 Gladys Sanchez MD [address] [place] [address] [place] Biology Specialist CARDIOVASCULAR DISEASE 05/28/19 Anna Landry wool presser (Ambulatory) REGISTERED NURSE 10/29/24 11/02/24 Anna Landry wool presser (Ambulatory) REGISTERED NURSE 11/03/24 documented as of this encounter
--- OUTSIDE RECORDS SUMMARY | 2024-11-05 16:09 | XMS_ITS | Clinical Summary ---
Author Organization [facility] Address [address] [place] [address] Care Team Providers Care Taxi Driver Name Role Phone Gladys Sanchez MD Unavailable [phone] Adrienne Marin MD Primary Care Provider [phone] Anna Landry RN Unavailable Unavailable Allergies Active [...] NEEDLES 31G X 5 MM [facility] [place] TWICE DAILY TO INJECT LANTUS AND VICTOZA 023 Active pantoprazole EC (PROTONIX) 40 MG tablet Take 1 tablet (40 mg total) by mouth daily for 30 days. 30 tablet 023 Active NEBULIZER/TUBIN G/MOUTHPIECE KIT, DME,Indications :Acute on chronic diastolic congestive heart failure ([facility] HHS/HCC),Camarena ry artery disease involving [place] coronary artery of [place] heart without angina pectoris Nebulizer machine with all tubing Dx CHF exacerbation and Pneumonia 1 kit 023 Active insulin NPH isophane & regular (NOVOLIN 70/30 FLEXPEN) (70-30) 100 UNIT/ML injection (pen)Indication s:Type 2 diabetes mellitus with stage 3b chronic kidney disease, with long-term current use of insulin ([facility] HHS/HCC) ADMINISTER 35 UNITS UNDER THE SKIN [...] -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 ([facility] HHS/HCC) Take 1 tablet (750 mg total) [...] disease, with long-term current use of insulin ([facility] HHS/HCC) TAKE 1 TABLET BY MOUTH DAILY [...] Problem Noted Date Diagnosed Date Respiratory failure ([facility]) 10/26/2024 Encephalopathy 07/06/2024 NSTEMI (non-ST elevated myoc ardial infarction) ([facility]) 05/13/2023 Stage 3b chronic kidney disease 01/03/2023 Hyperuricemia w/o signs of i nflam arthrit and tophaceous dis 07/20/2022 Hypomagnesemia 03/20/2022 Benign prostatic hyperplasia without lower urinary tract symptoms 01/09/2022 Iron deficiency anemia 08/16/2021 S/P angioplasty with stent 04/26/2018 Chronic diastolic congestive heart failure ([facility]) 04/26/2018 Type 2 diabetes mellitus wit h stage 3b chronic kidney disease, with long-term current use of insulin ([facility]) 07/19/2017 Hypertension, essential Dyslipidemia CAD (coronary artery disease) Resolved Problems Problem Noted Date Diagnosed Date Resolved Date NSTEMI (non-ST elevated myoc ardial infarction) ([facility]) 06/14/2022 05/07/2023 Edema, unspecified type 03/20/2022 05/09/2023 Hypokalemia 01/09/2022 05/07/2023 Diabetes mellitus without co mplication ([facility]) 01/09/2022 04/01/2022 Intracranial bleed ([facility]) 10/09/2021 11/18/2021 Dizziness 10/08/2021 11/18/2021 Acute respiratory failure ([facility]) 08/18/2021 11/18/2021 Pneumonia due to COVID-19 virus [...] Care Team Description 10/31/2024 Hospital Follow-up Call [facility] [address] Niesha Love LPN Follow Up Call ([facility] 10/26-10/30/24) 10/31/2024 Patient Outreach [facility], [address] [address] Anna Landry RN TCM ([facility] 10/26/24 - 10/30/24) 10/30/2024 Orders Only [facility], [address] [address] Roc Fulton MD 10/29/2024 Travel 10/29/2024 Patient Outreach [facility], [address] [address] Anna Landry RN Hospital Follow Up ([facility] Admission notification ) 10/28/2024 Travel 10/26/2024 12:49 AM CDT - 10/30/2024 12:31 PM CDT Hospital Encounter [facility] [address] Ester Ramos MD Suresh, MD Jayla Alarcon Kandace C, MD McGowen, Payton K, MD Discharge Disposition: Home or Self Care (Routine Discharge) 10/24/2024 1:28 PM CDT - 10/24/2024 11:59 PM CDT Hospital Encounter [facility] [address] [place] [address] [place] [address] Adrienne Marin MD Discharge Disposition: Home or Self Care (Routine Discharge) 10/24/2024 Travel 10/22/2024 1:21 PM CDT - 10/22/2024 11:59 PM CDT Hospital Encounter [facility] [address] [place] [address] [place] [address] Adrienne Marin MD Discharge Disposition: Home or Self Care (Routine Discharge) 10/22/2024 Travel 10/20/2024 1:22 PM CDT - 10/20/2024 11:59 PM CDT Hospital Encounter [facility] [address] [place] [address] [place] [address] Adrienne Marin MD Discharge Disposition: Home or Self Care (Routine Discharge) 10/20/2024 Travel 10/17/2024 1:18 PM CDT - 10/17/2024 11:59 PM CDT Hospital Encounter [facility] [address] [place] [address] [place] [address] Adrienne Marin MD Discharge Disposition: Home or Self Care (Routine Discharge) 10/17/2024 Travel 10/13/2024 1:23 PM CDT - 10/13/2024 11:59 PM CDT Hospital Encounter [facility] [address] [place] [address] [place] [address] Adrienne Marin MD Discharge Disposition: Home or Self Care (Routine Discharge) 10/13/2024 Telephone [facility] [place] [address] [place] [address] Nathan Lechuga MD Medication 10/13/2024 Travel 10/13/2024 MyChart Message Enc [facility] Call Center [address] [place] [address] [place] Provider levETIRAcetam (KEPPRA) 750 MG tablet 10/10/2024 1:28 PM CDT - 10/10/2024 11:59 PM CDT Hospital Encounter [facility] [address] [place] [address] Adrienne Marin MD Discharge Disposition: Home or Self Care (Routine Discharge) 10/10/2024 Travel 10/08/2024 1:21 PM CDT - 10/08/2024 11:59 PM CDT Hospital Encounter [facility] [address] [place] [address] Adrienne Marin MD Discharge Disposition: Home or Self Care (Routine Discharge) 10/08/2024 Travel 10/03/2024 1:29 PM CDT - 10/03/2024 11:59 PM CDT Hospital Encounter [facility] [address] [place] [address] Adrienne Marin MD Discharge Disposition: Home or Self Care (Routine Discharge) 10/03/2024 Travel 10/01/2024 1:18 PM CDT - 10/01/2024 11:59 PM CDT Hospital Encounter [facility] [address] [place] [address] Adrienne Marin MD Discharge Disposition: Home or Self Care (Routine Discharge) 10/01/2024 Travel 09/29/2024 1:19 PM CDT - 09/29/2024 11:59 PM CDT Hospital Encounter [facility] [address] [place] [address] Adrienne Marin MD Discharge Disposition: Home or Self Care (Routine Discharge) 09/29/2024 Travel 09/26/2024 1:25 PM CDT - 09/26/2024 11:59 PM CDT Hospital Encounter [facility] [address] [place] [address] Adrienne Marin MD Discharge Disposition: Home or Self Care (Routine Discharge) 09/26/2024 Travel 09/24/2024 1:30 PM CDT - 09/24/2024 11:59 PM CDT Hospital Encounter [facility] [address] [place] [address] Adrienne Marin MD Discharge Disposition: Home or Self Care (Routine Discharge) 09/24/2024 Travel 09/19/2024 1:16 PM CDT - 09/19/2024 11:59 PM CDT Hospital Encounter [facility] [address] [facility] [place] [address] Adrienne Marin MD Discharge Disposition: Home or Self Care (Routine Discharge) 09/19/2024 Travel 09/17/2024 1:30 PM CDT - 09/17/2024 11:59 PM CDT Hospital Encounter [facility] [address] [place] [address] [place] [address] Adrienne Marin MD Discharge Disposition: Home or Self Care (Routine Discharge) 09/17/2024 Travel 09/15/2024 1:25 PM CDT - 09/15/2024 11:59 PM CDT Hospital Encounter [facility] [address] [place] [address] [place] [address] Adrienne Marin MD Discharge Disposition: Home or Self Care (Routine Discharge) 09/15/2024 Travel 09/12/2024 1:19 PM CDT - 09/12/2024 11:59 PM CDT Hospital Encounter [facility] [facility] [place] [address] Adrienne Marin MD Discharge Disposition: Home or Self Care (Routine Discharge) 09/12/2024 Telephone [facility] - [address] [place] [address] Nathan Lechuga MD Results 09/12/2024 Travel 09/10/2024 1:29 PM CDT - 09/10/2024 11:59 PM CDT Hospital Encounter [facility] [address] [place] [address] [place] [address] Adrienne Marin MD Discharge Disposition: Home or Self Care (Routine Discharge) 09/10/2024 Travel 09/08/2024 1:21 PM CDT - 09/08/2024 11:59 PM CDT Hospital Encounter [facility] [address] [facility] [place] [address] Adrienne Marin MD Discharge Disposition: Home or Self Care (Routine Discharge) 09/08/2024 Travel 09/05/2024 1:59 PM CDT - 09/05/2024 4:10 PM CDT Emergency [facility] [address] [facility] [place] [address] Zhanna Reid MD Hyperglycemia Discharge Disposition: Home or Self Care (Routine Discharge) 09/05/2024 1:30 PM CDT - 09/05/2024 1:58 PM CDT Hospital Encounter [facility] [address] [place] [address] [place] [address] Adrienne Marin MD Discharge Disposition: Home or Self Care (Routine Discharge) 09/05/2024 Telephone [facility] Diabetes and Endocrinology - [address] [address] Hannah Garrison MD Blood Sugar Reporting (Elevated blood sugar >500 at cardiac rehab) 09/05/2024 Travel 09/03/2024 1:23 PM CDT - 09/03/2024 11:59 PM CDT Hospital Encounter [facility] [address] [facility] [place] [address] Adrienne Marin MD Discharge Disposition: Home or Self Care (Routine Discharge) 09/03/2024 Travel 09/01/2024 11:30 AM CDT Office Visit [facility], [address] [address] Anders Palacio NP Hospital Discharge 09/01/2024 Travel 08/22/2024 1:24 PM [employer]ESPERSON [employer] - 08/22/2024 11:59 PM SALESPERSON [employer]OM[employer] Hospital Encounter [facility] [address] [facility] [place] [address] Adrienne Marin MD Discharge Disposition: Home or Self Care (Routine Discharge) 08/22/2024 Travel 08/18/2024 1:30 PM SALESPERSON [employer]OM[employer] - 08/18/2024 11:59 PM SALESPERSON [employer]OM[employer] Hospital Encounter [facility] [address] [facility] [place] [address] Adrienne Marin MD Discharge Disposition: Home or Self Care (Routine Discharge) 08/18/2024 Travel 08/15/2024 9:55 AM SALESPERSON AUTOMOBILES - 08/15/2024 11:59 PM SALESPERSON AUTOMOB[employer] Hospital Encounter [facility] [address] [facility] [place] [address] Adrienne Marin MD Discharge Disposition: Home or [...] = 0.6 oz pur e alcohol) [facility] Utilities Answer Date Recorded In the past 12 months has [facility] [employer] gas, oil, or water [employer] threatened to shut off services in your [...] any time in the past 12 m [facility], were you homeless or living in a senior living (including now)? No 10/26/2024 Sex and Gender Information Value Date Recorded Sex Assigned at Male 07/08/2024 7:30 AM [employer] Legal Sex Male 8:56 PM CDT Gender Identity Male 07/08/2024 7:30 AM [employer] Sexual Orientation Straight 07/08/2024 7: 30 AM [employer]ESPERSON [employer] Last Filed Vital Signs Vital Sign Reading [...] PM CDT Appointment Cardiop[facility] Rehab [address] [place], [place] [id number] Adrienne Marin MD [address] [place] [address] 11/07/2024 2:40 PM CDT Office Visit [facility] Diabetes and Endocrinology - [address] [address] Hannah Garrison MD [address] [place], [place] [address] [place], [place] [address] 11/10/2024 1:30 PM CDT Appointment Cardiop[facility] Rehab [address] [place], [place] [address] Adrienne Marin MD [address] [place] [address] 11/12/2024 1:30 PM CDT Appointment [facility] [address] [place] [address] Adrienne Marin MD [address] [place] [phone] 11/14/2024 1:30 PM CDT Appointment [facility] [place] [address] Adrienne Marin MD [address] [place] [phone] 11/18/2024 2:45 PM CDT Office Visit [facility] [address] [address] Anders Palacio, COURTNEY [place] [address] [place] [address] 11/19/2024 1:30 PM CDT Appointment [facility] [place] [address] Adrienne Marin MD [address] [place] [phone] 11/21/2024 1:30 PM CDT Appointment [facility] [place] [address] Adrienne Marin MD [address] [place] [phone] 11/24/2024 1:30 PM CDT Appointment [facility] [address] [facility] [place] [address] [place] [address] Adrienne Marin MD [address] [place] [address] 11/26/2024 1:30 PM CDT Appointment [facility] [address] [facility] [place] [address] [place] [address] Adrienne Marin MD [address] [place] [address] 12/30/2024 11:30 AM CDT Office Visit [facility], [address] [place] [address] Roc Fulton MD Three [facility]. [address] [place] [address] 02/03/2025 11:00 AM CDT Office Visit [facility], [address] [place] [address] Nathan Lechuga MD [address] [place] [address] Health Maintenance Due Date Last Done Comments ASCVD Statin 1950 Diabetes: Retinopathy Eye Exam 1970 Hepatitis C 1970 DTaP, Tdap and Td Vaccines (1 - Tdap) 10/24/1971 Zoster Vaccines (1 of 2) 2002 RSV Immunization or 60+ Years (1 - Risk 60-74 years 1-dose series) 2012 Annual Medicare Wellness Visit 2017 COVID-19 Vaccine ( season) 2024 10/01/2020, 09/01/2020 PHQ-2 (Physician [place]) 06/25/2024 05/09/2024 Kidney Health Evaluation 04/25/2025 04/25/2024 [...] discharge from hospital General No Diana Todd, process control supervisor - family caregiver with be involved in care transitions and discharge planning General No Nicole Cole RN Safety Patient/family will have appropriate support at home upon discharge General No Ayleen Garcia, WATER SOFTENER INSTALLER Procedures Procedure Name Priority Date/Time Associated Diagnosis [...] HEPARIN, ANTI XA, UFH TIMED 10/27/2024 2:38 [id number]|2024-11-05 16:09:00|2024-11-05 16:08:00|XMS_ITS|ROS BOLANOS|External Medical Summaries|[id number]|" Encounter Summary Created on: November 05, 2024 Mr. Craig Pool : 1950 Sex: Male Author Organization [facility] Address [address] [place] [address] Care Team Providers Care Taxi Driver Name Role Phone Pee Lafleur MD Unavailable Unavailable Adrain Lee MD Primary Care Provider [phone] Gladys Sanchez MD Unavailable [phone] Adrienne Marin MD Primary Care Provider [phone] Anna Landry RN Unavailable Unavailable Anna Landry RN Unavailable Unavailable Encounter Details Date Type Department Care Team (Late st Contact Info) Description 11/30/2018 Abstract [facility] [address] [place] [address] , Generic Conversion, Social History Tobacco Use Types Packs/Day Years Used Date Smoking Tobacco: Never Smokeless Tobacco: Never Sex and Gender Information Value Date Recorded Sex Assigned at Male 07/08/2024 7:30 AM [employer]ESPERSON [employer] Legal Sex Male 8:56 PM CDT Gender Identity Male 07/08/2024 7:30 AM SALESPERSON [employer] Sexual Orientation Straight 07/08/2024 7: 30 AM SALESPERSON [employer] documented as of this encounter Plan of Treatment Upcoming Encounters Date Type Department Care Team (Late Contact Info) Description 11/07/2024 1:30 PM CDT Appointment Cardiopulmonary Rehab [address] [place] [address] Adrienne Marin MD [address] [place] [address] 11/07/2024 2:40 PM CDT Office Visit [facility] Diabetes and Endocrinology - [address] [phone] Hannah Garrison MD [address] [facility] [place], [place] [address] 11/10/2024 1:30 PM CDT Appointment [facility] [address] [place] [address] Adrienne Marin MD [address] [place] [phone] 11/12/2024 1:30 PM CDT Appointment [facility] [place] [address] Adrienne Marin MD [address] [place] [phone] 11/14/2024 1:30 PM CDT Appointment [facility] [place] [address] Adrienne Marin MD [address] [place] [phone] 11/18/2024 2:45 PM CDT Office Visit [facility], [facility] [address] [place], [place] [address] Anders Palacio, COURTNEY Three [facility] [address] [place] [address] 11/19/2024 1:30 PM CDT Appointment [facility] [place] [address] Adrienne Marin MD [address] [place] [phone] 11/21/2024 1:30 PM CDT Appointment [facility] [address] [facility] [place] [address] Adrienne Marin MD [address] [place] [phone] 11/24/2024 1:30 PM CDT Appointment [facility] [address] [place] [address] [place] [address] Adrienne Marin MD [address] [place] [phone] 11/26/2024 1:30 PM CDT Appointment [facility] [address] [place] [address] [place] [address] Adrienne Marin MD [address] [place] [phone] 12/30/2024 11:30 AM CDT Office Visit [facility], [facility] [address] [place] [address] Roc Fulton MD Three [facility]. [facility] [address] [place] [address] 02/03/2025 11:00 AM CDT Office Visit [facility] - [facility] [address] [facility], [address] [place] [address] Nathan Lechuga MD [address] [place] [address] documented as of this encounter Visit Diagnoses Not on filedocumented in this encounter Additional Health Concerns Infection Onset Date Last Indicated Resolved Time COVID-19 Rule Out 07/19/2021 07/19/2021 07/19/2021 9:17 PM [employer] COVID-19 Rule Out 07/19/2021 07/19/2021 07/20/2021 7:01 PM [employer] COVID-19 Rule Out 08/18/2021 08/18/2021 08/18/2021 12:03 PM [employer]ERSON [employer] COVID-19 Confirmed 08/18/2021 08/18/2021 12:32 AM CDT COVID-19 Rule Out 09/13/2021 09/13/2021 09/13/2021 5:00 AM CDT COVID-19 Rule Out 05/23/2022 05/23/2022 05/23/2022 3:38 PM [employer] Influenza - Seasonal 05/23/2022 05/23/2022 023 12:34 AM [employer]ESPERSON [employer] COVID-19 Rule Out 05/13/2023 05/13/2023 05/13/2023 4:14 PM [employer]ERSON [employer] COVID-19 Rule Out 05/13/2023 05/13/2023 05/14/2023 1:35 AM [employer]ESPERSON [employer] COVID-19 Rule Out 07/08/2023 07/08/2023 07/08/2023 5:34 PM [employer]ESPERSON [employer] COVID-19 Rule Out 07/07/2024 07/07/2024 07/07/2024 7:39 AM [employer]ERSON [employer] documented as of this encounter Care Teams Taxi Driver Relationship Specialty Start Date End Date Adrian Lee MD [address] [place] [phone] PCP - General FAMILY PRACTICE 04/22/18 05/08/24 Adrienne Marin MD [address] [place] [phone] PCP - General INTERNAL MEDICINE 05/09/24 Pee Lafleur MD [place] [employer] CARDIOVASCULAR DISEASE 11/02/17 05/27/19 Gladys Sanchez MD [address] [place] [address] [place] [employer] CARDIOVASCULAR DISEASE 05/28/19 Anna Landry, registered nurse midwife (Ambulatory) REGISTERED NURSE 10/29/24 11/02/24 Anna Landry, registered nurse midwife (Ambulatory) REGISTERED NURSE 11/03/24 documented as of this encounter "
[2024-11-05 16:48] LABS: Basophils Absolute Auto 0.07 K/mm3 (0.00-0.10); Basophils Percent Auto 0.5 % (0.0-1.0); Eosinophils Percent Auto 2.2 % (1.0-6.0); Hematocrit 29.6 % (37.0-46.0); Hemoglobin 9.5 g/dL (12.4-15.3); Immature Granulocyte Absolute 0.11 K/mm3 (0.00-0.00); Immature Granulocyte Percent A 0.8 % (0.0-0.0); Lymphocytes Absolute Auto 0.44 K/mm3 (1.10-4.50); Lymphocytes Percent Auto 3.3 % (18.0-42.0); Mean Corpuscular HGB Conc 32.1 g/dL (32-36); Mean Corpuscular Volume 90.2 fL (78.0-102.0); Mean Platelet Volume 11.2 fl (8.7-11.0); Monocytes Absolute Auto 0.78 K/mm3 (0.10-0.90); Monocytes Percent Auto 5.8 % (2.0-11.0); Neutrophils Absolute Auto 11.73 K/mm3 (1.70-7.20); Neutrophils Percent Auto 87.4 % (50.0-70.0); Platelet Count Result 212 K/mm3 (150-420); Red Blood Count 3.28 M/mm3 (4.70-6.10); Red Cell Distribution Width 14.3 % (11.6-14.4); White Blood Count 13.4 K/mm3 (4.8-10.8)
[2024-11-05 16:52] VITALS: BP 156/58; PULSE 65; RESP 18; TEMP 36.8; O2SAT 93
[2024-11-05 16:57] LABS: Lactic Acid Reflex 0.7 mmol/L (0.4-2.0)
[2024-11-05 16:58] LABS: Anion Gap 10 mmol/L (4-12); Blood Urea Nitrogen 30 mg/dL (9-20); Calcium 8.8 mg/dL (8.4-10.2); Carbon Dioxide 21 mmol/L (22-30); Chloride 109 mmol/L (98-107); Estimated CRCL calculation 31 ml/min; Estimated Glomerular Filt Rate 36; Glucose 114 mg/dL (65-110); Osmolality Calculated 297 mOsm/kg (285-295); Potassium 3.6 mmol/L (3.4-5.0); Sodium 140 mmol/L (137-145)
[2024-11-05 17:49] VITALS: BP 159/61; PULSE 68; RESP 20; TEMP 37; O2SAT 91
== END 2024-11-05 17:49 | disposition home or self-care (01) ==
PROVIDERS: Emergency Provider Internal Medicine Critical Care Medicine; PCP Internal Medicine
DX: J18.9 Pneumonia, unspecified organism (principal); I25.10 Atherosclerotic heart disease of native coronary artery without angina pectoris; N18.9 Chronic kidney disease, unspecified; I13.0 Hypertensive heart and chronic kidney disease with heart failure and stage 1 through stage 4 chronic kidney disease, or unspecified chronic kidney disease; I50.9 Heart failure, unspecified; E11.22 Type 2 diabetes mellitus with diabetic chronic kidney disease
CPT/HCPCS: 36415; 71045; 80048; 83605; 85025; 99283

== ENCOUNTER 2024-12-11 09:38 | Outpatient (CLI) | payer MEDICARE, SELFPAY ==
[2024-12-11 09:59] VITALS: BP 126/63; PULSE 64; RESP 16; TEMP 36.4; O2SAT 96; BMI 26.3
[2024-12-11] MEDS: IRON SUCROSE COMPLEX 300 MG in SODIUM CHLORIDE 0.9% IV 235 ML 125 MG IVPB (10:05)
== END 2024-12-11 09:39 | disposition home or self-care (01) ==
PROVIDERS: PCP Internal Medicine; Visit Provider Internal Medicine
DX: D50.9 Iron deficiency anemia, unspecified (principal)
CPT/HCPCS: 96365; 96366; J1756; J7050

== ENCOUNTER 2024-12-23 19:47 | Emergency (ER) | payer MEDICARE, SELFPAY ==
--- NOTE | ~2024-12-23 | CT_ITS ---
CT brain wo con Ordering provider: Willy Goel MD History: 74 years Male with . head injury . Comparison: None. Technique: CT of the head without contrast. Radiation reduction technique utilized. The dose-length p roduct was 681 mGy-cm. FINDINGS: BRAIN PARENCHYMA AND CSF SPACES: Mild leukoaraiosis and diffuse cortical atrophy. Mild atheromatous d isease. Encephalomalacia in the right temporal lobe anteriorly most likely post traumatic or old infa rct.. No midline shift, mass effect or hemorrhage. The brain parenchyma and CSF spaces are otherwise normal. VISUALIZED PARANASAL SINUSES: Well aerated. MASTOIDS: Well aerated. BONES: Possible left nasal bone fracture which may be acute or chronic. Otherwise, The bones appear i ntact. SOFT TISSUES: Visualized nasopharynx is normal. Superficial soft tissues are normal. IMPRESSION: No acute intracranial findings. Reviewed, dictated and finalized at location A.
--- OUTSIDE RECORDS SUMMARY | 2024-12-23 19:49 | XMS_ITS | Encounter Summary ---
Author Organization [facility] Address [id number] [place] [address] Care Team Providers Care Manufacturing Manager Name Role Phone Gladys Sanchez MD Unavailable Adrienne Marin MD Primary Care Provider [phone] Encounter Details Date Type Department Care Team (Latest Contact Info) Description 11/13/2024 Results Follow-Up [facility] [place] [address] Naima Plummer RN BASIC METABOLIC PANEL, LIPID PANEL, COMPREHENSIVE METABOLIC PANEL, Additional followed-up results: 2 Social History Tobacco Use Types Packs/Day Years Used Date Smoking Tobacco: Never Passive Smoke Exposure: Never Smokeless Tobacco: Never Comments:non-smoker Alcohol Use Standard Drinks/Week Comments No 0 (1 standard drink = 0.6 oz pur e alcohol) [facility] Utilities Answer Date Recorded In the past 12 months has [employer], gas, oil, or water [employer] threatened to shut off services in your [...] money to buy more. Never true 10/27/19 Within the past 12 months, t he [...] any time in the [facility], were you homeless or living in a [facility] (including now)? No 10/26/2024 Sex and Gender Information Value Date Recorded Sex Assigned at Male 07/08/2024 7:30 AM FRONT END WEB DEVELOPER Legal Sex Male 8:56 PM CDT Gender Identity Male 07/08/2024 7:30 AM FRONT END WEB DEVELOPER Sexual Orientation Straight 07/08/2024 7: 30 AM FRONT END WEB DEVELOPER documented as of this encounter Functional Status * Are you deaf or do you have serious difficulty hearing Answer Date of Assessment Author Status No 10/26/2024 11:48 AM CDT Jarret Masters RN Active * Are you blind or do you have serious difficulty seeing, even when wearing glasses? Answer Date of Assessment Author Status No 10/26/2024 11:48 AM LULUT Jarret Masters RN Active * Do you [...] Care Team (Late st Contact Info) Description 12/24/2024 1:30 PM CDT Appointment [facility] [place] [address] Roc Fulton MD [facility] [address] [place], [place] [address] 12/29/2024 1:30 PM CDT Appointment [facility] [address] [place] [address] Roc Fulton MD [facility] [address] [place], [place] [address] 12/31/2024 1:30 PM CDT Appointment [facility] [address] [place] [address] Roc Fulton MD [facility] [place] [address] [place] [address] 01/02/2025 1:30 PM CDT Appointment [facility] Count includes the [facility] [address] Roc Fulton MD [facility] [address] [place], [place] [address] 01/05/2025 1:30 PM CDT Appointment [facility] Count includes the [facility] [place] [address] Roc Fulton MD [facility]. [facility] [address] [place], [place] [address] 01/07/2025 1:30 PM CDT Appointment [facility] [address] [place] [address] Roc Fulton MD [facility] [address] [place] [address] 01/09/2025 1:30 PM CDT Appointment [facility] [place] [address] Roc Fulton MD [facility] [address] [place], [place] [id number] 01/12/2025 1:30 PM CDT Appointment [facility] [address] [place] [address] Roc Fulton MD [facility] [address] [place], [place] [address] 01/14/2025 1:30 PM CDT Appointment [facility] [address] [place] [address] Roc Fulton MD [facility] [address] [place], [place] [address] 01/16/2025 1:30 PM CDT Appointment [facility] [address] [address] Roc Fulton MD [facility]. [facility] [address] [place], [place] [address] 01/19/2025 1:30 PM CDT Appointment [facility] [place] [address] Roc Fulton MD [facility] [address] [place], [place] [address] 01/21/2025 1:30 PM CDT Appointment [facility] [address] [place] [address] Roc Fulton MD [facility] [address] [place], [place] [address] 01/23/2025 1:30 PM CDT Appointment [facility] [address] [place] [address] Roc Fulton MD [facility]. [facility] [address] [place], [place] [address] 01/26/2025 1:30 PM CDT Appointment [facility] [address] [place] [address] Roc Fulton MD [facility] [address] [place], [place] [address] 01/28/2025 1:30 PM CDT Appointment [facility] Count includes the [facility] [place] [address] Roc Fulton MD [facility]. [facility] [address] [place] [address] 01/30/2025 1:30 PM CDT Appointment [facility] Count includes the [facility] [place] [address] Roc Fultno MD [facility]. [facility] [address] [place], [place] [address] 02/02/2025 1:30 PM CDT Appointment [facility] Count includes the [facility] [place] [address] Roc Fulton MD [facility]. [facility] [address] [place], [place] [address] 02/03/2025 11:00 AM CDT Office Visit [facility] Mult[facility] - [facility] [address], [address] [place] [id number] Nathan Lechuga MD [address] [place] [address] 02/04/2025 1:30 PM CDT Appointment [facility] [address] [place] [address] Roc Fulton MD [facility]. [address] [address] 02/06/2025 1:30 PM CDT Appointment [facility] [address] [place] [address] Roc Fulton MD Three [address] [address] 02/09/2025 1:30 PM CDT Appointment [facility] [address] [place] [address] Roc Fulton MD Three [address] [address] 02/11/2025 1:30 PM CDT Appointment [facility] Count includes the [facility] [place] [address] Roc Fulton MD Three [address] [address] 02/13/2025 1:30 PM CDT Appointment [facility] [address] [place] [address] Roc Fulton MD Three [address] [address] 02/16/2025 1:30 PM CDT Appointment [facility] [address] [place] [address] Roc Fulton MD [facility] [address] [place], [place] [address] 02/18/2025 1:30 PM CDT Appointment [facility] [address] [place] [address] Roc Fulton MD [facility]. [facility] [address] [place], [place] [address] 02/20/2025 1:30 PM CDT Appointment [facility] [address] [place] [address] Roc Fulton MD [facility]. [facility] [address] [place], [place] [address] 02/25/2025 1:30 PM CDT Appointment [facility] [address] [place] [address] Roc Fulton MD Three [facility] [address] [place], [place] [id number] 02/27/2025 1:30 PM CDT Appointment [facility] [address] [place] [address] Roc Fulton MD [facility]. [facility] [address] [place], [place] [address] 03/02/2025 1:30 PM CDT Appointment [facility] [address] [place] [address] Roc Fulton MD [facility] [address] [place], [place] [address] 03/04/2025 1:30 PM CDT Appointment [facility] [address] [place] [address] [address] [place] [address] Roc Fulton MD [facility]. [facility] [address] [place], [place] [address] 03/06/2025 1:30 PM CDT Appointment [facility] [address] [place] [address] [address] [place] [address] Roc Fulton MD [facility] [address] [place], [place] [address] 03/09/2025 1:30 PM CDT Appointment [facility] [address] [place] [address] [place] [address] Roc Fulton MD [facility]. [place] [address] [place], [place] [address] 03/18/2025 2:30 PM CDT Office Visit Carlene Sofia-Kokomo [facility] [address] [place], [place] [address] Roc Fulton MD [facility]. [facility] [address] [place], [place] [address] 05/11/2025 2:40 PM FRONT END WEB DEVELOPER Office Visit [facility] Diabetes and Endocrinology - [address] [address] Hannah Garrison MD [address] [place] [address] documented as of this encounter Goals Goal Patient Goal Type Associated Problems Recent Progress Patient-Stated? Author Patient will return to prior living situation and remain independent in ADLs upon discharge from hospital General No Diana Todd, box printer - family caregiver with be involved in care transitions and discharge planning General No Cole, Nicole M, RN Safety Patient/family will have appropriate support at home upon discharge General Ayleen Goyal, ELECTRICITY TRADER documented as of this encounter Visit Diagnoses Not on filedocumented in this encounter Additional Health Concerns Assessment Noted Time PHQ-9 Depression Total Score: 0 11/19/19 22 3:11 PM CDT documented as of this encounter Care Teams Manufacturing Manager Relationship Specialty Start Date End Date Adrienne Marin MD [address] [place] [address] PCP - General INTERNAL MEDICINE 05/09/24 Gladys Sanchez MD [place] Carpet Mechanic CARDIOVASCULAR DISEASE 05/28/19 documented as of this encounter
--- OUTSIDE RECORDS SUMMARY | 2024-12-23 19:49 | XMS_ITS | Clinical Summary ---
Author Organization [facility] Address [facility] [place] [address] Care Team Providers Care Retail Sales Professional Name Role Phone Gladys Sanchez MD Unavailable [phone] Adrienne Marin MD Primary Care Provider [phone] Allergies Active Allergy Reactions Criticality Noted Date Comments Cephalosporins Rash Low 12/03/2015 Penicillins Rash Low 07/07/2024 Pioglitazone Swelling 03/22/2018 Medications * This document contains information received from the source organization and may not represent a complete record from that organization. sertraline 100 MG tabletIndicati ons:antidepres vish Take 1 tablet (100 mg total) by mouth daily. Indications: antidepressant Active Multiple Vitamins tabletIndicati ons:supplement Take 1 tablet by mouth daily. Indications: supplement Active WIXELA INHUB 250-50 MCG/DOSE inhalerIndicat ions:Sob Inhale 1 puff into the lungs 2 (two) times daily. Indications: Sob Active ferrous sulfate EC 325 (65 Fe) MG tabletIndicati ons:anemia Take 1 tablet by mouth daily with breakfast. Indications: anemia Active acetaminophen CR 650 MG Tab CR 8 hr tabletIndicati ons:pairn Take 2 tablets (1,300 mg total) by mouth daily. Indications: pairn Active ASPIRIN LOW DOSE 81 MG tablet Take 1 tablet (81 mg total) by mouth daily. 12/19/2 022 Active Inulin (FIBER CHOICE) 1.5 g Chew Tab Chew 1 chewable tablet by mouth 2 (two) times daily. Active Easy Comfort Lancets Misc Active alfuzosin ER (UROXATRAL) 10 MG 24 hr tablet Take 1 tablet (10 mg total) by mouth daily. Active Cetirizine HCl (ZYRTEC ALLERGY) 10 MG Cap Take 10 mg by mouth daily. Active atorvastatin (LIPITOR) 80 MG tabletIndicati ons:Dyslipidem ia Take 1 tablet (80 mg total) by mouth nightly at bedtime. 30 tablet 023 Active hydrALAZINE (APRESOLINE) 50 MG tablet Take 1 tablet (50 mg total) by mouth 3 (three) times daily. 023 Active TRUEPLUS 5-BEVEL PEN NEEDLES 31G X 5 MM [facility] [place] TWICE DAILY TO INJECT LANTUS AND VICTOZA 023 Active pantoprazole EC (PROTONIX) 40 MG tablet Take 1 tablet (40 mg total) by mouth daily for 30 days. 30 tablet 023 Active NEBULIZER/TUBI NG/MOUTHPIECE KIT, DME,Indication s:Acute on chronic diastolic congestive heart failure (CMS/HCC HHS/HCC),Coron gonzalez artery disease involving [place] coronary artery of [place] heart without angina pectoris Nebulizer machine with all tubing Dx CHF exacerbation and Pneumonia 1 kit 023 Active allopurinol (ZYLOPRIM) 100 MG tablet TAKE 1 TABLET(100 MG) BY MOUTH DAILY 90 tablet 1 024 Active gabapentin (NEURONTIN) 100 MG capsule Take 1 capsule (100 mg total) by mouth 3 (three) times daily. 90 capsule 025 Active Additional Information Patient taking differently: 300 mgOral 3 times daily, Reported on 11/07/2024 isosorbide mononitrate ER (IMDUR) 30 MG 24 hr tablet Take 1 tablet (30 mg total) by mouth daily. 30 tablet 025 Active clopidogrel (PLAVIX) 75 MG tablet Take 1 tablet (75 mg total) by mouth daily. Active carvedilol (COREG) 25 MG tablet Take 0.5 tablets (12.5 mg total) by mouth 2 (two) times daily. 30 tablet 025 Active NOVOLIN 70/30 FLEXPEN (70-30) 100 UNIT/ML injection (pen)Indicatio ns:Type 2 diabetes mellitus with stage 3b chronic kidney disease, with long-term current use of insulin ([facility]) ADMINISTER 35 UNITS UNDER THE SKIN TWICE DAILY BEFORE MEALS 30 mL 5 025 Active NIFEdipine ER (ADALAT CC) 30 MG 24 hr tablet Take 1 tablet (30 mg total) by mouth nightly at bedtime. 90 tablet 1 025 Active losartan (COZAAR) 25 MG tablet Take 1 tablet (25 mg total) by mouth daily. 90 tablet 2 025 Active torsemide (DEMADEX) 20 MG tablet Take 2 tablets (40 mg total) by mouth daily. 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 120 tablet 025 2024 Discontinued Active Problems Problem Noted Date Diagnosed Date Stage 3b chronic kidney disease 01/03/2023 Hyperuricemia w/o signs of i nflam arthrit and tophaceous dis 07/20/2022 Hypomagnesemia 03/20/2022 Benign prostatic hyperplasia without lower urinary tract symptoms 01/09/2022 Iron deficiency anemia 08/16/2021 S/P angioplasty with stent 04/26/2018 Chronic diastolic congestive heart failure ([facility]) 04/26/2018 Type 2 diabetes mellitus wit h stage 3b chronic kidney disease, with long-term current use of insulin ([facility]) 07/19/2017 Hypertension, essential Dyslipidemia CAD (coronary artery disease) Resolved Problems Problem Noted Date Diagnosed Date Resolved Date Respiratory failure ([facility]) 10/26/2024 11/07/2024 Encephalopathy 07/06/2024 11/07/2024 NSTEMI (non-ST elevated myoc ardial infarction) ([facility]) 05/13/2023 11/07/2024 NSTEMI (non-ST elevated myoc ardial infarction) ([facility]) 06/14/2022 05/07/2023 Edema, unspecified type 03/20/202210/23 Hypokalemia 01/09/2022 05/07/2023 Diabetes mellitus without co mplication ([facility]) 01/09/2022 04/01/2022 Intracranial bleed ([facility]) 10/09/2021 11/18/2021 Dizziness 10/08/2021 11/18/2021 Acute respiratory failure ([facility]) 08/18/2021 11/18/2021 Pneumonia due to COVID-19 [...] Encounters Date Type Department Care Team Description 12/19/2024 1:01 PM CDT - 12/19/2024 11:59 PM CDT Hospital Encounter [facility] [address] [place] [address] Roc Fulton MD Discharge Disposition: Home or Self Care (Routine Discharge) 12/19/2024 Telephone [facility], [address] [address] Anders Palacio NP Lab Order 12/19/2024 Travel 12/17/2024 1:04 PM CDT - 12/17/2024 11:59 PM CDT Hospital Encounter [facility] [address] [place] [address] Roc Fulton MD Discharge Disposition: Home or Self Care (Routine Discharge) 12/16/2024 2:30 PM CDT Office Visit [facility], [address] [address] Anders Palacio NP Follow Up (1 month) 12/16/2024 Travel 12/15/2024 1:04 PM CDT - 12/15/2024 11:59 PM CDT Hospital Encounter [facility] [address] [place] [address] [place] [address] Roc Fulton MD Discharge Disposition: Home or Self Care (Routine Discharge) 12/15/2024 Travel 12/12/2024 1:00 PM CDT - 12/12/2024 11:59 PM CDT Hospital Encounter [facility] [address] [place] [address] [place] [address] Roc Fulton MD Discharge Disposition: Home or Self Care (Routine Discharge) 12/12/2024 Travel 12/10/2024 12:58 PM CDT - 12/10/2024 11:59 PM CDT Hospital Encounter [facility] [address] [place] [address] [place] [address] Roc Fulton MD Discharge Disposition: Home or Self Care (Routine Discharge) 12/10/2024 Travel 12/05/2024 1:05 PM CDT - 12/05/2024 11:59 PM CDT Hospital Encounter [facility] [address] [place], [place] [address] [address] Roc Fulton MD Discharge Disposition: Home or Self Care (Routine Discharge) 12/05/2024 Travel 12/03/2024 12:59 PM CDT - 12/03/2024 11:59 PM CDT Hospital Encounter [facility] [address] [place] [address] [place] [address] Roc Fulton MD Discharge Disposition: Home or Self Care (Routine Discharge) 12/03/2024 Travel 12/01/2024 12:58 PM CDT - 12/01/2024 11:59 PM CDT Hospital Encounter [facility] [address] [place] [address] Roc Fulton MD Discharge Disposition: Home or Self Care (Routine Discharge) 12/01/2024 Travel 11/28/2024 1:14 PM CDT - 11/28/2024 11:59 PM CDT Hospital Encounter [facility] [address] [place] [address] Roc Fulton MD Discharge Disposition: Home or Self Care (Routine Discharge) 11/28/2024 Travel 11/26/2024 Scan [facility], [address] [place] [address] Scanned, Doc Pccl 11/24/2024 Orders Only [facility], [address] [place] [address] Roc Fulton MD 11/21/2024 Telephone [facility], [address] [place] [address] Roc Fulton MD Cardiac Rehab (Ok to return to cardiac rehab - [place]) 11/18/2024 2:45 PM CDT Office Visit [facility], [address] [place] [address] Anders Palacio NP Follow Up (3 week hospital follow up) 11/18/2024 Travel 11/13/2024 Results Follow-Up [facility], [address] [place] [address] Naima Plummer, RN BASIC METABOLIC PANEL, LIPID PANEL, COMPREHENSIVE METABOLIC PANEL, Additional followed-up results: 2 11/13/2024 Abstract [facility], [address] [place] [address] Joya Carolina MA 11/10/2024 Patient Outreach [facility] [address] [place] [address] Anna Landry, [place] [facility] Follow Up ([facility] 10/26/24-10/30/24) 11/07/2024 2:40 PM CDT Office Visit [facility] Diabetes and Endocrinology - [place] [address] [place] [address] Hannah Garrison MD Type 2 Diabetes 11/07/2024 Travel 11/07/2024 Telephone [facility], [facility] [address] [place] [address] Anders Palacio, FOOT PRESS OPERATOR Advise 10/31/2024 Hospital Follow-up Call [facility] [place] [address] Niesha Love LPN Follow Up Call ([facility] 10/26-10/30/24) 10/31/2024 Patient Outreach [facility], [address] [address] Anna Landry, [facility] [facility] ([facility] 10/26/24 - 10/30/24) 10/30/2024 Orders Only [facility], [address] [address] Roc Fulton MD 10/29/2024 Travel 10/29/2024 Patient Outreach [facility], [address] [address] Anna Landry, [place] [facility] Follow Up ([facility] Admission notification ) 10/28/2024 Travel 10/26/2024 12:49 AM CDT - 10/30/2024 12:31 PM CDT Hospital Encounter [facility] [place] [address] Lloyd Whitten MD Suresh, MD Jayla Alarcon Kandace C, MD McGowen, Payton K, MD Discharge Disposition: Home or Self Care (Routine Discharge) 10/24/2024 1:28 PM CDT - 10/24/2024 11:59 PM CDT Hospital Encounter [facility] [address] [place] [address] [place] [address] Adrienne Marin MD Discharge Disposition: Home or Self Care (Routine Discharge) 10/24/2024 Travel 10/22/2024 1:21 PM CDT - 10/22/2024 11:59 PM CDT Hospital Encounter [facility] [address] [place] [address] [place] [address] Adrienne Marin MD Discharge Disposition: Home or Self Care (Routine Discharge) 10/22/2024 Travel 10/20/2024 1:22 PM CDT - 10/20/2024 11:59 PM CDT Hospital Encounter [facility] [address] [place] [address] [place] [address] Adrienne Marin MD Discharge Disposition: Home or Self Care (Routine Discharge) 10/20/2024 Travel 10/17/2024 1:18 PM CDT - 10/17/2024 11:59 PM CDT Hospital Encounter [facility] [place] [address] Adrienne Marin MD Discharge Disposition: Home or Self Care (Routine Discharge) 10/17/2024 Travel 10/13/2024 1:23 PM CDT - 10/13/2024 11:59 PM CDT Hospital Encounter [facility] [place] [address] Adrienne Marin MD Discharge Disposition: Home or Self Care (Routine Discharge) 10/13/2024 Telephone [facility] [place] [id number] [facility] [address] [place] [address] Nathan Lechuga MD Medication 10/13/2024 Travel 10/13/2024 MyChart Message Enc [facility] Center [address] [place] [phone] [facility] Provider levETIRAcetam (KEPPRA) 750 MG tablet 10/10/2024 1:28 PM CDT - 10/10/2024 11:59 PM CDT Hospital Encounter [facility] [address] [facility] [place] [address] Adrienne Marin MD Discharge Disposition: Home or Self Care (Routine Discharge) 10/10/2024 Travel 10/08/2024 1:21 PM CDT - 10/08/2024 11:59 PM CDT Hospital Encounter [facility] [address] [place] [address] [address] Adrienen Marin MD Discharge Disposition: Home or Self Care (Routine Discharge) 10/08/2024 Travel 10/03/2024 1:29 PM CDT - 10/03/2024 11:59 PM CDT Hospital Encounter [facility] [address] [place] [address] [address] Adrienne Marin MD Discharge Disposition: Home or Self Care (Routine Discharge) 10/03/2024 Travel 10/01/2024 1:18 PM CDT - 10/01/2024 11:59 PM CDT Hospital Encounter [facility] [address] [place] [address] [address] Adrienne Marin MD Discharge Disposition: Home or Self Care (Routine Discharge) 10/01/2024 Travel 09/29/2024 1:19 PM CDT - 09/29/2024 11:59 PM CDT Hospital Encounter [facility] [address] [place] [address] Adrienne Marin MD Discharge Disposition: Home or Self Care (Routine Discharge) 09/29/2024 Travel 09/26/2024 1:25 PM CDT - 09/26/2024 11:59 PM CDT Hospital Encounter [facility] [place] [address] Adrienne Marin MD Discharge Disposition: Home or Self Care (Routine Discharge) 09/26/2024 Travel 09/24/2024 1:30 PM CDT - 09/24/2024 11:59 PM CDT Hospital Encounter [facility] [address] [facility] [place] [address] [place] [address] Adrienne Marin MD Discharge Disposition: Home or Self Care (Routine Discharge) 09/24/2024 Travel from Last 3 Months Immunizations Immunization [...] drink = 0.6 oz pur e alcohol) [facility] Utilities Answer Date Recorded In the past 12 months has e [employer], gas, oil, or water [employer] threatened to shut off services in your [...] place to sleep or slept in a alf (including now)? No 05/13/2023 Housing Stability Vital Sign Answer Jayden e Recorded In the last 12 months, was t here a time when you were not able to pay the mortgage or rent on time? No 10/26/2024 In the past 12 months, how m any times have you moved where you were living? 0 10/26/2024 At any time in the past 12 m [facility], were you homeless or living in a alf (including now)? No 10/26/2024 Sex and Gender Information Value Date Recorded Sex Assigned at Male 07/08/2024 7:30 AM BUILDING CARPENTER HELPER Legal Sex Male 8:56 PM CDT Gender Identity Male 07/08/2024 7:30 AM BUILDING CARPENTER HELPER Sexual Orientation Straight 07/08/2024 7: 30 AM BUILDING CARPENTER HELPER Last Filed Vital Signs Vital Sign Reading Time Taken Comments Blood Pressure 158/62 12/16/2024 2:22 PM CDT Pulse 71 12/16/2024 2:22 PM CDT Temperature 36.5 C (97.7 F) 10/30/2024 11:45 AM CDT Respiratory Rate 20 10/30/2024 11:45 AM CDT Oxygen Saturation 96% 12/16/2024 2:22 PM CDT Inhaled Oxygen Concentration - - Weight 78.5 kg (173 lb) 12/16/2024 2:22 PM CDT Height 165.1 cm (5' 5) 12/16/2024 2:22 PM CDT Body Mass Index 28.79 12/16/2024 2:22 PM CDT Plan of Treatment Upcoming Encounters Date Type Department Care Team (Late st Contact Info) Description 12/24/2024 1:30 PM CDT Appointment [facility] [address] [place] [address] Roc Fulton MD [address] [id number] 12/29/2024 1:30 PM CDT Appointment [facility] [place] [address] Roc Fulton MD [address] [address] 12/31/2024 1:30 PM CDT Appointment [facility] [place] [address] Roc Fulton MD [address] [id number] 01/02/2025 1:30 PM CDT Appointment [facility] [address] [place] [address] Roc Fulton MD [facility] [address] [place], [place] [address] 01/05/2025 1:30 PM CDT Appointment [facility] [address] [place] [address] Roc Fulton MD [facility] [address] [place], [place] [address] 01/07/2025 1:30 PM CDT Appointment [facility] [address] [place] [address] Roc Fulton MD [facility] [address] [place], [place] [address] 01/09/2025 1:30 PM CDT Appointment [facility] [place] [address] Roc Fulton MD [facility] [address] [place], [place] [address] 01/12/2025 1:30 PM CDT Appointment [facility] [place] [address] Roc Fulton MD [facility] [address] [place], [place] [address] 01/14/2025 1:30 PM CDT Appointment [facility] [address] [place] [address] [facility] MD [facility] [address] [place], [place] [address] 01/16/2025 1:30 PM CDT Appointment [facility] [address] [place] [address] Roc Fulton MD [facility] [address] [place], [place] [address] 01/19/2025 1:30 PM CDT Appointment [facility] [address] [place] [address] Roc Fulton MD [facility] [address] [place], [place] [address] 01/21/2025 1:30 PM CDT Appointment [facility] [place] [address] Roc Fulton MD [facility]. [facility] [address] [place] [place], [place] [address] 01/23/2025 1:30 PM CDT Appointment [facility] [place] [address] Roc Fulton MD [facility] [address] [place] [place], [place] [address] 01/26/2025 1:30 PM CDT Appointment [facility] [place] [address] Roc Fulton MD [facility] [address] [place] [address] 01/28/2025 1:30 PM CDT Appointment [facility] [place] [address] Roc Fulton MD [facility]. [place] [address] [place] [address] 01/30/2025 1:30 PM CDT Appointment [facility] [address] [place] [address] Roc Fulton MD [facility] [place] [address] [place] [address] 02/02/2025 1:30 PM CDT Appointment [facility] [address] [place] [address] Roc Fulton MD [facility] [address] [place] [address] 02/03/2025 11:00 AM CDT Office Visit [facility] - [facility] [address] [facility], [address] [place] [address] Nathan Lechuga MD [address] [place] [address] 02/04/2025 1:30 PM CDT Appointment [facility] [place] [address] Roc Fulton MD [facility] [address] [place] [address] 02/06/2025 1:30 PM CDT Appointment [facility] [address] [place] [address] Roc Fulton MD [facility]. [facility] [address] [place] [address] 02/09/2025 1:30 PM CDT Appointment [facility] [address] [place] [address] Roc Fulton MD [facility] [address] [place], [place] [address] 02/11/2025 1:30 PM CDT Appointment [facility] [address] [place] [address] Roc Fulton MD [facility] [address] [place] [address] 02/13/2025 1:30 PM CDT Appointment [facility] [place] [address] Roc Fulton MD [facility] [address] [place], [place] [address] 02/16/2025 1:30 PM CDT Appointment [facility] [place] [address] Roc Fulton MD [facility] [address] [place] [address] 02/18/2025 1:30 PM CDT Appointment [facility] [place] [address] Roc Fulton MD [facility] [address] [place] [address] 02/20/2025 1:30 PM CDT Appointment [facility] [place] [address] Roc Fulton MD [facility] [place] [address] [place], [place] [address] 02/25/2025 1:30 PM CDT Appointment [facility] [address] [place], [place] [address] [place], [place] [address] Roc Fulton MD [facility] [place] [address] [place], [place] [address] 02/27/2025 1:30 PM CDT Appointment [facility] [address] [place] [address] [address] [place] [address] Roc Fulton MD [facility] [address] [place], [place] [address] 03/02/2025 1:30 PM CDT Appointment [facility] [place] [address] [place] [address] Roc Fulton MD [facility] [address] [place], [place] [address] 03/04/2025 1:30 PM CDT Appointment [facility] [place] [address] Roc Fulton MD [facility] [address] [place], [place] [address] 03/06/2025 1:30 PM CDT Appointment [facility] [place] [address] [place] [address] Roc Fulton MD [facility] [place] [address] [place], [place] [address] 03/09/2025 1:30 PM CDT Appointment [facility] [address] [place] [address] Roc Fulton MD [facility]. [facility] [address] [place] [address] 03/18/2025 2:30 PM CDT Office Visit [facility], [facility] [address] [place], [place] [address] Roc Fulton MD [facility] [place] [address] [place], [place] [address] 05/11/2025 2:40 PM BUILDING CARPENTER HELPER [facility] [facility] [place] [address] [place] [address] Hannah Garrison MD [address] [place], [place] [id number] Health Maintenance Due Date Last Done Comments ASCVD Statin 1950 Diabetes: Retinopathy Eye Exam 1970 Hepatitis C 1970 DTaP, Tdap and Td Vaccines (1 - Tdap) 10/24/1971 Zoster Vaccines (1 of 2) 2002 RSV Immunization or 60+ Years (1 - Risk 60-74 years 1-dose series) 2012 Annual Medicare Wellness Visit 2017 COVID-19 Vaccine ( season) 2024 10/01/2020, 09/01/2020 PHQ-2 (Physician [place]) 06/25/2024 05/09/2024 Kidney Health Evaluation 04/25/2025 04/25/2024 Hemoglobin A1C 04/28/2025 10/26/2024, 06/25, 07/07/2024, Additional history exists Lipid Panel 11/26/2025 11/26/2024, 06/25, 04/25/2024, Additional history exists Colorectal Cancer Screening Colonoscopy [...] discharge from hospital General No Diana Todd, nursery helper - family caregiver with be involved in care transitions and discharge planning General No Nicole Cole RN Safety Patient/family will have appropriate support at home upon discharge General No Ayleen Garcia, QUALITY ANALYST Procedures Procedure Name Priority Date/Time Associated Diagnosis Comments COMPREHENSIVE METABOLIC PANEL Routine 11/26/2024 LIPID PANEL Routine 11/26/2024 BASIC METABOLIC PANEL Routine 11/05/2024 IRON Routine 11/03/2024 FERRITIN Routine 11/03/2024 CBC, MANUAL DIFF Routine 11/03/2024 THYROXINE, FREE (FT4) Routine 11/03/2024 THYROID STIM HORMONE TSH Routine 11/03/2024 BNP Routine 11/03/2024 POCT GLUCOSE - DOCKED DEVICE Routine 10/30/2024 11:38 AM CDT COMPREHENSIVE METABOLIC PANEL Routine 10/30/2024 4:55 AM CDT CBC W/DIFF AUTOMATED Routine 10/30/2024 4:55 AM CDT POCT GLUCOSE - DOCKED DEVICE Routine 10/30/2024 4:29 AM CDT CLOSTRIDIUM DIFFICILE Routine 10/29/2024 9:37 PM CDT POCT GLUCOSE - DOCKED DEVICE Routine 10/29/2024 8:24 PM CDT POCT GLUCOSE - DOCKED DEVICE Routine 10/29/2024 4:47 PM CDT POCT GLUCOSE - DOCKED DEVICE Routine 10/29/2024 10:07 AM CDT PRO-BRAIN NATRIURETIC PEPTIDE Routine 10/29/2024 5:10 AM CDT COMPREHENSIVE METABOLIC PANEL Routine 10/29/2024 5:10 AM CDT CBC W/DIFF AUTOMATED Routine 10/29/2024 5:10 AM CDT POCT GLUCOSE - DOCKED DEVICE Routine 10/28/2024 7:44 PM CDT POCT GLUCOSE - DOCKED DEVICE Routine 10/28/2024 4:36 PM CDT POCT GLUCOSE - DOCKED DEVICE Routine 10/28/2024 11:34 AM CDT [...] 10/29/19 3:20 AM CDT POCT GLUCOSE - DOCKED DEVICE Routine 10/28/2024 2:38 AM CDT POCT GLUCOSE - DOCKED DEVICE Routine 10/27/2024 9:02 PM CDT HEPARIN, ANTI XA, UFH TIMED 10/27/2024 8:50 PM CDT TROPONIN, QUANT TIMED 10/27/2024 2:23 PM CDT HEPARIN, ANTI XA, UFH TIMED 10/27/2024 2:23 PM CDT POCT GLUCOSE - DOCKED DEVICE Routine 10/27/2024 1:22 PM CDT HEPARIN, ANTI XA, UFH TIMED 10/27/2024 8:37 AM CDT POCT GLUCOSE - DOCKED DEVICE Routine 10/27/2024 8:32 AM CDT TROPONIN, QUANT Routine 10/27/2024 4:24 AM CDT VANCOMYCIN Routine 10/27/2024 4:24 AM CDT MAGNESIUM Routine 10/27/2024 4:24 AM CDT CBC W/DIFF AUTOMATED Routine 10/27/2024 4:24 AM CDT COMPREHENSIVE METABOLIC PANEL Routine 10/27/2024 4:24 AM CDT POCT GLUCOSE - DOCKED DEVICE Routine 10/27/2024 2:52 AM CDT HEPARIN, ANTI XA, UFH TIMED 10/27/2024 2:38 AM CDT POCT GLUCOSE - DOCKED DEVICE Routine 10/26/2024 8:21 PM CDT HEPARIN, ANTI XA, UFH STAT 10/26/2024 7:36 PM CDT USE ECHO 2D FU LTD W CON Today 10/26/2024 5:00 PM CDT POCT GLUCOSE - DOCKED DEVICE Routine 10/26/2024 3:03 PM CDT TROPONIN, QUANT Routine 10/26/2024 10:45 AM CDT HEPARIN, ANTI XA, UFH TIMED 10/26/2024 9:55 AM CDT POCT GLUCOSE - DOCKED DEVICE Routine 10/26/2024 8:33 AM CDT POCT GLUCOSE - DOCKED DEVICE Routine 10/26/2024 5:17 AM CDT CULTURE, BACTERIA, BLOOD Routine 10/26/2024 3:50 AM CDT HEPARIN, ANTI XA, UFH TIMED 10/26/2024 3:50 AM CDT PROTHROMBIN TIME, VENOUS STAT 10/26/2024 3:50 AM CDT PARTIAL THROMBOPLASTIN TIME,PTT STAT 10/26/2024 3:50 AM CDT HEMOGLOBIN, GLYCOSYLATED Routine 10/26/2024 3:50 AM CDT HC MYCOPLASMA AB-90 Routine 10/26/2024 3 :50 AM CDT HC INFECT AGENT DETECT OPTICAL Routine 10/26/2024 3:49 AM CDT LEGIONELLA AG URINE Routine 10/26/2024 3 :49 AM CDT CULTURE, BACTERIA, BLOOD Routine 10/26/2024 3:[address] CHEST+ABD+PEL WO CON WICHO 10/27/19 25 3:03 AM CDT POCT GLUCOSE - DOCKED DEVICE Routine 10/26/2024 2:02 AM CDT MAGNESIUM Routine 10/26/2024 2:02 AM CDT VANCOMYCIN TIMED 10/26/2024 2:02 AM CDT PROCALCITONIN (PCT) Routine 10/26/2024 2 :02 AM CDT LACTIC ACID Routine 10/26/2024 2:02 AM CDT TROPONIN, QUANT STAT 10/26/2024 2:02 AM CDT CBC W/DIFF AUTOMATED Routine 10/26/2024 2:02 AM CDT COMPREHENSIVE METABOLIC PANEL Routine 10/26/2024 2:02 AM CDT ECG 12-LEAD Routine 10/26/2024 1:46 AM CDT MRSA SCREENING Routine 10/26/2024 1:15 AM CDT COLONOSCOPY GENERIC (SCAN ORDER) Routine 05/31/2018 from Last 3 Months or Most Recently Relevant to Health Maintenance Results * (ABNORMAL) COMPREHENSIVE METABOLIC PANEL (11/26/2024) Only the most recent of6 resultswithin the time period is included. SODIUM S/P/B 142 GLUCOSE 178 mg/dL BUN 34 CREATININE S/P/B 1.68(A) 0.7 - 1.3 CALCIUM S/P/B 8.7 POTASSIUM S/P/B 3.5 CHLORIDE S/P/B 105 GFR ESTIMATE 43 us Default History Genericprovider LABORATORY Edited Result - Final * LIPID PANEL (11/26/2024) CHOLESTEROL 129 TRIGLYCERIDES 75 HDL 48 LDL (CALCULATED) 65 NON HDL CHOLESTEROL 81 Default History Genericprovider LABORATORY Edited Result - Final * (ABNORMAL) BASIC METABOLIC PANEL (11/05/2024) Pathologist [facility] SODIUM S/P/B 140 POTASSIUM S/P/B 3.6 CO2 21 CHLORIDE S/P/B 109 GLUCOSE 114 mg/dL CALCIUM S/P/B 8.8 BUN 30 CREATININE S/P/B 1.84(A) 0.7 - 1.3 GFR ESTIMATE 36 11/05/2024 Default History Genericprovider LABORATORY Final Result * BNP (11/03/2024) Pathologist [facility] B TYPE NATRIURETIC PEPTIDE 383 Default History Genericprovider LABORATORY Final Result * CBC, MANUAL DIFF (11/03/2024) Pathologist [facility] WBC 9.8 HGB 9.7 HCT 31.6 PLT 162 Default History Genericprovider LABORATORY Final Result * THYROXINE, FREE (FT4) (11/03/2024) Pathologist [facility] FREE T4 1.0 Result [facility] Default History Genericprovider LABORATORY Final Result * THYROID STIM HORMONE TSH (11/03/2024) Pathologist [facility] TSH 6.76 Result [facility] Default History Genericprovider LABORATORY Final Result * IRON (11/03/2024) Pathologist [facility] IRON 23 50 - 180 11/03/2024 Default History Genericprovider LABORATORY Final Result * FERRITIN (11/03/2024) Pathologist [facility] FERRITIN 184 24 - 380 11/03/2024 Default History Genericprovider LABORATORY Final Result * (ABNORMAL) POCT glucose (10/30/2024 11:38 AM CDT) Only the most recent of18 resultswithin the time period is included. [facility] GLUCOSE POC 197(H) 70 - 99 mg/dL 10/30/2024 11:47 AM CDT [facility] 10/30/2024 11:3 8 AM CDT us Kendal Harvey MD POCT ORDERABLES - DEVICE Fin al Result [facility] [address] [place] [address], [place] [phone] * (ABNORMAL) CBC W/DIFF AUTOMATED (10/30/2024 4:55 AM CDT) Only the most recent of5 resultswithin the time period is included. [facility] WBC 7.82 4.5 - 11.0 x10'3/uL 10/30/2024 5:43 AM CDT [facility] RBC 3.23(L) 4.70 - 6.10 x10'6/uL 10/30/2024 5:43 AM CDT [facility] HGB 9.5(L) 14.0 - 18.0 G/DL 10/30/2024 5:43 AM CDT [facility] HCT 28.7(L) 43.0 - 54.0 % 10/30/2024 5:43 AM CDT [facility] MCV 88.9 80.0 - 94.0 FL 10/30/2024 5:43 AM CDT [facility] MCH 29.4 27.0 - 31.0 PG 10/30/2024 5:43 AM CDT [facility] MCHC 33.1 32.0 - 36.0 G/DL 10/30/2024 5:43 AM CDT [facility] RDW 14.7(H) 11.5 - 14.5 % 10/30/2024 5:43 AM CDT [facility] PLT 161 130 - 400 x10'3/uL 10/30/2024 5:43 AM CDT [facility] MPV 12.8(H) 9.3 - 12.2 FL 10/30/2024 5:43 AM CDT [facility] DIFFERENTIAL TYPE AUTOMATED DIFFERENTIAL 10/30/2024 5:43 AM CDT [facility] NEUTROPHILS % 71.2 % 10/30/2024 5:43 AM CDT [facility] LYMPHOCYTES % 8.4 % 10/30/2024 5:43 AM CDT [facility] MONOCYTES % 10.9 % 10/30/2024 5:43 AM CDT [facility] EOSINOPHILS 7.2 % 10/30/2024 5:43 AM CDT [facility] BASOPHILS 0.8 % 10/30/2024 5:43 AM CDT [facility] IMMATURE GRANS % 1.5 % 10/31/19 5:43 AM CDT [facility] ABS. NEUTROPHILS 5.57 1.80 - 7.70 x10'3/uL 10/30/2024 5:43 AM CDT [facility] ABS. LYMPHOCYTES 0.66(L) 1.00 - 4.80 x10'3/uL 10/30/2024 5:43 AM CDT [facility] ABS. MONOCYTES 0.85(H) 0.30 - 0.82 x10'3/uL 10/30/2024 5:43 AM CDT [facility] ABS. EOSINOPHILS 0.56(H) 0.04 - 0.54 x10'3/uL 10/30/2024 5:43 AM CDT [facility] ABS. BASOPHILS 0.06 0.01 - 0.08 x10'3/uL 10/30/2024 5:43 AM CDT [facility] ABS. IMMATURE GRANULOCYTES 0.12 0.00 - 0.49 x10'3/uL 10/30/2024 5:43 AM CDT [facility] 10/30/2024 4:55 AM CDT Shana TAN LABORATORY Final Result [facility] [address] [place] [phone], * CLOSTRIDIUM DIFFICILE (10/29/2024 9:37 PM CDT) Pathologist [facility] GD ANTIGEN NEGATIVE NEGATIVE 10/30/2024 7:49 AM CDT [facility] C DIFFICILE TOXIN A&B (STOOL) NEGATIVE NEGATIVE 10/30/2024 7:49 AM CDT [facility] COMMENT GDH NEGATIVE/TOXI N A & B NEGATIVE: NEGATIVE FOR TOXIGENIC C. DIFFICILE. 10/30/2024 7:49 AM CDT [facility] STOOL SPECIMEN / Unknown 10/29/2024 9:37 PM CDT Kendal Harvey MD BODY FLUIDS AND STOOLS ORDER PRECIOUS Final Result [facility] [address] [place] [id number], [place] [phone] * (ABNORMAL) PRO-BRAIN NATRIURETIC PEPTIDE (10/29/2024 5:10 AM CDT) Pathologist [facility] PRO-B TYPE NATRIURETIC PEPTIDE 6,744(H) <125 PG/ML 10/29/2024 3:59 PM CDT [facility] Comment: CUT POINTS ESTABLISHED BY [...] OF 89% AND 72% FOR ACUTE CHF. 10/29/2024 5:10 AM CDT Martina CHING LABORATORY Final Result Performing Organization Address [facility] Co de Phone Number [facility] [address] [place] [phone], * HEPARIN, ANTI XA, UFH (10/28/2024 10:30 AM CDT) Only the most recent of9 resultswithin the time period is included. HEPARIN ANTI XA UFH 0.41 0.30 - 0.70 IU/ML 10/28/2024 11:11 AM CDT [facility] Comment: UFH Therapeutic Anti Xa Ranges: Medical Therapeutic Range: 0.30 - 0.70 IU/mL Cardiac Therapeutic Range: 0.30 - 0.50 IU/mL Neuro Therapeutic Range: 0.20 - 0.40 IU/mL 10/28/2024 10:3 0 AM CDT Rose Dickerson MD LABORATORY Final Resu lt Performing Organization Address City/[facility]/ZIP Co de Phone Number [facility] [address] [place] [phone], * XR CHEST PORTABLE (10/28/2024 3:53 AM CDT) Anatomical Region Laterality Modality Chest Radiographic Rozina ging 10/28/2024 3:54 AM CDT Impressions 10/28/2024 3:56 AM CDT IMPRESSION: 1. Cardiomegaly and vascular congestion. 2. Hazy bilateral lung opacities, right greater than left. Findings raise concern for pulmonary edema with superimposed infection not excluded. Referred By: LORENE BRYANT Interpreted By: Franklin Tipton MD, 10/28/2024 3:54 AM Narrative 10/28/2024 3:56 AM CDT [place] [address] Examination: XR CHEST PORTABLE Exam time: 10/28/2024 3:38 AM Clinical history: Shortness of breath. Comparison: Radiograph July 29, 2024. Technique: AP image of the chest. Findings: The heart is mildly enlarged. Calcifications of the thoracic aorta noted. There is vascular congestion. Hazy bilateral lung opacities are noted, right greater than left. Findings raise concern for pulmonary edema with superimposed infection not excluded. Probable small pleural effusions bilaterally. No pneumothorax. Procedure Note Franklin Tipton MD - 10/28/2024 [place] [address] Examination: XR CHEST PORTABLE Exam time: 10/28/2024 3:38 AM Clinical history: Shortness of breath. Comparison: Radiograph July 29, 2024. Technique: AP image of the chest. Findings: The heart is mildly enlarged. Calcifications of the thoracic aorta noted.There is vascular congestion. Hazy bilateral lung opacities are noted,right greater than left. Findings raise concern for pulmonary edema withsuperimposed infection not excluded. Probable small pleural effusionsbilaterally. No pneumothorax. IMPRESSION: 1. Cardiomegaly and vascular congestion. 2. Hazy bilateral lung opacities, right greater than left. Findings raiseconcern for pulmonary edema with superimposed infection not excluded. Referred By: LORENE BRYANT Interpreted By: Franklin Tipton MD, 10/28/2024 3:54 AM Lloyd Whitten MD GENERAL IMAGING Final Re sult * (ABNORMAL) TROPONIN, QUANT (10/28/2024 3:22 AM CDT) Only the most recent of5 resultswithin the time period is included. TROPONIN I HIGH SENSITIVITY 1,073(HH) <79 ng/L 10/28/2024 4:01 AM CDT [facility] Comment: NOT CALLED PER CRITICAL VALUE POLICY HIGH DOSES OF BIOTIN, TROPONIN-SPECIFIC AUTOANTIBODIES, AND ANTIBODY THERAPY CONTAINING HAMA MAY INTERFERE WITH THIS TEST RESULT. CORRELATION TO CLINICAL HISTORY AND PRESENTATION RECOMMENDED. 10/28/2024 3:22 AM CDT Lloyd Whitten MD LABORATORY Final Re sult [facility] [address] [place] [address], [place] [phone] * MAGNESIUM (10/28/2024 3:22 AM CDT) Only the most recent of3 resultswithin the time period is included. Pathologist [facility] MAGNESIUM 2.1 1.8 - 2.4 MG/DL 10/28/2024 4:04 AM CDT [facility] 10/28/2024 3:22 AM CDT Mervin Price DO LABORATORY Final Result [facility] [address] [place] [address], [place] [phone] * (ABNORMAL) ARTERIAL BLOOD GAS (10/28/2024 3:20 AM CDT) PH ARTERIAL 7.49(H) 7.35 - 7.45 10/28/2024 3:31 AM CDT [facility] PCO2 37.0 35.0 - 45.0 MMHG 10/28/2024 3:31 AM CDT [facility] PO2 64.0(L) 83.0 - 108.0 MMHG 10/28/2024 3:31 AM CDT [facility] TOTAL CO2 ARTERIAL 29.3(H) 19.0 - 24.0 MMOL/L 10/28/2024 3:31 AM CDT [facility] BASE EXCESS 4.7(H) 0.0 - 3.0 MMOL/L 10/28/2024 3:31 AM CDT [facility] O2 SATURATION 94 94.0 - 98.0 % 10/28/2024 3:31 AM CDT [facility] BICARB ARTERIAL 28.2(H) 21.0 - 28.0 MMOL/L 10/28/2024 3:31 AM CDT [facility] TRACY TEST TRACY TEST PERFORMED 10/28/2024 3:28 AM CDT [facility] O2 ADMIN ARTERIAL 40 10/28/2024 3:28 AM T [facility] DRAW SITE ARTERIAL RT RADIAL 10/28/2024 3:28 AM T [facility] 10/28/2024 3:20 AM CDT us Lloyd Whitten MD LABORATORY Final Re sult [facility] [address] [place] [address], [place] [phone] * Vancomycin Random Level (10/27/2024 4:24 AM CDT) Only the most recent of2 resultswithin the time period is included. VANCOMYCIN RANDOM 27.7 MCG/ML 10/27/2024 5:09 AM CDT [facility] Comment:NO THERAPEUTIC RANGE AVAILABLE LAST DOSE UNKNOWN LAST DOSE 10/27/2024 4:37 AM CDT [facility] 10/27/2024 4:24 AM CDT Mervin Price DO LABORATORY Final Result [facility] [address] [place] [address], [place] [phone] * USE ECHO 2D FU LTD W CON (10/26/2024 5:00 PM CDT) Anatomical Region Laterality Modality NA Echocardiogram 10/26/2024 4:23 PM CDT Narrative 10/27/2024 7:53 AM CDT Echocardiography Report Pat.Name: CAMILLE KEYANATARYN Glass.ID: [id number] .Date: 10/26/2024 Refer.MD: [id number] MANNY Bailey EWDPROV EWDPROV Exam Time: 4:23:00 PM Study Type:ECHO WITH CARDIAC DOPPLER COMP Height: 65 in Weight: 175 lb BSA: 1.87 m2 Age: 5 1950,74Y Sex: M BP: 170/82 HR: 74 bpm Sonogrphr: CLARK HOGAN Pat. Stat.:Inpatient Room: 209 Reason for Study:NSTEMI, Assess wall motion/EF Procedures: 2D, Definity was used to enhance endocardial definition. Portable, The study quality is technically difficult. Limited ++++++++++++++++++++++++++++++++++++ SUMMARY: ++++++++++++++++++++++++++++++++++++ The left ventricular size is normal. Estimated left ventricular ejection fraction is 50-55%. There is no left ventricular hypertrophy. There was severe hypokinesis, nearly aneurysmal, of the apical urbina. No LV thrombus ++++++++++++++++++++++++++++++++++++ FINDINGS: ++++++++++++++++++++++++++++++++++++ LV: The left ventricular size is normal. Estimated left ventricular ejection fraction is 50-55%. There is no left ventricular hypertrophy. WM: There was severe hypokinesis, nearly aneurysmal, of the apical urbina. No LV thrombus ++++++++++++++++++++++++++++++++++++ MEASUREMENTS: ++++++++++++++++++++++++++++++++++++ 2D Left Ventricle LVIDd 5.1 cm (3.6-5.2) LV ESV 56.3 ml LVIDs 3.2 cm (2.3-3.9) LV ESV 41.8 ml LngAxd 8.65 cm LVESV BP 48.8 ml LngAxd 9.03 cm LV EF 50.6 % LV EDV 114 ml LV EF 56.6 % LV EDV 96.4 ml LV EF BP 54.4 % LVEDV BP 107 ml LV SV 57.7 ml LngAxs 8.32 cm LV SV 54.5 ml LngAxs 8.12 cm LV SV BP 58.2 ml LVPW LVPWd 1 cm Ventricular Septum IVSd 1 cm Ratios IVS <Electronic Signature> 10/27/2024 07:53 AM Clark Hogan M.D. Procedure Note Clark Hogan MD - 10/27/2024 Echocardiography Report Pat.Name: KEYANA POOL Pat.ID: [id number] St.Date: 10/26/2024 Refer: [id number] MANNY Bailey EWDPROV EWDPROV Exam Time: 4:23:00 PM Study Type:ECHO WITH CARDIAC DOPPLER COMP Height: 65 in Weight: 175 lb BSA: 1.87 m2 Age: 5 1950,74Y Sex: M BP: 170/82 HR: 74 bpm Sonogrphr: CLARK HOGAN Stat.:Inpatient Room: [facility] Reason for Study:NSTEMI, Assess wall motion/EF Procedures: 2D, Definity was used to enhance endocardial definition. Portable, The study quality is technically difficult. Limited ++++++++++++++++++++++++++++++++++++ SUMMARY: ++++++++++++++++++++++++++++++++++++ The left ventricular size is normal. Estimated left ventricular ejection fraction is 50-55%. There is no left ventricular hypertrophy. There was severe hypokinesis, nearly aneurysmal, of the apical urbina. No LV thrombus ++++++++++++++++++++++++++++++++++++ FINDINGS: ++++++++++++++++++++++++++++++++++++ LV: The left ventricular size is normal. Estimated left ventricular ejection fraction is 50-55%. There is no left ventricular hypertrophy. WM: There was severe hypokinesis, nearly aneurysmal, of the apical urbina. No LV thrombus ++++++++++++++++++++++++++++++++++++ MEASUREMENTS: ++++++++++++++++++++++++++++++++++++ 2D Left Ventricle LVIDd 5.1 cm (3.6-5.2) LV ESV 56.3 ml LVIDs 3.2 cm (2.3-3.9) LV ESV 41.8 ml LngAxd 8.65 cm LVESV BP 48.8 ml LngAxd 9.03 cm LV EF 50.6 % LV EDV 114 ml LV EF 56.6 % LV EDV 96.4 ml LV EF BP 54.4 % LVEDV BP 107 ml LV SV 57.7 ml LngAxs 8.32 cm LV SV 54.5 ml LngAxs 8.12 cm LV SV BP 58.2 ml LVPW LVPWd 1 cm Ventricular Septum IVSd 1 cm Ratios IVS <Electronic Signature> 10/27/2024 07:53 AM Clark Hogan M.D. us Clark Hogan MD ECHO Final Resul t * (ABNORMAL) MYCOPLASMA PNEUMONIAE AB (10/26/2024 3:50 AM CDT) M. PNEUMONIAE AB IGG 1.00(H) <=0.90 10/29/2024 8:11 PM CDT [employer] [facility] Comment: Reference Range: <=0.90 Negative 0.91-1.09 Equivocal >=1.10 Positive A positive IgG result 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 It does not differentiate between an active or past infection. The clinical diagnosis must be interpreted in conjunction with the clinical signs and symptoms of the patient. M. PNEUMONIAE AB IGM 139 <770 U/mL 10/29/2024 8:11 PM CDT [employer] [facility] Comment: Reference Range: <770 U/ml Negative 770-950 U/mL Low positive >950 U/mL Positive A positive IgM antibody result is consistent with recent infection. However, a negative result does not necessarily rule out recent infection as some individuals may not mount another IgM response, if previously infected. A positive IgM antibody result with or without a positive IgG antibody result, is consistent with recent infection. However, a negative result does not necessarily rule out recent infection as some individuals may not mount another IgM response, if previously infected. A positive IgG antibody result in the absence of a positive IgM antibody result, 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 It does not differentiate between an active or past infection. The clinical diagnosis must be interpreted in conjunction with the clinical signs and symptoms of the patient. Test Performed by Mani Reynoso, [employer] [place], [address] [place], [place] Zaki Beard M.D., Ph.D., Director of Laboratories , [facility] [id number] 10/26/2024 3:50 AM CDT Lloyd Whitten MD LABORATORY Final Re sult [employer] [place] [id number] [place] [address], [place] [phone] * (ABNORMAL) HEMOGLOBIN, GLYCOSYLATED (10/26/2024 3:50 AM CDT) HGB A1C 8.3(H) <5.7 % 10/26/2024 11:19 AM CDT [facility] Comment: ADA GUIDELINES 2010 5.7 TO 6.4% INCREASED RISK OF DIABETES > OR = 6.5% CONSISTENT WITH DIABETES ESTIMATED AVG GLUCOSE 192 mg/dL 10/26/2024 11:19 AM CDT [facility] 10/26/2024 3:50 AM CDT Lloyd Whitten MD LABORATORY Final Re sult Performing Organization Address City/[facility]/ZIP Co de Phone Number [facility] [address] [place] [address], [place] [phone] * (ABNORMAL) PARTIAL THROMBOPLASTIN TIME,PTT (10/26/2024 3:50 AM CDT) PTT 69.6(H) 25.1 - 36.5 SEC 10/26/2024 4:32 AM CDT [facility] 10/26/2024 3:50 AM CDT Mervin Price LABORATORY Final Result Performing Organization Address [facility] Co de Phone Number [facility] [address] [place] [address], * (ABNORMAL) PROTIME/INR, VENOUS (10/26/2024 3:50 AM CDT) PROTIME 14.0(H) 10.2 - 12.9 SEC 10/26/2024 4:32 AM CDT [facility] INR 1.2 10/26/2024 4:32 AM CDT [facility] Comment: Recommended INR Therapeutic Goals: 2.0-3.0 Routine Therapy 2.5-3.5 Mechanical Prosthetic Valves (High Risk) 10/26/2024 3:50 AM CDT Mervin Price LABORATORY Final Result Performing Organization Address [facility] Co de Phone Number [facility] [address] [place] [phone], * CULTURE, BACTERIA, BLOOD (10/26/2024 3:50 AM CDT) Only the most recent of2 resultswithin the time period is included. SPEC DESCRIPTION BLOOD 10/26/2024 2:36 AM CDT [facility] SPECIAL REQUESTS NO SPECIAL REQUEST 10/26/2024 2:36 AM CDT [facility] CULTURE RESULT NO GROWTH 5 DAYS 10/31/2024 4:12 AM CDT [facility] BLOOD SPECIMEN OBTAINED FOR BLOOD CULTURE / Unknown 10/26/2024 3:50 AM CDT 10/26/2024 4:01 AM CDT Lloyd Whitten MD MICROBIOLOGY - GENERAL O RDERABLES Final Result Performing Organization Address [facility] Co de Phone Number [facility] [address] [place] [address], [place] [phone] * STREP PNEUMO AG URINE (10/26/2024 3:49 AM CDT) S. PNEUMONIAE URINARY AG NEGATIVE NEGATIVE 10/26/2024 5:51 PM CDT [facility] URINE SPECIMEN OBTAINED VIA [facility] URINARY CATHETER / Unknown 10/26/2024 3:49 AM CDT Lloyd Whitten MD MICROBIOLOGY - GENERAL O RDERABLES Final Result Performing Organization Address [facility] Co de Phone Number [facility] [address] [place] [address], [place] [phone] * LEGIONELLA AG URINE (10/26/2024 3:49 AM CDT) LEGIONELLA ANTIGEN (URINE) NEGATIVE NEGATIVE 10/26/2024 5:51 PM CDT [facility] URINE SPECIMEN / Unknown 10/26/2024 3:49 AM CDT Lloyd Whitten MD MICROBIOLOGY - GENERAL O RDERABLES Final Result Performing Organization Address [facility] Co de Phone Number [facility] [address] [place] [address], [place] [phone] * CT CHEST+ABD+PEL WO CON (10/26/2024 3:03 AM CDT) Anatomical Region Laterality Modality Chest, Abdomen, Pelvis Computed Tomography 10/26/2024 3:27 AM CDT Impressions 10/26/2024 3:44 AM CDT IMPRESSION: 1. A 2 x 1.4 x 1.4 cm hypodense lesion in the pancreatic body concerning for primary neoplasm of the pancreas. Recommend MRI pancreatic mass protocol exam with and without contrast for further assessment. 2. Interval development of moderate bilateral pleural effusions, right larger than left. 3. Interval development of partial consolidative airspace opacities in bilateral lungs as noted above, right much greater than left, likely atypical pneumonia, but recommend follow to resolution to exclude underlying malignancy or other etiology. 4. Heavy coronary artery calcifications in all 3 coronary arteries, with greatest burden in the left anterior descending coronary artery. 5. Bladder is decompressed by Blair catheter, limiting evaluation. 6. Small fat-containing right inguinal hernia and tiny fat-containing ventral periumbilical hernia. 7. Heavy stool burden in the rectosigmoid colon and descending colon suggesting constipation. 8. Chronic degenerative changes throughout the lumbar spine with multilevel canal and foraminal narrowing as noted above, greatest at L4-5 with central canal and left subarticular recess and mild bilateral foraminal narrowing at L4-5. There is also moderate to severe bilateral L5-S1 foraminal stenosis and mild central canal and bilateral foraminal narrowing at L3-4. This CT exam was performed using one or more of the following dose reduction techniques: automated exposure control, adjustment of the mA and/or kV according to patient size, the use of iterative reconstruction technique, use of ALARA (As Low As Reasonably Achievable) and/or use of Image Gently techniques. Referred By: LORENE BRYANT Interpreted By: Megan Lynn MD, 10/26/2024 3:27 AM Narrative 10/26/2024 3:44 AM CDT [facility] [address] [place], [place] [address] EXAMINATION: CT Chest, Abdomen, and Pelvis without Intravenous Contrast, Axial Imaging with 2-D coronal and sagittal reconstructions. INDICATION: Abdominal pain and sepsis. COMPARISON: Portable AP chest x-ray 07/29/[address] chest without contrast 07/20/2024. CT CHEST FINDINGS: There is an interval development of moderate bilateral pleural effusions, right larger than left and development of partial consolidative airspace opacities in the right upper and middle lobes as well as in the anterior superior aspect of the right lower lobe, and partially consolidative airspace opacities predominantly centrally located in the left perihilar and infrahilar regions of the left lung but with minimal extension laterally into the left mid chest. Findings are likely on the basis of atypical pneumonia, right worse than left, but recommend follow to resolution to exclude underlying malignancy or other etiology. There are calcified granulomas in the left hilum and left upper lobe. No pathologic adenopathy is seen in the chest. Heart size is normal with no significant pericardial effusion. There are heavy coronary artery calcifications in all 3 coronary arteries, with greatest burden in the left anterior descending coronary artery. Aorta is age-appropriate without aneurysm with mild calcifications in the aortic arch and descending aorta. Thyroid gland appears unremarkable. No acute osseous abnormality. CT ABDOMEN AND PELVIS FINDINGS: There is a subtle suspicious 2 x 1.4 x 1.4 cm hypodense lesion in the pancreatic body on axial series 2 images 98-103 concerning for primary neoplasm of the pancreas. Remainder of the pancreas Liver, spleen, gallbladder, and bilateral adrenal glands are unremarkable. No pancreatic duct dilatation is seen. Bilateral kidneys are unremarkable. Bladder is decompressed by Blair catheter, limiting evaluation, with iatrogenic foci of gas in the bladder from the Blair catheter. Prostate is not well seen suggesting prior TURP procedure or prior prostatectomy. There is a small fat-containing right inguinal hernia. There is a tiny miniscule fat-containing ventral periumbilical hernia. Heavy stool burden in the rectosigmoid colon and descending colon. No ascites or adenopathy. Atherosclerotic calcifications in the abdominal aorta and its distal branches without aneurysm. Chronic degenerative changes throughout the lumbar spine with mild degenerative retrolisthesis of L2 on L3 with degenerative loss of disc height and endplate arthrosis at all lumbar levels with multilevel canal and foraminal narrowing, or central canal stenosis greatest at L4-5 with associated left lateral recess and left greater than right foraminal narrowing at L4-5. There is bilateral foraminal stenosis at L5-S1 and at least mild central canal and mild bilateral foraminal narrowing at L3-4. No acute osseous abnormality. Procedure Note Megan Lynn MD - 10/26/2024 [facility] [address] [place], [place] [address] EXAMINATION: CT Chest, Abdomen, and Pelvis without Intravenous Contrast,Axial Imaging with 2-D coronal and sagittal reconstructions. INDICATION: Abdominal pain and sepsis. COMPARISON: Portable AP chest x-ray 07/29/[address] chest without contrast07/20/2024. CT CHEST FINDINGS: There is an interval development of moderate bilateral pleural effusions,right larger than left and development of partial consolidative airspaceopacities in the right upper and middle lobes as well as in the anteriorsuperior aspect of the right lower lobe, and partially consolidativeairspace opacities predominantly centrally located in the left perihilarand infrahilar regions of the left lung but with minimal extensionlaterally into the left mid chest. Findings are likely on the basis ofatypical pneumonia, right worse than left, but recommend follow toresolution to exclude underlying malignancy or other etiology. There arecalcified granulomas in the left hilum and left upper lobe. No pathologicadenopathy is seen in the chest. Heart size is normal with no significantpericardial effusion. There are heavy coronary artery calcifications inall 3 coronary arteries, with greatest burden in the left anteriordescending coronary artery. Aorta is age-appropriate without aneurysmwith mild calcifications in the aortic arch and descending aorta. Thyroidgland appears unremarkable. No acute osseous abnormality. CT ABDOMEN AND PELVIS FINDINGS: There is a subtle suspicious 2 x 1.4 x 1.4 cm hypodense lesion in thepancreatic body on axial series 2 images 98-103 concerning for primaryneoplasm of the pancreas. Remainder of the pancreas Liver, spleen,gallbladder, and bilateral adrenal glands are unremarkable. No pancreaticduct dilatation is seen. Bilateral kidneys are unremarkable. Bladder isdecompressed by Blair catheter, limiting evaluation, with iatrogenic fociof gas in the bladder from the Blair catheter. Prostate is not well seensuggesting prior TURP procedure or prior prostatectomy. There is a smallfat-containing right inguinal hernia. There is a tiny minisculefat- containing ventral periumbilical hernia. Heavy stool burden in therectosigmoid colon and descending colon. No ascites or adenopathy.Atherosclerotic calcifications in the abdominal aorta and its distalbranches without aneurysm. Chronic degenerative changes throughout thelumbar spine with mild degenerative retrolisthesis of L2 on L3 withdegenerative loss of disc height and endplate arthrosis at all lumbarlevels with multilevel canal and foraminal narrowing, or central canalstenosis greatest at L4-5 with associated left lateral recess and leftgreater than right foraminal narrowing at L4-5. There is bilateralforaminal stenosis at L5-S1 and at least mild central canal and mildbilateral foraminal narrowing at L3-4. No acute osseous abnormality. IMPRESSION: 1. A 2 x 1.4 x 1.4 cm hypodense lesion in the pancreatic body concerningfor primary neoplasm of the pancreas. Recommend MRI pancreatic massprotocol exam with and without contrast for further assessment. 2. Interval development of moderate bilateral pleural effusions, rightlarger than left. 3. Interval development of partial consolidative airspace opacities inbilateral lungs as noted above, right much greater than left, likelyatypical pneumonia, but recommend follow to resolution to excludeunderlying malignancy or other etiology. 4. Heavy coronary artery calcifications in all 3 coronary arteries, withgreatest burden in the left anterior descending coronary artery. 5. Bladder is decompressed by Blair catheter, limiting evaluation. 6. Small fat-containing right inguinal hernia and tiny fat-containingventral periumbilical hernia. 7. Heavy stool burden in the rectosigmoid colon and descending colonsuggesting constipation. 8. Chronic degenerative changes throughout the lumbar spine withmultilevel canal and foraminal narrowing as noted above, greatest at L4-5with central canal and left subarticular recess and mild bilateralforaminal narrowing at L4-5. There is also moderate to severe bilateralL5-S1 foraminal stenosis and mild central canal and bilateral foraminalnarrowing at L3-4. This CT exam was performed using one or more of the following dosereduction techniques: automated exposure control, adjustment of the mAand/or kV according to patient size, the use of iterative reconstructiontechnique, use of ALARA (As Low As Reasonably Achievable) and/or use ofImage Gently techniques. Referred By: LORENE BRYANT Interpreted By: Megan Lynn MD, 10/26/2024 3:27 AM Lloyd Whitten MD CT Final Re sult * (ABNORMAL) PROCALCITONIN (PCT) (10/26/2024 2:02 AM CDT) PROCALCITONIN 1.54(H) 0.00 - 0.49 NG/ML 10/26/2024 3:11 AM CDT [facility] 10/26/2024 2:02 AM CDT Lloyd Whitten MD LABORATORY Final Re sult [facility] [address] [place] [address], [place] [phone] * LACTIC ACID - SINGLE (10/26/2024 2:02 AM CDT) LACTIC ACID VENOUS 1.6 0.4 - 2.0 MMOL/L 10/26/2024 2:32 AM CDT [facility] 10/26/2024 2:02 AM CDT Lloyd Whitten MD LABORATORY Final Re sult Performing Organization Address City/[facility]/ZIP Co de Phone Number [facility] [address] [place] [address], [place] [phone] * ECG 12 lead (10/26/2024 1:46 AM CDT) 10/26/2024 1:46 AM CDT Narrative [facility] ([facility]) RAD - 10/26/2024 5:43 AM CDT [address] Test Date: 2024-10-26 Pat Name: KEYANA POOL Department: 40 Room: [id number] Gender: Male [employer] Supervisor: RAVI : 1950 Requested By: LLOYD WHITTEN Order Number: [id number] [place] MD: Clark Hogan Measurements Intervals [place] Rate: 87 P: 51 DC: 156 QRS: -50 QRSD: 156 T: 32 QT: 431 QTc: 520 Interpretive Statements SINUS RHYTHM RIGHT BUNDLE BRANCH BLOCK [120+ ms QRS DURATION, UPRIGHT V1, 40+ ms S IN I/aVL/V4/V5/V6] LEFT ANTERIOR FASCICULAR BLOCK [QRS AXIS <= -45, QR IN I, RS IN II] Compared to ECG 07/26/2024 09:22:23 Right bundle-branch block now present Left anterior fascicular block now present Left-axis deviation no longer present Intraventricular conduction delay no longer present Procedure Note Clark Hogan MD - 10/26/[address] Test Date: 2024-10-26 Pat Name: KEYANA POOL Department: 40 Room: [id number] Gender: Male [place] Supervisor: RAVI : 1950 Requested By: LLOYD WHITTEN Order Number: [id number] [place] MD: Clark Hogan Measurements Intervals [place] Rate: 87 P: 51 DC: 156 QRS: -50 QRSD: 156 T: 32 QT: 431 QTc: 520 Interpretive Statements SINUS RHYTHM RIGHT BUNDLE BRANCH BLOCK [120+ ms QRS DURATION, UPRIGHT V1, 40+ ms SIN I/aVL/V4/V5/V6] LEFT ANTERIOR FASCICULAR BLOCK [QRS AXIS <= -45, QR IN I, RS IN II] Compared to ECG 07/26/2024 09:22:23 Right bundle-branch block now present Left anterior fascicular block now present Left-axis deviation no longer present Intraventricular conduction delay no longer present us Lloyd Whitten MD ECG ORDERABLES Final Re sult [facility] RAD * MRSA SCREENING (10/26/2024 1:15 AM CDT) SPEC DESCRIPTION NASAL 10/26/2024 1:15 AM CDT [facility] SPECIAL REQUESTS NO SPECIAL REQUEST 10/26/2024 1:15 AM CDT [facility] CULTURE RESULT NO METHICILLIN RESISTANT STAPHYLOCOCCUS AUREUS ISOLATED 10/27/2024 6:47 AM CDT [facility] SPECIMEN FROM INTERNAL NOSE / Unknown 10/26/2024 1:15 AM CDT 10/26/2024 1:18 AM CDT us Lloyd Whitten MD MICROBIOLOGY - GENERAL O RDERABLES Final Result Performing Organization Address [facility]/ZIP Co de Phone Number [facility] [address] [place] [address], [place] [phone] * COLONOSCOPY (05/31/2018) us Documents Scanned SCANNING Final Result from Last 3 Months or Most Recently Relevant to Health Maintenance Insurance AETNA AETNA Advance Directives * Full Code (Latest Code Status on File) Date Activated Date Inactivated Comments 10/26/2024 11:09 AM 10/30/2024 2:37 PM * Full Code Date Activated Date Inactivated Comments 07/21/2024 6:36 PM 08/03/2024 5:26 PM * Full Code Date Activated Date Inactivated Comments 07/06/2024 10:52 PM 07/12/2024 1:44 AM * Full Code Date Activated Date Inactivated Comments 05/13/2023 9:25 PM 05/18/2023 4:22 PM * Full Code Date Activated Date Inactivated Comments 06/14/2022 6:58 PM 06/16/2022 3:34 PM Care Teams Retail Sales Professional Relationship Specialty Start Date End Date Adrienne Marin MD [address] [place] [address] PCP - General INTERNAL MEDICINE 05/09/24 Gladys Sanchez MD [place] Planer Operator CARDIOVASCULAR DISEASE 05/28/19
--- OUTSIDE RECORDS SUMMARY | 2024-12-23 19:49 | XMS_ITS | Encounter Summary ---
Author Organization [place] Address [facility] [place] [address] Care Team Providers Care Filler Operator Name Role Phone Adrian Lee MD Primary Care Provider [phone] Gladys Sanchez MD Unavailable [phone] Adrienne Marin MD Primary Care Provider [phone] Anna Landry RN Unavailable Unavailable Anna Landry RN Unavailable Unavailable Encounter Details Date Type Department Care Team (Late st Contact Info) Description 10/26/2020 Abstract [facility] [address] [place] [address] Social History Tobacco Use Types Packs/Day Years [...] Sex Assigned at Male 07/08/2024 7:30 AM ASSISTANT PORTFOLIO MANAGER Legal Sex Male 8:56 PM CDT Gender Identity Male 07/08/2024 7:30 AM ASSISTANT PORTFOLIO MANAGER Sexual Orientation Straight 07/08/2024 7: 30 AM ASSISTANT PORTFOLIO MANAGER COVID-19 Exposure Response Date Recorded In the last month, have you been in contact with someone who was confirmed or suspected to have Coronavirus / COVID-19? No / Unsure 10/02/2020 11:49 AM CDT documented as of this encounter Plan of Treatment Upcoming Encounters Date Type Department Care Team (Late st Contact Info) Description 12/24/2024 1:30 PM CDT Appointment [place] [facility] [place] [address] Roc Fulton MD Three [facility] [address] [place], [place] [address] 12/29/2024 1:30 PM CDT Appointment [place] [facility] [place] [address] Roc Fulton MD [facility] [address] [place], [place] [id number] 12/31/2024 1:30 PM CDT Appointment [place] [facility] [place] [address] Roc Fulton MD Three [address] [id number] 01/02/2025 1:30 PM CDT Appointment [place] [facility] [place] [address] Roc Fulton MD Three [facility] [address] [place], [place] [address] 01/05/2025 1:30 PM CDT Appointment [place] [facility] [place] [address] Roc Fulton MD Three [facility] [address] [place], [place] [address] 01/07/2025 1:30 PM CDT Appointment [place] [facility] [address] [place] [address] Roc Fulton MD Three [facility]. [place] [address] [place], [place] [address] 01/09/2025 1:30 PM CDT Appointment [place] [address] [place] [address] Roc Fulton MD Three [facility]. [place] [address] [place], [place] [id number] 01/12/2025 1:30 PM CDT Appointment [place] [address] [place], [place] [address] [address] Roc Fulton MD Three [facility]. [place] [address] [place], [place] [address] 01/14/2025 1:30 PM CDT Appointment [place] [facility] [place] [address] Roc Fulton MD Three [facility]. [facility] [address] [place], [place] [address] 01/16/2025 1:30 PM CDT Appointment [place] [facility] [address] [place] [address] Roc Fulton MD Three [facility]. [place] [address] [place], [place] [id number] 01/19/2025 1:30 PM CDT Appointment [place] [facility] [address] [place] [address] Roc Fulton MD Three [facility]. [place] [address] [place], [place] [id number] 01/21/2025 1:30 PM CDT Appointment [place] [address] [place] [address] Roc Fulton MD Three [facility] [address] [place], [place] [address] 01/23/2025 1:30 PM CDT Appointment [place] [address] [place] [address] Roc Fulton MD Three [facility] [address] [place], [place] [address] 01/26/2025 1:30 PM CDT Appointment [place] [facility] [place] [address] Roc Fulton MD Three [facility] [address] [place], [place] [address] 01/28/2025 1:30 PM CDT Appointment [place] [facility] [place] [address] Roc Fulton MD Three [facility] [address] [place], [place] [address] 01/30/2025 1:30 PM CDT Appointment [place] [facility] [place] [address] Roc Fulton MD Three [facility] [address] [place], [place] [address] 02/02/2025 1:30 PM CDT Appointment [place] [facility] [address] [place] [address] [facility] [address] [place] [address] 02/03/2025 11:00 AM CDT Office Visit [facility] Multispecialty Care - [facility] [address] [facility], [address] [place] [address] Nathan Lechuga MD [address] [facility] [place] [address] 02/04/2025 1:30 PM CDT Appointment [place] [facility] [address] [place] [address] Roc Fulton MD Three [facility]. [place] [address] [place] [address] 02/06/2025 1:30 PM CDT Appointment [place] [facility] [address] [place] [address] Roc Fulton MD Three [facility]. [facility] [address] [place] [address] 02/09/2025 1:30 PM CDT Appointment [place] [facility] [address] [place] [address] Roc Fulton MD Three [facility]. [facility] [address] [place], [place] [address] 02/11/2025 1:30 PM CDT Appointment [place] [facility] [address] [place] [address] Roc Fulton MD Three [facility]. [place] [address] [place] [address] 02/13/2025 1:30 PM CDT Appointment [facility] [address] [place] [address] Roc Fulton MD Three [facility]. [place] [address] [place], [place] [address] 02/16/2025 1:30 PM CDT Appointment [place] [facility] [place] [address] Roc Fulton MD Three [facility]. [place] [address] [place], [place] [address] 02/18/2025 1:30 PM CDT Appointment [place] [facility] [place] [address] Roc Fulton MD Three [facility]. [place] [address] [place], [place] [address] 02/20/2025 1:30 PM CDT Appointment [place] [facility] [place] [address] Roc Fulton MD Three [facility]. [facility] [address] [place], [place] [address] 02/25/2025 1:30 PM CDT Appointment [place] [facility] [place] [address] Roc Fulton MD Three [facility]. [place] [address] [place], [place] [address] 02/27/2025 1:30 PM CDT Appointment [place] [facility] [place] [address] Roc Fulton MD Three [facility]. [place] [address] [place] [address] 03/02/2025 1:30 PM CDT Appointment [facility] [address] [place] [address] [address] [place] [address] Roc Fulton MD Three [facility]. [place] [address] [place] [address] 03/04/2025 1:30 PM CDT Appointment [facility] [address] [place] [address] [place] [address] Roc Fulton MD Three [facility]. [place] [address] [place] [address] 03/06/2025 1:30 PM CDT Appointment [place] [facility] [place] [address] Roc Fulton MD Three [facility]. [place] [address] [place] [address] 03/09/2025 1:30 PM CDT Appointment [facility] [address] [place] [address] [address] [place], [place] [address] Roc Fulton MD Three [facility]. [place] [address] [place] [address] 03/18/2025 2:30 PM CDT Office Visit [facility], [place] [address] [place] [address] Roc Fulton MD Three [facility]. [place] [address] [place] [address] 05/11/2025 2:40 PM ASSISTANT PORTFOLIO MANAGER Office Visit [facility] Diabetes and Endocrinology - [address] [place] [id number] Hannah Garrison MD [address] [place] [address] documented as of this encounter Visit Diagnoses Not on filedocumented in this encounter Additional Health Concerns Infection Onset Date Last Indicated Resolved Time COVID-19 Rule Out 07/19/2021 07/19/2021 07/19/2021 9:17 PM ASSISTANT PORTFOLIO MANAGER COVID-19 Rule Out 07/19/2021 07/19/2021 07/20/2021 7:01 PM ASSISTANT PORTFOLIO MANAGER COVID-19 Rule Out 08/18/2021 08/18/2021 08/18/2021 12:03 PM ASSISTANT PORTFOLIO MANAGER COVID-19 Confirmed 08/18/2021 08/18/2021 12:32 AM CDT COVID-19 Rule Out 09/13/2021 09/13/2021 09/13/2021 5:00 AM CDT COVID-19 Rule Out 05/23/2022 05/23/2022 05/23/2022 3:38 PM ASSISTANT PORTFOLIO MANAGER Influenza - Seasonal 05/23/2022 05/23/2022 023 12:34 AM ASSISTANT PORTFOLIO MANAGER COVID-19 Rule Out 05/13/2023 05/13/2023 05/13/2023 4:14 PM ASSISTANT PORTFOLIO MANAGER COVID-19 Rule Out 05/13/2023 05/13/2023 05/14/2023 1:35 AM ASSISTANT PORTFOLIO MANAGER COVID-19 Rule Out 07/08/2023 07/08/2023 07/08/2023 5:34 PM ASSISTANT PORTFOLIO MANAGER COVID-19 Rule Out 07/07/2024 07/07/2024 07/07/2024 7:39 AM ASSISTANT PORTFOLIO MANAGER documented as of this encounter Care Teams Filler Operator Relationship Specialty Start Date End Date Adrian Lee MD [address] [place] [address] PCP - General FAMILY PRACTICE 04/22/18 05/08/24 Adrienne Marin MD [address] [place] [address] PCP - General INTERNAL MEDICINE 05/09/24 Gladys Sanchez MD [address] [place] [phone] [place] Dredge Lever Operator CARDIOVASCULAR DISEASE 05/28/19 Anna Landry, electronic page makeup system operator (Ambulatory) REGISTERED NURSE 10/29/24 11/02/24 Anna Landry, electronic page makeup system operator (Ambulatory) REGISTERED NURSE 11/03/24 11/09/24 documented as of this encounter
--- OUTSIDE RECORDS SUMMARY | 2024-12-23 19:49 | XMS_ITS | Encounter Summary ---
Author Organization [facility] Address [facility] [place] [address] Care Team Providers Care Supervisor Home Restoration Service Name Role Phone Adrian Lee MD Primary Care Provider [phone] Gladys Sanchez MD Unavailable [phone] Adrienne Marin MD Primary Care Provider [phone] Anna Landry RN Unavailable Unavailable Anna Landry RN Unavailable Unavailable Encounter Details Date Type Department Care Team (Late st Contact Info) Description 06/20/2022 Hospital Follow-up Call [facility] Card[facility] Rehab [address] [place] [address] Asia Weiner RN Social History Tobacco Use Types Packs/Day [...] Sex Assigned at Male 07/08/2024 7:30 AM RESIST COATER DEVELOPER Legal Sex Male 8:56 PM CDT Gender Identity Male 07/08/2024 7:30 AM RESIST COATER DEVELOPER Sexual Orientation Straight 07/08/2024 7: 30 AM RESIST COATER DEVELOPER COVID-19 Exposure Response Date Recorded In the last 10 days, have yo u been in contact with someone who was confirmed or suspected to have Coronavirus/COVID-19? No / Unsure 06/14/2022 6:51 PM RESIST COATER DEVELOPER documented as of this encounter Functional Status * RETIRED Are you deaf or do you have serious difficulty hearing Answer Date of Assessment Author Status Yes 06/14/2022 7:00 PM RESIST COATER DEVELOPER Activ e * RETIRED Are you blind or do you have serious difficulty seeing, even when wearing glasses? Answer Date of Assessment Author Status No 06/14/2022 7:00 PM RESIST COATER DEVELOPER Activ e * Do you have serious difficulty walking or climbing stairs? Answer Date of Assessment Author Status No 06/14/2022 7:00 PM RESIST COATER DEVELOPER Cathy Giles RN Active * Do you have difficulty dressing or bathing? Answer Date of Assessment Author Status No 06/14/2022 7:00 PM Cathy Osuna RN Active * Because of a physical, mental, or emotional condition, do you have difficulty doing errands alone such as visiting a doctor's office or shopping? Answer Date of Assessment Author Status No 06/14/2022 7:00 PM RESIST COATER DEVELOPER Cathy Giles RN Active documented as of [...] Info) Description 12/24/2024 1:30 PM CDT Appointment [facility] [address] [place] [address] Roc Fulton MD [facility] [address] [place], [place] [address] 12/29/2024 1:30 PM CDT Appointment [facility] [address] [place] [address] Roc Fulton MD [facility] [address] [place], [place] [address] 12/31/2024 1:30 PM CDT Appointment [facility] [address] [place] [address] Roc Fulton MD [facility]. [facility] [address] [place], [place] [address] 01/02/2025 1:30 PM CDT Appointment [facility] [address] [place] [address] Roc Fulton MD [facility]. [facility] [address] [place] [address] 01/05/2025 1:30 PM CDT Appointment [facility] [address] [place] [address] Roc Fulton MD [facility]. [facility] [address] [place], [place] [address] 01/07/2025 1:30 PM CDT Appointment [facility] [address] [place] [address] Roc Fulton MD [facility]. [facility] [address] [place] [address] 01/09/2025 1:30 PM CDT Appointment [facility] [address] [place] [address] Roc Fulton MD [facility]. [facility] [address] [place] [address] 01/12/2025 1:30 PM CDT Appointment [facility] [address] [place] [address] Roc Fulton MD [facility]. [facility] [address] [place], [place] [address] 01/14/2025 1:30 PM CDT Appointment [facility] [address] [place], [place] [address] [place], [place] [address] Roc Fulton MD [facility]. [facility] [address] [place], [place] [address] 01/16/2025 1:30 PM CDT Appointment [facility] [address] [place] [address] [place] [address] Roc Fulton MD [facility]. [facility] [address] [place], [place] [address] 01/19/2025 1:30 PM CDT Appointment [facility] [address] [place] [address] [address] [place] [address] Roc Fulton MD [facility]. [facility] [address] [place], [place] [address] 01/21/2025 1:30 PM CDT Appointment [facility] [address] [place] [address] [place] [address] Roc Fulton MD [facility]. [facility] [address] [place], [place] [address] 01/23/2025 1:30 PM CDT Appointment [facility] [address] [place] [address] [place] [address] Roc Fulton MD [facility]. [facility] [address] [place], [place] [address] 01/26/2025 1:30 PM CDT Appointment [facility] [address] [place] [address] Roc Fulton MD [facility]. [facility] [address] [place], [place] [address] 01/28/2025 1:30 PM CDT Appointment [facility] [address] [place] [address] Roc Fulton MD [facility]. [facility] [address] [place], [place] [address] 01/30/2025 1:30 PM CDT Appointment [facility] [address] [place] [address] Roc Fulton MD [facility]. [facility] [address] [place] [address] 02/02/2025 1:30 PM CDT Appointment [facility] [address] [place] [address] Roc Fulton MD [facility]. [place] [address] [place] [address] 02/03/2025 11:00 AM CDT Office Visit [facility] Medical Group Multispecialty Care - [facility] [address] [facility], [address] [place] [address] Nathan Lechuga MD [address] [place] [address] 02/04/2025 1:30 PM CDT Appointment [facility] [address] [place] [address] Roc Fulton MD [facility]. [facility] [address] [place], [place] [address] 02/06/2025 1:30 PM CDT Appointment [facility] [address] [place] [address] Roc Fulton MD [facility]. [facility] [address] [place], [place] [address] 02/09/2025 1:30 PM CDT Appointment [facility] [address] [place] [address] Roc Futlon MD [facility]. [facility] [address] [place], [place] 269839 02/11/2025 1:30 PM CDT Appointment [facility] [address] [place] [address] Roc Fulton MD [facility]. [facility] [address] [place], [place] [address] 02/13/2025 1:30 PM CDT App[facility]ment [facility] [place] [address] Roc Fulton MD [facility]. [facility] [address] [place], [place] [address] 02/16/2025 1:30 PM CDT Appointment [facility] [address] [place] [address] Roc Fulton MD Three [facility] [address] [place], [place] [address]65[address] 02/18/2025 1:30 PM CDT Appointment [facility] [address] [place] [address] Roc Fulton MD [facility]. [facility] [address] [place], [place] [address] 02/20/2025 1:30 PM CDT Appointment [facility] [address] [place] [address] Roc Fulton MD [facility]. [facility] [address] [place], [place] [address]2089 02/25/2025 1:30 PM CDT Appointment [facility] [place] [address] Roc Fulton MD [facility]. [facility] [address] [place], [place] [address]2549 02/27/2025 1:30 PM CDT Appointment [facility] [place] [address] Roc Fulton MD Three [facility] [address] [place], [place] [address] 03/02/2025 1:30 PM CDT Appointment [facility] [place] [address] Roc Fulton MD [facility]. [facility] [address] [place], [place] [address] 03/04/2025 1:30 PM CDT Appointment [facility] [place] [address] Roc Fulton MD Three [facility] [address] [place], [place] 7[address]49 03/06/2025 1:30 PM CDT Appointment [facility] [address] [place] [address] [place] [address] Roc Fulton MD [place]. [facility] [address] [place], [place] [address] 03/09/2025 1:30 PM CDT Appointment [facility] [address] [place] [address] [place] [address] Roc Fulton MD [place]. [facility] [address] [place], [place] 225[address]29 03/18/2025 2:30 PM CDT [facility] [address] [place], [place] [address] Roc Fulton MD [place]. [facility] [address] [place], [place] [address]1069 05/11/2025 2:40 PM RESIST COATER DEVELOPER Office Visit [facility] Medical Group Diabetes and Endocrinology - [address] [address] Hannah Garrison MD [address] [place] [address] documented as of this encounter Goals Goal Patient Goal Type Associated Problems Recent Progress Patient-Stated? Author Patient will return to prior living situation and remain independent in ADLs upon discharge from hospital General No Diana Todd, natural resources engineer - family caregiver with be involved in care transitions and discharge planning General No Nicole Cole RN Safety Patient/family will have appropriate support at home upon discharge General No Ayleen Garcia, FINANCING ANALYST documented as of this encounter Visit Diagnoses Not on filedocumented in this encounter Additional Health Concerns Infection Onset Date Last Indicated Resolved Time Influenza - Seasonal 05/23/2022 05/23/2022 023 12:34 AM RESIST COATER DEVELOPER COVID-19 Rule Out 05/13/2023 05/13/2023 05/13/2023 4:14 PM RESIST COATER DEVELOPER COVID-19 Rule Out 05/13/2023 05/13/2023 05/14/2023 1:35 AM RESIST COATER DEVELOPER COVID-19 Rule Out 07/08/2023 07/08/2023 07/08/2023 5:34 PM RESIST COATER DEVELOPER COVID-19 Rule Out 07/07/2024 07/07/2024 07/07/2024 7:39 AM RESIST COATER DEVELOPER Assessment Noted Time PHQ-9 Depression Total Score: 0 11/19/19 3:11 PM CDT documented as of this encounter Care Teams Supervisor Home Restoration Service Relationship Specialty Start Date End Date Adrian Lee MD [address] [place] [address] PCP - General FAMILY PRACTICE 04/22/18 05/08/24 Adrienne Marin MD [address] [place] [address] PCP - General INTERNAL MEDICINE 05/09/24 Gladys Sanchez MD [address] [place] [address] Thompson Child Support Case Officer CARDIOVASCULAR DISEASE 05/28/19 Anna Landry college or university faculty member (Ambulatory) REGISTERED NURSE 10/29/24 11/02/24 Anna Landry RN Care Manager (Ambulatory) REGISTERED NURSE 11/03/24 11/09/24 documented as of this encounter
--- OUTSIDE RECORDS SUMMARY | 2024-12-23 19:49 | XMS_ITS | Encounter Summary ---
Author Organization [facility] Address Count includes the [facility] [place] [address] Care Team Providers Care Finishing Range Feeder Name Role Phone Adrian Lee MD Primary Care Provider [phone] Gladys Sanchez MD Unavailable Adrienne Marin MD Primary Care Provider [phone] Anna Landry RN Unavailable Unavailable Anna Landry RN Unavailable Unavailable Encounter Details Date Type Department Care Team (Late st Contact Info) Description 01/24/2023 Abstract [facility] [address] [place] [address] Flakito Hernandez MD Social History Tobacco Use [...] Sex Assigned at Male 07/08/2024 7:30 AM NUCLEAR MEDICINE CHIEF TECHNOLOGIST Legal Sex Male 8:56 PM CDT Gender Identity Male 07/08/2024 7:30 AM NUCLEAR MEDICINE CHIEF TECHNOLOGIST Sexual Orientation Straight 07/08/2024 7: 30 AM NUCLEAR MEDICINE CHIEF TECHNOLOGIST documented as of this encounter Functional Status * RETIRED Are you deaf or do you have serious difficulty hearing Answer Date of Assessment Author Status Yes 06/14/2022 7:00 PM NUCLEAR MEDICINE CHIEF TECHNOLOGIST Activ e * RETIRED Are you blind or do you have serious difficulty seeing, even when wearing glasses? Answer Date of Assessment Author Status No 06/14/2022 7:00 PM NUCLEAR MEDICINE CHIEF TECHNOLOGIST Activ e * Do you have serious [...] Info) Description 12/24/2024 1:30 PM CDT Appointment [place] [address] Roc Fulton MD [address] [address] 12/29/2024 1:30 PM CDT Appointment [place] [address] Roc Fulton MD [address] [address] 12/31/2024 1:30 PM CDT Appointment [place] [address] Roc Fulton MD Three [facility]. [facility] [address] [place], [place] [address] 01/02/2025 1:30 PM CDT Appointment [facility] [address] [place], [place] [address] [place] [address] Roc Fulton MD Three [facility]. [facility] [address] [place], [place] [address] 01/05/2025 1:30 PM CDT Appointment [facility] [address] [place] [address] [place] [address] Roc Fulton MD Three [facility]. [facility] [address] [place], [place] [address] 01/07/2025 1:30 PM CDT Appointment [facility] [address] [place] [address] [address] [place] [address] Roc Fulton MD Three [facility]. [facility] [address] [place], [place] [address] 01/09/2025 1:30 PM CDT Appointment [facility] [address] [place] [address] [place] [address] Roc Fulton MD [facility]. [facility] [address] [place], [place] [address] 01/12/2025 1:30 PM CDT Appointment [facility] [address] [place] [address] [place] [address] Roc Fulton MD [facility]. [facility] [address] [place], [place] [address]99[address] 01/14/2025 1:30 PM CDT Appointment [facility] [address] [facility] [place] [address] Roc Fulton MD Three [facility]. [facility] [address] [place], [place] [address] 01/16/2025 1:30 PM CDT Appointment [facility] [address] [place] [address] Roc Fulton MD Three [facility] [address] [place], [place] [address] 01/19/2025 1:30 PM CDT Appointment [facility] [address] [place] [address] [place] [address] Roc Fulton MD Three [facility] [address] [place], [place] [address]3429 01/21/2025 1:30 PM CDT Appointment [facility] [place] [address] Roc Fulton MD Three [facility] [address] [place], [place] [address] 01/23/2025 1:30 PM CDT Appointment [facility] [place] [address] Roc Fulton MD Three [facility] [address] [place], [place] [address] 01/26/2025 1:30 PM CDT Appointment [facility] [place] [address] Roc Fulton MD Three [facility] [address] [place], [place] [address]1339 01/28/2025 1:30 PM CDT Appointment [facility] [address] [place] [address] Roc Fulton MD Three [facility]. [address] [address] 01/30/2025 1:30 PM CDT Appointment [facility] [place] [address] Roc Fulton MD Three [address] [address] 02/02/2025 1:30 PM CDT Appointment [facility] [place] [address] Roc Fulton MD Three [address] [address] 02/03/2025 11:00 AM CDT Office Visit [facility] Medical Group Multispecialty Care - [facility] [address] [facility], [address] [place] [address] Nathan Lechuga MD [address] [place] [address] 02/04/2025 1:30 PM CDT Appointment [facility] [place] [address] Roc Fulton MD Three [address] [address] 02/06/2025 1:30 PM CDT Appointment [facility] [place] [address] Roc Fulton MD Three [facility]. [facility] [address] [place], [place] [address] 02/09/2025 1:30 PM CDT Appointment [facility] [address] [place] [address] Roc Fulton MD Three [facility]. [facility] [address] [place], [place] [address] 02/11/2025 1:30 PM CDT Appointment [facility] [place] [address] Roc Fulton MD Three [facility]. [facility] [address] [place], [place] [address] 02/13/2025 1:30 PM CDT Appointment [facility] [place] [address] Roc Fulton MD Three [facility] [address] [place], [place] [address] 02/16/2025 1:30 PM CDT Appointment [facility] [place] [address] Roc Fulton MD [facility]. [facility] [address] [place], [place] [address] 02/18/2025 1:30 PM CDT Appointment [facility] [place] [address] Roc Fulton MD Three [facility] [address] [place], [place] [address]6439 02/20/2025 1:30 PM CDT Appointment [facility] [address] [place] [address] Roc Fulton MD Three [facility]. [facility] [address] [place], [place] [address] 02/25/2025 1:30 PM CDT Appointment [facility] [address] [place] [address] Roc Fulton MD [facility]. [facility] [address] [place], [place] [address] 02/27/2025 1:30 PM CDT Appointment [facility] [address] [place] [address] Roc Fulton MD [facility]. [facility] [address] [place], [place] [address] 03/02/2025 1:30 PM CDT Appointment [facility] [place] [address] Roc Fulton MD Three [facility]. [facility] [address] [place], [place] [address] 03/04/2025 1:30 PM CDT Appointment [facility] [place] [address] Roc Fulton MD [facility]. [facility] [address] [place], [place] [address]30[address] 03/06/2025 1:30 PM CDT Appointment [facility] [place] [address] Roc Fulton MD [facility]. [facility] [address] [place] [address] 03/09/2025 1:30 PM CDT Appointment [facility] [address] [place] [address] [place] [address] Roc Fulton MD [facility]. [facility] [address] [place], [place] [address] 03/18/2025 2:30 PM CDT Office Visit [facility], [place] [address] [place], [place] [address] Roc Fulton MD Three [facility]. [facility] [address] [place], [place] [address] 05/11/2025 2:40 PM NUCLEAR MEDICINE CHIEF TECHNOLOGIST Office Visit [facility] Medical Group Diabetes and Endocrinology - [address] [address] Hannah Garrison MD [address] [place] [address] documented as of this encounter Goals [...] home upon discharge General No Ayleen Garcia DOOR TO DOOR SELLING AGENT documented as of this encounter Visit Diagnoses Not on filedocumented in this encounter Additional Health Concerns Infection Onset Date Last Indicated Resolved Time COVID-19 Rule Out 05/13/2023 05/13/2023 05/13/2023 4:14 PM NUCLEAR MEDICINE CHIEF TECHNOLOGIST COVID-19 Rule Out 05/13/2023 05/13/2023 05/14/2023 1:35 AM NUCLEAR MEDICINE CHIEF TECHNOLOGIST COVID-19 Rule Out 07/08/2023 07/08/2023 07/08/2023 5:34 PM NUCLEAR MEDICINE CHIEF TECHNOLOGIST COVID-19 Rule Out 07/07/2024 07/07/2024 07/07/2024 7:39 AM NUCLEAR MEDICINE CHIEF TECHNOLOGIST Assessment Noted Time PHQ-9 Depression Total Score: 0 11/19/19 22 3:11 PM CDT documented as of this encounter Care Teams Finishing Range Feeder Relationship Specialty Start Date End Date Adrian Lee MD [address] [place] [address] PCP - General FAMILY PRACTICE 04/22/18 05/08/24 Adrienne Marin MD [address] [place] [address] PCP - General INTERNAL MEDICINE 05/09/24 Gladys Sanchez MD [address] [place] [address] [place] [employer] CARDIOVASCULAR DISEASE 05/28/19 Anna Landry, field broomer (Ambulatory) REGISTERED NURSE 10/29/24 11/02/24 Anna Landry, field broomer (Ambulatory) REGISTERED NURSE 11/03/24 11/09/24 documented as of this encounter
--- OUTSIDE RECORDS SUMMARY | 2024-12-23 19:49 | XMS_ITS | Encounter Summary ---
Author Organization [facility] Address [facility] [place] [address] Care Team Providers Care Sheet Roller Operator Name Role Phone Gladys Sanchez MD Unavailable [phone] Adrienne Marin MD Primary Care Provider [phone] Anna Landry RN Unavailable Unavailable Anna Landry RN Unavailable Unavailable Encounter Details Date Type Department Care Team (Late st Contact Info) Description 10/13/2024 Workle Message Enc [facility] Medical Group Call Center [address] [place] [address] [facility] Provider levETIRAcetam (KEPPRA) 750 MG tablet Social History Tobacco Use Types Packs/Day Years Used Date Smoking Tobacco: Never Passive Smoke Exposure: Never Smokeless Tobacco: Never Comments:non-smoker Alcohol Use Standard Drinks/Week Comments No 0 (1 standard drink = 0.6 oz pur e alcohol) [facility] Utilities Answer Date Recorded In the past 12 months has [employer], oil, or water [employer] threatened to shut off services in your [...] any time in the past 12 m [facility], were you homeless or living in a senior care (including now)? No 07/15/2024 Sex and Gender Information Value Date Recorded Sex Assigned at Male 07/08/2024 7:30 AM HEALTH EDUCATION ASSISTANT Legal Sex Male 8:56 PM CDT Gender Identity Male 07/08/2024 7:30 AM HEALTH EDUCATION ASSISTANT Sexual Orientation Straight 07/08/2024 7: 30 AM HEALTH EDUCATION ASSISTANT documented as of this encounter Functional [...] Info) Description 12/24/2024 1:30 PM CDT Appointment [facility] [address] [place] [address] Roc Fulton MD [address] [address] 12/29/2024 1:30 PM CDT Appointment [facility] [address] [place] [address] Roc Fulton MD Three [facility]. [place] [address] [place], [place] [address] 12/31/2024 1:30 PM CDT Appointment [facility] [address] [place] [address] Roc Fulton MD Three [facility] [place] [address] [place], [place] [address] 01/02/2025 1:30 PM CDT Appointment [facility] [address] [place] [address] Roc Fulton MD Three [facility] [address] [place], [place] [address] 01/05/2025 1:30 PM CDT Appointment [facility] [address] [place] [address] Roc Fulton MD [facility] [address] [place], [place] [address] 01/07/2025 1:30 PM CDT Appointment [facility] [address] [place] [address] Roc Fulton MD [facility] [address] [place], [place] [address] 01/09/2025 1:30 PM CDT Appointment [facility] [address] [place] [address] Roc Fulton MD Three [facility]. [facility] [address] [place], [place] [address] 01/12/2025 1:30 PM CDT Appointment [facility] [address] [place] [address] Roc Fulton MD Three [facility]. [facility] [address] [place], [place] 99[address] 01/14/2025 1:30 PM CDT Appointment [facility] [address] [place] [address] Roc Fulton MD Three [facility]. [facility] [address] [place], [place] [address] 01/16/2025 1:30 PM CDT Appointment [facility] [place] [address] Roc Fulton MD Three [facility]. [facility] [address] [place], [place] [address] 01/19/2025 1:30 PM CDT App[facility]ment [facility] [place] [address] Roc Fulton MD Three [facility]. [facility] [address] [place], [place] [address]89 01/21/2025 1:30 PM CDT Appointment [facility] [address] [place] [address] Roc Fulton MD Three [facility] [address] [place], [place] [address]99 01/23/2025 1:30 PM CDT Appointment [facility] [address] [place] [address] Roc Fulton MD Three [facility]. [facility] [address] [place], [place] 444399 01/26/2025 1:30 PM CDT App[facility]ment [facility] [address] [place] [address] Roc Fulton MD Three [facility]. [facility] [address] [place] [address] 01/28/2025 1:30 PM CDT App[facility]ment [facility] [address] [place] [address] Roc Fulton MD Three [facility]. [facility] [address] [place] [address] 01/30/2025 1:30 PM CDT App[facility]ment [facility] [address] [place] [address] Roc Fulton MD Three [facility]. [facility] [address] [place], [place] [address] 02/02/2025 1:30 PM CDT App[facility]ment [facility] [address] [place] [address] Roc Fulton MD Three [facility]. [facility] [address] [place] [address] 02/03/2025 11:00 AM CDT Office Visit [facility] Medical Group Multispecialty Care - [facility] [address] [facility], [address] [place] [address] Nathan Lechuga MD [address] [place] [address] 02/04/2025 1:30 PM CDT Appointment [facility] [address] [place] [address] Roc Fulton MD Three [facility]. [facility] [address] [place], [place] [address] 02/06/2025 1:30 PM CDT App[facility]ment [facility] [address] [place] [address] Roc Fulton MD Three [facility]. [address] [address] 02/09/2025 1:30 PM CDT App[facility]ment [facility] [place] [address] Roc Fulton MD Three [facility]. [address] [address] 02/11/2025 1:30 PM CDT App[facility]ment [facility] [place] [address] Roc Fulton MD Three [facility]. [address] [address] 02/13/2025 1:30 PM CDT App[facility]ment [facility] [place] [address] Roc Fulton MD Three [facility] [address] [place] [address] 02/16/2025 1:30 PM CDT App[facility]ment [facility] [place] [address] Roc Fulton MD Three [facility]. [place] [address] [place], [place] [address] 02/18/2025 1:30 PM CDT App[facility]ment [facility] [address] [place] [address] Roc Fulton MD Three [facility]. [place] [address] [place], [place] 893039 02/20/2025 1:30 PM CDT App[facility]ment [facility] [address] [place] [address] Roc Fulton MD Three [facility]. [facility] [address] [place], [place] [address] 02/25/2025 1:30 PM CDT App[facility]ment [facility] [address] [place] [address] [place] [address] Roc Fulton MD Three [facility]. [facility] [address] [place], [place] [address] 02/27/2025 1:30 PM CDT App[facility]ment [facility] [place] [address] Roc Fulton MD Three [facility]. [facility] [address] [place], [place] [address] 03/02/2025 1:30 PM CDT App[facility]ment [facility] [place] [address] Roc Fulton MD Three [facility]. [facility] [address] [place] [address] 03/04/2025 1:30 PM CDT App[facility]ment [facility] [address] [place] [address] Roc Fulton MD Three [facility]. [facility] [address] [place], [place] 3[address] 03/06/2025 1:30 PM CDT App[facility]ment [facility] [address] [place] [address] [address] [place] [address] Roc Fulton MD Three [facility]. [facility] [address] [place], [place] [address] 03/09/2025 1:30 PM CDT App[facility]ment [facility] [address] [place] [address] [place] [address] Roc Fulton MD [facility]. [facility] [address] [place], [place] [address] 03/18/2025 2:30 PM CDT Office Visit [facility] [address] [facility], [address] [place], [place] [id number] oRc Fultno MD Three [facility]. [facility] [address] [place], [place] [address] 05/11/2025 2:40 PM HEALTH EDUCATION ASSISTANT Office Visit [facility] Medical Group Diabetes and Endocrinology - [address] [address] Hannah Garrison MD [address] [place] [address] documented as of this encounter Goals Goal Patient Goal Type Associated Problems Recent Progress Patient-Stated? Author Patient will return to prior living situation and remain independent in ADLs upon discharge from hospital General No Diana Todd, saddle mechanic - family caregiver with be involved in care transitions and discharge planning General No Cole, Nicole M, RN Safety Patient/family will have appropriate support at home upon discharge General No yAleen Garcia, SHELL MOLD BONDER documented as of this encounter Visit Diagnoses Not on filedocumented in this encounter Additional Health Concerns Assessment Noted Time PHQ-9 Depression Total Score: 0 11/19/19 22 3:11 PM CDT documented as of this encounter Care Teams Sheet Roller Operator Relationship Specialty Start Date End Date Adrienne Marin MD [address] [place] [phone] PCP - General INTERNAL MEDICINE 05/09/24 Gladys Sanchez MD [place] [employer] CARDIOVASCULAR DISEASE 05/28/19 Anna Landry security test engineer (Ambulatory) REGISTERED NURSE 10/29/24 11/02/24 Anna Landry RN Care Manager (Ambulatory) REGISTERED NURSE 11/03/24 11/09/24 documented as of this encounter
--- OUTSIDE RECORDS SUMMARY | 2024-12-23 19:49 | XMS_ITS | Encounter Summary ---
Author Organization [facility] Address [address] [place] [address] Care Team Providers Care Camera Technician Name Role Phone Pee Lafleur MD Unavailable Unavailable Adrian Lee MD Primary Care Provider [phone] Gladys Sanchez MD Unavailable [phone] Adrienne Marin MD Primary Care Provider [phone] Anna Landry RN Unavailable Unavailable Anna Landry RN Unavailable Unavailable Encounter Details Date Type Department Care Team (Late st Contact Info) Description 11/30/2018 Abstract [facility] [address] [place] [address] , Generic Conversion, Social History Tobacco Use Types Packs/Day Years Used Date Smoking Tobacco: Never Smokeless Tobacco: Never Sex and Gender Information Value Date Recorded Sex Assigned at Male 07/08/2024 7:30 AM RADIOTELEPHONE OPERATOR Legal Sex Male 8:56 PM CDT Gender Identity Male 07/08/2024 7:30 AM RADIOTELEPHONE OPERATOR Sexual Orientation Straight 07/08/2024 7: 30 AM RADIOTELEPHONE OPERATOR documented as of this encounter Plan of Treatment Upcoming Encounters Date Type Department Care Team (Late st Contact Info) Description 12/24/2024 1:30 PM CDT [facility] [address] [place] [address] Roc Fulton MD [address] [address] 12/29/2024 1:30 PM CDT Appointment [facility] [address] [place] [address] Roc Fulton MD Three [facility]. [facility] [address] [place], [place] [address] 12/31/2024 1:30 PM CDT Appointment [facility] [address] [place] [address] Roc Fulton MD Three [facility] [address] [place], [place] [address] 01/02/2025 1:30 PM CDT Appointment [facility] [place] [address] Roc Fulton MD Three [facility] [address] [place], [place] [address] 01/05/2025 1:30 PM CDT Appointment [facility] [place] [address] Roc Fulton MD Three [address] [address] 01/07/2025 1:30 PM CDT Appointment [facility] [place] [address] Roc Fulton MD Three [address] [address] 01/09/2025 1:30 PM CDT Appointment [facility] [place] [address] Roc Fulton MD Three [facility] [address] [place], [place] [address] 01/12/2025 1:30 PM CDT Appointment [facility] [address] [place] [address] Roc Fulton MD Three [facility]. [facility] [address] [place], [place] [address] 01/14/2025 1:30 PM CDT Appointment [facility] [address] [place] [address] Roc Fulton MD Three [facility]. [facility] [address] [place] [address] 01/16/2025 1:30 PM CDT Appointment [facility] [place] [address] Roc Fulton MD Three [facility]. [facility] [address] [place], [place] [address] 01/19/2025 1:30 PM CDT Appointment [facility] [place] [address] Roc Fulton MD Three [facility]. [facility] [address] [place], [place] [address] 01/21/2025 1:30 PM CDT Appointment [facility] [address] [place] [address] Roc Fulton MD Three [facility]. [facility] [address] [place] [address] 01/23/2025 1:30 PM CDT Appointment [facility] [place] [address] Roc Fulton MD Three [facility] [facility] [address] [place], [place] [address] 01/26/2025 1:30 PM CDT Appointment [facility] [address] [place] [address] Roc Fulton MD Three [facility]. [place] [address] [place], [place] [address] 01/28/2025 1:30 PM CDT Appointment [facility] [address] [facility] [place] [address] Roc Fulton MD Three [facility]. [facility] [address] [place], [place] [address] 01/30/2025 1:30 PM CDT Appointment [facility] [address] [facility] [place] [address] [place] [address] Roc Fulton MD Three [facility]. [facility] [address] [place], [place] [address] 02/02/2025 1:30 PM CDT Appointment [facility] [address] [place] [address] [address] [place] [address] Roc Fulton MD Three [facility]. [facility] [address] [place] [address] 02/03/2025 11:00 AM CDT Office Visit [facility] Medical Group Multispecialty Care - [facility] [address] [facility], [address] [place] [address] Nathan Lechuga MD 3 [facility] [place] [address] 02/04/2025 1:30 PM CDT Appointment [facility] [address] [place] [address] Roc Fulton MD Three [facility] [address] [place], [place] [address] 02/06/2025 1:30 PM CDT Appointment [facility] [place] [address] Roc Fulton MD Three [facility] [address] [place], [place] [address] 02/09/2025 1:30 PM CDT Appointment [facility] [place] [address] Roc Fulton MD Three [facility] [address] [place], [place] [address] 02/11/2025 1:30 PM CDT Appointment [facility] [place] [address] Roc Fulton MD [facility] [address] [place], [place] [address] 02/13/2025 1:30 PM CDT Appointment [facility] [place] [address] Roc Fulton MD Three [facility] [address] [place], [place] [address] 02/16/2025 1:30 PM CDT Appointment [facility] [place] [address] [facility] MD [facility] [address] [place], [place] [address] 02/18/2025 1:30 PM CDT Appointment [facility] [address] [place] [address] Roc Fulton MD Three [facility]. [facility] [address] [place], [place] [address] 02/20/2025 1:30 PM CDT Appointment [facility] [address] [place] [address] Roc Fulton MD Three [facility]. [facility] [address] [place], [place] [address] 02/25/2025 1:30 PM CDT Appointment [facility] [place] [address] Roc Fulton MD Three [facility]. [facility] [address] [place], [place] [address] 02/27/2025 1:30 PM CDT Appointment [facility] [place] [address] Roc Fulton MD Three [facility]. [facility] [address] [place], [place] [address] 03/02/2025 1:30 PM CDT Appointment [facility] [place] [address] Roc Fulton MD Three [facility]. [facility] [address] [place], [place] [address] 03/04/2025 1:30 PM CDT Appointment [facility] [place] [address] Roc Fulton MD Three [facility]. [facility] [address] [place], [place] [address] 03/06/2025 1:30 PM CDT Appointment [facility] [address] [place] [address] [address] [place] [address] Roc Fulton MD Three [facility]. [place] [address] [place], [place] [address] 03/09/2025 1:30 PM CDT Appointment [facility] [address] [place] [address] [place] [address] [facility] [address] [place], [place] [address] 03/18/2025 2:30 PM CDT Office Visit [facility], [facility] [address] [place], [place] [address] Roc Fulton MD [facility] [address] [place], [place] [address] 05/11/2025 2:40 PM RADIOTELEPHONE OPERATOR Office Visit [facility] Medical Group Diabetes and Endocrinology - [address] [address] Hannah Garrison MD [address] [place] [address] documented as of this encounter Visit Diagnoses Not on filedocumented in this encounter Additional Health Concerns Infection Onset Date Last Indicated Resolved Time COVID-19 Rule Out 07/19/2021 07/19/2021 07/19/2021 9:17 PM RADIOTELEPHONE OPERATOR COVID-19 Rule Out 07/19/2021 07/19/2021 07/20/2021 7:01 PM RADIOTELEPHONE OPERATOR COVID-19 Rule Out 08/18/2021 08/18/2021 08/18/2021 12:03 PM RADIOTELEPHONE OPERATOR COVID-19 Confirmed 08/18/2021 08/18/2021 12:32 AM CDT COVID-19 Rule Out 09/13/2021 09/13/2021 09/13/2021 5:00 AM CDT COVID-19 Rule Out 05/23/2022 05/23/2022 05/23/2022 3:38 PM RADIOTELEPHONE OPERATOR Influenza - Seasonal 05/23/2022 05/23/2022 023 12:34 AM RADIOTELEPHONE OPERATOR COVID-19 Rule Out 05/13/2023 05/13/2023 05/13/2023 4:14 PM RADIOTELEPHONE OPERATOR COVID-19 Rule Out 05/13/2023 05/13/2023 05/14/2023 1:35 AM RADIOTELEPHONE OPERATOR COVID-19 Rule Out 07/08/2023 07/08/2023 07/08/2023 5:34 PM RADIOTELEPHONE OPERATOR COVID-19 Rule Out 07/07/2024 07/07/2024 07/07/2024 7:39 AM RADIOTELEPHONE OPERATOR documented as of this encounter Care Teams Camera Technician Relationship Specialty Start Date End Date Adrian Lee MD [address] [place] [phone] PCP - General FAMILY PRACTICE 04/22/18 05/08/24 Adrienne Marin MD [address] [place] [address] PCP - General INTERNAL MEDICINE 05/09/24 Pee Lafleur MD [employer] CARDIOVASCULAR DISEASE 11/02/17 05/27/19 Gladys Sanchez MD [address] [place] [phone] [place] [employer] CARDIOVASCULAR DISEASE 05/28/19 Anna Landry, mds nurse (Ambulatory) REGISTERED NURSE 10/29/24 11/02/24 Anna Landry mds nurse (Ambulatory) REGISTERED NURSE 11/03/24 11/09/24 documented as of this encounter
--- OUTSIDE RECORDS SUMMARY | 2024-12-23 19:49 | XMS_ITS | Encounter Summary ---
Author Organization [facility] Address [address] [place] [address] Care Team Providers Care [employer] Gunsmith Name Role Phone lGadys Sanchez MD Unavailable [phone] Adrienne Marin MD Primary Care Provider [phone] Encounter Details Date Type Department Care Team (Late st Contact Info) Description 11/13/2024 Abstract [facility] [address] Joya Vera MA Social History Tobacco Use Types Packs/Day Years Used Date Smoking Tobacco: Never Passive Smoke Exposure: Never Smokeless Tobacco: Never Comments:non-smoker Alcohol Use Standard Drinks/Week Comments No 0 (1 standard drink = 0.6 oz pur e alcohol) [facility] Utilities Answer Date Recorded In the past 12 months has [employer], gas, oil, or water [employer] threatened to shut off services in your [...] place to sleep or slept in a halfway (including now)? No 05/13/2023 Housing Stability Vital Sign Answer Jayden e Recorded In the last 12 months, was t here a time when you were not able to pay the mortgage or rent on time? No 10/26/2024 In the past 12 months, how m any times have you moved where you were living? 0 10/26/2024 At any time in the past 12 m [facility], were you homeless or living in a halfway (including now)? No 10/26/2024 Sex and Gender Information Value Date Recorded Sex Assigned at Male 07/08/2024 7:30 AM PATIENT REGISTRATION REPRESENTATIVE Legal Sex Male 8:56 PM CDT Gender Identity Male 07/08/2024 7:30 AM PATIENT REGISTRATION REPRESENTATIVE Sexual Orientation Straight 07/08/2024 7: 30 AM PATIENT REGISTRATION REPRESENTATIVE documented as of this encounter Functional Status [...] Info) Description 12/24/2024 1:[address] [facility] [address] [place] [address] Roc Fulton MD [facility] [address] [place] [address] 12/29/2024 1:[address] [facility] [address] [place] [address] Roc Fulton MD [facility] [address] [place], [place] [address] 12/31/2024 1:[address] [facility] [address] [place] [address] Roc Fulton MD Three [facility] [address] [place], [place] [address] 01/02/2025 1:[address] [facility] [place] [address] Roc Fulton MD Three [facility] [address] [place], [place] [address] 01/05/2025 1:[address] [facility] [place] [address] Roc Fulton MD Three [address] [address] 01/07/2025 1:[address] [facility] [place] [address] Roc Fulton MD Three [address] [address]38[address] 01/09/2025 1:[address] [facility] [place] [address] Roc Fulton MD Three [facility] [address] [place], [place] [address] 01/12/2025 1:[address] [facility] [address] [place] [address] Roc Fulton MD [facility] [address] [place], [place] [address] 01/14/2025 1:[address] [facility] [address] [place] [address] Roc Fulton MD [facility] [address] [place] [address] 01/16/2025 1:[address] [facility] [place] [address] Roc Fulton MD [facility] [address] [place], [place] [address] 01/19/2025 1:[address] [facility] [place] [address] Roc Fulton MD [facility] [address] [place], [place] [address] 01/21/2025 1:[address] [facility] [address] [place] [address] Roc Fulton MD [facility] [address] [place] [address] 01/23/2025 1:[address] [facility] [place] [address] Roc Fulton MD [facility] [address] [place], [place] [address] 01/26/2025 1:[address] [facility] [address] [place] [address] Roc Fulton MD [facility] [address] [place], [place] [address] 01/28/2025 1:[address] [facility] [address] [place] [address] Roc Fulton MD [facility] [address] [place], [place] [address] 01/30/2025 1:[address] [facility] [address] [place] [address] Roc Fulton MD [facility] [address] [place], [place] [address] 02/02/2025 1:[address] [facility] [address] [place] [address] [address] [place] [address] Roc Fulton MD [facility] [address] [place] [address] 02/03/2025 11:00 AM CDT Office Visit [facility] - [facility] [address] [facility], [address] [place] [address] Nathan Lechuga MD 3 [place] [address] 02/04/2025 1:[address] [facility] [address] [place] [address] Roc Fulton MD Three [facility] [address] [place], [place] [address]69 02/06/2025 1:[address] [facility] [place] [address] Roc Fulton MD Three [facility] [address] [place], [place] [address] 02/09/2025 1:[address] [facility] [place] [address] Roc Fulton MD Three [facility] [address] [place] [address]239 02/11/2025 1:[address] [facility] [place] [address] Roc Fulton MD [facility] [address] [place], [place] [address]199 02/13/2025 1:[address] [facility] [place] [address] Roc Fulton MD Three [facility] [address] [place], [place] [address] 02/16/2025 1:[address] [facility] [place] [address] Roc Fulton MD [facility] [address] [place], [place] [address] 02/18/2025 1:[address] [facility] [address] [place] [place] [address] Roc Fulton MD [facility] [address] [place], [place] 299639 02/20/2025 1:[address] [facility] [address] [place] [address] Roc Fulton MD [facility] [address] [place], [place] 767539 02/25/2025 1:[address] [facility] [place] [address] Roc Fulton MD [facility] [address] [place], [place] [address] 02/27/2025 1:[address] [facility] [place] [address] Roc Fulton MD [facility] [address] [place], [place] [address] 03/02/2025 1:[address] [facility] [place] [address] Roc Fulton MD [facility] [address] [place], [place] [address] 03/04/2025 1:[address] [facility] [place] [address] Roc Fulton MD [facility] [address] [place], [place] [address]349 03/06/2025 1:[address] [facility] [address] [place] [address] [address] [place] [address] Roc Fulton MD [facility] [address] [place], [place] [address] 03/09/2025 1:[address] [facility] [address] [place] [address] [place] [address] Roc Fulton MD [facility] [address] [place], [place] [address] 03/18/2025 2:30 PM CDT Office Visit [facility] [address] [place], [place] [address] Roc Fulton MD [facility] [address] [place], [place] [address]05[address] 05/11/2025 2:40 PM PATIENT REGISTRATION REPRESENTATIVE Office Visit [facility] Diabetes and Endocrinology - [address] [address] Hannah Garrison MD [address] [place] [address] documented as of this encounter Goals Goal Patient Goal Type Associated Problems Recent Progress Patient-Stated? Author Patient will return to prior living situation and remain independent in ADLs upon discharge from hospital General No Diana Todd, field reviewer - family caregiver with be involved in care transitions and discharge planning General Nicole Guerra RN Safety Patient/family will have appropriate support at home upon discharge Ayleen Singh, ORGANIZATIONAL DEVELOPMENT DIRECTOR documented as of this encounter Procedures Procedure Name Priority Date/Time Associated Diagnosis Comments COMPREHENSIVE METABOLIC PANEL Routine 11/26/2024 LIPID PANEL Routine 11/26/2024 BASIC METABOLIC PANEL Routine 11/05/2024 BNP Routine 11/03/2024 CBC, MANUAL DIFF Routine 11/03/2024 THYROXINE, FREE (FT4) Routine 11/03/2024 THYROID STIM HORMONE TSH Routine 11/03/2024 IRON Routine 11/03/2024 FERRITIN Routine 11/03/2024 documented in this encounter Results * (ABNORMAL) COMPREHENSIVE METABOLIC PANEL (11/26/2024) SODIUM S/P/B 142 GLUCOSE 178 mg/dL BUN 34 CREATININE S/P/B 1.68(A) 0.7 - 1.3 CALCIUM S/P/B 8.7 POTASSIUM S/P/B 3.5 CHLORIDE S/P/B 105 GFR ESTIMATE 43 us Default History Genericprovider LABORATORY Edited Result - Final * LIPID PANEL (11/26/2024) CHOLESTEROL 129 TRIGLYCERIDES 75 HDL 48 LDL (CALCULATED) 65 NON HDL CHOLESTEROL 81 us Default History Genericprovider LABORATORY Edited Result - Final * (ABNORMAL) BASIC METABOLIC PANEL (11/05/2024) SODIUM S/P/B 140 POTASSIUM S/P/B 3.6 CO2 21 CHLORIDE S/P/B 109 GLUCOSE 114 mg/dL CALCIUM S/P/B 8.8 BUN 30 CREATININE S/P/B 1.84(A) 0.7 - 1.3 GFR ESTIMATE 36 11/05/2024 us Default History Genericprovider LABORATORY Final Result * IRON (11/03/2024) Pathologist [facility] IRON 23 50 - 180 11/03/2024 us Default History Genericprovider LABORATORY Final Result * FERRITIN (11/03/2024) Pathologist [facility] FERRITIN 184 24 - 380 11/03/2024 us Default History Genericprovider LABORATORY Final Result * CBC, MANUAL DIFF (11/03/2024) [facility] WBC 9.8 HGB 9.7 HCT 31.6 PLT 162 us Default History Genericprovider LABORATORY Final Result * THYROXINE, FREE (FT4) (11/03/2024) [facility] FREE T4 1.0 us Default History Genericprovider LABORATORY Final Result * THYROID STIM HORMONE TSH (11/03/2024) [facility] TSH 6.76 us Default History Genericprovider LABORATORY Final Result * BNP (11/03/2024) [facility] B TYPE NATRIURETIC PEPTIDE 383 us Default History Genericprovider LABORATORY Final Result documented in this encounter Visit Diagnoses Not on filedocumented in this encounter Additional Health Concerns Assessment Noted Time PHQ-9 Depression Total Score: 0 11/19/19 22 3:11 PM CDT documented as of this encounter Care Teams [employer] Gunsmith Relationship Specialty Start Date End Date Adrienne Marin MD [address] [place] [address] PCP - General INTERNAL MEDICINE 05/09/24 Gladys Sanchez MD [place] [employer] CARDIOVASCULAR DISEASE 05/28/19 documented as of this encounter
--- OUTSIDE RECORDS SUMMARY | 2024-12-23 19:49 | XMS_ITS | Encounter Summary ---
Author Organization [facility] Address [facility] [place] [address] Care Team Providers Care Bonded Structures Repairer Name Role Phone Adrian Lee MD Primary Care Provider [phone] Gladys Sanchez MD Unavailable [phone] Adrienne Marin MD Primary Care Provider [phone] Anna Landry RN Unavailable Unavailable Anna Landry RN Unavailable Unavailable Encounter Details Date Type Department Care Team (Late st Contact Info) Description 07/25/2022 Abstract [facility] BUSINESS OFFICE [address] [place] [id number] Abstract, Doc Cikda Social History Tobacco Use [...] Sex Assigned at Male 07/08/2024 7:30 AM STONE SPREADER OPERATOR Legal Sex Male 8:56 PM CDT Gender Identity Male 07/08/2024 7:30 AM STONE SPREADER OPERATOR Sexual Orientation Straight 07/08/2024 7: 30 AM STONE SPREADER OPERATOR COVID-19 Exposure Response Date Recorded In the last 10 days, have yo u been in contact with someone who was confirmed or suspected to have Coronavirus/COVID-19? No / Unsure 07/28/2022 2:26 PM STONE SPREADER OPERATOR documented as of this encounter Functional Status * RETIRED Are you deaf or do you have serious difficulty hearing Answer Date of Assessment Author Status Yes 06/14/2022 7:00 PM STONE SPREADER OPERATOR Activ e * RETIRED Are you blind or do you have serious difficulty seeing, even when wearing glasses? Answer Date of Assessment Author Status No 06/14/2022 7:00 PM STONE SPREADER OPERATOR Activ e * Do you have serious difficulty walking or climbing stairs? Answer Date of Assessment Author Status No 06/14/2022 7:00 PM STONE SPREADER OPERATOR Cathy Giles RN Active * Do you have difficulty dressing or bathing? Answer Date of Assessment Author Status No 06/14/2022 7:00 PM STONE SPREADER OPERATOR Cathy Giles RN Active * Because of a physical, mental, or emotional condition, do you have difficulty doing errands alone such as visiting a doctor's office or shopping? Answer Date of Assessment Author Status No 06/14/2022 7:00 PM STONE SPREADER OPERATOR Cathy Giles RN Active documented as of this encounter Mental Status * Because of a physical, mental, or emotional condition, do you have serious difficulty concentrating, remembering, or making decisions? Answer Entry Date Author Status No 06/14/2022 7:00 PM STONE SPREADER OPERATOR Cathy Giles RN Active documented in this encounter Plan of Treatment Upcoming Encounters Date Type Department Care Team (Late st Contact Info) Description 12/24/2024 1:30 PM CDT Appointment [facility] [address] [place] [address] [address] Roc Fulton MD [address] [place] [address] 12/29/2024 1:30 PM CDT Appointment [facility] [place] [address] Roc Fulton MD [facility] [address] [place] [address] 12/31/2024 1:30 PM CDT Appointment [facility] [address] [place] [address] Roc Fulton MD [facility] [address] [place], [place] [address] 01/02/2025 1:30 PM CDT Appointment [facility] [address] [place] [address] Roc Fulton MD Three [address] [id number] 01/05/2025 1:30 PM CDT Appointment [facility] [place] [address] Roc Fulton MD [facility]. [address] [address] 01/07/2025 1:30 PM CDT Appointment [facility] [address] Roc Fulton MD Three [address] 4[address] 01/09/2025 1:30 PM CDT Appointment [facility] [address] Roc Fulton MD Three [address] [address] 01/12/2025 1:30 PM CDT Appointment [facility] [address] Roc Fulton MD Three [facility] [address] [place], [place] [address] 01/14/2025 1:30 PM CDT Appointment [facility] [address] [place] [address] Roc Fulton MD [facility] [address] [place], [place] [address] 01/16/2025 1:30 PM CDT Appointment [facility] [address] [place] [address] Roc Fulton MD [facility] [address] [place] [address] 01/19/2025 1:30 PM CDT Appointment [facility] [address] [place] [address] Roc Fulton MD [facility] [address] [place], [place] [address] 01/21/2025 1:30 PM CDT Appointment [facility] [address] Roc Fulton MD [facility] [address] [place] [address] 01/23/2025 1:30 PM CDT Appointment [facility] [address] [place] [address] Roc Fulton MD [facility] [address] [place] [address] 01/26/2025 1:30 PM CDT Appointment [facility] [address] Roc Fulton MD [facility] [address] [place] [address] 01/28/2025 1:30 PM CDT Appointment [facility] [address] [facility] [address] [place] [address] Roc Fulton MD [facility] [address] [place] [address] 01/30/2025 1:30 PM CDT Appointment [facility] [place] [address] Roc Fulton MD [facility] [address] [place] [address] 02/02/2025 1:30 PM CDT Appointment [facility] [address] [place] [address] Roc Fulton MD [facility] [address] [place] [address] 02/03/2025 11:00 AM CDT Office Visit [facility] Multispecialty Care - [facility] 3 [facility], [address] [place] [address] Nathan Lechuga MD 3 [facility] [place] [address] 02/04/2025 1:30 PM CDT Appointment [facility] [address] [facility] [address] [place] [address] Roc Fulton MD [facility] [address] [place] [address] 02/06/2025 1:30 PM CDT Appointment [facility] [address] [place] [address] Roc Fulton MD [facility] [address] [place], [place] [address] 02/09/2025 1:30 PM CDT Appointment [facility] [address] [place] [address] Roc Fulton MD Three [facility] [address] [place], [place] [address] 02/11/2025 1:30 PM CDT Appointment [facility] [address] [place] [address] Roc Fulton MD Three [facility] [address] [place], [place] [address] 02/13/2025 1:30 PM CDT Appointment [facility] [place] [address] Roc Fulton MD [facility] [address] [place] [address] 02/16/2025 1:30 PM CDT Appointment [facility] [place] [address] Roc Fulton MD Three [facility] [address] [place], [place] [address] 02/18/2025 1:30 PM CDT Appointment [facility] [address] [place] [address] Roc Fulton MD [facility] [facility] [address] [place], [place] [address] 02/20/2025 1:30 PM CDT Appointment [facility] [address] [place] [address] Roc Fulton MD [facility] [address] [place], [place] [address] 02/25/2025 1:30 PM CDT Appointment [facility] [address] [place] [address] Roc Fulton MD [facility] [address] [place], [place] [address]12[address] 02/27/2025 1:30 PM CDT Appointment [facility] [place] [address] Roc Fulton MD [facility] [address] [place], [place] [address] 03/02/2025 1:30 PM CDT Appointment [facility] [place] [address] Roc Fulton MD [facility] [address] [place], [place] [address] 03/04/2025 1:30 PM CDT Appointment [facility] [place] [address] Roc Fulton MD [facility] [address] [place] [address] 03/06/2025 1:30 PM CDT Appointment [facility] [place] [address] Roc Fultno MD [facility] [address] [place], [place] [address] 03/09/2025 1:30 PM CDT Appointment [facility] [address] [facility] [place] [address] Roc Fulton MD [facility] [address] [place], [place] [address] 03/18/2025 2:30 PM CDT Office Visit [facility] [facility] [address] [place], [place] [address] Roc Fulton MD [facility] [address] [place], [place] [address] 05/11/2025 2:40 PM STONE SPREADER OPERATOR Office Visit [facility] Diabetes and Endocrinology - [address] [address] Hannah Garrison MD [address] [place] [address] documented as of this encounter Goals [...] home upon discharge General No Ayleen Garcia, BACK JOINER documented as of this encounter Visit Diagnoses Not on filedocumented in this encounter Additional Health Concerns Infection Onset Date Last Indicated Resolved Time COVID-19 Rule Out 05/13/2023 05/13/2023 05/13/2023 4:14 PM STONE SPREADER OPERATOR COVID-19 Rule Out 05/13/2023 05/13/2023 05/14/2023 1:35 AM STONE SPREADER OPERATOR COVID-19 Rule Out 07/08/2023 07/08/2023 07/08/2023 5:34 PM STONE SPREADER OPERATOR COVID-19 Rule Out 07/07/2024 07/07/2024 07/07/2024 7:39 AM STONE SPREADER OPERATOR Assessment Noted Time PHQ-9 Depression Total Score: 0 11/19/19 3:11 PM CDT documented as of this encounter Care Teams Bonded Structures Repairer Relationship Specialty Start Date End Date Adrian Lee MD [address] [place] [address] PCP - General FAMILY PRACTICE 04/22/18 05/08/24 Adrienne Marin MD [address] [place] [phone] PCP - General INTERNAL MEDICINE 05/09/24 Gladys Sanchez MD [address] [place] [address] [place] [employer] CARDIOVASCULAR DISEASE 05/28/19 Anna Landry, painter helper sign (Ambulatory) REGISTERED NURSE 10/29/24 11/02/24 Anna Landry painter helper sign (Ambulatory) REGISTERED NURSE 11/03/24 11/09/24 documented as of this encounter
--- OUTSIDE RECORDS SUMMARY | 2024-12-23 19:49 | XMS_ITS | Encounter Summary ---
Author Organization [facility] Address [facility] [place] [address] Care Team Providers Care Java Web Engineer Name Role Phone Adrian Lee MD Primary Care Provider [phone] Gladys Sanchez MD Unavailable [phone] Adrienne Marin MD Primary Care Provider [phone] Anna Landry RN Unavailable Unavailable Anna Landry RN Unavailable Unavailable Encounter Details Date Type Department Care Team (Late st Contact Info) Description 05/21/2023 Hospital Follow-up Call [facility] [address] [place] [address] Amanda Ohara RN Social History Tobacco Use Types Packs/Day Years Used Date Smoking Tobacco: Never Passive Smoke Exposure: Never Smokeless Tobacco: Never Comments:non-smoker Alcohol Use Standard Drinks/Week Comments No 0 (1 standard drink = 0.6 oz pur e alcohol) [facility] Utilities Answer Date Recorded In the past 12 months has e [employer], gas, oil, or water [employer] threatened to shut off services in your [...] in a intermediate (including now)? No 05/13/2023 Sex and Gender Information Value Date Recorded Sex Assigned at Male 07/08/2024 7:30 AM DEHYDRATOR OPERATOR Legal Sex Male 8:56 PM CDT Gender Identity Male 07/08/2024 7:30 AM DEHYDRATOR OPERATOR Sexual Orientation Straight 07/08/2024 7: 30 AM DEHYDRATOR OPERATOR documented as of this encounter Functional Status * Are you deaf or do you have serious difficulty hearing Answer Date of Assessment Author Status Yes 05/13/2023 9:00 PM Dary Fortune, RN Active * Are you blind or do you have serious difficulty seeing, even when wearing glasses? Answer Date of Assessment Author Status No 05/13/2023 9:00 PM Dary Fortune, RN Active * Do you have serious [...] Info) Description 12/24/2024 1:30 PM CDT Appointment [facility] [place] [address] Roc Fulton MD [address] [address] 12/29/2024 1:30 PM CDT Appointment [facility] [place] [address] Roc Fulton MD [address] [address] 12/31/2024 1:30 PM CDT Appointment [facility] [place] [address] Roc Fulton MD Three [facility]. [place] [address] [place], [place] [address] 01/02/2025 1:30 PM CDT Appointment [facility] [address] [place] [address] Roc Fulton MD Three [facility]. [place] [address] [place], [place] [address] 01/05/2025 1:30 PM CDT Appointment [facility] [address] [place] [address] Roc Fulton MD Three [facility]. [place] [address] [place], [place] [address] 01/07/2025 1:30 PM CDT Appointment [facility] [address] [place] [address] Roc Fulton MD Three [facility]. [facility] [address] [place], [place] [address] 01/09/2025 1:30 PM CDT Appointment [facility] [place] [address] Roc Fulton MD Three [facility]. [place] [address] [place], [place] [address] 01/12/2025 1:30 PM CDT Appointment [facility] [address] [place] [address] Roc Fulton MD Three [facility]. [place] [address] [place], [place] [address] 01/14/2025 1:30 PM CDT Appointment [facility] [address] [place] [address] Roc Fulton MD Three [facility]. [place] [address] [place], [place] [address] 01/16/2025 1:30 PM CDT Appointment [facility] [address] [place] [address] Roc Fulton MD Three [facility]. [place] [address] [place], [place] [address] 01/19/2025 1:30 PM CDT Appointment [facility] [address] [place] [address] [address] [place] [address] Roc Fulton MD Three [facility]. [facility] [address] [place], [place] [address] 01/21/2025 1:30 PM CDT Appointment [facility] [place] [address] Roc Fulton MD Three [facility]. [facility] [address] [place], [place] [address] 01/23/2025 1:30 PM CDT Appointment [facility] [place] [address] Roc Fulton MD Three [facility]. [facility] [address] [place], [place] [address] 01/26/2025 1:30 PM CDT Appointment [facility] [place] [address] Roc Fulton MD Three [facility]. [facility] [address] [place], [place] [address] 01/28/2025 1:30 PM CDT Appointment [facility] [address] [place] [address] Roc Fulton MD Three [facility]. [address] [address] 01/30/2025 1:30 PM CDT Appointment [facility] [address] [place] [address] Roc Fulton MD Three [facility]. [address] [address] 02/02/2025 1:30 PM CDT Appointment [facility] [address] [place] [address] Roc Fulton MD Three [facility]. [address] [address] 02/03/2025 11:00 AM CDT Office Visit [facility] Care - [facility] [address] [facility], [address] [place] [address] Nathan Lechuga MD [address] [place] [address] 02/04/2025 1:30 PM CDT Appointment [facility] [place] [address] Roc Fulton MD Three [address] [address] 02/06/2025 1:30 PM CDT Appointment [facility] [address] [place] [address] Roc Fulton MD Three [facility]. [place] [address] [place], [place] [address] 02/09/2025 1:30 PM CDT Appointment [facility] [address] [place] [address] Roc Fulton MD Three [facility]. [place] [address] [place], [place] [address] 02/11/2025 1:30 PM CDT Appointment [facility] [address] [place] [place] [address] Roc Fulton MD Three [facility]. [place] [address] [place], [place] [address] 02/13/2025 1:30 PM CDT Appointment [facility] [facility] [address] [place] [address] Roc Fulton MD Three [facility]. [facility] [address] [place], [place] [address] 02/16/2025 1:30 PM CDT Appointment [facility] [place] [address] Roc Fulton MD Three [facility]. [place] [address] [place], [place] [address] 02/18/2025 1:30 PM CDT Appointment [facility] [place] [address] Roc Fulton MD Three [facility]. [place] [address] [place], [place] [address] 02/20/2025 1:30 PM CDT Appointment [facility] [address] [place] [address] Roc Fulton MD Three [facility]. [facility] [address] [place], [place] [address] 02/25/2025 1:30 PM CDT Appointment [facility] [place] [address] Roc Fulton MD Three [facility]. [facility] [address] [place], [place] [address] 02/27/2025 1:30 PM CDT Appointment [facility] [place] [place] [address] Roc Fulton MD Three [facility] [address] [place], [place] [address] 03/02/2025 1:30 PM CDT Appointment [facility] [place] [address] Roc Fulton MD Three [address] [address] 03/04/2025 1:30 PM CDT Appointment [facility] [place] [address] Roc Fulton MD Three [facility] [address] [place], [place] [address] 03/06/2025 1:30 PM CDT Appointment [facility] [place] [address] Roc Fulton MD Three [facility] [address] [place], [place] [address] 03/09/2025 1:30 PM CDT Appointment [facility] [address] [place] [address] [place] [address] Roc Fulton MD Three [facility]. [facility] [address] [place], [place] [address] 03/18/2025 2:30 PM CDT Office Visit [facility] THREE [facility], [facility] [address] [place], [place] [address] Roc Fulton MD Three [facility]. [facility] [address] [place] [address] 05/11/2025 2:40 PM DEHYDRATOR OPERATOR Office Visit [facility] Diabetes and Endocrinology - [address] [address] Hannah Garrison MD [address] [place] [address] documented as of this encounter Goals Goal Patient Goal Type Associated Problems Recent Progress Patient-Stated? Author Patient will return to prior living situation and remain independent in ADLs upon discharge from hospital General No Diana Todd, cook frozen dessert - family caregiver with be involved in care transitions and discharge planning General No Nicole Cole RN Safety Patient/family will have appropriate support at home upon discharge General No Ayleen Garcia, SUPPORT STAFF documented as of this encounter Visit Diagnoses Not on filedocumented in this encounter Additional Health Concerns Infection Onset Date Last Indicated Resolved Time COVID-19 Rule Out 07/08/2023 07/08/2023 07/08/2023 5:34 PM DEHYDRATOR OPERATOR COVID-19 Rule Out 07/07/2024 07/07/2024 07/07/2024 7:39 AM DEHYDRATOR OPERATOR Assessment Noted Time PHQ-9 Depression Total Score: 0 11/19/19 3:11 PM CDT documented as of this encounter Care Teams Java Web Engineer Relationship Specialty Start Date End Date Adrian Lee MD [address] [place] [phone] PCP - General FAMILY PRACTICE 04/22/18 05/08/24 Adrienne Marin MD [address] [place] [address] PCP - General INTERNAL MEDICINE 05/09/24 Gladys Sanchez MD [address] [place] [address] [employer] Reactor Supervisor CARDIOVASCULAR DISEASE 05/28/19 Anna Landry, hull builder (Ambulatory) REGISTERED NURSE 10/29/24 11/02/24 Anna Landry hull builder (Ambulatory) REGISTERED NURSE 11/03/24 11/09/24 documented as of this encounter
[2024-12-23 19:53] VITALS: BP 168/92; PULSE 65; RESP 14; TEMP 36.7; O2SAT 97
--- OUTSIDE RECORDS SUMMARY | 2024-12-23 20:17 | XMS_ITS | Encounter Summary ---
Author Organization [facility] Address [facility] [place] [address] Care Team Providers Care Openstack Developer Name Role Phone Adrian Lee MD Primary Care Provider [phone] Gladys Sanchez MD Unavailable [phone] Adrienne Marin MD Primary Care Provider [phone] Anna Landry RN Unavailable Unavailable Anna Landry RN Unavailable Unavailable Encounter Details Date Type Department Care Team (Late st Contact Info) Description 07/25/2022 Abstract [facility] BUSINESS OFFICE [address] [place] [address] Abstract, Doc Cikda Social History Tobacco Use [...] Sex Assigned at Male 07/08/2024 7:30 AM GRADES 9 THRU 12 VISITING TEACHER Legal Sex Male 8:56 PM CDT Gender Identity Male 07/08/2024 7:30 AM GRADES 9 THRU 12 VISITING TEACHER Sexual Orientation Straight 07/08/2024 7: 30 AM GRADES 9 THRU 12 VISITING TEACHER COVID-19 Exposure Response Date Recorded In the last 10 days, have yo u been in contact with someone who was confirmed or suspected to have Coronavirus/COVID-19? No / Unsure 07/28/2022 2:26 PM GRADES 9 THRU 12 VISITING TEACHER documented as of this encounter Functional Status * RETIRED Are you deaf or do you have serious difficulty hearing Answer Date of Assessment Author Status Yes 06/14/2022 7:00 PM GRADES 9 THRU 12 VISITING TEACHER Activ e * RETIRED Are you blind or do you have serious difficulty seeing, even when wearing glasses? Answer Date of Assessment Author Status No 06/14/2022 7:00 PM GRADES 9 THRU 12 VISITING TEACHER Activ e * Do you have serious difficulty walking or climbing stairs? Answer Date of Assessment Author Status No 06/14/2022 7:00 PM GRADES 9 THRU 12 VISITING TEACHER Cathy Giles RN Active * Do you have difficulty dressing or bathing? Answer Date of Assessment Author Status No 06/14/2022 7:00 PM GRADES 9 THRU 12 VISITING TEACHER Cathy Giles RN Active * Because of a physical, mental, or emotional condition, do you have difficulty doing errands alone such as visiting a doctor's office or shopping? Answer Date of Assessment Author Status No 06/14/2022 7:00 PM GRADES 9 THRU 12 VISITING TEACHER Cathy Giles RN Active documented as of this encounter Mental Status * Because of a physical, mental, or emotional condition, do you have serious difficulty concentrating, remembering, or making decisions? Answer Entry Date Author Status No 06/14/2022 7:00 PM GRADES 9 THRU 12 VISITING TEACHER Cathy Giles RN Active documented in this encounter Plan of Treatment Upcoming Encounters Date Type Department Care Team (Late st Contact Info) Description 12/24/2024 1:30 PM CDT Appointment [facility] [address] [place], [place] [address] [address] Roc Fulton MD [address] [place] [address] 12/29/2024 1:30 PM CDT Appointment [facility] [place] [address] Roc Fulton MD [facility]. [facility] [address] [place] [address] 12/31/2024 1:30 PM CDT Appointment [facility] [address] [place] [address] Roc Fulton MD Three [facility]. [facility] [address] [place], [place] [address] 01/02/2025 1:30 PM CDT Appointment [facility] [address] [place] [address] Roc Fulton MD Three [address] [id number] 01/05/2025 1:30 PM CDT Appointment [facility] [place] [address] Roc Fulton MD Three [facility]. [address] [address] 01/07/2025 1:30 PM CDT Appointment [facility] [place] [address] Roc Fulton MD Three [address] [address] 01/09/2025 1:30 PM CDT Appointment [facility] [place] [address] Roc Fulton MD Three [address] [address] 01/12/2025 1:30 PM CDT Appointment [facility] [place] [address] Roc Fulton MD Three [facility] [address] [place], [place] [address] 01/14/2025 1:30 PM CDT Appointment [facility] [address] [place] [address] Roc Fulton MD Three [facility]. [facility] [address] [place], [place] [address] 01/16/2025 1:30 PM CDT Appointment [facility] [address] [place] [address] Roc Fulton MD Three [facility]. [facility] [address] [place] [address] 01/19/2025 1:30 PM CDT Appointment [facility] [address] [place] [address] Roc Fulton MD Three [facility]. [facility] [address] [place], [place] [address] 01/21/2025 1:30 PM CDT Appointment [facility] [place] [address] Roc Fulton MD Three [facility]. [facility] [address] [place] [address] 01/23/2025 1:30 PM CDT Appointment [facility] [address] [place] [address] Roc Fulton MD Three [facility]. [facility] [address] [place] [address] 01/26/2025 1:30 PM CDT Appointment [facility] [place] [address] Roc Fulton MD Three [facility]. [facility] [address] [place] [address] 01/28/2025 1:30 PM CDT Appointment [facility] [address] [facility] [place] [place] [address] Roc Fulton MD Three [facility]. [place] [address] [place] [address] 01/30/2025 1:30 PM CDT Appointment [facility] [facility] [place] [address] Roc Fulton MD Three [facility]. [facility] [address] [place] [address] 02/02/2025 1:30 PM CDT Appointment [facility] [facility] [address] [place] [place] [address] Roc Fulton MD Three [facility]. [facility] [address] [place] [address] 02/03/2025 11:00 AM CDT Office Visit [facility] Multispecialty Care - [facility] 3 [facility], [address] [place] [address] Nathan Lechuga MD 3 [facility] [place] [address] 02/04/2025 1:30 PM CDT Appointment [facility] [address] [place] [place] [address] Roc Fulton MD Three [facility]. [facility] [address] [place] [address] 02/06/2025 1:30 PM CDT Appointment [facility] [address] [place] [address] Roc Fulton MD Three [facility]. [place] [address] [place], [place] [address] 02/09/2025 1:30 PM CDT Appointment [facility] [address] [place] [address] Roc Fulton MD Three [facility] [address] [place], [place] [address] 02/11/2025 1:30 PM CDT Appointment [facility] [address] [place] [address] Roc Fulton MD Three [facility] [address] [place], [place] [address] 02/13/2025 1:30 PM CDT Appointment [facility] [place] [address] Roc Fulton MD [facility] [address] [place] [address] 02/16/2025 1:30 PM CDT Appointment [facility] [place] [address] Roc Fulton MD Three [facility] [address] [place], [place] [address] 02/18/2025 1:30 PM CDT Appointment [facility] [address] [place] [address] Roc Fulton MD [facility] [address] [facility] [address] [place], [place] [address] 02/20/2025 1:30 PM CDT Appointment [facility] [address] [place] [address] Roc Fulton MD Three [facility]. [facility] [address] [place], [place] [address] 02/25/2025 1:30 PM CDT Appointment [facility] [address] [place] [address] Roc Fulton MD Three [facility]. [facility] [address] [place], [place] [address] 02/27/2025 1:30 PM CDT Appointment [facility] [place] [address] Roc Fulton MD Three [facility]. [facility] [address] [place], [place] [address] 03/02/2025 1:30 PM CDT Appointment [facility] [place] [address] Roc Fulton MD Three [facility]. [facility] [address] [place], [place] [address] 03/04/2025 1:30 PM CDT Appointment [facility] [place] [address] Roc Fulton MD Three [facility]. [facility] [address] [place] [address] 03/06/2025 1:30 PM CDT Appointment [facility] [place] [address] Roc Fulton MD Three [facility]. [place] [address] [place], [place] [address] 03/09/2025 1:30 PM CDT Appointment [facility] [address] [place] [address] Roc Fulton MD Three [facility]. [place] [address] [place], [place] [address] 03/18/2025 2:30 PM CDT Office Visit [facility] THREE [facility], [place] [address] [place], [place] [address] Roc Fulton MD Three [facility]. [facility] [address] [place], [place] [address] 05/11/2025 2:40 PM GRADES 9 THRU 12 VISITING TEACHER Office Visit [facility] Diabetes and Endocrinology - [address] [address] Hannah Garrison MD [address] [place] [address] documented as of this encounter Goals [...] home upon discharge General No Ayleen Garcia, YACHT MASTER documented as of this encounter Visit Diagnoses Not on filedocumented in this encounter Additional Health Concerns Infection Onset Date Last Indicated Resolved Time COVID-19 Rule Out 05/13/2023 05/13/2023 05/13/2023 4:14 PM GRADES 9 THRU 12 VISITING TEACHER COVID-19 Rule Out 05/13/2023 05/13/2023 05/14/2023 1:35 AM GRADES 9 THRU 12 VISITING TEACHER COVID-19 Rule Out 07/08/2023 07/08/2023 07/08/2023 5:34 PM GRADES 9 THRU 12 VISITING TEACHER COVID-19 Rule Out 07/07/2024 07/07/2024 07/07/2024 7:39 AM GRADES 9 THRU 12 VISITING TEACHER Assessment Noted Time PHQ-9 Depression Total Score: 0 11/19/19 3:11 PM CDT documented as of this encounter Care Teams Openstack Developer Relationship Specialty Start Date End Date Adrian Lee MD [address] [place] [address] PCP - General FAMILY PRACTICE 04/22/18 05/08/24 Adrienne Marin MD [address] [place] [phone] PCP - General INTERNAL MEDICINE 05/09/24 Gladys Sanchez MD [address] [place] [phone] [place] Data Services Developer CARDIOVASCULAR DISEASE 05/28/19 Anna Landry, utilization review specialist (Ambulatory) REGISTERED NURSE 10/29/24 11/02/24 Anna Landry utilization review specialist (Ambulatory) REGISTERED NURSE 11/03/24 11/09/24 documented as of this encounter
--- OUTSIDE RECORDS SUMMARY | 2024-12-23 20:17 | XMS_ITS | Encounter Summary ---
Author Organization [facility] Address [facility] [place] [address] Care Team Providers Care Netezza Architect Name Role Phone Adrian Lee MD Primary Care Provider [phone] Gladys Sanchez MD Unavailable [phone] Adrienne Marin MD Primary Care Provider [phone] Anna Landry RN Unavailable Unavailable Anna Landry RN Unavailable Unavailable Encounter Details Date Type Department Care Team (Late st Contact Info) Description 06/20/2022 Hospital Follow-up Call [facility] Cardiac Rehab [address] [place] [address] Asia Weiner RN Social History [...] Sex Assigned at Male 07/08/2024 7:30 AM CYBER INSTRUCTOR Legal Sex Male 8:56 PM CDT Gender Identity Male 07/08/2024 7:30 AM CYBER INSTRUCTOR Sexual Orientation Straight 07/08/2024 7: 30 AM CYBER INSTRUCTOR COVID-19 Exposure Response Date Recorded In the last 10 days, have yo u been in contact with someone who was confirmed or suspected to have Coronavirus/COVID-19? No / Unsure 06/14/2022 6:51 PM CYBER INSTRUCTOR documented as of this encounter Functional Status * RETIRED Are you deaf or do you have serious difficulty hearing Answer Date of Assessment Author Status Yes 06/14/2022 7:00 PM CYBER INSTRUCTOR Activ e * RETIRED Are you blind or do you have serious difficulty seeing, even when wearing glasses? Answer Date of Assessment Author Status No 06/14/2022 7:00 PM CYBER INSTRUCTOR Activ e * Do you have serious difficulty walking or climbing stairs? Answer Date of Assessment Author Status No 06/14/2022 7:00 PM CYBER INSTRUCTOR Cathy Giles RN Active * Do you have difficulty dressing or bathing? Answer Date of Assessment Author Status No 06/14/2022 7:00 PM Cathy Osuna RN Active * Because of a physical, mental, or emotional condition, do you have difficulty doing errands alone such as visiting a doctor's office or shopping? Answer Date of Assessment Author Status No 06/14/2022 7:00 PM CYBER INSTRUCTOR Cathy Giles RN Active documented as of [...] Info) Description 12/24/2024 1:30 PM CDT Appointment [facility] [address] [place] [address] Roc Fulton MD [facility] [address] [place], [place] [address] 12/29/2024 1:30 PM CDT Appointment [facility] [address] [place] [address] Roc Fulton MD [facility] [address] [place], [place] [address] 12/31/2024 1:30 PM CDT Appointment [facility] [address] [place] [address] Roc Fluton MD Three [facility] [address] [place], [place] [address] 01/02/2025 1:30 PM CDT Appointment [facility] [address] [place] [address] Roc Fulton MD Three [facility]. [facility] [address] [place] [address] 01/05/2025 1:30 PM CDT Appointment [facility] [address] [place] [address] Roc Fulton MD Three [facility]. [facility] [address] [place], [place] [address] 01/07/2025 1:30 PM CDT Appointment [facility] [address] [place] [address] Roc Fulton MD Three [facility]. [facility] [address] [place] [address] 01/09/2025 1:30 PM CDT Appointment [facility] [address] [place] [address] Roc Fulton MD Three [facility]. [facility] [address] [place] [address] 01/12/2025 1:30 PM CDT Appointment [facility] [address] [place] [address] Roc Fulton MD Three [facility]. [place] [address] [place], [place] [address] 01/14/2025 1:30 PM CDT Appointment [facility] [address] [place], [place] [address] [place], [place] [address] Roc Fulton MD Three [facility]. [place] [address] [place], [place] [address] 01/16/2025 1:30 PM CDT Appointment [facility] [address] [place] [address] [place] [address] Roc Fulton MD Three [facility]. [facility] [address] [place], [place] [address] 01/19/2025 1:30 PM CDT Appointment [facility] [address] [place] [address] [address] [place] [address] Roc Fulton MD Three [facility]. [facility] [address] [place], [place] [address] 01/21/2025 1:30 PM CDT Appointment [facility] [address] [place] [address] [place] [address] Roc Fulton MD Three [facility]. [facility] [address] [place], [place] [address] 01/23/2025 1:30 PM CDT Appointment [facility] [address] [place] [address] [place] [address] Roc Fulton MD Three [facility]. [facility] [address] [place], [place] [address] 01/26/2025 1:30 PM CDT Appointment [facility] [address] [place] [address] Roc Fulton MD Three [facility]. [facility] [address] [place], [place] [address] 01/28/2025 1:30 PM CDT Appointment [facility] [address] [place] [address] Roc Fulton MD Three [facility]. [facility] [address] [place], [place] [address] 01/30/2025 1:30 PM CDT Appointment [facility] [address] [place] [address] Roc Fulton MD Three [facility]. [facility] [address] [place] [address] 02/02/2025 1:30 PM CDT Appointment [facility] [address] [place] [address] Roc Fulton MD Three [facility]. [place] [address] [place] [address] 02/03/2025 11:00 AM CDT Office Visit [facility] Medical Group Multispecialty Care - [facility] [address] [facility], [address] [place] [address] Nathan Lechuga MD [address] [place] [address] 02/04/2025 1:30 PM CDT Appointment [facility] [address] [place] [address] Roc Fulton MD Three [facility]. [facility] [address] [place], [place] [address] 02/06/2025 1:30 PM CDT Appointment [facility] [address] [place] [address] Roc Fulton MD Three [facility]. [facility] [address] [place], [place] [address]89 02/09/2025 1:30 PM CDT Appointment [facility] [address] [place] [address] Roc Fulton MD Three [facility]. [facility] [address] [place], [place] [address]339 02/11/2025 1:30 PM CDT Appointment [facility] [address] [place] [address] Roc Fulton MD Three [facility]. [facility] [address] [place], [place] [address] 02/13/2025 1:30 PM CDT Appointment [facility] [place] [address] Roc Fulton MD Three [facility]. [facility] [address] [place], [place] [address] 02/16/2025 1:30 PM CDT Appointment [facility] [address] [place] [address] Roc Fulton MD Three [facility] [address] [place], [place] [address] 02/18/2025 1:30 PM CDT Appointment [facility] [address] [place] [address] Roc Fulton MD Three [facility]. [place] [address] [place], [place] [address]59 02/20/2025 1:30 PM CDT Appointment [facility] [address] [place] [address] Roc Fulton MD Three [facility]. [place] [address] [place], [place] [address] 02/25/2025 1:30 PM CDT Appointment [facility] [place] [address] Roc Fulton MD Three [facility]. [facility] [address] [place], [place] [address] 02/27/2025 1:30 PM CDT Appointment [facility] [place] [address] Roc Fulton MD Three [facility] [address] [place], [place] [address] 03/02/2025 1:30 PM CDT Appointment [facility] [place] [address] Roc Fulton MD Three [facility]. [facility] [address] [place], [place] [address] 03/04/2025 1:30 PM CDT Appointment [facility] [place] [address] Roc Fulton MD Three [facility] [address] [place], [place] [address] 03/06/2025 1:30 PM CDT Appointment [facility] [address] [place] [address] [place] [address] Roc Fulton MD [facility]. [place] [address] [place], [place] [address] 03/09/2025 1:30 PM CDT Appointment [facility] [address] [place] [address] [place] [address] Roc Fulton MD [facility]. [place] [address] [place], [place] [address] 03/18/2025 2:30 PM CDT [facility] [place] [address] [place], [place] [address] Roc Fulton MD [facility]. [place] [address] [place], [place] [address] 05/11/2025 2:40 PM CYBER INSTRUCTOR Office Visit [facility] Medical Group Diabetes and Endocrinology - [address] [address] Hannah Garrison MD [address] [place] [address] documented as of this encounter Goals Goal Patient Goal Type Associated Problems Recent Progress Patient-Stated? Author Patient will return to prior living situation and remain independent in ADLs upon discharge from hospital General No Diana Todd, architectural job captain - family caregiver with be involved in care transitions and discharge planning General No Nicole Cole RN Safety Patient/family will have appropriate support at home upon discharge General No Ayleen Garcia, CONSULTING HR PROFESSIONAL documented as of this encounter Visit Diagnoses Not on filedocumented in this encounter Additional Health Concerns Infection Onset Date Last Indicated Resolved Time Influenza - Seasonal 05/23/2022 05/23/2022 023 12:34 AM CYBER INSTRUCTOR COVID-19 Rule Out 05/13/2023 05/13/2023 05/13/2023 4:14 PM CYBER INSTRUCTOR COVID-19 Rule Out 05/13/2023 05/13/2023 05/14/2023 1:35 AM CYBER INSTRUCTOR COVID-19 Rule Out 07/08/2023 07/08/2023 07/08/2023 5:34 PM CYBER INSTRUCTOR COVID-19 Rule Out 07/07/2024 07/07/2024 07/07/2024 7:39 AM CYBER INSTRUCTOR Assessment Noted Time PHQ-9 Depression Total Score: 0 11/19/19 3:11 PM CDT documented as of this encounter Care Teams Netezza Architect Relationship Specialty Start Date End Date Adrian Lee MD [address] [place] [place] [address] PCP - General FAMILY PRACTICE 04/22/18 05/08/24 Adrienne Marin MD [address] [place] [address] PCP - General INTERNAL MEDICINE 05/09/24 Gladys Sanchez MD [address] [place] [address] [employer]chanical CARDIOVASCULAR DISEASE 05/28/19 Anna Landry planting machine operator (Ambulatory) REGISTERED NURSE 10/29/24 11/02/24 Anna Landry RN Care Manager (Ambulatory) REGISTERED NURSE 11/03/24 11/09/24 documented as of this encounter
--- OUTSIDE RECORDS SUMMARY | 2024-12-23 20:18 | XMS_ITS | Encounter Summary ---
Author Organization [facility] Address [address] [place] [address] Care Team Providers Care Maintenance Worker Swimming Pool Name Role Phone Pee Lafleur MD Unavailable Unavailable Adrian Lee MD Primary Care Provider [phone] Gladys Sanchez MD Unavailable [phone] Adrienne Marin MD Primary Care Provider [phone] Anna Landry RN Unavailable Unavailable Anna Landry RN Unavailable Unavailable Encounter Details Date Type Department Care Team (Late st Contact Info) Description 11/30/2018 Abstract [facility] CONVERSION [address] [place] [address] , Generic Conversion, Social History Tobacco Use Types Packs/Day Years Used Date Smoking Tobacco: Never Smokeless Tobacco: Never Sex and Gender Information Value Date Recorded Sex Assigned at Male 07/08/2024 7:30 AM INCUBATOR OPERATOR Legal Sex Male 8:56 PM CDT Gender Identity Male 07/08/2024 7:30 AM INCUBATOR OPERATOR Sexual Orientation Straight 07/08/2024 7: 30 AM INCUBATOR OPERATOR documented as of this encounter Plan of Treatment Upcoming Encounters Date Type Department Care Team (Late st Contact Info) Description 12/24/2024 1:30 PM CDT Appointment Cardiopulmonary Rehab [address] [place] [address] Roc Fulton MD [address] [address] 12/29/2024 1:30 PM CDT Appointment [facility] [address] [place] [address] Roc Fulton MD Three [facility]. [facility] [address] [place], [place] [address] 12/31/2024 1:30 PM CDT Appointment [facility] [address] [place] [address] Roc Fulton MD Three [facility] [address] [place], [place] [address] 01/02/2025 1:30 PM CDT Appointment [facility] [place] [address] Roc Fulton MD Three [facility] [address] [place], [place] [address] 01/05/2025 1:30 PM CDT Appointment [facility] [place] [address] Roc Fulton MD Three [address] [address] 01/07/2025 1:30 PM CDT Appointment [facility] [place] [address] Roc Fulton MD Three [address] [address] 01/09/2025 1:30 PM CDT Appointment [facility] [place] [address] Roc Fulton MD Three [facility] [address] [place], [place] [address] 01/12/2025 1:30 PM CDT Appointment [facility] [address] [place] [address] Roc Fulton MD Three [facility]. [facility] [address] [place], [place] [address] 01/14/2025 1:30 PM CDT Appointment [facility] [address] [place] [address] Roc Fulton MD Three [facility]. [facility] [address] [place] [address] 01/16/2025 1:30 PM CDT Appointment [facility] [place] [address] Roc Fulton MD Three [facility]. [facility] [address] [place], [place] [address] 01/19/2025 1:30 PM CDT Appointment [facility] [place] [address] Roc Fulton MD Three [facility]. [facility] [address] [place], [place] [address] 01/21/2025 1:30 PM CDT Appointment [facility] [address] [place] [address] Roc Fulton MD Three [facility]. [facility] [address] [place] [address] 01/23/2025 1:30 PM CDT Appointment [facility] [place] [address] Roc Fulton MD Three [facility]. [facility] [address] [place], [place] [address] 01/26/2025 1:30 PM CDT Appointment [facility] [address] [place] [address] Roc Fulton MD Three [facility]. [place] [address] [place], [place] [address] 01/28/2025 1:30 PM CDT Appointment [facility] [address] [facility] [place] [address] Roc Fulton MD Three [facility]. [facility] [address] [place], [place] [address] 01/30/2025 1:30 PM CDT Appointment [facility] [address] [facility] [place] [address] [place] [address] Roc Fulton MD Three [facility]. [facility] [address] [place], [place] [address] 02/02/2025 1:30 PM CDT Appointment [facility] [address] [place] [address] [address] [place] [address] Roc Fulton MD Three [facility]. [facility] [address] [place] [address] 02/03/2025 11:00 AM CDT Office Visit [facility] Medical Group Multispecialty Care - [facility] 3 [facility], [address] [place] [address] Nathan Lechuga MD 3 [facility] [place] [address] 02/04/2025 1:30 PM CDT Appointment [facility] [address] [place] [address] Roc Fulton MD Three [facility] [address] [place], [place] [address] 02/06/2025 1:30 PM CDT Appointment [facility] [place] [address] Roc Fulton MD Three [facility] [address] [place], [place] [address] 02/09/2025 1:30 PM CDT Appointment [facility] [place] [address] Roc Fulton MD Three [facility] [address] [place], [place] [address] 02/11/2025 1:30 PM CDT Appointment [facility] [place] [address] Roc Fulton MD [facility] [address] [place], [place] [address] 02/13/2025 1:30 PM CDT Appointment [facility] [place] [address] Roc Fulton MD Three [facility] [address] [place], [place] [address] 02/16/2025 1:30 PM CDT Appointment [facility] [place] [address] Roc Fulton MD [facility] [address] [place], [place] [address] 02/18/2025 1:30 PM CDT Appointment [facility] [address] [place] [address] Roc Fulton MD Three [facility]. [facility] [address] [place], [place] [address] 02/20/2025 1:30 PM CDT Appointment [facility] [address] [place] [address] Roc Fulton MD Three [facility]. [facility] [address] [place], [place] [address] 02/25/2025 1:30 PM CDT Appointment [facility] [place] [address] Roc Fulton MD Three [facility]. [facility] [address] [place], [place] [address] 02/27/2025 1:30 PM CDT Appointment [facility] [place] [address] Roc Fulton MD Three [facility]. [facility] [address] [place], [place] [address] 03/02/2025 1:30 PM CDT Appointment [facility] [place] [address] Roc Fulton MD Three [facility]. [facility] [address] [place], [place] [address] 03/04/2025 1:30 PM CDT Appointment [facility] [place] [address] Roc Fulton MD Three [facility]. [facility] [address] [place], [place] [address] 03/06/2025 1:30 PM CDT Appointment [facility] [address] [place] [address] [address] [place] [address] Roc Fulton MD Three [facility]. [place] [address] [place], [place] [address] 03/09/2025 1:30 PM CDT Appointment [facility] [address] [place] [address] [place] [address] Roc Fulton MD [facility]. [facility] [address] [place], [place] [address] 03/18/2025 2:30 PM CDT Office Visit [facility] THREE [facility], [facility] [address] [place], [place] [address] Roc Fulton MD [facility]. [facility] [address] [place], [place] [address] 05/11/2025 2:40 PM INCUBATOR OPERATOR Office Visit [facility] Medical Group Diabetes and Endocrinology - [address] [address] Hannah Garrison MD [address] [place] [address] documented as of this encounter Visit Diagnoses Not on filedocumented in this encounter Additional Health Concerns Infection Onset Date Last Indicated Resolved Time COVID-19 Rule Out 07/19/2021 07/19/2021 07/19/2021 9:17 PM INCUBATOR OPERATOR COVID-19 Rule Out 07/19/2021 07/19/2021 07/20/2021 7:01 PM INCUBATOR OPERATOR COVID-19 Rule Out 08/18/2021 08/18/2021 08/18/2021 12:03 PM INCUBATOR OPERATOR COVID-19 Confirmed 08/18/2021 08/18/2021 12:32 AM CDT COVID-19 Rule Out 09/13/2021 09/13/2021 09/13/2021 5:00 AM CDT COVID-19 Rule Out 05/23/2022 05/23/2022 05/23/2022 3:38 PM INCUBATOR OPERATOR Influenza - Seasonal 05/23/2022 05/23/2022 023 12:34 AM INCUBATOR OPERATOR COVID-19 Rule Out 05/13/2023 05/13/2023 05/13/2023 4:14 PM INCUBATOR OPERATOR COVID-19 Rule Out 05/13/2023 05/13/2023 05/14/2023 1:35 AM INCUBATOR OPERATOR COVID-19 Rule Out 07/08/2023 07/08/2023 07/08/2023 5:34 PM INCUBATOR OPERATOR COVID-19 Rule Out 07/07/2024 07/07/2024 07/07/2024 7:39 AM INCUBATOR OPERATOR documented as of this encounter Care Teams Maintenance Worker Swimming Pool Relationship Specialty Start Date End Date Adrian Lee MD [address] [place] [phone] PCP - General FAMILY PRACTICE 04/22/18 05/08/24 Adrienne Marin MD [address] [place] [address] PCP - General INTERNAL MEDICINE 05/09/24 Pee Lafleur MD [employer] Architect CARDIOVASCULAR DISEASE 11/02/17 05/27/19 Gladys Sanchez MD [address] [place] [phone] [employer] Architect CARDIOVASCULAR DISEASE 05/28/19 Anna Landry, bending frame operator (Ambulatory) REGISTERED NURSE 10/29/24 11/02/24 Anna Landry bending frame operator (Ambulatory) REGISTERED NURSE 11/03/24 11/09/24 documented as of this encounter
--- OUTSIDE RECORDS SUMMARY | 2024-12-23 20:18 | XMS_ITS | Encounter Summary ---
Author Organization [facility] Address [address] [place] [address] Care Team Providers Care Shaker Repairer Name Role Phone Gladys Sanchez MD Unavailable [phone] Adrienne Marin MD Primary Care Provider [phone] Encounter Details Date Type Department Care Team (Late st Contact Info) Description 11/13/2024 Abstract [facility] [address] Joya Vera MA Social History Tobacco Use Types Packs/Day Years Used Date Smoking Tobacco: Never Passive Smoke Exposure: Never Smokeless Tobacco: Never Comments:non-smoker Alcohol Use Standard Drinks/Week Comments No 0 (1 standard drink = 0.6 oz pur e alcohol) [facility] Utilities Answer Date Recorded In the past 12 months has [employer], gas, oil, or water [employer] threatened to shut off services in your [...] a skilled nursing (including now)? No 05/13/2023 Housing Stability Vital [...] were you homeless or living in a skilled nursing (including now)? No 10/26/2024 Sex and Gender Information Value Date Recorded Sex Assigned at Male 07/08/2024 7:30 AM SALES OPERATIONS ANALYST Legal Sex Male 8:56 PM CDT Gender Identity Male 07/08/2024 7:30 AM SALES OPERATIONS ANALYST Sexual Orientation Straight 07/08/2024 7: 30 AM SALES OPERATIONS ANALYST documented as of this encounter Functional Status [...] Author Status No 10/26/2024 11:48 AM CDT Jarert Masters RN Active * Because of a [...] Info) Description 12/24/2024 1:30 PM CDT Appointment [facility] [address] [place] [address] Roc Fulton MD [facility] [address] [place] [address] 12/29/2024 1:30 PM CDT Appointment [facility] [address] [place] [address] Roc Fulton MD Three [facility]. [facility] [address] [place], [place] [address] 12/31/2024 1:30 PM CDT Appointment [facility] [address] [place] [address] Roc Fulton MD Three [facility] [address] [place], [place] [address] 01/02/2025 1:30 PM CDT Appointment [facility] [address] [place] [address] Roc Fulton MD Three [facility] [address] [place], [place] [address] 01/05/2025 1:30 PM CDT Appointment [facility] [place] [address] Roc Fulton MD Three [address] 7[address]59 01/07/2025 1:30 PM CDT Appointment [facility] [place] [address] Roc Fulton MD Three [address] [address]32[address] 01/09/2025 1:30 PM CDT Appointment [facility] [place] [address] Roc Fulton MD Three [facility] [address] [place], [place] [address] 01/12/2025 1:30 PM CDT Appointment [facility] [address] [place] [address] Roc Fulton MD Three [facility]. [facility] [address] [place], [place] 3[address] 01/14/2025 1:30 PM CDT Appointment [facility] [address] [place] [address] Roc Fulton MD Three [facility]. [facility] [address] [place] [address] 01/16/2025 1:30 PM CDT Appointment [facility] [place] [address] Roc Fulton MD Three [facility]. [facility] [address] [place], [place] [address] 01/19/2025 1:30 PM CDT Appointment [facility] [place] [address] Roc Fulton MD Three [facility]. [facility] [address] [place], [place] [address] 01/21/2025 1:30 PM CDT Appointment [facility] [address] [place] [address] Roc Fulton MD Three [facility]. [facility] [address] [place] [address] 01/23/2025 1:30 PM CDT Appointment [facility] [place] [address] Roc Fulton MD Three [facility]. [facility] [address] [place], [place] 3723[address] 01/26/2025 1:30 PM CDT Appointment [facility] [address] [place] [address] Roc Fulton MD Three [facility]. [facility] [address] [place], [place] [address] 01/28/2025 1:30 PM CDT Appointment [facility] [address] [place] [address] Roc Fulton MD Three [facility]. [facility] [address] [place], [place] [address] 01/30/2025 1:30 PM CDT Appointment [facility] [address] [place] [address] Roc Fulton MD Three [facility]. [facility] [address] [place], [place] [address] 02/02/2025 1:30 PM CDT Appointment [facility] [address] [place] [address] [address] [place] [address] Roc Fulton MD Three [facility]. [facility] [address] [place] [address] 02/03/2025 11:00 AM CDT Office Visit [facility] Multispecialty Care - [facility] [address] [facility], [address] [place] [address] Nathan Lechuga MD 3 [facility] [place] [address] 02/04/2025 1:30 PM CDT Appointment [facility] [address] [place] [address] Roc Fulton MD Three [facility] [address] [place], [place] [address] 02/06/2025 1:30 PM CDT Appointment [facility] [place] [address] Roc Fulton MD Three [facility] [address] [place], [place] [address] 02/09/2025 1:30 PM CDT Appointment [facility] [place] [address] Roc Fulton MD Three [facility] [address] [place], [place] [address] 02/11/2025 1:30 PM CDT Appointment [facility] [place] [address] Roc Fulton MD [facility] [address] [place], [place] [address]859 02/13/2025 1:30 PM CDT Appointment [facility] [place] [address] Roc Fulton MD Three [facility] [address] [place], [place] [address] 02/16/2025 1:30 PM CDT Appointment [facility] [place] [address] [facility] [address] [place], [place] [address] 02/18/2025 1:30 PM CDT Appointment [facility] [address] [place] [address] Roc Fulton MD Three [facility]. [facility] [address] [place], [place] [address] 02/20/2025 1:30 PM CDT Appointment [facility] [address] [place] [address] Roc Fulton MD Three [facility]. [facility] [address] [place], [place] 2[address]39 02/25/2025 1:30 PM CDT Appointment [facility] [place] [address] Roc Fulton MD Three [facility]. [facility] [address] [place], [place] [address] 02/27/2025 1:30 PM CDT Appointment [facility] [place] [address] Roc Fulton MD Three [facility]. [facility] [address] [place], [place] [address] 03/02/2025 1:30 PM CDT Appointment [facility] [place] [address] Roc Fulton MD Three [facility]. [facility] [address] [place], [place] [address] 03/04/2025 1:30 PM CDT Appointment [facility] [place] [address] Roc Fulton MD Three [facility]. [facility] [address] [place], [place] [address] 03/06/2025 1:30 PM CDT Appointment [facility] [address] [place] [address] [address] [place] [address] Roc Fulton MD Three [facility]. [facility] [address] [place], [place] [address] 03/09/2025 1:30 PM CDT Appointment [facility] [address] [place] [address] [place] [address] Roc Fulton MD [facility] [address] [place], [place] 411839 03/18/2025 2:30 PM CDT Office Visit [facility] THREE [facility], [place] [address] [place], [place] [address] Roc Fulton MD [facility]. [facility] [address] [place], [place] [address]489 05/11/2025 2:40 PM SALES OPERATIONS ANALYST Office Visit [facility] Diabetes and Endocrinology - [address] [address] Hannah Garrison MD [address] [place] [address] documented as of this encounter Goals Goal Patient Goal Type Associated Problems Recent Progress Patient-Stated? Author Patient will return to prior living situation and remain independent in ADLs upon discharge from hospital General No Diana Todd, boat hoist operator helper - family caregiver with be involved in care transitions and discharge planning General Nicole Guerra RN Safety Patient/family will have appropriate support at home upon discharge Ayleen Singh, CURATOR OF COLLECTIONS documented as of this encounter Procedures Procedure [...] Final Result * IRON (11/03/2024) Pathologist [facility] IRON 23 50 - 180 11/03/2024 us Default History Genericprovider LABORATORY Final Result * FERRITIN (11/03/2024) Pathologist [facility] FERRITIN 184 24 - 380 11/03/2024 us Default History Genericprovider LABORATORY Final Result * CBC, MANUAL DIFF (11/03/2024) [facility] WBC 9.8 HGB 9.7 HCT 31.6 PLT 162 us Default History Genericprovider LABORATORY Final Result * THYROXINE, FREE (FT4) (11/03/2024) [facility] FREE T4 1.0 us Default History Genericprovider LABORATORY Final Result * THYROID STIM HORMONE TSH (11/03/2024) [facility] TSH 6.76 us Default History Genericprovider LABORATORY Final Result * BNP (11/03/2024) [facility] B TYPE NATRIURETIC PEPTIDE 383 us Default History Genericprovider LABORATORY Final Result documented in this encounter Visit Diagnoses Not on filedocumented in this encounter Additional Health Concerns Assessment Noted Time PHQ-9 Depression Total Score: 0 11/19/19 22 3:11 PM CDT documented as of this encounter Care Teams Shaker Repairer Relationship Specialty Start Date End Date Adrienne Marin MD [address] [place] [address] PCP - General INTERNAL MEDICINE 05/09/24 Gladys Sanchez MD [place] [employer] Professor CARDIOVASCULAR DISEASE 05/28/19 documented as of this encounter
--- OUTSIDE RECORDS SUMMARY | 2024-12-23 20:18 | XMS_ITS | Encounter Summary ---
Author Organization [facility] Address Critical access hospital[address] [place] [address] Care Team Providers Care Editing Clerk Name Role Phone Gladys Sanchez MD Unavailable [phone] Adrienne Marin MD Primary Care Provider [phone] Anna Landry RN Unavailable Unavailable Anna Landry RN Unavailable Unavailable Encounter Details Date Type Department Care Team (Late st Contact Info) Description 10/13/2024 EpicTopic Message Enc [facility] [address] [place] [address] [facility] Provider levETIRAcetam (KEPPRA) 750 MG tablet Social History Tobacco Use Types Packs/Day Years Used Date Smoking Tobacco: Never Passive Smoke Exposure: Never Smokeless Tobacco: Never Comments:non-smoker Alcohol Use Standard Drinks/Week Comments No 0 (1 standard drink = 0.6 oz pur e alcohol) [facility] Utilities Answer Date Recorded In the past 12 months has orangutrans, oil, or water [employer] threatened to shut off services in your [...] any time in the past 12 m [facility], were you homeless or living in a care home (including now)? No 07/15/2024 Sex and Gender Information Value Date Recorded Sex Assigned at Male 07/08/2024 7:30 AM FIRST BEATER Legal Sex Male 8:56 PM CDT Gender Identity Male 07/08/2024 7:30 AM FIRST BEATER Sexual Orientation Straight 07/08/2024 7: 30 AM FIRST BEATER documented as of this encounter Functional Status [...] Info) Description 12/24/2024 1:30 PM CDT Appointment [facility] [address] [place] [address] Roc Fulton MD [address] [address] 12/29/2024 1:30 PM CDT Appointment [facility] [address] [place] [address] Roc Fulton MD Three [facility]. [place] [address] [place], [place] [address] 12/31/2024 1:30 PM CDT Appointment [facility] [address] [place] [address] Roc Fulton MD Three [facility] [place] [address] [place], [place] [address] 01/02/2025 1:30 PM CDT Appointment [facility] [address] [place] [address] Roc Fulton MD Three [facility] [address] [place], [place] [address] 01/05/2025 1:30 PM CDT Appointment [facility] [address] [place] [address] Roc Fulton MD [facility] [address] [place], [place] [address]255[address] 01/07/2025 1:30 PM CDT Appointment [facility] [address] [place] [address] Roc Fulton MD [facility] [address] [place], [place] [address] 01/09/2025 1:30 PM CDT Appointment [facility] [address] [place] [address] Roc Fulton MD Three [facility]. [facility] [address] [place], [place] [address] 01/12/2025 1:30 PM CDT Appointment [facility] [address] [place] [address] Roc Fulton MD Three [facility]. [facility] [address] [place], [place] [address] 01/14/2025 1:30 PM CDT Appointment [facility] [address] [place] [address] Roc Fulton MD Three [facility]. [facility] [address] [place], [place] [address] 01/16/2025 1:30 PM CDT Appointment [facility] [place] [address] Roc Fulton MD Three [facility]. [facility] [address] [place], [place] [address] 01/19/2025 1:30 PM CDT Appointment [facility] [place] [address] Roc Fulton MD Three [facility]. [facility] [address] [place], [place] [address] 01/21/2025 1:30 PM CDT Appointment [facility] [address] [place] [address] Roc Fulton MD Three [facility] [address] [place], [place] [address] 01/23/2025 1:30 PM CDT Appointment [facility] [address] [place] [address] Roc Fulton MD Three [facility]. [facility] [address] [place], [place] [address]25[address] 01/26/2025 1:30 PM CDT Appointment [facility] [address] [place] [address] Roc Fulton MD Three [facility]. [facility] [address] [place] [address] 01/28/2025 1:30 PM CDT Appointment [facility] [address] [place] [address] Roc Fulton MD Three [facility]. [facility] [address] [place] [address] 01/30/2025 1:30 PM CDT Appointment [facility] [address] [place] [address] Roc Fulton MD Three [facility]. [facility] [address] [place], [place] [address] 02/02/2025 1:30 PM CDT Appointment [facility] [address] [place] [address] Roc Fulton MD Three [facility]. [facility] [address] [place] [address] 02/03/2025 11:00 AM CDT Office Visit [facility] Mult[facility]ialty Care - [facility] 3 [facility], [address] [place] [address] Nathan Lechuga MD [address] [place] [address] 02/04/2025 1:30 PM CDT Appointment [facility] [address] [place] [address] Roc Fulton MD Three [facility]. [facility] [address] [place] [address] 02/06/2025 1:30 PM CDT Appointment [facility] [address] [place] [address] Roc Fulton MD Three [facility]. [address] [address] 02/09/2025 1:30 PM CDT Appointment [facility] [place] [address] Roc Fulton MD Three [facility]. [address] [address] 02/11/2025 1:30 PM CDT Appointment [facility] [place] [address] Roc Fulton MD Three [facility]. [address] [address] 02/13/2025 1:30 PM CDT Appointment [facility] [place] [address] Roc Fulton MD Three [facility] [address] [place] [address] 02/16/2025 1:30 PM CDT Appointment [facility] [place] [address] Roc Fulton MD Three [facility]. [facility] [address] [place] [address] 02/18/2025 1:30 PM CDT Appointment [facility] [address] [place] [address] Roc Fulton MD Three [facility]. [facility] [address] [place], [place] [address]139 02/20/2025 1:30 PM CDT Appointment [facility] [address] [place] [address] Roc Fulton MD Three [facility]. [facility] [address] [place], [place] [address] 02/25/2025 1:30 PM CDT Appointment [facility] [address] [place] [address] [place] [address] Roc Fulton MD Three [facility]. [facility] [address] [place], [place] [address] 02/27/2025 1:30 PM CDT Appointment [facility] [facility] [place] [address] Roc Fulton MD Three [facility]. [facility] [address] [place], [place] [address] 03/02/2025 1:30 PM CDT Appointment [facility] [place] [address] Roc Fulton MD Three [facility]. [facility] [address] [place], [place] [address] 03/04/2025 1:30 PM CDT Appointment [facility] [address] [place] [address] Roc Fulton MD Three [facility]. [facility] [address] [place], [place] [address] 03/06/2025 1:30 PM CDT Appointment [facility] [address] [place] [address] [address] [place] [address] Roc Fulton MD Three [facility]. [facility] [address] [place], [place] [address] 03/09/2025 1:30 PM CDT Appointment [facility] [address] [place] [address] [place] [address] Roc Fulton MD [facility]. [facility] [address] [place], [place] [address] 03/18/2025 2:30 PM CDT Office Visit [facility] [place] [address] [place], [place] [id number] Roc Fulton MD Three [facility]. [facility] [address] [place], [place] [address] 05/11/2025 2:40 PM FIRST BEATER Office Visit [facility] Diabetes and Endocrinology - [address] [address] Hannah Garrison MD [address] [place] [address] documented as of this encounter Goals Goal Patient Goal Type Associated Problems Recent Progress Patient-Stated? Author Patient will return to prior living situation and remain independent in ADLs upon discharge from hospital General No Diana Todd, commercial roofing estimator - family caregiver with be involved in care transitions and discharge planning General No Cole, Nicole M, RN Safety Patient/family will have appropriate support at home upon discharge General No Ayleen Garcia, EDUCATIONAL SPEECH LANGUAGE CLINICIAN documented as of this encounter Visit Diagnoses Not on filedocumented in this encounter Additional Health Concerns Assessment Noted Time PHQ-9 Depression Total Score: 0 11/19/19 22 3:11 PM CDT documented as of this encounter Care Teams Editing Clerk Relationship Specialty Start Date End Date Adrienne Marin MD [address] [place] [phone] PCP - General INTERNAL MEDICINE 05/09/24 Gladys Sanchez MD [place] [employer] Director CARDIOVASCULAR DISEASE 05/28/19 Anna Landry orchestra teacher (Ambulatory) REGISTERED NURSE 10/29/24 11/02/24 Anna Landry RN Care Manager (Ambulatory) REGISTERED NURSE 11/03/24 11/09/24 documented as of this encounter
--- OUTSIDE RECORDS SUMMARY | 2024-12-23 20:18 | XMS_ITS | Encounter Summary ---
Author Organization [facility] Address [facility] [place] [address] Care Team Providers Care Chain Splitter Name Role Phone Adrian Lee MD Primary Care Provider [phone] Gladys Sanchez MD Unavailable [phone] Adrienne Marin MD Primary Care Provider [phone] Anna Landry RN Unavailable Unavailable Anna Landry RN Unavailable Unavailable Encounter Details Date Type Department Care Team (Late st Contact Info) Description 05/21/2023 Hospital Follow-up Call [facility] Care Unit [address] [place] [address] Amanda Ohara RN Social History Tobacco Use Types Packs/Day Years Used Date Smoking Tobacco: Never Passive Smoke Exposure: Never Smokeless Tobacco: Never Comments:non-smoker Alcohol Use Standard Drinks/Week Comments No 0 (1 standard drink = 0.6 oz pur e alcohol) [facility] Utilities Answer Date Recorded In the past 12 months has e [employer], gas, oil, or water [employer] threatened to shut off services in your [...] Sex Assigned at Male 07/08/2024 7:30 AM HOTEL OPERATION MANAGER Legal Sex Male 8:56 PM CDT Gender Identity Male 07/08/2024 7:30 AM HOTEL OPERATION MANAGER Sexual Orientation Straight 07/08/2024 7: 30 AM HOTEL OPERATION MANAGER documented as of this encounter Functional [...] Info) Description 12/24/2024 1:30 PM CDT Appointment [facility] [place] [address] Roc Fulton MD [address] [address] 12/29/2024 1:30 PM CDT Appointment [facility] [place] [address] Roc Fulton MD [address] [address] 12/31/2024 1:30 PM CDT Appointment [facility] [place] [address] Roc Fulton MD Three [facility]. [place] [place], [place] [address] 01/02/2025 1:30 PM CDT Appointment [facility] [address] [place] [address] Roc Fulton MD Three [facility]. [address] [place], [place] [address] 01/05/2025 1:30 PM CDT Appointment [facility] [address] [place] [place] [address] Roc Fultno MD Three [facility]. [address] [place], [place] [address] 01/07/2025 1:30 PM CDT Appointment [facility] [address] [place] [address] Roc Fulton MD Three [facility]. [facility] [address] [place], [place] [address] 01/09/2025 1:30 PM CDT Appointment [facility] [place] [address] Roc Fulton MD Three [facility]. [address] [place], [place] [address] 01/12/2025 1:30 PM CDT Appointment [facility] [address] [place] [address] Roc Fulton MD Three [facility]. [address] [place], [place] 83[address]89 01/14/2025 1:30 PM CDT Appointment [facility] [address] [place] [address] Roc Fulton MD Three [facility]. [place] [place], [place] [address] 01/16/2025 1:30 PM CDT Appointment [facility] [address] [place] [address] Roc Fulton MD Three [facility]. [address] [place], [place] [address] 01/19/2025 1:30 PM CDT Appointment [facility] [address] [place] [address] [address] [place] [address] Roc Fulton MD Three [facility]. [facility] [address] [place], [place] 3[address] 01/21/2025 1:30 PM CDT Appointment [facility] [place] [address] Roc Fulton MD Three [facility]. [facility] [address] [place], [place] [address] 01/23/2025 1:30 PM CDT Appointment [facility] [place] [address] Roc Fulton MD Three [facility]. [facility] [address] [place], [place] 4965[address] 01/26/2025 1:30 PM CDT Appointment [facility] [place] [address] Roc Fulton MD Three [facility]. [facility] [address] [place], [place] [address] 01/28/2025 1:30 PM CDT Appointment [facility] [address] [place] [address] Roc Fulton MD Three [facility]. [address] [address] 01/30/2025 1:30 PM CDT Appointment [facility] [address] [place] [address] Roc Fulton MD Three [facility]. [address] [address] 02/02/2025 1:30 PM CDT Appointment [facility] [address] [place] [address] Roc Fulton MD Three [facility]. [address] [address] 02/03/2025 11:00 AM CDT Office Visit [facility] Medical Group Multispecialty Care - [facility] 3 [facility], [address] [place] [address] Nathan Lechuga MD 3 [place] [address] 02/04/2025 1:30 PM CDT Appointment [facility] [place] [address] Roc Fulton MD Three [address] [address] 02/06/2025 1:30 PM CDT Appointment [facility] [address] [place] [address] Roc Fulton MD Three [facility]. [address] [address] [place], [place] [address] 02/09/2025 1:30 PM CDT Appointment [facility] [address] [place] [address] Roc Fulton MD Three [facility]. [address] [place], [place] [address] 02/11/2025 1:30 PM CDT Appointment [facility] [address] [facility] [place] [address] [place] [address] Roc Fulton MD Three [facility]. [address] [place], [place] 697579 02/13/2025 1:30 PM CDT Appointment [facility] [facility] [place] [address] [place] [address] Roc Fulton MD Three [facility]. [facility] [address] [place], [place] [address] 02/16/2025 1:30 PM CDT Appointment [facility] [place] [address] Roc Fulton MD Three [facility]. [address] [place], [place] [address] 02/18/2025 1:30 PM CDT Appointment [facility] [place] [address] Roc Fulton MD Three [facility]. [address] [place], [place] [address] 02/20/2025 1:30 PM CDT Appointment [facility] [address] [place] [address] Roc Fulton MD Three [facility]. [facility] [address] [place], [place] [address] 02/25/2025 1:30 PM CDT Appointment [facility] [place] [address] Roc Fulton MD Three [facility]. [facility] [address] [place], [place] [address] 02/27/2025 1:30 PM CDT Appointment [facility] [place] [place] [address] Roc Fultno MD Three [facility] [address] [place], [place] [address] 03/02/2025 1:30 PM CDT Appointment [facility] [place] [address] Roc Fulton MD Three [address] [address] 03/04/2025 1:30 PM CDT Appointment [facility] [place] [address] Roc Fulton MD Three [facility] [address] [place], [place] [address] 03/06/2025 1:30 PM CDT Appointment [facility] [place] [address] Roc Fulton MD Three [facility] [address] [place], [place] [address] 03/09/2025 1:30 PM CDT Appointment [facility] [address] [place] [address] [place] [address] Roc Fulton MD Three [facility]. [facility] [address] [place], [place] [address] 03/18/2025 2:30 PM CDT Office Visit [facility] THREE [facility], [facility] [address] [place], [place] [address] Roc Fulton MD Three [facility]. [facility] [address] [place], [place] [address] 05/11/2025 2:40 PM HOTEL OPERATION MANAGER Office Visit [facility] Medical Group Diabetes and Endocrinology - [address] [address] Hannah Garrison MD [address] [place] [address]25731 documented as of this encounter Goals Goal Patient Goal Type Associated Problems Recent Progress Patient-Stated? Author Patient will return to prior living situation and remain independent in ADLs upon discharge from hospital General No Diana Todd, education analyst - family caregiver with be involved in care transitions and discharge planning General No Nicole Cole RN Safety Patient/family will have appropriate support at home upon discharge General No Ayleen Garcia, ANESTHESIOLOGY TECHNOLOGIST documented as of this encounter Visit Diagnoses Not on filedocumented in this encounter Additional Health Concerns Infection Onset Date Last Indicated Resolved Time COVID-19 Rule Out 07/08/2023 07/08/2023 07/08/2023 5:34 PM HOTEL OPERATION MANAGER COVID-19 Rule Out 07/07/2024 07/07/2024 07/07/2024 7:39 AM HOTEL OPERATION MANAGER Assessment Noted Time PHQ-9 Depression Total Score: 0 11/19/19 3:11 PM CDT documented as of this encounter Care Teams Chain Splitter Relationship Specialty Start Date End Date Adrian Lee MD [address] [place] [phone] PCP - General FAMILY PRACTICE 04/22/18 05/08/24 Adrienne Marin MD [address] [place] [address] PCP - General INTERNAL MEDICINE 05/09/24 Gladys Sanchez MD [address] [place] [address] Sprague Cotton Ginner Helper CARDIOVASCULAR DISEASE 05/28/19 Anna Landry, railroad car painter (Ambulatory) REGISTERED NURSE 10/29/24 11/02/24 Anna Landry railroad car painter (Ambulatory) REGISTERED NURSE 11/03/24 11/09/24 documented as of this encounter
--- OUTSIDE RECORDS SUMMARY | 2024-12-23 20:18 | XMS_ITS | Encounter Summary ---
Author Organization [facility] Address [facility] [place] [address] Care Team Providers Care Manufacturing Machine Operator Name Role Phone Gladys Sanchez MD Unavailable [phone] Adrienne Marin MD Primary Care Provider [phone] Encounter Details Date Type Department Care Team (Latest Contact Info) Description 11/13/2024 Results [place] [address] Naima Plummer RN BASIC METABOLIC PANEL, LIPID PANEL, COMPREHENSIVE METABOLIC PANEL, Additional followed-up results: 2 Social History Tobacco Use Types Packs/Day Years Used Date Smoking Tobacco: Never Passive Smoke Exposure: Never Smokeless Tobacco: Never Comments:non-smoker Alcohol Use Standard Drinks/Week Comments No 0 (1 standard drink = 0.6 oz pur e alcohol) [facility] Utilities Answer Date Recorded In the past 12 months has [employer], gas, oil, or water [employer] threatened to shut off services in your [...] place to sleep or slept in a fdc (including now)? No 05/13/2023 Housing Stability Vital [...] time in the past 12 m [facility], were you homeless or living in a fdc (including now)? No 10/26/2024 Sex and Gender Information Value Date Recorded Sex Assigned at Male 07/08/2024 7:30 AM MANAGEMENT CONSULTING Legal Sex Male 8:56 PM CDT Gender Identity Male 07/08/2024 7:30 AM MANAGEMENT CONSULTING Sexual Orientation Straight 07/08/2024 7: 30 AM MANAGEMENT CONSULTING documented as of this encounter Functional Status [...] Info) Description 12/24/2024 1:30 PM CDT Appointment [facility] [place] [address] Roc Fulton MD [facility] [address] [place], [place] [address] 12/29/2024 1:30 PM CDT Appointment [facility] [address] [place] [address] Roc Fulton MD [facility]. [place] [address] [place], [place] [address] 12/31/2024 1:30 PM CDT Appointment [facility] [address] [place] [address] Roc Fulton MD [facility]. [place] [address] [place] [address] 01/02/2025 1:30 PM CDT Appointment [facility] [place] [address] Roc Fulton MD [facility]. [facility] [address] [place], [place] [address] 01/05/2025 1:30 PM CDT Appointment [facility] [place] [address] Roc Fulton MD [facility]. [facility] [address] [place], [place] [address] 01/07/2025 1:30 PM CDT Appointment [facility] [address] [place] [address] Roc Fulton MD [facility]. [place] [address] [place] [address] 01/09/2025 1:30 PM CDT Appointment [facility] [place] [address] Roc Fulton MD [facility]. [place] [address] [place], [place] [address] 01/12/2025 1:30 PM CDT Appointment [facility] [address] [place] [address] Roc Fulton MD [facility]. [place] [address] [place], [place] [address] 01/14/2025 1:30 PM CDT Appointment [facility] [address] [place] [address] Roc Fulton MD [facility]. [place] [address] [place], [place] [address] 01/16/2025 1:30 PM CDT Appointment [facility] [address] [facility] [place] [address] Roc Fulton MD [facility]. [facility] [address] [place], [place] [address] 01/19/2025 1:30 PM CDT Appointment [facility] [place] [address] Roc Fulton MD [facility]. [place] [address] [place], [place] [address] 01/21/2025 1:30 PM CDT Appointment [facility] [address] [place] [address] Roc Fulton MD [facility]. [place] [address] [place], [place] [address] 01/23/2025 1:30 PM CDT Appointment [facility] [address] [place] [address] Roc Fulton MD [facility]. [facility] [address] [place], [place] [address]25[address] 01/26/2025 1:30 PM CDT Appointment [facility] [address] [place] [address] Roc Fulton MD [facility]. [facility] [address] [place], [place] [address] 01/28/2025 1:30 PM CDT Appointment [facility] [place] [address] Roc Fulton MD [facility]. [facility] [address] [place] [address] 01/30/2025 1:30 PM CDT Appointment [facility] [place] [address] Roc Fulton MD [facility]. [facility] [address] [place], [place] [address] 02/02/2025 1:30 PM CDT Appointment [facility] [place] [address] Roc Fulton MD [facility]. [facility] [address] [place], [place] [address] 02/03/2025 11:00 AM CDT Office Visit [facility] Medical Group Multispecialty Care - [facility] [address] [facility], [address] [place] [id number] Nathan Lechuga MD 3 [place] [address] 02/04/2025 1:30 PM CDT Appointment [facility] [address] [place] [address] Roc Fulton MD [facility]. [address] [address] 02/06/2025 1:30 PM CDT Appointment [facility] [address] [place] [address] Roc Fulton MD Three [address] [address] 02/09/2025 1:30 PM CDT Appointment [facility] [address] [place] [address] Roc Fulton MD Three [address] [address] 02/11/2025 1:30 PM CDT Appointment [facility] [place] [address] oRc Fulton MD Three [address] [address] 02/13/2025 1:30 PM CDT Appointment [facility] [address] [place] [address] Roc Fulton MD Three [address] [address] 02/16/2025 1:30 PM CDT Appointment [facility] [address] [place] [address] Roc Fulton MD [facility]. [place] [address] [place], [place] [address] 02/18/2025 1:30 PM CDT Appointment [facility] [address] [place] [address] Roc Fulton MD [facility]. [place] [address] [place], [place] [address] 02/20/2025 1:30 PM CDT Appointment [facility] [address] [place] [address] Roc Fulton MD [facility]. [facility] [address] [place], [place] [address] 02/25/2025 1:30 PM CDT Appointment [facility] [address] [place] [address] Roc Fulton MD Three [facility] [address] [place], [place] [address] 02/27/2025 1:30 PM CDT Appointment [facility] [address] [place] [address] Roc Fulton MD [facility]. [facility] [address] [place], [place] [address] 03/02/2025 1:30 PM CDT Appointment [facility] [address] [place] [address] Roc Fulotn MD Three [facility] [address] [place], [place] [address] 03/04/2025 1:30 PM CDT Appointment [facility] [address] [place] [address] [address] [place] [address] Roc Fulton MD [facility]. [facility] [address] [place], [place] [address] 03/06/2025 1:30 PM CDT Appointment [facility] [address] [place] [address] [address] [place] [address] Roc Fulton MD [facility]. [place] [address] [place], [place] [address] 03/09/2025 1:30 PM CDT Appointment [facility] [address] [place] [address] [place] [address] Roc Fulton MD [facility]. [place] [address] [place], [place] [address] 03/18/2025 2:30 PM CDT Office Visit [facility] THREE [facility], [facility] [address] [place], [place] [address] Roc Fulton MD [facility]. [facility] [address] [place], [place] [address] 05/11/2025 2:40 PM MANAGEMENT CONSULTING Office Visit [facility] Medical Group Diabetes and Endocrinology - [address] [address] Hannah Garrison MD [address] [place] [address] documented as of this encounter Goals Goal Patient Goal Type Associated Problems Recent Progress Patient-Stated? Author Patient will return to prior living situation and remain independent in ADLs upon discharge from hospital General No Diana Todd, technical sme - family caregiver with be involved in care transitions and discharge planning General No Cole, Nicole M, RN Safety Patient/family will have appropriate support at home upon discharge General Ayleen Goyal, UTILITY HELICOPTER REPAIRER documented as of this encounter Visit Diagnoses Not on filedocumented in this encounter Additional Health Concerns Assessment Noted Time PHQ-9 Depression Total Score: 0 11/19/19 22 3:11 PM CDT documented as of this encounter Care Teams Manufacturing Machine Operator Relationship Specialty Start Date End Date Adrienne Marin MD [address] [place] [address] PCP - General INTERNAL MEDICINE 05/09/24 Gladys Sanchez MD [place] Tunnel Heading Supervisor CARDIOVASCULAR DISEASE 05/28/19 documented as of this encounter
--- OUTSIDE RECORDS SUMMARY | 2024-12-23 20:18 | XMS_ITS | Clinical Summary ---
Author Organization [facility] Address [facility] [place] [address] Care Team Providers Care School Counsellor Name Role Phone Gladys Sanchez MD Unavailable [phone] Adrienne Marin MD Primary Care Provider [phone] Allergies Active Allergy Reactions Criticality Noted Date [...] 5-BEVEL PEN NEEDLES 31G X 5 MM [facility] USE TWICE DAILY TO INJECT LANTUS AND VICTOZA 023 Active pantoprazole EC (PROTONIX) 40 MG tablet Take 1 tablet (40 mg total) by mouth daily for 30 days. 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 ([facility]) TAKE 1 TABLET(750 MG) BY MOUTH TWICE DAILY 120 tablet 11 025 Active levETIRAcetam (KEPPRA) 750 MG tabletIndicati ons:Localizati 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 ([facility]) Take 1 tablet (750 mg total) by [...] stent 04/26/2018 Chronic diastolic congestive heart failure ([facility]) 04/26/2018 Type 2 diabetes mellitus wit h stage 3b chronic kidney disease, with long-term current use of insulin ([facility]) 07/19/2017 Hypertension, essential Dyslipidemia CAD (coronary artery disease) Resolved Problems Problem Noted Date Diagnosed Date Resolved Date Respiratory failure ([facility]) 10/26/2024 11/07/2024 Encephalopathy 07/06/2024 11/07/2024 NSTEMI (non-ST elevated myoc ardial infarction) ([facility]) 05/13/2023 11/07/2024 NSTEMI (non-ST elevated myoc ardial infarction) ([facility]) 06/14/2022 05/07/2023 Edema, unspecified type 03/20/202210/23 Hypokalemia 01/09/2022 05/07/2023 Diabetes mellitus without co mplication ([facility]) 01/09/2022 04/01/2022 Intracranial bleed ([facility]) 10/09/2021 11/18/2021 Dizziness 10/08/2021 11/18/2021 Acute respiratory failure ([facility]) 08/18/2021 11/18/2021 Pneumonia due to COVID-19 [...] - 12/19/2024 11:59 PM CDT Hospital Encounter [facility] [address] [place] [address] Roc Fulton MD Discharge Disposition: Home or Self Care (Routine Discharge) 12/19/2024 Telephone [facility], [address] [address] Anders Palacio NP Lab Order 12/19/2024 Travel 12/17/2024 1:04 PM CDT - 12/17/2024 11:59 PM CDT Hospital Encounter [facility] [address] [place] [address] Roc Fulton MD Discharge Disposition: Home or Self Care (Routine Discharge) 12/16/2024 2:30 PM CDT Office Visit [facility], [address] [address] Anders Palacio NP Follow Up (1 month) 12/16/2024 Travel 12/15/2024 1:04 PM CDT - 12/15/2024 11:59 PM CDT Hospital Encounter [facility] [address] [place] [address] [place] [address] Roc Fulton MD Discharge Disposition: Home or Self Care (Routine Discharge) 12/15/2024 Travel 12/12/2024 1:00 PM CDT - 12/12/2024 11:59 PM CDT Hospital Encounter [facility] [address] [place] [address] [place] [address] Roc Fulton MD Discharge Disposition: Home or Self Care (Routine Discharge) 12/12/2024 Travel 12/10/2024 12:58 PM CDT - 12/10/2024 11:59 PM CDT Hospital Encounter [facility] [address] [place] [address] [place] [address] Roc Fulton MD Discharge Disposition: Home or Self Care (Routine Discharge) 12/10/2024 Travel 12/05/2024 1:05 PM CDT - 12/05/2024 11:59 PM CDT Hospital Encounter [facility] [address] [place], [place] [address] [address] Roc Fulton MD Discharge Disposition: Home or Self Care (Routine Discharge) 12/05/2024 Travel 12/03/2024 12:59 PM CDT - 12/03/2024 11:59 PM CDT Hospital Encounter [facility] [address] [place] [address] [place] [address] Roc Fulton MD Discharge Disposition: Home or Self Care (Routine Discharge) 12/03/2024 Travel 12/01/2024 12:58 PM CDT - 12/01/2024 11:59 PM CDT Hospital Encounter [facility] [address] [facility] [place] [address] Roc Fulton MD Discharge Disposition: Home or Self Care (Routine Discharge) 12/01/2024 Travel 11/28/2024 1:14 PM CDT - 11/28/2024 11:59 PM CDT Hospital Encounter [facility] [address] [place] [address] Roc Fulton MD Discharge Disposition: Home or Self Care (Routine Discharge) 11/28/2024 Travel 11/26/2024 Scan [facility], [address] [place] [address] Scanned, Doc Pccl 11/24/2024 Orders Only [facility], [address] [place] [address] Roc Fulton MD 11/21/2024 Telephone [facility], [address] [place] [address] Roc Fulton MD Cardiac Rehab (Ok to return to cardiac rehab - [place]) 11/18/2024 2:45 PM CDT Office Visit [facility], [address] [place] [address] Anders Palacio NP Follow Up (3 week hospital follow up) 11/18/2024 Travel 11/13/2024 Results Follow-Up [facility], [address] [place] [address] Naima Plummer, RN BASIC METABOLIC PANEL, LIPID PANEL, COMPREHENSIVE METABOLIC PANEL, Additional followed-up results: 2 11/13/2024 Abstract [facility], [address] [place] [address] Joya Carolina MA 11/10/2024 Patient Outreach [facility] [address] [place] [address] Anna Landry, [place] [facility] Follow Up ([facility] 10/26/24-10/30/24) 11/07/2024 2:40 PM CDT Office Visit [facility] Diabetes [facility] Endocrinology - [place] [address] [place] [address] Hannah Garrison MD Type 2 Diabetes 11/07/2024 Travel 11/07/2024 Telephone [facility], [facility] [address] [place] [address] Anders Palacio, CUT OFF WORKER Advise 10/31/2024 Hospital Follow-up Call [facility] [place] [address] Niesha Love LPN Follow Up Call ([facility] 10/26-10/30/24) 10/31/2024 Patient Outreach [facility], [address] [address] Anna Landry, [place] [facility] ([facility] 10/26/24 - 10/30/24) 10/30/2024 Orders Only [facility], [address] [address] Roc Fulton MD 10/29/2024 Travel 10/29/2024 Patient Outreach [facility], [address] [address] Anna Landry, [place] [facility] Follow Up ([facility] Admission notification ) 10/28/2024 Travel 10/26/2024 12:49 AM CDT - 10/30/2024 12:31 PM CDT Hospital Encounter [facility] [place] [address] Lloyd Whitten MD Suresh, MD Jayla Alarcon Kandace C, MD McGowen, Payton K, MD Discharge Disposition: Home or Self Care (Routine Discharge) 10/24/2024 1:28 PM CDT - 10/24/2024 11:59 PM CDT Hospital Encounter [facility] [address] [place] [address] [place] [address] Adrienne Marin MD Discharge Disposition: Home or Self Care (Routine Discharge) 10/24/2024 Travel 10/22/2024 1:21 PM CDT - 10/22/2024 11:59 PM CDT Hospital Encounter [facility] [address] [place] [address] [place] [address] Adrienne Marin MD Discharge Disposition: Home or Self Care (Routine Discharge) 10/22/2024 Travel 10/20/2024 1:22 PM CDT - 10/20/2024 11:59 PM CDT Hospital Encounter [facility] [address] [place] [address] [place] [address] Adrienne Marin MD Discharge Disposition: Home or Self Care (Routine Discharge) 10/20/2024 Travel 10/17/2024 1:18 PM CDT - 10/17/2024 11:59 PM CDT Hospital Encounter [facility] [place] [address] Adrienne Marin MD Discharge Disposition: Home or Self Care (Routine Discharge) 10/17/2024 Travel 10/13/2024 1:23 PM CDT - 10/13/2024 11:59 PM CDT Hospital Encounter [facility] [place] [address] Adrienne Marin MD Discharge Disposition: Home or Self Care (Routine Discharge) 10/13/2024 Telephone [facility] [place] [id number] [facility] [address] [place] [address] Nathan Lechuga MD Medication 10/13/2024 Travel 10/13/2024 MyChart Message Enc [facility] Call Center [address] [place] [phone] [facility] Provider levETIRAcetam (KEPPRA) 750 MG tablet 10/10/2024 1:28 PM CDT - 10/10/2024 11:59 PM CDT Hospital Encounter [facility] [address] [facility] [place] [address] Adrienne Marin MD Discharge Disposition: Home or Self Care (Routine Discharge) 10/10/2024 Travel 10/08/2024 1:21 PM CDT - 10/08/2024 11:59 PM CDT Hospital Encounter [facility] [address] [place] [address] Adrienne Marin MD Discharge Disposition: Home or Self Care (Routine Discharge) 10/08/2024 Travel 10/03/2024 1:29 PM CDT - 10/03/2024 11:59 PM CDT Hospital Encounter [facility] [address] [place] [address] [address] Adrienne Marin MD Discharge Disposition: Home or Self Care (Routine Discharge) 10/03/2024 Travel 10/01/2024 1:18 PM CDT - 10/01/2024 11:59 PM CDT Hospital Encounter [facility] [address] [place] [address] [address] Adrienne Marin MD Discharge Disposition: Home or Self Care (Routine Discharge) 10/01/2024 Travel 09/29/2024 1:19 PM CDT - 09/29/2024 11:59 PM CDT Hospital Encounter [facility] [address] [place] [address] [address] Adrienne Marin MD Discharge Disposition: Home or Self Care (Routine Discharge) 09/29/2024 Travel 09/26/2024 1:25 PM CDT - 09/26/2024 11:59 PM CDT Hospital Encounter [facility] [place] [address] Adrienne Marin MD Discharge Disposition: Home or Self Care (Routine Discharge) 09/26/2024 Travel 09/24/2024 1:30 PM CDT - 09/24/2024 11:59 PM CDT Hospital Encounter [facility] [address] [facility] [place] [address] [place] [address] Adrienne Marin MD Discharge Disposition: Home or [...] drink = 0.6 oz pur e alcohol) [facility] Utilities Answer Date Recorded In the past 12 months has e [employer], gas, oil, or water [employer] threatened to shut off services in your [...] place to sleep or slept in a detention (including now)? No 05/13/2023 Housing Stability Vital [...] in the past 12 m [facility], were you homeless or living in a detention (including now)? 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 DRIVING SUPERINTENDENT Sexual Orientation Straight 07/08/2024 7: 30 AM PILE DRIVING SUPERINTENDENT Last Filed Vital Signs Vital Sign Reading [...] Info) Description 12/24/2024 1:30 PM CDT Appointment [facility] [address] [place] [address] Roc Fulton MD [address] [id number] 12/29/2024 1:30 PM CDT Appointment [facility] [place] [address] Roc Fulton MD [address] [address] 12/31/2024 1:30 PM CDT Appointment [facility] [place] [address] Roc Fulton MD [address] [id number] 01/02/2025 1:30 PM CDT Appointment [facility] [address] [place] [address] Rco Fulton MD Three [facility]. [facility] [address] [place], [place] [address] 01/05/2025 1:30 PM CDT Appointment [facility] [address] [place] [address] Roc Fulton MD [address] [facility] [address] [place], [place] [address] 01/07/2025 1:30 PM CDT Appointment [facility] [address] [place] [address] Roc Fulton MD [facility] [address] [place], [place] [address] 01/09/2025 1:30 PM CDT Appointment [facility] [place] [address] Roc Fulton MD [facility] [address] [place], [place] [address] 01/12/2025 1:30 PM CDT Appointment [facility] [place] [address] Roc Fulton MD [facility] [address] [place], [place] [address] 01/14/2025 1:30 PM CDT Appointment [facility] [address] [place] [address] Roc Fulton MD [facility] [address] [place], [place] [address] 01/16/2025 1:30 PM CDT Appointment [facility] [address] [place] [address] Roc Fulton MD [facility]. [facility] [address] [place], [place] [address] 01/19/2025 1:30 PM CDT Appointment [facility] [address] [place] [address] Roc Fulton MD [facility]. [facility] [address] [place], [place] [address] 01/21/2025 1:30 PM CDT Appointment [facility] [place] [address] Roc Fulton MD [facility]. [facility] [address] [place], [place] [address] 01/23/2025 1:30 PM CDT Appointment [facility] [place] [address] Roc Fulton MD [facility]. [facility] [address] [place], [place] [address] 01/26/2025 1:30 PM CDT Appointment [facility] [place] [address] Roc Fulton MD [facility] [address] [place] [address] 01/28/2025 1:30 PM CDT Appointment [facility] [place] [address] Roc Fulton MD [facility]. [place] [address] [place] [address] 01/30/2025 1:30 PM CDT Appointment [facility] [address] [place] [address] Roc Fulton MD [facility]. [place] [address] [place] [address] 02/02/2025 1:30 PM CDT Appointment [facility] [address] [place] [address] Roc Fulton MD [facility]. [facility] [address] [place] [address] 02/03/2025 11:00 AM CDT Office Visit [facility] [address] [facility], [address] [place] [address] Nathan Lechuga MD [address] [place] [address] 02/04/2025 1:30 PM CDT Appointment [facility] [place] [address] Roc Fulton MD [facility]. [facility] [address] [place] [address] 02/06/2025 1:30 PM CDT Appointment [facility] [address] [place] [address] Roc Fulton MD [facility]. [facility] [address] [place] [address] 02/09/2025 1:30 PM CDT Appointment [facility] [address] [place] [address] Roc Fulton MD [facility]. [facility] [address] [place], [place] [address] 02/11/2025 1:30 PM CDT Appointment [facility] [address] [place] [address] Roc Fulton MD [facility] [address] [place] [address] 02/13/2025 1:30 PM CDT Appointment [facility] [place] [address] Roc Fulton MD [facility] [address] [place], [place] [address] 02/16/2025 1:30 PM CDT Appointment [facility] [place] [address] Roc Fulton MD [facility] [address] [place] [address] 02/18/2025 1:30 PM CDT Appointment [facility] [place] [address] Roc Fulton MD [facility] [address] [place] [address] 02/20/2025 1:30 PM CDT Appointment [facility] [place] [address] Roc Fulton MD [facility]. [place] [address] [place], [place] [address] 02/25/2025 1:30 PM CDT Appointment [facility] [address] [place], [place] [address] [place] [address] Roc Fulton MD [facility]. [place] [address] [place], [place] [address] 02/27/2025 1:30 PM CDT Appointment [facility] [address] [place] [address] [address] [place] [address] Roc Fulton MD [facility]. [facility] [address] [place], [place] [address] 03/02/2025 1:30 PM CDT Appointment [facility] [address] [place] [address] Roc Fulton MD [facility]. [facility] [address] [place], [place] [address] 03/04/2025 1:30 PM CDT Appointment [facility] [place] [address] Roc Fulton MD [facility]. [facility] [address] [place], [place] [address] 03/06/2025 1:30 PM CDT Appointment [facility] [address] [place] [address] Roc Fulton MD [facility]. [place] [address] [place], [place] [address] 03/09/2025 1:30 PM CDT Appointment [facility] [address] [facility] [address] Roc Fulton MD [facility]. [facility] [address] [place] [address] 03/18/2025 2:30 PM CDT Office Visit [facility], [facility] [address] [place], [place] [address] Roc Fulton MD [facility]. [place] [address] [place], [place] [address] 05/11/2025 2:40 PM PILE DRIVING SUPERINTENDENT Office Visit [facility] Diabetes [facility] Endocrinology - [place] [address] [place] [address] Hannah Garrison MD [address] [place], [place] [address] Health Maintenance Due Date Last Done Comments ASCVD Statin 1950 Diabetes: Retinopathy Eye Exam 1970 Hepatitis C 1970 DTaP, Tdap and Td Vaccines (1 - Tdap) 10/24/1971 Zoster Vaccines (1 of 2) 2002 RSV Immunization or 60+ Years (1 - Risk 60-74 years 1-dose series) 2012 Annual Medicare Wellness Visit 2017 COVID-19 Vaccine ( season) 2024 10/01/2020, 09/01/2020 PHQ-2 (Physician [place]) 06/25/2024 05/09/2024 Kidney Health Evaluation 04/25/2025 04/25/2024 [...] discharge from hospital General No Diana Todd, top collar baster - family caregiver with be involved in care transitions and discharge planning General No Nicole Cole RN Safety Patient/family will have appropriate support at home upon discharge General No Ayleen Garcia, UI UX ENGINEER Procedures Procedure Name Priority Date/Time Associated Diagnosis [...] * (ABNORMAL) BASIC METABOLIC PANEL (11/05/2024) Pathologist [facility] SODIUM S/P/B 140 POTASSIUM S/P/B 3.6 CO2 21 CHLORIDE S/P/B 109 GLUCOSE 114 mg/dL CALCIUM S/P/B 8.8 BUN 30 CREATININE S/P/B 1.84(A) 0.7 - 1.3 GFR ESTIMATE 36 11/05/2024 Default History Genericprovider LABORATORY Final Result * BNP (11/03/2024) Pathologist [facility] B TYPE NATRIURETIC PEPTIDE 383 Default History Genericprovider LABORATORY Final Result * CBC, MANUAL DIFF (11/03/2024) Pathologist [facility] WBC 9.8 HGB 9.7 HCT 31.6 PLT 162 Default History Genericprovider LABORATORY Final Result * THYROXINE, FREE (FT4) (11/03/2024) Pathologist [facility] FREE T4 1.0 Result [facility] Default History Genericprovider LABORATORY Final Result * THYROID STIM HORMONE TSH (11/03/2024) Pathologist [facility] TSH 6.76 Result [facility] Default History Genericprovider LABORATORY Final Result * IRON (11/03/2024) Pathologist [facility] IRON 23 50 - 180 11/03/2024 Default History Genericprovider LABORATORY Final Result * FERRITIN (11/03/2024) Pathologist [facility] FERRITIN 184 24 - 380 11/03/2024 Default History Genericprovider LABORATORY Final Result * (ABNORMAL) POCT glucose (10/30/2024 11:38 AM CDT) Only the most recent of18 resultswithin the time period is included. [facility] GLUCOSE POC 197(H) 70 - 99 mg/dL 10/30/2024 11:47 AM CDT [facility] 10/30/2024 11:3 8 AM CDT us Kendal Harvey MD POCT ORDERABLES - DEVICE Fin al Result [facility] [address] [place] [address], [place] [phone] * (ABNORMAL) CBC W/DIFF AUTOMATED (10/30/2024 4:55 AM CDT) Only the most recent of5 resultswithin the time period is included. [facility] WBC 7.82 4.5 - 11.0 x10'3/uL 10/30/2024 5:43 AM CDT [facility] RBC 3.23(L) 4.70 - 6.10 x10'6/uL 10/30/2024 5:43 AM CDT [facility] HGB 9.5(L) 14.0 - 18.0 G/DL 10/30/2024 5:43 AM CDT [facility] HCT 28.7(L) 43.0 - 54.0 % 10/30/2024 5:43 AM CDT [facility] MCV 88.9 80.0 - 94.0 FL 10/30/2024 5:43 AM CDT [facility] MCH 29.4 27.0 - 31.0 PG 10/30/2024 5:43 AM CDT [facility] MCHC 33.1 32.0 - 36.0 G/DL 10/30/2024 5:43 AM CDT [facility] RDW 14.7(H) 11.5 - 14.5 % 10/30/2024 5:43 AM CDT [facility] PLT 161 130 - 400 x10'3/uL 10/30/2024 5:43 AM CDT [facility] MPV 12.8(H) 9.3 - 12.2 FL 10/30/2024 5:43 AM CDT [facility] DIFFERENTIAL TYPE AUTOMATED DIFFERENTIAL 10/30/2024 5:43 AM CDT [facility] NEUTROPHILS % 71.2 % 10/30/2024 5:43 AM CDT [facility] LYMPHOCYTES % 8.4 % 10/30/2024 5:43 AM CDT [facility] MONOCYTES % 10.9 % 10/30/2024 5:43 AM CDT [facility] EOSINOPHILS 7.2 % 10/30/2024 5:43 AM CDT [facility] BASOPHILS 0.8 % 10/30/2024 5:43 AM CDT [facility] IMMATURE GRANS % 1.5 % 10/31/19 5:43 AM CDT [facility] ABS. NEUTROPHILS 5.57 1.80 - 7.70 x10'3/uL 10/30/2024 5:43 AM CDT [facility] ABS. LYMPHOCYTES 0.66(L) 1.00 - 4.80 x10'3/uL 10/30/2024 5:43 AM CDT [facility] ABS. MONOCYTES 0.85(H) 0.30 - 0.82 x10'3/uL 10/30/2024 5:43 AM CDT [facility] ABS. EOSINOPHILS 0.56(H) 0.04 - 0.54 x10'3/uL 10/30/2024 5:43 AM CDT [facility] ABS. BASOPHILS 0.06 0.01 - 0.08 x10'3/uL 10/30/2024 5:43 AM CDT [facility] ABS. IMMATURE GRANULOCYTES 0.12 0.00 - 0.49 x10'3/uL 10/30/2024 5:43 AM CDT [facility] 10/30/2024 4:55 AM CDT [facility] Final Result [facility] [address] [place] [id number], * CLOSTRIDIUM DIFFICILE (10/29/2024 9:37 PM CDT) Pathologist [facility] ANTIGEN NEGATIVE NEGATIVE 10/30/2024 7:49 AM CDT [facility] C DIFFICILE TOXIN A&B (STOOL) NEGATIVE NEGATIVE 10/30/2024 7:49 AM CDT [facility] COMMENT GDH NEGATIVE/TOXI N A & B NEGATIVE: NEGATIVE FOR TOXIGENIC C. DIFFICILE. 10/30/2024 7:49 AM CDT [facility] STOOL SPECIMEN / Unknown 10/29/2024 9:37 PM CDT Kendal Harvey MD BODY FLUIDS AND STOOLS ORDER PRECIOUS Final Result [facility] [address] [place] [address], [place] [phone] * (ABNORMAL) PRO-BRAIN NATRIURETIC PEPTIDE (10/29/2024 5:10 AM CDT) Pathologist [facility] PRO-B TYPE NATRIURETIC PEPTIDE 6,744(H) <125 PG/ML 10/29/2024 3:59 PM CDT [facility] Comment: CUT POINTS ESTABLISHED BY [...] [facility] Final Result Performing Organization Address [facility] Co de Phone Number [facility] [address] [place] [address], * HEPARIN, ANTI XA, UFH (10/28/2024 10:30 AM CDT) Only the most recent of9 resultswithin the time period is included. HEPARIN ANTI XA UFH 0.41 0.30 - 0.70 IU/ML 10/28/2024 11:11 AM CDT [facility] Comment: UFH Therapeutic Anti Xa Ranges: Medical Therapeutic Range: 0.30 - 0.70 IU/mL Cardiac Therapeutic Range: 0.30 - 0.50 IU/mL Neuro Therapeutic Range: 0.20 - 0.40 IU/mL 10/28/2024 10:3 0 AM CDT Rose Dickerson MD LABORATORY Final Resu lt Performing Organization Address City/[facility]/ZIP Co de Phone Number [facility] [address] [place] [address], * XR CHEST PORTABLE (10/28/2024 3:53 AM [...] 3:54 AM Narrative 10/28/2024 3:56 AM CDT [place] [address] Examination: XR CHEST PORTABLE Exam time: 10/28/2024 [...] Procedure Note Franklin Tipton MD - 10/28/2024 [place] [address] Examination: XR CHEST PORTABLE Exam time: 10/28/2024 [...] 1,073(HH) <79 ng/L 10/28/2024 4:01 AM CDT [facility] Comment: NOT CALLED PER CRITICAL VALUE POLICY HIGH DOSES OF BIOTIN, TROPONIN-SPECIFIC AUTOANTIBODIES, AND ANTIBODY THERAPY CONTAINING HAMA MAY INTERFERE WITH THIS TEST RESULT. CORRELATION TO CLINICAL HISTORY AND PRESENTATION RECOMMENDED. 10/28/2024 3:22 AM CDT Lloyd Whitten MD LABORATORY Final Re sult [facility] [address] [place] [address], [place] [phone] * MAGNESIUM (10/28/2024 3:22 AM CDT) Only the most recent of3 resultswithin the time period is included. Pathologist [facility] MAGNESIUM 2.1 1.8 - 2.4 MG/DL 10/28/2024 4:04 AM CDT [facility] 10/28/2024 3:22 AM CDT Mervin Price DO LABORATORY Final Result [facility] [address] [place] [address], [place] [phone] * (ABNORMAL) ARTERIAL BLOOD GAS (10/28/2024 3:20 AM CDT) PH ARTERIAL 7.49(H) 7.35 - 7.45 10/28/2024 3:31 AM CDT [facility] PCO2 37.0 35.0 - 45.0 MMHG 10/28/2024 3:31 AM CDT [facility] PO2 64.0(L) 83.0 - 108.0 MMHG 10/28/2024 3:31 AM CDT [facility] TOTAL CO2 ARTERIAL 29.3(H) 19.0 - 24.0 MMOL/L 10/28/2024 3:31 AM CDT [facility] BASE EXCESS 4.7(H) 0.0 - 3.0 MMOL/L 10/28/2024 3:31 AM CDT [facility] O2 SATURATION 94 94.0 - 98.0 % 10/28/2024 3:31 AM CDT [facility] BICARB ARTERIAL 28.2(H) 21.0 - 28.0 MMOL/L 10/28/2024 3:31 AM CDT [facility] TRACY TEST TRACY TEST PERFORMED 10/28/2024 3:28 AM CDT [facility] O2 ADMIN ARTERIAL 40 10/28/2024 3:28 AM T [facility] DRAW SITE ARTERIAL RT RADIAL 10/28/2024 3:28 AM T [facility] 10/28/2024 3:20 AM CDT us Lloyd Whitten MD LABORATORY Final Re sult [facility] [address] [place] [address], [place] [phone] * Vancomycin Random Level (10/27/2024 4:24 AM CDT) Only the most recent of2 resultswithin the time period is included. VANCOMYCIN RANDOM 27.7 MCG/ML 10/27/2024 5:09 AM CDT [facility] Comment:NO THERAPEUTIC RANGE AVAILABLE LAST DOSE UNKNOWN LAST DOSE 10/27/2024 4:37 AM CDT [facility] 10/27/2024 4:24 AM CDT Mervin Price DO LABORATORY Final Result [facility] [address] [place] [address], [place] [phone] * USE ECHO 2D FU LTD W CON (10/26/2024 5:00 PM CDT) Anatomical Region Laterality Modality NA Echocardiogram 10/26/2024 4:23 PM CDT Narrative 10/27/2024 7:53 AM CDT Echocardiography Report Pat.Name: CAMILLE KEYANATARYN Glass.ID: [id number] .Date: 10/26/2024 Refer.MD: [id number] MANNY Bailey EWDPROV EWDPROV Exam Time: 4:23:00 [...] 10/27/2024 Echocardiography Report Pat.Name: KEYANA POOL Pat.ID: [id number] St.Date: 10/26/2024 Refer: [id number] MANNY Bailey EWDPROV EWDPROV Exam Time: 4:23:00 PM Study Type:ECHO WITH CARDIAC DOPPLER COMP Height: 65 in Weight: 175 lb BSA: 1.87 m2 Age: 5 1950,74Y Sex: M BP: 170/82 HR: 74 bpm Sonogrphr: CLARK HOGAN Stat.:Inpatient Room: [facility] Reason for Study:NSTEMI, Assess wall motion/EF Procedures: [...] IGG 1.00(H) <=0.90 10/29/2024 8:11 PM CDT [facility] Comment: Reference Range: <=0.90 Negative 0.91-1.09 Equivocal >=1.10 Positive A positive IgG result 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 It does not differentiate between an active or past infection. The clinical diagnosis must be interpreted in conjunction with the clinical signs and symptoms of the patient. M. PNEUMONIAE AB IGM 139 <770 U/mL 10/29/2024 8:11 PM CDT [facility] Comment: Reference Range: <770 U/ml [...] the patient. Test Performed by Mani Reynoso, [facility] [place], [address] [place], [place] Zaki Beard M.D., Ph.D., Director of Laboratories , [facility] [id number] 10/26/2024 3:50 AM CDT Lloyd Whitten MD LABORATORY Final Re sult [facility] [place] [id number] [place] [address], [place] [phone] * (ABNORMAL) HEMOGLOBIN, GLYCOSYLATED (10/26/2024 3:50 AM CDT) HGB A1C 8.3(H) <5.7 % 10/26/2024 11:19 AM CDT [facility] Comment: ADA GUIDELINES 2010 5.7 TO 6.4% INCREASED RISK OF DIABETES > OR = 6.5% CONSISTENT WITH DIABETES ESTIMATED AVG GLUCOSE 192 mg/dL 10/26/2024 11:19 AM CDT [facility] 10/26/2024 3:50 AM CDT Lloyd Whitten MD LABORATORY Final Re sult Performing Organization Address City/[facility]/ZIP Co de Phone Number [facility] [address] [place] [address], [place] [phone] * (ABNORMAL) PARTIAL THROMBOPLASTIN TIME,PTT (10/26/2024 3:50 AM CDT) PTT 69.6(H) 25.1 - 36.5 SEC 10/26/2024 4:32 AM CDT [facility] 10/26/2024 3:50 AM CDT Mervin Price LABORATORY Final Result Performing Organization Address [facility] Co de Phone Number [facility] [address] [place] [address], * (ABNORMAL) PROTIME/INR, VENOUS (10/26/2024 3:50 AM CDT) PROTIME 14.0(H) 10.2 - 12.9 SEC 10/26/2024 4:32 AM CDT [facility] INR 1.2 10/26/2024 4:32 AM CDT [facility] Comment: Recommended INR Therapeutic Goals: 2.0-3.0 Routine Therapy 2.5-3.5 Mechanical Prosthetic Valves (High Risk) 10/26/2024 3:50 AM CDT Mervin Price LABORATORY Final Result Performing Organization Address [facility] Co de Phone Number [facility] [address] [place] [address], * CULTURE, BACTERIA, BLOOD (10/26/2024 3:50 AM CDT) Only the most recent of2 resultswithin the time period is included. SPEC DESCRIPTION BLOOD 10/26/2024 2:36 AM CDT [facility] SPECIAL REQUESTS NO SPECIAL REQUEST 10/26/2024 2:36 AM CDT [facility] CULTURE RESULT NO GROWTH 5 DAYS 10/31/2024 4:12 AM CDT [facility] BLOOD SPECIMEN OBTAINED FOR BLOOD CULTURE / Unknown 10/26/2024 3:50 AM CDT 10/26/2024 4:01 AM CDT Lloyd Whitten MD MICROBIOLOGY - GENERAL O RDERABLES Final Result Performing Organization Address [facility] Co de Phone Number [facility] [address] [place] [address], [place] [phone] * STREP PNEUMO AG URINE (10/26/2024 3:49 AM CDT) S. PNEUMONIAE URINARY AG NEGATIVE NEGATIVE 10/26/2024 5:[address] [facility] URINE SPECIMEN OBTAINED VIA INDWELLING URINARY CATHETER / Unknown 10/26/2024 3:49 AM CDT Lloyd Whitten MD MICROBIOLOGY - GENERAL O RDERABLES Final Result Performing Organization Address [facility] Co de Phone Number [facility] [address] [place] [address], [place] [phone] * LEGIONELLA AG URINE (10/26/2024 3:49 AM CDT) LEGIONELLA ANTIGEN (URINE) NEGATIVE NEGATIVE 10/26/2024 5:[address] [facility] URINE SPECIMEN / Unknown 10/26/2024 3:49 AM CDT Lloyd Whitten MD MICROBIOLOGY - GENERAL O RDERABLES Final Result Performing Organization Address City/[facility] Co de Phone Number [facility] [address] [place] [address], [place] [phone] * CT CHEST+ABD+PEL WO CON (10/26/2024 3:03 [...] 3:27 AM Narrative 10/26/2024 3:44 AM CDT [facility] [address] [place], [place] [address] EXAMINATION: CT Chest, Abdomen, and Pelvis without [...] Procedure Note Megan Lynn MD - 10/26/2024 [facility] [address] [place], [place] [address] EXAMINATION: CT Chest, Abdomen, and Pelvis without [...] - 0.49 NG/ML 10/26/2024 3:11 AM CDT [facility] 10/26/2024 2:02 AM CDT Lloyd Whitten MD LABORATORY Final Re sult [facility] [address] [place] [address], [place] [phone] * LACTIC ACID - SINGLE (10/26/2024 2:02 AM CDT) LACTIC ACID VENOUS 1.6 0.4 - 2.0 MMOL/L 10/26/2024 2:32 AM CDT [facility] 10/26/2024 2:02 AM CDT Lloyd Whitten MD LABORATORY Final Re sult Performing Organization Address City/[facility]/ZIP Co de Phone Number [facility] [address] [place] [address], [place] [phone] * ECG 12 lead (10/26/2024 1:46 AM CDT) 10/26/2024 1:46 AM CDT Narrative [facility] - 10/26/2024 5:43 AM CDT [address] Test Date: 2024-10-26 Pat Name: KEYANA POOL Department: 40 Room: [id number] Gender: Male 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 * MRSA SCREENING (10/26/2024 1:15 AM CDT) SPEC DESCRIPTION NASAL 10/26/2024 1:15 AM CDT [facility] SPECIAL REQUESTS NO SPECIAL REQUEST 10/26/2024 1:15 AM CDT [facility] CULTURE RESULT NO METHICILLIN RESISTANT STAPHYLOCOCCUS AUREUS ISOLATED 10/27/2024 6:47 AM CDT [facility] SPECIMEN FROM INTERNAL NOSE / Unknown 10/26/2024 1:15 AM CDT 10/26/2024 1:18 AM CDT us Lloyd Whitten MD MICROBIOLOGY - GENERAL O RDERABLES Final Result Performing Organization Address City/[facility]/ZIP Co de Phone Number [facility] [address] [place] [address], [place] [phone] * COLONOSCOPY (05/31/2018) us Documents Scanned SCANNING [...] 6:58 PM 06/16/2022 3:34 PM Care Teams School Counsellor Relationship Specialty Start Date End Date Adrienne Marin MD [address] [place] [address] PCP - General INTERNAL MEDICINE 05/09/24 Gladys Sanchez MD [employer] Senior Project Coordinator CARDIOVASCULAR DISEASE 05/28/19
--- OUTSIDE RECORDS SUMMARY | 2024-12-23 20:18 | XMS_ITS | Encounter Summary ---
Author Organization [facility] Address [facility] [place] [address] Care Team Providers Care Account Analyst Name Role Phone Adrian Lee MD Primary Care Provider [phone] Gladys Sanchez MD Unavailable [phone] Adrienne Marin MD Primary Care Provider [phone] Anna Landry RN Unavailable Unavailable Anna Landry RN Unavailable Unavailable Encounter Details Date Type Department Care Team (Late st Contact Info) Description 01/24/2023 Abstract [facility] [address] [place] [address] Flakito Hernandez MD Social History Tobacco Use [...] Sex Assigned at Male 07/08/2024 7:30 AM BLOW MOLDER Legal Sex Male 8:56 PM CDT Gender Identity Male 07/08/2024 7:30 AM BLOW MOLDER Sexual Orientation Straight 07/08/2024 7: 30 AM BLOW MOLDER documented as of this encounter Functional Status * RETIRED Are you deaf or do you have serious difficulty hearing Answer Date of Assessment Author Status Yes 06/14/2022 7:00 PM BLOW MOLDER Activ e * RETIRED Are you blind or do you have serious difficulty seeing, even when wearing glasses? Answer Date of Assessment Author Status No 06/14/2022 7:00 PM BLOW MOLDER Activ e * Do you have serious [...] CDT Appointment [place] [address] Roc Fulton MD [address] [address] 12/29/2024 1:30 PM CDT Appointment [place] [address] Roc Fulton MD [address] [address] 12/31/2024 1:30 PM CDT Appointment [place] [address] Roc Fulton MD Three [facility]. [address] [place], [place] [address] 01/02/2025 1:30 PM CDT Appointment [facility] [address] [place], [place] [address] [place] [address] Roc Fulton MD Three [facility]. [address] [place], [place] [address] 01/05/2025 1:30 PM CDT Appointment [facility] [address] [place] [address] [place] [address] Roc Fulton MD Three [facility]. [facility] [address] [place], [place] [address] 01/07/2025 1:30 PM CDT Appointment [facility] [address] [place] [address] [address] [place] [address] Roc Fulton MD Three [facility]. [facility] [address] [place], [place] [address]349 01/09/2025 1:30 PM CDT Appointment [facility] [address] [place] [address] [place] [address] Roc Fulton MD Three [facility]. [address] [place], [place] [address] 01/12/2025 1:30 PM CDT Appointment [facility] [address] [place] [address] [place] [address] Roc Fulton MD Three [facility]. [facility] [address] [place], [place] [address] 01/14/2025 1:30 PM CDT Appointment [facility] [address] [place] [address] Roc Fulton MD Three [facility]. [facility] [address] [place], [place] [id number] 01/16/2025 1:30 PM CDT Appointment [facility] [address] [place] [address] Roc Fulton MD Three [facility] [address] [place], [place] [address] 01/19/2025 1:30 PM CDT Appointment [facility] [address] [place] [address] [place] [address] Roc Fulton MD Three [facility] [address] [place], [place] 7750[address] 01/21/2025 1:30 PM CDT Appointment [facility] [place] [address] Roc Fulton MD [address] [facility] [address] [place], [place] 4034[address] 01/23/2025 1:30 PM CDT Appointment [facility] [place] [address] Roc Fulton MD Three [facility] [address] [place], [place] [id number] 01/26/2025 1:30 PM CDT Appointment [facility] [place] [address] Roc Fulton MD Three [facility] [address] [place], [place] 288[address] 01/28/2025 1:30 PM CDT Appointment [facility] [address] [place] [address] Roc Fulton MD Three [facility]. [address] [address] 01/30/2025 1:30 PM CDT Appointment [facility] [address] Roc Fulton MD Three [address] [address] 02/02/2025 1:30 PM CDT Appointment [facility] [place] [address] Roc Fulton MD Three [address] [address] 02/03/2025 11:00 AM CDT Office Visit [facility] Multispecialty Care - [facility] [address] [facility], [address] [place] [address] Nathan Lechuga MD [address] [place] [address] 02/04/2025 1:30 PM CDT Appointment [facility] [address] Roc Fulton MD Three [address] [address] 02/06/2025 1:30 PM CDT Appointment [facility] [place] [address] Roc Fulton MD Three [facility]. [address] [place], [place] [address] 02/09/2025 1:30 PM CDT Appointment [facility] [address] [place] [address] Roc Fulton MD Three [facility]. [address] [place], [place] 9[address] 02/11/2025 1:30 PM CDT Appointment [facility] [place] [address] Roc Fulton MD Three [facility]. [facility] [address] [place], [place] [address] 02/13/2025 1:30 PM CDT Appointment [facility] [place] [address] Roc Fulton MD Three [facility] [address] [place], [place] [address] 02/16/2025 1:30 PM CDT Appointment [facility] [place] [address] Roc Fulton MD Three [facility]. [facility] [address] [place], [place] [address] 02/18/2025 1:30 PM CDT Appointment [facility] [place] [address] Roc Fulton MD Three [facility] [address] [place], [place] [address] 02/20/2025 1:30 PM CDT Appointment [facility] [address] [place] [address] Roc Fulton MD Three [facility]. [address] [place], [place] [address]26[address] 02/25/2025 1:30 PM CDT Appointment [facility] [address] [place] [address] Roc Fulton MD Three [facility]. [address] [place], [place] [address] 02/27/2025 1:30 PM CDT Appointment [facility] [address] [place] [address] Roc Fulton MD Three [facility]. [address] [place], [place] [address] 03/02/2025 1:30 PM CDT Appointment [facility] [place] [address] Roc Fulton MD Three [facility]. [facility] [address] [place], [place] [address] 03/04/2025 1:30 PM CDT Appointment [facility] [place] [address] Roc Fulton MD Three [facility]. [address] [place], [place] [address] 03/06/2025 1:30 PM CDT Appointment [facility] [place] [address] Roc Fulton MD Three [facility]. [address] [place] [address] 03/09/2025 1:30 PM CDT Appointment [facility] [address] [place] [address] [place] [address] Roc Fulton MD Three [facility]. [address] [place], [place] [address] 03/18/2025 2:30 PM CDT Office Visit [facility] THREE [facility], [address] [place], [place] [id number] Roc Fulton MD Three [facility]. [address] [place], [place] [address] 05/11/2025 2:40 PM BLOW MOLDER Office Visit [facility] Group Diabetes and Endocrinology - [address] [address] Hannah Garrison MD [address] [place] [address] documented as of this encounter Goals [...] home upon discharge General No Ayleen Garcia PLANT BUYER documented as of this encounter Visit Diagnoses Not on filedocumented in this encounter Additional Health Concerns Infection Onset Date Last Indicated Resolved Time COVID-19 Rule Out 05/13/2023 05/13/2023 05/13/2023 4:14 PM BLOW MOLDER COVID-19 Rule Out 05/13/2023 05/13/2023 05/14/2023 1:35 AM BLOW MOLDER COVID-19 Rule Out 07/08/2023 07/08/2023 07/08/2023 5:34 PM BLOW MOLDER COVID-19 Rule Out 07/07/2024 07/07/2024 07/07/2024 7:39 AM BLOW MOLDER Assessment Noted Time PHQ-9 Depression Total Score: 0 11/19/19 22 3:11 PM CDT documented as of this encounter Care Teams Account Analyst Relationship Specialty Start Date End Date Adrian Lee MD [address] [place] [address] PCP - General FAMILY PRACTICE 04/22/18 05/08/24 Adrienne Marin MD [address] [place] [address] PCP - General INTERNAL MEDICINE 05/09/24 Gladys Sanchez MD [address] [place] [address] [place] Bar Sales Designer CARDIOVASCULAR DISEASE 05/28/19 Anna Landry, rn hemo dialysis (Ambulatory) REGISTERED NURSE 10/29/24 11/02/24 Anna Landry, rn hemo dialysis (Ambulatory) REGISTERED NURSE 11/03/24 11/09/24 documented as of this encounter
--- OUTSIDE RECORDS SUMMARY | 2024-12-23 20:18 | XMS_ITS | Encounter Summary ---
Author Organization [facility] Address [facility] [place] [address] Care Team Providers Care Belt Measurer Name Role Phone Adrian Lee MD Primary Care Provider [phone] Gladys Sanchez MD Unavailable [phone] Adrienne Marin MD Primary Care Provider [phone] Anna Landry RN Unavailable Unavailable Anna Landry RN Unavailable Unavailable Encounter Details Date Type Department Care Team (Late st Contact Info) Description 10/26/2020 Abstract [facility] [address] [place] [id number] Social History Tobacco Use Types Packs/Day [...] Sex Assigned at Male 07/08/2024 7:30 AM SILK FINISHER Legal Sex Male 8:56 PM CDT Gender Identity Male 07/08/2024 7:30 AM SILK FINISHER Sexual Orientation Straight 07/08/2024 7: 30 AM SILK FINISHER COVID-19 Exposure Response Date Recorded In the last month, have you been in contact with someone who was confirmed or suspected to have Coronavirus / COVID-19? No / Unsure 10/02/2020 11:49 AM CDT documented as of this encounter Plan of Treatment Upcoming Encounters Date Type Department Care Team (Late st Contact Info) Description 12/24/2024 1:30 PM CDT Appointment [facility] [place] [address] Roc Fulton MD Three [facility] [address] [place], [place] [address] 12/29/2024 1:30 PM CDT Appointment [facility] [place] [address] Roc Fulton MD [facility] [address] [place], [place] [id number] 12/31/2024 1:30 PM CDT Appointment [facility] [place] [address] Roc Fulton MD Three [address] [id number] 01/02/2025 1:30 PM CDT Appointment [facility] [place] [address] Roc Fulton MD Three [facility] [address] [place], [place] [address] 01/05/2025 1:30 PM CDT Appointment [facility] [place] [address] Roc Fulton MD Three [facility] [address] [place], [place] [address] 01/07/2025 1:30 PM CDT Appointment [facility] [address] [place] [address] Roc Fulton MD Three [facility]. [place] [address] [place], [place] [address] 01/09/2025 1:30 PM CDT Appointment [facility] [address] [place] [address] Roc Fulton MD Three [facility]. [place] [address] [place], [place] [id number] 01/12/2025 1:30 PM CDT Appointment [facility] [address] [place], [place] [address] [address] Roc Fulton MD Three [facility]. [place] [address] [place], [place] [address] 01/14/2025 1:30 PM CDT Appointment [facility] [place] [address] Roc Fulton MD Three [facility]. [facility] [address] [place], [place] [address] 01/16/2025 1:30 PM CDT Appointment [facility] [address] [place] [address] Roc Fulton MD Three [facility]. [place] [address] [place], [place] [id number] 01/19/2025 1:30 PM CDT Appointment [facility] [address] [place] [address] Roc Fulton MD Three [facility]. [place] [address] [place], [place] [id number] 01/21/2025 1:30 PM CDT Appointment [facility] [address] [place] [address] Roc Fulton MD Three [facility] [address] [place], [place] [address] 01/23/2025 1:30 PM CDT Appointment [facility] [address] [place] [address] Roc Fulton MD Three [facility] [address] [place], [place] [address] 01/26/2025 1:30 PM CDT Appointment [facility] [place] [address] Roc Fulton MD Three [facility] [address] [place], [place] [address] 01/28/2025 1:30 PM CDT Appointment [facility] [place] [address] Roc Fulton MD Three [facility] [address] [place], [place] [address] 01/30/2025 1:30 PM CDT Appointment [facility] [place] [address] Roc Fulton MD Three [facility] [address] [place], [place] [address] 02/02/2025 1:30 PM CDT Appointment [facility] [address] [place] [address] [facility] [address] [place] [address] 02/03/2025 11:00 AM CDT Office Visit [facility] - [facility] [address] [facility], [address] [place] [address] Nathan Lechuga MD [address] [facility] [place] [address] 02/04/2025 1:30 PM CDT Appointment [facility] [address] [place] [address] Roc Fulton MD Three [facility]. [place] [address] [place] [address] 02/06/2025 1:30 PM CDT Appointment [facility] [address] [place] [address] Roc Fulton MD Three [facility]. [facility] [address] [place] [address] 02/09/2025 1:30 PM CDT Appointment [facility] [address] [place] [address] oRc Fulton MD Three [facility]. [facility] [address] [place] [address] 02/11/2025 1:30 PM CDT Appointment [facility] [address] [place] [address] Roc Fulton MD Three [facility]. [place] [address] [place] [address] 02/13/2025 1:30 PM CDT Appointment [facility] [address] [place] [address] Roc Fulton MD Three [facility]. [place] [address] [place], [place] [address] 02/16/2025 1:30 PM CDT Appointment [facility] [place] [address] Roc Fulton MD Three [facility]. [place] [address] [place], [place] [address] 02/18/2025 1:30 PM CDT Appointment [facility] [place] [address] Roc Fulton MD Three [facility]. [place] [address] [place], [place] [address] 02/20/2025 1:30 PM CDT Appointment [facility] [place] [address] Roc Fulton MD Three [facility]. [facility] [address] [place], [place] [address] 02/25/2025 1:30 PM CDT Appointment [facility] [place] [address] Roc Fulton MD Three [facility]. [place] [address] [place], [place] [address] 02/27/2025 1:30 PM CDT Appointment [facility] [place] [address] Roc Fulton MD Three [facility]. [place] [address] [place] [address] 03/02/2025 1:30 PM CDT Appointment [facility] [address] [place] [address] [address] [place] [address] Roc Fulton MD Three [facility]. [place] [address] [place] [address] 03/04/2025 1:30 PM CDT Appointment [facility] [address] [place] [address] [place] [address] Roc Fulton MD Three [facility]. [place] [address] [place] [address] 03/06/2025 1:30 PM CDT Appointment [facility] [place] [address] Roc Fulton MD Three [facility]. [place] [address] [place] [address] 03/09/2025 1:30 PM CDT Appointment [facility] [address] [place] [address] [address] [place] [address] Roc Fulton MD Three [facility]. [place] [address] [place] [address] 03/18/2025 2:30 PM CDT Office Visit [facility] THREE [facility], [place] [address] [place] [address] Roc Fulton MD Three [facility]. [place] [address] [place] [address] 05/11/2025 2:40 PM SILK FINISHER Office Visit [facility] Diabetes and Endocrinology - [address] [place] [phone] Hannah Garrison MD [address] [facility] [place] [address] documented as of this encounter Visit Diagnoses Not on filedocumented in this encounter Additional Health Concerns Infection Onset Date Last Indicated Resolved Time COVID-19 Rule Out 07/19/2021 07/19/2021 07/19/2021 9:17 PM SILK FINISHER COVID-19 Rule Out 07/19/2021 07/19/2021 07/20/2021 7:01 PM SILK FINISHER COVID-19 Rule Out 08/18/2021 08/18/2021 08/18/2021 12:03 PM SILK FINISHER COVID-19 Confirmed 08/18/2021 08/18/2021 12:32 AM CDT COVID-19 Rule Out 09/13/2021 09/13/2021 09/13/2021 5:00 AM CDT COVID-19 Rule Out 05/23/2022 05/23/2022 05/23/2022 3:38 PM SILK FINISHER Influenza - Seasonal 05/23/2022 05/23/2022 023 12:34 AM SILK FINISHER COVID-19 Rule Out 05/13/2023 05/13/2023 05/13/2023 4:14 PM SILK FINISHER COVID-19 Rule Out 05/13/2023 05/13/2023 05/14/2023 1:35 AM SILK FINISHER COVID-19 Rule Out 07/08/2023 07/08/2023 07/08/2023 5:34 PM SILK FINISHER COVID-19 Rule Out 07/07/2024 07/07/2024 07/07/2024 7:39 AM SILK FINISHER documented as of this encounter Care Teams Belt Measurer Relationship Specialty Start Date End Date Adrian Lee MD [address] [facility] [place] [address] PCP - General FAMILY PRACTICE 04/22/18 05/08/24 Adrienne Marin MD [address] [place] [address] PCP - General INTERNAL MEDICINE 05/09/24 Gladys Sanchez MD [address] [facility] [place] [address] Garfield External Auditor CARDIOVASCULAR DISEASE 05/28/19 Anna Landry, hotel operations manager (Ambulatory) REGISTERED NURSE 10/29/24 11/02/24 Anna Landry, hotel operations manager (Ambulatory) REGISTERED NURSE 11/03/24 11/09/24 documented as of this encounter
--- NOTE | 2024-12-23 20:26 | ED_ITS ---
HPI - Head Injury General Chief complaint: Head Injury Stated complaint: HEAD INJURY Time Seen by Provider: 12/23/24 20:05 Source: patient and family Mode of arrival: ambulatory Limitations: no limitations History of Present Illness HPI Narrative: this is a 74-year-old male that was on a ladder and the ladder slipped from underneath him while he was hanging on a ledge on the his home fell and hit the back of his head on concrete did not lose consciousness, patient doing well otherwise no loss of consciousness no blurry vision no headache no nausea vomiting patient is on Plavix and aspirin and family was concerned and wanted patient to be checked out. No other injuries noted no neurological deficits. MD Complaint: head injury Onset (ago): hour(s) Place: outdoors Loss of Consciousness: no Location of injury: occipital Severity: mild Related Data Home Medications ?Medication ?Instructions ?Recorded ?Confirmed ?Last Taken ?Type Adult Multivitamin with Iron 1 tab-cap PO DAILY 06/09/22 12/11/24 08/22/24 History aspirin 81 mg tablet,delayed 81 mg PO DAILY 06/09/22 12/11/24 08/22/24 History release atorvastatin 80 mg BYMOUTH HS 06/09/22 12/11/24 08/22/24 History carvedilol 12.5 mg tablet (Coreg) 25 mg PO BID 06/09/22 12/11/24 08/22/24 History ferrous sulfate 325 mg (65 mg 650 mg PO DAILY 06/09/22 12/11/24 Unknown History iron) tablet (Feosol) fluticasone 250 mcg-salmeterol 50 1 inh inhalation Q12H 06/09/22 12/11/24 08/22/24 History mcg/dose blistr powdr for inhalation (Wixela Inhub) hydralazine 50 mg tablet 100 mg PO Q8H 06/09/22 12/11/24 08/22/24 History pantoprazole 40 mg tablet,delayed 40 mg PO DAILY@0630 06/09/22 12/11/24 08/22/24 History release (Protonix) sertraline 100 mg tablet (Zoloft) 100 mg PO DAILY 06/09/22 12/11/24 08/22/24 History acetaminophen 650 mg 1,300 mg PO Q8H PRN fever or pain 08/23/24 12/11/24 Unknown History tablet,extended release (8 Hour Pain Reliever) alfuzosin 10 mg tablet,extended 10 mg PO DAILY 08/23/24 12/11/24 08/22/24 History release 24 hr allopurinol 100 mg tablet 100 mg PO DAILY 08/23/24 12/11/24 08/22/24 History cetirizine 10 mg capsule (All Day 10 mg PO DAILY 08/23/24 12/11/24 08/22/24 History Allergy (cetirizine)) clopidogrel 75 mg tablet (Plavix) 75 mg PO DAILY 08/23/24 12/11/24 08/22/24 History ferrous sulfate 325 mg (65 mg 325 mg PO DAILY 08/23/24 12/11/24 08/21/24 History iron) tablet (Iron (ferrous sulfate)) fiber 1 tablet PO BID 08/23/24 12/11/24 Unknown History fluticasone 250 mcg-salmeterol 50 1 inh inhalation Q12H 08/23/24 12/11/24 08/22/24 History mcg/dose blistr powdr for inhalation (Advair Diskus) furosemide 80 mg tablet 80 mg PO DAILY 08/23/24 12/11/24 08/22/24 History gabapentin 300 mg capsule 300 mg PO TID 08/23/24 12/11/24 08/22/24 History insulin aspar prot-insulin aspart 30 unit subcut BID 08/23/24 12/11/24 08/22/24 History 100 unit/mL (70-30) subcutaneous pen isosorbide mononitrate 30 mg 30 mg PO DAILY 08/23/24 12/11/24 08/22/24 History tablet,extended release 24 hr levetiracetam 750 mg tablet 1,500 mg PO Q12H 08/23/24 12/11/24 08/22/24 History melatonin 10 mg capsule 10 mg PO HS 08/23/24 12/11/24 08/22/24 History Allergies Allergy/AdvReac Type Severity Reaction Status Date / Time cefaclor (From [facility]) Allergy Mild Rash Verified 08/23/24 12:56 Cephalosporins Allergy Unknown Verified 08/23/24 12:56 pioglitazone Allergy Unknown Verified 08/23/24 12:56 Review of Systems Review of Systems: All systems reviewed & are unremarkable except as noted in HPI and below PMFSH Past Medical History Medical History Gout Dyslipidemia CAD (coronary artery disease) Anemia Congestive heart failure Diabetes mellitus type 2, insulin dependent Surgical History Surgical History H/O heart artery stent Social History Social History Smoking status: Never smoker Second hand tobacco smoke exposure: No Alcohol intake: never Substance use: never Substance use type: does not use Do You Feel Safe in your Home?: Yes Lack of Transportation: No Lack of Food: Never True Current Housing: I Have Housing Concerned About Future Housing: No Difficulty Paying Gas/Electric Bills: No Difficulty Paying for Meds: No Currently Unemployed: No Education: Associate Degree Difficulty w/ Childcare or Family Care: No Spiritual care concerns: No Exam Const: General: healthy appearing and no acute distress Nutritional Appearance: well nourished Orientation/consciousness: patient oriented x3 Limitations: no limitations HENMT: Head: normal to inspection Eyes: Conjunctivae: conjunctivae normal Pupils: Equal, round and reactive pupils present EOM: EOMs intact bilaterally Neck: Neck: normal visual inspection, no lymphadenopathy and no meningeal signs Chest: Chest palpation & inspection: normal inspection of the chest Resp: Effort & Inspection: normal respiratory effort Auscultation: clear to auscultation bilaterally Cardio: Rate: regular rate Rhythm: regular rhythm GI: GI Palp: Yes Soft to palpation Auscultation: normal bowel sounds Back/Spine/Pelvis: Back: no CVA tenderness Skin: General skin exam: normal color Rashes: no rashes Wounds: no wounds Neuro: General: patient oriented x3, moves all extremities, no meningeal signs and no focal motor deficits Cranial nerves: Yes CN's II-XII intact bilaterally Speech: normal speech Gait exam (Neuro): Normal gait present Extrem: General: normal to inspection, no clubbing, cyanosis or edema and no pedal edema Course Course Emergency Course: Patient declined any pain medicine at this time with no headaches but since he is on Plavix and aspirin to CT scan of the brain which showed no acute intracranial abnormalities. Vital Signs Vital signs: Vital Signs Temperature 36.7 C 12/23/24 19:53 Pulse Rate 65 12/23/24 19:53 Respiratory Rate 14 12/23/24 19:53 Blood Pressure 168/92 H 12/23/24 19:53 Pulse Oximetry 97 12/23/24 19:53 Oxygen Delivery Room Air 12/23/24 19:53 Temperature 36.7 C 12/23/24 19:53 Pulse Rate 65 12/23/24 19:53 Respiratory Rate 14 12/23/24 19:53 Blood Pressure 168/92 H 12/23/24 19:53 Pulse Oximetry 97 12/23/24 19:53 Oxygen Delivery Room Air 12/23/24 19:53 Critical Care Time Critical Care Time Critical Care Time: No Discharge Plan Discharge Clinical Impression: Minor closed head injury Patient Disposition: Home Condition: Stable Instructions: Antibiotic Form, Head Injury (ED) Additional Instructions: advised to take Tylenol as needed for headaches and symptoms persist or worsen should follow with primary care physician or return to the nearest emergency department. Patient Language: Chinese Prescriptions: No Action atorvastatin 80 mg BYMOUTH HS fluticasone propion-salmeterol [Wixela Inhub] 250-50 mcg/dose Blister With Device 1 inh INHALATION Q12H carvedilol [Coreg] 12.5 mg Tablet 25 mg PO BID Rx Instructions: must administer with a meal/food aspirin 81 mg Tablet,Delayed Release (Dr/Ec) 81 mg PO DAILY pantoprazole [Protonix] 40 mg Tablet,Delayed Release (Dr/Ec) 40 mg PO DAILY@0630 ferrous sulfate [Feosol] 325 mg (65 mg iron) Tablet 650 mg PO DAILY Patient Comments: Mon-Wed-Sun hydralazine 50 mg Tablet 100 mg PO Q8H Rx Instructions: hold if sbp<120 sertraline [Zoloft] 100 mg Tablet 100 mg PO DAILY Adult Multivitamin with Iron 1 tab-cap PO DAILY allopurinol 100 mg tablet 100 mg PO DAILY alfuzosin 10 mg tablet extended release 24 hr 10 mg PO DAILY furosemide 80 mg tablet 80 mg PO DAILY insulin asp prt-insulin aspart 100 unit/mL (70-30) insulin pen 30 unit SUBCUT BID gabapentin 300 mg capsule 300 mg PO TID levetiracetam 750 mg tablet 1,500 mg PO Q12H fluticasone propion-salmeterol [Advair Diskus] 250-50 mcg/dose blister with device 1 inh inhalation Q12H All Day Allergy (cetirizine) 10 mg capsule 10 mg PO DAILY clopidogrel [Plavix] 75 mg tablet 75 mg PO DAILY isosorbide mononitrate 30 mg tablet extended release 24 hr 30 mg PO DAILY melatonin 10 mg capsule 10 mg PO HS fiber Tablet,Chewable 1 tablet PO BID acetaminophen [8 Hour Pain Reliever] 650 mg tablet extended release 1,300 mg PO Q8H PRN (Reason: fever or pain) ferrous sulfate [Iron (ferrous sulfate)] 325 mg (65 mg iron) tablet 325 mg PO DAILY Patient Comments: Take on Take 2 tabs on guaifenesin [Mucus Relief ER] 600 mg Tablet Extended Release 12hr 1,200 mg PO Q12HR Qty: 15 0RF Rx Instructions: OTC Follow-up/Referrals: Adrienne Marin MD [Primary Care Provider] -
[2024-12-23 20:52] VITALS: BP 165/79; PULSE 75; RESP 18; O2SAT 97
== END 2024-12-23 20:52 | disposition home or self-care (01) ==
PROVIDERS: Emergency Provider Emergency Medicine; PCP Internal Medicine
DX: S09.90XA Unspecified injury of head, initial encounter (principal); I25.10 Atherosclerotic heart disease of native coronary artery without angina pectoris; I50.9 Heart failure, unspecified; E11.9 Type 2 diabetes mellitus without complications; W01.0XXA Fall on same level from slipping, tripping and stumbling without subsequent striking against object, initial encounter
CPT/HCPCS: 70450; 99284

== ENCOUNTER 2024-12-25 10:23 | Outpatient (CLI) | payer MEDICARE, SELFPAY ==
--- OUTSIDE RECORDS SUMMARY | 2024-12-25 10:29 | XMS_ITS | Encounter Summary ---
Author Organization [facility] Address [address] [place] [address] Care Team Providers Care Senior Portfolio Analyst Name Role Phone Gladys Sanchez MD Unavailable Adrienne Marin MD Primary Care Provider [phone] Encounter Details Date Type Department Care Team (Late st Contact Info) Description 11/13/2024 Abstract [facility] [address] Joya Vera MA Social History Tobacco Use Types Packs/Day Years Used Date Smoking Tobacco: Never Passive Smoke Exposure: Never Smokeless Tobacco: Never Comments:non-smoker Alcohol Use Standard Drinks/Week Comments No 0 (1 standard drink = 0.6 oz pur e alcohol) [facility] Utilities Answer Date Recorded In the past 12 months has [employer], gas, oil, or water [employer] threatened to shut off services in your [...] No 05/13/2023 Housing Stability Vital Sign Answer Jayedn e Recorded In the last 12 months, was t here a time when you were not able to pay the mortgage or rent on time? No 10/26/2024 In the past 12 months, how m any times have you moved where you were living? 0 10/26/2024 At any time in the past 12 m [facility], were you homeless or living in a senior care (including now)? No 10/26/2024 Sex and Gender Information Value Date Recorded Sex Assigned at Male 07/08/2024 7:30 AM WIG STYLIST Legal Sex Male 8:56 PM CDT Gender Identity Male 07/08/2024 7:30 AM WIG STYLIST Sexual Orientation Straight 07/08/2024 7: 30 AM WIG STYLIST documented as of this encounter Functional Status [...] Care Team (Late st Contact Info) Description 12/29/2024 1:30 PM CDT Appointment [facility] [address] [facility] [address] [place] [address] Roc Fulton MD [facility]. [facility] [address] [place] [address] 12/31/2024 1:30 PM CDT Appointment [facility] [address] [place] [address] Roc Fulton MD Three [facility]. [facility] [address] [place], [place] [address] 01/02/2025 1:30 PM CDT Appointment [facility] formerly [facility] [place] [address] Roc Fulton MD Three [facility] [address] [place], [place] [id number] 01/05/2025 1:30 PM CDT Appointment [facility] formerly [facility] [place] [address] Roc Fulton MD Three [facility] [address] [place], [place] [address]99 01/07/2025 1:30 PM CDT Appointment [facility] formerly [facility] [place] [address] Roc Fulton MD Three [address] [address] 01/09/2025 1:30 PM CDT Appointment [facility] formerly [facility] [place] [address] Roc Fulton MD Three [address] [address] 01/12/2025 1:30 PM CDT Appointment [facility] formerly [facility] [place] [address] Roc Fulton MD Three [facility] [address] [place], [place] [address] 01/14/2025 1:30 PM CDT Appointment [facility] [address] [place] [address] Roc Fulton MD Three [facility]. [facility] [address] [place], [place] [address] 01/16/2025 1:30 PM CDT Appointment [facility] [address] [place] [address] Roc Fulton MD Three [facility]. [facility] [address] [place] [address] 01/19/2025 1:30 PM CDT Appointment [facility] formerly [facility] [place] [address] Roc Fulton MD Three [facility]. [facility] [address] [place], [place] [address]69 01/21/2025 1:30 PM CDT Appointment [facility] formerly [facility] [place] [address] Roc Fulton MD Three [facility]. [facility] [address] [place] [address] 01/23/2025 1:30 PM CDT Appointment [facility] [address] [place] [address] Roc Fulton MD Three [facility]. [facility] [address] [place] [address] 01/26/2025 1:30 PM CDT Appointment [facility] formerly [facility] [place] [address] Roc Fulton MD Three [facility]. [place] [address] [place], [place] [address] 01/28/2025 1:30 PM CDT Appointment [facility] [address] [facility] [place] [address] Roc Fulton MD Three [facility]. [facility] [address] [place], [place] [address] 01/30/2025 1:30 PM CDT Appointment [facility] [address] [facility] [place] [address] Roc Fulton MD Three [facility]. [facility] [address] [place] [address] 02/02/2025 1:30 PM CDT Appointment [facility] [facility] [place] [place] [address] Roc Fulton MD Three [facility]. [facility] [address] [place], [place] 87[address]99 02/03/2025 11:00 AM CDT Office Visit [facility] Multispecialty Care - [facility] [address] [facility], [address] [place] [address] Nathan Lechuga MD 3 [facility] [place] [address] 02/04/2025 1:30 PM CDT Appointment [facility] [address] [facility] [place] [address] [place] [address] Roc Fulton MD Three [facility]. [place] [address] [place] [address] 02/06/2025 1:30 PM CDT Appointment [facility] [address] [place] [address] Roc Fulton MD Three [facility] [address] [place], [place] 8[address]209 02/09/2025 1:30 PM CDT Appointment [facility] [address] [place] [address] Roc Fulton MD Three [facility] [address] [place], [place] [address]24[address] 02/11/2025 1:30 PM CDT Appointment [facility] [address] [place] [address] Roc Fulton MD Three [facility] [address] [place], [place] 326939 02/13/2025 1:30 PM CDT Appointment [facility] [place] [address] Roc Fulton MD Three [facility] [address] [place], [place] 565799 02/16/2025 1:30 PM CDT Appointment [facility] [place] [address] Roc Fulton MD Three [facility] [address] [place], [place] 728489 02/18/2025 1:30 PM CDT Appointment [facility] [address] [place] [address] Roc Fulton MD [facility] [address] [place], [place] 202839 02/20/2025 1:30 PM CDT Appointment [facility] [address] [place] [address] Roc Fulton MD Three [facility]. [facility] [address] [place], [place] 423989 02/25/2025 1:30 PM CDT Appointment [facility] [address] [place] [address] Roc Fulton MD Three [facility]. [facility] [address] [place], [place] [address]189 02/27/2025 1:30 PM CDT Appointment [facility] [place] [address] Roc Fulton MD Three [facility]. [facility] [address] [place], [place] [address]549 03/02/2025 1:30 PM CDT Appointment [facility] [place] [address] Roc Fulton MD Three [facility]. [facility] [address] [place], [place] 233039 03/04/2025 1:30 PM CDT Appointment [facility] [place] [address] Roc Fulton MD Three [facility]. [facility] [address] [place], [place] [address] 03/06/2025 1:30 PM CDT Appointment [facility] [place] [address] Roc Fulton MD Three [facility]. [place] [address] [place], [place] 534159 03/09/2025 1:30 PM CDT Appointment [facility] [address] [place] [address] Roc Fulton MD Three [facility]. [place] [address] [place], [place] [address]3059 03/18/2025 2:30 PM CDT Office Visit Carlene Sofia[facility], [place] [address] [place], [place] [address] Roc Fulton MD Three [facility]. [facility] [address] [place], [place] [address]97449 05/11/2025 2:40 PM WIG STYLIST Office Visit [facility] Diabetes and Endocrinology - [address] [address] Hannah Garrison MD [address] [place] [address] documented as of this encounter Goals Goal Patient Goal Type Associated Problems Recent Progress Patient-Stated? Author Patient will return to prior living situation and remain independent in ADLs upon discharge from hospital General No Diana Todd, furniture crater - family caregiver with be involved in care transitions and discharge planning General No Nicole Cole RN Safety Patient/family will have appropriate support at home upon discharge General No Ayleen Garcia, BOILER INSTALLER documented as of this encounter Procedures Procedure Name Priority Date/Time Associated Diagnosis Comments CBC (OUTSIDE LAB) Routine 12/23/2024 COMPREHENSIVE METABOLIC PANEL Routine 11/26/2024 LIPID PANEL Routine 11/26/2024 BASIC METABOLIC PANEL Routine 11/05/2024 BNP Routine 11/03/2024 CBC, MANUAL DIFF Routine 11/03/2024 THYROXINE, FREE (FT4) Routine 11/03/2024 THYROID STIM HORMONE TSH Routine 11/03/2024 IRON Routine 11/03/2024 FERRITIN Routine 11/03/2024 documented in this encounter Results * CBC (OUTSIDE LAB) (12/23/2024) Pathologist [facility] WBC 5.8 HGB 10.2 HCT 32.5 PLT 156 12/23/2024 us Default History Genericprovider LAB-OUTSIDE/ABST RACTED Final Result * (ABNORMAL) COMPREHENSIVE METABOLIC PANEL (11/26/2024) Pathologist [facility] SODIUM S/P/B 142 GLUCOSE 178 mg/dL BUN [...] Final Result * CBC, MANUAL DIFF (11/03/2024) [facility] WBC 9.8 HGB 9.7 HCT 31.6 PLT 162 us Default History Genericprovider LABORATORY Final Result * THYROXINE, FREE (FT4) (11/03/2024) [facility] FREE T4 1.0 us Default History Genericprovider LABORATORY Final Result * THYROID STIM HORMONE TSH (11/03/2024) [facility] TSH 6.76 us Default History Genericprovider LABORATORY Final Result * BNP (11/03/2024) [facility] B TYPE NATRIURETIC PEPTIDE 383 us Default History Genericprovider LABORATORY Final Result documented in this encounter Visit Diagnoses Not on filedocumented in this encounter Additional Health Concerns Assessment Noted Time PHQ-9 Depression Total Score: 0 11/19/19 22 3:11 PM CDT documented as of this encounter Care Teams Senior Portfolio Analyst Relationship Specialty Start Date End Date Adrienne Marin MD [address] [place] [address] PCP - General INTERNAL MEDICINE 05/09/24 Gladys Sanchez MD [employer] Trainer CARDIOVASCULAR DISEASE 05/28/19 documented as of this encounter
--- OUTSIDE RECORDS SUMMARY | 2024-12-25 10:29 | XMS_ITS | Encounter Summary ---
Author Organization [facility] Address [facility] [place] [address] Care Team Providers Care River Rafting Guide Name Role Phone Adrian Lee MD Primary Care Provider [phone] Gladys Sanchez MD Unavailable Adrienne Marin MD Primary Care Provider [phone] Anna Landry RN Unavailable Unavailable Anna Landry RN Unavailable Unavailable Encounter Details Date Type Department Care Team (Late st Contact Info) Description 07/25/2022 Abstract [facility] BUSINESS OFF[facility] [address] [place] [address] Abstract, Doc Cikda Social History Tobacco Use [...] Sex Assigned at Male 07/08/2024 7:30 AM POWER LINE LINEMAN Legal Sex Male 8:56 PM CDT Gender Identity Male 07/08/2024 7:30 AM POWER LINE LINEMAN Sexual Orientation Straight 07/08/2024 7: 30 AM POWER LINE LINEMAN COVID-19 Exposure Response Date Recorded In the last 10 days, have yo u been in contact with someone who was confirmed or suspected to have Coronavirus/COVID-19? No / Unsure 07/28/2022 2:26 PM POWER LINE LINEMAN documented as of this encounter Functional Status * RETIRED Are you deaf or do you have serious difficulty hearing Answer Date of Assessment Author Status Yes 06/14/2022 7:00 PM POWER LINE LINEMAN Activ e * RETIRED Are you blind or do you have serious difficulty seeing, even when wearing glasses? Answer Date of Assessment Author Status No 06/14/2022 7:00 PM POWER LINE LINEMAN Activ e * Do you have serious difficulty walking or climbing stairs? Answer Date of Assessment Author Status No 06/14/2022 7:00 PM POWER LINE LINEMAN Cathy Giles RN Active * Do you have difficulty dressing or bathing? Answer Date of Assessment Author Status No 06/14/2022 7:00 PM POWER LINE LINEMAN Cathy Giles RN Active * Because of a physical, mental, or emotional condition, do you have difficulty doing errands alone such as visiting a doctor's office or shopping? Answer Date of Assessment Author Status No 06/14/2022 7:00 PM POWER LINE LINEMAN Cathy Giles RN Active documented as of this encounter Mental Status * Because of a physical, mental, or emotional condition, do you have serious difficulty concentrating, remembering, or making decisions? Answer Entry Date Author Status No 06/14/2022 7:00 PM POWER LINE LINEMAN Cathy Giles RN Active documented in this encounter Plan of Treatment Upcoming Encounters Date Type Department Care Team (Late st Contact Info) Description 12/29/2024 1:30 PM CDT Appointment [facility] [address] [place], [place] [address] [address] Roc Fulton MD [facility] [address] [place] [address] 12/31/2024 1:30 PM CDT Appointment [place] [place] [address] Roc Fulton MD [facility]. [facility] [address] [place] [address] 01/02/2025 1:30 PM CDT Appointment [facility] [address] [place] [address] Roc Fulton MD Three [facility]. [facility] [address] [place], [place] [address] 01/05/2025 1:30 PM CDT Appointment [facility] [address] [place] [address] Roc Fulton MD Three [facility]. [address] [id number] 01/07/2025 1:30 PM CDT Appointment [place] [place] [address] Rco Fulton MD Three [facility]. [place] [address] [place], [place] [address] 01/09/2025 1:30 PM CDT Appointment [facility] [place] [address] Roc Fulton MD Three [address] 7770[address] 01/12/2025 1:30 PM CDT Appointment [facility] [place] [address] Roc Fulton MD Three [address] [id number] 01/14/2025 1:30 PM CDT Appointment [place] [place] [address] Roc Fulton MD Three [facility] [address] [place], [place] [address]509 01/16/2025 1:30 PM CDT Appointment [facility] [address] [place] [address] Roc Fulton MD Three [facility]. [facility] [address] [place], [place] [address] 01/19/2025 1:30 PM CDT Appointment [facility] [address] [place] [address] Roc Fulton MD Three [facility]. [facility] [address] [place] [address] 01/21/2025 1:30 PM CDT Appointment [facility] [place] [address] Roc Fulton MD Three [facility]. [facility] [address] [place], [place] [address] 01/23/2025 1:30 PM CDT Appointment [facility] [place] [address] Roc Fulton MD Three [facility]. [facility] [address] [place] [address] 01/26/2025 1:30 PM CDT Appointment [facility] [address] [place] [address] Roc Fulton MD Three [facility]. [facility] [address] [place] [address] 01/28/2025 1:30 PM CDT Appointment [place] [place] [address] Roc Fulton MD Three [facility]. [place] [address] [place], [place] [address] 01/30/2025 1:30 PM CDT Appointment [facility] [address] [place] [address] Roc Fulton MD Three [facility]. [place] [address] [place], [place] [address] 02/02/2025 1:30 PM CDT Appointment [place] [facility] [place] [address] Roc Fulton MD Three [facility]. [facility] [address] [place] [address] 02/03/2025 11:00 AM CDT Office Visit [facility] Medical Group Multispecialty Care - [facility] 3 [facility], [address] [place] [address] Nathan Lechuga MD 3 [facility] [place] [address] 02/04/2025 1:30 PM CDT Appointment [facility] [place] [address] Roc Fulton MD Three [facility]. [facility] [address] [place], [place] [address] 02/06/2025 1:30 PM CDT Appointment [facility] [address] [place] [place] [address] Roc Fulton MD Three [facility]. [facility] [address] [place], [place] [address] 02/09/2025 1:30 PM CDT Appointment [facility] [address] [place] [address] Roc Fulton MD Three [facility]. [facility] [address] [place] [address] 02/11/2025 1:30 PM CDT Appointment [facility] [address] [place] [address] Roc Fulton MD Three [facility] [address] [place], [place] [address] 02/13/2025 1:30 PM CDT Appointment [facility] [address] [place] [address] Roc Fulton MD Three [facility] [address] [place] [address] 02/16/2025 1:30 PM CDT Appointment [place] [place] [address] Roc Fulton MD [facility] [address] [place] [address] 02/18/2025 1:30 PM CDT Appointment [facility] [place] [address] Roc Fulton MD Three [facility] [address] [place], [place] [address]99 02/20/2025 1:30 PM CDT Appointment [facility] [address] [place] [address] Roc Fulton MD [facility] [address] [facility] [address] [place], [place] [address] 02/25/2025 1:30 PM CDT Appointment [facility] [address] [place] [address] Roc Fulton MD Three [facility]. [facility] [address] [place], [place] [address] 02/27/2025 1:30 PM CDT Appointment [facility] [address] [place] [address] Roc Fulton MD Three [facility]. [facility] [address] [place], [place] [address] 03/02/2025 1:30 PM CDT Appointment [facility] [place] [address] Roc Fulton MD Three [facility]. [facility] [address] [place], [place] [address] 03/04/2025 1:30 PM CDT Appointment [facility] [place] [address] Roc Fulton MD Three [facility]. [facility] [address] [place], [place] 240[address] 03/06/2025 1:30 PM CDT Appointment [facility] [place] [address] Roc Fulton MD Three [facility]. [facility] [address] [place] [address] 03/09/2025 1:30 PM CDT Appointment [place] [place] [address] Roc Fulton MD Three [facility]. [place] [address] [place], [place] [address] 03/18/2025 2:30 PM CDT Office Visit [facility] [place] [facility], [place] [address] [place], [place] [address] Roc Fulton MD Three [facility]. [place] [address] [place], [place] [address] 05/11/2025 2:40 PM POWER LINE LINEMAN Office Visit [facility] Medical Group Diabetes and Endocrinology - [address] [address] Hannah Garrison MD [address] [place] [id number] documented as of this encounter Goals Goal Patient Goal Type Associated Problems Recent Progress Patient-Stated? Author Patient will return to prior living situation and remain independent in ADLs upon discharge from hospital General No Diana Todd, retirement consultant - family caregiver with be involved in care transitions and discharge planning General No Nicole Cole RN Safety Patient/family will have appropriate support at home upon discharge General No Ayleen Garcia, FOOD BEVERAGE MANAGER documented as of this encounter Visit Diagnoses Not on filedocumented in this encounter Additional Health Concerns Infection Onset Date Last Indicated Resolved Time COVID-19 Rule Out 05/13/2023 05/13/2023 05/13/2023 4:14 PM POWER LINE LINEMAN COVID-19 Rule Out 05/13/2023 05/13/2023 05/14/2023 1:35 AM POWER LINE LINEMAN COVID-19 Rule Out 07/08/2023 07/08/2023 07/08/2023 5:34 PM POWER LINE LINEMAN COVID-19 Rule Out 07/07/2024 07/07/2024 07/07/2024 7:39 AM POWER LINE LINEMAN Assessment Noted Time PHQ-9 Depression Total Score: 0 05/27/20 22 3:11 PM CDT documented as of this encounter Care Teams River Rafting Guide Relationship Specialty Start Date End Date Adrian Lee MD [address] [place] [address] PCP - General FAMILY PRACTICE 04/22/18 05/08/24 Adrienne Marin MD [address] [place] [phone] PCP - General INTERNAL MEDICINE 05/09/24 Gladys Sanchez MD [address] [place] [phone] [facility] Manager CARDIOVASCULAR DISEASE 05/28/19 Anna Landry divorce attorney (Ambulatory) REGISTERED NURSE 10/29/24 11/02/24 Anna Landry RN Care Manager (Ambulatory) REGISTERED NURSE 11/03/24 11/09/24 documented as of this encounter
--- OUTSIDE RECORDS SUMMARY | 2024-12-25 10:29 | XMS_ITS | Encounter Summary ---
Author Organization [facility] Address [facility] [place] [address] Care Team Providers Care Equal Opportunity Officer Name Role Phone Gladys Sanchez MD Unavailable [phone] Adrienne Marin MD Primary Care Provider Reason for Visit * Reason Onset Date Comments Results 11/13/2024 Encounter Details Date Type Department Care Team (Latest Contact Info) Description 11/13/2024 Results Follow-Up [facility] [place] [address] Naima Plummer RN BASIC METABOLIC PANEL, LIPID PANEL, COMPREHENSIVE METABOLIC PANEL, Additional followed-up results: 3 Social History Tobacco Use Types Packs/Day Years Used Date Smoking Tobacco: Never Passive Smoke Exposure: Never Smokeless Tobacco: Never Comments:non-smoker Alcohol Use Standard Drinks/Week Comments No 0 (1 standard drink = 0.6 oz pur e alcohol) [facility] Utilities Answer Date Recorded In the past 12 months has [employer], gas, oil, or water [employer] threatened to shut off services in your [...] any time in the past 12 m [facility], were you homeless or living in a senior living (including now)? No 10/26/2024 Sex and Gender Information Value Date Recorded Sex Assigned at Male 07/08/2024 7:30 AM UNHAIRER Legal Sex Male 8:56 PM CDT Gender Identity Male 07/08/2024 7:30 AM UNHAIRER Sexual Orientation Straight 07/08/2024 7: 30 AM UNHAIRER documented as of this encounter Functional Status [...] AM LULUT Jarret Masters RN Active * Because of a physical, mental, or emotional condition, do you have difficulty doing errands alone such as visiting a doctor's office or shopping? Answer Date of Assessment Author Status No 10/26/2024 11:48 AM LULUT Jarret Masters RN Active documented as of this encounter Mental Status * Because of a physical, mental, or emotional condition, do you have serious difficulty concentrating, remembering, or making decisions? Answer Entry Date Author Status No 10/26/2024 11:48 AM Jarret Chambers RN Active documented in this encounter Progress Notes * Naima Plummer RN - 12/25/2024 10:12 AM CDT Spoke with petr/SOMMER and she stated that the patient is going to be having a colonoscopy soon(she didn't know exact date). I told the to have the Gi office fax us a request for clearance and we will address if he can come off of his aspirin and plavix at that time. Petr bradford/umer and had no further questions. documented in this encounter Plan of Treatment Upcoming Encounters Date Type Department Care Team (Late st Contact Info) Description 12/29/2024 1:30 PM CDT Appointment [facility] [place] [address] Roc Fulton MD Three [facility] [address] [place] [place], [place] [id number] 12/31/2024 1:30 PM CDT Appointment [facility] [place] [address] Roc Fulton MD [facility] [address] [place] [place], [place] [address] 01/02/2025 1:30 PM CDT Appointment [facility] [place] [address] Roc Fulton MD [facility]. [facility] [address] [place], [place] [id number] 01/05/2025 1:30 PM CDT Appointment [facility] [place] [address] Roc Fulton MD [facility] [address] [place], [place] [id number] 01/07/2025 1:30 PM CDT Appointment [facility] [place] [address] Roc Fulton MD [facility] [address] [place], [place] [address] 01/09/2025 1:30 PM CDT Appointment [facility] [address] [place] [address] Roc Fulton MD Three [facility]. [place] [address] [place], [place] [address] 01/12/2025 1:30 PM CDT Appointment [facility] [address] [place] [address] Roc Fulton MD Three [facility]. [facility] [address] [place] [address] 01/14/2025 1:30 PM CDT Appointment [facility] [address] [place] [address] Roc Fulton MD Three [facility]. [facility] [address] [place] [place], [place] [address] 01/16/2025 1:30 PM CDT Appointment [facility] [address] [place] [address] Roc Fulton MD [facility]. [facility] [address] [place] [address] 01/19/2025 1:30 PM CDT Appointment [facility] [address] [place] [address] Roc Fulton MD [facility]. [facility] [address] [place] [address] 01/21/2025 1:30 PM CDT Appointment [facility] [address] [place] [address] Roc Fulton MD [facility]. [facility] [address] [place] [place], [place] [address] 01/23/2025 1:30 PM CDT Appointment [facility] [address] [place] [address] Roc Fulton MD [facility]. [facility] [address] [place] [place], [place] [address] 01/26/2025 1:30 PM CDT Appointment [facility] [address] [place], [place] [address] [address] Roc Fulton MD [facility]. [facility] [address] [place] [place], [place] [address] 01/28/2025 1:30 PM CDT Appointment [facility] [place] [address] Roc Fulton MD [facility]. [address] [address] 01/30/2025 1:30 PM CDT Appointment [facility] [place] [address] Roc Fulton MD Three [facility]. [facility] [address] [place], [place] [address] 02/02/2025 1:30 PM CDT Appointment [facility] [address] [place] [address] Roc Fulton MD [facility] [address] [place] [place], [place] [address] 02/03/2025 11:00 AM CDT Office Visit [facility] Multispecialty Care - [facility] [address] [facility], [address] [place] [address] Nathan Lechuga MD 3 [facility] [place] [address] 02/04/2025 1:30 PM CDT Appointment [facility] [address] [place] [address] Roc Fulton MD [facility]. [facility] [address] [place], [place] [address] 02/06/2025 1:30 PM CDT Appointment [facility] [address] [place] [address] Roc Fulton MD [facility]. [address] [address] 02/09/2025 1:30 PM CDT Appointment [facility] [address] [place] [address] Roc Fulton MD [facility]. [place] [address] [place] [address] 02/11/2025 1:30 PM CDT Appointment [facility] [address] [place] [address] Roc Fulton MD [facility]. [facility] [address] [place], [place] [address] 02/13/2025 1:30 PM CDT Appointment [facility] [address] [place] [address] Roc Fulton MD [facility]. [place] [address] [place], [place] [address] 02/16/2025 1:30 PM CDT Appointment [facility] [address] [place] [address] Roc Fulton MD [facility]. [place] [address] [place], [place] [address] 02/18/2025 1:30 PM CDT Appointment [facility] [address] [place] [address] Roc Fulton MD [facility]. [place] [address] [place], [place] [address] 02/20/2025 1:30 PM CDT Appointment [facility] [address] [place] [address] Roc Fulton MD [facility]. [facility] [address] [place], [place] [address] 02/25/2025 1:30 PM CDT Appointment [facility] [place] [address] Roc Fulton MD [facility]. [facility] [address] [place], [place] [address] 02/27/2025 1:30 PM CDT Appointment [facility] [address] [place] [address] Roc Fulton MD [facility]. [facility] [address] [place], [place] [address] 03/02/2025 1:30 PM CDT Appointment [facility] [address] [place] [address] Roc Fulton MD [facility]. [place] [address] [place] [address] 03/04/2025 1:30 PM CDT Appointment [facility] [address] [place] [address] [place] [address] Roc Fulton MD [facility]. [place] [address] [place] [address] 03/06/2025 1:30 PM CDT Appointment [facility] [address] [place] [address] [address] [place] [address] Roc Fulton MD [facility]. [facility] [address] [place] [address] 03/09/2025 1:30 PM CDT Appointment [facility] [address] [place] [address] [place] [address] Roc Fulton MD [facility]. [place] [address] [place] [address] 03/18/2025 2:30 PM CDT Office Visit Carlene Sofia-Tabor [facility], [place] [address] [place] [address] Roc Fulton MD [facility]. [place] [address] [place] [place], [place] [address] 05/11/2025 2:40 PM UNHAIRER Office Visit [facility] Medical Group Diabetes and Endocrinology - [address] [phone] Hannah Garrison MD [address] [place] [address] [place] [address] documented as of this encounter Goals Goal Patient Goal Type Associated Problems Recent Progress Patient-Stated? Author Patient will return to prior living situation and remain independent in ADLs upon discharge from hospital General No Diana Todd, public health policy analyst - family caregiver with be involved in care transitions and discharge planning General No Nicole Cole, RN Safety Patient/family will have appropriate support at home upon discharge General No Ayleen Garcia, FULL TIME PARAMEDIC documented as of this encounter Visit Diagnoses Not on filedocumented in this encounter Additional Health Concerns Assessment Noted Time PHQ-9 Depression Total Score: 0 11/19/19 22 3:11 PM CDT documented as of this encounter Care Teams Equal Opportunity Officer Relationship Specialty Start Date End Date Adrienne Marin MD [address] [place] [id number] PCP - General INTERNAL MEDICINE 05/09/24 Gladys Sanchez MD [employer] CARDIOVASCULAR DISEASE 05/28/19 documented as of this encounter
--- OUTSIDE RECORDS SUMMARY | 2024-12-25 10:29 | XMS_ITS | Encounter Summary ---
Author Organization [facility] Address [facility] [place] [address] Care Team Providers Care Ammonia Refrigeration Worker Name Role Phone Adrian Lee MD Primary Care Provider [phone] Gladys Sanchez MD Unavailable [phone] Adrienne Marin MD Primary Care Provider Anna Landry RN Unavailable Unavailable Anna Landry RN Unavailable Unavailable Encounter Details Date Type Department Care Team (Late st Contact Info) Description 06/20/2022 Hospital Follow-up Call [facility] [address] [place] [address] Asia Weiner RN Social History [...] Sex Assigned at Male 07/08/2024 7:30 AM SSAS DEVELOPER Legal Sex Male 8:56 PM CDT Gender Identity Male 07/08/2024 7:30 AM SSAS DEVELOPER Sexual Orientation Straight 07/08/2024 7: 30 AM SSAS DEVELOPER COVID-19 Exposure Response Date Recorded In the last 10 days, have yo u been in contact with someone who was confirmed or suspected to have Coronavirus/COVID-19? No / Unsure 06/14/2022 6:51 PM SSAS DEVELOPER documented as of this encounter Functional Status * RETIRED Are you deaf or do you have serious difficulty hearing Answer Date of Assessment Author Status Yes 06/14/2022 7:00 PM SSAS DEVELOPER Activ e * RETIRED Are you blind or do you have serious difficulty seeing, even when wearing glasses? Answer Date of Assessment Author Status No 06/14/2022 7:00 PM SSAS DEVELOPER Activ e * Do you have serious difficulty walking or climbing stairs? Answer Date of Assessment Author Status No 06/14/2022 7:00 PM SSAS DEVELOPER Cathy Giles RN Active * Do you have difficulty dressing or bathing? Answer Date of Assessment Author Status No 06/14/2022 7:00 PM Cathy Osuna RN Active * Because of a physical, mental, or emotional condition, do you have difficulty doing errands alone such as visiting a doctor's office or shopping? Answer Date of Assessment Author Status No 06/14/2022 7:00 PM SSAS DEVELOPER Cathy Giles RN Active documented as [...] Info) Description 12/29/2024 1:30 PM CDT Appointment [facility] [address] [place] [address] Roc Fulton MD [facility] [address] [place], [place] [address] 12/31/2024 1:30 PM CDT Appointment [facility] [address] [place] [address] Roc Fulton MD [facility] [address] [place], [place] [address] 01/02/2025 1:30 PM CDT Appointment [facility] [address] [place] [address] Roc Fulton MD Three [facility]. [facility] [address] [place], [place] [address] 01/05/2025 1:30 PM CDT Appointment [facility] [address] [place] [address] Roc Fulton MD Three [facility]. [facility] [address] [place] [address] 01/07/2025 1:30 PM CDT Appointment [facility] [address] [place] [address] Roc Fulton MD Three [facility]. [facility] [address] [place], [place] [address] 01/09/2025 1:30 PM CDT Appointment [facility] [address] [place] [address] Roc Fulton MD Three [facility]. [facility] [address] [place] [address] 01/12/2025 1:30 PM CDT Appointment [facility] [address] [place] [address] Roc Fulton MD Three [facility]. [facility] [address] [place] [address] 01/14/2025 1:30 PM CDT Appointment [facility] [address] [place] [address] Roc Fulton MD Three [facility]. [place] [address] [place], [place] [address] 01/16/2025 1:30 PM CDT Appointment [facility] [address] [place], [place] [address] [place] [address] Roc Fulotn MD Three [facility]. [place] [address] [place], [place] [address] 01/19/2025 1:30 PM CDT Appointment [facility] [address] [place] [address] [place] [address] Roc Fulton MD Three [facility]. [facility] [address] [place], [place] [address] 01/21/2025 1:30 PM CDT Appointment [facility] [address] [place] [address] [address] [place] [address] Roc Fulton MD Three [facility]. [facility] [address] [place], [place] [address] 01/23/2025 1:30 PM CDT Appointment [facility] [address] [place] [address] [place] [address] Roc Fulton MD Three [facility]. [facility] [address] [place], [place] [address] 01/26/2025 1:30 PM CDT Appointment [facility] [address] [place] [address] [place] [address] Roc Fulton MD Three [facility]. [facility] [address] [place], [place] [address] 01/28/2025 1:30 PM CDT Appointment [facility] [address] [place] [address] Roc Fulton MD Three [facility]. [address] [address] 01/30/2025 1:30 PM CDT Appointment [facility] [address] [place] [address] Roc Fulton MD Three [address] [address] 02/02/2025 1:30 PM CDT Appointment [facility] [address] [place] [address] Roc Fulton MD [address] [address] 02/03/2025 11:00 AM CDT Office Visit [facility] Medical Group Multispecialty Care - [facility] [address] [facility], [address] [place] [address] Nathan Lechuga MD [address] [place] [address] 02/04/2025 1:30 PM CDT Appointment [facility] [place] [address] Roc Fulton MD Three [address] [address] 02/06/2025 1:30 PM CDT Appointment [facility] [address] [place] [address] Roc Fulton MD Three [facility]. [facility] [address] [place], [place] [address] 02/09/2025 1:30 PM CDT Appointment [facility] [address] [place] [address] Roc Fulton MD Three [facility]. [facility] [address] [place], [place] [address] 02/11/2025 1:30 PM CDT Appointment [facility] [address] [place] [place] [address] Roc Fulton MD Three [facility]. [facility] [address] [place], [place] [address] 02/13/2025 1:30 PM CDT Appointment [facility] [place] [address] Roc Fulton MD Three [facility]. [facility] [address] [place], [place] [address] 02/16/2025 1:30 PM CDT Appointment [facility] [place] [address] Roc Fulton MD Three [facility]. [facility] [address] [place], [place] [address] 02/18/2025 1:30 PM CDT Appointment [facility] [address] [place] [address] Roc Fulton MD Three [facility] [address] [place], [place] [address] 02/20/2025 1:30 PM CDT Appointment [facility] [address] [place] [address] Roc Fulton MD Three [facility]. [place] [address] [place] [address] 02/25/2025 1:30 PM CDT Appointment [facility] [address] [place] [address] Roc Fulton MD Three [facility]. [place] [address] [place], [place] [address] 02/27/2025 1:30 PM CDT Appointment [facility] [place] [address] oRc Fulton MD Three [facility]. [facility] [address] [place], [place] [address] 03/02/2025 1:30 PM CDT Appointment [facility] [place] [address] Roc Fulton MD Three [facility] [address] [place], [place] [address] 03/04/2025 1:30 PM CDT Appointment [facility] [place] [address] Roc Fulton MD Three [facility]. [facility] [address] [place] [address] 03/06/2025 1:30 PM CDT Appointment [facility] [place] [address] Roc Fulton MD Three [facility] [address] [place], [place] [address] 03/09/2025 1:30 PM CDT Appointment [facility] [address] [place] [address] [place] [address] Roc Fulton MD Three [facility]. [place] [address] [place] [address] 03/18/2025 2:30 PM CDT Office Visit Carlene [place] THREE [facility], [place] [address] [place], [place] [address] Roc Fulton MD Three [facility]. [place] [address] [place], [place] [address] 05/11/2025 2:40 PM SSAS DEVELOPER Office Visit [facility] Medical Group Diabetes and Endocrinology - [place] [address] [place] [phone] Hannah Garrison MD [facility] [place], [place] [id number] documented as of this encounter Goals Goal Patient Goal Type Associated Problems Recent Progress Patient-Stated? Author Patient will return to prior living situation and remain independent in ADLs upon discharge from hospital General No Diana Todd park keeper - family caregiver with be involved in care transitions and discharge planning General No Nicole Cole RN Safety Patient/family will have appropriate support at home upon discharge General No Ayleen Garcia, HOME CARE GIVER documented as of this encounter Visit Diagnoses Not on filedocumented in this encounter Additional Health Concerns Infection Onset Date Last Indicated Resolved Time Influenza - Seasonal 05/23/2022 05/23/2022 023 12:34 AM SSAS DEVELOPER COVID-19 Rule Out 05/13/2023 05/13/2023 05/13/2023 4:14 PM SSAS DEVELOPER COVID-19 Rule Out 05/13/2023 05/13/2023 05/14/2023 1:35 AM SSAS DEVELOPER COVID-19 Rule Out 07/08/2023 07/08/2023 07/08/2023 5:34 PM SSAS DEVELOPER COVID-19 Rule Out 07/07/2024 07/07/2024 07/07/2024 7:39 AM SSAS DEVELOPER Assessment Noted Time PHQ-9 Depression Total Score: 0 11/19/19 3:11 PM CDT documented as of this encounter Care Teams Ammonia Refrigeration Worker Relationship Specialty Start Date End Date Adrian Lee MD [address] [place] [phone] PCP - General FAMILY PRACTICE 04/22/18 05/08/24 Adrienne Marin MD [address] [place] [address] PCP - General INTERNAL MEDICINE 05/09/24 Gladys Sanchez MD [address] [place] [address] [place] Histological Illustrator CARDIOVASCULAR DISEASE 05/28/19 Anna Landry, montessori teacher (Ambulatory) REGISTERED NURSE 10/29/24 11/02/24 Anna Landry, montessori teacher (Ambulatory) REGISTERED NURSE 11/03/24 11/09/24 documented as of this encounter
--- OUTSIDE RECORDS SUMMARY | 2024-12-25 10:30 | XMS_ITS | Encounter Summary ---
Author Organization [facility] Address formerly [facility] [place] [address] Care Team Providers Care Plate Cutter Name Role Phone Adrian Lee MD Primary Care Provider [phone] Gladys Sanchez MD Unavailable [phone] Adrienne Marin MD Primary Care Provider [phone] Anna Landry RN Unavailable Unavailable Anna Landry RN Unavailable Unavailable Encounter Details Date Type Department Care Team (Late st Contact Info) Description 10/26/2020 Abstract [facility] [address] [place] [id number] Social History Tobacco Use Types Packs/Day [...] Sex Assigned at Male 07/08/2024 7:30 AM CLEAN ROOM TECHNICIAN Legal Sex Male 8:56 PM CDT Gender Identity Male 07/08/2024 7:30 AM CLEAN ROOM TECHNICIAN Sexual Orientation Straight 07/08/2024 7: 30 AM CLEAN ROOM TECHNICIAN COVID-19 Exposure Response Date Recorded In the last month, have you been in contact with someone who was confirmed or suspected to have Coronavirus / COVID-19? No / Unsure 10/02/2020 11:49 AM CDT documented as of this encounter Plan of Treatment Upcoming Encounters Date Type Department Care Team (Late st Contact Info) Description 12/29/2024 1:30 PM CDT Appointment [facility] [place] [address] Roc Fulton MD Three [facility] [address] [place], [place] [id number] 12/31/2024 1:30 PM CDT Appointment [facility] [place] [address] Roc Fulton MD [facility] [address] [place], [place] [id number] 01/02/2025 1:30 PM CDT Appointment [facility] [place] [address] Roc Fulton MD Three [address] [id number] 01/05/2025 1:30 PM CDT Appointment [facility] [place] [address] Roc Fulton MD Three [facility] [address] [place], [place] [id number] 01/07/2025 1:30 PM CDT Appointment [facility] [place] [address] Roc Fulton MD Three [facility] [address] [place], [place] [address] 01/09/2025 1:30 PM CDT Appointment [facility] [address] [place] [address] Roc Fulton MD Three [facility] [place] [address] [place], [place] [address] 01/12/2025 1:30 PM CDT Appointment [facility] [address] [place] [address] Roc Fulton MD Three [facility] [place] [address] [place], [place] [id number] 01/14/2025 1:30 PM CDT Appointment [facility] [address] [place], [place] [address] [address] Roc Fulton MD Three [facility] [address] [place], [place] [address] 01/16/2025 1:30 PM CDT Appointment [facility] [place] [address] Roc Fulton MD Three [facility] [address] [place], [place] [address] 01/19/2025 1:30 PM CDT Appointment [facility] [address] [place] [address] Roc Fulton MD Three [facility] [address] [place], [place] [id number] 01/21/2025 1:30 PM CDT Appointment [facility] [address] [place] [address] Roc Fulton MD Three [facility] [address] [place], [place] [id number] 01/23/2025 1:30 PM CDT Appointment [facility] [address] [place] [address] Roc Fulton MD Three [facility] [address] [place], [place] [address] 01/26/2025 1:30 PM CDT Appointment [facility] [address] [place] [address] Roc Fulton MD Three [facility] [address] [place], [place] [address] 01/28/2025 1:30 PM CDT Appointment [facility] [place] [address] Roc Fulton MD Three [facility] [address] [place] [address] 01/30/2025 1:30 PM CDT Appointment [facility] [address] [place] [address] Roc uFlton MD Three [facility] [address] [place] [address] 02/02/2025 1:30 PM CDT Appointment [facility] [place] [address] Roc Fulton MD Three [facility] [address] [place], [place] [address] 02/03/2025 11:00 AM CDT Office Visit [facility] - [facility] [address] [facility], [address] [place] [address] Nathan Lechuga MD [address] [place] [address] 02/04/2025 1:30 PM CDT Appointment [facility] [address] [facility] [place] [address] Roc Fulton MD Three [facility] [address] [address] 02/06/2025 1:30 PM CDT Appointment [facility] [address] [place] [address] [place] [address] Roc Fulton MD Three [facility] [address] [address] 02/09/2025 1:30 PM CDT Appointment [facility] [address] [place] [address] Roc Fulton MD Three [facility] [address] [address] 02/11/2025 1:30 PM CDT Appointment [facility] [address] [place] [address] Roc Fulton MD Three [facility] [address] [address] 02/13/2025 1:30 PM CDT Appointment [facility] [address] [place] [address] Roc Fulton MD Three [facility] [address] [address] 02/16/2025 1:30 PM CDT Appointment [facility] [address] [place] [address] Roc Fulton MD Three [facility] [place] [address] [place], [place] [address] 02/18/2025 1:30 PM CDT Appointment [facility] [place] [address] Roc Fulton MD Three [facility] [place] [address] [place], [place] [address] 02/20/2025 1:30 PM CDT Appointment [facility] [place] [address] Roc Fulton MD Three [facility] [place] [address] [place], [place] [address] 02/25/2025 1:30 PM CDT Appointment [facility] [place] [address] Roc Fulton MD Three [facility] [address] [place], [place] [address] 02/27/2025 1:30 PM CDT Appointment [facility] [address] [place] [address] Roc Fulton MD Three [facility] [place] [address] [place], [place] [address] 03/02/2025 1:30 PM CDT Appointment [facility] [place] [address] Roc Fulton MD Three [facility] [place] [address] [place] [address] 03/04/2025 1:30 PM CDT Appointment [facility] [address] [place] [address] [address] [place] [address] Roc Fulton MD Three [facility] [place] [address] [place], [place] [address] 03/06/2025 1:30 PM CDT Appointment [facility] [address] [place] [address] [address] [place] [address] Roc Fulton MD Three [facility] [address] [place], [place] [address] 03/09/2025 1:30 PM CDT Appointment [facility] [address] [place] [address] [address] [place] [address] Roc Fulton MD Three [facility] [address] [place], [place] [address] 03/18/2025 2:30 PM CDT Office Visit [facility] THREE [facility] [place] [address] [place], [place] [address] Roc Fulton MD Three [facility] [address] [place], [place] [address] 05/11/2025 2:40 PM CLEAN ROOM TECHNICIAN Office Visit [facility] Diabetes and Endocrinology - [address] [address] Hannah Garrison MD [address] [place] [id number] documented as of this encounter Visit Diagnoses Not on filedocumented in this encounter Additional Health Concerns Infection Onset Date Last Indicated Resolved Time COVID-19 Rule Out 07/19/2021 07/19/2021 07/19/2021 9:17 PM CLEAN ROOM TECHNICIAN COVID-19 Rule Out 07/19/2021 07/19/2021 07/20/2021 7:01 PM CLEAN ROOM TECHNICIAN COVID-19 Rule Out 08/18/2021 08/18/2021 08/18/2021 12:03 PM CLEAN ROOM TECHNICIAN COVID-19 Confirmed 08/18/2021 08/18/2021 12:32 AM CDT COVID-19 Rule Out 09/13/2021 09/13/2021 09/13/2021 5:00 AM CDT COVID-19 Rule Out 05/23/2022 05/23/2022 05/23/2022 3:38 PM CLEAN ROOM TECHNICIAN Influenza - Seasonal 05/23/2022 05/23/2022 023 12:34 AM CLEAN ROOM TECHNICIAN COVID-19 Rule Out 05/13/2023 05/13/2023 05/13/2023 4:14 PM CLEAN ROOM TECHNICIAN COVID-19 Rule Out 05/13/2023 05/13/2023 05/14/2023 1:35 AM CLEAN ROOM TECHNICIAN COVID-19 Rule Out 07/08/2023 07/08/2023 07/08/2023 5:34 PM CLEAN ROOM TECHNICIAN COVID-19 Rule Out 07/07/2024 07/07/2024 07/07/2024 7:39 AM CLEAN ROOM TECHNICIAN documented as of this encounter Care Teams Plate Cutter Relationship Specialty Start Date End Date Adrian Lee MD [address] [place] [address] PCP - General FAMILY PRACTICE 04/22/18 05/08/24 Adrienne Marin MD [address] [place] [address] PCP - General INTERNAL MEDICINE 05/09/24 Gladys Sanchez MD [address] [place] [address] Mcdonald Trim Attacher CARDIOVASCULAR DISEASE 05/28/19 Anna Landry, market development manager (Ambulatory) REGISTERED NURSE 10/29/24 11/02/24 nAna Landry, market development manager (Ambulatory) REGISTERED NURSE 11/03/24 11/09/24 documented as of this encounter
--- OUTSIDE RECORDS SUMMARY | 2024-12-25 10:30 | XMS_ITS | Clinical Summary ---
Author Organization [facility] Address [facility] [place] [address] Care Team Providers Care Bereavement Counselor Name Role Phone Gladys Sanchez MD Unavailable [phone] Adrienne Marin MD Primary Care Provider [phone] Allergies Active Allergy Reactions Criticality Noted Date [...] 5-BEVEL PEN NEEDLES 31G X 5 MM [facility] [place] USE TWICE DAILY TO INJECT LANTUS AND VICTOZA 023 Active pantoprazole EC (PROTONIX) 40 MG tablet Take 1 tablet (40 mg total) by mouth daily for 30 days. 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 ([facility]) TAKE 1 TABLET(750 MG) BY MOUTH TWICE DAILY 120 tablet 11 025 Active levETIRAcetam (KEPPRA) 750 MG tabletIndicati ons:Localizati 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 ([facility]) Take 1 tablet (750 mg total) by [...] stent 04/26/2018 Chronic diastolic congestive heart failure ([facility]) 04/26/2018 Type 2 diabetes mellitus wit h stage 3b chronic kidney disease, with long-term current use of insulin ([facility]) 07/19/2017 Hypertension, essential Dyslipidemia CAD (coronary artery disease) Resolved Problems Problem Noted Date Diagnosed Date Resolved Date Respiratory failure ([facility]) 10/26/2024 11/07/2024 Encephalopathy 07/06/2024 11/07/2024 NSTEMI (non-ST elevated myoc ardial infarction) ([facility]) 05/13/2023 11/07/2024 NSTEMI (non-ST elevated myoc ardial infarction) ([facility]) 06/14/2022 05/07/2023 Edema, unspecified type 03/20/202210/23 Hypokalemia 01/09/2022 05/07/2023 Diabetes mellitus without co mplication ([facility]) 01/09/2022 04/01/2022 Intracranial bleed ([facility]) 10/09/2021 11/18/2021 Dizziness 10/08/2021 11/18/2021 Acute respiratory failure ([facility]) 08/18/2021 11/18/2021 Pneumonia due to COVID-19 virus [...] - 12/19/2024 11:59 PM CDT Hospital Encounter [facility] [address] [place] [address] Roc Fulton MD Discharge Disposition: Home or Self Care (Routine Discharge) 12/19/2024 Telephone [facility], [address] [address] Anders Palacio NP Lab Order 12/19/2024 Travel 12/17/2024 1:04 PM CDT - 12/17/2024 11:59 PM CDT Hospital Encounter [facility] [address] [place] [address] Roc Fulton MD Discharge Disposition: Home or Self Care (Routine Discharge) 12/16/2024 2:30 PM CDT Office Visit [facility], [address] [address] Anders Palacio NP Follow Up (1 month) 12/16/2024 Travel 12/15/2024 1:04 PM CDT - 12/15/2024 11:59 PM CDT Hospital Encounter [facility] [address] [place] [address] [place] [address] Roc Fulton MD Discharge Disposition: Home or Self Care (Routine Discharge) 12/15/2024 Travel 12/12/2024 1:00 PM CDT - 12/12/2024 11:59 PM CDT Hospital Encounter [facility] [address] [place] [address] [place] [address] Roc Fulton MD Discharge Disposition: Home or Self Care (Routine Discharge) 12/12/2024 Travel 12/10/2024 12:58 PM CDT - 12/10/2024 11:59 PM CDT Hospital Encounter [facility] [address] [place] [address] [place] [address] Roc Fulton MD Discharge Disposition: Home or Self Care (Routine Discharge) 12/10/2024 Travel 12/05/2024 1:05 PM CDT - 12/05/2024 11:59 PM CDT Hospital Encounter [facility] [address] [place], [place] [address] [place] [address] Roc Fulton MD Discharge Disposition: Home or Self Care (Routine Discharge) 12/05/2024 Travel 12/03/2024 12:59 PM CDT - 12/03/2024 11:59 PM CDT Hospital Encounter [facility] [address] [place] [address] [place] [address] Roc Fulton MD Discharge Disposition: Home or Self Care (Routine Discharge) 12/03/2024 Travel 12/01/2024 12:58 PM CDT - 12/01/2024 11:59 PM CDT Hospital Encounter [facility] [address] [facility] [place] [address] Roc Fulton MD Discharge Disposition: Home or Self Care (Routine Discharge) 12/01/2024 Travel 11/28/2024 1:14 PM CDT - 11/28/2024 11:59 PM CDT Hospital Encounter [facility] [address] [place] [address] Roc Fulton MD Discharge Disposition: Home or Self Care (Routine Discharge) 11/28/2024 Travel 11/26/2024 Scan [facility], [address] [place] [address] Scanned, Doc Pccl 11/24/2024 Orders Only [facility], [address] [place] [address] Roc Fulton MD 11/21/2024 Telephone [facility], [address] [place] [address] Roc Fulton MD Cardiac Rehab (Ok to return to cardiac rehab - [place]) 11/18/2024 2:45 PM CDT Office Visit [facility], [address] [place] [address] Anders Palacio NP Follow Up (3 week hospital follow up) 11/18/2024 Travel 11/13/2024 Results Follow-Up [facility], [address] [place] [address] Naima Plummer, RN BASIC METABOLIC PANEL, LIPID PANEL, COMPREHENSIVE METABOLIC PANEL, Additional followed-up results: 3 11/13/2024 Abstract [facility], [address] [place] [address] Joya Carolina MA 11/10/2024 Patient Outreach [facility] [address] [place] [address] Anna Landry, [facility] Follow Up ([facility] 10/26/24-10/30/24) 11/07/2024 2:40 PM CDT Office Visit [facility] Medical Group Diabetes and Endocrinology - [place] [address] [place] [address] Hannah Garrison MD Type 2 Diabetes 11/07/2024 Travel 11/07/2024 Telephone [facility], [facility] [address] [place] [address] Anders Palacio, E BUSINESS CONSULTANT Advise 10/31/2024 Hospital Follow-up Call [facility] [place] [address] Niesha Love LPN Follow Up Call ([facility] 10/26-10/30/24) 10/31/2024 Patient Outreach [facility], [address] [address] Anna Landry, [facility] ([facility] 10/26/24 - 10/30/24) 10/30/2024 Orders Only [facility], [address] [address] Roc Fulton MD 10/29/2024 Travel 10/29/2024 Patient Outreach [facility], [address] [address] Anna Landry, [facility] Follow Up ([facility] Admission notification ) 10/28/2024 Travel 10/26/2024 12:49 AM CDT - 10/30/2024 12:31 PM CDT Hospital Encounter [facility] [place] [address] Lloyd Whitten MD Suresh, MD Jayla Alarcon Kandace C, MD McGowen, Payton K, MD Discharge Disposition: Home or Self Care (Routine Discharge) 10/24/2024 1:28 PM CDT - 10/24/2024 11:59 PM CDT Hospital Encounter [facility] [address] [place] [address] [place] [address] Adrienne Marin MD Discharge Disposition: Home or Self Care (Routine Discharge) 10/24/2024 Travel 10/22/2024 1:21 PM CDT - 10/22/2024 11:59 PM CDT Hospital Encounter [facility] [address] [place] [address] [place] [address] Adrienne Marin MD Discharge Disposition: Home or Self Care (Routine Discharge) 10/22/2024 Travel 10/20/2024 1:22 PM CDT - 10/20/2024 11:59 PM CDT Hospital Encounter [facility] [address] [place] [address] [place] [address] Adrienne Marin MD Discharge Disposition: Home or Self Care (Routine Discharge) 10/20/2024 Travel 10/17/2024 1:18 PM CDT - 10/17/2024 11:59 PM CDT Hospital Encounter [facility] [place] [address] Adrienne Marin MD Discharge Disposition: Home or Self Care (Routine Discharge) 10/17/2024 Travel 10/13/2024 1:23 PM CDT - 10/13/2024 11:59 PM CDT Hospital Encounter [facility] [place] [address] Adrienne Marin MD Discharge Disposition: Home or Self Care (Routine Discharge) 10/13/2024 Telephone [facility] Medical Group [facility] [place] [id number] REPLACED BY [facility] [address] [place] [address] Nathan Lechuga MD Medication 10/13/2024 Travel 10/13/2024 MyChart Message Enc [facility] Medical Group Call Center [address] [place] [phone] [facility] Provider levETIRAcetam (KEPPRA) 750 MG tablet 10/10/2024 1:28 PM CDT - 10/10/2024 11:59 PM CDT Hospital Encounter [facility] [address] [facility] [place] [address] Adrienne Marin MD Discharge Disposition: Home or Self Care (Routine Discharge) 10/10/2024 Travel 10/08/2024 1:21 PM CDT - 10/08/2024 11:59 PM CDT Hospital Encounter [facility] [address] [place] [address] [address] Adrienne Marin MD Discharge Disposition: Home or Self Care (Routine Discharge) 10/08/2024 Travel 10/03/2024 1:29 PM CDT - 10/03/2024 11:59 PM CDT Hospital Encounter [facility] [address] [place] [address] Adrienne Marin MD Discharge Disposition: Home or Self Care (Routine Discharge) 10/03/2024 Travel 10/01/2024 1:18 PM CDT - 10/01/2024 11:59 PM CDT Hospital Encounter [facility] [address] [place] [address] [address] Adrienne Marin MD Discharge Disposition: Home or Self Care (Routine Discharge) 10/01/2024 Travel 09/29/2024 1:19 PM CDT - 09/29/2024 11:59 PM CDT Hospital Encounter [facility] [address] [place] [address] Adrienne Marin MD Discharge Disposition: Home or Self Care (Routine Discharge) 09/29/2024 Travel 09/26/2024 1:25 PM CDT - 09/26/2024 11:59 PM CDT Hospital Encounter [facility] [place] [address] Adrienne Marin MD Discharge Disposition: Home or Self Care (Routine Discharge) 09/26/2024 Travel from Last 3 Months Immunizations Immunization [...] drink = 0.6 oz pur e alcohol) [facility] Utilities Answer Date Recorded In the past 12 months has e [employer], gas, oil, or water [employer] threatened to shut off services in your [...] any time in the past 12 m [facility], were you homeless or living in a fdc (including now)? No 10/26/2024 Sex and Gender Information Value Date Recorded Sex Assigned at Male 07/08/2024 7:30 AM BOX [employer]ER P[employer]ER[employer] Legal Sex Male 8:56 PM CDT Gender Identity Male 07/08/2024 7:30 AM BOX MAKER P[employer]ERBOARD Sexual Orientation Straight 07/08/2024 7: 30 AM BOX MAKER PAPERBOARD Last Filed Vital Signs Vital Sign Reading [...] Info) Description 12/29/2024 1:30 PM CDT Appointment [facility] [place] [address] Roc Fulton MD [facility] [address] [place], [place] [address] 12/31/2024 1:30 PM CDT Appointment [facility] [place] [address] Roc Fulton MD [facility] [address] [place], [place] [address] 01/02/2025 1:30 PM CDT Appointment [facility] [place] [address] Roc Fulton MD [facility] [address] [place], [place] [address] 01/05/2025 1:30 PM CDT Appointment [facility] [place] [address] Roc Fulton MD [facility] [place] [address] [place], [place] [address] 01/07/2025 1:30 PM CDT Appointment [facility] [address] [place] [address] Roc Fulton MD Three [facility]. [place] [address] [place], [place] [address] 01/09/2025 1:30 PM CDT Appointment [facility] [address] [place] [address] Roc Fulton MD Three [facility]. [facility] [address] [place] [address] 01/12/2025 1:30 PM CDT Appointment [facility] [place] [address] Roc Fulton MD Three [facility]. [facility] [address] [place], [place] [address] 01/14/2025 1:30 PM CDT Appointment [facility] [place] [address] Roc Fulton MD Three [facility]. [facility] [address] [place] [address] 01/16/2025 1:30 PM CDT Appointment [facility] [place] [address] Roc Fulton MD Three [facility]. [facility] [address] [place] [address] 01/19/2025 1:30 PM CDT Appointment [facility] [place] [address] Roc Fulton MD [facility]. [place] [address] [place], [place] [address] 01/21/2025 1:30 PM CDT Appointment [facility] [address] [place] [address] [address] [place], [place] [address] Roc Fulton MD [facility]. [place] [address] [place], [place] [address] 01/23/2025 1:30 PM CDT Appointment [facility] [address] [place] [address] [address] [place] [address] Roc Fulton MD Three [facility]. [facility] [address] [place], [place] [address] 01/26/2025 1:30 PM CDT Appointment [facility] [address] [place] [address] [address] [place] [address] Roc Fulton MD Three [facility]. [facility] [address] [place], [place] [address] 01/28/2025 1:30 PM CDT Appointment [facility] [address] [place] [address] [address] [place] [address] Roc Fulton MD Three [facility]. [facility] [address] [place], [place] [address] 01/30/2025 1:30 PM CDT Appointment [facility] [address] [place] [address] Roc Fulton MD Three [facility] [address] [place], [place] [address] 02/02/2025 1:30 PM CDT Appointment [facility] [address] [place] [address] Roc Fulton MD Three [facility]. [place] [address] [place], [place] [address] 02/03/2025 11:00 AM CDT Office Visit [facility] Medical Group [facility] [address] [facility], [address] [place] [address] Nathan Lechuga MD [address] [facility] [place] [address] 02/04/2025 1:30 PM CDT Appointment [facility] [address] [facility] [place] [address] Roc Fulton MD Three [facility]. [facility] [address] [place] [address] 02/06/2025 1:30 PM CDT Appointment [facility] [address] [place] [address] Roc Fulton MD Three [facility]. [facility] [address] [place] [address] 02/09/2025 1:30 PM CDT Appointment [facility] [address] [place] [address] Roc Fulton MD Three [facility]. [facility] [address] [place], [place] [address] 02/11/2025 1:30 PM CDT Appointment [facility] [address] [place] [address] Roc Fulton MD Three [facility] [address] [place], [place] [address] 02/13/2025 1:30 PM CDT Appointment [facility] [address] [place] [address] Roc Fulton MD Three [facility]. [place] [address] [place], [place] [address] 02/16/2025 1:30 PM CDT Appointment [facility] [address] [place] [address] Roc Fulton MD Three [facility]. [facility] [address] [place] [address] 02/18/2025 1:30 PM CDT Appointment [facility] [address] [place] [address] Roc Fulton MD Three [facility]. [facility] [address] [place], [place] [address] 02/20/2025 1:30 PM CDT Appointment [facility] [address] [place] [address] Roc Fulton MD Three [facility]. [facility] [address] [place] [address] 02/25/2025 1:30 PM CDT Appointment [facility] [address] [place] [address] Roc Fulton MD Three [facility]. [facility] [address] [place] [address] 02/27/2025 1:30 PM CDT Appointment [facility] [address] [place] [address] Roc Fulton MD Three [facility]. [place] [address] [place], [place] [address] 03/02/2025 1:30 PM CDT Appointment [facility] [address] [place] [address] Roc Fulton MD Three [facility]. [place] [address] [place], [place] [address] 03/04/2025 1:30 PM CDT Appointment [facility] [address] [place] [address] [place] [address] Roc Fulton MD Three [facility]. [facility] [address] [place] [address] 03/06/2025 1:30 PM CDT Appointment [facility] [address] [place] [address] [address] [place] [address] Roc Fulton MD Three [facility]. [facility] [address] [place], [place] [address] 03/09/2025 1:30 PM CDT Appointment [facility] [address] [place] [address] [address] [place] [address] Roc Fulton MD Three [facility]. [place] [address] [place], [place] [address] 03/18/2025 2:30 PM CDT [facility], [address] [place], [place] [address] Roc Fulton MD Three [facility]. [place] [address] [place], [place] [address] 05/11/2025 2:40 PM BOX MAKER PAPERBOARD Office Visit [facility] Medical Group Diabetes and Endocrinology - [place] [address] [place] [address] Hannah Garrison MD [address] [facility] [place], [place] [address] Health Maintenance Due Date Last Done Comments ASCVD Statin 1950 Diabetes: Retinopathy Eye Exam 1970 Hepatitis C 1970 DTaP, Tdap and Td Vaccines (1 - Tdap) 10/24/1971 Zoster Vaccines (1 of 2) 2002 RSV Immunization or 60+ Years (1 - Risk 60-74 years 1-dose series) 2012 Annual Medicare Wellness Visit 2017 COVID-19 Vaccine ( season) 2024 10/01/2020, 09/01/2020 PHQ-2 (Physician [place]) 06/25/2024 05/09/2024 Kidney Health Evaluation 04/25/2025 04/25/2024 [...] discharge from hospital General No Diana Todd, electronic funds transfer coordinator - family caregiver with be involved in care transitions and discharge planning General No Nicole Cole RN Safety Patient/family will have appropriate support at home upon discharge General No Walter Garciaia C, TIMBER MANAGEMENT SPECIALIST Procedures Procedure Name Priority Date/Time Associated Diagnosis [...] Recently Relevant to Health Maintenance Results * CBC (OUTSIDE LAB) (12/23/2024) Pathologist [facility] WBC 5.8 HGB 10.2 HCT 32.5 PLT 156 12/23/2024 us Default History Genericprovider LAB-OUTSIDE/ABST RACTED Final Result * (ABNORMAL) COMPREHENSIVE METABOLIC PANEL (11/26/2024) Only the most recent of6 resultswithin the time period is included. Pathologist [facility] SODIUM S/P/B 142 GLUCOSE 178 mg/dL BUN 34 CREATININE S/P/B 1.68(A) 0.7 - 1.3 CALCIUM S/P/B 8.7 POTASSIUM S/P/B 3.5 CHLORIDE S/P/B 105 GFR ESTIMATE 43 us Default History Genericprovider LABORATORY Edited Result - Final * LIPID PANEL (11/26/2024) Pathologist [facility] CHOLESTEROL 129 TRIGLYCERIDES 75 HDL 48 LDL (CALCULATED) 65 NON HDL CHOLESTEROL 81 us Default History Genericprovider LABORATORY Edited Result - Final * (ABNORMAL) BASIC METABOLIC PANEL (11/05/2024) Pathologist [facility] SODIUM S/P/B 140 POTASSIUM S/P/B 3.6 CO2 21 CHLORIDE S/P/B 109 GLUCOSE 114 mg/dL CALCIUM S/P/B 8.8 BUN 30 CREATININE S/P/B 1.84(A) 0.7 - 1.3 GFR ESTIMATE 36 11/05/2024 Default History Genericprovider LABORATORY Final Result * BNP (11/03/2024) [facility] B TYPE NATRIURETIC PEPTIDE 383 Result [facility] * CBC, MANUAL DIFF (11/03/2024) [facility] WBC 9.8 HGB 9.7 HCT 31.6 PLT 162 Result Critical access hospital History Genericprovider LABORATORY Final Result * THYROXINE, FREE (FT4) (11/03/2024) [facility] FREE T4 1.0 Result Critical access hospital History Genericprovider LABORATORY Final Result * THYROID STIM HORMONE TSH (11/03/2024) [facility] TSH 6.76 [facility] * IRON (11/03/2024) [facility] IRON 23 50 - 180 11/03/2024 Result [facility] Genericprovider LABORATORY Final Result * FERRITIN (11/03/2024) [facility] FERRITIN 184 24 - 380 11/03/2024 [facility] Final Result * (ABNORMAL) POCT glucose (10/30/2024 11:38 AM CDT) Only the most recent of18 resultswithin the time period is included. [facility] GLUCOSE POC 197(H) 70 - 99 mg/dL 10/30/2024 11:47 AM CDT [facility] 10/30/2024 11:3 8 AM CDT Kendal Harvey MD POCT ORDERABLES - DEVICE Fin al Result [facility] [address] [place] [address], * (ABNORMAL) CBC W/DIFF AUTOMATED (10/30/2024 4:55 AM CDT) Only the most recent of5 resultswithin the time period is included. WBC 7.82 4.5 - 11.0 x10'3/uL 10/30/2024 5:43 AM CDT [facility] RBC 3.23(L) 4.70 - 6.10 x10'6/uL 10/30/2024 5:43 AM CDT [facility] HGB 9.5(L) 14.0 - 18.0 G/DL 10/30/2024 5:43 AM CDT [facility] HCT 28.7(L) 43.0 - 54.0 % 10/30/2024 5:43 AM CDT [facility] MCV 88.9 80.0 - 94.0 FL 10/30/2024 5:43 AM CDT [facility] MCH 29.4 27.0 - 31.0 PG 10/30/2024 5:43 AM CDT [facility] MCHC 33.1 32.0 - 36.0 G/DL 10/30/2024 5:43 AM CDT [facility] RDW 14.7(H) 11.5 - 14.5 % 10/30/2024 5:43 AM CDT [facility] PLT 161 130 - 400 x10'3/uL 10/30/2024 5:43 AM CDT [facility] MPV 12.8(H) 9.3 - 12.2 FL 10/30/2024 5:43 AM CDT [facility] DIFFERENTIAL TYPE AUTOMATED DIFFERENTIAL 10/30/2024 5:43 AM CDT [facility] NEUTROPHILS % 71.2 % 10/30/2024 5:43 AM CDT [facility] LYMPHOCYTES % 8.4 % 10/30/2024 5:43 AM CDT [facility] MONOCYTES % 10.9 % 10/30/2024 5:43 AM CDT [facility] EOSINOPHILS 7.2 % 10/30/2024 5:43 AM CDT [facility] BASOPHILS 0.8 % 10/30/2024 5:43 AM CDT [facility] IMMATURE GRANS % 1.5 % 10/31/19 5:43 AM CDT [facility] ABS. NEUTROPHILS 5.57 1.80 - 7.70 x10'3/uL 10/30/2024 5:43 AM CDT [facility] ABS. LYMPHOCYTES 0.66(L) 1.00 - 4.80 x10'3/uL 10/30/2024 5:43 AM CDT [facility] ABS. MONOCYTES 0.85(H) 0.30 - 0.82 x10'3/uL 10/30/2024 5:43 AM CDT [facility] ABS. EOSINOPHILS 0.56(H) 0.04 - 0.54 x10'3/uL 10/30/2024 5:43 AM CDT [facility] ABS. BASOPHILS 0.06 0.01 - 0.08 x10'3/uL 10/30/2024 5:43 AM CDT [facility] ABS. IMMATURE GRANULOCYTES 0.12 0.00 - 0.49 x10'3/uL 10/30/2024 5:43 AM CDT [facility] 10/30/2024 4:55 AM CDT Shana TAN LABORATORY Final Result [facility] [address] [place] [address], [place] [phone] * CLOSTRIDIUM DIFFICILE (10/29/2024 9:37 PM CDT) [facility] GD ANTIGEN NEGATIVE NEGATIVE 10/30/2024 7:49 AM CDT [facility] C DIFFICILE TOXIN A&B (STOOL) NEGATIVE NEGATIVE 10/30/2024 7:49 AM CDT [facility] COMMENT [facility] NEGATIVE/TOXI N A & B NEGATIVE: NEGATIVE FOR TOXIGENIC C. DIFFICILE. 10/30/2024 7:49 AM CDT [facility] STOOL SPECIMEN / Unknown 10/29/2024 9:37 PM CDT Kendal Harvey MD BODY FLUIDS AND STOOLS ORDER PRECIOUS Final Result [facility] [address] [place] [address], [place] [phone] * (ABNORMAL) PRO-BRAIN NATRIURETIC PEPTIDE (10/29/2024 5:10 AM CDT) [facility] PRO-B TYPE NATRIURETIC PEPTIDE 6,744(H) <125 PG/ML 10/29/2024 3:59 PM CDT [facility] Comment: CUT POINTS ESTABLISHED BY [...] ACUTE CHF. 10/29/2024 5:10 AM CDT Martina Hampton B[employer]BIN [employer] LABORATORY Final Result [facility] [address] [place] [address], * HEPARIN, ANTI XA, UFH (10/28/2024 10:30 AM CDT) Only the most recent of9 resultswithin the time period is included. HEPARIN ANTI XA UFH 0.41 0.30 - 0.70 IU/ML 10/28/2024 11:11 AM CDT [facility] Comment: UFH Therapeutic Anti Xa Ranges: Medical Therapeutic Range: 0.30 - 0.70 IU/mL Cardiac Therapeutic Range: 0.30 - 0.50 IU/mL Neuro Therapeutic Range: 0.20 - 0.40 IU/mL 10/28/2024 10:3 0 AM CDT Rose Dickerson MD LABORATORY Final Resu lt [facility] [address] [place] [address], [place] [phone] * XR CHEST PORTABLE (10/28/2024 3:53 AM [...] 3:54 AM Narrative 10/28/2024 3:56 AM CDT [place] [address] Examination: XR CHEST PORTABLE Exam time: 10/28/2024 [...] Procedure Note Franklin Tipton MD - 10/28/2024 [place] [address] Examination: XR CHEST PORTABLE Exam time: 10/28/2024 [...] By: Franklin Tipton MD, 10/28/2024 3:54 AM Llody Whitten MD GENERAL IMAGING Final Re sult * (ABNORMAL) TROPONIN, QUANT (10/28/2024 3:22 AM CDT) Only the most recent of5 resultswithin the time period is included. TROPONIN I HIGH SENSITIVITY 1,073(HH) <79 ng/L 10/28/2024 4:01 AM CDT [facility] Comment: NOT CALLED PER CRITICAL VALUE POLICY HIGH DOSES OF BIOTIN, TROPONIN-SPECIFIC AUTOANTIBODIES, AND ANTIBODY THERAPY CONTAINING HAMA MAY INTERFERE WITH THIS TEST RESULT. CORRELATION TO CLINICAL HISTORY AND PRESENTATION RECOMMENDED. 10/28/2024 3:22 AM CDT Lloyd Whitten MD LABORATORY Final Re sult [facility] [address] [place] [address], * MAGNESIUM (10/28/2024 3:22 AM CDT) Only the most recent of3 resultswithin the time period is included. [facility] MAGNESIUM 2.1 1.8 - 2.4 MG/DL 10/28/2024 4:04 AM CDT [facility] 10/28/2024 3:22 AM CDT Mervin Price DO LABORATORY Final Result [facility] [address] [place] [address], * (ABNORMAL) ARTERIAL BLOOD GAS (10/28/2024 3:20 AM CDT) Pathologist [facility] PH ARTERIAL 7.49(H) 7.35 - 7.45 10/28/2024 3:31 AM CDT [facility] PCO2 37.0 35.0 - 45.0 MMHG 10/28/2024 3:31 AM CDT [facility] PO2 64.0(L) 83.0 - 108.0 MMHG 10/28/2024 3:31 AM CDT [facility] TOTAL CO2 ARTERIAL 29.3(H) 19.0 - 24.0 MMOL/L 10/28/2024 3:31 AM CDT [facility] BASE EXCESS 4.7(H) 0.0 - 3.0 MMOL/L 10/28/2024 3:31 AM CDT [facility] O2 SATURATION 94 94.0 - 98.0 % 10/28/2024 3:31 AM CDT [facility] BICARB ARTERIAL 28.2(H) 21.0 - 28.0 MMOL/L 10/28/2024 3:31 AM CDT [facility] TRACY TEST TRACY TEST PERFORMED 10/28/2024 3:28 AM CDT [facility] O2 ADMIN ARTERIAL 40 10/28/2024 3:28 AM CDT [facility] DRAW SITE ARTERIAL RT RADIAL 10/28/2024 3:28 AM CDT [facility] 10/28/2024 3:20 AM CDT us Lloyd Whitten MD LABORATORY Final Re sult [facility] [address] [place] [address], * Vancomycin Random Level (10/27/2024 4:24 AM CDT) Only the most recent of2 resultswithin the time period is included. VANCOMYCIN RANDOM 27.7 MCG/ML 10/27/2024 5:09 AM CDT [facility] Comment:NO THERAPEUTIC RANGE AVAILABLE LAST DOSE UNKNOWN LAST DOSE 10/27/2024 4:37 AM CDT [facility] 10/27/2024 4:24 AM CDT Mervin Price DO LABORATORY Final Result [facility] [address] [place] [address], [place] [phone] * USE ECHO 2D FU LTD W CON (10/26/2024 5:00 PM CDT) Anatomical Region Laterality Modality NA Echocardiogram 10/26/2024 4:23 PM CDT Narrative 10/27/2024 7:53 AM CDT Echocardiography Report Pat.Name: KEYANA POOL Milagros Pat.ID: [id number] .Date: 10/26/2024 Refer.MD: [id number] MANNY Bailey EWDPROV EWDPROV Exam Time: 4:23:00 [...] 10/27/2024 Echocardiography Report Pat.Name: KEYANA POOL Pat.ID: [id number] .Date: 10/26/2024 : [id number] MANNY Bailey EWDPROV EWDPROV Exam Time: 4:23:00 PM Study Type:ECHO WITH CARDIAC DOPPLER COMP Height: 65 in Weight: 175 lb BSA: 1.87 m2 Age: 5 1950,74Y Sex: M BP: 170/82 HR: 74 bpm Sonogrphr: CLARK HOGAN Stat.:Inpatient Room: 209 Reason for Study:NSTEMI, Assess [...] Signature> 10/27/2024 07:53 AM Clark Hogan M.D. Clark Hogan MD ECHO Final Resul t * (ABNORMAL) MYCOPLASMA PNEUMONIAE AB (10/26/2024 3:50 AM CDT) M. 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 It does not differentiate between an active or past infection. The clinical diagnosis must be interpreted in conjunction with the clinical signs and symptoms of the patient. M. PNEUMONIAE AB IGM 139 <770 U/mL 10/29/2024 8:11 PM CDT [facility] Comment: Reference Range: <770 U/ml Negative 770-950 [...] symptoms of the patient. Test Performed by [employer] [employer], [address] [place] [address] Zaki Beard M.D., Ph.D., Director of Laboratories , CLIA [id number] 10/26/2024 3:50 AM CDT Lloyd Whitten MD LABORATORY Final Re sult [employer] [facility] [address] [place] [address], [place] [phone] * (ABNORMAL) HEMOGLOBIN, GLYCOSYLATED (10/26/2024 3:50 AM CDT) HGB A1C 8.3(H) <5.7 % 10/26/2024 11:19 AM CDT [facility] Comment: ADA GUIDELINES 2010 5.7 TO 6.4% INCREASED RISK OF DIABETES > OR = 6.5% CONSISTENT WITH DIABETES ESTIMATED AVG GLUCOSE 192 mg/dL 10/26/2024 11:19 AM CDT [facility] 10/26/2024 3:50 AM CDT Lloyd Whitten MD LABORATORY Final Re sult Performing Organization Address City/[facility]/ZIP Co de Phone Number [facility] [address] [place] [address], [place] [phone] * (ABNORMAL) PARTIAL THROMBOPLASTIN TIME,PTT (10/26/2024 3:50 AM CDT) PTT 69.6(H) 25.1 - 36.5 SEC 10/26/2024 4:32 AM CDT [facility] 10/26/2024 3:50 AM CDT Mervin Price DO LABORATORY Final Result [facility] [address] [place] [address], [place] [phone] * (ABNORMAL) PROTIME/INR, VENOUS (10/26/2024 3:50 AM CDT) PROTIME 14.0(H) 10.2 - 12.9 SEC 10/26/2024 4:32 AM CDT [facility] INR 1.2 10/26/2024 4:32 AM CDT [facility] Comment: Recommended INR Therapeutic Goals: 2.0-3.0 Routine Therapy 2.5-3.5 Mechanical Prosthetic Valves (High Risk) 10/26/2024 3:50 AM CDT Mervin Price DO LABORATORY Final Result Performing Organization Address [facility]/ZIP Co de Phone Number [facility] [address] [place] [address], * CULTURE, BACTERIA, BLOOD (10/26/2024 3:50 AM CDT) Only the most recent of2 resultswithin the time period is included. SPEC DESCRIPTION BLOOD 10/26/2024 2:36 AM CDT [facility] SPECIAL REQUESTS NO SPECIAL REQUEST 10/26/2024 2:36 AM CDT [facility] CULTURE RESULT NO GROWTH 5 DAYS 10/31/2024 4:12 AM CDT [facility] BLOOD SPECIMEN OBTAINED FOR BLOOD CULTURE / Unknown 10/26/2024 3:50 AM CDT 10/26/2024 4:01 AM CDT Lloyd Whitten MD MICROBIOLOGY - GENERAL O RDERABLES Final Result Performing Organization Address City/[facility]/ZIP Co de Phone Number [facility] [address] [place] [address], [place] [phone] * STREP PNEUMO AG URINE (10/26/2024 3:49 AM CDT) S. PNEUMONIAE URINARY AG NEGATIVE NEGATIVE 10/26/2024 5:51 PM CDT [facility] URINE SPECIMEN OBTAINED VIA INDWELLING URINARY CATHETER / Unknown 10/26/2024 3:49 AM CDT Lloyd Whitten MD MICROBIOLOGY - GENERAL O RDERABLES Final Result Performing Organization Address City/[facility]/ZIP Co de Phone Number [facility] [address] [place] [address], [place] [phone] * LEGIONELLA AG URINE (10/26/2024 3:49 AM CDT) LEGIONELLA ANTIGEN (URINE) NEGATIVE NEGATIVE 10/26/2024 5:51 PM CDT [facility] URINE SPECIMEN / Unknown 10/26/2024 3:49 AM CDT Lloyd Whitten MD MICROBIOLOGY - GENERAL O RDERABLES Final Result [facility] [address] [place] [address], [place] [phone] * CT CHEST+ABD+PEL WO CON (10/26/2024 3:03 [...] 3:27 AM Narrative 10/26/2024 3:[address]T [address] [address] EXAMINATION: CT Chest, Abdomen, and Pelvis without [...] Procedure Note Megan Lynn MD - 10/26/2024 [facility] [address] [place], [place] [address] EXAMINATION: CT Chest, Abdomen, and Pelvis without [...] By: Megan Lynn MD, 10/26/2024 3:27 AM us Lloyd Whitten MD CT Final Re sult * (ABNORMAL) PROCALCITONIN (PCT) (10/26/2024 2:02 AM CDT) PROCALCITONIN 1.54(H) 0.00 - 0.49 NG/ML 10/26/2024 3:11 AM CDT [facility] 10/26/2024 2:02 AM CDT Lloyd Whitten MD LABORATORY Final Re sult [facility] [address] [place] [address], [place] [phone] * LACTIC ACID - SINGLE (10/26/2024 2:02 AM CDT) LACTIC ACID VENOUS 1.6 0.4 - 2.0 MMOL/L 10/26/2024 2:32 AM CDT [facility] 10/26/2024 2:02 AM CDT Lloyd Whitten MD LABORATORY Final Re sult [facility] [address] [place] [address], [place] [phone] * ECG 12 lead (10/26/2024 1:46 AM CDT) 10/26/2024 1:46 AM CDT Narrative [facility] - 10/26/2024 5:43 AM CDT [address] Test Date: 2024-10-26 Pat Name: KEYANA POOL Department: 40 Room: [id number] Gender: Male Aws Architect: RAVI : 1950 Requested By: LLOYD WHITTEN Order Number: [id number] Tiburcio MD: Clark Hogan Measurements Intervals [place] Rate: 87 P: 51 VA: 156 QRS: -50 QRSD: 156 T: 32 [...] Procedure Note Clark Hogan MD - 10/26/[address] [facility] [facility] Test Date: 2024-10-26 Pat Name: KEYANA POOL Department: 40 Room: [facility] Gender: Male Aws Architect: RAVI : 1950 Requested By: LLOYD WHITTEN Order Number: [id number] Reading MD: Clark Hogan Measurements Intervals [place] Rate: 87 P: 51 VA: 156 QRS: -50 QRSD: 156 T: 32 [...] Whitten MD ECG ORDERABLES Final Re sult [facility] * MRSA SCREENING (10/26/2024 1:15 AM CDT) SPEC DESCRIPTION NASAL 10/26/2024 1:15 AM CDT [facility] SPECIAL REQUESTS NO SPECIAL REQUEST 10/26/2024 1:15 AM CDT [facility] CULTURE RESULT NO METHICILLIN RESISTANT STAPHYLOCOCCUS AUREUS ISOLATED 10/27/2024 6:47 AM CDT [facility] SPECIMEN FROM INTERNAL NOSE / Unknown 10/26/2024 1:15 AM CDT 10/26/2024 1:18 AM CDT Lloyd Whitten MD MICROBIOLOGY - GENERAL O RDERABLES Final Result [facility] [address] [place] [address], * COLONOSCOPY (05/31/2018) us Documents Scanned SCANNING Final Result from Last 3 Months or Most Recently Relevant to Health Maintenance Insurance AET Advance Directives * Full Code (Latest Code [...] 6:58 PM 06/16/2022 3:34 PM Care Teams Bereavement Counselor Relationship Specialty Start Date End Date Adrienne Marin MD [address] [place] [address] PCP - General INTERNAL MEDICINE 05/09/24 Gladys Sanchez MD [employer] CARDIOVASCULAR DISEASE 05/28/19
--- OUTSIDE RECORDS SUMMARY | 2024-12-25 10:30 | XMS_ITS | Encounter Summary ---
Author Organization [facility] Address [address] [place] [address] Care Team Providers Care Rehabilitation Attendant Name Role Phone Pee Lafleur MD Unavailable Unavailable Adrian Lee MD Primary Care Provider [phone] Gladys Sanchez MD Unavailable [phone] Adrienne Marin MD Primary Care Provider [phone] Anna Landry RN Unavailable Unavailable Anna Landry RN Unavailable Unavailable Encounter Details Date Type Department Care Team (Late st Contact Info) Description 11/30/2018 Abstract [facility] CONVERSION [address] [place] [address] , Generic Conversion, Social History Tobacco Use Types Packs/Day Years Used Date Smoking Tobacco: Never Smokeless Tobacco: Never Sex and Gender Information Value Date Recorded Sex Assigned at Male 07/08/2024 7:30 AM FURNITURE MECHANIC Legal Sex Male 8:56 PM CDT Gender Identity Male 07/08/2024 7:30 AM FURNITURE MECHANIC Sexual Orientation Straight 07/08/2024 7: 30 AM FURNITURE MECHANIC documented as of this encounter Plan of Treatment Upcoming Encounters Date Type Department Care Team (Late st Contact Info) Description 12/29/2024 1:30 PM CDT Appointment Cardiop[facility] Rehab [address] [place] [address] Roc Fulton MD [address] [address] 12/31/2024 1:30 PM CDT Appointment [facility] [address] [place] [address] Roc Fulton MD Three [facility] [address] [place], [place] [address] 01/02/2025 1:30 PM CDT Appointment [facility] [place] [address] Roc Fulton MD Three [facility] [address] [place], [place] [address] 01/05/2025 1:30 PM CDT Appointment [facility] [place] [address] Roc Fulton MD Three [facility] [address] [place], [place] [address] 01/07/2025 1:30 PM CDT Appointment [facility] [place] [address] Roc Fulton MD Three [address] [address] 01/09/2025 1:30 PM CDT Appointment [facility] [place] [address] Roc Fulton MD Three [address] [id number] 01/12/2025 1:30 PM CDT Appointment [facility] [place] [address] Roc Fulton MD Three [facility] [address] [place], [place] [address] 01/14/2025 1:30 PM CDT Appointment [facility] [address] [place] [address] Roc Fulton MD Three [facility]. [facility] [address] [place], [place] [address] 01/16/2025 1:30 PM CDT Appointment [facility] [address] [place] [address] Roc Fulton MD Three [facility]. [facility] [address] [place] [address] 01/19/2025 1:30 PM CDT Appointment [facility] [place] [address] Roc Fulton MD Three [facility]. [facility] [address] [place], [place] [address] 01/21/2025 1:30 PM CDT Appointment [facility] [place] [address] Roc Fulton MD Three [facility]. [facility] [address] [place] [address] 01/23/2025 1:30 PM CDT Appointment [facility] [address] [place] [address] Roc Fulton MD Three [facility]. [facility] [address] [place] [address] 01/26/2025 1:30 PM CDT Appointment [facility] [place] [address] Roc Fulton MD Three [facility]. [place] [address] [place], [place] [address] 01/28/2025 1:30 PM CDT Appointment [facility] [address] [facility] [place] [address] Roc Fulton MD Three [facility]. [place] [address] [place], [place] [address] 01/30/2025 1:30 PM CDT Appointment [facility] [address] [facility] [place] [address] Roc Fulton MD Three [facility]. [facility] [address] [place] [address] 02/02/2025 1:30 PM CDT Appointment [place] [facility] [facility] [place] [address] [place] [address] Roc Fulton MD Three [facility] [address] [place], [place] [address] 02/03/2025 11:00 AM CDT Office Visit [facility] Multispecialty Care - [facility] [address] [facility], [address] [place] [address] Nathan Lechuga MD [address] [facility] [place] [address] 02/04/2025 1:30 PM CDT Appointment [facility] [address] [facility] [address] [place] [address] Roc Fulton MD Three [facility] [place] [address] [place] [address] 02/06/2025 1:30 PM CDT Appointment [facility] [address] [place] [address] Roc Fulton MD Three [facility] [address] [place], [place] [address] 02/09/2025 1:30 PM CDT Appointment [facility] [address] [place] [address] Roc Fulton MD Three [facility] [address] [place], [place] [address] 02/11/2025 1:30 PM CDT Appointment [facility] [address] [place] [address] Roc Fulton MD Three [facility] [address] [place], [place] [address] 02/13/2025 1:30 PM CDT Appointment [facility] [place] [address] Roc Fulton MD Three [facility] [address] [place], [place] [address] 02/16/2025 1:30 PM CDT Appointment [facility] [place] [address] Roc Fulton MD Three [facility] [address] [place], [place] [address] 02/18/2025 1:30 PM CDT Appointment [facility] [address] [place] [address] [facility] MD [facility] [address] [place], [place] [address] 02/20/2025 1:30 PM CDT Appointment [facility] [address] [place] [address] Roc Fulton MD Three [facility] [address] [place], [place] [address] 02/25/2025 1:30 PM CDT Appointment [facility] [address] [place] [address] Roc Fulton MD Three [facility] [address] [place], [place] [address] 02/27/2025 1:30 PM CDT Appointment [place] [facility] [place] [address] Roc Fulton MD Three [facility] [address] [place], [place] [address] 03/02/2025 1:30 PM CDT Appointment [facility] [place] [address] Roc Fulton MD Three [facility]. [facility] [address] [place], [place] [address] 03/04/2025 1:30 PM CDT Appointment [place] [facility] [place] [address] Roc Fulton MD Three [facility] [address] [place], [place] [address] 03/06/2025 1:30 PM CDT Appointment [place] [facility] [place] [address] Roc Fulton MD Three [facility] [address] [place] [address] 03/09/2025 1:30 PM CDT Appointment [facility] [address] [facility] [place] [address] Roc Fulton MD Three [facility] [place] [address] [place] [address] 03/18/2025 2:30 PM CDT Office Visit [facility] THREE [facility] [place] [address] [place] [address] Roc Fulton MD Three [facility] [address] [place] [address] 05/11/2025 2:40 PM FURNITURE MECHANIC Office Visit [facility] Diabetes and Endocrinology - [address] [address] Hannah Garrison MD [address] [place] [phone] documented as of this encounter Visit Diagnoses Not on filedocumented in this encounter Additional Health Concerns Infection Onset Date Last Indicated Resolved Time COVID-19 Rule Out 07/19/2021 07/19/2021 07/19/2021 9:17 PM FURNITURE MECHANIC COVID-19 Rule Out 07/19/2021 07/19/2021 07/20/2021 7:01 PM FURNITURE MECHANIC COVID-19 Rule Out 08/18/2021 08/18/2021 08/18/2021 12:03 PM FURNITURE MECHANIC COVID-19 Confirmed 08/18/2021 08/18/2021 12:32 AM CDT COVID-19 Rule Out 09/13/2021 09/13/2021 09/13/2021 5:00 AM CDT COVID-19 Rule Out 05/23/2022 05/23/2022 05/23/2022 3:38 PM FURNITURE MECHANIC Influenza - Seasonal 05/23/2022 05/23/2022 023 12:34 AM FURNITURE MECHANIC COVID-19 Rule Out 05/13/2023 05/13/2023 05/13/2023 4:14 PM FURNITURE MECHANIC COVID-19 Rule Out 05/13/2023 05/13/2023 05/14/2023 1:35 AM FURNITURE MECHANIC COVID-19 Rule Out 07/08/2023 07/08/2023 07/08/2023 5:34 PM FURNITURE MECHANIC COVID-19 Rule Out 07/07/2024 07/07/2024 07/07/2024 7:39 AM FURNITURE MECHANIC documented as of this encounter Care Teams Rehabilitation Attendant Relationship Specialty Start Date End Date Adrian Lee MD [address] [place] [id number] PCP - General FAMILY PRACTICE 04/22/18 05/08/24 Adrienne Marin MD [address] [place] [phone] PCP - General INTERNAL MEDICINE 05/09/24 Pee Lafleur MD [place] Statistical Engineer CARDIOVASCULAR DISEASE 11/02/17 05/27/19 Gladys Sanchez MD [address] [place] [address] [place] [employer] Engineer CARDIOVASCULAR DISEASE 05/28/19 Anna Landry, ems helicopter pilot (Ambulatory) REGISTERED NURSE 10/29/24 11/02/24 Anna Landry ems helicopter pilot (Ambulatory) REGISTERED NURSE 11/03/24 11/09/24 documented as of this encounter
--- OUTSIDE RECORDS SUMMARY | 2024-12-25 10:30 | XMS_ITS | Encounter Summary ---
Author Organization [facility] Address [facility] [place] [address] Care Team Providers Care Power Generation Technician Name Role Phone Adrian Lee MD Primary Care Provider [phone] Gladys Sanchez MD Unavailable [phone] Adrienne Marin MD Primary Care Provider [phone] Anna Landry RN Unavailable Unavailable Anna Landry RN Unavailable Unavailable Encounter Details Date Type Department Care Team (Late st Contact Info) Description 01/24/2023 Abstract [facility] [address] [place] [id number] Flakito Hernandez MD Social History Tobacco Use [...] Sex Assigned at Male 07/08/2024 7:30 AM COMMERCIAL REAL ESTATE MANAGER Legal Sex Male 8:56 PM CDT Gender Identity Male 07/08/2024 7:30 AM COMMERCIAL REAL ESTATE MANAGER Sexual Orientation Straight 07/08/2024 7: 30 AM COMMERCIAL REAL ESTATE MANAGER documented as of this encounter Functional Status * RETIRED Are you deaf or do you have serious difficulty hearing Answer Date of Assessment Author Status Yes 06/14/2022 7:00 PM COMMERCIAL REAL ESTATE MANAGER Activ e * RETIRED Are you blind or do you have serious difficulty seeing, even when wearing glasses? Answer Date of Assessment Author Status No 06/14/2022 7:00 PM COMMERCIAL REAL ESTATE MANAGER Activ e * Do you have serious [...] CDT Appointment [place] [address] Roc Fulton MD [address] [address] 12/31/2024 1:30 PM CDT Appointment [place] [address] Roc Fulton MD [address] [address] 01/02/2025 1:30 PM CDT Appointment [place] [address] Roc Fulton MD Three [facility]. [place] [address] [place], [place] [address] 01/05/2025 1:30 PM CDT Appointment [facility] [address] [place], [place] [address] [place] [address] Roc Fulton MD Three [facility]. [place] [address] [place], [place] [address]349 01/07/2025 1:30 PM CDT Appointment [facility] [address] [place] [address] [place] [address] Roc Fulton MD Three [facility]. [facility] [address] [place], [place] [address]279 01/09/2025 1:30 PM CDT Appointment [facility] [address] [place] [address] [address] [place] [address] Roc Fulton MD Three [facility]. [facility] [address] [place], [place] [address] 01/12/2025 1:30 PM CDT Appointment [facility] [address] [place] [address] [place] [address] Roc Fulton MD Three [facility]. [place] [address] [place], [place] [address] 01/14/2025 1:30 PM CDT Appointment [facility] [address] [place] [address] [place] [address] Roc Fulton MD Three [facility]. [facility] [address] [place], [place] 9[address]39 01/16/2025 1:30 PM CDT Appointment [facility] [address] [place] [address] Roc Fulton MD Three [facility]. [facility] [address] [place], [place] [address]46[address] 01/19/2025 1:30 PM CDT Appointment [facility] [address] [place] [address] Roc Fulton MD Three [facility] [address] [place], [place] [address] 01/21/2025 1:30 PM CDT Appointment [facility] [address] [place] [address] [place] [address] Roc Fulton MD Three [facility] [address] [place], [place] [address] 01/23/2025 1:30 PM CDT Appointment [facility] [address] [place] [address] Roc Fulton MD Three [facility] [address] [place], [place] 9[address]29 01/26/2025 1:30 PM CDT Appointment [facility] [place] [address] Roc Fulton MD Three [facility] [address] [place], [place] [address]3449 01/28/2025 1:30 PM CDT Appointment [facility] [place] [address] Roc Fulton MD Three [facility] [address] [place], [place] 744589 01/30/2025 1:30 PM CDT Appointment [facility] [address] [place] [address] Roc Fulton MD Three [facility]. [facility] [address] [place] [address] 02/02/2025 1:30 PM CDT Appointment [facility] [address] [place] [address] Roc Fulton MD Three [address] [address] 02/03/2025 11:00 AM CDT Office Visit [facility] Multispecialty Care - [facility] [address] [facility], [address] [place] [address] Nathan Lechuga MD 3 [place] [address] 02/04/2025 1:30 PM CDT Appointment [facility] [place] [address] Roc Fulton MD Three [facility]. [address] [address] 02/06/2025 1:30 PM CDT App[facility]ment [facility] [place] [address] Roc Fulton MD Three [facility] [address] [place] [address] 02/09/2025 1:30 PM CDT Appointment [facility] [address] [place] [address] Roc Fulton MD Three [facility]. [place] [address] [place], [place] [address]96109 02/11/2025 1:30 PM CDT Appointment [facility] [address] [place] [address] Roc Fulton MD Three [facility]. [place] [address] [place], [place] 841929 02/13/2025 1:30 PM CDT Appointment [facility] [place] [address] Roc Fulton MD Three [facility]. [facility] [address] [place], [place] 500179 02/16/2025 1:30 PM CDT Appointment [facility] [place] [address] Roc Fulton MD Three [facility] [address] [place], [place] [address] 02/18/2025 1:30 PM CDT Appointment [facility] [place] [address] Roc Fulton MD Three [facility]. [facility] [address] [place], [place] [address]79 02/20/2025 1:30 PM CDT Appointment [facility] [place] [address] Roc Fulton MD Three [facility] [address] [place], [place] [address]699 02/25/2025 1:30 PM CDT Appointment [facility] [address] [place] [address] Roc Fulton MD Three [facility]. [place] [address] [place], [place] [address]229 02/27/2025 1:30 PM CDT Appointment [facility] [address] [place] [address] Roc Fulton MD Three [facility]. [place] [address] [place], [place] 560349 03/02/2025 1:30 PM CDT Appointment [facility] [address] [place] [address] Roc Fulton MD Three [facility]. [place] [address] [place], [place] 191389 03/04/2025 1:30 PM CDT Appointment [facility] [place] [address] Roc Fulton MD Three [facility]. [facility] [address] [place], [place] [address] 03/06/2025 1:30 PM CDT Appointment [facility] [place] [address] Roc Fulton MD Three [facility]. [place] [address] [place], [place] 370989 03/09/2025 1:30 PM CDT Appointment [facility] [address] [place] [address] Roc Fulton MD Three [facility]. [place] [address] [place] [address] 03/18/2025 2:30 PM CDT Office Visit Carl[facility], [address] [place] [address] Roc Fulton MD Three [facility]. [place] [address] [place] [address] 05/11/2025 2:40 PM COMMERCIAL REAL ESTATE MANAGER Office Visit [facility] - [place] [address] [place] [address] Hannah Garrison MD [facility]8 [place], [place] [id number] documented as of this encounter Goals Goal Patient Goal Type Associated Problems Recent Progress Patient-Stated? Author Patient will return to prior living situation and remain independent in ADLs upon discharge from hospital General No Diana Todd, wirer passenger car - family caregiver with be involved in care transitions and discharge planning General No Nicole Cole RN Safety Patient/family will have appropriate support at home upon discharge General No Ayleen Garcia, PLANT OPERATOR documented as of this encounter Visit Diagnoses Not on filedocumented in this encounter Additional Health Concerns Infection Onset Date Last Indicated Resolved Time COVID-19 Rule Out 05/13/2023 05/13/2023 05/13/2023 4:14 PM COMMERCIAL REAL ESTATE MANAGER COVID-19 Rule Out 05/13/2023 05/13/2023 05/14/2023 1:35 AM COMMERCIAL REAL ESTATE MANAGER COVID-19 Rule Out 07/08/2023 07/08/2023 07/08/2023 5:34 PM COMMERCIAL REAL ESTATE MANAGER COVID-19 Rule Out 07/07/2024 07/07/2024 07/07/2024 7:39 AM COMMERCIAL REAL ESTATE MANAGER Assessment Noted Time PHQ-9 Depression Total Score: 0 11/19/19 3:11 PM CDT documented as of this encounter Care Teams Power Generation Technician Relationship Specialty Start Date End Date Adrian Lee MD [address] [place] [address] PCP - General FAMILY PRACTICE 04/22/18 05/08/24 Adrienne Marin MD [address] [place] [address] PCP - General INTERNAL MEDICINE 05/09/24 Gladys Sanchez MD [address] [place] [address] [place] Paving Stone Installer CARDIOVASCULAR DISEASE 05/28/19 Anna Landry, aviation technician aircraft (Ambulatory) REGISTERED NURSE 10/29/24 11/02/24 Anna Landry aviation technician aircraft (Ambulatory) REGISTERED NURSE 11/03/24 11/09/24 documented as of this encounter
--- OUTSIDE RECORDS SUMMARY | 2024-12-25 10:30 | XMS_ITS | Encounter Summary ---
Author Organization [facility] Address Critical access hospital6 [place] [address] Care Team Providers Care Test Manager Name Role Phone Adrian Lee MD Primary Care Provider [phone] Gladys Sanchez MD Unavailable [phone] Adrienne Marin MD Primary Care Provider [phone] Anna Landry RN Unavailable Unavailable Anna Landry RN Unavailable Unavailable Encounter Details Date Type Department Care Team (Late st Contact Info) Description 05/21/2023 Hospital Follow-up Call [facility] Unit [address] [place] [address] Amanda Ohara RN Social History Tobacco Use Types Packs/Day Years Used Date Smoking Tobacco: Never Passive Smoke Exposure: Never Smokeless Tobacco: Never Comments:non-smoker Alcohol Use Standard Drinks/Week Comments No 0 (1 standard drink = 0.6 oz pur e alcohol) [facility] Utilities Answer Date Recorded In the past 12 months has e [employer], gas, oil, or water [employer] threatened to shut off services in your [...] in a fdc (including now)? No 05/13/2023 Sex and Gender Information Value Date Recorded Sex Assigned at Male 07/08/2024 7:30 AM MANAGER MOBILE Legal Sex Male 8:56 PM CDT Gender Identity Male 07/08/2024 7:30 AM MANAGER MOBILE Sexual Orientation Straight 07/08/2024 7: 30 AM MANAGER MOBILE documented as of this encounter Functional Status [...] Author Status No 05/13/2023 9:00 PM Dary Fortnue RN Active * Do you have difficulty [...] Info) Description 12/29/2024 1:30 PM CDT Appointment [facility] [place] [address] Roc Fulton MD [address] [address] 12/31/2024 1:30 PM CDT Appointment [facility] [place] [address] Roc Fulton MD [address] [address] 01/02/2025 1:30 PM CDT Appointment [facility] [place] [address] Roc Fulton MD [address] [facility]. [place] [address] [place], [place] [address] 01/05/2025 1:30 PM CDT Appointment [facility] [address] [place] [address] Roc Fulton MD Three [facility]. [place] [address] [place], [place] [address] 01/07/2025 1:30 PM CDT Appointment [facility] [address] [place] [address] Roc Fulton MD Three [facility]. [place] [address] [place], [place] [address] 01/09/2025 1:30 PM CDT Appointment [facility] [address] [place] [address] Roc Fulton MD Three [facility]. [facility] [address] [place], [place] [address] 01/12/2025 1:30 PM CDT Appointment [facility] [place] [address] Roc Fulton MD Three [facility]. [place] [address] [place], [place] [address] 01/14/2025 1:30 PM CDT Appointment [facility] [address] [place] [address] Roc Fulton MD Three [facility]. [place] [address] [place], [place] [address] 01/16/2025 1:30 PM CDT Appointment [facility] [address] [place] [address] Roc Fulton MD Three [facility]. [place] [address] [place], [place] [address] 01/19/2025 1:30 PM CDT Appointment [facility] [address] [place] [address] Roc Fulton MD Three [facility]. [place] [address] [place], [place] [address] 01/21/2025 1:30 PM CDT Appointment [facility] [address] [place] [address] [address] [place] [address] Roc Fulton MD Three [facility]. [facility] [address] [place], [place] [address] 01/23/2025 1:30 PM CDT Appointment [facility] [place] [address] Roc Fulton MD Three [facility]. [facility] [address] [place], [place] [address] 01/26/2025 1:30 PM CDT Appointment [facility] [place] [address] Roc Fulton MD Three [facility]. [facility] [address] [place], [place] [address] 01/28/2025 1:30 PM CDT Appointment [facility] [address] [place] [address] Roc Fulton MD Three [facility]. [facility] [address] [place], [place] [address] 01/30/2025 1:30 PM CDT Appointment [facility] [address] [place] [address] Roc Fulton MD [address] [facility]. [facility] [address] [place] [address] 02/02/2025 1:30 PM CDT Appointment [facility] [address] [place] [address] Roc Fulton MD Three [facility]. [facility] [address] [place] [address] 02/03/2025 11:00 AM CDT Office Visit [facility] Mult[facility]ty Care - [facility] [address] [facility], [address] [place] [address] Nathan Lechuga MD 3 [place] [address] 02/04/2025 1:30 PM CDT Appointment [facility] [place] [address] Roc Fulton MD Three [facility]. [address] [address] 02/06/2025 1:30 PM CDT Appointment [facility] [address] [place] [address] Roc Fulton MD [facility]. [facility] [address] [place] [address] 02/09/2025 1:30 PM CDT Appointment [facility] [address] [place] [address] Roc Fulton MD Three [facility]. [place] [address] [place], [place] [address] 02/11/2025 1:30 PM CDT Appointment [facility] [address] [place] [address] Roc Fulton MD Three [facility]. [place] [address] [place], [place] [address] 02/13/2025 1:30 PM CDT Appointment [facility] [address] [place] [address] Roc Fulton MD Three [facility]. [place] [address] [place], [place] 4660[address] 02/16/2025 1:30 PM CDT Appointment [facility] [facility] [place] [address] Roc Fulton MD [address] [facility]. [facility] [address] [place], [place] [address] 02/18/2025 1:30 PM CDT Appointment [facility] [place] [address] Roc Fulton MD Three [facility]. [place] [address] [place], [place] [address] 02/20/2025 1:30 PM CDT Appointment [facility] [place] [address] Roc Fulton MD Three [facility]. [place] [address] [place], [place] [address] 02/25/2025 1:30 PM CDT Appointment [facility] [address] [place] [address] Roc Fulton MD Three [facility]. [facility] [address] [place], [place] [address] 02/27/2025 1:30 PM CDT Appointment [facility] [place] [address] Roc Fulton MD Three [facility]. [facility] [address] [place], [place] [address] 03/02/2025 1:30 PM CDT Appointment [facility] [address] [place] [address] Roc Fulton MD Three [facility] [address] [place], [place] [address] 03/04/2025 1:30 PM CDT Appointment [facility] [address] [place], [place] [address] [address] Roc Fulton MD Three [address] [address] 03/06/2025 1:30 PM CDT Appointment [facility] [place] [address] Roc Fulton MD Three [facility] [address] [place], [place] [address] 03/09/2025 1:30 PM CDT Appointment [facility] [place] [address] Roc Fulton MD Three [facility] [address] [place], [place] [address] 03/18/2025 2:30 PM CDT Office Visit [facility] THREE [facility], [address] [place], [place] [address] Roc Fulton MD Three [facility]. [place] [address] [place], [place] [address] 05/11/2025 2:40 PM MANAGER MOBILE Office Visit [facility] Diabetes and Endocrinology - [place] [address] [place] [address] Hannah Garrison MD [facility]8 [place] [address] documented as of this encounter Goals Goal Patient Goal Type Associated Problems Recent Progress Patient-Stated? Author Patient will return to prior living situation and remain independent in ADLs upon discharge from hospital General No Diana Todd, diagrammer and seamer - family caregiver with be involved in care transitions and discharge planning General No Nicole Cole RN Safety Patient/family will have appropriate support at home upon discharge General No Ayleen Garcia, ELECTROSTATIC PAINTER documented as of this encounter Visit Diagnoses Not on filedocumented in this encounter Additional Health Concerns Infection Onset Date Last Indicated Resolved Time COVID-19 Rule Out 07/08/2023 07/08/2023 07/08/2023 5:34 PM MANAGER MOBILE COVID-19 Rule Out 07/07/2024 07/07/2024 07/07/2024 7:39 AM MANAGER MOBILE Assessment Noted Time PHQ-9 Depression Total Score: 0 11/19/19 22 3:11 PM CDT documented as of this encounter Care Teams Test Manager Relationship Specialty Start Date End Date Adrian Lee MD [address] [place] [address] PCP - General FAMILY PRACTICE 04/22/18 05/08/24 Adrienne Marin MD [address] [place] [address] PCP - General INTERNAL MEDICINE 05/09/24 [place] [address] [place] [address] [place] [address] [place] Anesthesiologist Assistant CARDIOVASCULAR DISEASE 05/28/19 Anna Landry, hand patcher (Ambulatory) REGISTERED NURSE 10/29/24 11/02/24 Anna Landry, hand patcher (Ambulatory) REGISTERED NURSE 11/03/24 11/09/24 documented as of this encounter
--- OUTSIDE RECORDS SUMMARY | 2024-12-25 10:30 | XMS_ITS | Encounter Summary ---
Author Organization [facility] Address Formerly [facility] [place] [address] Care Team Providers Care Roofer Assistant Name Role Phone Gladys Sanchez MD Unavailable [phone] Adrienne Marin MD Primary Care Provider [phone] Anna Landry RN Unavailable Unavailable Anna Landry RN Unavailable Unavailable Encounter Details Date Type Department Care Team (Late st Contact Info) Description 10/13/2024 Novi Message Enc [facility] Call Center [address] [place] [address] [facility] Provider levETIRAcetam (KEPPRA) 750 MG tablet Social History Tobacco Use Types Packs/Day Years Used Date Smoking Tobacco: Never Passive Smoke Exposure: Never Smokeless Tobacco: Never Comments:non-smoker Alcohol Use Standard Drinks/Week Comments No 0 (1 standard drink = 0.6 oz pur e alcohol) [facility] Utilities Answer Date Recorded In the past 12 months has [employer], oil, or water [place] threatened to shut off services in your [...] place to sleep or slept in a chcf (including now)? No 05/13/2023 Housing Stability Vital Sign Answer Jayden e Recorded In the last 12 months, was t here a time when you were not able to pay the mortgage or rent on time? No 07/15/2024 In the past 12 months, how m any times have you moved where you were living? 0 07/15/2024 At any time in the past 12 m [facility], were you homeless or living in a chcf (including now)? No 07/15/2024 Sex and Gender Information Value Date Recorded Sex Assigned at Male 07/08/2024 7:30 AM METAL PRECISION MACHINE ASSEMBLER Legal Sex Male 8:56 PM CDT Gender Identity Male 07/08/2024 7:30 AM METAL PRECISION MACHINE ASSEMBLER Sexual Orientation Straight 07/08/2024 7: 30 AM METAL PRECISION MACHINE ASSEMBLER documented as of this encounter Functional [...] Author Status No 07/15/2024 10:54 PM Moe Prasons RN Active documented in this encounter Plan of Treatment Upcoming Encounters Date Type Department Care Team (Late st Contact Info) Description 12/29/2024 1:30 PM CDT Appointment [facility] [address] [place] [address] Roc Fulton MD [address] [address] 12/31/2024 1:30 PM CDT Appointment [facility] [address] [place] [address] Roc Fulton MD Three [facility]. [address] [place], [place] [address] 01/02/2025 1:30 PM CDT Appointment [facility] [address] [place] [address] Roc Fulton MD Three [facility] [address] [place], [place] [address] 01/05/2025 1:30 PM CDT Appointment [facility] [address] [place] [address] Roc Fulton MD Three [facility] [address] [place], [place] [address] 01/07/2025 1:30 PM CDT Appointment [facility] [address] [place] [address] Roc Fulton MD [facility] [address] [place] [address] 01/09/2025 1:30 PM CDT Appointment [facility] [address] [place] [address] Roc Fulton MD [facility] [address] [place], [place] [address] 01/12/2025 1:30 PM CDT Appointment [facility] [address] [place] [address] Roc Fulton MD Three [facility]. [facility] [address] [place], [place] [address] 01/14/2025 1:30 PM CDT Appointment [facility] [address] [place] [address] Roc Fulton MD Three [facility]. [facility] [address] [place], [place] [address] 01/16/2025 1:30 PM CDT Appointment [facility] [address] [place] [address] Roc Fulton MD Three [facility]. [facility] [address] [place], [place] [address] 01/19/2025 1:30 PM CDT Appointment [facility] [place] [address] Roc Fulton MD Three [facility]. [facility] [address] [place], [place] [address] 01/21/2025 1:30 PM CDT Appointment [facility] [place] [address] Roc Fulton MD Three [facility]. [facility] [address] [place], [place] [address] 01/23/2025 1:30 PM CDT Appointment [facility] [address] [place] [address] Roc Fulton MD Three [facility] [address] [place], [place] [address] 01/26/2025 1:30 PM CDT Appointment [facility] [address] [place] [address] Roc Fulton MD Three [facility]. [facility] [address] [place] [address] 01/28/2025 1:30 PM CDT Appointment [facility] [address] [place] [address] Roc Fulton MD Three [facility]. [facility] [address] [place] [address] 01/30/2025 1:30 PM CDT Appointment [facility] [address] [place] [address] Roc Fulton MD Three [facility]. [facility] [address] [place] [address] 02/02/2025 1:30 PM CDT Appointment [facility] [place] [address] Roc Fulton MD Three [facility]. [address] [address] 02/03/2025 11:00 AM CDT Office Visit [facility] Multispecialty Care - [facility] [address] [facility], [address] [place] [address] Nathan Lechuga MD [address] [place] [address] 02/04/2025 1:30 PM CDT Appointment [facility] [address] [place] [address] Roc Fulton MD Three [facility]. [address] [place] [address] 02/06/2025 1:30 PM CDT Appointment [facility] [address] [place] [address] Roc Fulton MD Three [facility]. [address] [place], [place] [address] 02/09/2025 1:30 PM CDT Appointment [facility] [address] [place] [address] Roc Fulton MD Three [facility]. [address] [place], [place] [address] 02/11/2025 1:30 PM CDT Appointment [facility] [place] [address] Roc Fulton MD Three [facility]. [address] [place], [place] [address] 02/13/2025 1:30 PM CDT Appointment [facility] [place] [address] Roc Fulton MD Three [facility]. [facility] [address] [place], [place] [address] 02/16/2025 1:30 PM CDT Appointment [facility] [place] [address] Roc Fulton MD Three [facility]. [address] [place] [address] 02/18/2025 1:30 PM CDT Appointment [facility] [place] [address] Roc Fulton MD Three [facility]. [address] [place], [place] [address] 02/20/2025 1:30 PM CDT Appointment [facility] [address] [place] [address] Roc Fulton MD Three [facility]. [address] [place], [place] [address] 02/25/2025 1:30 PM CDT Appointment [facility] [address] [place] [address] Roc Fulton MD Three [facility]. [facility] [address] [place], [place] [address] 02/27/2025 1:30 PM CDT Appointment [facility] [place] [address] Roc Fulton MD Three [facility]. [facility] [address] [place], [place] [address] 03/02/2025 1:30 PM CDT Appointment [facility] [address] [facility] [place] [address] Roc Fulton MD Three [facility]. [facility] [address] [place], [place] [address] 03/04/2025 1:30 PM CDT Appointment [facility] [place] [address] Roc Fulton MD Three [facility]. [facility] [address] [place], [place] [address] 03/06/2025 1:30 PM CDT Appointment [facility] [address] [place] [address] Roc Fulton MD Three [facility]. [facility] [address] [place], [place] [address] 03/09/2025 1:30 PM CDT Appointment [facility] [address] [place] [address] [place] [address] Roc Fulton MD Three [facility] [address] [place], [place] [address] 03/18/2025 2:30 PM CDT Office Visit [facility] THREE [facility], [facility] [address] [place], [place] [address] Roc Fulton MD [facility]. [facility] [address] [place], [place] [address] 05/11/2025 2:40 PM METAL PRECISION MACHINE ASSEMBLER Office Visit [facility] Diabetes and Endocrinology - [address] [address] Hannah Garrison MD [address] [place] [phone] documented as of this encounter Goals Goal Patient Goal Type Associated Problems Recent Progress Patient-Stated? Author Patient will return to prior living situation and remain independent in ADLs upon discharge from hospital General No Diana Todd manager water - family caregiver with be involved in care transitions and discharge planning General No Nicole Cole RN Safety Patient/family will have appropriate support at home upon discharge General No Ayleen Garcia, COMMUNITY WORKER documented as of this encounter Visit Diagnoses Not on filedocumented in this encounter Additional Health Concerns Assessment Noted Time PHQ-9 Depression Total Score: 0 11/19/19 22 3:11 PM CDT documented as of this encounter Care Teams Roofer Assistant Relationship Specialty Start Date End Date Adrienne Marin MD [address] [place] [id number] PCP - General INTERNAL MEDICINE 05/09/24 Gladys Sanchez MD [employer] Dragline Operator CARDIOVASCULAR DISEASE 05/28/19 Anna Landry, salesperson household appliances (Ambulatory) REGISTERED NURSE 10/29/24 11/02/24 Anna Landry salesperson household appliances (Ambulatory) REGISTERED NURSE 11/03/24 11/09/24 documented as of this encounter
[2024-12-25] MEDS: IRON SUCROSE COMPLEX 300 MG in SODIUM CHLORIDE 0.9% IV 250 ML 125 MG IVPB (10:45)
[2024-12-25 10:54] VITALS: BP 143/60; PULSE 76; RESP 16; TEMP 36.4; O2SAT 96; BMI 29.1
[2024-12-25 13:00] VITALS: BP 129/75; PULSE 68; RESP 14; O2SAT 96
--- NOTE | 2024-12-25 13:01 | PC.NURSE ---
Patient tolerated #2 Venofer infusion well. SEE MAR/patient care notes.
== END 2024-12-25 10:24 | disposition home or self-care (01) ==
PROVIDERS: PCP Internal Medicine; Visit Provider Internal Medicine
DX: D50.9 Iron deficiency anemia, unspecified (principal)
CPT/HCPCS: 96365; 96366; J1756; J7050

== ENCOUNTER 2025-01-08 10:22 | Outpatient (CLI) | payer MEDICARE, SELFPAY ==
[2025-01-08 10:35] VITALS: BP 149/67; PULSE 60; RESP 16; TEMP 36.5; O2SAT 97; BMI 29.1
[2025-01-08] MEDS: IRON SUCROSE COMPLEX 300 MG in SODIUM CHLORIDE 0.9% IV 250 ML 125 MG IVPB (10:45)
[2025-01-08 12:52] VITALS: BP 128/64; PULSE 60; RESP 14; O2SAT 97
--- NOTE | 2025-01-08 12:54 | PC.NURSE ---
Tolerated Venofer infusion well. SEE MAR/patient care notes.
== END 2025-01-08 10:23 | disposition home or self-care (01) ==
PROVIDERS: PCP Internal Medicine; Visit Provider Internal Medicine
DX: D50.9 Iron deficiency anemia, unspecified (principal)
CPT/HCPCS: 96365; 96366; J1756; J7050

== ENCOUNTER 2025-02-26 01:54 | Day surgery (SDC) | payer MEDICARE, SELFPAY ==
[2025-02-16 16:31] VITALS: BMI 27.4
--- NOTE | 2025-02-16 17:18 | PC.NURSE ---
Spoke with _Fabiana (sp.) _ regarding medication Plavix. Fabiana_verbalizes understanding that the last dose is to be taken on 02/18/2025_ and the Endoscopist will instruct them when to restart after the procedure.
[2025-02-26 11:04] VITALS: BP 164/61; PULSE 60; RESP 18; TEMP 36.7; O2SAT 97; BMI 27.6
[2025-02-26] MEDS: LACTATED RINGERS 1,000 ML 150 ML IV CONT (11:22)
--- NOTE | 2025-02-26 13:31 | P.PNAN_ITS ---
Anes - Initial Pre Proc Eval Procedure: Operation Date: 02/26/25 12:30 Proposed Procedures p EGD & Diagnostic Colonoscopy - Jules Lau MD Date/Time: 02/26/25 13:31 Surgeon: Jules Lau MD Pre Op Diagnosis: Personal history of colon polyps, anemia Patient Data Age: 74 Gender: M Height: 1.7 m Weight: 80.1 kg Last Vital Signs Temp 98.1 F 02/26/25 11:04 Pulse 60 02/26/25 11:04 Resp 18 02/26/25 11:04 BP 164/61 H 02/26/25 11:04 Pulse Ox 97 02/26/25 11:04 O2 Del Method Room Air 02/26/25 11:04 Allergies Allergy/AdvReac Type Severity Reaction Status Date / Time [facility] ([facility] Allergy Mild Rash Verified 02/26/25 11:07 Cephalosporins Allergy Unknown Verified 02/26/25 11:07 pioglitazone Allergy Unknown Verified 02/26/25 11:07 Home Medications ?Medication ?Instructions ?Recorded ?Confirmed ?Type Adult Multivitamin with Iron 1 tab-cap PO DAILY 02/26/25 History aspirin 81 mg tablet,delayed 81 mg PO DAILY 06/09/22 0 02/26/25 History release atorvastatin 80 mg BYMOUTH HS 06/09/22 History carvedilol 12.5 mg tablet (Coreg) 25 mg PO BID 2 02/26/25 History ferrous sulfate 325 mg (65 mg 325 mg PO DAILY 06/09/22 02/26/25 History iron) tablet (Feosol) fluticasone 250 mcg-salmeterol 50 1 inh inhalation Q12 H 06/09/22 02/26/25 History mcg/dose blistr powdr for inhalation (Wixela Inhub) hydralazine 50 mg tablet 100 mg PO Q8H 06/09/2202/26 History pantoprazole 40 mg tablet,delayed 40 mg PO DAILY@0630 06/09/22 02/26/25 History release (Protonix) sertraline 100 mg tablet (Zoloft) 100 mg PO DAILY 05/2502/26/25 History acetaminophen 650 mg 1,300 mg PO Q8H PRN fever or pain 08/23/24 02/16/25 History tablet,extended release (8 Hour Pain Reliever) alfuzosin 10 mg tablet,extended 10 mg PO DAILY 5 02/26/25 History release 24 hr allopurinol 100 mg tablet 100 mg PO DAILY 08/23/2410/17 History cetirizine 10 mg capsule (All Day 10 mg PO DAILY 08/2302/26/25 History Allergy (cetirizine)) clopidogrel 75 mg tablet (Plavix) 75 mg PO DAILY 08/2302/26/25 History ferrous sulfate 325 mg (65 mg 325 mg PO DAILY 08/23/24 02/16/25 History iron) tablet (Iron (ferrous sulfate)) fiber 1 tablet PO DAILY 08/23/24 0 02/26/25 History fluticasone 250 mcg-salmeterol 50 1 inh inhalation Q12 H 08/23/24 02/16/25 Hist ory mcg/dose blistr powdr for inhalation (Advair Diskus) furosemide 80 mg tablet 80 mg PO DAILY 08/23/2401/24 History gabapentin 300 mg capsule 300 mg PO TID 08/23/2402/26 History insulin aspar prot-insulin aspart 30 unit subcut BID 0 08/23/24 02/16/25 History 100 unit/mL (70-30) subcutaneous pen isosorbide mononitrate 30 mg 30 mg PO DAILY 08/23/24 0 02/26/25 History tablet,extended release 24 hr levetiracetam 750 mg tablet 750 mg PO Q12H 08/23/24 History melatonin 10 mg capsule 10 mg PO HS 08/23/24 5 History insulin NPH-regular 70-30 U-100 subcut BIDAC 02/16/25 History insulin 100 unit/mL subcutaneous pen (Novolin 70-30 FlexPen U-100 Insulin) losartan 25 mg tablet 25 mg PO DAILY 02/16/2510/17 History nifedipine 30 mg tablet,extended 30 mg PO DAILY 02/26/25 History release torsemide 20 mg tablet 40 mg PO DAILY 02/16/2510/17 History Patient hx anesthesia problems: none Family hx anesthesia problems: none Results Review: All pre-operative results and documents have been reviewed as part of the pre- operative evaluation. [facility] Past Medical History Medical History Gout Dyslipidemia CAD (coronary artery disease) Anemia Congestive heart failure Diabetes mellitus type 2, insulin dependent Surgical History Surgical History H/O heart artery stent Social History Social History Smoking status: Never smoker Second hand tobacco smoke exposure: No Alcohol intake: never Substance use: never Substance use type: does not use Do You Feel Safe in your Home?: Yes Lack of Transportation: No Lack of Food: Never True Current Housing: I Have Housing Concerned About Future Housing: No Difficulty Paying Gas/Electric Bills: No Difficulty Paying for Meds: No Currently Unemployed: No Education: Associate Degree Difficulty w/ Childcare or Family Care: No Living arrangements: with family Spiritual care concerns: No Anes - Eval Final PreProcedure Day of Procedure 02/26/25 13:31 Patient weight: normal Heart: regular rate and rhythm Lungs: clear to auscultation Airway: Mallampati scale class II Neurological: alert and oriented Last oral intake: >/= 8 hours ASA classification: III Emergent: no Anesthetic plan: proceed Anesthesia type and monitoring: general GIVS and standard monitoring Results Review: All pre-operative results and documents have been reviewed as part of the pre- operative evaluation. Informed Consent: The patient's anesthetic plan and its attendant risks and benefits were discussed with the patient/family/POA. Questions were solicited and answers provided to the satisfaction of the patient/family/POA.
--- NOTE | 2025-02-26 13:31 | PM.IMHP ---
H&P: HPI History of Present Illness Date/Time: 02/26/25 13:31 Chief Complaint: Anemia Narrative: the patient has been diagnosed with iron deficiency anemia. He has a history of peptic ulcer disease, last EGD in 2021 showing healing of the ulcer. His last colonoscopy was more than 10 years ago, reportedly had polyps. He was recently tested Hemoccult positive but he is Taking Plavix and aspirin. he is now referred for EGD and colonoscopy. Review of Systems Review of Systems: All systems reviewed & are unremarkable except as noted in HPI and below PMFSH Past Medical History Medical History Gout Dyslipidemia CAD (coronary artery disease) Anemia Congestive heart failure Diabetes mellitus type 2, insulin dependent Surgical History Surgical History H/O heart artery stent Social History Social History Smoking status: Never smoker Second hand tobacco smoke exposure: No Alcohol intake: never Substance use: never Substance use type: does not use Do You Feel Safe in your Home?: Yes Lack of Transportation: No Lack of Food: Never True Current Housing: I Have Housing Concerned About Future Housing: No Difficulty Paying Gas/Electric Bills: No Difficulty Paying for Meds: No Currently Unemployed: No Education: Associate Degree Difficulty w/ Childcare or Family Care: No Living arrangements: with family Spiritual care concerns: No Meds Home Medications and Allergies Home Medications ?Medication ?Instructions ?Recorded ?Confirmed ?Type Adult Multivitamin with Iron 1 tab-cap PO DAILY 06/09/22 02/26/25 History aspirin 81 mg tablet,delayed 81 mg PO DAILY 06/09/22 02/26/25 History release atorvastatin 80 mg BYMOUTH HS 06/09/22 02/26/25 History carvedilol 12.5 mg tablet (Coreg) 25 mg PO BID 06/09/22 02/26/25 History ferrous sulfate 325 mg (65 mg 325 mg PO DAILY 06/09/22 02/26/25 History iron) tablet (Feosol) fluticasone 250 mcg-salmeterol 50 1 inh inhalation Q12H 06/09/22 02/26/25 History mcg/dose blistr powdr for inhalation (Wixela Inhub) hydralazine 50 mg tablet 100 mg PO Q8H 06/09/22 02/26/25 History pantoprazole 40 mg tablet,delayed 40 mg PO DAILY@0630 06/09/22 02/26/25 History release (Protonix) sertraline 100 mg tablet (Zoloft) 100 mg PO DAILY 06/09/22 02/26/25 History acetaminophen 650 mg 1,300 mg PO Q8H PRN fever or pain 08/23/24 02/16/25 History tablet,extended release (8 Hour Pain Reliever) alfuzosin 10 mg tablet,extended 10 mg PO DAILY 08/23/24 02/26/25 History release 24 hr allopurinol 100 mg tablet 100 mg PO DAILY 08/23/24 02/26/25 History cetirizine 10 mg capsule (All Day 10 mg PO DAILY 08/23/24 02/26/25 History Allergy (cetirizine)) clopidogrel 75 mg tablet (Plavix) 75 mg PO DAILY 08/23/24 02/26/25 History ferrous sulfate 325 mg (65 mg 325 mg PO DAILY 08/23/24 02/16/25 History iron) tablet (Iron (ferrous sulfate)) fiber 1 tablet PO DAILY 08/23/24 02/26/25 History fluticasone 250 mcg-salmeterol 50 1 inh inhalation Q12H 08/23/24 02/16/25 History mcg/dose blistr powdr for inhalation (Advair Diskus) furosemide 80 mg tablet 80 mg PO DAILY 08/23/24 02/16/25 History gabapentin 300 mg capsule 300 mg PO TID 08/23/24 02/26/25 History insulin aspar prot-insulin aspart 30 unit subcut BID 08/23/24 02/16/25 History 100 unit/mL (70-30) subcutaneous pen isosorbide mononitrate 30 mg 30 mg PO DAILY 08/23/24 02/26/25 History tablet,extended release 24 hr levetiracetam 750 mg tablet 750 mg PO Q12H 08/23/24 02/26/25 History melatonin 10 mg capsule 10 mg PO HS 08/23/24 02/16/25 History insulin NPH-regular 70-30 U-100 subcut BIDAC 02/16/25 History insulin 100 unit/mL subcutaneous pen (Novolin 70-30 FlexPen U-100 Insulin) losartan 25 mg tablet 25 mg PO DAILY 02/16/25 02/26/25 History nifedipine 30 mg tablet,extended 30 mg PO DAILY 02/16/25 02/26/25 History release torsemide 20 mg tablet 40 mg PO DAILY 02/16/25 02/26/25 History Allergies Allergy/AdvReac Type Severity Reaction Status Date / Time cefaclor (From [facility]) Allergy Mild Rash Verified 02/26/25 11:07 Cephalosporins Allergy Unknown Verified 02/26/25 11:07 pioglitazone Allergy Unknown Verified 02/26/25 11:07 Vital Signs Vital Signs - 24 hr 02/26/25 11:04 Temperature 98.1 F Pulse Rate 60 Respiratory Rate 18 Blood Pressure 164/61 H Pulse Oximetry 97 Oxygen Delivery Room Air Exam Const: General: cooperative and healthy appearing Resp: Effort & Inspection: normal respiratory effort and able to speak in complete sentences Auscultation: clear to auscultation bilaterally Cardio: Rate: regular rate Rhythm: regular rhythm GI: Inspection: normal to inspection GI Palp: No No hepatosplenomegaly present Auscultation: normal bowel sounds Rectal Exam: deferred Skin: General skin exam: normal color Psych: Appearance: grossly normal Mental Status: mental status grossly normal Assessment and Plan Assessment and plan (1) Iron deficiency anemia: Code(s): D50.9 - Iron deficiency anemia, unspecified Status: Acute Assessment and Plan: The patient is deemed a good candidate for the procedures. Consent signed. Will proceed.
--- NOTE | 2025-02-26 13:56 | S_PTH ---
PATIENT: Craig Pool LOC: [facility] U#:[id number] AGE/SX: 74/M ROOM: RE02/26/[address]: Jules Lau MD : 1950 BED: DIS: 02/26/2025 SPEC #: [id number] RECD: 02/27/25 07:08 STATUS: TORI RE #: [id number] FELICIA: 02/26/25 13:[address]: Jules Lau DEPT: [facility] Surgical RECD BY: Jannette Maldonado ENTERED: 02/27/25 07:09 SP TYPE: Surgical OTHR DR: Adrienne Marin MD Tissues: A - Gastric Biopsy B - Gastric Biopsy C - Esophageal Biopsy D - Colon Polypectomy E - Colon Polypectomy F - Colon Polypectomy Procedures: Pas with Diastase Grocotts Methenamine Stain Hematoxylin and Eosin Stain Gross and Microscopic Level 4
[2025-02-26 14:30] VITALS: BP 140/69; PULSE 52; RESP 15; O2SAT 92
[2025-02-26 14:40] VITALS: BP 164/80; PULSE 53; RESP 17; O2SAT 96
[2025-02-26 14:50] VITALS: BP 176/81; PULSE 68; RESP 17; O2SAT 99
== END 2025-02-26 15:10 | disposition home or self-care (01) ==
PROVIDERS: PCP Internal Medicine; Referring Provider Nurse Practitioner; Visit Provider Internal Medicine Gastroenterology
PROC: 0DJ08ZZ Inspection of Upper Intestinal Tract, Via Natural or Artificial Opening Endoscopic (ICD-10-PCS; CPT 45378; principal; 2025-02-26 12:30)
DX: D50.9 Iron deficiency anemia, unspecified (principal); D12.2 Benign neoplasm of ascending colon; D12.3 Benign neoplasm of transverse colon; D12.4 Benign neoplasm of descending colon; B37.81 Candidal esophagitis; K29.30 Chronic superficial gastritis without bleeding; Z87.11 Personal history of peptic ulcer disease; Z79.82 Long term (current) use of aspirin; Z79.02 Long term (current) use of antithrombotics/antiplatelets
CPT/HCPCS: 45385; 43239; 88305; 88312; 88313; J2003; J2704; J7120